=== PATIENT | male | born 1955 | race Caucasian/White ===

== ENCOUNTER → 2017-08-07 13:16 | Outpatient (CLI) | payer SELFPAY ==
--- NOTE | 2017-08-07 13:19 | CT_ITS ---
STUDY: CT LEFT ANKLE WITHOUT CONTRAST REASON FOR EXAM: Male, 62 years old. Prior surgeries of the left ankle and nonunion. RADIATION DOSAGE (If Supplied By Facility): CTDIvol = ( 15.35 ) mGy, DLP = ( 412.55 ) mGycm TECHNIQUE: Thin section transaxial imaging of the ankle was obtained, with sagittal and coronal reconstructed images. Individualized dose optimization techniques were used for this CT. COMPARISON: Comparison is made with prior examination dated March 30, 2017. FINDINGS: The external fixator device has been removed. Once again, there is evidence of prior fusion of the distal tibia with the calcaneus and the talus with multiple screws and sideplate fixation device. There is also evidence of a anterior screw fixation of the distal tibia to the talus. The joint space between the distal tibia and talus is still present. There is also presence of the joint space between the posterior talus and calcaneus. There is evidence of osteopenia of the visualized bones. Diffuse persistent soft tissue swelling. CT/Extremity Lower without Contra IMPRESSION: Prior fixation as described. The joint spaces are still visible. Diffuse osteopenia and soft tissue swelling. Electronically Signed: Markell Osman MD at 9:25 EST Tel [phone], Service support ,
== END ==
PROVIDERS: Family Provider Family Medicine; PCP Family Medicine; Visit Provider Podiatrist
DX: M96.0 Pseudarthrosis after fusion or arthrodesis (principal); Z98.1 Arthrodesis status
CPT/HCPCS: 73700

== ENCOUNTER → 2018-06-18 16:47 | Outpatient (CLI) | payer SELFPAY ==
[2017-03-31 14:56] VITALS: BMI 55.4
[2018-06-18 17:31] LABS: Absolute Lymphocyte Count 0.79 X10^3/ul (0.83-4.51); Absolute Neutrophil Count 4.7 X10^3/uL (2.0-7.7); Basophil# 0.02 X10^3/uL; Basophil% 0.3 % (0-1); Eosinophil# 0.04 X10^3/uL; Eosinophils% 0.6 % (0-5); Hematocrit 42.5 % (40-54); Hemoglobin 12.2 g/dl (13.0-16.5); Lymphocyte # 0.79 X10^3/ul (4.0); Lymphocyte % 12.4 % (19-41); Mean Corp Hgb Conc 28.7 g/gl (32-36); Mean Corpuscular Hgb 25.4 pg (27.0-32.0); Mean Corpuscular Volume 88.5 fL (80-94); Mean Platelet Vol. 10.7 fl (6.2-12.0); Monocyte# 0.77 X10^3/uL; Monocyte% 12.1 % (0-10); Neutrophil # 4.72 X10^3/uL (2.7-7.7); Neutrophil % 74.4 % (47-70); POSITIVE COUNT NO; POSITIVE DIFFERENTIAL NO; POSITIVE MORPHOLOGY NO; Platelet Count 235 K/mm3 (150-450); RBC Distribution Width CV 17.6 % (11.6-14.6); White Blood Count 6.4 K/mm3 (4.4-11.0)
[2018-06-18 17:42] LABS: Erythrocyte Sedimentation Rate 30 mm/hr (0-20)
[2018-06-18 17:53] LABS: ALB/GLOB Ratio 0.6 RATIO (0.9-2.4); AST(SGOT) 18 U/L (15-37); Alanine Aminotransfer ALT/SGPT 19 U/L (16-61); Albumin, Serum 2.9 g/dL (3.2-5.0); Alkaline Phosphatase 96 U/L (45-117); Anion Gap 5 (5-15); BUN 28 mg/dL (7-18); BUN/Creat Ratio 25.2 RATIO (10-20); Calcium,Total 8.2 mg/dL (8.5-10.1); Chloride 97 mmol/L (98-107); Creatinine, Serum 1.11 mg/dL (0.70-1.30); EST Glomerular Filtration Rate 71 mL/min (>60); Est Glom Filt Rate - Afr Amer 86 mL/min (>60); Globulin 4.9 g/dL (2.2-4.2); Glucose 102 mg/dL (74-106); Potassium 4.2 mmol/L (3.5-5.1); Protein, Total 7.8 g/dL (6.4-8.2); Sodium Level 140 mmol/L (136-145)
== END ==
PROVIDERS: Family Provider Family Medicine; PCP Family Medicine; Referring Provider Podiatrist; Visit Provider Podiatrist
DX: L03.119 Cellulitis of unspecified part of limb (principal); L97.509 Non-pressure chronic ulcer of other part of unspecified foot with unspecified severity
CPT/HCPCS: 36415; 80053; 85025; 85652; 86140; 87070; 87077; 87186; 87205

== ENCOUNTER → 2018-07-09 14:31 | Outpatient (CLI) | payer SELFPAY ==
--- NOTE | 2018-07-09 14:41 | CT_ITS ---
HISTORY: TALAR FUSION. Patient has had 3 ankle surgeries and is currently in external fixation device. Scanned in lateral position. TECHNIQUE: Routine bone CT protocol was performed of the . 2-D reformats were performed by the technologist. A radiation dose optimization technique was used for this scan. IV Contrast dosage and agent: None. COMPARISON: CT left ankle 08/07/2017 FINDINGS: Unavoidable streak artifact related to external fixator hardware. 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 Previously seen tibiotalar surgical arthrodesis screws and lateral side plate have been removed and an external fixator put in place. The external fixator is anchored with tibial screws, a posterior calcaneal screw, and left midfoot screw. Surgical resection of the distal left fibula, unchanged. The talar dome shows collapse and fragmentation, new compared to previous in keeping with avascular necrosis. Bone infection is not excluded. Bony irregularity of the tibiotalar interface and subtalar joint without bony union. Fibrous union is still possible. CT/Extremity Lower without Contra IMPRESSION: 1. Interval change with external fixator now in place. 2. The left talar dome shows interval collapse and fragmentation in keeping with avascular necrosis. Underlying bone infection is not excluded. 3. The tibiotalar and subtalar joints show no solid bony union but fibrous union remains possible. Individualized dose optimization techniques were used for this CT. at 0610 Reported and signed by: Kulwant Hamm MD Electronically Signed: Kulwant Hamm, at 6:09 EST Tel , Service support ,
--- OUTSIDE RECORDS SUMMARY | 2018-09-11 02:46 | XMS RPT_ITS ---
:1955 Author Organization [facility] Care Team Providers Name Role Phone DARRIN MEJÍA CNP Attending Unavailable MEREDITH WALSH, DR. DAWSON Raman Primary Care Unavailable OWOC DO, DR. RACHEL Lau Attending Unavailable MEREDITH WALSH, DR. DAWSON Raman Primary Care Unavailable ANAIS WALSH MD. LULU Ospina Consulting Unavailable ANAIS WALSH, MD. LULU Ospina Admitting Unavailable ANAIS WALSH MD. LULU Ospina Attending Unavailable MEREDITH WALSH, DR. DAWSON Raman Primary Care Unavailable MEREDITH WALSH, DR. DAWSON Raman Consulting Unavailable MEREDITH WALSH, DR. DAWSON Raman Primary Care Unavailable ANAIS WALSH MD. LULU Ospina Consulting Unavailable NORA WALSH, DR. WRAY Attending Unavailable FRANIA, CROW J Attending Unavailable UNASSIGNED, DOCTOR Primary Care Unavailable FRANIA, CROW J Attending Unavailable UNASSIGNED, DOCTOR Primary Care Unavailable Fascione, Aubrie Attending Unavailable Fascione, Aubrie Referring Unavailable MEREDITH, DAWSON Primary Care Unavailable Fascione, Aubrie Attending Unavailable Fascione, Aubrie Referring Unavailable MEREDITH, DAWSON Primary Care Unavailable Fascione, Aubrie Attending Unavailable MEREDITH, DAWSON Primary Care Unavailable PROBLEMS PROBLEMS DATE TYPE CONDITION / CODE ATTENDING STATUS SOURCE 04/20/2018 Admitting [facility] compl of other [facility], Active [facility] Diagnosis internal joint CROW J System prosthesis, 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-10) 04/20/2018 Admitting Type 2 diabetes [facility], Active [facility] 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) 04/20/2018 Admitting Charcot's joint, [facility], Active [facility] Diagnosis left ankle and foot CROW J System / M14.672(ICD-10) Repository 08/22/2017 Unknown M96.0 - Fascione, Active [place] Pseudarthrosis after [facility] fusion or Hospital arthrodesis / Repository M96.0(ICD-10) PROCEDURES PROCEDURES No Procedure Records FoundRESULTS RESULTS EXTREMITY LOWER Observed: 07/09/2018 Status: F Source: [place] WITHOUT CONTRA 2:42 PM [facility] HOSPITAL REPOSITORY [facility] Imaging Services [address] [place] [address] Extremity Lower without Contra MR#: [id number] Acct: [id number] Name: SHEREE MUNIZ Rep #: [id number] : 1955 M 63 From: Kulwant Hamm MD PCP: Dawson Olsen DO Status: REG CLI Study: Extremity Lower without Contra Date of Exam: 07/09/18 Exam# [id number] Ordering Dr: Aubrie Valdez DPM HISTORY: TALAR FUSION. Patient has had 3 ankle surgeries and is currently in external fixation device. Scanned in lateral position. TECHNIQUE: Routine bone CT protocol was performed of the . 2-D reformats were performed by the technologist. A radiation dose optimization technique was used for this scan. IV Contrast dosage and agent: None. COMPARISON: CT left ankle 08/07/2017 FINDINGS: Unavoidable streak artifact related to external fixator hardware. 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 Previously seen tibiotalar surgical arthrodesis screws and lateral side plate have been removed and an external fixator put in place. The external fixator is anchored with tibial screws, a posterior calcaneal screw, and left midfoot screw. Surgical resection of the distal left fibula, unchanged. The talar dome shows collapse and fragmentation, new compared to previous in keeping with avascular necrosis. Bone infection is not excluded. Bony irregularity of the tibiotalar interface and subtalar joint without bony union. Fibrous union is still possible. CT/Extremity Lower without Contra IMPRESSION: 1. Interval change with external fixator now in place. 2. The left talar dome shows interval collapse and fragmentation in keeping with avascular necrosis. Underlying bone infection is not excluded. 3. The tibiotalar and subtalar joints show no solid bony union but fibrous union remains possible. Individualized dose optimization techniques were used for this CT. at 0610 Reported and signed by: Kulwant Hamm MD Electronically Signed: Kulwant Hamm, at 6:09 EST Tel , Service support , CC: Dawson Olsen DO; Aubrie Valdez DPM Dehydrating Press Operator: Signed CBC Collected: 06/21/2018 Status: F Source: [facility] 1:47 PM [facility] REPOSITORY TYPE CODE TESTS RESULT OUT OF REFERENCE UNITS RANGE LAB WBC(LOINC) 4.50-10.80 10 3/mcL WBC 5.30 LAB RBCCT(LOINC 4.50-6.00 10 6/mcL ) RBC 4.86 LAB HGB(LOINC) 13.0-17.5 G/dL Low Hgb 12.3 LAB HCT(LOINC) 40.0-52.0 % Low Hct 39.5 LAB MCV(LOINC) 81.0-100.0 fL MCV 81.4 LAB MCH(LOINC) 27.0-33.0 pg Low MCH 25.4 LAB MCHC(LOINC) 32.0-36.0 G/dL Low MCHC 31.2 LAB RDW(LOINC) 11.5-15.5 % High RDW 18.8 LAB PLT(LOINC) 150-450 10 3/mcL Platelet 253 LAB MPV(LOINC) 6.4-10.5 fL MPV 8.2 Performed By: #### CBC, ADIFF, ANEU, TROPI, BMP, PBNP, GFR #### [address] [address] .AUTO DIFF Collected: 06/21/2018 Status: F Source: [facility] 1:47 PM [facility] REPOSITORY TYPE CODE TESTS RESULT OUT OF REFERENCE UNITS RANGE LAB TARI(LOINC) 50.0-75.0 % High Neutrophil % 76.7 LAB LYM(LOINC) 20.0-40.0 % Low Lymphocyte % 13.0 LAB MON(LOINC) 2.0-13.0 % Monocyte % 8.3 LAB EO(LOINC) 0.0-6.0 % Eosinophil % 1.4 LAB BAS(LOINC) 0.0-2.5 % Basophil % 0.6 LAB ABLYM(LOIN 0.90-4.32 10 3/mcL C) Low Lymphocyte, 0.70 Absolute LAB NADIYA(LOINC 0.09-1.40 10 3/mcL ) Monocyte, 0.40 Absolute LAB AEOS(LOINC 0.00-0.65 10 3/mcL ) Eosinophil, 0.10 Absolute LAB ABAS(LOINC 0.00-0.27 10 3/mcL ) Basophil, 0.00 Absolute Performed By: #### CBC, ADIFF, ANEU, TROPI, BMP, PBNP, GFR #### [address] [address] .NEUABS Collected: 06/21/2018 Status: F Source: [facility] 1:47 PM [facility] REPOSITORY TYPE CODE TESTS RESULT OUT OF REFERENCE UNITS RANGE LAB ANEU(LOINC) 2.25-8.10 10 3/mcL Neutrophil, 4.10 Absolute Performed By: #### CBC, ADIFF, ANEU, TROPI, BMP, PBNP, GFR #### [address] [address] TROPI Collected: 06/21/2018 Status: F Source: [facility] 1:47 PM [facility] REPOSITORY TYPE CODE TESTS RESULT OUT OF REFERENCE UNITS RANGE LAB TROPI(LOINC 0.000-0.040 ng/mL ) Troponin I 0.020 Result Comment: Troponin I reference ranges (02/24/14): 0.00-0.040 ng/mL Negative and non-diagnostic. >0.040 ng/mL Consistent with cardiac damage, increased clinical risk and possibility of myocardial infarction. Serial measurements, a rise & fall in test results, clinical history, appropriate symptoms and/or ECG changes may help assess possibility of NH. *Other non-acute coronary syndrome conditions such as CHF, myocarditis, pulmonary emboli, sepsis and cardiac surgery could result in myocardial damage and increased troponin levels. Performed By: #### CBC, ADIFF, ANEU, TROPI, BMP, PBNP, GFR #### [address] [address] BMP Collected: 06/21/2018 Status: F Source: [facility] 1:47 [facility] REPOSITORY TYPE CODE TESTS RESULT OUT OF REFERENCE UNITS RANGE LAB GLU(LOINC) 82-115 mg/dL Glucose High Level 180 LAB NA(LOINC) 136-145 mEq/L Sodium Level 139 LAB K(LOINC) 3.5-5.0 mEq/L Potassium Level 4.5 LAB CL(LOINC) 98-110 mEq/L Chloride 99 LAB CO2(LOINC) 22-32 mEq/L CO2 High 35 LAB EBAL(LOINC 4.0-15.0 mEq/L ) Electrolyte Balance 5.0 LAB BUN(LOINC) 8.0-22.0 mg/dL BUN High 46.0 LAB CRE(LOINC) 0.60-1.40 mg/dL Creatinine Lvl (s) 1.00 LAB BC(LOINC) 10.0-22.0 ratio High BUN/Creatinine 46.0 Ratio LAB CA(LOINC) 8.4-10.1 mg/dL Low Calcium Lvl 7.9 Performed By: #### CBC, ADIFF, ANEU, TROPI, BMP, PBNP, GFR #### [address] [address] PBNP Collected: 06/21/2018 Status: F Source: [facility] 1:47 PM [facility] REPOSITORY TYPE CODE TESTS RESULT OUT OF REFERENCE UNITS RANGE LAB PBNP(LOINC) 0-900 pg/mL High N-Terminal 4628 proBNP Result Comment: NT-proBNP results of less than 300 pg/mL effectively rules out acute congestive heart failure with 99% negative predictive value. Performed By: #### CBC, ADIFF, ANEU, TROPI, BMP, PBNP, GFR #### [address] [address] .GFR Collected: 06/21/2018 Status: F Source: [facility] 1:47 PM [facility] REPOSITORY TYPE CODE TESTS RESULT OUT OF REFERENCE UNITS RANGE LAB GFRAA(LOINC ml/min/1.73 ) sqm GFR >60 Ghanaian Result Comment: GFR Population mean for , Non- Americans Ages 20-29 = 116 mL/min/1.73 sq.m. Ages 30-39 = 107 mL/min/1.73 sq.m. Ages 40-49 = 99 mL/min/1.73 sq.m. Ages 50-59 = 93 mL/min/1.73 sq.m. Ages 60-69 = 85 mL/min/1.73 sq.m. Ages 70+ = 75 mL/min/1.73 sq.m. Chronic Kidney Disease: Less than 60 mL/min/1.73 square meters End Stage Renal Disease: Less than 15 mL/min/1.73 square meters LAB GFRNO(LOINC) ml/min/1.73sqm GFR Non- >60 Result Comment: GFR Population mean for , Non- Americans Ages 20-29 = 116 mL/min/1.73 sq.m. Ages 30-39 = 107 mL/min/1.73 sq.m. Ages 40-49 = 99 mL/min/1.73 sq.m. Ages 50-59 = 93 mL/min/1.73 sq.m. Ages 60-69 = 85 mL/min/1.73 sq.m. Ages 70+ = 75 mL/min/1.73 sq.m. Chronic Kidney Disease: Less than 60 mL/min/1.73 square meters End Stage Renal Disease: Less than 15 mL/min/1.73 square meters Performed By: #### CBC, ADIFF, ANEU, TROPI, BMP, PBNP, GFR #### [place] [id number] [place] [address] XR CHEST 1 VIEW Observed: 06/21/2018 Status: F Source: [facility] 1:13 PM [facility] REPOSITORY ORIGINAL XR CHEST 1 VIEW PORTABLE AP TIME: 1:29 PM CLINICAL STATEMENT: chest pain. COMPARISON: 05/25/2018 FINDINGS: The cardiomediastinal silhouette is unchanged with redemonstration of cardiomegaly. Lung aeration appears similar to the previous examination with coarsening of the lung markings and LEFT lowe r lobe airspace disease. No large effusion, vascular congestion, or pneumothorax is shown. IMPRESSION: No significant change from 05/25/2018. Interpreted By: Va Baird MD Preliminary Report By: Va Baird MD Electronically Signed By: Va Baird MD Dictated Date: 06/21/2018 1:40:18 PM Prelim Date: 06/21/2018 1:40:18 PM Sign Date: 06/21/2018 1:45:12 PM CBC W/DIFF, AUTOMATED Collected: 06/18/2018 Status: F Source: [place] 4:51 PM [facility] REPOSITORY TYPE CODE TESTS RESULT OUT OF RANGE REFERENCE UNITS LAB L100.1000 4.4-11.0 K/mm3 Normal WBC 6.4 LAB L100.1200 4.6-6.2 M/mm3 Normal RBC 4.80 LAB L100.1300 13.0-16.5 g/dl Low HGB 12.2 LAB L100.1400 40-54 % Normal HCT 42.5 LAB L100.1500 80-94 fL Normal MCV 88.5 LAB L100.1600 27.0-32.0 pg Low MCH 25.4 LAB L100.1700 32-36 g/gl Low MCHC 28.7 LAB L100.1810 11.6-14.6 % High RDW CV 17.6 LAB L100.1820 35.1-43.9 fl High RDW SD 56.0 LAB L100.1900 150-450 K/mm3 Normal PLT 235 LAB L100.2000 6.2-12.0 fl Normal MPV 10.7 LAB L100.2100 47-70 % High NEUT% 74.4 LAB L100.2200 19-41 % Low LY% 12.4 LAB L100.2300 0-10 % High MONO% 12.1 LAB L100.2400 0-5 % Normal EO% 0.6 LAB L100.2500 0-1 % Normal BASO% 0.3 LAB L100.2550 0.0-0.9 % Normal IM GRAN % 0.200 Result Comment: IG% - Immature Granulocytes (promyelocytes, myelocytes and metamyelocytes) > 1% indicates that a LEFT SHIFT is Present. LAB L100.2620 2.0-7.7 X10 3/uL Normal Absolute Neut 4.7 LAB L100.2720 0.83-4.51 X10 3/ul Low Absolute Lymph 0.79 Performed By: #### L100.0100, L101.9900 #### [facility] [address] [place], [place], [id number] ERYTHROCYTE SED RATE Collected: 06/18/2018 Status: F Source: [place] 4:51 PM [facility] REPOSITORY TYPE CODE TESTS RESULT OUT OF RANGE REFERENCE UNITS LAB L102.0000 0-20 mm/hr High SED RATE 30 Performed By: #### L100.0100, L101.9900 #### [facility] [address] [place], [place], [address] COMPREHENSIVE METABOLIC Collected: 06/18/2018 Status: F Source: [facility] 4:51 PM [facility] REPOSITORY TYPE CODE TESTS RESULT OUT OF RANGE REFERENCE UNITS LAB L501.0100 74-106 mg/dL Normal GLU 102 Result Comment: Fasting Glucose result from 100 to 125 mg/dL suggests IMPAIRED HOMEOSTASIS per A.D.A. criteria. Please note revised GLUCOSE reference range effective 2017. LAB L501.1000 7-18 mg/dL High BUN 28 LAB L501.1100 0.70-1.30 mg/dL Normal CREAT,SERUM 1.11 Result Comment: The validity of the calculated GFR AND GFRAA in patients over 70 years has not been determined. Clinical correlation is essential. LAB L501.1110 >60 mL/min Normal EST GFR 71 Result Comment: Non- GFR Calc LAB L501.1115 >60 mL/min Normal EST GFR - AA 86 Result Comment: GFR Calc LAB L501.1300 10-20 RATIO High BUN/CRE 25.2 LAB L501.1500 6.4-8.2 g/dL T Normal PROT 7.8 LAB L501.1800 3.2-5.0 g/dL Low ALB 2.9 LAB L501.1950 2.2-4.2 g/dL High GLOB 4.9 LAB L501.2000 0.9-2.4 RATIO Low A/G 0.6 LAB L501.2200 8.5-10.1 mg/dL Low CA 8.2 LAB L501.4100 15-37 U/L Normal AST 18 LAB L501.4305 45-117 U/L Normal ALK P 96 LAB L501.4405 16-61 U/L Normal ALT 19 LAB L501.4600 0.20-1.00 mg/dL T Normal BILI 0.70 LAB L501.5300 136-145 mmol/L NA Normal 140 LAB L501.5600 3.5-5.1 mmol/L K Normal 4.2 LAB L501.5900 98-107 mmol/L Low CL 97 LAB L501.6100 21.0-32.0 mmol/L High CO2 38.0 LAB L501.6200 5-15 Normal GAP 5 Performed By: #### L500.4050, L501.6710 #### [facility] [address] [place], [place], [address] CRP Collected: 06/18/2018 Status: F Source: [place] 4:51 PM [facility] REPOSITORY TYPE CODE TESTS RESULT OUT OF RANGE REFERENCE UNITS LAB L501.6710 0.0-3.0 mg/L High 144.00 C-REACTIVE PROT Result Comment: C-Reactive Protein (CRP) provides useful information for the diagnosis, therapy and monitoring of inflammatory processes and associated diseases. For the evaluation of Relative Risk for Cardiovascular Disease, a High Sensitivity CRP (HSCRP) should be ordered. Performed By: #### L500.4050, L501.6710 #### [facility] [address] [place], [place], [address] Observed: 06/18/2018 Status: F Source: [place] CULTURE, WOUND 12:00 AM [facility] REPOSITORY Comments: LEFT FOOT ULCER Gram Stain Gram Stain 2+ Epithelial cells 3+ Gram positive cocci in chains 1+ Gram negative rods Wound Culture ORGANISM 1: Streptococcus agalactiae (B) Amount Growth 3+ ORGANISM 2: Staphylococcus aureus Amount Growth 2+ ORGANISM 3: Stenotrophomonas maltophilia Amount Growth 3+ Streptococcus agalactiae (B): REACTION Ampicillin $ <=0.25 S Clindamycin $$ <=0.25 S Inducable Clindamycin Resistan - Linezolid $$$$ <=2 S Vancomycin $ 0.5 S (NF) indicates non-formulary drug at [facility]. Approval by Infectious Disease Specialist required before non-formulary drugs may be ordered and/or dispensed. * CLSI guidelines does not recommend testing of cephalosporins. This interpretation is deduced from Beta-lactam/penicillin results. Stenotrophomonas maltophilia: REACTION Levofloxacin $ 0.5 S Trimethoprim/Sulfametho $ <=20 S (NF) indicates non-formulary drug at [facility]. Approval by Infectious Disease Specialist required before non-formulary drugs may be ordered and/or dispensed. Performed By: #### M100.1400 #### [facility] [address] [facility] [place], [address] Collected: 05/30/2018 Status: F Source: [facility] 8:48 AM [facility] REPOSITORY TYPE CODE TESTS RESULT OUT OF RANGE REFERENCE UNITS LAB HGB(LOINC) 13.0-17.5 G/dL Low Hgb 12.9 LAB HCT(LOINC) 40.0-52.0 % Hct 41.8 Performed By: #### HH #### [facility] [address] [place] [address] APTT Collected: 05/29/2018 Status: F Source: [facility] 8:05 AM [facility] REPOSITORY TYPE CODE TESTS RESULT OUT OF REFERENCE UNITS RANGE LAB PDOSE(LOIN C) Heparin dose Heparin IV (APTT) LAB APTT0(LOIN 25.0-35.0 seconds C) High APTT 63.3 Result Comment: For Heparin anticoagulation therapy, the recommended therapeutic range is: 54-77 seconds (APTT Correlation with Anti-Xa therapeutic range of 0.3-0.7 units/ml). PLEASE REFERENCE THE PHARMACY PROTOCOL FOR DOSING. Performed By: #### APTT #### [address] [address] CBC Collected: 05/29/2018 Status: F Source: [facility] 3:48 AM [facility] REPOSITORY TYPE CODE TESTS RESULT OUT OF REFERENCE UNITS RANGE LAB WBC(LOINC) 4.50-10.80 10 3/mcL Low WBC 3.30 LAB RBCCT(LOINC 4.50-6.00 10 6/mcL ) RBC 4.71 LAB HGB(LOINC) 13.0-17.5 G/dL Low Hgb 12.2 LAB HCT(LOINC) 40.0-52.0 % Low Hct 39.3 LAB MCV(LOINC) 81.0-100.0 fL MCV 83.3 LAB MCH(LOINC) 27.0-33.0 pg Low MCH 25.8 LAB MCHC(LOINC) 32.0-36.0 G/dL Low MCHC 31.0 LAB RDW(LOINC) 11.5-15.5 % High RDW 17.6 LAB PLT(LOINC) 150-450 10 3/mcL Platelet 203 LAB MPV(LOINC) 6.4-10.5 fL MPV 8.2 Performed By: #### CBC, ADIFF, ANEU #### [address] [address] .AUTO DIFF Collected: 05/29/2018 Status: F Source: [facility] 3:48 AM [facility] REPOSITORY TYPE CODE TESTS RESULT OUT OF REFERENCE UNITS RANGE LAB TARI(LOINC) 50.0-75.0 % Neutrophil % 64.2 LAB LYM(LOINC) 20.0-40.0 % Low Lymphocyte % 18.9 LAB MON(LOINC) 2.0-13.0 % Monocyte % 11.0 LAB EO(LOINC) 0.0-6.0 % Eosinophil % 5.2 LAB BAS(LOINC) 0.0-2.5 % Basophil % 0.7 LAB ABLYM(LOIN 0.90-4.32 10 3/mcL C) Low Lymphocyte, 0.60 Absolute LAB NADIYA(LOINC 0.09-1.40 10 3/mcL ) Monocyte, 0.40 Absolute LAB AEOS(LOINC 0.00-0.65 10 3/mcL ) Eosinophil, 0.20 Absolute LAB ABAS(LOINC 0.00-0.27 10 3/mcL ) Basophil, 0.00 Absolute Performed By: #### CBCMEGAN, ANEU #### [place] [address] .NEUABS Collected: 05/29/2018 Status: F Source: [facility] 3:48 AM [facility] REPOSITORY TYPE CODE TESTS RESULT OUT OF REFERENCE UNITS RANGE LAB ANEU(LOINC) 2.25-8.10 10 3/mcL Low Neutrophil, 2.10 Absolute Performed By: #### CBC, MEGAN, ANEU #### [place] [address] BMP Collected: 05/29/2018 Status: F Source: [facility] 3:48 AM [facility] REPOSITORY TYPE CODE TESTS RESULT OUT OF REFERENCE UNITS RANGE LAB GLU(LOINC) 82-115 mg/dL Glucose High Level 134 LAB NA(LOINC) 136-145 mEq/L Sodium Level 142 LAB K(LOINC) 3.5-5.0 mEq/L Potassium Level 4.3 LAB CL(LOINC) 98-110 mEq/L Chloride 100 LAB CO2(LOINC) 22-32 mEq/L CO2 High 36 LAB EBAL(LOINC 4.0-15.0 mEq/L ) Electrolyte Balance 6.0 LAB BUN(LOINC) 8.0-22.0 mg/dL BUN High 38.0 LAB CRE(LOINC) 0.60-1.40 mg/dL Creatinine Lvl (s) 1.18 LAB BC(LOINC) 10.0-22.0 ratio High BUN/Creatinine 32.2 Ratio LAB CA(LOINC) 8.4-10.1 mg/dL Low Calcium Lvl 7.8 Performed By: #### BMP, GFR #### [place] [address] .GFR Collected: 05/29/2018 Status: F Source: [facility] 3:48 AM [facility] REPOSITORY TYPE CODE TESTS RESULT OUT OF REFERENCE UNITS RANGE LAB GFRAA(LOINC ml/min/1.73 ) sqm GFR >60 Ghanaian Result Comment: GFR Population mean for , Non- Americans Ages 20-29 = 116 mL/min/1.73 sq.m. Ages 30-39 = 107 mL/min/1.73 sq.m. Ages 40-49 = 99 mL/min/1.73 sq.m. Ages 50-59 = 93 mL/min/1.73 sq.m. Ages 60-69 = 85 mL/min/1.73 sq.m. Ages 70+ = 75 mL/min/1.73 sq.m. Chronic Kidney Disease: Less than 60 mL/min/1.73 square meters End Stage Renal Disease: Less than 15 mL/min/1.73 square meters LAB GFRNO(LOINC) ml/min/1.73sqm GFR Non- >60 Result Comment: GFR Population mean for , Non- Americans Ages 20-29 = 116 mL/min/1.73 sq.m. Ages 30-39 = 107 mL/min/1.73 sq.m. Ages 40-49 = 99 mL/min/1.73 sq.m. Ages 50-59 = 93 mL/min/1.73 sq.m. Ages 60-69 = 85 mL/min/1.73 sq.m. Ages 70+ = 75 mL/min/1.73 sq.m. Chronic Kidney Disease: Less than 60 mL/min/1.73 square meters End Stage Renal Disease: Less than 15 mL/min/1.73 square meters Performed By: #### BMP, GFR #### [place] [address] APTT Collected: 05/29/2018 Status: F Source: [facility] 1:40 AM [facility] REPOSITORY TYPE CODE TESTS RESULT OUT OF RANGE REFERENCE UNITS LAB PDOSE(LOIN C) Heparin dose Heparin IV (APTT) LAB APTT0(LOIN 25.0-35.0 seconds C) Abnormal APTT 123.2 Alert Result Comment: For Heparin anticoagulation therapy, the recommended therapeutic range is: 54-77 seconds (APTT Correlation with Anti-Xa therapeutic range of 0.3-0.7 units/ml). PLEASE REFERENCE THE PHARMACY PROTOCOL FOR DOSING. Performed By: #### APTT #### [address] [address] APTT Collected: 05/28/2018 Status: F Source: [facility] 6:01 PM [facility] REPOSITORY TYPE CODE TESTS RESULT OUT OF REFERENCE UNITS RANGE LAB PDOSE(LOIN C) Heparin dose Heparin IV (APTT) LAB APTT0(LOIN 25.0-35.0 seconds C) High APTT 40.4 Result Comment: For Heparin anticoagulation therapy, the recommended therapeutic range is: 54-77 seconds (APTT Correlation with Anti-Xa therapeutic range of 0.3-0.7 units/ml). PLEASE REFERENCE THE PHARMACY PROTOCOL FOR DOSING. Performed By: #### APTT #### [address] [address] APTT Collected: 05/28/2018 Status: F Source: [facility] 12:46 PM [facility] REPOSITORY TYPE CODE TESTS RESULT OUT OF REFERENCE UNITS RANGE LAB PDOSE(LOIN C) Heparin dose Heparin IV (APTT) LAB APTT0(LOIN 25.0-35.0 seconds C) High APTT 57.1 Result Comment: For Heparin anticoagulation therapy, the recommended therapeutic range is: 54-77 seconds (APTT Correlation with Anti-Xa therapeutic range of 0.3-0.7 units/ml). PLEASE REFERENCE THE PHARMACY PROTOCOL FOR DOSING. Performed By: #### APTT #### [address] [address] CBC Collected: 05/28/2018 Status: F Source: [facility] 5:57 AM [facility] REPOSITORY TYPE CODE TESTS RESULT OUT OF REFERENCE UNITS RANGE LAB WBC(LOINC) 4.50-10.80 10 3/mcL Low WBC 3.30 LAB RBCCT(LOINC 4.50-6.00 10 6/mcL ) RBC 4.58 LAB HGB(LOINC) 13.0-17.5 G/dL Low Hgb 11.9 LAB HCT(LOINC) 40.0-52.0 % Low Hct 38.4 LAB MCV(LOINC) 81.0-100.0 fL MCV 83.7 LAB MCH(LOINC) 27.0-33.0 pg Low MCH 25.9 LAB MCHC(LOINC) 32.0-36.0 G/dL Low MCHC 30.9 LAB RDW(LOINC) 11.5-15.5 % High RDW 17.3 LAB PLT(LOINC) 150-450 10 3/mcL Platelet 212 LAB MPV(LOINC) 6.4-10.5 fL MPV 7.9 Performed By: #### CBC, ADIFF, ANEU, BMP, GFR #### [place] [address] .AUTO DIFF Collected: 05/28/2018 Status: F Source: [facility] 5:57 AM [facility] REPOSITORY TYPE CODE TESTS RESULT OUT OF REFERENCE UNITS RANGE LAB TARI(LOINC) 50.0-75.0 % Neutrophil % 64.9 LAB LYM(LOINC) 20.0-40.0 % Low Lymphocyte % 16.8 LAB MON(LOINC) 2.0-13.0 % Monocyte % 12.4 LAB EO(LOINC) 0.0-6.0 % Eosinophil % 5.3 LAB BAS(LOINC) 0.0-2.5 % Basophil % 0.6 LAB ABLYM(LOIN 0.90-4.32 10 3/mcL C) Low Lymphocyte, 0.60 Absolute LAB NADIYA(LOINC 0.09-1.40 10 3/mcL ) Monocyte, 0.40 Absolute LAB AEOS(LOINC 0.00-0.65 10 3/mcL ) Eosinophil, 0.20 Absolute LAB ABAS(LOINC 0.00-0.27 10 3/mcL ) Basophil, 0.00 Absolute Performed By: #### CBC, ADIFF, ANEU, BMP, GFR #### [place] [address] .NEUABS Collected: 05/28/2018 Status: F Source: [facility] 5:57 AM [facility] REPOSITORY TYPE CODE TESTS RESULT OUT OF REFERENCE UNITS RANGE LAB ANEU(LOINC) 2.25-8.10 10 3/mcL Low Neutrophil, 2.20 Absolute Performed By: #### CBC, ADIFF, ANEU, BMP, GFR #### [place] [address] BMP Collected: 05/28/2018 Status: F Source: [facility] 5:57 AM [facility] REPOSITORY TYPE CODE TESTS RESULT OUT OF REFERENCE UNITS RANGE LAB GLU(LOINC) 82-115 mg/dL Glucose High Level 144 LAB NA(LOINC) 136-145 mEq/L Sodium Level 142 LAB K(LOINC) 3.5-5.0 mEq/L Potassium Level 4.3 LAB CL(LOINC) 98-110 mEq/L Low Chloride 97 LAB CO2(LOINC) 22-32 mEq/L CO2 High 38 LAB EBAL(LOINC 4.0-15.0 mEq/L ) Electrolyte Balance 7.0 LAB BUN(LOINC) 8.0-22.0 mg/dL BUN High 38.0 LAB CRE(LOINC) 0.60-1.40 mg/dL Creatinine Lvl (s) 1.29 LAB BC(LOINC) 10.0-22.0 ratio High BUN/Creatinine 29.5 Ratio LAB CA(LOINC) 8.4-10.1 mg/dL Low Calcium Lvl 7.7 Performed By: #### CBC, ADIFF, ANEU, BMP, GFR #### [place] [address] .GFR Collected: 05/28/2018 Status: F Source: [facility] 5:57 AM [facility] REPOSITORY TYPE CODE TESTS RESULT OUT OF REFERENCE UNITS RANGE LAB GFRAA(LOINC ml/min/1.73 ) sqm GFR >60 [place] Result Comment: GFR Population mean for , Non- Americans Ages 20-29 = 116 mL/min/1.73 sq.m. Ages 30-39 = 107 mL/min/1.73 sq.m. Ages 40-49 = 99 mL/min/1.73 sq.m. Ages 50-59 = 93 mL/min/1.73 sq.m. Ages 60-69 = 85 mL/min/1.73 sq.m. Ages 70+ = 75 mL/min/1.73 sq.m. Chronic Kidney Disease: Less than 60 mL/min/1.73 square meters End Stage Renal Disease: Less than 15 mL/min/1.73 square meters LAB GFRNO(LOINC) ml/min/1.73sqm GFR Non- 56 Result Comment: GFR Population mean for , Non- Americans Ages 20-29 = 116 mL/min/1.73 sq.m. Ages 30-39 = 107 mL/min/1.73 sq.m. Ages 40-49 = 99 mL/min/1.73 sq.m. Ages 50-59 = 93 mL/min/1.73 sq.m. Ages 60-69 = 85 mL/min/1.73 sq.m. Ages 70+ = 75 mL/min/1.73 sq.m. Chronic Kidney Disease: Less than 60 mL/min/1.73 square meters End Stage Renal Disease: Less than 15 mL/min/1.73 square meters Performed By: #### CBC, ADIFF, ANEU, BMP, GFR #### [address] [address] APTT Collected: 05/28/2018 Status: F Source: [facility] 5:57 AM [facility] REPOSITORY TYPE CODE TESTS RESULT OUT OF REFERENCE UNITS RANGE LAB PDOSE(LOIN C) Heparin dose Heparin IV (APTT) LAB APTT0(LOIN 25.0-35.0 seconds C) High APTT 84.6 Result Comment: For Heparin anticoagulation therapy, the recommended therapeutic range is: 54-77 seconds (APTT Correlation with Anti-Xa therapeutic range of 0.3-0.7 units/ml). PLEASE REFERENCE THE PHARMACY PROTOCOL FOR DOSING. Performed By: #### APTT #### [address] [address] APTT Collected: 05/27/2018 Status: F Source: [facility] 8:58 AM [facility] REPOSITORY TYPE CODE TESTS RESULT OUT OF REFERENCE UNITS RANGE LAB PDOSE(LOIN C) Heparin dose Heparin IV (APTT) LAB APTT0(LOIN 25.0-35.0 seconds C) High APTT 75.0 Result Comment: For Heparin anticoagulation therapy, the recommended therapeutic range is: 54-77 seconds (APTT Correlation with Anti-Xa therapeutic range of 0.3-0.7 units/ml). PLEASE REFERENCE THE PHARMACY PROTOCOL FOR DOSING. Performed By: #### APTT #### [address] [address] CBC Collected: 05/27/2018 Status: F Source: [facility] 3:28 AM [facility] REPOSITORY TYPE CODE TESTS RESULT OUT OF REFERENCE UNITS RANGE LAB WBC(LOINC) 4.50-10.80 10 3/mcL Low WBC 4.20 LAB RBCCT(LOINC 4.50-6.00 10 6/mcL ) Low RBC 4.39 LAB HGB(LOINC) 13.0-17.5 G/dL Low Hgb 11.4 LAB HCT(LOINC) 40.0-52.0 % Low Hct 37.0 LAB MCV(LOINC) 81.0-100.0 fL MCV 84.4 LAB MCH(LOINC) 27.0-33.0 pg Low MCH 26.0 LAB MCHC(LOINC) 32.0-36.0 G/dL Low MCHC 30.8 LAB RDW(LOINC) 11.5-15.5 % High RDW 17.7 LAB PLT(LOINC) 150-450 10 3/mcL Platelet 226 LAB MPV(LOINC) 6.4-10.5 fL MPV 8.4 Performed By: #### CBC, ADIFF, ANEU, APTT #### [address] [address] .AUTO DIFF Collected: 05/27/2018 Status: F Source: [facility] 3:28 AM [facility] REPOSITORY TYPE CODE TESTS RESULT OUT OF REFERENCE UNITS RANGE LAB TARI(LOINC) 50.0-75.0 % Neutrophil % 64.9 LAB LYM(LOINC) 20.0-40.0 % Low Lymphocyte % 19.7 LAB MON(LOINC) 2.0-13.0 % Monocyte % 10.4 LAB EO(LOINC) 0.0-6.0 % Eosinophil % 4.4 LAB BAS(LOINC) 0.0-2.5 % Basophil % 0.6 LAB ABLYM(LOIN 0.90-4.32 10 3/mcL C) Low Lymphocyte, 0.80 Absolute LAB NADIYA(LOINC 0.09-1.40 10 3/mcL ) Monocyte, 0.40 Absolute LAB AEOS(LOINC 0.00-0.65 10 3/mcL ) Eosinophil, 0.20 Absolute LAB ABAS(LOINC 0.00-0.27 10 3/mcL ) Basophil, 0.00 Absolute Performed By: #### CBC, ADIFF, ANEU, APTT #### [address] [address] .NEUABS Collected: 05/27/2018 Status: F Source: [facility] 3:28 AM [facility] REPOSITORY TYPE CODE TESTS RESULT OUT OF REFERENCE UNITS RANGE LAB ANEU(LOINC) 2.25-8.10 10 3/mcL Neutrophil, 2.70 Absolute Performed By: #### CBC, ADIFF, ANEU, APTT #### [address] [address] APTT Collected: 05/27/2018 Status: F Source: [facility] 3:28 AM [facility] REPOSITORY TYPE CODE TESTS RESULT OUT OF REFERENCE UNITS RANGE LAB PDOSE(LOIN C) Heparin dose Heparin IV (APTT) LAB APTT0(LOIN 25.0-35.0 seconds C) High APTT 68.2 Result Comment: For Heparin anticoagulation therapy, the recommended therapeutic range is: 54-77 seconds (APTT Correlation with Anti-Xa therapeutic range of 0.3-0.7 units/ml). PLEASE REFERENCE THE PHARMACY PROTOCOL FOR DOSING. Performed By: #### CBC, ADIFF, ANEU, APTT #### [address] [address] APTT Collected: 05/26/2018 Status: F Source: [facility] 9:42 PM [facility] REPOSITORY TYPE CODE TESTS RESULT OUT OF REFERENCE UNITS RANGE LAB PDOSE(LOIN C) Heparin dose Heparin IV (APTT) LAB APTT0(LOIN 25.0-35.0 seconds C) High APTT 64.4 Result Comment: For Heparin anticoagulation therapy, the recommended therapeutic range is: 54-77 seconds (APTT Correlation with Anti-Xa therapeutic range of 0.3-0.7 units/ml). PLEASE REFERENCE THE PHARMACY PROTOCOL FOR DOSING. Performed By: #### APTT #### [address] [address] APTT Collected: 05/26/2018 Status: F Source: [facility] 2:50 PM [facility] REPOSITORY TYPE CODE TESTS RESULT OUT OF REFERENCE UNITS RANGE LAB PDOSE(LOIN C) Heparin dose Heparin IV (APTT) LAB APTT0(LOIN 25.0-35.0 seconds C) High APTT 59.6 Result Comment: For Heparin anticoagulation therapy, the recommended therapeutic range is: 54-77 seconds (APTT Correlation with Anti-Xa therapeutic range of 0.3-0.7 units/ml). PLEASE REFERENCE THE PHARMACY PROTOCOL FOR DOSING. Performed By: #### APTT #### [address] [address] APTT Collected: 05/26/2018 Status: F Source: [facility] 8:40 AM [facility] REPOSITORY TYPE CODE TESTS RESULT OUT OF REFERENCE UNITS RANGE LAB PDOSE(LOIN C) Heparin dose Heparin IV (APTT) LAB APTT0(LOIN 25.0-35.0 seconds C) High APTT 71.8 Result Comment: For Heparin anticoagulation therapy, the recommended therapeutic range is: 54-77 seconds (APTT Correlation with Anti-Xa therapeutic range of 0.3-0.7 units/ml). PLEASE REFERENCE THE PHARMACY PROTOCOL FOR DOSING. Performed By: #### APTT #### [address] [address] BMP Collected: 05/26/2018 Status: F Source: [facility] 3:48 AM [facility] REPOSITORY TYPE CODE TESTS RESULT OUT OF REFERENCE UNITS RANGE LAB GLU(LOINC) 82-115 mg/dL Glucose High Level 133 LAB NA(LOINC) 136-145 mEq/L Sodium Level 141 LAB K(LOINC) 3.5-5.0 mEq/L Potassium Level 4.0 LAB CL(LOINC) 98-110 mEq/L Chloride 98 LAB CO2(LOINC) 22-32 mEq/L CO2 High 37 LAB EBAL(LOINC 4.0-15.0 mEq/L ) Electrolyte Balance 6.0 LAB BUN(LOINC) 8.0-22.0 mg/dL BUN High 33.0 LAB CRE(LOINC) 0.60-1.40 mg/dL Creatinine Lvl (s) 1.04 LAB BC(LOINC) 10.0-22.0 ratio High BUN/Creatinine 31.7 Ratio LAB CA(LOINC) 8.4-10.1 mg/dL Low Calcium Lvl 7.9 Performed By: #### BMP, MG, GFR #### [address] [address] MG Collected: 05/26/2018 Status: F Source: [facility] 3:48 AM [facility] REPOSITORY TYPE CODE TESTS RESULT OUT OF REFERENCE UNITS RANGE LAB MG(LOINC) 1.6-2.4 mg/dL Magnesium Lvl 2.1 Performed By: #### BMP, MG, GFR #### [address] [address] .GFR Collected: 05/26/2018 Status: F Source: [facility] 3:48 AM [facility] REPOSITORY TYPE CODE TESTS RESULT OUT OF REFERENCE UNITS RANGE LAB GFRAA(LOINC ml/min/1.73 ) sqm GFR >60 Ghanaian Result Comment: GFR Population mean for , Non- Americans Ages 20-29 = 116 mL/min/1.73 sq.m. Ages 30-39 = 107 mL/min/1.73 sq.m. Ages 40-49 = 99 mL/min/1.73 sq.m. Ages 50-59 = 93 mL/min/1.73 sq.m. Ages 60-69 = 85 mL/min/1.73 sq.m. Ages 70+ = 75 mL/min/1.73 sq.m. Chronic Kidney Disease: Less than 60 mL/min/1.73 square meters End Stage Renal Disease: Less than 15 mL/min/1.73 square meters LAB GFRNO(LOINC) ml/min/1.73sqm GFR Non- >60 Result Comment: GFR Population mean for , Non- Americans Ages 20-29 = 116 mL/min/1.73 sq.m. Ages 30-39 = 107 mL/min/1.73 sq.m. Ages 40-49 = 99 mL/min/1.73 sq.m. Ages 50-59 = 93 mL/min/1.73 sq.m. Ages 60-69 = 85 mL/min/1.73 sq.m. Ages 70+ = 75 mL/min/1.73 sq.m. Chronic Kidney Disease: Less than 60 mL/min/1.73 square meters End Stage Renal Disease: Less than 15 mL/min/1.73 square meters Performed By: #### BMP, MG, GFR #### [place] [address] CBC Collected: 05/26/2018 Status: F Source: [facility] 1:52 AM [facility] REPOSITORY TYPE CODE TESTS RESULT OUT OF REFERENCE UNITS RANGE LAB WBC(LOINC) 4.50-10.80 10 3/mcL WBC 4.80 LAB RBCCT(LOINC 4.50-6.00 10 6/mcL ) RBC 4.87 LAB HGB(LOINC) 13.0-17.5 G/dL Low Hgb 12.7 LAB HCT(LOINC) 40.0-52.0 % Hct 41.0 LAB MCV(LOINC) 81.0-100.0 fL MCV 84.2 LAB MCH(LOINC) 27.0-33.0 pg Low MCH 26.0 LAB MCHC(LOINC) 32.0-36.0 G/dL Low MCHC 30.9 LAB RDW(LOINC) 11.5-15.5 % High RDW 17.6 LAB PLT(LOINC) 150-450 10 3/mcL Platelet 227 LAB MPV(LOINC) 6.4-10.5 fL MPV 8.0 Performed By: #### CBC, ADIFF, ANEU, APTT #### [address] [address] .AUTO DIFF Collected: 05/26/2018 Status: F Source: [facility] 1:52 AM [facility] REPOSITORY TYPE CODE TESTS RESULT OUT OF REFERENCE UNITS RANGE LAB TARI(LOINC) 50.0-75.0 % Neutrophil % 63.9 LAB LYM(LOINC) 20.0-40.0 % Lymphocyte % 22.5 LAB MON(LOINC) 2.0-13.0 % Monocyte % 9.5 LAB EO(LOINC) 0.0-6.0 % Eosinophil % 3.6 LAB BAS(LOINC) 0.0-2.5 % Basophil % 0.5 LAB ABLYM(LOIN 0.90-4.32 10 3/mcL C) Lymphocyte, 1.10 Absolute LAB NADIYA(LOINC 0.09-1.40 10 3/mcL ) Monocyte, 0.50 Absolute LAB AEOS(LOINC 0.00-0.65 10 3/mcL ) Eosinophil, 0.20 Absolute LAB ABAS(LOINC 0.00-0.27 10 3/mcL ) Basophil, 0.00 Absolute Performed By: #### CBC, ADIFF, ANEU, APTT #### [address] [address] .NEUABS Collected: 05/26/2018 Status: F Source: [facility] 1:52 AM [facility] REPOSITORY TYPE CODE TESTS RESULT OUT OF REFERENCE UNITS RANGE LAB ANEU(LOINC) 2.25-8.10 10 3/mcL Neutrophil, 3.10 Absolute Performed By: #### CBC, ADIFF, ANEU, APTT #### [facility] [address] [place] [id number] APTT Collected: 05/26/2018 Status: F Source: [facility] 1:52 AM [facility] REPOSITORY TYPE CODE TESTS RESULT OUT OF REFERENCE UNITS RANGE LAB PDOSE(LOIN C) Heparin dose Unknown (APTT) LAB APTT0(LOIN 25.0-35.0 seconds C) APTT 30.4 Result Comment: For Heparin anticoagulation therapy, the recommended therapeutic range is: 54-77 seconds (APTT Correlation with Anti-Xa therapeutic range of 0.3-0.7 units/ml). PLEASE REFERENCE THE PHARMACY PROTOCOL FOR DOSING. Performed By: #### CBC, ADIFF, ANEU, APTT #### [address] [address] [address] ANGIOGRAPHY CHEST Observed: 05/26/2018 Status: F Source: [place] W/CONTRAST 12:22 AM [facility] REPOSITORY ORIGINAL CTA chest with IV contrast, PE Protocol with 3-D rendering and Postprocessing Clinical statement: Acute hypoxia, recent surgery Comparison: Chest x-ray 05/25/2018 3-D rendering and postprocessing were performed on an independent workstation. Axial, reconstructed coronal/sagittal, and 3-D rendered images were reviewed. This exam was performed according to our depa rtmental dose-optimization program which includes automated exposure control, adjustment of the mA and/or kVp according to patient size and/or use of iterative reconstruction technique where applicable. FINDINGS: Significant pulmonary emboli noted beginning in the mid to distal portion of the RIGHT main pulmonary artery, extending to the lobar and segmental branches of the RIGHT upper, middle, and lowe r lobes. No pulmonary arterial filling defects is seen on the LEFT side. No pericardial pleural effusion. No pneumothorax. The LEFT ventricle is somewhat enlarged. No CT evidence of apparent RIGHT heart strain noted. The aorta shows no dilatation or dissection. No adenopathy is noted. No pneumothorax. There scattered areas of probable subsegmental atelectasis, most prominently in the LEFT lung base, but no definite consolidation noted. IMPRESSION: Significant PE in the RIGHT main pulmonary artery extending to lobar and segmental branches. 4 S. Charge nurse was immediately informed at the time of dictation and she will be notifying the patient's physician. DOCTOR, PLEASE ATTEND TO THIS REPORT IMMEDIATELY! Interpreted By: Lazaro Berger DO Preliminary Report By: Lazaro Berger DO Electronically Signed By: Lazaro Berger DO Dictated Date: 05/26/2018 1:12:27 AM Prelim Date: 05/26/2018 1:12:27 AM Sign Date: 05/26/2018 1:21:12 AM TROPI Collected: 05/25/2018 Status: F Source: [facility] 11:52 PM [facility] REPOSITORY TYPE CODE TESTS RESULT OUT OF REFERENCE UNITS RANGE LAB TROPI(LOINC 0.000-0.040 ng/mL ) Troponin I 0.028 Result Comment: Troponin I reference ranges (02/24/14): 0.00-0.040 ng/mL Negative and non-diagnostic. >0.040 ng/mL Consistent with cardiac damage, increased clinical risk and possibility of myocardial infarction. Serial measurements, a rise & fall in test results, clinical history, appropriate symptoms and/or ECG changes may help assess possibility of NH. *Other non-acute coronary syndrome conditions such as CHF, myocarditis, pulmonary emboli, sepsis and cardiac surgery could result in myocardial damage and increased troponin levels. Performed By: #### TROPI #### [place] [address] BG Collected: 05/25/2018 Status: F Source: [facility] 11:34 PM [facility] REPOSITORY TYPE CODE TESTS RESULT OUT OF REFERENCE UNITS RANGE LAB PH(LOINC) 7.380-7.460 pH 7.414 LAB PCO2(LOINC 32.0-46.0 mmHg ) pCO2 High 55.3 LAB PO2(LOINC) 74.0-108.0 mmHg Low pO2 68.3 LAB HCO3(LOINC 21.0-29.0 mmol/L ) HCO3 High 34.6 LAB TCO2(LOINC 22.0-30.0 mmol/L ) CO2 Totl High 36.3 LAB BE(LOINC) mmol/L Base Excess 8.3 LAB O2SAT(LOIN 92.0-96.0 % C) O2 Sat 94.3 LAB BPRES(LOIN mmHg C) Barometric 742 Pressure Performed By: #### BG #### [place] [address] XR CHEST 1 VIEW Observed: 05/25/2018 Status: F Source: [facility] 4:24 PM [facility] REPOSITORY ORIGINAL XR CHEST 1 VIEW CLINICAL STATEMENT: chest pain COMPARISON: 11/04/2016 FINDINGS:The heart is enlarged. The central structures are accentuated by technical factors and body habitus. There is limited evaluation of the lung parenchyma due to body habitus and portable techniqu e with mild coarsening of the lung markings stable when compared to prior films. No pneumothorax or pneumomediastinum is noted IMPRESSION:Stable cardiomegaly and coarsened lung markings Interpreted By: Vanita Quick MD Preliminary Report By: Vanita Quick MD Electronically Signed By: Vanita Quick MD Dictated Date: 05/25/2018 4:26:55 PM Prelim Date: 05/25/2018 4:26:55 PM Sign Date: 05/25/2018 4:27:30 PM CBC Collected: 05/25/2018 Status: F Source: [facility] 4:21 PM [facility] REPOSITORY TYPE CODE TESTS RESULT OUT OF REFERENCE UNITS RANGE LAB WBC(LOINC) 4.60-10.80 10 3/mcL WBC 5.00 LAB RBCCT(LOINC 4.04-6.13 10 6/mcL ) RBC 4.99 LAB HGB(LOINC) 14.0-18.0 G/dL Low Hgb 12.9 LAB HCT(LOINC) 42.0-52.0 % Low Hct 41.5 LAB MCV(LOINC) 80.0-94.0 fL MCV 83.2 LAB MCH(LOINC) 27.0-31.2 pg Low MCH 25.8 LAB MCHC(LOINC) 31.8-35.4 G/dL Low MCHC 31.0 LAB RDW(LOINC) 11.5-14.5 % High RDW 17.4 LAB PLT(LOINC) 130-400 10 3/mcL Platelet 258 LAB MPV(LOINC) 7.4-10.4 fL MPV 8.0 Performed By: #### CBC, ADIFF, ANEU #### [address] [address] #### BMP, TROP, PBNP, GFR #### [address] [address] .AUTO DIFF Collected: 05/25/2018 Status: F Source: [facility] 4:21 PM [facility] REPOSITORY TYPE CODE TESTS RESULT OUT OF REFERENCE UNITS RANGE LAB TARI(LOINC) 37.0-80.0 % Neutrophil % 73.6 LAB LYM(LOINC) 10.0-50.0 % Lymphocyte % 16.6 LAB MON(LOINC) 1.7-13.0 % Monocyte % 7.4 LAB EO(LOINC) 0.0-7.0 % Eosinophil % 1.7 LAB BAS(LOINC) 0.0-2.5 % Basophil % 0.7 LAB ABLYM(LOIN 0.77-3.85 10 3/mcL C) Lymphocyte, 0.80 Absolute LAB NADIYA(LOINC 0.15-1.00 10 3/mcL ) Monocyte, 0.40 Absolute LAB AEOS(LOINC 0.00-0.40 10 3/mcL ) Eosinophil, 0.10 Absolute LAB ABAS(LOINC 0.00-0.19 10 3/mcL ) Basophil, 0.00 Absolute Performed By: #### CBC, ADIFF, ANEU #### [address] [address] #### BMP, TROP, PBNP, GFR #### [place] [address] .NEUABS Collected: 05/25/2018 Status: F Source: [facility] 4:21 [facility] REPOSITORY TYPE CODE TESTS RESULT OUT OF REFERENCE UNITS RANGE LAB ANEU(LOINC) 2.85-6.16 10 3/mcL Neutrophil, 3.70 Absolute Performed By: #### CBC, ADIFF, ANEU #### [address] [address] #### BMP, TROP, PBNP, GFR #### [place] [address] BMP Collected: 05/25/2018 Status: F Source: [facility] 4:21 [facility] REPOSITORY TYPE CODE TESTS RESULT OUT OF REFERENCE UNITS RANGE LAB GLU(LOINC) 80-115 mg/dL Glucose High Level 153 LAB NA(LOINC) 136-145 mmol/L Sodium Level 137 LAB K(LOINC) 3.5-5.1 mmol/L Potassium Level 4.6 LAB CL(LOINC) 98-107 mmol/L Chloride 99 LAB CO2(LOINC) 23-31 mmol/L CO2 High 35 LAB EBAL(LOINC mEq/L ) Electrolyte Balance 3.0 LAB BUN(LOINC) 7-18 mg/dL BUN High 35 LAB CRE(LOINC) 0.70-1.30 mg/dL Creatinine Lvl (s) 1.20 LAB BC(LOINC) 7-27 ratio High BUN/Creatinine 29 Ratio LAB CA(LOINC) 8.4-10.2 mg/dL Low Calcium Lvl 8.2 Performed By: #### CBC, ADIFF, ANEU #### [place] [id number] #### BMP, TROP, PBNP, GFR #### [place] [address] TROP Collected: 05/25/2018 Status: F Source: [facility] 4:21 [facility] REPOSITORY TYPE CODE TESTS RESULT OUT OF REFERENCE UNITS RANGE LAB TROP(LOINC) 0.000-0.040 ng/mL High Troponin 0.062 Result Comment: Troponin I reference range: 0.00-0.040 ng/mL Negative and non-diagnostic. >0.040 ng/mL Consistent with cardiac damage, increased clinical risk and possibility of myocardial infarction. Serial measurements, a rise & fall in test results, clinical history, appropriate symptoms and/or ECG changes may help assess possibility of NH. *Other non-acute coronary syndrome conditions such as CHF, myocarditis, pulmonary emboli, sepsis and cardiac surgery could result in myocardial damage and increased troponin levels. Performed By: #### CBC, ADIFF, ANEU #### [place] [id number] #### BMP, TROP, PBNP, GFR #### [place] [address] PBNP Collected: 05/25/2018 Status: F Source: [facility] 4:21 [facility] REPOSITORY TYPE CODE TESTS RESULT OUT OF REFERENCE UNITS RANGE LAB PBNP(LOINC) 0-125 pg/mL High N-Terminal 4518 proBNP Result Comment: NT-proBNP results of less than 300 pg/mL effectively rules out acute congestive heart failure with 99% negative predictive value. Performed By: #### CBC, ADIFF, ANEU #### [place] [id number] #### BMP, TROP, PBNP, GFR #### [address] [address] .GFR Collected: 05/25/2018 Status: F Source: [facility] 4:21 [facility] REPOS[facility] TYPE CODE TESTS RESULT OUT OF REFERENCE UNITS RANGE LAB GFRAA(LOINC ml/min/1.73 ) sqm GFR 74 Ghanaian Result Comment: GFR Population mean for , Non- Americans Ages 20-29 = 116 mL/min/1.73 sq.m. Ages 30-39 = 107 mL/min/1.73 sq.m. Ages 40-49 = 99 mL/min/1.73 sq.m. Ages 50-59 = 93 mL/min/1.73 sq.m. Ages 60-69 = 85 mL/min/1.73 sq.m. Ages 70+ = 75 mL/min/1.73 sq.m. Chronic Kidney Disease: Less than 60 mL/min/1.73 square meters End Stage Renal Disease: Less than 15 mL/min/1.73 square meters LAB GFRNO(LOINC) ml/min/1.73sqm GFR Non- 61 Result Comment: GFR Population mean for , Non- Americans Ages 20-29 = 116 mL/min/1.73 sq.m. Ages 30-39 = 107 mL/min/1.73 sq.m. Ages 40-49 = 99 mL/min/1.73 sq.m. Ages 50-59 = 93 mL/min/1.73 sq.m. Ages 60-69 = 85 mL/min/1.73 sq.m. Ages 70+ = 75 mL/min/1.73 sq.m. Chronic Kidney Disease: Less than 60 mL/min/1.73 square meters End Stage Renal Disease: Less than 15 mL/min/1.73 square meters Performed By: #### CBC, ADIFF, ANEU #### [facility] [address] [address] #### BMP, TROP, PBNP, GFR #### [address] [address] CBC WITH DIFF Collected: 04/21/2018 Status: F Source: [facility] 5:07 AM SYSTEM REPOSITORY TYPE CODE TESTS RESULT OUT OF REFERENCE UNITS RANGE LAB DTYP DIFF TYPE AUTO DIFF LAB IMGP 0.0-1.0 % IMMATURE NEUT % 0.30 LAB NEUT 50-70 % NEUTROPHIL High 77.00 LAB LYPH 20-40 % Low LYMPHOCYTE 12.00 LAB MONO 0-8 % MONOCYTE High 8.60 LAB EOS 0-3 % EOSINOPHIL 1.90 LAB BASO 0-1 % BASOPHIL 0.20 LAB AIMG 0.0-0.1 K/UL AB IMMATURE NEUT 0.02 LAB AGRA 1.8-7.7 K/UL ABS NEUTROPHILS 4.47 LAB ALYM 1.2-3.2 K/UL Low ABS LYMPH 0.70 LAB NADIYA 0-0.8 K/UL ABS MONOCYTE 0.50 LAB AEOS 0-0.45 K/UL ABS EOS 0.11 LAB ABAS 0.00-0.22 K/UL ABS BASO 0.01 LAB WBC 4.5-11.0 K/UL WBC COUNT 5.8 LAB RBC 4.5-5.5 M/UL Low RBC COUNT 4.40 LAB HGB 13.5-16.5 GM/DL Low HEMOGLOBIN 12.4 LAB HCT 41-50 % Low HEMATOCRIT 40.2 LAB MCV 80-100 FL MCV 91.4 LAB MCH 26-34 PG MCH 28.2 LAB MCHC 31-37 % Low MCHC 30.8 LAB RDWS 37.0-54.0 FL RDW-SD 52.9 LAB RDWC 11.7-15.0 % RDW-CV High 15.8 LAB PLT 150-450 K/UL PLATELET 177 LAB MPV 7.0-12.6 CU MEAN PLT VOL 10.8 LAB NRBC 0 /100 WBC NRBC'S 0 LAB ANC ABS.NEUT.CALCULAT ED Result Comment: 4.47 Performed at [place] [id number] Performed By: #### CBCD #### Main Laboratory [address] [address] COMPREHENSIVE METABOLIC Collected: 04/21/2018 Status: F Source: [facility] PANEL 5:07 AM SYSTEM REPOSITORY TYPE CODE TESTS RESULT OUT OF REFERENCE UNITS RANGE LAB CA 8.5-10.4 MG/DL TOTAL CALCIUM 8.7 LAB AST 5-40 U/L AST 11 LAB ALKP 35-125 U/L ALK PHOSPHATASE 75 LAB TBIL 0.1-1.2 MG/DL BILIRUBIN,TOTAL 0.4 LAB TP 5.9-7.9 G/DL PROTEIN, TOTAL 6.8 LAB ALB 3.5-5.0 GM/DL Low ALBUMIN 3.2 LAB GLOB 1.9-3.7 G/DL GLOBULIN 3.6 LAB AGR 1.5-3.0 RATIO Low A/G RATIO 0.9 LAB NA 133-145 MMOL/L SODIUM 140 LAB K 3.4-5.1 MMOL/L POTASSIUM 4.5 LAB CL 97-107 MMOL/L CHLORIDE 99 LAB CO2 24-31 MMOL/L CARBON DIOXIDE 30 LAB ANGP 0-19 MMOL/L ANION GAP 11 LAB BUN 8-25 MG/DL UREA NITROGEN 24 LAB CRET 0.4-1.6 MG/DL CREATININE 1.0 LAB BUCR 8-21 RATIO BUN/CREAT. High RATIO 24.0 LAB GLU 65-99 MG/DL GLUCOSE High 175 LAB ALT 5-40 ALT Result Comment: 6 Performed at [address] [address] Performed By: #### CPMP #### [facility] [address] [address] ANKLE LT WO CONTRAST Observed: 04/20/2018 Status: F Source: [facility] 10:30 PM SYSTEM REPOSITORY *FINAL Date of Service: 04/20/2018 22:30 Adm #: [id number] Reading Dr:RICCI CLANCY Signoff Dr: RICCI CLANCY PROCEDURE: ANKLE LT WO CONTRAST - ICT [id number] REASON FOR EXAM: Charcot left ankle s/p fusion with external fixator RESULT: ANKLE LT WO CONTRAST: 04/20/2018 10:30 PM CLINICAL INDICATION: Status post subtalar joint fusion TECHNIQUE: Serial axial CT images obtained the left ankle with external fixator in place with streak artifact limiting characterization about the ankle PATIENT RADIATION EXPOSURE DATA: CTDI: 6.50 mGy DLP: 139 mGycm FINDINGS: Retrograde IM nail transfixing the subtalar and tibiotalar articulations with eburnation across the articulations and suggestion of bone graft placement across the subtalar joint. External fixator screw in the calcaneus as well as fixator screws in the visualized portions the distal tibial diaphysis. Screw tracks are also demonstrated. Tibiotalar articulation demonstrates eburnation and suggestion of bone graft placement. There is a lucency within the lateral talar dome extending centrally. Correlate with prior hardware in this location. Midfoot osseous structures demonstrate mild osteoarthritic degenerative change. 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 Forefoot is not included on this examination. IMPRESSION: 1. Limited examination given streak artifact throughout with tibiotalar and subtalar arthrodesis with retrograde IM nail placement. There is eburnation across the tibiotalar and subtalar joints with bone graft placement. 2. No evidence for acute osseous abnormality with lytic appearing lucency in the talus likely relation to remote hardware fixation and removal. This report has been produced using speech recognition. This exam is available in DICOM format to non-affiliated healthcare facilities on a secure media free searchable basis with prior patient authorization. The patient exposure is reported to a radiation dose index registry. All CT examinations are performed with one or more of the following dose reduction techniques: Automated Exposure Control, Adjustment of mA and/or KV according to patient size, or use of iterative reconstruction techniques. Original Interpreting Physician: RICCI CLANCY MD Original Transcribed by/Date: PSCB Apr 21 2018 11:59A Original Electronically Signed by/Date: RICCI CLANCY MD Apr 21 2018 11:59A Addendum Interpreting Physician: Addendum Transcribed by/Date: NO ADDENDUM Addendum Electronically Signed by/Date: POCT GLUCOSE Collected: 04/20/2018 Status: F Source: [facility] 10:09 PM SYSTEM REPOSITORY TYPE CODE TESTS RESULT OUT OF REFERENCE UNITS RANGE LAB PCGL 65-99 MG/DL High POCT GLUCOSE 169 Performed By: #### PCGL #### [facility] [id number] [place] [address] HEMOGLOBIN,HCT Collected: 04/20/2018 Status: F Source: [facility] 4:26 PM SYSTEM REPOSITORY TYPE CODE TESTS RESULT OUT OF REFERENCE UNITS RANGE LAB HGB 13.5-16.5 GM/DL Low HEMOGLOBIN 12.9 LAB HCT 41-50 HEMATOCRIT Result Comment: 42.3 Performed at [facility] [address] [place] [id number] Performed By: #### HH #### [address] , [place] [address] ANKLE LT 2 VIEW Observed: 04/20/2018 Status: F Source: [facility] 3:19 PM SYSTEM REPOSITORY *FINAL Date of Service: 04/20/2018 15:19 Adm #: [id number] Reading Dr:WANDER GLORIA Signoff Dr: WANDER GLORIA PROCEDURE: ANKLE LT 2 VIEW - IXR [id number] REASON FOR EXAM: REMOVAL OF HARDWARE LEFT ANKLE RESULT: Clinical Information: Hardware removal. Comparison: None. Fluoroscopy was provided four hardware removal. Total fluoroscopy time: 2 MIN 10 SECS, images: 6 SPOT, DAP: 12.51 MGY. There is external fixation hardware in the left ankle. The alignment is anatomic. Impression: Fluoroscopy for hardware removal. This report has been produced using speech recognition. Original Interpreting Physician: WANDER GLORIA M.D. Original Transcribed by/Date: PSCB Apr 20 2018 3:27P Original Electronically Signed by/Date: WANDER GLORIA M.D. Apr 20 2018 3:27P Addendum Interpreting Physician: Addendum Transcribed by/Date: NO ADDENDUM Addendum Electronically Signed by/Date: POCT GLUCOSE Collected: 04/20/2018 Status: F Source: [facility] 2:01 PM SYSTEM REPOSITORY TYPE CODE TESTS RESULT OUT OF REFERENCE UNITS RANGE LAB PCGL 65-99 MG/DL High POCT GLUCOSE 191 Performed By: #### PCGL #### [facility] [address] [place] [address] Observed: 04/20/2018 Status: F Source: [facility] TRIPOINT SURGICAL 1:28 PM SYSTEM REPOSITORY Patient Name: SHEREE MUNIZ MR#: [id number] Specimen #[id number] Source: 1: Left ankle joint 2: Left subtalar joint Gross Description 1. Received fresh are two flat to irregular shaped pieces of soft tissue and focal firm tissue measuring in aggregate 1.7 x 1.4 x 0.3 cm. The tissue is decalcified and submitted entirely in one cassette. 2. Received fresh are two flat to irregular shaped pieces of singleton-sanchez focally firm tissue measuring in aggregate 2.1 x 1.5 x 0.3 cm. The tissue is decalcified and submitted entirely in one cassette. Microscopic Description Slides examined; description omitted. Procedures/Addenda Final Diagnosis 1. LEFT ANKLE JOINT, BIOPSY: BONE AND CARTILAGE WITH INTERTRABECULAR FIBROSIS, DEGENERATIVE CHANGES AND GRANULATION TISSUE. 2. LEFT SUBTALAR JOINT, BIOPSY: BONE AND CARTILAGE WITH INTERTRABECULAR FIBROSIS, CHRONIC INFLAMMATION AND DEGENERATIVE CHANGES. Electronically Signed Out By Denise Goddard M.D. Performed By: #### [id number] #### [place] [id number] WOUND Observed: 04/20/2018 Status: F Source: [facility] CULTURE-TISSUE 10:41 AM SYSTEM REPOSITORY Specimen source XXX: TISSUE LEFT ANKLE JOINT Performed at [place] [address] Service nt XXX-Imp: NONE Performed at [address] [address] Microscopic observation: 1+ GRAM POSITIVE COCCI NO WBC SEEN Bacteria identified: 1+ COAGULASE NEGATIVE STAPHYLOCOCCI (MRSE) Performed at [address] [address] : FINAL 04/25/2018 ANTIBIOTIC ALEX[place]RI[place]/INTERP ORGANISM: 1 1+ COAGULASE NEGATIVE STAPHYLOCOCCI (MRSE) [place] TETRACYCLINE <=2 SUSCEPTIBLE TRIMETHOPRIM SULFAMETHOXAZOLE >2/38 RESISTANT VANCOMYCIN 1 SUSCEPTIBLE DAPTOMYCIN <=0.25 SUSCEPTIBLE Performed By: #### WNDT #### [address] [address] WOUND Observed: 04/20/2018 Status: F [facility]POSIT[facility] Specimen source XXX: TISSUE LEFT SUBTAYLER JOINT Performed at [address] [address] Service nt XXX-Imp: NONE Performed at [address] [address] Microscopic observation: 1+ GRAM POSITIVE COCCI 1+ WBC Bacteria identified: 2+ COAGULASE NEGATIVE STAPHYLOCOCCI (MRSE) Performed at [address] [address] : FINAL 04/25/2018 ANTIBIOTIC [place]/INTERP ORGANISM: 1 2+ COAGULASE NEGATIVE STAPHYLOCOCCI (MRSE) [place] TETRACYCLINE <=2 SUSCEPTIBLE TRIMETHOPRIM SULFAMETHOXAZOLE >2/38 RESISTANT VANCOMYCIN 1 SUSCEPTIBLE DAPTOMYCIN <=0.25 SUSCEPTIBLE Performed By: #### WNDT #### [address] [place] [address] POCT GLUCOSE Collected: 04/20/2018 Status: F Source: [facility] 7:39 AM SYSTEM REPOSITORY TYPE CODE TESTS RESULT OUT OF REFERENCE UNITS RANGE LAB PCGL 65-99 MG/DL High POCT GLUCOSE 154 Performed By: #### PCGL #### [place] [id number] CBC WITHOUT DIFF Collected: 04/17/2018 Status: F Source: [facility] 11:00 AM SYSTEM REPOSITORY TYPE CODE TESTS RESULT OUT OF REFERENCE UNITS RANGE LAB WBC 4.5-11.0 K/UL WBC COUNT 4.8 LAB RBC 4.5-5.5 M/UL RBC COUNT 4.92 LAB HGB 13.5-16.5 GM/DL HEMOGLOBIN 14.2 LAB HCT 41-50 % HEMATOCRIT 45.1 LAB MCV 80-100 FL MCV 91.7 LAB MCH 26-34 PG MCH 28.9 LAB MCHC 31-37 % MCHC 31.5 LAB RDWS 37.0-54.0 FL RDW-SD 52.3 LAB RDWC 11.7-15.0 % RDW-CV High 15.5 LAB PLT 150-450 K/UL PLATELET 192 LAB MPV 7.0-12.6 CU MEAN PLT VOL 10.7 LAB NRBC 0 NRBC'S Result Comment: 0 Performed at [place] [address] Performed By: #### CBCN #### Main Laboratory [place] [id number] COMPREHENSIVE METABOLIC Collected: 04/17/2018 Status: F Source: [facility] PANEL 11:00 AM SYSTEM REPOSITORY TYPE CODE TESTS RESULT OUT OF REFERENCE UNITS RANGE LAB CA 8.5-10.4 MG/DL TOTAL CALCIUM 9.1 LAB AST 5-40 U/L AST 13 LAB ALKP 35-125 U/L ALK PHOSPHATASE 83 LAB TBIL 0.1-1.2 MG/DL BILIRUBIN,TOTAL 0.5 LAB TP 5.9-7.9 G/DL PROTEIN, TOTAL 7.6 LAB ALB 3.5-5.0 GM/DL ALBUMIN 3.6 LAB GLOB 1.9-3.7 G/DL GLOBULIN High 4.0 LAB AGR 1.5-3.0 RATIO Low A/G RATIO 0.9 LAB NA 133-145 MMOL/L SODIUM 141 LAB K 3.4-5.1 MMOL/L POTASSIUM 5.0 LAB CL 97-107 MMOL/L CHLORIDE 101 LAB CO2 24-31 MMOL/L CARBON High DIOXIDE 32 LAB ANGP 0-19 MMOL/L ANION GAP 8 LAB BUN 8-25 MG/DL UREA High NITROGEN 26 LAB CRET 0.4-1.6 MG/DL CREATININE 0.9 LAB BUCR 8-21 RATIO BUN/CREAT. High RATIO 28.9 LAB GLU 65-99 MG/DL GLUCOSE High 143 LAB ALT 5-40 U/L ALT 8 LAB EGFR ESTIMATED GFR Result Comment: 90 GFR ml/min/1.73m2 Stage ----- 90 1 60-89 2 30-59 3 15-29 4 <15 5 For -Americans, multiply EGFR result by 1.210 Calculation not validated for patients under 18 years of age. Performed at [address] [address] Performed By: #### CPMP #### Main Laboratory [address] [address] EXTREMITY LOWER Observed: 08/07/2017 Status: F Source: [place] WITHOUT CONTRA 1:19 PM [facility] REPOSITORY [facility] Imaging Services [address] [place] [address] Extremity Lower without Contra MR#: [id number] Acct: [id number] Name: SHEREE MUNIZ Rep #: [id number] : 1955 M 62 From: Markell Osman MD PCP: DAWSON OLSEN Status: REG CLI Study: Extremity Lower without Contra Date of Exam: 08/07/17 Exam# [id number] Ordering Dr: Aubrie Valdez DPJacquelin STUDY: CT LEFT ANKLE WITHOUT CONTRAST REASON FOR EXAM: Male, 62 years old. Prior surgeries of the left ankle and nonunion. RADIATION DOSAGE (If Supplied By Facility): CTDIvol = ( 15.35 ) mGy, DLP = ( 412.55 ) mGycm TECHNIQUE: Thin section transaxial imaging of the ankle was obtained, with sagittal and coronal reconstructed images. Individualized dose optimization techniques were used for this CT. COMPARISON: Comparison is made with prior examination dated March 30, 2017. FINDINGS: The external fixator device has been removed. Once again, there is evidence of prior fusion of the distal tibia with the calcaneus and the talus with multiple screws and sideplate fixation device. There is also evidence of a anterior screw fixation of the distal tibia to the talus. The joint space between the distal tibia and talus is still present. There is also presence of the joint space between the posterior talus and calcaneus. There is evidence of osteopenia of the visualized bones. Diffuse persistent soft tissue swelling. CT/Extremity Lower without Contra IMPRESSION: Prior fixation as described. The joint spaces are still visible. Diffuse osteopenia and soft tissue swelling. Electronically Signed: Markell Osman MD at 9:25 EST Tel [phone], Service support , CC: DAWSON Valdez DPM Dehydrating Press Operator: Signed ALLERGIES ALLERGIES DATE TYPE / CODE NAME / CODE REACTION SEVERITY SOURCE 01/18/2017 Drug No Known Unknown [facility] Allergy/4160 Allergies/F00 Hospital 37190(SNOMED [id number](RXNOR Repository CT) M) ENCOUNTERS ENCOUNTERS ADMIT/DISCHARGE ACCOUNT NUMBER ADMITTING ENCOUNTER LOCATION SOURCE CLASS 07/09/2018 [id number] Ambulatory [facility] ding:CT Repository 06/21/2018/06/21/19 [id number] Emergency ABuilding:LUIS Maradiaga [facility] Repository 06/18/2018 [id number] Ambulatory [facility] ding:MTLAB Repository 05/25/2018/05/30/20 [id number] ANAIS CHILEL., Inpatient ABuilding:ME Ashwini Gillespie MD. LULU W Encounter 4SRoom: [place] [address]Bed: [facility] Repository 05/25/2018/05/25/20 [id number] Emergency BBuilding:ER Ashw[address] Repository 04/20/2018/04/20/20 [id number] Ambulatory [place] [address] ing:IST TP System SURG TELE Repository ERoom: [id number] 04/17/2018 [id number] Ambulatory [facility] Repository 03/23/2018/03/23/20 [id number] Ambulatory [address] ding:RAD [facility] Repository 08/07/2017 [id number] [facility] PAYERS PAYERS ENCOUNTER GUARANTOR PAYER SUBSCRIBER SOURCE 07/09/2018 SHEREE E Primary Insurance:[facility] SHEREE E [place] [id number] [facility] Number: [id number] [place] [id number] Repository [address]Umy: 330) Date:2018-07-05 [phone] () 07/09/2018 Secondary NOT GIVENUNK [place] Insurance:SELF PAY [facility] Number: Effective Repository Date:2018-07-05 06/21/2018 [facility]EREE E [facility] [id number] N INSCOPolicy Number: [id number] [facility] Effective [address] [place], [place] Date:2018-06-21 [place], [place] [address]Kro: [phone] Name:[phone]: () [phone] () () 06/18/2018 SHEREE E Primary NOT GIVENUNK [place] [id number] [address] Insurance:SELF PAY [place], [place] Number: Effective Repository [address]Rnb: 330) Date:2018-06-18 [phone] () 05/25/2018 SHEREE E [facility] Insurance:SELF PAY [facility] [id number] N INSCOPolicy Number: [id number] Repository [facility] Effective N [facility] [address], [place] Date:2018-05-25 [place], [place] [address]Ixm: [phone] Name:[id number]: (HP) [phone] (HP) (WP) 05/25/2018 [facility]:SELF PAY STEINERDOB: Foundation N INSCOPolicy Number: [id number] Repository [facility] Effective N [facility] [place], [place] Date:2018-05-[address], [place] [address]Omq: [phone] Name:Adilson [phone]: (HP) [phone] (HP) (WP) 04/20/2018 [facility] Insurance:SELF STEINERDOB: System PAYPolicy Number: [id number] Repository [facility] Effective Date:[facility] Name[facility] [id number]: [address] [place], [place] [address]Bot: [phone]: (HP) [phone] (HP) 04/17/2018 [facility] Insurance:SELF STEINERDOB: System PAYPolicy Number: [id number] Repository [facility] Effective Date:[facility] Name:[facility] [id number]: [address] [place], [place] [address]Mqv: [id number]: (HP) [phone] (HP) 03/23/2018 [facility] STEINERDOB: Insurance:SELF STEINDOB: [facility] [id number] N PAYPolic Number: [id number] Repository [facility] Effective [address] [place], [place] Date:2018-03-20 [place], [place] [address]Bru: [phone] Name:[id number]: (HP) [phone] (HP) () 08/07/2017 Sheree Primary Insurance:[facility] Sheree [place] [id number] N[address] PACKAGE PLANFranklin [facility] Memorial HospitalB[facility] Number: Effective [id number] Date:2017-07-27 Repository [id number]: () 08/07/2017 [facility] [place] Insurance:SELF PAY [facility] Number: Effective Repository Date:2017-07-27
== END ==
PROVIDERS: Family Provider Family Medicine; PCP Family Medicine; Referring Provider Podiatrist; Visit Provider Podiatrist
DX: M96.0 Pseudarthrosis after fusion or arthrodesis (principal)
CPT/HCPCS: 73700

== ENCOUNTER → 2018-07-16 14:02 | Outpatient (CLI) | payer SELFPAY ==
[2017-03-31 14:56] VITALS: BMI 55.4
[2018-07-16 15:53] LABS: ALB/GLOB Ratio 0.5 RATIO (0.9-2.4); AST(SGOT) 12 U/L (15-37); Alanine Aminotransfer ALT/SGPT 12 U/L (16-61); Albumin, Serum 2.7 g/dL (3.2-5.0); Alkaline Phosphatase 94 U/L (45-117); Anion Gap 4 (5-15); BUN 30 mg/dL (7-18); Calcium,Total 8.7 mg/dL (8.5-10.1); Chloride 100 mmol/L (98-107); Creatinine, Serum 1.07 mg/dL (0.70-1.30); EST Glomerular Filtration Rate 74 mL/min (>60); Est Glom Filt Rate - Afr Amer 89 mL/min (>60); Globulin 5.2 g/dL (2.2-4.2); Glucose 89 mg/dL (74-106); Potassium 4.7 mmol/L (3.5-5.1); Protein, Total 7.9 g/dL (6.4-8.2); Sodium Level 143 mmol/L (136-145)
[2018-07-16 15:56] LABS: Absolute Lymphocyte Count 0.85 X10^3/ul (0.83-4.51); Absolute Neutrophil Count 2.9 X10^3/uL (2.0-7.7); Basophil# 0.01 X10^3/uL; Basophil% 0.2 % (0-1); Eosinophil# 0.09 X10^3/uL; Eosinophils% 2.1 % (0-5); Hematocrit 43.1 % (40-54); Hemoglobin 11.4 g/dl (13.0-16.5); Lymphocyte # 0.85 X10^3/ul (4.0); Lymphocyte % 20.3 % (19-41); Mean Corp Hgb Conc 26.5 g/gl (32-36); Mean Corpuscular Hgb 23.4 pg (27.0-32.0); Mean Corpuscular Volume 88.5 fL (80-94); Mean Platelet Vol. 9.9 fl (6.2-12.0); Monocyte# 0.32 X10^3/uL; Monocyte% 7.6 % (0-10); Neutrophil # 2.91 X10^3/uL (2.7-7.7); Neutrophil % 69.6 % (47-70); Platelet Count 312 K/mm3 (150-450); RBC Distribution Width CV 18.1 % (11.6-14.6); RBC Distribution Width SD 58.2 fl (35.1-43.9); Red Blood Count 4.87 M/mm3 (4.6-6.2); White Blood Count 4.2 K/mm3 (4.4-11.0)
[2018-07-16 16:13] LABS: POSITIVE COUNT NO; POSITIVE DIFFERENTIAL NO; POSITIVE MORPHOLOGY NO
== END ==
PROVIDERS: Family Provider Family Medicine; PCP Family Medicine; Referring Provider Family Medicine; Visit Provider Family Medicine
DX: Z01.818 Encounter for other preprocedural examination (principal)
CPT/HCPCS: 36415; 80053; 85025

== ENCOUNTER 2018-07-24 21:52 | Observation (INO) | payer SELFPAY ==
[2017-03-31 14:56] VITALS: BMI 55.4
[2018-07-24] VITALS (19 sets, daily range): BP systolic 91–188; BP diastolic 45–76; PULSE 49–88; RESP 12–26; TEMP 35.8–36.8; O2SAT 40–96; BMI 55.4
[2018-07-24 12:41] LABS: Bedside Glucose 124 mg/dL (70-110)
[2018-07-24 12:50] LABS: International Normalized Ratio 1.1; Prothrombin Time (Protime)PT. 14.4 SECONDS (11.7-14.9)
[2018-07-24 12:56] LABS: AST(SGOT) 10 U/L (15-37); Alanine Aminotransfer ALT/SGPT 9 U/L (16-61); Albumin, Serum 2.7 g/dL (3.2-5.0); Alkaline Phosphatase 85 U/L (45-117); Bilirubin, Direct 0.23 mg/dL (0.00-0.30); Globulin 5.3 g/dL (2.2-4.2)
[2018-07-24 12:57] LABS: Hemoglobin A1c 8.5 % (4.2-6.3)
[2018-07-24 13:02] LABS: Vitamin D,25 Hydroxy 32.2 ng/mL (29.95-100.01)
--- NOTE | 2018-07-24 14:00 | BON_PTH ---
PATIENT: SHEREE MUNIZ LOC: [facility] U#:[id number] AGE/SX: 63/M ROOM: [facility] RE07/24/[address]: Dr. Aime aNth DO : 1955 BED: 1 DIS: 07/25/2018 SPEC #: [id number] RECD: 07/25/18 09:14 STATUS: LOGAN REQ #: [id number] PETER: 07/24/18 14:[address]: Aubrie Valdez DEPT: SURGICAL PATHOLOGY RECD BY: Javier Cheung ENTERED: 07/25/18 11:14 SP TYPE: Bone OTHR DR: DO Dr. Aime Mclaughlin DO Dr. Joseph Agyepong, MD Dr. Jeanna Fascione, DPM Tissues: A - Bone of ankle, NOS B - Bone of ankle, NOS Procedures: Decalcification bone/plaque Surgery Specimen Level IV Comments: @ Ordering doctor for DEC edited from to DR.JFASCI Polina RUSSELL at 07/26/18814 @ Ordering doctor for SUIII edited from to @ min RUSSELL at 07/26/18 0815 @ Submitting doctor edited from to DR.JFASCI Polina RUSSELL at 07/26/18 0815 HEADER OPERATION: Lower extremity debridement nonunion arthrodesis PRE-OP DIAGNOSIS: Nonunion ankle arthrodesis, ankle instability TISSUE SUBMITTED: A - Left ankle bone, B - Subtalar joint left MICROSCOPIC DIAGNOSIS A. Bone of left ankle, biopsy: Focal osteonecrosis. Reactive and reparative change. No evidence of acute osteomyelitis. See comment. B. Left subtalar joint, bone biopsy: Fragments of bone with reactive and reparative change. No evidence of acute osteomyelitis. AM:keely 07/30/18 COMMENT A. 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 Clinical correlation is suggested. MICROSCOPIC DESCRIPTION Slides are reviewed. GROSS DESCRIPTION A - Received in fixative is one container labeled with the patient's name and designated ankle bone left. The specimen consists of multiple pieces of bone that in aggregate measure 2 x 2 x 0.3 cm. The entire specimen is submitted in one cassette after decalcification. B - Received in fixative is one container labeled with the patient's name and designated subtalar joint left. The specimen consists of a piece of bone measuring 1 x 0.5 x 0.3 cm. The entire specimen is submitted in one cassette after decalcification. / [place]:keely 07/25/18 TC:5 CPT: 66720 x2, 65037 x2
--- NOTE | 2018-07-24 14:55 | RAD_ITS ---
HISTORY: ADJUSTMENT EXTERNAL FIXATION, AUGMENT GRAFT, DEBRIEDMENT EXAM/TECHNIQUE: XR Ankle Min 3 Views: Fluoroscopic intraoperative images of the right ankle and tib-fib. COMPARISON: None. FINDINGS: # of images incl. paperwork: 22 Fluoroscopic intraoperative images of the right ankle and tib-fib. External fixation hardware is noted. Marked arthritis of the ankle mortise, not well evaluated. Status post resection of the distal tibia. RAD/Ankle min 3 Views IMPRESSION: Fluoroscopic intraoperative images of the right ankle and tib-fib. at 0054 Reported and signed by: Ethan Sam MD Electronically Signed: Ethan Sam, at 0:53 EST Tel , Service support ,
[2018-07-24] MEDS: Lubricating Jelly 60 GM Tube 30 GM TOPICAL (16:00)
[2018-07-24] MEDS: Calcium Chloride 1 GM/10 ML Syringe (16:25)
[2018-07-24] MEDS: Heparin 10,000 UNITS/10 ML Vial 10000 UNITS (16:25)
[2018-07-24 19:21] LABS: Bedside Glucose 178 mg/dL (70-110)
--- NOTE | 2018-07-24 19:22 | EKG12_ITS ---
Test Reason : EKG CHANGES Blood Pressure : / mmHG Vent. Rate : 067 BPM Atrial Rate : 067 BPM P-R Int : 218 ms QRS Dur : 126 ms QT Int : 436 ms P-R-T Axes : 011 -40 008 degrees QTc Int : 460 ms Sinus rhythm with 1st degree A-V block Left axis deviation Left ventricular hypertrophy with QRS widening Abnormal ECG When compared with ECG of 24-JUL-2018 12:30, MANUAL COMPARISON REQUIRED, DATA IS UNCONFIRMED Confirmed by RINA CHILEL, NERI ([id number]), proposal editor CHRISTIN WATSON ([id number]) on 07/30/2018 11:30:14 AM Referred By: Aubrie Valdez Confirmed By:NERI FLYNN MD
--- NOTE | 2018-07-24 19:32 | OP.PN_ITS ---
Problem List (1) Pseudarthrosis after fusion or arthrodesis Status: Chronic (2) Arthrodesis status Status: Chronic (3) Instability of left ankle joint Status: Chronic Immediate Post-Op Note Date of Procedure: 07/24/18 - Surgeon: Aubrie Valdez DPM. Backhoe Operator: Lisandro Kaplan PGY2 Primary Surgeon/Physician: Aubrie Valdez DPM technician test systems: none Pre-Operative Diagnosis: non union left ankle arthrodesis site. non union left subtalar joint arthrodesis site. chronic ankle instability. rule out osteomyelitis Post-Operative Diagnosis: non union left ankle arthrodesis site. non union left subtalar joint arthrodesis site. chronic ankle instability. rule out osteomyelitis Surgery/Procedure Performed:: 1. right tibia bone marrow aspirate harvest. 2. percutaneous debridement and bone biopsy of left ankle; application of augment regenerative solution and bone marrow aspirate. 3. percutaneous debridement and bone biopsy of left subtalar joint: application of augment regenerative solution and bone marrow aspirate. 4. adjustment of external fixation device, left lower extremity. 5. debridement of left lateral ankle wound with primary closure. Description of Surgical Findings:: Hemostasis controlled; no tourniquet utilized Estimated blood loss <100 mL Materials: 2-0 Vicryl and 2-0 nylon, augment regenerative solution 3.5 cc, bone marrow aspirate harvested from the right lower extremity Complications: None The patient tolerated the procedure and anesthesia well. He was transported to the PACU with vital signs stable and vascular status intact to left lower extremity. He will be admitted for observation overnight and this case was discussed with the hospitalist. His orders were entered electronically. I will continue to follow him closely while in house. Estimated Blood Loss: <200 mL Specimen's removed: Left ankle joint non union arthrodesis site bone biopsy sent to pathology and microbiology (aerobic, anaerobic, acid-fast, fungal). Left subtalar joint non union arthrodesis site bone biopsy sent to pathology and microbiology (aerobic, anaerobic, acid-fast, fungal) Drains: none Type of Anesthesia:: Local MAC - Intraoperative: Right leg 3 cc of lidocaine with epinephrine, left leg 3 cc of lidocaine with epinephrine administered infiltrative to incision sites -A left lower extremity regional block will be offered to him if his pain is not controlled in the postoperative setting - Admit VTE Documentation VTE Present on Admission: Yes - h/o recent pulmonary embolism treated with xarelto VTE Mechan Device Prophylaxis: SCD's - Will resume SCD to the right lower extremity in 1-2 days if his right leg bone marrow aspirate site is nontender VTE Pharm Prophylaxis ordered?: Yes
--- NOTE | 2018-07-24 19:56 | HP.PCM_ITS ---
Problem List (1) Pseudarthrosis after fusion or arthrodesis Status: Chronic (2) Arthrodesis status Status: Chronic (3) Instability of left ankle joint Status: Chronic History of Present Illness Date of Admission: 07/24/18 Chief Complaint: Postoperative bilateral lower extremities The patient is a 63 year old M with multiple comorbidities underwent debridement and bone biopsy of nonunion left ankle and subtalar joints. These were further augmented with augmented regenerative injection as well as bone marrow aspirate (harvested from contralateral right leg). The external fixation device was additionally adjusted to allow for further compression and his ulcer was debrided and primarily repaired. He has a long-standing history of left ankle instability with reconstructive surgeries. Most recently he had this external fixation device placed on 04/20/2018. Recent CT scan demonstrated maintained good alignment however there was no osseous bridging noted. Therefore the surgery was planned to rule out infection and also to use Biologics to promote healing at the sites. He does have neuropathy and his pain is controlled. He does struggle with keeping weight and pressure off of this site. He has assistive devices at home. He denies other recent injuries. He is recovering at this time in the PACU and is still sedated. Past Medical History Past Medical History (Chronic Problems): Chronic Problems (Last Reviewed 07/24/18 @ 22:47 by Rachid Santana MD) Venous insufficiency of both lower extremities (Chronic) Other specified peripheral vascular diseases (Chronic) Ankle ligament laxity (Chronic) Dislocation of ankle, left, closed (Chronic) Hardware failure (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) Hardware failure (Chronic) Diabetes mellitus, type II (Chronic) HTN (hypertension) (Chronic) HLD (hyperlipidemia) (Chronic) Dilated cardiomyopathy (Chronic) Aortic valve disease (Chronic) ANDRADE (obstructive sleep apnea) (Chronic) Chronic respiratory failure with hypoxia and hypercapnia (Chronic) Super obesity (Chronic) Diastolic dysfunction (Chronic) Obesity hypoventilation syndrome (Chronic) Vitamin D deficiency (Chronic) Thrombocytopenia (Chronic) Anemia (Chronic) Sleep walking (Chronic) Ulcer of left lower extremity with fat layer exposed (Chronic) Lymphedema (Chronic) Pseudarthrosis after fusion or arthrodesis (Chronic) Arthrodesis status (Chronic) Instability of left ankle joint (Chronic) Medical History: Medical History (Last Updated 07/24/18 @ 19:56 by Aubrie Valdez DPM) Aortic valve disease I35.9 Congestive heart failure I50.9 Hyperlipidemia E78.5 Lymphedema I89.0 Pulmonary embolism I26.99 Sleep apnea G47.30 Super obesity E66.9 Venous insufficiency of both lower extremities I87.2 Vitamin D deficiency E55.9 Walking difficulty due to ankle and foot R26.2 Wound healing, delayed T14.8XXD Allergies No Known Allergies Allergy (Verified 07/18/18 08:19) Home Medications: Ambulatory Orders Medication Instructions Recorded Aspirin 325 mg PO DAILY@0800 01/18/17 Carvedilol [Coreg (Beta Ez)] 25 mg PO BID 01/18/17 Furosemide 40 - 60 mg PO DAILY 01/18/17 Insulin NPH Hum/Reg Insulin Hm 10 unit SQ BREAKFAST 01/18/17 [Humulin 70-30 Vial] hydrALAZINE [Apresoline] 25 mg PO BID 01/18/17 Rivaroxaban [Xarelto] 15 mg PO QHS 07/18/18 glipiZIDE [Glucotrol] 5 mg PO BID 07/18/18 Surgical History: - - His recent surgeries on the left ankle in both December, May and today as noted. Additional surgeries include tonsillectomy, appendectomy, left inguinal surgery repair. Psychiatric History: No pertinent psych hx Lives: Spouse/ Significant Other, With Family Smoking Status: Never smoker Tobacco Use: Non-smoker Alcohol: None Drugs: None - *Family History Maternal History Items: Cancer, Heart Disease - Mother w/ CHF Hx. Paternal History Items: Heart Disease - CAD, s/p CABG in his 60s. Review of Systems Constitutional: Denies: Chills, Fever, Weakness Cardiovascular: Reports: Orthopnea. Denies: Chest Pain, Claudication Respiratory: Denies: Shortness of Breath Gastrointestinal: Denies: Constipation, Diarrhea, Nausea, Vomiting Musculoskeletal: Denies: Joint Tenderness, Leg Pain Skin: Reports: Skin Changes, Wounds Neurological: Reports: Balance problems, Incoordination, Numbness, Tingling Psychiatric: Denies: Anxiety Hematologic/ Lymphatic: Reports: Hx of blood clot - pulmonary embolism Comment: ROS performed preop VTE Information - Inpt Only VTE Present on Admission: Yes - on current xarelto 20 mg QD treatment VTE Pharm Prophylaxis ordered?: Yes Patient Problems: Active and Suspected Problems (Last Reviewed 07/24/18 @ 22:47 by Rachid Santana MD) Acute encephalopathy (Acute) Acute respiratory failure with hypoxemia (Acute) Acute hypercapnic respiratory failure (Acute) - Physical Exam General: Alert, Oriented x3 - preoperative assessment, Cooperative HEENT: Atraumatic, EOMI Oral: Moist Mucosa Neck: Supple Abdomen: Soft, Non Tender, Obese Extremities: No clubbing, Capillary Refill Less than 3 Seconds, No Calf Tenderness, Diminished Peripheral Pulses, Edema, - - Rectus left ankle with external fixation device in place Skin: Ulcer/ Wound, Incision, - - Postoperative dressings to bilateral lower extremities are clean and intact without strikethrough Musculoskeletal: No Tenderness to Palpation of Joints or Extremities Neurological: - - Lack of normal epicritic sensation light touch consistent with neuropathy Psych/Mental Status: Normal Affect, Appropriate Vital Signs Temp Pulse Resp BP Pulse Ox 96.8 F L 70 16 158/73 H 91 07/24/18 19:13 07/24/18 19:15 07/24/18 19:15 07/24/18 19:15 07/24/18 19:15 Oxygen Flow Rate (L/min) 10 Oxygen Delivery Method Simple Mask Weight: 175.2 kg Body Mass Index (BMI) 55.4 Finger Stick Blood Glucose 111 Laboratory Tests Past 24 Hrs 07/24/18 07/24/18 07/24/18 12:20 12:20 12:20 PT 14.4 INR 1.1 APTT 33.0 Hemoglobin A1c 8.5 H Total Bilirubin 0.80 Direct Bilirubin 0.23 AST 10 L ALT 9 L Alkaline Phosphatase 85 Total Protein 8.0 Albumin 2.7 L Globulin 5.3 H Vitamin D 25-Hydroxy 07/24/18 12:20 PT INR APTT Hemoglobin A1c Total Bilirubin Direct Bilirubin AST ALT Alkaline Phosphatase Total Protein Albumin Globulin Vitamin D 25-Hydroxy 32.2 POC Glucose 07/24/18 07/24/18 19:15 12:26 POC Glucose 178 H 124 H Assessment/Plan All Active Problems (Last Reviewed 07/24/18 @ 22:47 by Rachid Santana MD) Cellulitis of left leg (Acute) Acute encephalopathy (Acute) Acute respiratory failure with hypoxemia (Acute) Acute hypercapnic respiratory failure (Acute) Cellulitis of left ankle (Resolved) Chronic ulcer of left foot with fat layer exposed (Resolved) Ulcer of left lower extremity with fat layer exposed (Resolved) s/p debridement and bone biopsy of nonunion left ankle and subtalar joint arthrodesis site with Augment regenerative injection and bone marrow aspirate (harvested from contralateral right leg) s/p external fixation device adjustment s/p ulcer was debridement and primary repair Uncontrolled diabetes with neuropathy, last hemoglobin A1c 8.5% Walking difficulty Recent history of pulmonary embolism Other comorbidities as noted He was admitted postoperatively for observation status for pain control as well as medical management in the postoperative setting. I recommend ice and elevation for pain and inflammation management. Postoperative medications for pain were also ordered electronically. Strict nonweightbearing is recommended to left lower extremity. It is also noted that he did have bone marrow aspirate harvested from the right lower extremity and I recommend holding off on the SCDs for the first day or so. I recommend physical therapy work with him to ensure strict nonweightbearing. He will likely be able to resume his anticoagulation medication tomorrow. I recommend continue vitamin D supplementation and proper nutrition to optimize healing. Once he is medically stable and considered stable tomorrow it is okay to discharge from a surgical standpoint. Additional gradual deformity correction with compression to the hexapod external fixation device will be pursued in the outpatient setting. This case was discussed with the hospitalist and medical management is greatly appreciated. He is still being monitored in the PACU at this time prior to transfer to the medical surgical floor. Consideration for transfer to a different unit will be considered pending his post anesthesia / surgical recovery. Please do not hesitate to call if you have any additional questions. Aubrie Valdez DPM, [facility] [phone]
--- NOTE | 2018-07-24 20:05 | OP.PCM_ITS ---
Problem List (1) Pseudarthrosis after fusion or arthrodesis Status: Chronic (2) Arthrodesis status Status: Chronic (3) Instability of left ankle joint Status: Chronic Report of Operation Date of Procedure: 07/24/18 - Surgeon: Aubrie Valdez DPM. [employer] Supervisor: Lisandro Kaplan PGY2 Pre-Operative Diagnosis: non union left ankle arthrodesis site. non union left subtalar joint arthrodesis site. chronic ankle instability. rule out osteomyelitis Post-Operative Diagnosis: non union left ankle arthrodesis site. non union left subtalar joint arthrodesis site. chronic ankle instability. rule out osteomyelitis Surgery/Procedure Performed:: 1. right tibia bone marrow aspirate harvest. 2. percutaneous debridement and bone biopsy of left ankle; application of augment regenerative solution and bone marrow aspirate. 3. percutaneous debridement and bone biopsy of left subtalar joint: application of augment regenerative solution and bone marrow aspirate. 4. adjustment of external fixation device, left lower extremity. 5. debridement of left lateral ankle wound with primary closure. Description of Surgical Findings:: Hemostasis controlled; no tourniquet utilized and anatomic dissection was performed Materials: 2-0 Vicryl and 2-0 nylon, augment regenerative solution 3.5 cc, bone marrow aspirate harvested from the right lower extremity Complications: None leather leveler: none Type of Anesthesia:: Local MAC - Intraoperative: Right leg 3 cc of lidocaine with epinephrine, left leg 3 cc of lidocaine with epinephrine administered infiltrative to incision sites -A left lower extremity regional block will be offered to him if his pain is not controlled in the postoperative setting Specimen's removed: Left ankle joint non union arthrodesis site bone biopsy sent to pathology and microbiology (aerobic, anaerobic, acid-fast, fungal). Left subtalar joint non union arthrodesis site bone biopsy sent to pathology and microbiology (aerobic, anaerobic, acid-fast, fungal) Drains: none Estimated Blood Loss (mL): <200 mL Description of Procedure: Indications: This 63 year old M with multiple comorbidities including hyperlipidemia, super o besity, diabetes with neuropathy (hemoglobin A1c of 8.5%), sleep apnea on CPAP, history of pulmonary edema, venous insufficiency, lymphedema, cardiomyopathy, vitamin D deficiency, and history of wound healing problems presented for revision surgery this afternoon. He has a long-standing history of left ankle instability with reconstructive surgeries. Most recently he had this external fixation device placed on 04/20/2018. Recent CT scan demonstrated maintained good alignment however there was no osseous bridging noted. Therefore the surgery was planned to rule out infection and also to use Biologics to promote healing at the sites. The preoperative indications, planned procedure, possible benefits, risks, complications, and anticipated healing time management were discussed in detail with the patient. He understands and elects to proceed with surgery at this time. No guarantees were made. He understands complications and risks and include but are not limited to the following: Infection, swelling, scarring, pain, hardware failure, over under correction, continued delayed healing, allergic reaction, continued blood clot formation, loss of limb, function, life, chronic pain syndrome, and need for further surgery. Answered all his questions. His preoperative history and physical and clearance were reviewed. It is noted he was not cleared for general anesthesia and has had prior complications with anesthesia. His preoperative diagnostic data including EKG and labs were also reviewed. Procedure in detail: The patient was transferred to the operating room via cart and placed on the operating table in supine position. Final verification of the patient, surgery, and limb designation was performed via the timeout procedure. MAC anesthesia was initiated by the anesthesia team. Bilateral lower extremities were prepped and draped in the usual aseptic manner. Local anesthetic was administered to the right tibia bone marrow aspirate site and also to the incision / surgical entry sites to the left lower extremity. The sites were tested with a pickup to ensure adequate anesthesia was achieved. Attention was first directed to the right proximal leg as a following: A 1 cm linear incision was made just medial to the tibial tuberosity through the skin. Blunt dissection was performed down to the tibia in which a bone marrow aspirate trocar was entered. Care was taken at this point and throughout the remainder of the surgery to identify, protect, and retract all neurovascular structures. Approximately 45 cc of bone marrow aspirate was extracted and further processed according to standard arteriocyte protocol. This was set aside later for application to the revisional arthrodesis sites as concentrated BMAC and further PPP for wound application. This small wound was copiously irrigated with normal saline and the skin was reapproximated with 3-0 nylon. An overlying compressive dressing was applied. Attention was next directed to the left lower extremity in which a Doppler was used to check the planned incision sites were free of the dorsalis pedis or perforating peroneal artery branches. A 2 cm linear incision was made to the anterior medial aspect of the ankle, anterior lateral aspect of the ankle, and lateral posterior subtalar joint arthrodesis sites through the skin respectively. Blunt dissection was performed down to the capsular layer and the capsule was entered. The Orestes needle biopsy trocar was entered to the arthrodesis site and samples were obtained under fluoroscopy guidance from all the aforementioned sites. This was sent as a bone biopsy to both pathology and microbiology separately for the ankle and subtalar joints. It is noted all incision sites for each bone biopsy was not through a previous wound site. Utilizing the same incisional entry, a Steinmann pin and this trocar was utilized to debride the nonunion site of the ankle and the subtalar joint arthrodesis sites to healthy bleeding bone under radiographic guidance. After the bone biopsies were collected, 3 g of Ancef was administered. Augment reparative injection was next prepared according to standard protocol and 4.5 cc was administered to the 3 sites in a rationed manner. Next the BMAC was administered to these 3 sites as well in a rational manner. Proper application and trajectory was confirmed with live intraoperative fluoroscopy. Care was taken not to irrigate the biologic agents from the wound bed and to also allow gravity to infiltrate this into the prepared nonunion arthrodesis sites. Deep closure was achieved with Vicryl and the skin was next reapproximated utilizing a vertical and simple retention suture technique. Next, attention was focused to struts 2 and 3. The acute and gradual settings were changed and the struts were reapplied to the external fixation device. A measurements were predetermined with the use of [employer] calculation program. All nuts and bolts were further tightened and note to be stable. The temporary support foot plate to distal tibia ring rods were removed. Intraoperative fluoroscopy was used to confirm unchanged ankle rectus arthrodesis and subtalar joint positions. Further compression will be performed over the next week in outpatient setting. Next, the ulcer site to the lateral incision was debrided in a subcutaneous manner utilizing a curette and a 15 blade. The pre- debridement measurements were distal aspect 2.8 x 0.3 x 2.0 cm and more proximal aspect 2.2 x 0.3 x 2.2 cm. The respective post debridement measurements were distal 3.1 x 0.5 x 2.4 cm in the more proximal aspect wound was 2.4 x 0.5 x 2.5 cm. Copious irrigation was performed with normal saline, and primary repair was performed with the 2-0 nylon. The skin and all pin sites were cleaned and scrubbed with peroxide and saline. Aquacel Ag soaked with the remaining biologic agent was applied to all the incision sites. Xeroform was applied to the pin sites and additional gauze abdominal pad and Kerlix were applied. A compressive Alfonso wrap dressing was applied to the leg and also to cover the external fixation device. Brisk capillary refill time to all digits of the bilateral feet are noted and no pulsatile bleeding was appreciated. The left ankle remains in a clinical and radiographic rectus position. After procedure: The patient tolerated the procedure well and was transported to the PACU with vital signs stable (pulse 70, BP 109/71, O2 93 on mask) and vascular status intact to left and right lower extremities. He was advised to keep his dressings clean dry and intact. To maintain a strict nonweightbearing status. Physical therapy was recommended for tomorrow to confirm he is able to do so. He will perform further gradual deformity correction with additional external fixation compression in the outpatient setting. I reviewed the case with the admitting hospitalist in which medical management is greatly appreciated. He was advised to resume his Xarelto tomorrow. All of his postoperative orders were entered electronically. Formal postoperative x-rays will further be obtained. While in PACU it is noted he did desaturate and he will be transferred to the progressive care unit instead of the medical surgical floor for further management. Aubrie Valdez DPM, [facility]
--- NOTE | 2018-07-24 22:03 | HP.PCM_ITS ---
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 His blood pressure was noted to drop to the 90s after surgery although before surgery his blood pressure was 188/75. Dr. Vivian Ni DPM did his surgery. At the time of examination patient could open his eye spontaneously. He thought he was getting ready for surgery. Past Medical History Past Medical History (Chronic Problems): Chronic Problems (Last Reviewed 07/24/18 @ 22:47 by Rachid Santana MD) Venous insufficiency of both lower extremities (Chronic) Other specified peripheral vascular diseases (Chronic) Ankle ligament laxity (Chronic) Dislocation of ankle, left, closed (Chronic) Hardware failure (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) Hardware failure (Chronic) Diabetes mellitus, type II (Chronic) HTN (hypertension) (Chronic) HLD (hyperlipidemia) (Chronic) Dilated cardiomyopathy (Chronic) Aortic valve disease (Chronic) ANDRADE (obstructive sleep apnea) (Chronic) Chronic respiratory failure with hypoxia and hypercapnia (Chronic) Super obesity (Chronic) Diastolic dysfunction (Chronic) Obesity hypoventilation syndrome (Chronic) Vitamin D deficiency (Chronic) Thrombocytopenia (Chronic) Anemia (Chronic) Sleep walking (Chronic) Ulcer of left lower extremity with fat layer exposed (Chronic) Lymphedema (Chronic) Pseudarthrosis after fusion or arthrodesis (Chronic) Arthrodesis status (Chronic) Instability of left ankle joint (Chronic) Medical History: Medical History (Last Reviewed 07/24/18 @ 22:47 by Rachid Santana MD) Aortic valve disease I35.9 Congestive heart failure I50.9 Hyperlipidemia E78.5 Lymphedema I89.0 Pulmonary embolism I26.99 Sleep apnea G47.30 Super obesity E66.9 Venous insufficiency of both lower extremities I87.2 Vitamin D deficiency E55.9 Walking difficulty due to ankle and foot R26.2 Wound healing, delayed T14.8XXD Allergies No Known Allergies Allergy (Verified 07/18/18 08:19) Home Medications: Ambulatory Orders Medication Instructions Recorded Aspirin 325 mg PO DAILY@0800 01/18/17 Carvedilol [Coreg (Beta Ez)] 25 mg PO BID 01/18/17 Furosemide 40 - 60 mg PO DAILY 01/18/17 Insulin NPH Hum/Reg Insulin Hm 10 unit SQ BREAKFAST 01/18/17 [Humulin 70-30 Vial] hydrALAZINE [Apresoline] 25 mg PO BID 01/18/17 Rivaroxaban [Xarelto] 15 mg PO QHS 07/18/18 glipiZIDE [Glucotrol] 5 mg PO BID 07/18/18 Surgical History: - - His recent surgeries on the left ankle in both December (2017), May (2017) and today (07/24/2018) as noted. Additional surgeries include tonsillectomy, appendectomy, left inguinal surgery repair. Psychiatric History: No pertinent psych hx Lives: Spouse/ Significant Other, With Family Smoking Status: Never smoker Tobacco Use: Non-smoker Alcohol: None Drugs: None - *Family History Maternal History Items: Cancer, Heart Disease - Mother w/ CHF Hx. Paternal History Items: Heart Disease - CAD, s/p CABG in his 60s. Review of Systems Unable to obtain accurate/complete ROS d/t: Lethargy VTE Information - Inpt Only VTE Present on Admission: No VTE Mechan Device Prophylaxis: None VTE Pharm Prophylaxis ordered?: No Reason prophylaxis not ordered:: Treatment Not Indicated - Resume Xarelto next day after surgery if there are no contraindications. Patient Problems: Active and Suspected Problems (Last Reviewed 07/24/18 @ 22:47 by Rachid Santana MD) Acute encephalopathy (Acute) Acute respiratory failure with hypoxemia (Acute) Acute hypercapnic respiratory failure (Acute) - Physical Exam General: Lethargic HEENT: Atraumatic, Normocephalic Neck: Trachea Midline Lungs: Diminished Cardiovascular: Regular rate, - - Diminished heart sounds. Abdomen: Hypoactive Bowel Sounds Extremities: - - Right leg with allen wrap; left leg with external device and allen wrap Skin: No rashes - on exposed areas Musculoskeletal: No Muscle Wasting Lymphatic: No Cervical, Supraclavicular, or Inguinal Adenopathy Neurological: - - Lethargic Psych/Mental Status: - - lethargic Vital Signs Temp Pulse Resp BP Pulse Ox 96.8 F L 59 L 14 138/67 H 91 07/24/18 19:13 07/24/18 21:45 07/24/18 21:45 07/24/18 21:45 07/24/18 21:45 Oxygen Flow Rate (L/min) 10 Oxygen Delivery Method Bi-pap Weight: 175.2 kg Body Mass Index (BMI) 55.4 Finger Stick Blood Glucose 111 Laboratory Tests Past 24 Hrs 07/24/18 07/24/18 07/24/18 12:20 12:20 12:20 PT 14.4 INR 1.1 APTT 33.0 Hemoglobin A1c 8.5 H Total Bilirubin 0.80 Direct Bilirubin 0.23 AST 10 L ALT 9 L Alkaline Phosphatase 85 Total Protein 8.0 Albumin 2.7 L Globulin 5.3 H Vitamin D 25-Hydroxy 07/24/18 12:20 PT INR APTT Hemoglobin A1c Total Bilirubin Direct Bilirubin AST ALT Alkaline Phosphatase Total Protein Albumin Globulin Vitamin D 25-Hydroxy 32.2 POC Glucose 07/24/18 07/24/18 19:15 12:26 POC Glucose 178 H 124 H Assessment/Plan All Active Problems (Last Reviewed 07/24/18 @ 22:47 by Rachid Santana MD) Cellulitis of left leg (Acute) Acute encephalopathy (Acute) Acute respiratory failure with hypoxemia (Acute) Acute hypercapnic respiratory failure (Acute) Cellulitis of left ankle (Resolved) Chronic ulcer of left foot with fat layer exposed (Resolved) Ulcer of left lower extremity with fat layer exposed (Resolved) The patient is a 63 year old M with a significant medical history of super morbid obesity; obstructive sleep apnea on CPAP; diabetes mellitus; congestive heart failure and 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 Acute encephalopathy Likely due to CO2 narcosis and hypoxia Other etiologies include ENVIRONMENTAL DEPARTMENT MANAGER depression from narcotics and other ENVIRONMENTAL DEPARTMENT MANAGER depressants from surgery. Continue BiPAP. Consider repeating ABG in a.m. CBC already ordered. Stat BMP ordered. Acute respiratory failure secondary to hypoxia and hypercapnia. BiPAP as above. s/p debridement and bone biopsy of nonunion left ankle and subtalar joint arthrodesis site with Augment regenerative injection and bone marrow aspirate (harvested from contralateral right leg) s/p external fixation device adjustment s/p ulcer was debridement and primary repair Podiatry to Manage Pain control by podiatry. Discussed with nursing team to be careful on pain medication administration in the setting of lethargy and prior episode of unresponsiveness Diabetes mellitus His blood glucose is fairly stable. History is unable to be obtained from patient since patient is lethargic. On his home list is NPH/regular insulin 70-30; and glipizide. Because of his acute encephalopathy we will keep n.p.o. for now Check every 6 hours with medium correction scale. Hold glipizide and 70-30 Resume diet if patient is off BiPAP and his mentation improves. Congestive heart failure Coreg and Lasix held due to hypotension. Trend blood pressures. Consider resuming Coreg and Lasix if blood pressure remains stable. Hypertension His blood pressure is labile at this point. Blood pressure medication held. Gentle fluid hydration at this time. Trend blood pressures and resume blood pressure medications as necessary. ANDRADE Bipap as above DVT prophylaxis Patient has a history of a PE. Xarelto was held prior to surgery. Cooking Chef reports that patient can resume Xarelto on 07/25/2018 if there are no further contraindications. Patient has external device to left ankle and SCD will be contraindicated at this time. Also patient had bone marrow aspiration to right lower extremity and per podiatry SCD should be held for at least the first day of surgery. Code Visit OBSV E&M: 40225 Initial observation care L3
--- NOTE | 2018-07-24 22:05 | NURSING ---
received report via telephone from Tg in PACU. irene to send patient to floor.
--- NOTE | 2018-07-24 22:37 | CPS ---
reduced pressures for pt comfort
[2018-07-24 22:57] LABS: Hematocrit 42.6 % (40-54); Hemoglobin 11.3 g/dl (13.0-16.5); Mean Corp Hgb Conc 26.5 g/gl (32-36); Mean Corpuscular Hgb 23.8 pg (27.0-32.0); Mean Corpuscular Volume 89.9 fL (80-94); Mean Platelet Vol. 10.5 fl (6.2-12.0); Platelet Count 233 K/mm3 (150-450); RBC Distribution Width CV 18.6 % (11.6-14.6); RBC Distribution Width SD 59.3 fl (35.1-43.9); Red Blood Count 4.74 M/mm3 (4.6-6.2); Scan Indicated on CBC? Y/N NO; White Blood Count 5.5 K/mm3 (4.4-11.0)
[2018-07-24 23:06] LABS: Anion Gap 3 (5-15); BUN 35 mg/dL (7-18); BUN/Creat Ratio 29.2 RATIO (10-20); Calcium,Total 8.4 mg/dL (8.5-10.1); Chloride 100 mmol/L (98-107); EST Glomerular Filtration Rate 65 mL/min (>60); Est Glom Filt Rate - Afr Amer 78 mL/min (>60); Estimated Creatinine Clearance 63.37 ml/min; Glucose 178 mg/dL (74-106); Potassium 5.3 mmol/L (3.5-5.1); Sodium Level 139 mmol/L (136-145)
[2018-07-24] MEDS: 0.9% Normal Saline 1,000 ML 100 ML IV (23:18)
[2018-07-24] MEDS: Insulin Lispro 100 UNIT/ML INSULN.PEN SQ (23:24)
[2018-07-24 23:26] LABS: Bedside Glucose 177 mg/dL (70-110)
--- NOTE | 2018-07-24 23:40 | CPS ---
Addendum entered by Bear Carmen 07/24/18 23:40: IPAP increased to 18 cm Original Note: increased IPAP to increase tidal volumes
[2018-07-25] VITALS (18 sets, daily range): BP systolic 134–175; BP diastolic 63–81; PULSE 49–82; RESP 12–24; TEMP 36.1–36.9; O2SAT 40–99
[2018-07-25 05:20] LABS: Absolute Lymphocyte Count 0.59 X10^3/ul (0.83-4.51); Absolute Neutrophil Count 3.5 X10^3/uL (2.0-7.7); Differential Indicated SCAN CRITERIA MET; Hematocrit 42.8 % (40-54); Lymphocyte # 0.59 X10^3/ul (4.0); Lymphocyte % 13.1 % (19-41); Mean Corp Hgb Conc 25.7 g/gl (32-36); Mean Corpuscular Volume 89.5 fL (80-94); Mean Platelet Vol. 9.1 fl (6.2-12.0); Monocyte# 0.36 X10^3/uL; Neutrophil # 3.53 X10^3/uL (2.7-7.7); Neutrophil % 78.7 % (47-70); POSITIVE COUNT NO; POSITIVE DIFFERENTIAL YES; POSITIVE MORPHOLOGY NO; Platelet Count 212 K/mm3 (150-450); RBC Distribution Width CV 18.4 % (11.6-14.6); RBC Distribution Width SD 58.8 fl (35.1-43.9); Red Blood Count 4.78 M/mm3 (4.6-6.2); White Blood Count 4.5 K/mm3 (4.4-11.0)
[2018-07-25 05:37] LABS: Anion Gap 4 (5-15); BUN 38 mg/dL (7-18); BUN/Creat Ratio 31.1 RATIO (10-20); Calcium,Total 8.3 mg/dL (8.5-10.1); Chloride 101 mmol/L (98-107); Creatinine, Serum 1.22 mg/dL (0.70-1.30); EST Glomerular Filtration Rate 63 mL/min (>60); Est Glom Filt Rate - Afr Amer 77 mL/min (>60); Estimated Creatinine Clearance 62.33 ml/min; Glucose 141 mg/dL (74-106); Sodium Level 143 mmol/L (136-145)
[2018-07-25 06:52] LABS: Bedside Glucose 113 mg/dL (70-110)
--- NOTE | 2018-07-25 08:00 | RAD_ITS ---
STUDY: X-RAY - LEFT ANKLE REASON FOR EXAM: Male, 63 years old. Status post ankle and subtalar joint arthrodesis. TECHNIQUE: 3 view(s) of the ankle. COMPARISON: Comparison is made with prior examination dated July 24, 2018. FINDINGS: Once again, external fixation hardware is seen. There is evidence of a marked degree of a degenerative changes of the ankle joint with evidence of a resection of the distal fibula. RAD/Ankle min 3 Views IMPRESSION: External fixation device. This is unchanged. Electronically Signed: Markell Osman MD at 13:30 EST , Service support ,
--- NOTE | 2018-07-25 08:13 | PN_ITS ---
Patient Problems: Active and Suspected Problems (Last Reviewed 07/24/18 @ 22:47 by Rachid Santana MD) Acute encephalopathy (Acute) Acute respiratory failure with hypoxemia (Acute) Acute hypercapnic respiratory failure (Acute) Subjective: This 63-year-old male was seen today postoperative day #1 for a bone biopsy and nonunion ankle and subtalar joint arthrodesis site debridement and augmentation of the left lower extremity. He also had bone marrow aspirate harvested from the right tibia. He denies fever, chill, nausea, vomiting. He is responsive and able to answer questions this morning. He denies lower extremity pain. He denies chest pain at this time. He is currently on BiPAP. - Physical Exam General: Alert, Oriented x3, Cooperative HEENT: Atraumatic Extremities: No cyanosis, Capillary Refill Less than 3 Seconds - all toes bilateral lower extremities, No Calf Tenderness - Negative Montano sign right lower extremity, Edema - Lymphedema bilateral lower extremities, - - Left lower extremity remains in a rectus position with the external fixation device intact Skin: - - Bilateral lower extremity dressings are clean, dry, intact without any strikethrough appreciated Musculoskeletal: No Tenderness to Palpation of Joints or Extremities, - - Active range of motion of digits bilateral lower extremities Neurological: - - Lack of epicritic sensation to light touch to bilateral digits consistent with neuropathy Psych/Mental Status: Normal Affect, Appropriate Vital Signs Temp Pulse Resp BP Pulse Ox 98.4 F 59 L 14 164/72 H 93 07/25/18 04:00 07/25/18 07:05 07/25/18 07:00 07/25/18 07:00 07/25/18 07:00 Oxygen Flow Rate (L/min) 98 Oxygen Delivery Method Bi-pap Weight: 174 kg Body Mass Index (BMI) 55.4 Finger Stick Blood Glucose 178 Intake and Output for Last 24 Hours 07/23/18 07/24/18 07/25/18 23:59 23:59 23:59 Intake Total 1400 / 1400 689 / 689 Output Total 0 / 0 300 / 300 Balance 1400 / 1400 389 / 389 Laboratory Tests Past 24 Hrs 07/24/18 07/24/18 07/24/18 12:20 12:20 12:20 WBC RBC Hgb Hct MCV MCH MCHC RDW RDW Differential Plt Count MPV Immature Gran % (Auto) Neut % (Auto) Lymph % (Auto) Dolores % (Auto) Eos % (Auto) Baso % (Auto) Absolute Neuts (auto) Absolute Lymphs (auto) Total Counted Differential Comment PT 14.4 INR 1.1 APTT 33.0 Sodium Potassium Chloride Carbon Dioxide Anion Gap BUN Creatinine Estim Creat Clear Calc Est GFR (MDRD) Af Amer Est GFR (MDRD) Non-Af BUN/Creatinine Ratio Glucose Hemoglobin A1c 8.5 H Calcium Total Bilirubin 0.80 Direct Bilirubin 0.23 AST 10 L ALT 9 L Alkaline Phosphatase 85 Total Protein 8.0 Albumin 2.7 L Globulin 5.3 H Vitamin D 25-Hydroxy 07/24/18 07/24/18 07/24/18 12:20 22:36 22:36 WBC 5.5 RBC 4.74 Hgb 11.3 L Hct 42.6 MCV 89.9 MCH 23.8 L MCHC 26.5 L RDW 18.6 H RDW Differential 59.3 H Plt Count 233 MPV 10.5 Immature Gran % (Auto) Neut % (Auto) Lymph % (Auto) Dolores % (Auto) Eos % (Auto) Baso % (Auto) Absolute Neuts (auto) Absolute Lymphs (auto) Total Counted Differential Comment PT INR APTT Sodium 139 Potassium 5.3 H Chloride 100 Carbon Dioxide 36.0 H Anion Gap 3 L BUN 35 H Creatinine 1.20 Estim Creat Clear Calc 63.37 Est GFR (MDRD) Af Amer 78 Est GFR (MDRD) Non-Af 65 BUN/Creatinine Ratio 29.2 H Glucose 178 H Hemoglobin A1c Calcium 8.4 L Total Bilirubin Direct Bilirubin AST ALT Alkaline Phosphatase Total Protein Albumin Globulin Vitamin D 25-Hydroxy 32.2 07/25/18 07/25/18 05:08 05:08 WBC 4.5 RBC 4.78 Hgb 11.0 L Hct 42.8 MCV 89.5 MCH 23.0 L MCHC 25.7 L RDW 18.4 H RDW Differential 58.8 H Plt Count 212 MPV 9.1 Immature Gran % (Auto) 0.200 Neut % (Auto) 78.7 H Lymph % (Auto) 13.1 L Dolores % (Auto) 8.0 Eos % (Auto) 0.0 Baso % (Auto) 0.0 Absolute Neuts (auto) 3.5 Absolute Lymphs (auto) 0.59 L Total Counted Not Reportable Differential Comment PT INR APTT Sodium 143 Potassium 5.0 Chloride 101 Carbon Dioxide 38.0 H Anion Gap 4 L BUN 38 H Creatinine 1.22 Estim Creat Clear Calc 62.33 Est GFR (MDRD) Af Amer 77 Est GFR (MDRD) Non-Af 63 BUN/Creatinine Ratio 31.1 H Glucose 141 H Hemoglobin A1c Calcium 8.3 L Total Bilirubin Direct Bilirubin AST ALT Alkaline Phosphatase Total Protein Albumin Globulin Vitamin D 25-Hydroxy POC Glucose 07/25/18 07/24/18 07/24/18 06:44 23:18 19:15 POC Glucose 113 H 177 H 178 H 07/24/18 12:26 POC Glucose 124 H Medical Necessity - Tobacco Use Smoking Status: Never smoker Tobacco Use: Non-smoker Assessment/Plan All Active Problems (Last Reviewed 07/24/18 @ 22:47 by Rachid Santana MD) Cellulitis of left leg (Acute) Acute encephalopathy (Acute) Acute respiratory failure with hypoxemia (Acute) Acute hypercapnic respiratory failure (Acute) Cellulitis of left ankle (Resolved) Chronic ulcer of left foot with fat layer exposed (Resolved) Ulcer of left lower extremity with fat layer exposed (Resolved) POD #1 debridement and bone biopsy of nonunion left ankle and subtalar joint arthrodesis sites with Augment regenerative injection and bone marrow aspirate (harvested from contralateral right leg) s/p external fixation device adjustment left s/p ulcer was debridement and primary repair left ankle Uncontrolled diabetes with neuropathy, last hemoglobin A1c 8.5% Postoperative unresponsiveness with suspected acute respiratory failure secondary to hypoxia and hypercapnia, now improved Walking difficulty Recent history of pulmonary embolism Other comorbidities as noted: obstructive sleep apnea, congestive heart failure, hypertension, hyperlipidemia History of vitamin D deficiency, improving (32.2) The patient was evaluated this morning. His vital signs remained stable and he is afebrile. He is on BiPAP. FiO2 is 35. His labs were reviewed and he does not demonstrate leukocytosis. His hemoglobin level is 11. He denies pain at this time. To continue with elevation of the left lower extremity; he is successfully performing for this time. Strict nonweightbearing is recommended to left lower extremity. I recommend physical therapy work with him to ensure strict nonweightbearing. I recommend continue vitamin D supplementation, glycemic control, and proper nutrition to optimize healing. His dressing was kept intact. Additional gradual deformity correction with compression to the hexapod external fixation device will be pursued in the outpatient setting. Ok to resume anticoagulation medication from a surgical standpoint. Medical management per primary team is appreciated. His responsiveness has improved overnight and he is now alert and oriented. It is noted he is still NPO at this time and on BiPAP. Please do not hesitate to call if you have any additional questions. Aubrie Valdez DPM, MERGED WITH [facility] [phone]
[2018-07-25] MEDS: Aspirin 325 MG Tablet PO (10:37)
[2018-07-25] MEDS: glipiZIDE 5 MG Tablet PO (10:37)
[2018-07-25] MEDS: Insulin Human 75/25 Kwickpen 10 UNIT SC (10:37)
[2018-07-25 12:11] LABS: Bedside Glucose 237 mg/dL (70-110)
--- NOTE | 2018-07-25 12:47 | PCM.PROGNOTE ---
Patient Problems: Active and Suspected Problems (Last Reviewed 07/24/18 @ 22:47 by Rachid Santana MD) Acute encephalopathy (Acute) Acute respiratory failure with hypoxemia (Acute) Acute hypercapnic respiratory failure (Acute) Subjective: Patient seen and examined. Alert and oriented, denies current complaints. Nursing reports brief episode of unresponsiveness early this morning, patient returned to normal after that time. Patient denies history of issues with anesthesia during prior procedures. - Physical Exam General: Alert, Oriented x3, Cooperative, No apparent distress HEENT: Atraumatic, PERRLA, EOMI, Normocephalic Neck: Supple, No JVD, Negative Carotid Bruits Lungs: Clear to auscultation, Diminished Cardiovascular: Regular rate, Regular Rhythm, Normal S1, Normal S2, No murmurs Abdomen: Bowel Sounds Present, Soft, Non Tender, Non-Distended, Obese Extremities: No clubbing, No cyanosis, No edema, Capillary Refill Less than 3 Seconds Skin: No rashes, No breakdown, - - Left lower extremity with external device and Alfonso wrap intact. Musculoskeletal: No Tenderness to Palpation of Joints or Extremities Neurological: Cranial nerves II-XII grossly intact, Neuro grossly intact Psych/Mental Status: Normal Affect, Appropriate Vital Signs Temp Pulse Resp BP Pulse Ox 98 F 82 18 147/68 H 93 07/25/18 10:00 07/25/18 11:07 07/25/18 11:00 07/25/18 11:00 07/25/18 11:00 Oxygen Flow Rate (L/min) 3 Oxygen Delivery Method Room Air Weight: 383 lb 9.669 oz Body Mass Index (BMI) 55.4 Finger Stick Blood Glucose 178 Intake and Output for Last 24 Hours 07/23/18 07/24/18 07/25/18 23:59 23:59 23:59 Intake Total 1400 / 1400 689 / 689 Output Total 0 / 0 300 / 300 Balance 1400 / 1400 389 / 389 Microbiology Past 72 Hours 07/24/18 15:50 Gram Stain - Final Bone - Ankle Wound Culture - Preliminary No growth-Final to follow 07/24/18 15:50 Gram Stain - Final Bone - Ankle Wound Culture - Preliminary No growth-Final to follow Laboratory Tests Past 24 Hrs 07/24/18 07/24/18 07/24/18 12:20 12:20 12:20 WBC RBC Hgb Hct MCV MCH MCHC RDW RDW Differential Plt Count MPV Immature Gran % (Auto) Neut % (Auto) Lymph % (Auto) Boundary % (Auto) Eos % (Auto) Baso % (Auto) Absolute Neuts (auto) Absolute Lymphs (auto) Total Counted Differential Comment PT 14.4 INR 1.1 APTT 33.0 Sodium Potassium Chloride Carbon Dioxide Anion Gap BUN Creatinine Estim Creat Clear Calc Est GFR (MDRD) Af Amer Est GFR (MDRD) Non-Af BUN/Creatinine Ratio Glucose Hemoglobin A1c 8.5 H Calcium Total Bilirubin 0.80 Direct Bilirubin 0.23 AST 10 L ALT 9 L Alkaline Phosphatase 85 Total Protein 8.0 Albumin 2.7 L Globulin 5.3 H Vitamin D 25-Hydroxy 07/24/18 07/24/18 07/24/18 12:20 22:36 22:36 WBC 5.5 RBC 4.74 Hgb 11.3 L Hct 42.6 MCV 89.9 MCH 23.8 L MCHC 26.5 L RDW 18.6 H RDW Differential 59.3 H Plt Count 233 MPV 10.5 Immature Gran % (Auto) Neut % (Auto) Lymph % (Auto) Boundary % (Auto) Eos % (Auto) Baso % (Auto) Absolute Neuts (auto) Absolute Lymphs (auto) Total Counted Differential Comment PT INR APTT Sodium 139 Potassium 5.3 H Chloride 100 Carbon Dioxide 36.0 H Anion Gap 3 L BUN 35 H Creatinine 1.20 Estim Creat Clear Calc 63.37 Est GFR (MDRD) Af Amer 78 Est GFR (MDRD) Non-Af 65 BUN/Creatinine Ratio 29.2 H Glucose 178 H Hemoglobin A1c Calcium 8.4 L Total Bilirubin Direct Bilirubin AST ALT Alkaline Phosphatase Total Protein Albumin Globulin Vitamin D 25-Hydroxy 32.2 07/25/18 07/25/18 05:08 05:08 WBC 4.5 RBC 4.78 Hgb 11.0 L Hct 42.8 MCV 89.5 MCH 23.0 L MCHC 25.7 L RDW 18.4 H RDW Differential 58.8 H Plt Count 212 MPV 9.1 Immature Gran % (Auto) 0.200 Neut % (Auto) 78.7 H Lymph % (Auto) 13.1 L Boundary % (Auto) 8.0 Eos % (Auto) 0.0 Baso % (Auto) 0.0 Absolute Neuts (auto) 3.5 Absolute Lymphs (auto) 0.59 L Total Counted Not Reportable Differential Comment PT INR APTT Sodium 143 Potassium 5.0 Chloride 101 Carbon Dioxide 38.0 H Anion Gap 4 L BUN 38 H Creatinine 1.22 Estim Creat Clear Calc 62.33 Est GFR (MDRD) Af Amer 77 Est GFR (MDRD) Non-Af 63 BUN/Creatinine Ratio 31.1 H Glucose 141 H Hemoglobin A1c Calcium 8.3 L Total Bilirubin Direct Bilirubin AST ALT Alkaline Phosphatase Total Protein Albumin Globulin Vitamin D 25-Hydroxy POC Glucose 07/25/18 07/25/18 07/24/18 12:06 06:44 23:18 POC Glucose 237 H 113 H 177 H 07/24/18 19:15 POC Glucose 178 H Medical Necessity - Tobacco Use Smoking Status: Never smoker Tobacco Use: Non-smoker Assessment/Plan All Active Problems (Last Reviewed 07/24/18 @ 22:47 by Rachid Santana MD) Cellulitis of left leg (Acute) Acute encephalopathy (Acute) Acute respiratory failure with hypoxemia (Acute) Acute hypercapnic respiratory failure (Acute) Cellulitis of left ankle (Resolved) Chronic ulcer of left foot with fat layer exposed (Resolved) Ulcer of left lower extremity with fat layer exposed (Resolved) 1. Acute hypoxic and hypercapnic respiratory failure-following anesthesia/recovery from surgery. Requiring BiPAP and high flow oxygen following surgery. Improving. Wean supplemental oxygen as tolerated to maintain O2 at or above 90%. BIPAP QHS and with naps. Patient has a history of requiring home supplemental oxygen. Will need walking pulse ox prior to discharge. 2. Acute metabolic encephalopathy-suspect secondary to #1/anesthesia. Improved. Patient was reported to have a brief unresponsive episode early this morning per nursing. Monitor overnight. Monitor telemetry. 3. Status post right tibia bone marrow aspirate, debridement and bone biopsy of left ankle, adjustment of external fixation device and debridement of left lateral ankle wound 07/24/[address] Valdez secondary to left ankle arthrodesis, chronic ankle instability with suspicion for osteomyelitis. Management per podiatry. 4. History of PE-on anticoagulation with Xarelto which was held prior to surgery. Patient can resume Xarelto 07/25/18. 5. Type 2 diabetes [id number] ACHS with SSI. Continue home insulin regimen and glipizide. 6. Hypertension-stable, continue home Coreg and Lasix regimen. 7. ANDRADE-continue BIPAP nightly. 8. Morbid obesity-encouraged diet and lifestyle modifications. 9. Chronic diastolic CHF-resume home Lasix regimen. DVT prophylaxis-SCDs, resume Xarelto when okay per podiatry. This patient was seen by LIZ Hernandez under the supervision of Dr. Nath.
--- NOTE | 2018-07-25 14:06 | PCM.DC.SUM ---
<Joan Lincoln - Last Filed: 07/25/18 14:14> Discharge Date and Diagnosis Date of Admission: 07/24/18 Date of Discharge: 07/25/18 - Primary Discharge Diagnosis Active and Suspected Problems (Last Reviewed 07/24/18 @ 22:47 by Rachid Santana MD) 1. Acute hypoxic and hypercapnic respiratory failure-following anesthesia/recovery from surgery. 2. Acute metabolic encephalopathy-suspect secondary to #1/anesthesia. 3. Brief episode of unresponsiveness-unclear etiology 4. Status post right tibia bone marrow aspirate, debridement and bone biopsy of left ankle, adjustment of external fixation device and debridement of left lateral ankle wound 07/24/[address] Valdez secondary to left ankle arthrodesis, chronic ankle instability with suspicion for osteomyelitis. Management per podiatry. 5. History of PE 6. Type 2 diabetes mellitus 7. Hypertension 8. ANDRADE 9. Morbid obesity 10. 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 failure (Chronic) Diabetes mellitus, type II (Chronic) HTN (hypertension) (Chronic) HLD (hyperlipidemia) (Chronic) Dilated cardiomyopathy (Chronic) Aortic valve disease (Chronic) ANDRADE (obstructive sleep apnea) (Chronic) Chronic respiratory failure with hypoxia and hypercapnia (Chronic) Super obesity (Chronic) Diastolic dysfunction (Chronic) Obesity hypoventilation syndrome (Chronic) Vitamin D deficiency (Chronic) Thrombocytopenia (Chronic) Anemia (Chronic) Sleep walking (Chronic) Ulcer of left lower extremity with fat layer exposed (Chronic) Lymphedema (Chronic) Pseudarthrosis after fusion or arthrodesis (Chronic) Arthrodesis status (Chronic) Instability of left ankle joint (Chronic) Hospital Course and Treatment Imaging Results: Diagnostic Data Ankle X-Ray 07/25/18 08:00 IMPRESSION: External fixation device. This is unchanged. Electronically Signed: Markell Osman MD at 13:30 EST , Service support , Dr. Valdez- Podiatry Operations: - - Removal of hardware left ankle with arthrodesis, internal fixation with bone graft and application of an external fixator Procedures: None Summary of Care Provided: The patient is a 63 year old M admitted 07/24/18 due to unresponsiveness following surgery. 1. Acute hypoxic and hypercapnic respiratory failure-following anesthesia/recovery from surgery. Requiring BiPAP and high flow oxygen following surgery. Improving. Patient required home supplement oxygen in the past. Recommended home oxygen testing prior to discharge. However patient elected to sign out AMA. 2. Acute metabolic encephalopathy-suspect secondary to #1/anesthesia. Improved. Patient was reported to have a brief unresponsive episode early this morning per nursing. [place] patient should be monitored overnight due to episode of unresponsiveness this morning. Patient and refused, elected to sign out AGAINST MEDICAL ADVICE. 3. Status post right tibia bone marrow aspirate, debridement and bone biopsy of left ankle, adjustment of external fixation device and debridement of left lateral ankle wound 07/24/[address] Valdez secondary to left ankle arthrodesis, chronic ankle instability with suspicion for osteomyelitis. Management per podiatry. 4. History of PE-on anticoagulation with Xarelto which was held prior to surgery. Patient can resume Xarelto 07/25/18. 5. Type 2 diabetes mellitus-Continue home insulin regimen and glipizide. 6. Hypertension-stable, continue home Coreg and Lasix regimen. 7. ANDRADE-continue BIPAP nightly. 8. Morbid obesity-encouraged diet and lifestyle modifications. 9. Chronic diastolic CHF-resume home Lasix regimen. General: Alert, Oriented x3, Cooperative, No apparent distress HEENT: Atraumatic, PERRLA, EOMI, Normocephalic Neck: Supple, No JVD, Negative Carotid Bruits Lungs: Clear to auscultation, Diminished Cardiovascular: Regular rate, Regular Rhythm, Normal S1, Normal S2, No murmurs Abdomen: Bowel Sounds Present, Soft, Non Tender, Non-Distended, Obese Extremities: No clubbing, No cyanosis, No edema, Capillary Refill Less than 3 Seconds Skin: No rashes, No breakdown, - - Left lower extremity with external device and Alfonso wrap intact. Musculoskeletal: No Tenderness to Palpation of Joints or Extremities Neurological: Cranial nerves II-XII grossly intact, Neuro grossly intact Psych/Mental Status: Normal Affect, Appropriate Patient seen and examined prior to discharge. Patient elected to sign out AGAINST MEDICAL ADVICE. This patient was seen by LIZ Hernandez under the supervision of Dr. Nath. - Physical Exam Vital Signs Temp Pulse Resp BP Pulse Ox 98 F 82 18 147/68 H 96 07/25/18 10:00 07/25/18 11:07 07/25/18 11:00 07/25/18 11:00 07/25/18 13:00 Oxygen Flow Rate (L/min) 2 Oxygen Delivery Method Room Air Weight: 383 lb 9.669 oz Body Mass Index (BMI) 55.4 Finger Stick Blood Glucose 178 Intake and Output for Last 24 Hours 07/23/18 07/24/18 07/25/18 23:59 23:59 23:59 Intake Total 1400 / 1400 1169 / 1169 Output Total 0 / 0 300 / 300 Balance 1400 / 1400 869 / 869 Microbiology Past 72 Hours 07/24/18 15:50 Gram Stain - Final Bone - Ankle Wound Culture - Preliminary No growth-Final to follow 07/24/18 15:50 Gram Stain - Final Bone - Ankle Wound Culture - Preliminary No growth-Final to follow Laboratory Tests Past 24 Hrs 07/24/18 07/24/18 07/25/18 22:36 22:36 05:08 WBC 5.5 4.5 RBC 4.74 4.78 Hgb 11.3 L 11.0 L Hct 42.6 42.8 MCV 89.9 89.5 MCH 23.8 L 23.0 L MCHC 26.5 L 25.7 L RDW 18.6 H 18.4 H RDW Differential 59.3 H 58.8 H Plt Count 233 212 MPV 10.5 9.1 Immature Gran % (Auto) 0.200 Neut % (Auto) 78.7 H Lymph % (Auto) 13.1 L [place] % (Auto) 8.0 Eos % (Auto) 0.0 Baso % (Auto) 0.0 Absolute Neuts (auto) 3.5 Absolute Lymphs (auto) 0.59 L Total Counted Not Reportable Differential Comment Sodium 139 Potassium 5.3 H Chloride 100 Carbon Dioxide 36.0 H Anion Gap 3 L BUN 35 H Creatinine 1.20 Estim Creat Clear Calc 63.37 Est GFR (MDRD) Af Amer 78 Est GFR (MDRD) Non-Af 65 BUN/Creatinine Ratio 29.2 H Glucose 178 H Calcium 8.4 L 07/25/18 05:08 WBC RBC Hgb Hct MCV MCH MCHC RDW RDW Differential Plt Count MPV Immature Gran % (Auto) Neut % (Auto) Lymph % (Auto) [place] % (Auto) Eos % (Auto) Baso % (Auto) Absolute Neuts (auto) Absolute Lymphs (auto) Total Counted Differential Comment Sodium 143 Potassium 5.0 Chloride 101 Carbon Dioxide 38.0 H Anion Gap 4 L BUN 38 H Creatinine 1.22 Estim Creat Clear Calc 62.33 Est GFR (MDRD) Af Amer 77 Est GFR (MDRD) Non-Af 63 BUN/Creatinine Ratio 31.1 H Glucose 141 H Calcium 8.3 L POC Glucose 07/25/18 07/25/18 07/24/18 12:06 06:44 23:18 POC Glucose 237 H 113 H 177 H 07/24/18 19:15 POC Glucose 178 H Home Medications: Medications to take at Discharge Aspirin 325 mg PO DAILY@0800 01/18/17 Carvedilol [Coreg (Beta Ez)] 25 mg PO BID 01/18/17 Furosemide 40 - 60 mg PO DAILY 01/18/17 Insulin NPH Hum/Reg Insulin Hm [Humulin 70-30 Vial] 10 unit SQ BREAKFAST 01/18/17 hydrALAZINE [Apresoline] 25 mg PO BID 01/18/17 Rivaroxaban [Xarelto] 15 mg PO QHS 07/18/18 glipiZIDE [Glucotrol] 5 mg PO BID 07/18/18 Other Amb Orders: 12 Lead EKG [CVS] Time Frame: 07/20/18, Facility: [facility], Location: [employer] Primary Care Physician: Dawson Olsen DO [Primary Care Provider] - Disposition: Against Medical Advice Minutes spent on discharge:: 35 Patient Condition:: Stable Medical Necessity - Tobacco Use Smoking Status: Never smoker Tobacco Use: Non-smoker Meaningful Use Info Meaningful Use Diagnoses (Choose all that apply): None applicable <Aime Nath - Last Filed: 07/25/18 14:45> Discharge Date and Diagnosis - Secondary Discharge Diagnosis Chronic Problems (Last Reviewed 07/24/18 @ 22:47 by Rachid Santana MD) Venous insufficiency of both lower extremities (Chronic) Other specified peripheral vascular diseases (Chronic) Ankle ligament laxity (Chronic) Dislocation of ankle, left, closed (Chronic) Hardware failure (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) Hardware failure (Chronic) Diabetes mellitus, type II (Chronic) HTN (hypertension) (Chronic) HLD (hyperlipidemia) (Chronic) Dilated cardiomyopathy (Chronic) Aortic valve disease (Chronic) ANDRADE (obstructive sleep apnea) (Chronic) Chronic respiratory failure with hypoxia and hypercapnia (Chronic) Super obesity (Chronic) Diastolic dysfunction (Chronic) Obesity hypoventilation syndrome (Chronic) Vitamin D deficiency (Chronic) Thrombocytopenia (Chronic) Anemia (Chronic) Sleep walking (Chronic) Ulcer of left lower extremity with fat layer exposed (Chronic) Lymphedema (Chronic) 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 Data reviewed. I agree with the above note by the nurse practitioner. The patient is a 63 year old M had a debridement and bone biopsy slowly healing left ankle fracture on the fifth. Postoperatively, patient had respiratory distress. Sats dropped down into the 50% range. Patient was put on BiPAP overnight and did well. Patient was changed over to the nasal cannula patient was breathing well. However sometime this morning, patient had a unresponsive spell where he was unresponsive for roughly 10 seconds and came to. Unclear as to the circumstances of that. Went and saw the patient and evaluated him and he was otherwise stable. I did recommend the patient be monitored overnight to ensure he did not have any further episodes of this unresponsiveness and issues with respiratory distress. He reluctantly agreed at that time, however, patient eventually decided to leave AGAINST MEDICAL ADVICE. [] - Physical Exam General: Alert, No apparent distress HEENT: Atraumatic, Normocephalic Oral: Moist Mucosa, No Gingival or Mucosal Lesions/ Ulcerations Lungs: Clear to auscultation, Diminished Cardiovascular: Regular rate, Regular Rhythm, Normal S1, Normal S2 Abdomen: Bowel Sounds Present, Soft, Non Tender, Non-Distended, Obese Vital Signs Temp Pulse Resp BP Pulse Ox 36.6 C 82 18 147/68 H 96 07/25/18 10:00 07/25/18 11:07 07/25/18 11:00 07/25/18 11:00 07/25/18 13:00 Oxygen Flow Rate (L/min) 2 Oxygen Delivery Method Room Air Weight: 174 kg Body Mass Index (BMI) 55.4 Finger Stick Blood Glucose 178 Intake and Output for Last 24 Hours 07/23/18 07/24/18 07/25/18 23:59 23:59 23:59 Intake Total 1400 / 1400 1169 / 1169 Output Total 0 / 0 300 / 300 Balance 1400 / 1400 869 / 869 Microbiology Past 72 Hours 07/24/18 15:50 Gram Stain - Final Bone - Ankle Wound Culture - Preliminary No growth-Final to follow 07/24/18 15:50 Gram Stain - Final Bone - Ankle Wound Culture - Preliminary No growth-Final to follow Laboratory Tests Past 24 Hrs 07/24/18 07/24/18 07/25/18 22:36 22:36 05:08 WBC 5.5 4.5 RBC 4.74 4.78 Hgb 11.3 L 11.0 L Hct 42.6 42.8 MCV 89.9 89.5 MCH 23.8 L 23.0 L MCHC 26.5 L 25.7 L RDW 18.6 H 18.4 H RDW Differential 59.3 H 58.8 H Plt Count 233 212 MPV 10.5 9.1 Immature Gran % (Auto) 0.200 Neut % (Auto) 78.7 H Lymph % (Auto) 13.1 L [place] % (Auto) 8.0 Eos % (Auto) 0.0 Baso % (Auto) 0.0 Absolute Neuts (auto) 3.5 Absolute Lymphs (auto) 0.59 L Total Counted Not Reportable Differential Comment Sodium 139 Potassium 5.3 H Chloride 100 Carbon Dioxide 36.0 H Anion Gap 3 L BUN 35 H Creatinine 1.20 Estim Creat Clear Calc 63.37 Est GFR (MDRD) Af Amer 78 Est GFR (MDRD) Non-Af 65 BUN/Creatinine Ratio 29.2 H Glucose 178 H Calcium 8.4 L 07/25/18 05:08 WBC RBC Hgb Hct MCV MCH MCHC RDW RDW Differential Plt Count MPV Immature Gran % (Auto) Neut % (Auto) Lymph % (Auto) [place] % (Auto) Eos % (Auto) Baso % (Auto) Absolute Neuts (auto) Absolute Lymphs (auto) Total Counted Differential Comment Sodium 143 Potassium 5.0 Chloride 101 Carbon Dioxide 38.0 H Anion Gap 4 L BUN 38 H Creatinine 1.22 Estim Creat Clear Calc 62.33 Est GFR (MDRD) Af Amer 77 Est GFR (MDRD) Non-Af 63 BUN/Creatinine Ratio 31.1 H Glucose 141 H Calcium 8.3 L POC Glucose 07/25/18 07/25/18 07/24/18 12:06 06:44 23:18 POC Glucose 237 H 113 H 177 H 07/24/18 19:15 POC Glucose 178 H Discharge Diet: Low fat/ Low Cholesterol Discharge Activity: Return to Normal Activity Disposition: Against Medical Advice Patient Condition:: Stable Medical Necessity - Tobacco Use Smoking Status: Never smoker Tobacco Use: Non-smoker Meaningful Use Info Meaningful Use Diagnoses (Choose all that apply): None applicable Code Visit Inpatient E&M: 06016 Disch Hosp
--- NOTE | 2018-07-25 14:15 | NURSING ---
PATIENT AND REQUESTING TO LEAVE AMA. AMA PAPER SIGNED AT THIS TIME.
== END 2018-07-25 14:48 | disposition left against medical advice (07) ==
LOC: PCU 22:01 → SDC 22:08
PROVIDERS: Anesthesiology; Admitting Provider Hospitalist; Family Provider Family Medicine; PCP Family Medicine; Referring Provider Podiatrist
PROC: (CPT 20693; principal; 2018-07-24 13:45)
DX: M96.0 Pseudarthrosis after fusion or arthrodesis (principal); Y83.8 Other surgical procedures as the cause of abnormal reaction of the patient, or of later complication, without mention of misadventure at the time of the procedure; M25.372 Other instability, left ankle; E11.42 Type 2 diabetes mellitus with diabetic polyneuropathy; E66.2 Morbid (severe) obesity with alveolar hypoventilation; J96.22 Acute and chronic respiratory failure with hypercapnia; G93.41 Metabolic encephalopathy; J96.21 Acute and chronic respiratory failure with hypoxia; E78.5 Hyperlipidemia, unspecified; I11.0 Hypertensive heart disease with heart failure; I50.32 Chronic diastolic (congestive) heart failure; E55.9 Vitamin D deficiency, unspecified; E11.65 Type 2 diabetes mellitus with hyperglycemia; I87.2 Venous insufficiency (chronic) (peripheral); Z79.899 Other long term (current) drug therapy; Z79.01 Long term (current) use of anticoagulants; Z79.4 Long term (current) use of insulin; Z79.82 Long term (current) use of aspirin; Z68.43 Body mass index [BMI] 50.0-59.9, adult; Z71.3 Dietary counseling and surveillance; Z86.711 Personal history of pulmonary embolism
CPT/HCPCS: 01480; 20693; 27620; 36415; 73610; 76000; 80048; 80076; 82306; 82962; 83036; 85025; 85027; 85610; 85730; 87015; 87070; 87075; 87102; 87116; 87205; 87206; 88304; 88305; 88311; 93005; 94002; 94003; 96360; 96361; 97162; 99218; J7030; J7120; G0378; G0379; J2405

== ENCOUNTER → 2018-10-01 08:11 | Outpatient (CLI) | payer SELFPAY ==
[2018-07-24 12:32] VITALS: BMI 55.4
--- NOTE | 2018-10-01 08:18 | CT_ITS ---
HISTORY: Left ankle arthrodesis EXAMINATION: CT left ankle without contrast TECHNIQUE: Routine bone CT protocol was performed of the left ankle. 2-D reformats were performed by the technologist. A radiation dose optimization technique was used for this scan. IV Contrast dosage and agent: None. COMPARISON: Left ankle plain film 07/25/[address] exam 07/09/2018 FINDINGS: Similar findings compared to previous. Unavoidable reconstruction artifact related to the external fixator device. The external fixator is anchored with tibial screws, a posterior calcaneal screw, and left midfoot screw. The screws remain intact. Stable bony alignment. Previous surgical resection of the distal left fibula. The distal tibia shows long segment periosteal bone thickening together with multiple radiolucent screw tracks from prior screws. Triple arthrodesis performed with bone grafting. Chronic collapse and fragmentation of the talar dome. No visible solid union of the graft or arthrodesis sites. Fibrous union is possible. 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 CT/Extremity Lower without Contra IMPRESSION: 1. Left ankle triple arthrodesis with external fixator in place. Stable bony alignment. 2. The arthrodesis sites show no solid bony union. Fibrous union is possible. 3. 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 Chronic talar collapse. Individualized dose optimization techniques were used for this CT. at 0438 Reported and signed by: Kulwant Hamm MD Electronically Signed: Kulwant Hamm, at 4:37 EDT Tel , Service support ,
== END ==
PROVIDERS: Family Provider Family Medicine; PCP Family Medicine; Referring Provider Podiatrist; Visit Provider Podiatrist
DX: M96.0 Pseudarthrosis after fusion or arthrodesis (principal); Z98.1 Arthrodesis status
CPT/HCPCS: 73700

== ENCOUNTER → 2018-10-12 | Outpatient (CLI) | payer SELFPAY ==
[2018-07-24 12:32] VITALS: BMI 55.4
[2018-10-12 12:20] LABS: Absolute Lymphocyte Count 0.72 X10^3/ul (0.83-4.51); Absolute Neutrophil Count 4.1 X10^3/uL (2.0-7.7); Basophil# 0.01 X10^3/uL; Basophil% 0.2 % (0-1); Eosinophil# 0.08 X10^3/uL; Eosinophils% 1.5 % (0-5); Hemoglobin 10.7 g/dl (13.0-16.5); Lymphocyte # 0.72 X10^3/ul (4.0); Lymphocyte % 13.8 % (19-41); Mean Corp Hgb Conc 29.7 g/gl (32-36); Mean Corpuscular Volume 84.1 fL (80-94); Mean Platelet Vol. 10.1 fl (6.2-12.0); Monocyte# 0.31 X10^3/uL; Neutrophil # 4.08 X10^3/uL (2.7-7.7); Neutrophil % 78.5 % (47-70); Platelet Count 261 K/mm3 (150-450); RBC Distribution Width SD 52.6 fl (35.1-43.9); Red Blood Count 4.28 M/mm3 (4.6-6.2); White Blood Count 5.2 K/mm3 (4.4-11.0)
[2018-10-12 12:26] LABS: POSITIVE COUNT NO; POSITIVE DIFFERENTIAL NO; POSITIVE MORPHOLOGY NO
[2018-10-12 12:30] LABS: ALB/GLOB Ratio 0.5 RATIO (0.9-2.4); AST(SGOT) 12 U/L (15-37); Alanine Aminotransfer ALT/SGPT 10 U/L (16-61); Albumin, Serum 2.6 g/dL (3.2-5.0); Alkaline Phosphatase 77 U/L (45-117); Anion Gap 5 (5-15); BUN 29 mg/dL (7-18); BUN/Creat Ratio 21.8 RATIO (10-20); Chloride 99 mmol/L (98-107); Creatinine, Serum 1.33 mg/dL (0.70-1.30); EST Glomerular Filtration Rate 57 mL/min (>60); Est Glom Filt Rate - Afr Amer 69 mL/min (>60); Globulin 5.1 g/dL (2.2-4.2); Glucose 109 mg/dL (74-106); Potassium 4.3 mmol/L (3.5-5.1); Protein, Total 7.7 g/dL (6.4-8.2); Sodium Level 139 mmol/L (136-145)
== END | disposition home or self-care (01) ==
LOC: MTLAB 10:38
PROVIDERS: Family Provider Family Medicine; PCP Family Medicine; Referring Provider Family Medicine; Visit Provider Family Medicine
DX: Z01.818 Encounter for other preprocedural examination (principal)
CPT/HCPCS: 36415; 80053; 85025

== ENCOUNTER 2018-10-19 12:54 | Day surgery (SDC) | payer SELFPAY ==
[2018-07-24 12:32] VITALS: BMI 55.4
[2018-10-19] VITALS (8 sets, daily range): BP systolic 143–179; BP diastolic 79–88; PULSE 65–72; RESP 16–18; TEMP 36.3–36.8; O2SAT 92–100; BMI 50.7
[2018-10-19 13:41] LABS: Bedside Glucose 115 mg/dL (70-110)
[2018-10-19 14:06] LABS: Vitamin D,25 Hydroxy 36.4 ng/mL (29.95-100.01)
--- NOTE | 2018-10-19 14:30 | RAD_ITS ---
STUDY: X-RAY - LEFT ANKLE REASON FOR EXAM: Male, 63 years old. Hardware fixation TECHNIQUE: 16 intraoperative fluoroscopic images of the ankle. COMPARISON: 07/25/2018 FINDINGS: Fluoroscopic guidance was provided during fixation of the left ankle. Correlation with the operative report is recommended. RAD/Ankle min 3 Views IMPRESSION: As above. Electronically Signed: Ubaldo Chauhan, at 21:23 EDT Tel , Service support ,
[2018-10-19] MEDS: Bupivacaine Mpf 0.5% 30 ML VIAL (17:00)
[2018-10-19] MEDS: Calcium Chloride 1 GM/10 ML Syringe (17:00)
[2018-10-19] MEDS: Heparin 10,000 UNITS/10 ML Vial 10000 UNITS (17:00)
--- NOTE | 2018-10-19 18:01 | RAD_ITS ---
STUDY: X-RAY - LEFT FOOT REASON FOR EXAM: Male, 63 years old. External fixation adjustment with left ankle arthrodesis. TECHNIQUE: 4 view(s) of the ankle. COMPARISON: 07/25/2018 FINDINGS: Again noted is extensive external fixation hardware. Evaluation is limited by the overlying hardware. There are postsurgical changes from resection of the distal fibula and left ankle arthrodesis. There is no acute fracture identified. Alignment is grossly normal. RAD/Foot min 3 Views IMPRESSION: Extensive external fixation hardware which limits evaluation. Grossly normal alignment. Electronically Signed: Ubaldo Chauhan, at 22:03 EDT Tel , Service support ,
--- NOTE | 2018-10-19 18:05 | DCINST_ITS ---
Discharge Activity: May Not Drive Ice area for (Minutes): 15 - place behind knee only Weight Bearing Status: No weight bearing Keep extremity elevated above heart level: Left Leg Call your doctor if your incision/area has: Continuous Slow Oozing, Sudden Increased Bleeding, Increased Pain/ Swelling, Increased Redness, Foul Smelling Discharge, Swelling at the incision site Call your doctor if you observe: Fever of 101 or Higher, Calf discomfort, Uncontrolled pain Cleanse incision/area with: Keep Dressing Clean & Dry Allergies/Adverse Reactions: Allergies No Known Allergies Allergy (Verified 10/15/18 12:13) Medications to take at Discharge Aspirin 325 mg PO DAILY@0800 01/18/17 Carvedilol [Coreg (Beta Ez)] 25 mg PO BID 01/18/17 Furosemide 40 mg PO DAILY 01/18/17 Insulin NPH Hum/Reg Insulin Hm [Humulin 70-30 Vial] 10 unit SQ BREAKFAST 01/18/17 hydrALAZINE [Apresoline] 25 mg PO BID 01/18/17 glipiZIDE [Glucotrol] 5 mg PO BID 07/18/18 Bone And Tissue 1 cap PO DAILY 10/15/18 Calcium (Elemental) [Os-Reginaldo 500] 500 mg PO DAILY@0800 10/15/18 Cholecalciferol (Vitamin D3) [Vitamin D3] 2,000 unit PO DAILY 10/15/18 Primary Care Physician: Dawson Olsen DO [Primary Care Provider] - Test Results: Test results from this visit will be discussed in further detail at your follow- up appointment, if applicable. Please Follow Up With: Aubrie Valdez DPM When: next week at [facility]; call [phone] sooner if concerns Proposed Discharge Date: 10/19/18
--- NOTE | 2018-10-19 18:07 | RAD_ITS ---
STUDY: X-RAY - LEFT ANKLE REASON FOR EXAM: Male, 63 years old. External fixation adjustment with left ankle arthrodesis. TECHNIQUE: 4 view(s) of the ankle. COMPARISON: 07/25/2018 FINDINGS: Again noted is extensive external fixation hardware. Evaluation is limited by the overlying hardware. There are postsurgical changes from resection of the distal fibula and left ankle arthrodesis. There is no acute fracture identified. Alignment is grossly normal. RAD/Ankle min 3 Views IMPRESSION: Extensive external fixation hardware which limits evaluation. Grossly normal alignment. Electronically Signed: Ubaldo Chauhan, at 22:02 EDT Tel , Service support ,
--- NOTE | 2018-10-19 18:09 | PCM.OPRPT ---
Problem List (1) Pseudarthrosis after fusion or arthrodesis Status: Chronic (2) Type 2 diabetes mellitus with diabetic polyneuropathy Status: Chronic (3) Left ankle instability Status: Chronic (4) Vitamin D deficiency Status: Chronic (5) Lymphedema Status: Chronic Report of Operation Date of Procedure: 10/19/18 Pre-Operative Diagnosis: non union left tibiotalar arthrodesis. ankle instability left ankle. ulcer lateral left ankle with fat layer exposed Post-Operative Diagnosis: non union left tibiotalar arthrodesis. ankle instability left ankle. ulcer lateral left ankle with fat layer exposed Surgery/Procedure Performed:: percutaneous debridement of left tibiotalar joint arthrodesis site. Application of advanced bone graft and bone marrow aspirate (harvest from ipsilateral leg). External fixation adjustment including foot half pins and additional arthrodesis site compression Description of Surgical Findings:: hemostasis controlled; no tourniquet material: 3 cc augment bone graft, arteriocyte bone marrow aspirate kit (BMAC and PPP), 3-0 nylon, two 4.0 half pins, three orthofix rods complications: none The patient tolerated the procedure and anesthesia well. He was transported to the PACU with vital signs stable and vascular status intact to the left lower extremity. To ice and elevate for pain and inflammation control. To maintain a strict non weightbearing status. No deep necrosis or infection was noted. The ankle is in a maintained rectus position with additional compression. Orthofix struts and additional reinforcement rods are in desired position. Post operative orders entered electronically.He will be discharged home this evening. Radiographs were reviewed prior to leaving the operating room with ankle rectus position with additional compression noted. No acute injuries were noted proper new pin placement was confirmed in the foot. electric solderer: none - surgeon: Aubrie Valdez DPM. Cardiopulmonary Technologist Chief: Rachid Guzman PGY2 Type of Anesthesia:: Local - intra operative: ~ 20 cc of 1:1 mixture of 1% lidocaine plain and 0.5% marcain plain administered in local inflitrative manner to bone marrow aspirate harvest site, anterior tibiotalar entry sites, and lateral halp pin entry site, Other - left lower extremity regional block (posterior sciatica) Estimated Blood Loss (mL): < 200 mL Description of Procedure: Indications: This 63 year old M with multiple comorbidities including hyperlipidemia, super obesity, diabetes with neuropathy (hemoglobin A1c of 8.5%), sleep apnea on CPAP, history of pulmonary edema, venous insufficiency, lymphedema, cardiomyopathy, vitamin D deficiency, and history of wound healing problems presented for revision surgery today. He has a long-standing history of left ankle instability with reconstructive surgeries; his initial injury onset was around 2007. Most recently he had this external fixation device placed on 04/20/2018 and revisional surgery with bone biopsies (negative for osteomyelitis), debridement of non union of tibiotalar joint with application of bone marrow aspirate and bone graft augmented with growth factors in 07/2018. An updated recent CT scan demonstrated maintained good alignment however there was no osseous bridging noted at the tibiotalar space. There appears to be partial bridging at the subtalar joint arthrodesis site. The preoperative indications, planned procedure, possible benefits, risks, complications, and anticipated healing time management were discussed in detail with the patient. He understands and elects to proceed with surgery at this time. No guarantees were made. He understands complications and risks and include but are not limited to the following: Infection, swelling, scarring, pain, hardware failure, over under correction, continued delayed healing, allergic reaction, continued blood clot formation, loss of limb, function, life, chronic pain syndrome, and need for further surgery. I answered all his questions. His preoperative history and physical and clearance were reviewed. It is noted he was not cleared for general anesthesia and has had prior complications with anesthesia. His preoperative diagnostic data including EKG and labs were also reviewed. It is noted his vitamin D level is also now within the normal range. Procedure in detail: The patient was transferred to the operating room via cart and placed on the operating table in supine position. Final verification of the patient, surgery, and limb designation was performed via the timeout procedure. Regional posterior sciatica block was performed by the anesthesia team and additional light IV sedation was performed. Preoperative IV antibiotics were administered. The left lower extremity was prepped and draped in the usual aseptic manner. Local anesthetic was administered to the right tibia bone marrow aspirate site and also to the incision / surgical entry sites to the left lower extremity. The sites were tested with an instrument to ensure adequate anesthesia was achieved throughout the entire procedure. Attention was first directed to the left proximal leg as a following: A 1 cm linear incision was made just medial to the tibial tuberosity through the skin; confirmed with intraoperative flouroscopy. Blunt dissection was performed down to the tibia in which a bone marrow aspirate trocar was entered. Care was taken at this point and throughout the remainder of the surgery to identify, protect, and retract all neurovascular structures. Approximately 60 cc of bone marrow aspirate was extracted and further processed according to standard arteriocyte protocol. This was set aside later for application to the revisional arthrodesis sites as concentrated BMAC and further PPP for wound application. This small wound was copiously irrigated with normal saline and the skin was reapproximated with 3-0 nylon. An overlying compressive dressing was applied. Attention was next directed to the left lower extremity in which a 2 cm linear incision was made to the anterior medial aspect of the ankle and anterior lateral aspect of the ankle through the skin to gain access to the tibiotalar joint. Blunt dissection was performed down to the capsular layer and the capsule was entered. A small drill bit was used to percutaneous debride the tibiotalar joint space under flouroscopic guidance. Next, Augment reparative injection was next prepared according to standard protocol and 4.5 cc mixed with concentrated BMAC (3cc) was mixed and administered to the two sites in a rationed manner. Proper application and trajectory was confirmed with live intraoperative fluoroscopy. The skin was next reapproximated utilizing a vertical and horizontal retention suture technique. PPP was applied to the incision sites during the closure process. Next, attention was directed to compressing the tibiotalar joint space an additional 2 mm. The temporary rods were removed and gradual adjustment was performed according to Orthofix software calculation. All nuts and bolts were further tightened and noted to be stable. Additional rods (3) were applied for additional stability between the foot plate and distal tibia ring, and were also tightened. Intraoperative fluoroscopy was used to confirm unchanged ankle rectus arthrodesis and subtalar joint positions. Next, an additional first and fifth metatarsal half pin was applied for additional foot stability. It has been noted that inflammation and skin irritation is present due to micro motion from loose foot pin previously. This was also performed with intra operative guidance. Next, the ulcer site to the lateral incision was debrided in a subcutaneous manner utilizing a curette and a 15 blade. The pre-debridement measurements was 7.0 x 1.2 x 0.4 cm and post-debridement was 7.4 x 1.5 x 0.4 cm. The base is granular with a lot of hypertrophic granular tissue. No purulence, deep probing, or necrosis was noted. No infection was noted. Skin peeling sites were cleansed with normal saline and hydrogen peroxide. Remaining PPP and adaptic was applied to the ulcer site and was further covered with gauze. Betadine soaked gauze was applied to the pin sites and Kerlix were applied. A compressive Alfonso wrap dressing was applied to the leg and also to cover the external fixation device. Brisk capillary refill time to all digits of the left foot was noted and no pulsatile bleeding was appreciated. The left ankle remains in a clinical and radiographic rectus position. Final xrays were reviewed prior to leaving the OR which confirmed rectus ankle position and desired hardware adjustments were maintained. No acute injuries were noted.. After procedure: The patient tolerated the procedure well and was transported to the PACU with vital signs stable. He was advised to keep his dressings clean dry and intact. To maintain a strict nonweightbearing status. To ice and elevate for pain and inflammation management. He was advised to resume his Xarelto tomorrow. All of his postoperative orders were entered electronically. Formal postoperative x-rays will further be obtained. Post operative orders were entered electronically and he will be discharged home this evening. [facility]. Aubrie Valdez DPM, [facility] - Complications none - Admit VTE Documentation VTE Present on Admission: No VTE Mechan Device Prophylaxis: SCD's VTE Pharm Prophylaxis ordered?: Yes
== END 2018-10-19 18:47 | disposition home or self-care (01) ==
LOC: SDC 12:56 → AC 12:57
PROVIDERS: Family Provider Family Medicine; PCP Family Medicine; Referring Provider Podiatrist; Visit Provider Podiatrist
PROC: (CPT 27814; principal; 2018-10-19 14:15)
DX: M96.0 Pseudarthrosis after fusion or arthrodesis (principal); Y83.8 Other surgical procedures as the cause of abnormal reaction of the patient, or of later complication, without mention of misadventure at the time of the procedure; E11.42 Type 2 diabetes mellitus with diabetic polyneuropathy; E55.9 Vitamin D deficiency, unspecified; I89.0 Lymphedema, not elsewhere classified; M25.372 Other instability, left ankle; E11.622 Type 2 diabetes mellitus with other skin ulcer; L97.322 Non-pressure chronic ulcer of left ankle with fat layer exposed; E78.5 Hyperlipidemia, unspecified; E66.01 Morbid (severe) obesity due to excess calories; Z68.43 Body mass index [BMI] 50.0-59.9, adult
CPT/HCPCS: 20693; 27724; 38206; 64445; 36415; 73610; 73630; 76000; 82306; 82962; C1713; J7120; J2405

== ENCOUNTER → 2018-12-24 | Outpatient (CLI) | payer SELFPAY ==
[2018-10-19 13:21] VITALS: BMI 50.7
[2018-12-24 15:41] LABS: Absolute Lymphocyte Count 0.78 X10^3/ul (0.83-4.51); Absolute Neutrophil Count 3.3 X10^3/uL (2.0-7.7); Basophil# 0.01 X10^3/uL; Basophil% 0.2 % (0-1); Eosinophil# 0.15 X10^3/uL; Eosinophils% 3.2 % (0-5); Hemoglobin 10.3 g/dl (13.0-16.5); Lymphocyte # 0.78 X10^3/ul (4.0); Lymphocyte % 16.4 % (19-41); Mean Corp Hgb Conc 30.3 g/gl (32-36); Mean Corpuscular Hgb 25.5 pg (27.0-32.0); Mean Corpuscular Volume 84.2 fL (80-94); Mean Platelet Vol. 10.2 fl (6.2-12.0); Monocyte% 10.5 % (0-10); Neutrophil % 69.5 % (47-70); Platelet Count 244 K/mm3 (150-450); RBC Distribution Width CV 15.5 % (11.6-14.6); RBC Distribution Width SD 46.7 fl (35.1-43.9); Red Blood Count 4.04 M/mm3 (4.6-6.2); White Blood Count 4.8 K/mm3 (4.4-11.0)
[2018-12-24 15:42] LABS: ALB/GLOB Ratio 0.5 RATIO (0.9-2.4); AST(SGOT) 11 U/L (15-37); Alanine Aminotransfer ALT/SGPT 11 U/L (16-61); Albumin, Serum 2.7 g/dL (3.2-5.0); Alkaline Phosphatase 83 U/L (45-117); Anion Gap 6 (5-15); BUN 25 mg/dL (7-18); BUN/Creat Ratio 22.9 RATIO (10-20); Calcium,Total 8.6 mg/dL (8.5-10.1); Chloride 102 mmol/L (98-107); Creatinine, Serum 1.09 mg/dL (0.70-1.30); EST Glomerular Filtration Rate 72 mL/min (>60); Est Glom Filt Rate - Afr Amer 87 mL/min (>60); Globulin 5.1 g/dL (2.2-4.2); Glucose 100 mg/dL (74-106); Protein, Total 7.8 g/dL (6.4-8.2); Sodium Level 140 mmol/L (136-145)
[2018-12-24 15:44] LABS: POSITIVE COUNT NO; POSITIVE DIFFERENTIAL NO; POSITIVE MORPHOLOGY NO
== END | disposition home or self-care (01) ==
LOC: MTLAB 13:53
PROVIDERS: Family Provider Family Medicine; PCP Family Medicine; Referring Provider Family Medicine; Visit Provider Family Medicine
DX: Z01.818 Encounter for other preprocedural examination (principal)
CPT/HCPCS: 36415; 80053; 85025

== ENCOUNTER 2019-01-04 11:15 | Day surgery (SDC) | payer SELFPAY ==
[2018-10-19 13:21] VITALS: BMI 50.7
[2019-01-04] VITALS (8 sets, daily range): BP systolic 117–126; BP diastolic 60–75; PULSE 67–74; RESP 16–17; TEMP 36.1–36.5; O2SAT 92–99; BMI 48.1
--- NOTE | 2019-01-04 07:00 | RAD_ITS ---
STUDY: X-RAY - LEFT FOOT CLINICAL: Male, 63 years old. Hardware removal TECHNIQUE: 4 intraoperative fluoroscopic view(s) of the foot. COMPARISON: 10/19/2018 FINDINGS: Fluoroscopic guidance was provided during hardware removal procedure. Correlation with the operative report is recommended. RAD/Foot 2 Views IMPRESSION: As above. Electronically Signed: Ubaldo Chauhan, at 15:10 EDT Tel , Service support ,
--- NOTE | 2019-01-04 07:44 | RAD_ITS ---
STUDY: X-RAY - LEFT ANKLE REASON FOR EXAM: Male, 63 years old. Hardware removal TECHNIQUE: 13 intraoperative fluoroscopic view(s) of the ankle. COMPARISON: 10/19/2018. FINDINGS: Fluoroscopic guidance was provided during removal of external fixation hardware. Correlation with the operative report is recommended. RAD/Ankle min 3 Views IMPRESSION: As above. Electronically Signed: Ubaldo Chauhan, at 15:06 EDT Tel , Service support ,
[2019-01-04 12:16] LABS: Bedside Glucose 117 mg/dL (70-110)
[2019-01-04] MEDS: Bupivacaine Mpf 0.5% 30 ML VIAL (14:20)
--- NOTE | 2019-01-04 14:38 | DCINST_ITS ---
Discharge Diet: Carb Control Diet Discharge Activity: May Not Drive, May Not Shower, - - use wheelchair Weight Bearing Status: No weight bearing Keep extremity elevated above heart level: Left Leg Call your doctor if your incision/area has: Continuous Slow Oozing, Sudden Increased Bleeding, Increased Pain/ Swelling, Increased Redness, Foul Smelling Discharge, Swelling at the incision site Call your doctor if you observe: Fever of 101 or Higher, Shortness of breath, Chest pain, Calf discomfort, Uncontrolled pain Cleanse incision/area with: Keep Dressing Clean & Dry Allergies/Adverse Reactions: Allergies No Known Allergies Allergy (Verified 01/04/19 11:35) Medications to take at Discharge Aspirin 325 mg PO DAILY@0800 01/18/17 Carvedilol [Coreg (Beta Ez)] 25 mg PO BID 01/18/17 Furosemide 40 mg PO DAILY 01/18/17 Insulin NPH Hum/Reg Insulin Hm [Humulin 70-30 Vial] 10 unit SQ BREAKFAST 01/18/17 hydrALAZINE [Apresoline] 25 mg PO BID 01/18/17 glipiZIDE [Glucotrol] 5 mg PO BID 07/18/18 Bone And Tissue 3 cap PO BID 10/15/18 Calcium (Elemental) [Os-Reginaldo 500] 500 mg PO DAILY@0800 10/15/18 Cholecalciferol (Vitamin D3) [Vitamin D3] 2,000 unit PO DAILY 10/15/18 Rivaroxaban [Xarelto] 15 mg PO DAILY 12/27/18 Primary Care Physician: Dawson Olsen DO [Primary Care Provider] - Test Results: Test results from this visit will be discussed in further detail at your follow- up appointment, if applicable. Please Follow Up With: Aubrie Valdez DPM When: on Monday at [facility]. Call [phone] sooner if concerns. Proposed Discharge Date: 01/04/19
--- NOTE | 2019-01-04 14:40 | PCM.OPRPT ---
Problem List (1) Pseudarthrosis after fusion or arthrodesis Status: Chronic (2) Type 2 diabetes mellitus with diabetic polyneuropathy Status: Chronic (3) Left ankle instability Status: Chronic (4) Ulcer of left lower extremity with fat layer exposed Status: Chronic (5) Arthrodesis status Status: Chronic Report of Operation Date of Procedure: 01/04/19 Pre-Operative Diagnosis: non union left ankle arthrodesis. left ankle ulcer with fat layer exposed. s/p external fixation device placement Post-Operative Diagnosis: non union left ankle arthrodesis. left ankle ulcer with fat layer exposed. s/p external fixation device placement Surgery/Procedure Performed:: removal of external fixation device, left lower extremity. debridement of left lower extremity ulcer (subcutaneous excisional). casting procedure for future [id number] Description of Surgical Findings:: Hemostasis: Controlled throughout the entire procedure, no tourniquet utilized Estimated blood loss: Less than 100 mL Materials: None Applications: None Specimens: None The patient tolerated the procedure anesthesia well. He was transported to the PACU with vital signs stable vascular status intact to left lower extremity. X-rays were obtained prior to leaving the operating room demonstrating removal of all external fixation wires, half pins, and orthofix hexapod external fixation device. The ankles was in a rectus position with radiographic consolidation at the arthrodesis site. No acute injuries are noted. He will be discharged home later today. His postoperative orders were entered electronically. international marketing intern: none - Cell Efficiency Supervisor: Jb Blandon, PGY 2. Surgeon: Aubrie Valdez DPM Type of Anesthesia:: Local MAC - Intraoperative: 8 cc of one-to-one mixture of 0.5% Marcaine plain and 1% lidocaine plain Specimen's removed: None Estimated Blood Loss (mL): < 100 mL Description of Procedure: Indication: This 63-year-old male with significant past medical history of uncontrolled diabetes, hypertension, hyperlipidemia, congestive heart failure, sleep apnea, super obesity, history of anesthesia complications, lymphedema, venous insufficiency, chronic nonhealing ulcers, history of vitamin D deficiency and nonhealing of previous arthrodesis has been treated. He had a complicated conservatively and surgically managed treatment course for ankle instability with an onset of over 8 years ago. He has been treated at various facilities by numerous providers. His most current treatment course has included the application of an external fixation device placed on his left lower extremity with subsequent multiplanar gradual deformity correction. The most recent deformity correction focused on compression of the arthrodesis site after percutaneous debridement and application of growth factor bone graft and bone marrow aspirate was applied. There is radiographic consolidation that has been progressive at the ankle and subtalar joints. He has had serial CT scans performed with lack of osseous union. He has had the external fixation device in place for an extended period of time and the external fixation device will be removed regardless of the amount of consolidation today per patient tolerance. His case is complicated with his diabetes, and ability to remain nonweightbearing, lymphedema, venous insufficiency, and wound complications. His vascular status appears to be grossly intact. He does have ongoing venous insufficiency and lymphedema. He also has congestive heart failure which contributes to his lower extremity edema flareups. He does not have local signs of infection at this time. The ankle remains in a rectus position. The preoperative indication, planned procedure, possible benefits, risks, complications, and anticipated healing time is were discussed in detail the patient. He understands and elects to proceed with surgery at this time. The informed surgical consent was signed. No guarantees were made. He understands risks and complications may include but are not limited to the following: swelling, pain, chronic instability, delayed or nonhealing of the arthrodesis site or wounds, need for revisional surgery, loss of limb, function, life, infection, blood clots, allergic reaction. His medical clearance for the procedure under very light sedation and local anesthetic was provided by Dr. Richards. His preoperative diagnostic data was also reviewed. I answered all his questions. Procedure in detail: The patient was transported to the operating room via cart and placed on the operating table in supine position. Final verification of the patient, surgery, limb designation was performed via the timeout procedure. A well-padded pneumatic left thigh tourniquet was placed although this was not utilized. The left lower extremity is prepped and draped in the usual aseptic manner. Preoperative IV antibiotics were administered. The procedure began with the following: Attention was first directed to the left lower extremity in which all nuts and bolts were loosened with wrenches. All K wires and half pins were subsequently removed. The tibial rings with connected struts and the rods were also removed with out complication. Next, the leg was thoroughly scrubbed with surgical scrub Betadine brushes to remove lichenification, skin peeling, any fibrous tissue. Curettes were used to debride the wire and half pain sites. It is noted there was no purulence, erythema, streaking, odor, infection, or deep necrosis noted. The versa jet was also set on setting 8 was used to perform excisional subcutaneous debridement of the lateral ankle ulcer site. The pre-debridement measurement was 9.2 x 8.0 x 0.3 cm. The post debridement measurement was 10 x 8.5 x 0.4 cm. Excisional subcutaneous debridement was performed to remove devitalized subcutaneous tissue, biofilm, slough, and fibrous tissue. Pressure was applied to maintain hemostasis. Copious saline irrigation was performed. Brisk capillary refill time was noted to all digits of the left lower extremity throughout the entire procedure and after the procedure. No pulsatile bleeding was noted either. Adaptic was next applied to the laterally debrided ulcer site and this was further secured with gauze and Kerlix. Postoperative x-rays were obtained with the ankle and subtalar joint in a rectus position. Progressive osseous consolidation is noted compared to prior x-rays. No passive motion was available at the ankle or subtalar joint clinically. No acute injuries were radiographically noted. All wire and pin removal sites were without acute injuries as well radiographically. No soft tissue emphysema or foreign bodies were identified. Next, a specialist from [employer] [facility] presented to cast his left lower extremity for his future [place] walker. The patient has a previous understanding that adjustments will be needed as his edema fluctuates and as becomes more weightbearing. This is a critical timeframe for him because the external fixation device was recently removed and he is unable to wear other protective devices. The [place] walker will be made as soon as possible to reduce this risk. This was performed according to standard protocol. After this was completed, additional postoperative dressing of abdominal pads, Kerlix, and Alfonso wrap were applied in a multilayer compression manner. Next, two posterior mold splints were applied with the ankle in this stable and rectus maintained position. This was further secured with Alfonso wraps again. After procedure: The patient tolerated the procedure and anesthesia well. He was transported to the PACU with vital signs stable and vascular status intact to the left lower extremity. He was advised to maintain a strict nonweightbearing status. To elevate for edema and pain management. He was provided with a very small amount of postoperative pain medication (norco), and was advised on safe and proper use. To keep the dressing and splint clean, dry, and intact until follow-up next week. He was reassured no local signs of infection noted. Postoperative x-rays were reviewed as noted. He will be discharged home later today upon continued stability. Postoperative orders were entered electronically. He will be called when his [place] walker device is completed. Aubrie Valdez DPM, [facility] - Complications none - Admit VTE Documentation VTE Present on Admission: No VTE Mechan Device Prophylaxis: SCD's VTE Pharm Prophylaxis ordered?: Yes
[2019-01-04] MEDS: HYDROcodone Bitartrate/Apap 5/325 Tablet PO (16:07)
== END 2019-01-04 17:00 | disposition home or self-care (01) ==
LOC: SDC 11:17 → AC 11:18
PROVIDERS: Family Provider Family Medicine; PCP Family Medicine; Referring Provider Podiatrist; Visit Provider Podiatrist
PROC: (CPT 20694; principal; 2019-01-04 12:45)
DX: M96.0 Pseudarthrosis after fusion or arthrodesis (principal); Y83.8 Other surgical procedures as the cause of abnormal reaction of the patient, or of later complication, without mention of misadventure at the time of the procedure; L97.322 Non-pressure chronic ulcer of left ankle with fat layer exposed; E11.622 Type 2 diabetes mellitus with other skin ulcer; E11.42 Type 2 diabetes mellitus with diabetic polyneuropathy; M25.372 Other instability, left ankle; Z79.899 Other long term (current) drug therapy; Z79.4 Long term (current) use of insulin; I10 Essential (primary) hypertension; Z79.82 Long term (current) use of aspirin
CPT/HCPCS: 01462; 20694; 73610; 73620; 76000; 82962; J7120

== ENCOUNTER 2024-03-06 08:28 | Inpatient (IN) | payer SELFPAY ==
[2024-03-06] VITALS (12 sets, daily range): BP systolic 116–137; BP diastolic 55–79; PULSE 56–86; RESP 12–35; TEMP 35.7–36.6; O2SAT 81–100; BMI 48.9; BMI 50.8
--- NOTE | 2024-03-06 08:43 | RAD_ITS ---
STUDY: X-RAY CHEST REASON FOR EXAM: Male, 68 years old. Respiratory failure, bilateral rales TECHNIQUE: Single AP portable view of the chest. COMPARISON: Comparison is made with prior study April 01, 2017. FINDINGS: EKG electrodes are seen. Gastric congestion and CHF more prominent in the right hemithorax. There is no demonstrated pleural abnormality. There is mild cardiac enlargement. Normal mediastinum and pilar. Normal visualized pulmonary arteries. Normal visualized aortic arch and descending thoracic aorta. There are diffuse degenerative changes of the visualized thoracic spine. Normal visualized ribs, clavicles, and shoulders. There is no demonstrated abnormality of the visualized soft tissue structures of the upper abdomen. RAD/Chest 1 View (Portable) IMPRESSION: Vascular congestion and CHF. Worsened the right hemithorax. Electronically Signed: Markell Osman MD at 9:10 EDT ,
--- NOTE | 2024-03-06 08:43 | EKG12_ITS ---
Test Reason : SOB Blood Pressure : / mmHG Vent. Rate : 087 BPM Atrial Rate : 087 BPM P-R Int : 194 ms QRS Dur : 162 ms QT Int : 410 ms P-R-T Axes : 029 -50 106 degrees QTc Int : 493 ms Sinus rhythm with frequent Premature ventricular complexes Left axis deviation Left bundle branch block Abnormal ECG Confirmed by Govind Hagan ([id number]), content editor ISSA RECINOS ([id number]) on 03/11/2024 10:19:34 AM Referred By: TB/UG Confirmed By:Govind Hagan
--- NOTE | 2024-03-06 08:46 | EX.ED.CRITCA ---
HPI History of Present Illness Chief Complaint: Shortness of Breath Detail of Chief Complaint: Shortness of breath Informant: patient Onset/Context/Timing Onset: Days (Became worse Monday, March 04) Context: Gradual Onset Timing: Continuous Quality: Shortness of breath, orthopnea, slight chest discomfort Location: Anterior chest pressure Current Severity: Severe Maximum Severity: Severe Worsened by: Activity and lying flat Relieved by: Nothing Associated Symptoms Associated Symptoms: abdominal pain, chest pain (Anterior chest discomfort/tightness), chills, cough (Cough with thick white sputum), fever, vomiting, diarrhea, palpitations and suicidal thoughts Narrative Narrative: Patient is a 68-year-old male who presents with increasing shortness of breath that started Monday. He is normally on 5 L by nasal cannula. He does have history of obstructive sleep apnea, chronic respiratory failure with hypercapnia and hypoxia, dilated cardiomyopathy, type 2 diabetes, hypertension and hyperlipidemia. He also has history of thrombocytopenia anemia. He denies fever or chills. He states he has been sleeping with 2 pillows on his left side. He has a BiPAP machine that he uses at night. He is on continuous oxygen at 5 L. He denies headache, visual, ocular auditory symptoms. He states it is not normal for him to cough up colored sputum. He denies abdominal pain, nausea, vomit or diarrhea. He has chronic swelling of his lower extremities. He denies urologic symptoms. Prior similar symptoms: Yes Recent Illness/Hospitalization: No [facility] Medical History Walking difficulty due to ankle and foot Wound healing, delayed Vitamin D deficiency Pulmonary embolism Congestive heart failure Aortic valve disease Lymphedema Venous insufficiency of both lower extremities Sleep apnea Super obesity Hyperlipidemia Home Medications ?Medication ?Instructions ?Recorded ?Last Taken ?Type carvedilol 25 mg tablet 25 mg PO BID 01/18/17 10/19/18 History glipizide 5 mg tablet 5 mg PO DAILY 07/18/18 Unknown History Bone And Tissue 3 cap PO BID 10/15/18 Unknown History calcium carbonate (Oyster Shell 500 mg PO DAILY@0800 10/15/18 Unknown History Calcium 500) cholecalciferol (vitamin D3) 50 2,000 unit PO DAILY 10/15/18 Unknown History mcg (2,000 unit) capsule (Vitamin D3) aspirin 81 mg capsule 81 mg PO DAILY 03/06/24 Unknown History bumetanide 2 mg tablet 2 mg PO BID 03/06/24 Unknown History hydralazine 50 mg tablet 50 mg PO TID 03/06/24 Unknown History insulin aspart U-100 .ROUTE QHS 03/06/24 Unknown History insulin aspart U-100 5 unit subcut DAILY 03/06/24 Unknown History Allergy/AdvReac Type Severity Reaction Status Date / Time No Known Allergies Allergy Verified 01/04/19 11:35 Social History (Updated 03/06/24 @ 08:[address] Tone Olivier MD) household members: none Smoking Status: Never smoker ROS ROS ED Constitutional Constitutional ED: Reports sweats; Denies chills, fever(s), subjective or weight loss Eyes Eyes: Denies blurry vision or change in vision ENT ENT ED: Denies ear pain, rhinorrhea or sore throat Cardiovascular Cardiovascular: Reports chest pain and orthopnea; Denies palpitations, paroxysmal nocturnal dyspnea or racing heartbeat Respiratory/Chest Respiratory/Chest: Reports cough, dyspnea, dyspnea on exertion, orthopnea and sputum; Denies paroxysmal nocturnal dyspnea Gastrointestinal Gastrointestinal: Denies abdominal pain, nausea or vomiting Genitourinary Genitourinary ED: Denies dysuria, hematuria or urinary frequency Musculoskeletal Musculoskeletal: Denies arthralgias, back pain, myalgias or neck pain Integumentary Denies rash Neurologic Neurologic: Reports weakness; Denies headache(s) or paresthesias Psychiatric Psychiatric: Denies anxiety Endocrine Endocrinology: Denies polydipsia, polyphagia or polyuria Hematologic/Lymphatic Hematologic/Lymphatic: Denies easy bleeding or easy bruising Allergic/Immunologic Allergic/Immunologic ED: Denies mouth swelling or tongue swelling EXAM Physical Exam Const Vital Signs: 03/06/24 08:29 03/06/24 08:36 03/06/24 08:36 Temperature 96.3 F L Temperature Source Temporal Pulse Rate 86 86 Respiratory Rate 27 H 35 H Respiratory Effort Short of Breath Respiratory Depth Shallow Respiratory Pattern Tachypnea Blood Pressure 131/79 H Blood Pressure Mean 96 Pulse Ox 81 87 Oxygen Delivery Method Nasal Cannula High Flow Non-Rebreather @ 15L/min Oxygen Flow Rate (L/min) 5 10 10 Fraction of Inspired Oxygen (FIO2) 03/06/24 08:48 03/06/24 08:48 03/06/24 09:31 Temperature Temperature Source Pulse Rate 75 63 Respiratory Rate 30 H 14 Respiratory Effort Respiratory Depth Respiratory Pattern Normal Blood Pressure 116/55 L Blood Pressure Mean 75 Pulse Ox 99 99 95 Oxygen Delivery Method Bi-pap Bi-pap Oxygen Flow Rate (L/min) Fraction of Inspired Oxygen (FIO2) 50 Positive well nourished and well developed Constitutional Narrative: Patient is in respiratory distress with use of accessory muscles. He is diaphoretic. He appears cyanotic with central cyanosis as well as acrocyanosis. General Appearance ED: well developed; Negative for pallor HEENT HEENT Narrative: Posterior pharynx is normal. normocephalic, atraumatic and cyanosis of lips/distal nose; Negative for tenderness Eyes PERRL and EOMs intact bilaterally General Eye ED: Negative for pale conjunctiva or scleral icterus Neck full ROM, no lymphadenopathy and supple Neck Narrative: Unable to determine if patient has JVD based on body habitus. Chest Wall Chest Narrative: Unremarkable Resp Resp Narrative: Respiratory distress with use of accessory muscles. Patient has conversational dyspnea. Patient is cyanotic on 5 L. Patient has rales bilaterally. There is no expiratory wheezing. Cardio regular rate, regular rhythm, S1 normal heart sound, S2 normal heart sound and no murmurs Cardio Narrative: Heart tones are distant. This may be due to body habitus. GI non-tender, non-distended and no masses Back/Spine no CVA tenderness Extremity Extremity Narrative: Venous stasis dermatitis bilaterally no evidence of cellulitis. Neuro oriented x3 and CN's II-XII intact bilaterally Neuro Narrative: Patient is awake but not alert. Concern for hypercapnia. Sensorium / Orientation: Negative for alert Psych mental status grossly normal Skin General Skin Exam: Negative for jaundice or pallor Lesions: no lesions Rashes: no rashes MDM MDM MDM Narrative Medical decision making narrative: Differential diagnosis would include pneumonia, congestive heart failure, cardiac ischemia,. Because of his depressed level of consciousness will obtain ABG to evaluate for hypercapnia and acid-base status. Chest x-ray was obtained to determine if patient is in heart failure versus pneumonia. Patient had a CBC to assess white count and H&H. Comprehensive metabolic panel and lactate to assess for endorgan dysfunction. Patient's lactate may be elevated due to hypoxia, type A. EKG was obtained. EKG reveals a sinus rhythm with frequent premature beats. He does have evidence of a left bundle branch block and left axis. There is no acute ischemic changes noted. Respiratory place patient on 10 L of oxygen. Since patient is somnolent diaphoretic with labored breathing BiPAP was ordered. Lab Data Attestation: I reviewed the patient's lab results. Lab results narrative: CBC is remarkable for mild shift otherwise unremarkable. Comprehensive metabolic panel is marked for BUN of 76 and a creatinine of 1.74. BUN to creatinine ratio is 44:1. Estimated GFR is 41. Total bili slightly elevated. BNP is 1795. Troponin is elevated 75. Labs: Laboratory Results - last 24 hr 03/06/24 08:40 WBC 6.2 RBC 5.07 Hgb 14.5 Hct 49.1 MCV 96.8 H MCH 28.6 MCHC 29.5 L RDW Std Deviation 54.7 H RDW Coeff of Paddy 15.4 H Plt Count 148 L MPV 11.3 Immature Gran % (Auto) 0.300 Neut % (Auto) 80.8 H Lymph % (Auto) 9.5 L [place] % (Auto) 8.7 Eos % (Auto) 0.2 Baso % (Auto) 0.5 Absolute Neuts (auto) 5.0 Absolute Lymphs (auto) 0.59 L Nucleated RBC % 0 Sodium 138 Potassium 4.4 Chloride 97 L Carbon Dioxide 33.0 H Anion Gap 8 BUN 76 H Creatinine 1.74 H Estim Creat Clear Calc 59.07 Est GFR (MDRD) Af Amer 50 L Est GFR (MDRD) Non-Af 41 L BUN/Creatinine Ratio 43.7 H Glucose 197 H Lactic Acid 0.7 Calcium 8.6 Total Bilirubin 1.20 H AST 16 ALT 12 L Alkaline Phosphatase 80 Troponin I High Sens 75 B-Natriuretic Peptide 1794.5 H Total Protein 8.1 Albumin 3.0 L Globulin 5.1 H Albumin/Globulin Ratio 0.6 L ABG Data Attestation: I personally reviewed and interpreted this ABG as follows: Interpretation: ABG reveals acute on chronic CO2 retention and acute on chronic hypoxemia. Respiratory therapy was asked to repeat ABG 45 minutes after patient was on BiPAP. ABG results: ABG 03/06/24 03/06/24 08:57 09:04 Specimen Type ART ART Sample Site R Radial Not entered pH 7.30 L 7.31 L Bicarbonate Actual 34.9 H 32.8 H Total CO2 37 35 Base Excess 9 H 7 H O2 Saturation 98 99 O2 % 10.0 ABG pCO2 70.7 H* 65.2 H ABG pO2 121 H 132 H Tristen Test Positive O2 Delivery Device HFNC Not entered Vent Mode Not entered Not entered Crit Call To/Read Back Yes Blood Gas Notified Whom olivier Blood Gas Notified Time 08:59:31 Radiography Chest X-Ray - ED: 1 View and Read by ED Physician (Patient is borderline cardiomegaly. He has evidence of significant CHF. Findings are worse on the right. Film is slightly rotated.) Diagnostic Testing: Clinical Impression(s) from Imaging Studies Chest X-Ray 03/06/24 08:43 IMPRESSION: Vascular congestion and CHF. Worsened the right hemithorax. Electronically Signed: Markell Osman MD at 9:10 EDT , Rhythm Strip Rhythm Strip: Sinus Rhythm Rate: 85 Ectopy: PVC(s) EKG Initial EKG: Attestation: I personally reviewed and interpreted this EKG as follows: Interpretation: Sinus Rhythm (There are frequent unifocal premature beats noted. [place] to the left. There is evidence of a left bundle branch block. GA interval is under 94 ms. Cures duration under 62 ms. QT duration 410 ms.) Management Discussion w/another healthcare provider: Hospitalist (Spoke with Dr. Bradley. Patient will be a full admission to PCU.) Treatment and Re-Evaluation Narrative: Clinically patient is fluid overloaded. Review of his medications reveals that he is on a diuretic. Patient was reassessed at 09. Patient's breathing has improved markedly. He is no longer cyanotic or diaphoretic. He is now able to talk in full sentences. He states he feels significantly better. Critical Care Time Critical Care Time: Yes Critical care time (excluding procedures): 30-74 minutes (31), Including time spent: (History, physical, documentation, treatment of heart failure/respiratory failure with hypercapnia, review of prior records, independent interpretation of laboratory results, chest x-ray), Discussing w/Patient &/or Family/Research Management Associate (Patient was informed of concerns, laboratory tests and need for admission), Discussing w/Consultants and Arranging Admission or Transfer Discharge Plan Dx/Rx/DC Orders Clinical Impression: Acute on chronic respiratory failure with hypoxia and hypercapnia, CHF exacerbation, HTN (hypertension), HLD (hyperlipidemia), Dilated cardiomyopathy, Acute kidney injury superimposed on chronic kidney disease, Controlled type 2 diabetes mellitus with hyperglycemia, BMI 45.0-49.9, adult Disposition Disposition: Acute Care [facility]
[2024-03-06 08:56] LABS: Absolute Lymphocyte Count 0.59 X10^3/uL (0.83-4.51); Basophil# 0.03 X10^3/uL; Basophil% 0.5 % (0-1); Eosinophil# 0.01 X10^3/uL; Eosinophils% 0.2 % (0-5); Hematocrit 49.1 % (40-54); Hemoglobin 14.5 g/dL (13.0-16.5); Lymphocyte # 0.59 X10^3/ul (0.83-4.51); Lymphocyte % 9.5 % (19-41); Mean Corp Hgb Conc 29.5 g/dL (32-36); Mean Corpuscular Hgb 28.6 pg (27.0-32.0); Mean Corpuscular Volume 96.8 fL (80-94); Mean Platelet Vol. 11.3 fl (6.2-12.0); Monocyte# 0.54 X10^3/uL; Monocyte% 8.7 % (0-10); NRBC Flagged by Analyzer 0 % (0-5); Neutrophil # 5.04 X10^3/uL (2.7-7.7); Neutrophil % 80.8 % (47-70); POSITIVE DIFFERENTIAL YES; Platelet Count 148 K/mm3 (150-450); RBC Distribution Width CV 15.4 % (11.6-14.6); RBC Distribution Width SD 54.7 fl (35.1-43.9); Red Blood Count 5.07 M/mm3 (4.6-6.2); White Blood Count 6.2 K/mm3 (4.4-11.0)
[2024-03-06 09:01] LABS: Allen Test Positive; Base Excess 9 mmol/L (-2 to +2); Bicarbonate 34.9 mmol/L (22-26); Blood Gas Specimen Type ART; Mode Not entered; O2 Delivery Device HFNC; PO2 121 mmHG (75-100); SITE R Radial; SO2 98 % (95-99); Total Carbon Dioxide 37 mmol/L; pCO2 70.7 mmHg (35-45)
[2024-03-06 09:14] LABS: ALB/GLOB Ratio 0.6 RATIO (0.9-2.4); AST(SGOT) 16 U/L (15-37); Alanine Aminotransfer ALT/SGPT 12 U/L (16-61); Alkaline Phosphatase 80 U/L (45-117); Anion Gap 8 (5-15); BUN 76 mg/dL (7-18); BUN/Creat Ratio 43.7 RATIO (10-20); Calcium,Total 8.6 mg/dL (8.5-10.1); Chloride 97 mmol/L (98-107); Creatinine, Serum 1.74 mg/dL (0.70-1.30); EST Glomerular Filtration Rate 41 mL/min (>60); Est Glom Filt Rate - Afr Amer 50 mL/min (>60); Estimated Creatinine Clearance 59.07 ml/min; Globulin 5.1 g/dL (2.2-4.2); Glucose 197 mg/dL (74-106); Potassium 4.4 mmol/L (3.5-5.1); Protein, Total 8.1 g/dL (6.4-8.2); Sodium Level 138 mmol/L (136-145); Troponin-I HS (w/2H Reflex) 75 pg/mL (3.0-78.0)
[2024-03-06 09:22] LABS: BNP,B-Type NATRIURETIC PEPTIDE 1794.5 pg/mL (0-100)
[2024-03-06 09:33] LABS: Lactic Acid 0.7 mmol/L (0.4-1.9)
--- NOTE | 2024-03-06 09:44 | HP.PCM.HOS_ITS ---
HPI - General General Date of Admission: 03/06/24 Date of Service: 03/06/24 Chief Complaint: Worsening shortness of breath HPI Narrative SHEREE MUNIZ, is a 68 M who presented to [facility] ED on 03/06/2024 with worsening shortness of breath. Saw patient at bedside in the ED. Patient was on BiPAP when I saw him and was breathing fairly comfortably. Stated he was breathing more comfortably now compared to when he came into the ED. Patient has history significant for morbid obesity, ANDRADE and hypertension. Notably has reported history of dilated cardiomyopathy; however last echo from 2017 in our system shows an EF of 50 to 55% with moderate concentric LV hypertrophy and only mild hypokinesis of the left ventricle. Patient states he did not wear home oxygen until a few months ago. States that he [place] and had significant difficulty with breathing then, and when he returned home his oxygen levels were tested and he was started on home oxygen. He has been wearing 5 L nasal cannula at baseline. States that he has had worsening shortness of breath over the past several days. Has needed to sleep propped up with more pillows at night. Chest x-ray in ED showed vascular congestion with CHF. BNP 1794. Was initially requiring 10 L high flow nasal cannula to maintain adequate oxygen saturations and to continue to have some increased work of breathing. Was then placed on BiPAP with improvement in oxygenation and and work of breathing. Patient has chronic lower extremity swelling and states he does not feel like it is much worse than his normal. Reports taking his home medications as prescribed. Does report having decreased urine output recently. Lives at home with his and typically is able to do most things for himself around the house. No other acute concerns at this time. Will be admitted for further management. FORMERLY [facility], [facility]–1983 Medical History Walking difficulty due to ankle and foot Wound healing, delayed Vitamin D deficiency Pulmonary embolism Congestive heart failure Aortic valve disease Lymphedema Venous insufficiency of both lower extremities Sleep apnea Super obesity Hyperlipidemia Home Medications ?Medication ?Instructions ?Recorded ?Last Taken ?Type carvedilol 25 mg tablet 25 mg PO BID blood pressure 01/18/17 10/19/18 History glipizide 5 mg tablet 5 mg PO DAILY diabetes 07/18/18 Unknown History aspirin 81 mg capsule 81 mg PO DAILY preventative 03/06/24 Unknown History bumetanide 2 mg tablet 2 mg PO BID water pill 03/06/24 Unknown History hydralazine 50 mg tablet 50 mg PO TID blood pressure 03/06/24 Unknown History insulin aspart U-100 5 unit subcut DAILY 03/06/24 Unknown History insulin human U-100 NPH-regulr 5 unit subcut BID diabetes 03/06/24 Unknown History 70-30 mix 100 unit/mL subcutaneous susp (Humulin 70/30 U-100 Insulin) Allergy/AdvReac Type Severity Reaction Status Date / Time No Known Allergies Allergy Verified 01/04/19 11:35 Social History (Updated 03/06/24 @ 10:48 by Arlene Holguin) household members: none Smoking Status: Never smoker ROS Constitutional Constitutional: Reports fatigue; Denies chills, fever(s) or weakness Eyes Eyes: Denies change in vision Cardiovascular Cardiovascular: Reports dyspnea on exertion, edema and orthopnea; Denies chest pain Respiratory/Chest Respiratory/Chest: Reports shortness of breath with exertion; Denies cough, shortness of breath at rest or wheezing Gastrointestinal Gastrointestinal: Denies abdominal pain, constipation, diarrhea, nausea or vomiting Genitourinary Genitourinary: Denies dysuria Musculoskeletal Musculoskeletal: Denies arthralgias or myalgias Neurologic Neurologic: Denies dizziness, focal weakness or headache(s) Vital Signs Vital Signs Vital Signs: 03/06/24 08:29 03/06/24 08:36 03/06/24 08:36 Temperature 96.3 F L Temperature Source Temporal Pulse Rate 86 86 Respiratory Rate 27 H 35 H Respiratory Effort Short of Breath Respiratory Depth Shallow Respiratory Pattern Tachypnea Blood Pressure 131/79 H Blood Pressure Mean 96 Pulse Ox 81 87 Oxygen Delivery Method Nasal Cannula High Flow Non-Rebreather @ 15L/min Oxygen Flow Rate (L/min) 5 10 10 Fraction of Inspired Oxygen (FIO2) 03/06/24 08:48 03/06/24 08:48 03/06/24 09:31 Temperature Temperature Source Pulse Rate 75 63 Respiratory Rate 30 H 14 Respiratory Effort Respiratory Depth Respiratory Pattern Normal Blood Pressure 116/55 L Blood Pressure Mean 75 Pulse Ox 99 99 95 Oxygen Delivery Method Bi-pap Bi-pap Oxygen Flow Rate (L/min) Fraction of Inspired Oxygen (FIO2) 50 Weight Weight: 154.811 kg Body Mass Index (BMI) 48.9 Physical Exam Const alert, oriented x3 and no apparent distress Constitutional Narrative: Pleasant elderly male, morbidly obese, mildly fatigued appearing, breathing comfortably on BiPAP, otherwise mentating appropriately and answering questions appropriately, in no acute distress. General Appearance: cooperative and comfortable HEENT normocephalic, head/scalp atraumatic, hearing grossly normal bilaterally and nasal mucous membranes and turbinates normal Eyes PERRL, EOMs intact bilaterally and conjunctivae normal Neck full ROM Chest inspection of chest normal Resp normal respiratory effort and no use of accessory muscles Resp Narrative: Breathing comfortably on BiPAP with good oxygen saturations. Moderately decreased breath sounds bilaterally with crackles noted throughout. No wheezing noted. Cardio regular rate, regular rhythm, no murmurs and peripheral pulses 2+ throughout GI normal to inspection, nondistended, normoactive bowel sounds, soft to palpation, non-tender and non-distended Back/Spine normal ROM Extremity Extremity Narrative: Walking boot noted on left leg that patient has used for years after prior ankle injury. +1-2 lower extremity nonpitting edema noted. Skin no rashes or lesions noted Neuro moves all extremities and no focal motor deficits Speech: speech normal Psych mental status grossly normal Results Lab / Micro Data 03/06/24 08:40 03/06/24 08:40 Labs: Laboratory Results - last 24 hr 03/06/24 08:40: WBC 6.2, RBC 5.07, Hgb 14.5, Hct 49.1, MCV 96.8 H, MCH 28.6, M CHC 29.5 L, RDW Std Deviation 54.7 H, RDW Coeff of Paddy 15.4 H, Plt Count 148 L, MPV 11.3, Immature Gran % (Auto) 0.300, Neut % (Auto) 80.8 H, Lymph % (Auto) 9.5 L, [place] % (Auto) 8.7, Eos % (Auto) 0.2, Baso % (Auto) 0.5, Absolute Neuts (auto) 5.0, Absolute Lymphs (auto) 0.59 L, Nucleated RBC % 0, Sodium 138, Potassium 4.4, Chloride 97 L, Carbon Dioxide 33.0 H, Anion Gap 8, BUN 76 H, Creatinine 1.74 H, Estim Creat Clear Calc 59.07, Est GFR (MDRD) Af Amer 50 L, Est GFR (MDRD) Non-Af 41 L, BUN/Creatinine Ratio 43.7 H, Glucose 197 H, Lactic Acid 0.7, Calcium 8.6, Total Bilirubin 1.20 H, AST 16, ALT 12 L, Alkaline Phosphatase 80, Troponin I High Sens 75, B-Natriuretic Peptide 1794.5 H, Total Protein 8.1, A lbumin 3.0 L, Globulin 5.1 H, Albumin/Globulin Ratio 0.6 L ABG Data ABG results: ABG 03/06/24 03/06/24 08:57 09:04 Specimen Type ART ART Sample Site R Radial Not entered pH 7.30 L 7.31 L Bicarbonate Actual 34.9 H 32.8 H Total CO2 37 35 Base Excess 9 H 7 H O2 Saturation 98 99 O2 % 10.0 ABG pCO2 70.7 H* 65.2 H ABG pO2 121 H 132 H Tristen Test Positive O2 Delivery Device HFNC Not entered Vent Mode Not entered Not entered Crit Call To/Read Back Yes Blood Gas Notified Whom olivier Blood Gas Notified Time 08:59:31 Rhythm Strip Rhythm Strip: Sinus Rhythm Rate: 85 Ectopy: PVC(s) Imaging Radiology Impression Chest X-Ray 03/06/24 08:43 IMPRESSION: Vascular congestion and CHF. Worsened the right hemithorax. Electronically Signed: Markell Osman MD at 9:10 EDT , Assessment & Plan Assessment/Plan (1) CHF exacerbation: (2) Acute on chronic respiratory failure with hypoxia and hypercapnia: (3) Acute kidney injury superimposed on chronic kidney disease: PLAN: Plan Patient is a 68-year-old male who presented to [facility] ED on 03/06/2024 with worsening shortness of breath. 1. CHF exacerbation with acute on chronic hypoxic and hypercapnic respiratory failure ? Admit under inpatient status to PCU. Suspect CHF is primarily due to underlying pulmonary disease. Wears 5 L nasal cannula at baseline. Chest x-ray showed vascular congestion consistent with heart failure. BNP 1794. ABG in ED showed pH 7.32, pCO2 68, pO2 117 on BiPAP. Last echo in 2017 showed EF 50 to 55%, moderate concentric LV hypertrophy, mild hypokinesis of the left ventricle. Repeat echo ordered. Given dose of IV Bumex in the ED, will start IV Bumex twice daily for now. Monitor daily BMP and urine output. Wean supplemental oxygen as able. 2. Elevated serum creatinine ? Creatinine 1.74 on admit. Last creatinine in our system was from 2019, baseline creatinine 1.1-1.3 at that time. Suspect mild increase from baseline secondary to cardiorenal syndrome in setting of CHF exacerbation. Patient reported slightly decreased urine output for a few days prior to admission. Treating CHF exacerbation as noted above. Monitor daily BMP and urine output. 3. Mild acute debility ? PT/OT/case management consulted. Lives at home with and reports decent functional status at baseline. However, he does use motorized wheelchair to get around most of the time. Chronic medical conditions: ? Morbid obesity: BMI 50 on admit. Complicates hospital course, care and prognosis. ? ANDRADE: Continue home BiPAP at night. ? Hypertension: Normotensive on admit. Continue home hydralazine for afterload reduction in setting of CHF exacerbation. Will hold home carvedilol for now. ? Type 2 diabetes mellitus: Will treat with sliding scale insulin with meals for now, adjust as needed. DVT prophylaxis: Heparin subcu CODE STATUS: DNR CCA, DNI. Discussed with patient on admission and he confirmed that he would not want any heroic measures in the setting of a cardiac arrest. Expected disposition: TBD Total clinical time spent by myself addressing the patient's medical issues, reviewing all the data, and collaborating with patient's care team: 75 minutes. Charges/Coding Visit Charges Inpatient E&M: 44373 Init Hosp L3
--- NOTE | 2024-03-06 09:49 | ECHOCS_ITS ---
Reason For Study: CHF Procedure This was a 2D Doppler, Color Flow transthoracic echocardiogram. The study was technically difficult. Contrast injection was performed. Exam performed portable in patient room. Left Ventricle Moderate to severe left ventricular concentric hypertrophy. Severely dilated left ventricular cavity. Severe generalized hypokinesis of the left ventricle. Estimated LVEF 35%. Right Ventricle Normal right ventricle. Atria The left atrium is mildly enlarged. Normal right atrium. Mitral Valve Mild (1+) mitral valve insufficiency. Tricuspid Valve Trivial tricuspid valve insufficiency. Right ventricular systolic pressure estimated to be 38 mmHg. Aortic Valve The aortic valve is not well visualized. Moderate to severe aortic valve calcification. Moderate aortic valve stenosis with mild aortic valve regurgitation. Pulmonic Valve The pulmonic valve is not well visualized. Great Vessels Moderately dilated aortic root. Pericardium/Pleural No pericardial effusion. Medication Diluted definity 3ml given slow IV push to enhance endocardial definition. MMode/2D Measurements & Calculations LVIDd: 7.6 cm IVSd: 1.7 cm LVOT diam: 2.7 cm LVIDs: 6.2 cm LVPWd: 1.4 cm RVDd: 3.4 cm FS: 17.8 % LVOT area: 5.8 cm2 Ao root diam: 4.8 cm LAV(MOD-bp): 74.7 ml LVAd ap4: 62.1 cm2 LAV(MOD-bp) Indexed: 28.6 ml/m2 LVLd ap4: 11.8 cm LAV(MOD-sp2): 73.8 ml EDV(MOD-sp4): 265.1 ml LAV(MOD-sp4): 65.3 ml EDV(sp4-el): 277.9 ml LVAs ap4: 52.7 cm2 LVLs ap4: 11.3 cm ESV(MOD-sp4): 202.4 ml ESV(sp4-el): 208.9 ml EF(MOD-sp4): 23.7 % EF(sp4-el): 24.8 % SV(MOD-sp4): 62.7 ml SV(sp4-el): 69.0 ml LA A4 area: 20.5 cm2 RA A4 area: 19.3 cm2 TAPSE: 2.0 cm Time Measurements MV dec time: 0.18 sec Doppler Measurements & Calculations MV E max mino: 90.0 cm/sec Lat Peak E' Mino: 9.6 cm/sec Med Peak E' Mino: 4.1 cm/sec MV A max mino: 58.0 cm/sec E/E' lat: 9.4 E/E' med: 21.8 MV E/A: 1.6 MV V2 max: 130.8 cm/sec MV P1/2t max mino: 131.6 cm/sec Ao V2 max: 327.2 cm/sec MV max P.8 mmHg MV P1/2t: 79.5 msec Ao max P.9 mmHg MV V2 mean: 63.9 cm/sec MV dec slope: 484.9 cm/sec2 Ao V2 mean: 230.8 cm/sec MV mean P.0 mmHg MVA(P1/2t): 2.8 cm2 Ao mean P.8 mmHg MV V2 VTI: 43.5 cm Ao V2 VTI: 86.6 cm MVA(VTI): 2.6 cm2 AV (velocity ratio): 0.23 BEE(I,D): 1.3 cm2 BEE(V,D): 1.4 cm2 LV V1 max: 76.4 cm/sec MR max mino: 447.6 cm/sec SV(LVOT): 114.7 ml LV V1 max P.3 mmHg MR max P.1 mmHg LV V1 mean P.4 mmHg LV V1 mean: 55.5 cm/sec LV V1 VTI: 19.6 cm TR max mino: 240.4 cm/sec TR max P.1 mmHg ECHO/Echo Complete W/ Contrast Interpretation Summary Technically difficult study. Moderate to severe left ventricular concentric hypertrophy. Severely dilated left ventricular cavity. Severe generalized hypokinesis of the left ventricle. Estimated LVEF 35%. Mild (1+) mitral valve insufficiency. Right ventricular systolic pressure estimated to be 38 mmHg. Moderate to severe aortic valve calcification. Moderate aortic valve stenosis w ith mild aortic valve regurgitation. Moderately dilated aortic root. The study was technically difficult. Ordering Physician: Elver Bradley Performed By: Tani Orta and Student
--- NOTE | 2024-03-06 09:52 | NURSING ---
PCU [facility] ON CHRONIC RESP FAILURE W HYPOXIA AND HYPERCAPNIA, CHF
[2024-03-06] MEDS: Bumetanide 1 MG/4 ML Vial 2 MG IV ×2 (09:58→17:07)
[2024-03-06 10:06] LABS: Allen Test Positive; Base Excess 9 mmol/L (-2 to +2); Bicarbonate 34.9 mmol/L (22-26); Blood Gas Specimen Type ART; Mode BiLevel; O2 Delivery Device BiPAP; PEEP 5; PO2 117 mmHG (75-100); RR 12; SITE L Radial; SO2 98 % (95-99); Total Carbon Dioxide 37 mmol/L; pCO2 68.4 mmHg (35-45); pH 7.32 (7.35-7.45)
[2024-03-06 10:54] LABS: Reflex Troponin-HS? (from REC) Y
[2024-03-06 12:13] LABS: Troponin-I HS 73 pg/mL (3.0-78.0)
[2024-03-06] MEDS: Aspirin 81 MG TAB.CHEW PO (13:00)
[2024-03-06 13:01] LABS: Bedside Glucose 124 mg/dL (74-106)
[2024-03-06] MEDS: Senna Tablet 2 TABLET PO (17:07)
[2024-03-06] MEDS: 0.9% Saline Lock 10 ML Syringe IV (17:10)
[2024-03-06 18:20] LABS: Bedside Glucose 133 mg/dL (74-106)
[2024-03-06] MEDS: Enoxaparin 40 MG/0.4 ML Syringe SC (21:45)
[2024-03-07] VITALS (10 sets, daily range): BP systolic 106–150; BP diastolic 51–77; PULSE 64–86; RESP 12–20; TEMP 35.5–36.9; O2SAT 92–96; BMI 50.6
[2024-03-07 00:39] LABS: Bedside Glucose 120 mg/dL (74-106)
[2024-03-07 07:01] LABS: Bedside Glucose 107 mg/dL (74-106)
[2024-03-07 07:36] LABS: Hematocrit 46.4 % (40-54); Hemoglobin 13.7 g/dL (13.0-16.5); Mean Corp Hgb Conc 29.5 g/dL (32-36); Mean Corpuscular Volume 98.1 fL (80-94); Mean Platelet Vol. 12.2 fl (6.2-12.0); Platelet Count 144 K/mm3 (150-450); RBC Distribution Width CV 15.3 % (11.6-14.6); RBC Distribution Width SD 54.7 fl (35.1-43.9); Red Blood Count 4.73 M/mm3 (4.6-6.2); White Blood Count 4.3 K/mm3 (4.4-11.0)
[2024-03-07 08:28] LABS: Anion Gap 2 (5-15); BUN 81 mg/dL (7-18); Chloride 99 mmol/L (98-107); Creatinine, Serum 1.62 mg/dL (0.70-1.30); EST Glomerular Filtration Rate 45 mL/min (>60); Est Glom Filt Rate - Afr Amer 54 mL/min (>60); Estimated Creatinine Clearance 65.25 ml/min; Glucose 118 mg/dL (74-106); Potassium 4.5 mmol/L (3.5-5.1); Sodium Level 139 mmol/L (136-145)
[2024-03-07 09:31] LABS: Hemoglobin A1c 6.7 % (3.8-5.6)
--- NOTE | 2024-03-07 10:47 | PCM.CONS.C ---
Assessment & Plan Assessment/Plan (1) Acute on chronic systolic congestive heart failure, NYHA class 3: PLAN: Continue diuresis. Switch to furosemide 80 mg IV twice daily. Already started on spironolactone and empagliflozin. It is noted that the patient was on carvedilol 25 mg twice daily at home. Switch back to carvedilol. Add ACEI. (2) Dilated cardiomyopathy: PLAN: See #1 above. Will need records from [facility]. (3) Moderate aortic valve stenosis: PLAN: Monitor. Periodic echo and clinical surveillance. (4) Morbid obesity with BMI of 50.0-59.9, adult: PLAN: Lose weight. Patient is diabetic. I believe he will benefit from GLP-1 agonists. Follow as per internal medicine. (5) ANDRADE (obstructive sleep apnea): PLAN: As per sleep medicine. Lose weight. HPI Consult Data Date of Consult: 03/07/24 HPI Narrative Reason for Consultation: Congestive heart failure HPI Narrative: 68-year-old gentleman who describes a previous history of congestive heart failure. Per him, he was diagnosed at [facility] with congestive heart failure. According to him, heart catheterization was done for him there as well. He is not sure about the time.. Presented to the hospital with progressive shortness of breath. Positive orthopnea. Positive ankle edema. Admitted with a diagnosis of congestive heart failure. Echocardiogram showed ejection fraction of 35% with severely dilated left ventricular cavity. Moderate aortic valve stenosis was also noted. [facility] Medical History Walking difficulty due to ankle and foot Wound healing, delayed Vitamin D deficiency Pulmonary embolism Congestive heart failure Aortic valve disease Lymphedema Venous insufficiency of both lower extremities Sleep apnea Super obesity Hyperlipidemia Home Medications ?Medication ?Instructions ?Recorded ?Last Taken ?Type carvedilol 25 mg tablet 25 mg PO BID blood pressure 01/18/17 10/19/18 History glipizide 5 mg tablet 5 mg PO DAILY diabetes 07/18/18 Unknown History aspirin 81 mg capsule 81 mg PO DAILY preventative 03/06/24 Unknown History bumetanide 2 mg tablet 2 mg PO BID water pill 03/06/24 Unknown History hydralazine 50 mg tablet 50 mg PO TID blood pressure 03/06/24 Unknown History insulin aspart U-100 5 unit subcut DAILY 03/06/24 Unknown History insulin human U-100 NPH-regulr 5 unit subcut BID diabetes 03/06/24 Unknown History 70-30 mix 100 unit/mL subcutaneous susp (Humulin 70/30 U-100 Insulin) Allergy/AdvReac Type Severity Reaction Status Date / Time No Known Allergies Allergy Verified 01/04/19 11:35 Social History (Updated 03/06/24 @ 10:48 by Arlene Holguin) household members: none Smoking Status: Never smoker Physical Exam Narrative Morbidly obese. Neck pain examination is difficult because of body habitus. Heart sounds 1 and 2 are noted. Chest examination reveals decreased air entry at bases. 2+ ankle edema noted. Risk Stratification Risk Stratification Applicable: No Objective Data Vital Signs: Vital Signs Temp Pulse Resp BP Pulse Ox O2 Del Method O2 Flow Rate 95.9 F L 70 20 H 141/76 H 96 Nasal Cannula 9 03/07/24 08:12 03/07/24 08:12 03/07/24 08:12 03/07/24 08:12 03/07/24 08:12 03/07/24 08:12 03/07/24 08:12 FiO2 30 03/07/24 07:54 Oxygen Flow Rate (L/min) 9 Oxygen Delivery Method Nasal Cannula Weight: 357 lb 12.8 oz Body Mass Index (BMI) 50.6 Intake & Output: Intake and Output for Last 24 Hours 03/05/24 03/06/24 03/07/24 23:59 23:59 23:59 Intake Total 860 / 860 0 / 0 Output Total 350 / 350 300 / 300 Balance 510 / 510 -300 / -300 Lab / Micro Data 03/07/24 06:41 03/07/24 06:41 Labs: Laboratory Results - last 24 hr 03/06/24 11:24: Troponin I High Sens 73 03/06/24 12:38: POC Glucose 124 H 03/06/24 17:14: POC Glucose 133 H 03/06/24 21:43: POC Glucose 120 H 03/07/24 05:57: POC Glucose 107 H 03/07/24 06:41: WBC 4.3 L, RBC 4.73, Hgb 13.7, Hct 46.4, MCV 98.1 H, MCH 29.0, MCHC 29.5 L, RDW Std Deviation 54.7 H, RDW Coeff of Paddy 15.3 H, Plt Count 144 L, MPV 12.2 H, Sodium 139, Potassium 4.5, Chloride 99, Carbon Dioxide 38.0 H, Anion Gap 2 L, BUN 81 H, Creatinine 1.62 H, Estim Creat Clear Calc 65.25, Est GFR (MDRD) Af Amer 54 L, Est GFR (MDRD) Non-Af 45 L, BUN/Creatinine Ratio 50.0 H, Glucose 118 H, Hemoglobin A1c 6.7 H, Calcium 9.0 ABG Data ABG results: ABG 03/06/24 09:04 Specimen Type Cancelled Sample Site Cancelled pH Cancelled Bicarbonate Actual Cancelled Total CO2 Cancelled Base Excess Cancelled O2 Saturation Cancelled O2 % Cancelled ABG pCO2 Cancelled ABG pO2 Cancelled Tristen Test Cancelled Respiration Rate Cancelled O2 Delivery Device Cancelled Liter Flow Cancelled Minute Volume Cancelled Vent Mode Cancelled Inspiratory Time Cancelled Expiratory Time Cancelled Tidal Volume Cancelled Mean Airway Pressure Cancelled POC PEEP Cancelled Peak Inspir Pressure Cancelled POC Pressure Suppt Cancelled Pressure Control Cancelled Pressure High Cancelled Pressure Low Cancelled Time High Cancelled Time Low Cancelled EPAP Cancelled IPAP Cancelled Blood Gas Comments Cancelled Crit Call To/Read Back Cancelled Blood Gas Notified Whom Cancelled Blood Gas Notified Time Cancelled Clinical Comments Cancelled Rhythm Strip Rhythm Strip: Sinus Rhythm Rate: 85 Ectopy: PVC(s) Cardiology Labs/Tests 03/06/24 09:04: pH Cancelled, Bicarbonate Actual Cancelled, Base Excess Cancelled, O2 Saturation Cancelled, ABG pCO2 Cancelled, ABG pO2 Cancelled, Tristen Test Cancelled 03/07/24 06:41: WBC 4.3 L, RBC 4.73, Hgb 13.7, Hct 46.4, MCV 98.1 H, MCH 29.0, MCHC 29.5 L, Plt Count 144 L, MPV 12.2 H, Sodium 139, Potassium 4.5, Chloride 99, Carbon Dioxide 38.0 H, Anion Gap 2 L, BUN 81 H, Creatinine 1.62 H, Est GFR (MDRD) Af Amer 54 L, Est GFR (MDRD) Non-Af 45 L, BUN/Creatinine Ratio 50.0 H, Glucose 118 H, Hemoglobin A1c 6.7 H, Calcium 9.0 Rhythm: EKG: ECHO: Stress Test: Cardiac Cath: PCI: CT Surgery: Holter monitor: EPS: PPM: CXR: Chest CT Scan: Radiography Diagnostic Testing: Radiology Impression Echocardiogram 03/06/24 09:49 Interpretation Summary Technically difficult study. Moderate to severe left ventricular concentric hypertrophy. Severely dilated left ventricular cavity. Severe generalized hypokinesis of the left ventricle. Estimated LVEF 35%. Mild (1+) mitral valve insufficiency. Right ventricular systolic pressure estimated to be 38 mmHg. Moderate to severe aortic valve calcification. Moderate aortic valve stenosis with mild aortic valve regurgitation. Moderately dilated aortic root. The study was technically difficult. Ordering Physician: Elver Bradley Performed By: Tani Orta and Student
[2024-03-07] MEDS: 0.9% Saline Lock 10 ML Syringe IV ×2 (10:50→17:00)
[2024-03-07] MEDS: Aspirin 81 MG TAB.CHEW PO (10:50)
[2024-03-07] MEDS: Senna Tablet 2 TABLET PO ×2 (10:50→23:19)
[2024-03-07] MEDS: Bumetanide 1 MG/4 ML Vial 2 MG IV (10:50)
[2024-03-07] MEDS: Enoxaparin 40 MG/0.4 ML Syringe SC ×2 (10:51→23:19)
[2024-03-07] MEDS: Metoprolol(XL)Succ 25 MG Tablet PO (10:54)
[2024-03-07] MEDS: Empagliflozin 10 MG Tablet PO (10:54)
[2024-03-07] MEDS: Spironolactone 25 MG Tablet PO (10:55)
[2024-03-07] MEDS: Insulin Lispro 100 UNIT/ML INSULN.PEN SC ×3 (12:06→23:19)
[2024-03-07] MEDS: FLU VACCINE **HIGH DOSE** TV 24-25 180 MCG/0.5 ML SYRINGE IM (12:07)
[2024-03-07 12:18] LABS: Bedside Glucose 187 mg/dL (74-106)
--- NOTE | 2024-03-07 12:48 | PN.HOSP_ITS ---
Reason for Visit Reason for Visit: Diagnoses Morbid (severe) obesity due to excess calories (03/06/24) Obstructive sleep apnea (adult) (pediatric) (03/06/24) Nonrheumatic aortic (valve) stenosis (03/06/24) Dilated cardiomyopathy (03/06/24) Acute on chronic systolic (congestive) heart failure (03/06/24) Heart failure, unspecified (03/06/24) Acute and chronic respiratory failure with hypoxia (03/06/24) Acute and chronic respiratory failure with hypercapnia (03/06/24) Acute kidney failure, unspecified (03/06/24) Chronic kidney disease, unspecified (03/06/24) Body mass index [BMI] 50.0-59.9, adult (03/06/24) Subjective Subjective Saw patient at bedside this morning. Patient was sitting up fairly comfortably in bedside chair, in no acute distress. He was mildly fatigued appearing but otherwise breathing comfortably on 8 L nasal cannula. He does appear mild to moderately improved from admission. States that he has had good urine output since yesterday and feels like his shortness of breath has improved since yesterday. Denies any other new concerns this morning. Objective Data Objective Data Vital Signs: Vital Signs Temp Pulse Resp BP Pulse Ox O2 Del Method O2 Flow Rate 95.9 F L 70 20 H 141/76 H 96 Nasal Cannula 9 03/07/24 08:12 03/07/24 10:54 03/07/24 08:12 03/07/24 08:12 03/07/24 08:12 03/07/24 08:12 03/07/24 08:12 FiO2 30 03/07/24 07:54 Oxygen Flow Rate (L/min) 9 Oxygen Delivery Method Nasal Cannula Weight: 162.295 kg Body Mass Index (BMI) 50.6 Intake & Output: Intake and Output for Last 24 Hours 03/05/24 03/06/24 03/07/24 23:59 23:59 23:59 Intake Total 860 / 860 625 / 625 Output Total 350 / 350 800 / 800 Balance 510 / 510 -175 / -175 Lab / Micro Data 03/07/24 06:41 03/07/24 06:41 Labs: Laboratory Results - last 24 hr 03/06/24 12:38: POC Glucose 124 H 03/06/24 17:14: POC Glucose 133 H 03/06/24 21:43: POC Glucose 120 H 03/07/24 05:57: POC Glucose 107 H 03/07/24 06:41: WBC 4.3 L, RBC 4.73, Hgb 13.7, Hct 46.4, MCV 98.1 H, MCH 29.0, M CHC 29.5 L, RDW Std Deviation 54.7 H, RDW Coeff of Paddy 15.3 H, Plt Count 144 L, MPV 12.2 H, Sodium 139, Potassium 4.5, Chloride 99, Carbon Dioxide 38.0 H, Anion Gap 2 L, BUN 81 H, Creatinine 1.62 H, Estim Creat Clear Calc 65.25, Est GFR (MDRD) Af Amer 54 L, Est GFR (MDRD) Non-Af 45 L, BUN/Creatinine Ratio 50.0 H, G lucose 118 H, Hemoglobin A1c 6.7 H, Calcium 9.0 03/07/24 12:00: POC Glucose 187 H ABG Data ABG results: ABG 03/06/24 09:04 Specimen Type Cancelled Sample Site Cancelled pH Cancelled Bicarbonate Actual Cancelled Total CO2 Cancelled Base Excess Cancelled O2 Saturation Cancelled O2 % Cancelled ABG pCO2 Cancelled ABG pO2 Cancelled Tristen Test Cancelled Respiration Rate Cancelled O2 Delivery Device Cancelled Liter Flow Cancelled Minute Volume Cancelled Vent Mode Cancelled Inspiratory Time Cancelled Expiratory Time Cancelled Tidal Volume Cancelled Mean Airway Pressure Cancelled POC PEEP Cancelled Peak Inspir Pressure Cancelled POC Pressure Suppt Cancelled Pressure Control Cancelled Pressure High Cancelled Pressure Low Cancelled Time High Cancelled Time Low Cancelled EPAP Cancelled IPAP Cancelled Blood Gas Comments Cancelled Crit Call To/Read Back Cancelled Blood Gas Notified Whom Cancelled Blood Gas Notified Time Cancelled Clinical Comments Cancelled Radiography Diagnostic Testing: Radiology Impression Echocardiogram 03/06/24 09:49 Interpretation Summary Technically difficult study. Moderate to severe left ventricular concentric hypertrophy. Severely dilated left ventricular cavity. Severe generalized hypokinesis of the left ventricle. Estimated LVEF 35%. Mild (1+) mitral valve insufficiency. Right ventricular systolic pressure estimated to be 38 mmHg. Moderate to severe aortic valve calcification. Moderate aortic valve stenosis with mild aortic valve regurgitation. Moderately dilated aortic root. The study was technically difficult. Ordering Physician: Elver Bradley Performed By: Tani Orta and Student Rhythm Strip Rhythm Strip: Sinus Rhythm Rate: 85 Ectopy: PVC(s) Physical Exam Const alert, oriented x3 and no apparent distress Constitutional Narrative: Pleasant elderly male, morbidly obese, mildly fatigued appearing, breathing comfortably on 8L NC, conversing normally, in no acute distress. Improving. General Appearance: cooperative and comfortable HEENT normocephalic, head/scalp atraumatic, hearing grossly normal bilaterally and nasal mucous membranes and turbinates normal Eyes PERRL, EOMs intact bilaterally and conjunctivae normal Neck full ROM Chest inspection of chest normal Resp normal respiratory effort and no use of accessory muscles Resp Narrative: Breathing comfortably on 8 L nasal cannula with good oxygen saturations. Moderately decreased breath sounds bilaterally with mild crackles noted, improving. No wheezing noted. Cardio regular rate, regular rhythm, no murmurs and peripheral pulses 2+ throughout GI normal to inspection, nondistended, normoactive bowel sounds, soft to palpation, non-tender and non-distended Back/Spine normal ROM Extremity Extremity Narrative: Walking boot noted on left leg that patient has used for years after prior ankle injury. +1-2 lower extremity nonpitting edema noted. Stable. Skin no rashes or lesions noted Neuro moves all extremities and no focal motor deficits Speech: speech normal Psych mental status grossly normal Assessment & Plan Assessment/Plan (1) CHF exacerbation: (2) Acute on chronic respiratory failure with hypoxia and hypercapnia: (3) Acute kidney injury superimposed on chronic kidney disease: PLAN: Plan Patient is a 68-year-old male who presented to [facility] ED on 03/06/2024 with worsening shortness of breath. 1. CHF exacerbation with acute on chronic hypoxic and hypercapnic respiratory failure ? Cardiology following. Presentation consistent with CHF exacerbation. Chest x-ray showed vascular congestion consistent with heart failure. BNP 1794. ABG in ED showed pH 7.32, pCO2 68, pO2 117 on BiPAP. Was initially thought that last cardiac workup was in 2017. However, was able to obtain records from [facility] on 03/07. Patient was hospitalized there in August 2022 with a heart failure exacerbation. Echo then showed EF 25 to 30%, severe diffuse hypokinesis, and grade 2 diastolic dysfunction. He was discharged on IV Bumex 2 mg 3 times daily at that time and was following with a electronic equipment maint tech there until about a year ago. He would like to establish with cardiology here going forward. Repeat echo on 03/06 showed EF 35%, severe generalized hypokinesis of LV and moderate to severe LV concentric hypertrophy. Started on IV Bumex on admission with improvement. Per cardiology, transitioned to IV Lasix 80 mg twice daily on 03/07 and started on Coreg, empagliflozin, lisinopril and spironolactone. Monitor daily BMP and urine output. Further medication changes per cardiology. Wean supplemental oxygen as able. Patient notably had leftover oxygen at home after a hospitalization 4 to 5 years ago and restarted supplemental oxygen at 5 L about 1 month prior to this admission. Will likely need oxygen on discharge, case management to assist with this. 2. Suspected mild elevated serum creatinine on CKD stage III; history of severe BRYANNA requiring hemodialysis ? Creatinine 1.74 on admit. Reviewed [facility] hospitalization from August 2022 and patient had acute on chronic kidney failure secondary to CHF exacerbation. He required hemodialysis during that hospitalization and for a period of time after hospitalization. Unclear when he was able to be transitioned off of hemodialysis. Baseline creatinine unclear. Improved to creatinine 1.62 on hospital day 2 with IV diuresis and reports good urine output. Suspect patient is close to his baseline at this time. Continue treatment of CHF exacerbation as noted above. Monitor daily BMP and urine output. Can consider nephrology consult as needed. 3. Mild acute debility ? PT/OT/case management following. Lives at home with and reports decent functional status at baseline. Does use motorized wheelchair to get around most of the time. Likely planning for home with outpatient physical therapy on discharge. Chronic medical conditions: ? Morbid obesity: BMI 50 on admit. Complicates hospital course, care and prognosis. ? ANDRADE: Continue home BiPAP at night. ? Hypertension: Normotensive on admit. Treating with new medication regimen as noted above. ? Type 2 diabetes mellitus: Treating with sliding scale insulin with meals for now, adjust as needed. DVT prophylaxis: Heparin subcu CODE STATUS: DNR CCA, DNI. Confirmed with patient on admission. Expected disposition: Home, 2 to 3 days Total clinical time spent by myself addressing the patient's medical issues, reviewing all the data, and collaborating with patient's care team: 35 minutes. Charges/Coding Visit Charges Inpatient E&M: 88913 Subs Hosp L2
--- NOTE | 2024-03-07 14:30 | CASEMGMT ---
RN CM FARM EQUIPMENT OPERATOR CM?to room to meet with patient for initial transition planning/care coordination assessment. RN CM?introduced self and role at [facility]. Pt voices understanding and consents to assessment?at this time. Pt sitting up in chair in room in no distress at this time. Pt is A/O at this time and answers all questions appropriately. Care providers, pharmacy, and demographics verified/updated at this time. Strata:?2 PCP: Dr Olsen Specialists: Was seeing Dr Betancourt, tape maker in [place] and Dr Guardado, accounts administrator in [place], but states does not wish to go back. States it has been about a year or more since he has seen them. He is interested in seeing specialists in [facility]. Provided w/local physician directory. He voices appreciation. Preferred Pharmacy: [facility] in [place]. [facility] @ [place]. Insurance: No insurance/self-pay Prescription Benefit: none Living Will/HPOA: Does not think he has LW, but is pretty sure he has done HCPOA and states his would be primary agent. He also thinks his son, Jose, is 1st alternative but he is not sure. LNOK: , Ethel. 12 adult children. Living Arrangements: Lives w/his in 2-story home w/2 steps to enter or a ramp entrance. FFSU. States is able to get up the 2 steps by holding onto the wall by the steps (no railing). Indep w/ADL's and manages his own medications. Pt and share home mgnt tasks. Transportation:?Pt states drives self and states no transportation concerns at this time. also drives. DME: has the following DME: shower chair, rollator, power W/C, pulse ox, functioning glucometer w/supplies as far as a I know I have enough. has sufficient supply of insulin and syringes @ home. O2: Pt states he was on O2 about 5 years ago that was prescribed by a physician. He had O2 at that time through [employer] and states he ended up purchasing the concentrator. Once he no longer needed the home O2, [facility] removed all of the portable O2 tanks from his home except one (possibly 2) tanks. He is not sure how full the one portable tank is. He states around November/December he started wearing the O2 @ 5 L/M @ HS on his own (without physician instruction) through his CPAP. He also [place], he started needing it during the day and started wearing it during the day @ 5 L/M also. They were in an RV, so he just stayed indoors so he could keep the O2 on, as he did not have portability. He states if he needs O2 @ discharge, he would be able to afford purchasing portable tanks and states [employer] is his 1st preference. Pt states no need for further DME at this time. HHC/SNF: Was @ [facility] in [place] around 2017. No hx of HHC. Discussed discharge planning. Pt wishes to return home. Discussed HHC, OP therapy, CCN, and Pt Link. He states he is not sure about any of this, as he wishes to talk w/his first. Therapy evals pending. Pt wishes to return home and states has no concerns with going home at time of discharge. CM?to follow for home oxygen needs and any further discharge planning/needs. PLAN: Home. Follow for O2 needs @ discharge. If pt needs Home O2, will need portability set up. Therapy evals pending. Follow for possible HHC or OP therapy. Also follow for possible CCN or Pt Link Bronson DIAZ RN CM
[2024-03-07] MEDS: Furosemide 100 MG/10 ML Vial 80 MG IV (17:01)
[2024-03-07 17:23] LABS: Bedside Glucose 168 mg/dL (74-106)
[2024-03-07] MEDS: Lisinopril 5 MG Tablet PO (23:18)
[2024-03-07] MEDS: Carvedilol 6.25 MG Tablet PO (23:19)
--- NOTE | 2024-03-07 23:21 | CPS ---
pt on own machine with 8l/m via o2 bleed in
[2024-03-08] VITALS (7 sets, daily range): BP systolic 101–138; BP diastolic 58–67; PULSE 62–75; RESP 12–21; TEMP 36.4–36.9; O2SAT 92–99; BMI 50.8
[2024-03-08 00:09] LABS: Bedside Glucose 163 mg/dL (74-106)
--- NOTE | 2024-03-08 04:08 | NURSING ---
emergency documentation starting @ 03/07 1900
[2024-03-08] MEDS: Insulin Lispro 100 UNIT/ML INSULN.PEN SC ×3 (06:09→21:11)
[2024-03-08 06:36] LABS: Bedside Glucose 166 mg/dL (74-106)
[2024-03-08 06:57] LABS: Anion Gap 4 (5-15); BUN 79 mg/dL (7-18); BUN/Creat Ratio 46.7 RATIO (10-20); Calcium,Total 8.8 mg/dL (8.5-10.1); Chloride 100 mmol/L (98-107); Creatinine, Serum 1.69 mg/dL (0.70-1.30); EST Glomerular Filtration Rate 43 mL/min (>60); Est Glom Filt Rate - Afr Amer 52 mL/min (>60); Estimated Creatinine Clearance 62.71 ml/min; Glucose 157 mg/dL (74-106); Potassium 4.9 mmol/L (3.5-5.1); Sodium Level 137 mmol/L (136-145)
[2024-03-08 07:07] LABS: Magnesium 2.9 mg/dL (1.6-2.6)
[2024-03-08] MEDS: 0.9% Saline Lock 10 ML Syringe IV (10:28)
[2024-03-08] MEDS: Carvedilol 6.25 MG Tablet PO ×2 (10:29→21:10)
[2024-03-08] MEDS: Furosemide 100 MG/10 ML Vial 80 MG IV ×2 (10:29→18:09)
[2024-03-08] MEDS: Aspirin 81 MG TAB.CHEW PO (10:29)
[2024-03-08] MEDS: Spironolactone 25 MG Tablet PO (10:29)
[2024-03-08] MEDS: Lisinopril 5 MG Tablet PO ×2 (10:30→21:09)
[2024-03-08] MEDS: Senna Tablet 2 TABLET PO ×2 (10:30→21:09)
[2024-03-08] MEDS: Empagliflozin 10 MG Tablet PO (10:30)
[2024-03-08] MEDS: Enoxaparin 40 MG/0.4 ML Syringe SC ×2 (10:30→21:09)
[2024-03-08 11:39] LABS: Bedside Glucose 183 mg/dL (74-106)
--- NOTE | 2024-03-08 12:03 | PCM.PN.HOSP ---
Reason for Visit Reason for Visit: Diagnoses Morbid (severe) obesity due to excess calories (03/06/24) Obstructive sleep apnea (adult) (pediatric) (03/06/24) Nonrheumatic aortic (valve) stenosis (03/06/24) Dilated cardiomyopathy (03/06/24) Acute on chronic systolic (congestive) heart failure (03/06/24) Heart failure, unspecified (03/06/24) Acute and chronic respiratory failure with hypoxia (03/06/24) Acute and chronic respiratory failure with hypercapnia (03/06/24) Acute kidney failure, unspecified (03/06/24) Chronic kidney disease, unspecified (03/06/24) Body mass index [BMI] 50.0-59.9, adult (03/06/24) Subjective Subjective Saw patient at bedside this morning. Patient appeared slightly improved this morning from yesterday. Has slightly more energy and is breathing comfortably on the 5 L nasal cannula he was on prior to admission. He has not had any bowel movements yet but has been passing gas and his abdominal fullness is slightly improved today. No other new concerns today. Objective Data Objective Data Vital Signs: Vital Signs Temp Pulse Resp BP Pulse Ox O2 Del Method O2 Flow Rate 98.5 F 62 18 124/60 H 94 Nasal Cannula 5 03/08/24 10:26 03/08/24 10:26 03/08/24 10:26 03/08/24 10:26 03/08/24 10:26 03/08/24 10:26 03/08/24 10:26 FiO2 30 03/07/24 07:54 Oxygen Flow Rate (L/min) 5 Oxygen Delivery Method Nasal Cannula Weight: 163 kg Body Mass Index (BMI) 50.8 Intake & Output: Intake and Output for Last 24 Hours 03/06/24 03/07/24 03/08/24 23:59 23:59 23:59 Intake Total 860 / 860 1105 / 1105 Output Total 350 / 350 1650 / 1650 Balance 510 / 510 -545 / -545 Lab / Micro Data 03/07/24 06:41 03/08/24 05:55 Labs: Laboratory Results - last 24 hr 03/07/24 12:00: POC Glucose 187 H 03/07/24 16:55: POC Glucose 168 H 03/07/24 23:17: POC Glucose 163 H 03/08/24 05:55: Sodium 137, Potassium 4.9, Chloride 100, Carbon Dioxide 33.0 H, Anion Gap 4 L, BUN 79 H, Creatinine 1.69 H, Estim Creat Clear Calc 62.71, Est GFR (MDRD) Af Amer 52 L, Est GFR (MDRD) Non-Af 43 L, BUN/Creatinine Ratio 46.7 H, Glucose 157 H, Calcium 8.8, Magnesium 2.9 H 03/08/24 06:06: POC Glucose 166 H 03/08/24 11:16: POC Glucose 183 H Rhythm Strip Rhythm Strip: Sinus Rhythm Rate: 85 Ectopy: PVC(s) Physical Exam Const alert, oriented x3 and no apparent distress Constitutional Narrative: Pleasant elderly male, morbidly obese, mildly fatigued appearing, breathing comfortably on 5L NC, conversing normally, in no acute distress. Improving. General Appearance: cooperative and comfortable HEENT normocephalic, head/scalp atraumatic, hearing grossly normal bilaterally and nasal mucous membranes and turbinates normal Eyes PERRL, EOMs intact bilaterally and conjunctivae normal Neck full ROM Chest inspection of chest normal Resp normal respiratory effort and no use of accessory muscles Resp Narrative: Breathing comfortably on 5 L nasal cannula with good oxygen saturations. Mildly decreased breath sounds bilaterally with mild crackles noted, improving. No wheezing noted. Cardio regular rate, regular rhythm, no murmurs and peripheral pulses 2+ throughout GI normal to inspection, nondistended, normoactive bowel sounds, soft to palpation, non-tender and non-distended Back/Spine normal ROM Extremity Extremity Narrative: Walking boot noted on left leg that patient has used for years after prior ankle injury. +1-2 lower extremity nonpitting edema noted. Stable. Skin no rashes or lesions noted Neuro moves all extremities and no focal motor deficits Speech: speech normal Psych mental status grossly normal Assessment & Plan Assessment/Plan (1) CHF exacerbation: (2) Acute on chronic respiratory failure with hypoxia and hypercapnia: (3) Acute kidney injury superimposed on chronic kidney disease: PLAN: Plan Patient is a 68-year-old male who presented to [facility] ED on 03/06/2024 with worsening shortness of breath. 1. CHF exacerbation with acute on chronic hypoxic and hypercapnic respiratory failure ? Cardiology following. Presentation consistent with CHF exacerbation. Chest x-ray showed vascular congestion consistent with heart failure. BNP 1794. ABG in ED showed pH 7.32, pCO2 68, pO2 117 on BiPAP. Was initially thought that last cardiac workup was in 2017. However, was able to obtain records from [facility] on 03/07. Patient was hospitalized there in August 2022 with a heart failure exacerbation. Echo then showed EF 25 to 30%, severe diffuse hypokinesis, and grade 2 diastolic dysfunction. He was discharged on IV Bumex 2 mg 3 times daily at that time and was following with a police crime scene technician there until about a year ago. He would like to establish with cardiology here going forward. Repeat echo on 03/06 showed EF 35%, severe generalized hypokinesis of LV and moderate to severe LV concentric hypertrophy. Started on IV Bumex on admission with improvement. Per cardiology, transitioned to IV Lasix 80 mg twice daily on 03/07 and started on Coreg, empagliflozin, lisinopril and spironolactone. Monitor daily BMP and urine output. Hopeful to de-escalate to p.o. diuretics tomorrow. Continue to wean supplemental oxygen as able. Patient notably had leftover oxygen at home after a hospitalization 4 to 5 years ago and restarted supplemental oxygen at 5 L about 1 month prior to this admission. Will likely need oxygen on discharge, case management to assist with this. 2. Suspected mild elevated serum creatinine on CKD stage III; history of severe BRYANNA requiring hemodialysis ? Creatinine 1.74 on admit. Reviewed [place] hospitalization from August 2022 and patient had acute on chronic kidney failure secondary to CHF exacerbation. He required hemodialysis during that hospitalization and for a period of time after hospitalization. Unclear when he was able to be transitioned off of hemodialysis. Baseline creatinine unclear. Improved to creatinine 1.62 on hospital day 2 with IV diuresis and reports good urine output. Suspect patient is close to his baseline at this time. Continue treatment of CHF exacerbation as noted above. Monitor daily BMP and urine output. Can consider nephrology consult as needed. 3. Mild acute debility ? PT/OT/case management following. Lives at home with and reports decent functional status at baseline. Does use motorized wheelchair to get around most of the time. Planning for home with home health care on discharge. Chronic medical conditions: ? Morbid obesity: BMI 50 on admit. Complicates hospital course, care and prognosis. ? ANDRDAE: Continue home BiPAP at night. ? Hypertension: Normotensive on admit. Treating with new medication regimen as noted above. ? Type 2 diabetes mellitus: Treating with sliding scale insulin with meals for now, adjust as needed. DVT prophylaxis: Heparin subcu CODE STATUS: DNR CCA, DNI. Confirmed with patient on admission. Expected disposition: Home, 1 to 2 days Total clinical time spent by myself addressing the patient's medical issues, reviewing all the data, and collaborating with patient's care team: 35 minutes. Charges/Coding Visit Charges Inpatient E&M: 54625 Subs Hosp L2
--- NOTE | 2024-03-08 15:48 | CASEMGMT ---
Dr. Bradley states that the tentative plan is to DC the pt tomorrow. This RN CM to pt room at this time to discuss DC planning. Pt states that he lives with his and that he is independent. 6-Click score is 21. At this time the pt is denying the need for HHC, OP Tx, CCN, or pt link. Pt states that he feels safe with this plan for now. Pt is aware that we will follow for oxygen demands and will get the pt set up through [facility] if needed (See RN CM assessment).
[2024-03-08 18:55] LABS: Bedside Glucose 114 mg/dL (74-106)
[2024-03-08 21:25] LABS: Bedside Glucose 182 mg/dL (74-106)
[2024-03-09] VITALS (7 sets, daily range): BP systolic 118–135; BP diastolic 57–67; PULSE 68–73; RESP 18–20; TEMP 36.3–36.9; O2SAT 83–96; BMI 50.3
[2024-03-09 06:39] LABS: Bedside Glucose 135 mg/dL (74-106)
[2024-03-09 07:30] LABS: Anion Gap 2 (5-15); BUN 82 mg/dL (7-18); BUN/Creat Ratio 54.7 RATIO (10-20); Calcium,Total 9.2 mg/dL (8.5-10.1); Chloride 100 mmol/L (98-107); EST Glomerular Filtration Rate 49 mL/min (>60); Est Glom Filt Rate - Afr Amer 59 mL/min (>60); Estimated Creatinine Clearance 70.21 ml/min; Glucose 144 mg/dL (74-106); Potassium 4.5 mmol/L (3.5-5.1); Sodium Level 140 mmol/L (136-145)
[2024-03-09] MEDS: Lisinopril 5 MG Tablet PO (10:26)
[2024-03-09] MEDS: Senna Tablet 2 TABLET PO (10:26)
[2024-03-09] MEDS: Enoxaparin 40 MG/0.4 ML Syringe SC (10:27)
[2024-03-09] MEDS: Carvedilol 6.25 MG Tablet PO (10:27)
[2024-03-09] MEDS: Empagliflozin 10 MG Tablet PO (10:27)
[2024-03-09] MEDS: Spironolactone 25 MG Tablet PO (10:27)
[2024-03-09] MEDS: Aspirin 81 MG TAB.CHEW PO (10:27)
[2024-03-09] MEDS: Bumetanide 2 MG Tablet PO (10:27)
[2024-03-09] MEDS: Insulin Lispro 100 UNIT/ML INSULN.PEN SC (11:18)
--- NOTE | 2024-03-09 12:28 | DCINST_ITS ---
Discharge Instructions Diet Discharge Diet: 6 Cup Fluid Restriction, 2000 mg Sodium Diet and Carb Control Diet Activity Discharge Activity: No Restrictions Follow Up Care Test Results: Test results from this visit will be discussed in further detail at your follow- up appointment, if applicable. Discharge Plan Admission Admit Date/Time: 03/06/24 09:44 Primary Reason for Your Visit: Worsening shortness of breath Attending Provider: Elver Bradley Primary Care Provider: Dawson Olsen Consulting Providers: Sofia Garg Instructions Additional Instructions / Restrictions: Please take the carvedilol, Jardiance, lisinopril and spironolactone for your heart failure as noted below. Continue taking the Bumex twice daily for your water pill. Stop taking the hydralazine that was for your blood pressure. The cardiology office will call to schedule you a follow-up appointment soon. Discharge Orders/Prescriptions Prescriptions: New carvedilol 6.25 mg Tablet 6.25 mg PO BID 30 Days Qty: 60 2RF spironolactone 25 mg Tablet 25 mg PO DAILY 30 Days Qty: 30 2RF lisinopril 5 mg Tablet 5 mg PO BID 30 Days Qty: 60 2RF Jardiance 10 mg Tablet 10 mg PO DAILY 30 Days Qty: 30 2RF Continued glipizide 5 MG tablet 5 mg PO DAILY aspirin 81 mg capsule 81 mg PO DAILY insulin aspart U-100 [Novolog U-100 Insulin aspart] 5 unit subcut DAILY Patient Comments: with breakfast Humulin 70/30 U-100 Insulin 100 unit/mL (70-30) suspension 5 unit subcut BID Rx Instructions: 90-150 =5 units, 150-200=10 units...increased 5 units each level to max of 20 units bumetanide 2 mg tablet 2 mg PO BID 30 Days Qty: 60 2RF Discontinued carvedilol 25 MG tablet 25 mg PO BID Patient Comments: blood pressure hydralazine 50 mg tablet 50 mg PO TID Referrals / Follow Up: Sofia Garg MD [Med Staff - Active Staff] - Dawson Olsen DO [Primary Care Provider] - Disposition Disposition (needs filled in before D/C Order can be placed): Home Health Service
--- NOTE | 2024-03-09 12:32 | DS.PCM_ITS ---
Providers Date of Admission: 03/06/24 Date of Discharge: 03/09/24 Primary Care Physician: Dr. Dawson Olsen, Consultations 03/07/24 07:58 Consult: Cardiology Routine Consulting Provider: Sofia Garg Reason for Consult: new HFrEF EMERGENT Consult: No MD Notified: Yes Date Notified: 03/07/24 Time Notified: 08:33 Method of Notification: Text Reason For Visit: CHF EXACERBATION W/ACUTE ON CHRONIC HYPOXIA Diagnosis Discharge Diagnosis (1) CHF exacerbation: Status: Chronic Code(s): I50.9 - Heart failure, unspecified (2) Acute on chronic respiratory failure with hypoxia and hypercapnia: Status: Chronic Code(s): J96.21 - Acute and chronic respiratory failure with hypoxia; J96.22 - Acute and chronic respiratory failure with hypercapnia (3) Acute kidney injury superimposed on chronic kidney disease: Status: Chronic Code(s): N17.9 - Acute kidney failure, unspecified; N18.9 - Chronic kidney disease, unspecified Medications at Discharge Home Medications glipizide 5 mg tablet 5 mg PO DAILY diabetes 07/18/18 aspirin 81 mg capsule 81 mg PO DAILY preventative 03/06/24 insulin aspart U-100 5 unit subcut DAILY 03/06/24 insulin human U-100 NPH-regulr 70-30 mix 100 unit/mL subcutaneous susp (Humulin 70/30 U-100 Insulin) 5 unit subcut BID diabetes 03/06/24 bumetanide 2 mg tablet 2 mg PO BID water pill 30 days #60 tabs 03/09/24 carvedilol 6.25 mg tablet 6.25 mg PO BID 30 days #60 tabs 03/09/24 empagliflozin 10 mg tablet (Jardiance) 10 mg PO DAILY 30 days #30 tabs 03/09/24 lisinopril 5 mg tablet 5 mg PO BID 30 days #60 tabs 03/09/24 spironolactone 25 mg tablet 25 mg PO DAILY 30 days #30 tabs 03/09/24 Hospital Course Operations None Procedures EKG, Transthoracic echo and - (Chest x-ray) Summary of Care Provided Minutes Spent on Discharge: 35 Hospital Course: Patient is a 68-year-old male who presented to [facility] ED on 03/06/2024 with worsening shortness of breath. Hospital course as noted below. Patient discharged home with home health care in stable condition on 03/09. 1. CHF exacerbation with acute on chronic hypoxic and hypercapnic respiratory failure ? Cardiology followed. Presentation consistent with CHF exacerbation. Chest x- ray showed vascular congestion consistent with heart failure. BNP 1794. ABG in ED showed pH 7.32, pCO2 68, pO2 117 on BiPAP. Was initially thought that last cardiac workup was in 2016. However, was able to obtain records from [facility] on 03/07. Patient was hospitalized there in August 2022 with a heart failure exacerbation. Echo then showed EF 25 to 30%, severe diffuse hypokinesis, and grade 2 diastolic dysfunction. He was discharged on IV Bumex 2 mg 3 times daily at that time and was following with a diversified crops farmer there until about a year ago. Notably was on oxygen 4 to 5 years ago and self restarted on 5 L supplemental oxygen about 1 month prior to this admission. Repeat echo on 03/06 showed EF 35%, severe generalized hypokinesis of LV and moderate to severe LV concentric hypertrophy. Started on IV Bumex on admission with improvement. Per cardiology, transitioned to IV Lasix 80 mg twice daily on 03/07 and started on Coreg, empagliflozin, lisinopril and spironolactone. Good volume removal on IV Lasix, de-escalated to p.o. Bumex 2 mg twice daily on day of discharge. Required 5 L nasal cannula of supplemental oxygen on discharge, prescription sent. Wanted to establish with our cardiology group and will see them in the office in the next 1 to 2 weeks. 2. Suspected mild elevated serum creatinine on CKD stage III; history of severe BRYANNA requiring hemodialysis ? Creatinine 1.74 on admit. Reviewed [place] hospitalization from August 2022 and patient had acute on chronic kidney failure secondary to CHF exacerbation. He required hemodialysis during that hospitalization and for a week after hospitalization but was then transitioned off. Baseline creatinine unclear. Improved to creatinine 1.62 on hospital day 2 with IV diuresis and reports good urine output. Suspect patient is close to his baseline at this time. Creatinine stable during treatment of CHF as noted above. 3. Mild acute debility ? PT/OT/case management followed. Lives at home with and reports decent functional status at baseline. Does use motorized wheelchair to get around most of the time. Stable for discharge home with home health care on 03/09. Chronic medical conditions: ? Morbid obesity: BMI 50 on admit. Complicated hospital course, care and prognosis. ? ANDRADE: Continue home BiPAP at night. ? Hypertension: Normotensive on admit. Treated with new medication regimen as noted above. ? Type 2 diabetes mellitus: Treated with sliding scale insulin with meals while inpatient. Resume home insulin and glipizide on discharge. Total clinical time spent by myself addressing the patient's medical issues, reviewing all the data, and collaborating with patient's care team: 35 minutes. Physical Exam Const alert, oriented x3 and no apparent distress Constitutional Narrative: Pleasant elderly male, morbidly obese, mildly fatigued appearing, breathing comfortably on 5L NC, conversing normally, in no acute distress. Improved. General Appearance: cooperative and comfortable HEENT normocephalic, head/scalp atraumatic, hearing grossly normal bilaterally and nasal mucous membranes and turbinates normal Eyes PERRL, EOMs intact bilaterally and conjunctivae normal Neck full ROM Chest inspection of chest normal Resp normal respiratory effort and no use of accessory muscles Resp Narrative: Breathing comfortably on 5 L nasal cannula with good oxygen saturations. Mildly decreased breath sounds bilaterally with mild crackles noted, improved. No wheezing noted. Cardio regular rate, regular rhythm, no murmurs and peripheral pulses 2+ throughout GI normal to inspection, nondistended, normoactive bowel sounds, soft to palpation, non-tender and non-distended Back/Spine normal ROM Extremity Extremity Narrative: Trace lower extremity nonpitting edema noted, improved from admission. Skin no rashes or lesions noted Neuro moves all extremities and no focal motor deficits Speech: speech normal Psych mental status grossly normal Weight / BMI Weight Weight: 161.3 kg Body Mass Index (BMI) 50.3 ABG / Lab / Microbiology Data 03/07/24 06:41 03/09/24 05:40 Laboratory: Laboratory Results - last 24 hr 03/08/24 18:06: POC Glucose 114 H 03/08/24 21:08: POC Glucose 182 H 03/09/24 05:40: Sodium 140, Potassium 4.5, Chloride 100, Carbon Dioxide 38.0 H, Anion Gap 2 L, BUN 82 H, Creatinine 1.50 H, Estim Creat Clear Calc 70.21, Est GFR (MDRD) Af Amer 59 L, Est GFR (MDRD) Non-Af 49 L, BUN/Creatinine Ratio 54.7 H , Glucose 144 H, Calcium 9.2 03/09/24 06:18: POC Glucose 135 H D/C Instructions Discharge Diet: 6 Cup Fluid Restriction, 2000 mg Sodium Diet and Carb Control Diet Meaningful Use Info Meaningful Use Meaningful Use Diagnoses (Choose all that apply): CHF CHF ANA/ARB ordered at discharge?: Yes Documented LVEF (%): 35 Ischemic Stroke Statin Dosing Therapy Reference: STATIN DOSE THERAPY REFERENCE: * Patients > 75 years receive moderate or high dose statin therapy. * Patients 75 years or YOUNGER should receive HIGH intensity statin dose unless contraindicated. You will be required to document reason for non-treatment if statin daily dose does not meet guidelines. HIGH DOSE STATIN THERAPY DAILY Atorvastatin > than or = to 40 mg Rosuvastatin > than or = to 20 mg Amlodipine + Atorvastatin > than or = to 2.5/40 mg Ezetimibe + Simvastatin 10/80 mg Simvastatin 80mg Discharge Plan Admission Admit Date/Time: 03/06/24 09:44 Primary Reason for Your Visit: Worsening shortness of breath Attending Provider: Elver Bradley Primary Care Provider: Dawson Olsen Consulting Providers: Sofia Garg Instructions Additional Instructions / Restrictions: Please take the carvedilol, Jardiance, lisinopril and spironolactone for your heart failure as noted below. Continue taking the Bumex twice daily for your water pill. Stop taking the hydralazine that was for your blood pressure. The cardiology office will call to schedule you a follow-up appointment soon. Discharge Orders/Prescriptions Prescriptions: New carvedilol 6.25 mg Tablet 6.25 mg PO BID 30 Days Qty: 60 2RF spironolactone 25 mg Tablet 25 mg PO DAILY 30 Days Qty: 30 2RF lisinopril 5 mg Tablet 5 mg PO BID 30 Days Qty: 60 2RF Jardiance 10 mg Tablet 10 mg PO DAILY 30 Days Qty: 30 2RF Continued glipizide 5 MG tablet 5 mg PO DAILY aspirin 81 mg capsule 81 mg PO DAILY insulin aspart U-100 [Novolog U-100 Insulin aspart] 5 unit subcut DAILY Patient Comments: with breakfast Humulin 70/30 U-100 Insulin 100 unit/mL (70-30) suspension 5 unit subcut BID Rx Instructions: 90-150 =5 units, 150-200=10 units...increased 5 units each level to max of 20 units bumetanide 2 mg tablet 2 mg PO BID 30 Days Qty: 60 2RF Discontinued carvedilol 25 MG tablet 25 mg PO BID Patient Comments: blood pressure hydralazine 50 mg tablet 50 mg PO TID Referrals / Follow Up: Sofia Garg MD [Med Staff - Active Staff] - Dawson Olsen DO [Primary Care Provider] - Disposition Disposition (needs filled in before D/C Order can be placed): Home Health Service Charges/Coding Visit Charges Inpatient E&M: 42313 Disch Hosp >30min
--- NOTE | 2024-03-09 12:32 | PCM.HOSP.N ---
Hospitalist Note I have reviewed the oxygen testing, and this patient qualifies for the home equipment and portability. The patient is mobile in the home and the community.
[2024-03-09 12:53] LABS: Bedside Glucose 196 mg/dL (74-106)
--- NOTE | 2024-03-09 13:00 | CASEMGMT ---
Pt has an order for DC placed. TC to [facility]. Lester states that he applied the [employer] discount for the pt medications but he is unable to apply any further discounts at this time. The total cost for the pt medications is 779$. The Jardiance is 700$. Per the mixer and scaler, the pt did qualify for home oxygen. There is a green sheet on the chart for staff to follow. This RN CM to pt room at this time. Pt states that the medications are affordable and that he would like to have the medications delivered to bedside. Pt states that he has a debit card to pay with. Lester from [facility] notified. [facility] to bring meds to bed prior to DC. Pt states that he has a working CPAP at home. Pt re-educated to [place] [facility] [place] so they can deliver the remaining equipment to the pt home. Pt states understanding. Pt denies further questions or concerns at this time. CM DC plan updated.
== END 2024-03-09 15:39 | disposition home health service (06) | DRG 291 ==
LOC: ED 09:35 → PCU 09:54
PROVIDERS: Family Medicine; Admitting Provider Hospitalist; Emergency Provider Emergency Medicine; PCP Family Medicine; Visit Provider Hospitalist
DX: I13.0 Hypertensive heart and chronic kidney disease with heart failure and stage 1 through stage 4 chronic kidney disease, or unspecified chronic kidney disease (principal); J96.22 Acute and chronic respiratory failure with hypercapnia; J96.21 Acute and chronic respiratory failure with hypoxia; I50.23 Acute on chronic systolic (congestive) heart failure; Z68.43 Body mass index [BMI] 50.0-59.9, adult; I42.0 Dilated cardiomyopathy; E11.22 Type 2 diabetes mellitus with diabetic chronic kidney disease; N18.30 Chronic kidney disease, stage 3 unspecified; I35.0 Nonrheumatic aortic (valve) stenosis; E66.01 Morbid (severe) obesity due to excess calories; E78.5 Hyperlipidemia, unspecified; E11.65 Type 2 diabetes mellitus with hyperglycemia; G47.33 Obstructive sleep apnea (adult) (pediatric); Z79.4 Long term (current) use of insulin; R79.89 Other specified abnormal findings of blood chemistry; R53.81 Other malaise; Z66 Do not resuscitate; Z23 Encounter for immunization; Z99.81 Dependence on supplemental oxygen; Z79.84 Long term (current) use of oral hypoglycemic drugs; Z79.82 Long term (current) use of aspirin; Z79.899 Other long term (current) drug therapy
CPT/HCPCS: 36415; 36600; 71045; 80048; 80053; 82803; 82962; 83036; 83605; 83735; 83880; 84484; 85025; 85027; 90662; 93005; 93306; 94002; 94003; 94668; 94762; 97162; 97530; 97802; 99285; Q9957; A4216; C8929; J1940

== ENCOUNTER → 2024-05-20 | Outpatient (CLI) | payer SELFPAY ==
--- NOTE | 2024-05-20 12:56 | ECHOLC_ITS ---
Reason For Study: Dilated Cardiomyopathy Procedure This was a limited 2D transthoracic echocardiogram. The study was technically difficult. Contrast injection was performed. Exam performed in department. Left Ventricle Severely dilated left ventricular cavity. Severe left ventricular concentric hypertrophy. Severe generalized hypokinesis of the left ventricle. Estimated LVEF 35%. Right Ventricle Normal RV size. Moderate global right ventricular systolic dysfunction. Atria Severely dilated left atrium. The right atrium is mildly enlarged. Mitral Valve Trivial mitral valve insufficiency. Tricuspid Valve The tricuspid valve is not well visualized. Aortic Valve Moderate to severe aortic valve calcification. Aortic valve peak gradient 42.9 mmHg, which is essentially unchanged from previous study in January 2024. Pulmonic Valve The pulmonic valve is not well visualized. Great Vessels Mildly dilated aortic root. Pericardium/Pleural No pericardial effusion. Medication 22 gauge I.V. with prn adaptor inserted into right arm. Diluted definity 4ml given slow IV push to enhance endocardial definition. MMode/2D Measurements & Calculations LVIDd: 6.7 cm IVSd: 1.8 cm LVIDs: 5.5 cm LVPWd: 1.8 cm LVAd ap4: 58.8 cm2 FS: 17.4 % LVLd ap4: 10.9 cm EDV(MOD-sp4): 272.0 ml EDV(sp4-el): 269.6 ml LVAs ap4: 46.3 cm2 LVLs ap4: 11.1 cm ESV(MOD-sp4): 166.0 ml ESV(sp4-el): 164.6 ml EF(MOD-sp4): 39.0 % EF(sp4-el): 38.9 % SV(MOD-sp4): 106.0 ml SV(sp4-el): 105.0 ml SI(MOD-sp4): 40.3 ml/m2 Doppler Measurements & Calculations Ao V2 max: 327.5 cm/sec Ao max P.9 mmHg ECHO/Echo Limited w/Contrast Interpretation Summary Severely dilated left ventricular cavity. Severe left ventricular concentric hy pertrophy. Severe generalized hypokinesis of the left ventricle. Estimated LVEF 35%. Moderate global right ventricular systolic dysfunction. Severely dilated left atrium. The right atrium is mildly enlarged. Moderate to severe aortic valve calcification. Aortic valve peak gradient 42.9 mmHg, which is essentially unchanged from previous study in January 2024. Mildly dilated aortic root. The study was technically difficult. Ordering Physician: Chidi Goins Referring Physician: Chidi Goins Performed By: Tani Kimbrough RCS
== END | disposition home or self-care (01) ==
PROVIDERS: PCP Family Medicine; Referring Provider Nurse Practitioner Family; Visit Provider Nurse Practitioner Family
DX: I42.0 Dilated cardiomyopathy (principal)
CPT/HCPCS: 93308; Q9957; A4216; C8924

== ENCOUNTER 2025-03-21 16:11 | Inpatient (IN) | payer OTHER, SELFPAY ==
[2025-03-21] VITALS (11 sets, daily range): BP systolic 90–147; BP diastolic 53–133; PULSE 76–85; RESP 18–28; TEMP 36.4–36.6; O2SAT 92–100; BMI 49.6; BMI 50.1
--- NOTE | 2025-03-21 16:20 | EKG12_ITS ---
Test Reason : SOB Blood Pressure : */* mmHG Vent. Rate : 82 BPM Atrial Rate : 82 BPM P-R Int : 202 ms QRS Dur : 168 ms QT Int : 422 ms P-R-T Axes : 46 -56 103 degrees QTcB Int : 493 ms Sinus rhythm with Fusion complexes Left axis deviation Left bundle branch block Abnormal ECG Confirmed by JARAD CHILEL, MARS ([id number]), editor managing director ISSA RECINOS ([id number]) on 03/24/2025 6:26:04 AM Referred By: Confirmed By: MARS ABRAHAM MD
[2025-03-21 16:39] LABS: Hematocrit 38.0 % (40-54); Hemoglobin 12.2 g/dL (13.0-16.5); Immature Granulocytes Count 0.030 X10^3/uL (0.0-0.0); Mean Corp Hgb Conc 32.1 g/dL (32-36); Mean Corpuscular Volume 92.0 fL (80-94); Mean Platelet Vol. 11.1 fl (6.2-12.0); NRBC Flagged by Analyzer 0 % (0-5); POSITIVE DIFFERENTIAL YES; Platelet Count 165 K/mm3 (150-450); RBC Distribution Width CV 14.8 % (11.6-14.6); RBC Distribution Width SD 50.3 fl (35.1-43.9); Red Blood Count 4.13 M/mm3 (4.6-6.2); White Blood Count 6.1 K/mm3 (4.4-11.0)
--- NOTE | 2025-03-21 16:56 | EDS_ITS ---
HPI History of Present Illness Chief Complaint: Shortness of Breath Informant: patient Onset/Context/Timing Onset: Days Context: gradual Timing: Continuous Quality: Positive for Orthopnea Current Severity: Moderate Maximum Severity: Moderate Worsened by: Exertion and Lying flat Relieved by: Oxygen Associated Symptoms Negative for cough Chest Pain: Positive for None Narrative Narrative: 69-year-old male extensive past medical history including cardiomyopathy, pulmonary emboli, aortic stenosis, CHF, insulin-dependent diabetes. Complaining of increasing shortness of breath the last 4 days. No chest pain. No fever nor cough. No nausea, vomiting or diarrhea. Chronic lower extremity swelling unchanged. PE Risk Factors: Positive for Prior DVT or PE; Negative for Cancer, OCP + Smoking + > 35, Recent immobilization, Recent surgery or Recent travel Prior similar symptoms: Yes Recent Illness/Hospitalization: Yes [facility] Medical History (Updated 03/21/25 @ 20:[address] Berto Lopez MD) ANDRADE (obstructive sleep apnea) HLD (hyperlipidemia) HTN (hypertension) Non-ischemic cardiomyopathy Morbid obesity with BMI of 50.0-59.9, adult Moderate aortic valve stenosis Controlled type 2 diabetes mellitus with hyperglycemia Dilated cardiomyopathy Walking difficulty due to ankle and foot Wound healing, delayed Vitamin D deficiency Pulmonary embolism Congestive heart failure Aortic valve disease Lymphedema Venous insufficiency of both lower extremities Sleep apnea Super obesity Hyperlipidemia Home Medications ?Medication ?Instructions ?Recorded ?Last Taken ?Type glipizide 5 mg tablet 5 mg PO DAILY diabetes 07/18 Unknown History aspirin 81 mg capsule 81 mg PO DAILY preventative 03/06/24 Unknown History insulin human U-100 NPH-regulr 5 unit subcut BID diabe cecil 03/06/24 Unknown History 70-30 mix 100 unit/mL subcutaneous susp (Humulin 70/30 U-100 Insulin) empagliflozin 10 mg tablet 10 mg PO DAILY 30 days #30 tabs 03/09/24 Unknown Rx (Jardiance) bumetanide 2 mg tablet 2 mg PO BID water pill 90 da ys 03/20/24 Unknown Rx #180 tabs carvedilol 6.25 mg tablet 6.25 mg PO BID 90 days #180 tabs 03/20/24 Unknown Rx lisinopril 5 mg tablet 5 mg PO BID 90 days #180 tab s 03/20/24 Unknown Rx spironolactone 25 mg tablet 25 mg PO DAILY 90 days #90 tabs 03/20/24 Unknown Rx Allergy/AdvReac Type Severity Reaction Status Date / Time No Known Allergies Allergy Verified 03/21/25 16:12 Family History Mother Cancer Glaucoma Brother Aortic aneurysm Father Myocardial infarction Sister Cancer Sister Cardiomyopathy Brother Pulmonary fibrosis Surgical History History of ankle surgery History of foot surgery History of tonsillectomy Social History household members: none Smoking Status: Never smoker alcohol intake: never substance use type: does not use caffeine: Yes Type: carbonated beverages Number of servings: 1 ROS ROS ED ROS Narrative dyspnea Constitutional Constitutional ED: Denies chills or fever(s) Eyes Eyes: Denies blurry vision ENT ENT ED: Denies ear pain Cardiovascular Cardiovascular: Reports orthopnea; Denies chest pain Respiratory/Chest Respiratory/Chest: Reports dyspnea, dyspnea on exertion and orthopnea; Denies cough Gastrointestinal Gastrointestinal: Denies abdominal pain Genitourinary Genitourinary ED: Denies dysuria or hematuria Musculoskeletal Musculoskeletal: Denies arthralgias Integumentary Denies abscess Neurologic Neurologic: Denies headache(s) Psychiatric Psychiatric: Denies anxiety Endocrine Endocrinology: Denies cold intolerance Hematologic/Lymphatic Hematologic/Lymphatic: Denies easy bleeding, easy bruising or lymphadenopathy Allergic/Immunologic Allergic/Immunologic ED: Denies mouth swelling, tongue swelling or urticaria EXAM Physical Exam Narrative Exam Narrative: 69-year-old male sitting upright in bed. Vital signs are stable he is afebrile he is not septic or toxic. His pulse ox on 5 L is 95%. H EENT exam pupils are react light. Moist use membranes. Neck nontender no JVD. Lungs clear to auscultation bilaterally. Heart regular rhythm rate about 85 no murmur. Chest wall ribs nontender. Abdomen soft nontender. No peritoneal signs. Obese. Moving all 4 extremities 1+ pitting edema bilaterally. He states this is his baseline. Dorsi plantarflexion intact normal academic administrator strength. Neurologically he is awake and alert. Answering questions following commands. Back nontender. Const Vital Signs: 03/21/25 16:12 03/21/25 16:49 03/21/25 16:49 Temperature 97.6 F L Temperature Source Temporal Pulse Rate 85 Respiratory Rate 24 H 20 H Respiratory Effort Respiratory Depth Respiratory Pattern Blood Pressure 112/78 Blood Pressure Mean 89 Pulse Ox 95 96 Oxygen Delivery Method Nasal Cannula Room Air Room Air Oxygen Flow Rate (L/min) 5 03/21/25 16:49 03/21/25 17:30 03/21/25 18:00 Temperature Temperature Source Pulse Rate 79 76 Respiratory Rate 24 H 28 H Respiratory Effort Short of Breath Respiratory Depth Normal Respiratory Pattern Normal Blood Pressure 147/125 H 146/133 H Blood Pressure Mean 132 139 Pulse Ox 99 99 Oxygen Delivery Method Room Air Nasal Cannula Oxygen Flow Rate (L/min) 6 03/21/25 19:00 03/21/25 20:00 03/21/25 20:20 Temperature 97.9 F Temperature Source Pulse Rate 78 80 79 Respiratory Rate 23 H 23 H 24 H Respiratory Effort Respiratory Depth Respiratory Pattern Blood Pressure 90/55 L 93/53 L 93/53 L Blood Pressure Mean 66 66 66 Pulse Ox 100 96 96 Oxygen Delivery Method Nasal Cannula Nasal Cannula Oxygen Flow Rate (L/min) 4 4 Positive well nourished, well developed and obese; Negative for cachectic, contractures or unkempt General Appearance ED: well developed; Negative for unkempt, cachectic, contractures or pallor Nutritional Appearance: obese; Negative for cachectic HEENT Reports moist mucous membranes atraumatic Eyes PERRL and EOMs intact bilaterally Neck no lymphadenopathy, supple, no meningeal signs and no JVD Resp normal respiratory effort and clear to auscultation bilaterally Cardio regular rate, regular rhythm, S1 normal heart sound, S2 normal heart sound and no murmurs GI non-tender, non-distended and no masses Auscultation: normoactive bowel sounds Palpation: soft; Negative for tender, guarding or rebound tenderness present Back/Spine no CVA tenderness and normal to inspection Extremity General Extremety ED: Yes edema; Negative for tenderness General Extremity: edema Neuro oriented x3 and CN's II-XII intact bilaterally Sensorium / Orientation: alert, oriented to person, oriented to place and oriented to time Motor Exam: strength 5/5 throughout Psych mental status grossly normal Appearance: Negative for unkempt Skin no wounds and skin turgor normal General Skin Exam: Negative for jaundice or pallor Lesions: no lesions Rashes: no rashes MDM MDM MDM Narrative Medical decision making narrative: 69-year-old male hypoxic shortness of breath. Patient has extensive past medical cardiac history. This could be secondary to CHF, effusions he had a prior PE currently is on blood thinners as a possibility versus others. Cardiac workup we obtained initially with a chest x-ray of renal specific because he may need a CTA. Repeat exam patient is resting comfortably sitting upright in a chair. Currently he is on 4 to 5 L of oxygen is in the mid 90s. He is normally not on oxygen at home during the day chest at night has had increasing oxygen requirement recently. I think this is secondary to CHF. They have him dehydrated currently his BUN and creatinine are much higher than his baseline. The patient will need to be admitted for further evaluation diuresis which is to be difficult given his current BUN and creatinine and blood pressure. History & Record Review Discussion w/independent historian: Patient Additional record(s) reviewed:: Prior inpatient record, Prior outpatient record, Prior ED visit and Prior labs Lab Data Attestation: I reviewed the patient's lab results. Lab results narrative: CBC shows white count 6.1. H&H 12.2 and 38. Platelets 165. Chemistries show potassium of 5.4. BUN and creatinine are 113 and 2.21 significantly higher than his baseline. Glucose 137. Troponin of 548 and 559. BNP of 31,000 537. Chest x-ray mild CHF. Labs: Laboratory Results - last 24 hr 03/21/25 03/21/25 03/21/25 16:24 16:39 18:30 WBC 6.1 RBC 4.13 L Hgb 12.2 L Hct 38.0 L MCV 92.0 MCH 29.5 MCHC 32.1 RDW Std Deviation 50.3 H RDW Coeff of Paddy 14.8 H Plt Count 165 MPV 11.1 Immature Gran % (Auto) 0.500 Neut % (Auto) 83.3 H Lymph % (Auto) 7.5 L Hendricks % (Auto) 7.5 Eos % (Auto) 1.0 Baso % (Auto) 0.2 Absolute Neuts (auto) 5.1 Absolute Lymphs (auto) 0.46 L Nucleated RBC % 0 Sodium 134 Potassium 5.4 H Chloride 97 L Carbon Dioxide 24.9 Anion Gap 12 BUN 113 H* Creatinine 2.21 H Est GFR (MDRD) Non-Af 31 L BUN/Creatinine Ratio 51.1 H Glucose 137 H Calcium 8.4 Troponin T High Sens 548 H* Troponin T Hi Sens 2 Hr 559 H* [place] [address] H Radiography Chest X-Ray - ED: 2 View, Read by ED Physician, Mediastinum, Bony Structures, Chronic Changes, Cardiomegaly and CHF Diagnostic Testing: Clinical Impression(s) from Imaging Studies Chest X-Ray 03/21/25 17:00 IMPRESSION: Patchy opacity within right lower lung with bilateral basilar atelectasis concerning for underlying infectious/inflammatory process. Attention on follow-up imaging is recommended. Reading Location: [facility] Chest x-ray, portable, shows cardiomegaly. Mild CHF. No effusions. No pneumonias. Interpreted by myself. Rhythm Strip Rhythm Strip: Sinus Rhythm Rate: 82 Ectopy: None EKG Initial EKG: Attestation: I personally reviewed and interpreted this EKG as follows: Interpretation: Sinus Rhythm, No Acute Injury Pattern and LBBB Comments: Normal sinus rhythm. Rate 82. Left bundle branch block. No acute signs of NM or ischemia. Discharge Plan Dx/Rx/DC Orders Clinical Impression: Breath shortness, Hypoxia, CHF (congestive heart failure), Hx of cardiomyopathy, Acute kidney injury Disposition Disposition: Acute Care [facility]
--- NOTE | 2025-03-21 17:00 | RAD_ITS ---
PROCEDURE: CHEST 1 VIEW (PORTABLE) 03/21/2025 REASON FOR EXAM: SOB TECHNIQUE: Frontal view of the chest. COMPARISON: Chest x-ray 03/06/2024 FINDINGS: Hardware: Monitoring electrodes overlying chest wall. Heart: Heart size is moderately enlarged. Lungs: Patchy airspace opacities within right lower lung. Probable trace right pleural effusion. Bones: Degenerative changes of bilateral shoulder joints and spine. RAD/Chest 1 View (Portable) IMPRESSION: Patchy opacity within right lower lung with bilateral basilar atelectasis davi rning for underlying infectious/inflammatory process. Attention on follow-up imaging is recommended. Reading Location: [id number]
[2025-03-21 17:41] LABS: Anion Gap 12 (5-15); BUN 113 mg/dL (4-19); BUN/Creat Ratio 51.1 RATIO (10-20); Calcium,Total 8.4 mg/dL (7.6-11.0); Carbon Dioxide 24.9 mmol/L (21.0-32.0); Chloride 97 mmol/L (98-108); Glucose 137 mg/dL (70-99); Potassium 5.4 mmol/L (3.3-5.1); Troponin T High Sensitivity 548 ng/L (<=22)
[2025-03-21 17:43] LABS: Pro- Brain NATRIURETIC PEPTIDE 31537 pg/mL (<=900)
[2025-03-21 19:08] LABS: Troponin T High Sens 2 HR 559 ng/L (<=22)
--- NOTE | 2025-03-21 20:26 | HP.PCM.HOS_ITS ---
HPI - General General Date of Admission: 03/21/25 Date of Service: 03/21/25 Chief Complaint: Dyspnea, worse with exertion. HPI Narrative The patient is a 69 y/o M w/ PMHx: HTN, HLD, Chronic BL LE PVD/Lymphedema, Valvular Heart Disease, Hx VTE ( DVT, PE), Diabetes melltitus type II, CKD stage III unclear subtype per GFR trending, Chronic normocytic anemia, HFrEF/Nonischemic cardiomyopathy, Obesity hypoventilation syndrome/ANDRADE w/ Chronic Hypoxic and Hypercarbic Respiratory Failure (5-6L NC) qHS with CPAP (supposed to be changing to BIPAP but has been having issues obtaining the machine set-up) who presents to the [facility] ED on 03/21/2025 with significant dyspnea, worse with exertion, also worse when he attempts to lay flat with no recent associated cough with increased fatigue and malaise prompting eventual ED evaluation to be cautious. He does not endorse increased weight gain of note. He reports chronic BL LE, L>R (because of prior ankle fx) that is stable. Workup in the ED included T97.6, heart rate 85, BP 112/78, respiratory rate 24, 95% on 5 L nasal cannula with previous records reported usage of 5 to 6 L but reportedly this is only at night, transiently in the ED increasing to 6 L at 99% oxygenation with most recent repeat vitals heart rate 80, BP 93/53, respiratory rate 23, 96% on 4 L nasal cannula, CBC with WC 6.1, hemoglobin 12.2, MCV 92, platelet 165 with lymphopenia, BMP with potassium 5.4, chloride 97, BUN/creatinine 113/2.21, GFR 31, glucose 137, troponin initial 548 with repeat 2-hour delta 559, NT proBNPII 31,537, chest x-ray with patchy opacity within the right lower lung with bilateral bibasilar atelectasis concerning for underlying infectious/inflammatory process, EKG with SR with LBBB with no acute evidence of ischemia. [facility] Medical History ANDRADE (obstructive sleep apnea) HLD (hyperlipidemia) HTN (hypertension) Non-ischemic cardiomyopathy Morbid obesity with BMI of 50.0-59.9, adult Moderate aortic valve stenosis Controlled type 2 diabetes mellitus with hyperglycemia Dilated cardiomyopathy Walking difficulty due to ankle and foot Wound healing, delayed Vitamin D deficiency Pulmonary embolism Congestive heart failure Aortic valve disease Lymphedema Venous insufficiency of both lower extremities Sleep apnea Super obesity Hyperlipidemia Home Medications ?Medication ?Instructions ?Recorded ?Last Taken ?Type glipizide 5 mg tablet 5 mg PO DAILY diabetes 07/18 Unknown History aspirin 81 mg capsule 81 mg PO DAILY preventative 03/06/24 Unknown History insulin human U-100 NPH-regulr 5 unit subcut BID diabe cceil 03/06/24 Unknown History 70-30 mix 100 unit/mL subcutaneous susp (Humulin 70/30 U-100 Insulin) empagliflozin 10 mg tablet 10 mg PO DAILY 30 days #30 tabs 03/09/24 Unknown Rx (Jardiance) bumetanide 2 mg tablet 2 mg PO BID water pill 90 da ys 03/20/24 Unknown Rx #180 tabs carvedilol 6.25 mg tablet 6.25 mg PO BID 90 days #180 tabs 03/20/24 Unknown Rx lisinopril 5 mg tablet 5 mg PO BID 90 days #180 tab s 03/20/24 Unknown Rx spironolactone 25 mg tablet 25 mg PO DAILY 90 days #90 tabs 03/20/24 Unknown Rx Allergy/AdvReac Type Severity Reaction Status Date / Time No Known Allergies Allergy Verified 03/21/25 16:12 Family History Mother Cancer Glaucoma Brother Aortic aneurysm Father Myocardial infarction Sister Cancer Sister Cardiomyopathy Brother Pulmonary fibrosis Surgical History History of ankle surgery History of foot surgery History of tonsillectomy Social History household members: none Smoking Status: Never smoker alcohol intake: never substance use type: does not use caffeine: Yes Type: carbonated beverages Number of servings: 1 ROS ROS Narrative Admission Review of Systems: CONSTITUTIONAL: No weight loss, fever, chills, + weakness or fatigue. HEENT: Eyes: No visual loss, blurred vision, double vision or yellow sclerae. Ears, Nose, Throat: No hearing loss, sneezing, congestion, runny nose or sore throat. SKIN: No rash or itching, lesions, wounds. CARDIOVASCULAR: + Orthopnea, bilateral lower extremity lymphedema, pitting edema chronically left greater than right which is baseline. No chest pain, chest pressure or chest discomfort, palpitations, syncopal events. RESPIRATORY: + Dyspnea, worse with exertion. No marked cough or sputum, wheezing, hemoptysis. GASTROINTESTINAL: No anorexia, nausea, vomiting or diarrhea, abdominal pain, melena, BRBPR. GENITOURINARY: No dysuria, frequency, urgency or retention. NEUROLOGICAL: No headache, dizziness, syncope, paralysis, ataxia, numbness or tingling in the extremities, focal weakness, change in bowel or bladder control, seizure. MUSCULOSKELETAL: + muscle, back pain, joint pain or stiffness. HEMATOLOGIC: + Chronic anemia, easy bleeding/bruising. LYMPHATICS: No enlarged nodes. No history of splenectomy. PSYCHIATRIC: No history of depression or anxiety. ENDOCRINOLOGIC: No reports of sweating, cold or heat intolerance. No polyuria or polydipsia. ALLERGIES: No history of asthma, hives, eczema or rhinitis. Vital Signs Vital Signs Vital Signs: 03/21/25 16:12 03/21/25 16:49 03/21/25 16:49 Temperature 97.6 F L Temperature Source Temporal Pulse Rate 85 Respiratory Rate 24 H 20 H Respiratory Effort Respiratory Depth Respiratory Pattern Blood Pressure 112/78 Blood Pressure Mean 89 Pulse Ox 95 96 Oxygen Delivery Method Nasal Cannula Room Air Room Air Oxygen Flow Rate (L/min) 5 03/21/25 16:49 03/21/25 17:30 03/21/25 18:00 Temperature Temperature Source Pulse Rate 79 76 Respiratory Rate 24 H 28 H Respiratory Effort Short of Breath Respiratory Depth Normal Respiratory Pattern Normal Blood Pressure 147/125 H 146/133 H Blood Pressure Mean 132 139 Pulse Ox 99 99 Oxygen Delivery Method Room Air Nasal Cannula Oxygen Flow Rate (L/min) 6 03/21/25 19:00 03/21/25 20:00 03/21/25 20:20 Temperature 97.9 F Temperature Source Pulse Rate 78 80 79 Respiratory Rate 23 H 23 H 24 H Respiratory Effort Respiratory Depth Respiratory Pattern Blood Pressure 90/55 L 93/53 L 93/53 L Blood Pressure Mean 66 66 66 Pulse Ox 100 96 96 Oxygen Delivery Method Nasal Cannula Nasal Cannula Oxygen Flow Rate (L/min) 4 4 Physical Exam Narrative Physical Examination: General: Awake, alert, oriented x 3 and cooperative, seated upright in the ED bedside chair, does report that he sleeps normally in a bed but has to lay on his left side and this is chronic. Skin: Normal color, normal turgor, no icterus, no cyanosis except occasional stage ecchymoses, abrasions, notable bilateral lower extremity venous stasis skin changes. HEENT: AT/NC, EOMI, PERRLA, MMM, no appreciated carotid bruits, difficult to discern JVD given thickened neck Lungs: Notably diminished, distant, likely secondary to habitus, mildly increased respiratory rate but no distress, no r markedly appreciated ales, ronchi or wheezing. Heart: Regular rate and rhythm; no gallop, rub audible. Abdomen: Soft, morbidly obese, NTTP, distant BS, difficult to discern distention and HSM given habitus. Extremities: No cyanosis, no clubbing, see skin, notable bilateral extremity pedal to mid murry 1-2+ pitting edema, chronic, left greater than right which is also stable chronic secondary to previous fracture Neurological: Patient awake, alert, oriented as no, cognitive function intact; pupils equally reactive to light and accommodation, cranial nerves grossly normal, moving all 4 extremities, no focal deficits, strength moderately to severely globally decreased Psychiatric: Affect appears fatigued otherwise normal, no acute evidence of depressive or anxiety feelings. Results Lab / Micro Data 03/21/25 16:24 03/21/25 16:24 Labs: Laboratory Results - last 24 hr 03/21/25 16:24: WBC 6.1, RBC 4.13 L, Hgb 12.2 L, Hct 38.0 L, MCV 92.0, MCH 29.5, MCHC 32.1, RDW Std Deviation 50.3 H, RDW Coeff of Paddy 14.8 H, Plt Count 165, MPV 11.1, Immature Gran % (Auto) 0.500, Neut % (Auto) 83.3 H, Lymph % (Auto) 7.5 L, Gordon % (Auto) 7.5, Eos % (Auto) 1.0, Baso % (Auto) 0.2, Absolute Neuts (auto) 5.1, Absolute Lymphs (auto) 0.46 L, Nucleated RBC % 0, Sodium 134, Potassium 5.4 H, Chloride 97 L, Carbon Dioxide 24.9, Anion Gap 12, BUN 113 H*, Creatinine 2.21 H, Est GFR (MDRD) Non-Af 31 L, BUN/Creatinine Ratio 51.1 H, Glucose 137 H, Calcium 8.4, Troponin T High Sens 548 H* 03/21/25 16:39: [place] [address] H 03/21/25 18:30: Troponin T Hi Sens 2 Hr 559 H* Rhythm Strip Rhythm Strip: Sinus Rhythm Rate: 82 Ectopy: None Imaging Radiology Impression Chest X-Ray 03/21/25 17:00 IMPRESSION: Patchy opacity within right lower lung with bilateral basilar atelectasis concerning for underlying infectious/inflammatory process. Attention on follow-up imaging is recommended. Reading Location: [id number] Assessment & Plan Assessment/Plan (1) NSTEMI, initial episode of care: PLAN: Plan The patient is a 69 y/o M w/ PMHx: HTN, HLD, Chronic BL LE PVD/Lymphedema, Valvular Heart Disease, Hx VTE ( DVT, PE), Diabetes melltitus type II, CKD stage III unclear subtype per GFR trending, Chronic normocytic anemia, HFrEF/Nonischemic cardiomyopathy, Obesity hypoventilation syndrome/ANDRADE w/ Chronic Hypoxic and Hypercarbic Respiratory Failure (5-6L NC) qHS with CPAP (supposed to be changing to BIPAP but has been having issues obtaining the machine set-up) who presents to the [facility] ED on 03/21/2025 with significant dyspnea, worse with exertion, also worse when he attempts to lay flat with no recent associated cough with increased fatigue and malaise prompting eventual ED evaluation to be cautious. #1. Dyspnea, worse with exertion w/ Acute NSTEMI with questionable #2, #3, #4, #5,: EKG with SR with LBBB with no acute evidence of ischemia., chest x-ray with patchy opacity within the right lower lung with bilateral bibasilar atelectasis concerning for underlying infectious/inflammatory process, trop elevated, initial 548 with repeat delta 559. Will admit to PCU, maintain on a monitored bed, continue serial cardiac enzymes and EKGs. Obtain magnesium level upon admission. Initiate and continue on heparin drip. ECHO requested. Certainly could be demand given #2 however unable to safely consider diuresing at this point given low blood pressure and with loath to make renal function worsen. Will await cardiology input. Duplex US BL LE requested. #2. Questionable HFrEF/Nonischemic cardiomyopathy exacerbation: Most recent echocardiogram noted 05/20/2024 with severely dilated LV cavity, severe LV concentric hypertrophy, severe generalized hypokinesis LV, LVEF 35%, moderate global RV systolic dysfunction, severely dilated LA, RA mildly enlarged, moderate to severe aortic valve calcification, aortic valve peak gradient 42.9 mmHg unchanged from previous 01/2024 echo, mildly dilated aortic root. Upon ED evaluation weights not obtained thus unclear if there is been significant weight gain, patient does report dyspnea and the BNP is elevated however this is in the setting of NSTEMI although could be demand if he has been hypoxic but uncertain, unfortunately blood pressure is on the lower end and his kidney function is mildly increased from baseline thus loath to administer any diuretic therapy at this time, holding all hypertensive regimen given lower blood pressure, will continue aspirin, heparin drip as noted, magnesium level requested, TSH requested, echocardiogram requested, FLP in AM. Will initiate on BiPAP although again unclear if this is truly an exacerbation. Cardiology consulted. #3. Atypical chest x-ray patchy opacity right lower lobe, bilateral basilar atelectasis: Unclear exact etiology, possibly infectious versus inflammatory, no overt significant overload fluid palm, BNP however is elevated with some concern as noted, will obtain full respiratory viral panel be cautious, will have as needed albuterol, encourage head of bed, I-S, procalcitonin requested although may be altered given renal function, if onset of fever low threshold to initiate antibiotic therapy and obtain induced sputum culture/urine antigens. #4. Acute renal insufficiency/elevated creatinine on CKD stage III unclear subtype per GFR trending: Admission BUN/creatinine 113/2.21, GFR 31, baseline creatinine previously most recently noted to be 1.5-1.7, even with increase of 1.5 above the level of 1.5 patient does not reach up to 2.25 which be consistent with acute kidney injury, given presentation some concern for overload given orthopnea as noted will very judiciously hydrate if necessary, hold nephrotoxic medication in case worsens and repeat CMP in AM. #5. Hyperkalemia, mild: Admission potassium 5.4, not noted to be hemolyzed, will initiate judicious hyperkalemic protocol with albuterol, insulin/dextrose, calcium gluconate and repeat level in 4 hours. #6. Chronic normocytic anemia: Admission hemoglobin 12.2, MCV 92, baseline hemoglobin previously had been primarily 9-12, most recently however 03/07/2024 hemoglobin 13.7 however this is remote, will continue to trend CBC to further elucidate current chronic baseline level. #7. Valvular heart disease: Most recent echocardiogram noted 05/20/2024 with severely dilated LV cavity, severe LV concentric hypertrophy, severe generalized hypokinesis LV, LVEF 35%, moderate global RV systolic dysfunction, severely dilated LA, RA mildly enlarged, moderate to severe aortic valve calcification, aortic valve peak gradient 42.9 mmHg unchanged from previous 01/2024 echo, mildly dilated aortic root. Repeat echocardiogram requested as noted above. #8. History VTE: Patient with history of previous DVT, PE, per current list does not appear to be chronically anticoagulated, as noted maintain on a heparin drip. Duplex US BL LE requested as noted. #9. Chronic BL LE PVD/lymphedema: Will place snug allen wraps with lower extremity elevation. #10. Diabetes mellitus type II: Hold oral home regimen, continue home insulin regimen, ADA diet, accu checks w/ ISS. #11. Hypertension: BP in the ED significantly decreased, systolic in the 90s, will temporally hold all hypertensive regimen, add back once clinically appropriate. #12. Hyperlipidemia: Per current list does not appear to be on statin therapy, no noted allergy, clarified to be certain. #13. Morbid Obesity: Weight loss and lifestyle changes encouraged. #14. ANDRADE: Uses chronic supplemental oxygen in the evening with CPAP however has been attempting to get his BiPAP set up but been having several month difficulties of getting machine obtained. Given presentation will initiate on BiPAP. #15. DVT prophylaxis: Heparin drip as noted. #16. CODE status: Patient does not have a healthcare part returning but notes his would be his medical decision-maker if necessary, he does report having a living will however in place. Discussed CODE status at length including difference between FULL code, DNR-CCA and DNR-CC status. Following discussions about the differences in these status, requested DNR-CCA and following further discussions opted for short-term intubation and reversible settings only. Advanced Care Planning Face to Face Time: 16 minutes. Charges/Coding Visit Charges Inpatient E&M: 61294 Init Hosp L3 Procedures Hospitalists Procedures: 53726 Advncd Care Plan 30 Min
--- OUTSIDE RECORDS SUMMARY | 2025-03-21 20:36 | XMS RPT_ITS | CCD ---
Author Organization [facility] Care Team Providers Care Patient Safety Manager Name Role Phone DAWSON OLSEN Unavailable Unavailable SEESEMARK Unavailable Unavailable SEESE MARK Q Unavailable Unavailable KAILYN ENRIQUEZ Unavailable Unavailable KAILYN ENRIQUEZ Unavailable Unavailable DAWSON OLSEN Unavailable Unavailable CROW DIOR Unavailable Unavailable UNASSIGNED, DOCTOR Unavailable Unavailable CROW DIOR Unavailable Unavailable UNASSIGNED, DOCTOR Unavailable Unavailable GLENNA, DR BOZENA French Attending Unavaila umer MANZANARES, DR BOZENA French Primary Care Unavaila umer MANZANARES, DR BOZENA French Admitting Unavaila umer OLSEN, DR DAWSON CHILEL Consulting Unavailable PROVIDER, UNKNOWN Consulting Unavailable PRETTY CHILEL, DR DAWSON Raman Primary Care Physician Rekha juan alberto GRIMM MD, JEREMIE Larsen Attending Unavailnancie OLSEN MD, DR DAWSON Raman Primary Care Unavailyoel OLSEN MD, DR DAWSON Raman Primary Care Unavailyoel BENITEZ MD, DR JULIEN Admitting Navin BENITEZ MD, DR JULIEN Attending Navin GIL PA-C, REBEKAH Consulting Unavaila HILTON De La Cruz MD Consulting Unavailable ALFA CHILEL, JEREMIE Larsen Consulting Unavailnancie DODD MD, MARY Consulting Unavailable KRISTIN CHILEL, ADARSH Consulting Unavailable TAYLOR CHILEL, IRENE Consulting Unavailable HILTON OLVERA MD Attending Unavailable PRETTY CHILEL, DR DAWSON Raman Primary Care UnavailDawson Villalobos Referring Unavailable Roof BIODIESEL OPERATIONS MANAGER, Chidi Lopez Attending Unavailable Dawson Olsen Primary Care Unavailable Dawson Olsen Primary Care Unavailable Dawson Olsen Referring Unavailable Sofia Garg Attending Unavailable Sofia Garg Attending Unavailable Dawson Olsen Primary Care Unavailable Pretty, Dawson Primary Care Unavailable ForestSofia lópez Attending Unavailable ForestSofia lópez Consulting Unavailable Elver Bradley Admitting Unavailable Elver Bradley Attending Unavailable Pretty, Dawson Primary Care Unavailable Elver Bradley Consulting Unavailable Roof BIODIESEL OPERATIONS MANAGER, Chidi Lopez Referring Unavailable Roof BIODIESEL OPERATIONS MANAGER, Chidi Lopez Attending Unavailable Pretty, Dawson Primary Care Unavailable Pretty, Dawson Primary Care Unavailable Forest, Sofia Consulting Unavailable Elver Bradley Attending Unavailable Elver Bradley Admitting Unavailable ForestSofia lópez Attending Unavailable Medications Current Medications Medication Drug Class(es) Dates Sig (Normalized) Sig (Original) aspirin 81 mg chewable tablet (2 sources) Platelet Aggregation Inhibitor, Nonsteroidal Anti-inflammatory Drug Start: 08-19-2022 aspirin 81 mg oral tablet, chewable Dose : 81 mg = 1 tab(s), Oral, qDayM, # 30 tab(s), 11 Refill(s), Pharmacy: [facility], 177.8, cm, 08/06/22 17:47:00 EST, Height Start Date: 08/19/22 Status: Ordered carvedilol 25 mg oral tablet (2 sources) alpha-Adrenergic Ez, beta-Adrenergic Ez Start: 08-06-2022 carvedilol 25 mg oral tablet Dose : 25 mg = 1 tab(s), Oral, BID Start Date: 08/06/22 Status: Ordered glipiZIDE 5 mg oral tablet (2 sources) Sulfonylurea Start: 08-06-2022 glipiZIDE 5 mg oral tablet Dose : 5 mg = 1 tab(s), Oral, qAM Start Date: 08/06/22 Status: Ordered hydrALAZINE hydrochloride 50 mg oral tablet (2 sources) Arteriolar Vasodilator Start: 08-06-2022 hydrALAZINE 50 mg oral tablet Dose : 50 mg = 1 tab(s), Oral, TID Start Date: 08/06/22 Status: Ordered insulin isophane / insulin, regular, human (2 sources) Insulin Start: 08-16-2022 NovoLIN 70/30 See Instructions, Sliding Scale subQ Once Daily BG 250, 20 units BG >300, 25units, 0 Refill(s) Start Date: 08/16/22 Status: Ordered Problems Active Problems Problem Classification Problem Date Documented Da te Episodic/Chronic Aortic; peripheral; and visceral artery aneurysms (3 sources) Aneurysm of ascending aorta; Translations: [Aneurysm of the ascending aorta, without rupture] Chronic Chronic kidney disease (2 sources) Chronic kidney disease stage 3; Translations: [Chronic kidney disease, stage 3 unspecified] Onset: 03-11-2024 Chronic Congestive heart failure; nonhypertensive (3 sources) Acute on chronic combined systolic and diastolic heart failure; Translations: [Acute on chronic combined systolic (congestive) and diastolic (congestive) heart failure] Onset: 03-11-2024 Chronic Crushing injury or internal injury (2 sources) Injury of kidney 02-01-2021 Episodic Diabetes mellitus with complications (1 source) Chronic kidney disease due to type 2 diabetes mellitus; Translations: [Type 2 diabetes mellitus with diabetic chronic kidney disease] Chronic Diabetes mellitus with complications (2 sources) Diabetes mellitus with complications; Translations: [Type 2 diabetes mellitus with diabetic polyneuropathy] Onset: 04-20-2018 Diabetes mellitus without complication (2 sources) Type 2 diabetes mellitus 06-03-2016 Chronic E Codes: Adverse effects of medical drugs (2 sources) Diagnostic agent adverse reaction; Translations: [Adverse effect of diagnostic agents, initial encounter] Episodic Essential hypertension (2 sources) Hypertensive disorder 05-24-2016 Chronic Fluid and electrolyte disorders (2 sources) Alkalosis; Translations: [Alkalosis] Episodic Heart valve disorders (4 sources) Aortic valve disorder; Translations: [Nonrheumatic aortic valve disorder, unspecified] Onset: 03-11-2024 05-24-2016 Chronic Hypertension with complications and secondary hypertension (1 source) 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; Translations: [Hypertensive heart and chronic kidney disease with heart failure and stage 1 through stage 4 chronic kidney disease, or unspecified chronic kidney disease] Chronic Osteoarthritis (2 sources) Osteoarthritis 12-26-2016 Chronic Other lower respiratory disease (2 sources) Pulmonary edema 12-26-2016 Chronic Other lower respiratory disease (1 source) Solitary nodule of lung; Translations: [Solitary pulmonary nodule] Episodic Other nervous system disorders (2 sources) Paresthesia of hand 05-24-2016 Episodic Other non-traumatic joint disorders (2 sources) Ankle instability 05-24-2016 Episodic Comment on above: Left Other nutritional; endocrine; and metabolic disorders (1 source) Extreme obesity with alveolar hypoventilation; Translations: [Morbid (severe) obesity with alveolar hypoventilation] Chronic Other nutritional; endocrine; and metabolic disorders (1 source) Body mass index 40+ - severely obese; Translations: [Body mass index (BMI) 50.0-59.9, adult] Chronic Other nutritional; endocrine; and metabolic disorders (3 sources) Morbid obesity; Translations: [Morbid (severe) obesity due to excess calories] Chronic Other nutritional; endocrine; and metabolic disorders (1 source) Morbid (severe) obesity due to excess calories; Translations: [Morbid (severe) obesity due to excess calories] Onset: 03-11-2024 Chronic Other nutritional; endocrine; and metabolic disorders (1 source) Body mass index (BMI) 50.0-59.9, adult; Translations: [Body mass index [BMI] 50.0-59.9, adult] Onset: 03-11-2024 Chronic [place]-; endo-; and myocarditis; cardiomyopathy (except that caused by tuberculosis or sexually transmitted disease) (7 sources) Cardiomyopathy; Translations: [Cardiomyopathy, unspecified] Onset: 03-11-2024 Chronic Pulmonary heart disease (1 source) Pulmonary hypertension; Translations: [Pulmonary hypertension, unspecified] Chronic Pulmonary heart disease (1 source) H/O: pulmonary embolus; Translations: [Personal history of pulmonary embolism] Episodic Residual codes; unclassified (2 sources) Obstructive sleep apnea syndrome 06-03-2016 Chronic Residual codes; unclassified (2 sources) Obstructive sleep apnea (adult) (pediatric); Translations: [Obstructive sleep apnea (adult) (pediatric)] Onset: 03-11-2024 Chronic Residual codes; unclassified (1 source) Not for resuscitation; Translations: [Do not resuscitate] Episodic Residual codes; unclassified (2 sources) Edema of lower extremity 05-24-2016 Episodic Residual codes; unclassified (2 sources) Family history of dissection of aorta 02-01-2021 Episodic Respiratory failure; insufficiency; arrest (adult) (5 sources) [id number] respiratory failure; Translations: [Acute and chronic respiratory failure with hypercapnia] Onset: 03-11-2024 Chronic Skin and subcutaneous tissue infections (2 sources) Cellulitis 06-03-2016 Episodic Comment on above: left leg occured in Feb 2016 Unclassified (1 source) Unknown / UNK(Unknown) Onset: 12-21-2016 Unclassified (1 source) Charcot's joint, left ankle and foot / M14.672(ICD-10) Onset: 04-20-2018 Unclassified (1 source) [facility] compl of other internal joint prosthesis, init encntr / T84.098A(ICD-10) Onset: 04-20-2018 Past or Other Problems Problem Classification Problem Date Documented Da te Episodic/Chronic Acute and unspecified renal failure (2 sources) Acute renal failure syndrome; Translations: [Acute kidney failure, unspecified] Onset: 03-11-2024 Episodic Unclassified (1 source) I35.9 Onset: 12-21-2016 Unclassified (1 source) Charcot's joint, left ankle and foot; Translations: [Charcot's joint, left ankle and foot] Onset: 04-20-2018 Unclassified (1 source) [facility] compl of other internal joint prosthesis, init encntr; Translations: [[facility] compl of other internal joint prosthesis, init encntr] Onset: 04-20-2018 Results Test Name Value Interpretation Reference Range Facility Cardiology Visit Reporton Cardiology Visit Report [facility] [address] [place] [address] OFFICE VISIT Date of Service: 07/11/24 MR#: [id number] Acct: [id number] Name: SHEREE MUNIZ Rep #: [id number] : 1955 Provider: Dr. Sofia Garg MD Age/Sex: 69/M Location: [facility] Status: Signed HPI HPI History of Present Illness Details: This gentleman with history of hypertension, morbid obesity, nonischemic cardiomyopathy with congestive heart failure, diabetes mellitus and obstructive sleep apnea is here for follow-up visit. Denies any chest pains. Denies shortness of breath. Denies orthopnea or PND. He continues to have left lower extremity edema. Echocardiogram done last month showed ejection fraction of 35%. Moderate aortic valve stenosis. Intake Vital Signs 03/20/24 13:30 07/11/24 08:40 Height 5 ft 10.5 in 5 ft 10.5 in Weight: 345 lb BMI 48.8 BP 114/64 107/67 Blood Pressure Location Lt brachial Lt brachial Position Sitting Sitting Respiration 16 18 Pulse 68 74 Pulse Source NIBP NIBP Intake Visit Reasons: 3 M FU Manual Equipment Mechanic Required: No Accompanied by: Is patient in pain?: No Allergies No Known Allergies Allergy (Verified 07/11/24 11:06) Medications ???Medication ???Instructions ???Recorded ???Confirmed ???Type glipizide 5 mg tablet 5 mg PO DAILY diabetes 07/18/18 07/11/24 History aspirin 81 mg capsule 81 mg PO DAILY preventative 03/06/24 07/11/24 History insulin human U-100 NPH-regulr 5 unit subcut BID diabetes 03/06/24 07/11/24 History 70-30 mix 100 unit/mL subcutaneous susp (Humulin 70/30 U-100 Insulin) empagliflozin 10 mg tablet 10 mg PO DAILY 30 days #30 tabs 03/09/24 07/11/24 Rx (Jardiance) bumetanide 2 mg tablet 2 mg PO BID water pill 90 days 03/20/24 07/11/24 Rx #180 tabs carvedilol 6.25 mg tablet 6.25 mg PO BID 90 days #180 tabs 03/20/24 07/11/24 Rx lisinopril 5 mg tablet 5 mg PO BID 90 days #180 tabs 03/20/24 07/11/24 Rx spironolactone 25 mg tablet 25 mg PO DAILY 90 days #90 tabs 03/20/24 07/11/24 Rx Ejection fraction %: 35 Have you fallen in the past year?: Yes (no major injury) [facility] Medical History (Updated 07/11/24 @ 11:[address] Sofia Garg MD) ANDRADE (obstructive sleep apnea) HLD (hyperlipidemia) HTN (hypertension) Non-ischemic cardiomyopathy Morbid obesity with BMI of 50.0-59.9, adult Moderate aortic valve stenosis Controlled type 2 diabetes mellitus with hyperglycemia Dilated cardiomyopathy Walking difficulty due to ankle and foot Wound healing, delayed Vitamin D deficiency Pulmonary embolism Congestive heart failure Aortic valve disease Lymphedema Venous insufficiency of both lower extremities Sleep apnea Super obesity Hyperlipidemia Surgical History History of ankle surgery History of foot surgery History of tonsillectomy Family History Mother Cancer Glaucoma Brother Aortic aneurysm Father Myocardial infarction Sister Cancer Sister Cardiomyopathy Brother Pulmonary fibrosis Social History household members: none Smoking Status: Never smoker alcohol intake: never substance use type: does not use caffeine: Yes Type: carbonated beverages Number of servings: 1 ROS Const Const: Negative for fatigue, weakness, headache(s) or weight gain ENT ENT: Negative for headache(s), dizziness, Nosebleed/epistaxis or balance problems Cardio Chest Pain: No Palpitations: No Edema: Bilateral Muscle aches with walking: None Resp Respiratory: Negative for SOB with activity, SOB at rest or SOB orthopnea SOB lying down GI GI: Negative nausea, vomiting or heartburn Musc Musc: Negative for muscle aches/ myalgia, muscle weakness, joint pain or balance problems Neuro Neuro: Negative for dizziness, lightheadedness, near syncope, syncope, headache(s) or weakness Endo Endo: Negative for fatigue Cardiology Exam Const Appearance: comfortable and no acute distress Nutritional Appearance: obese Neck Neck: no JVD Carotids: Negative bruit Chest Auscultation: Bilateral: Clear to Auscultation Cardio Rate: regular rate Rhythm: regular rhythm Heart sounds: S1 normal and S2 normal GI GI: obese Neuro General: patient alert, patient awake and patient oriented x3 Extremities No ankle edema right lower extremity. Left lower extremity in a orthotic boot Supplemental Info Supplemental Information Echocardiogram 05/20/2024: Interpretation Summary Severely dilated left ventricular cavity. Severe left ventricular concentric hypertrophy. Severe generalized hypokinesis of the left ventricle. Estimated LVEF 35%. Moderate (more content not included)... Normal [facility] Echo Limited w/Contraston Echo Limited w/Contrast [facility] [address] [place] [address] Echo Limited w/Contrast 05/20/24 1303 MR#: [id number] Acct: [id number] Name: SHEREE MUNIZ Rep #: [id number] : 1955 68 From: Sofia Garg MD Attending Dr: Chidi Goins BIODIESEL OPERATIONS MANAGER-C Status: REG CLI Ordering Dr: Chidi Goins BIODIESEL OPERATIONS MANAGER BIODIESEL OPERATIONS MANAGER-C Date: 05/20/24 Location: [facility] Sex: M C Admitted: Reason For Study: Dilated Cardiomyopathy Procedure This was a limited 2D transthoracic echocardiogram. The study was technically difficult. Contrast injection was performed. Exam performed in department. Left Ventricle Severely dilated left ventricular cavity. Severe left ventricular concentric hypertrophy. Severe generalized hypokinesis of the left ventricle. Estimated LVEF 35%. Right Ventricle Normal RV size. Moderate global right ventricular systolic dysfunction. Atria Severely dilated left atrium. The right atrium is mildly enlarged. Mitral Valve Trivial mitral valve insufficiency. Tricuspid Valve The tricuspid valve is not well visualized. Aortic Valve Moderate to severe aortic valve calcification. Aortic valve peak gradient 42.9 mmHg, which is essentially unchanged from previous study in January 2024. Pulmonic Valve The pulmonic valve is not well visualized. Great Vessels Mildly dilated aortic root. Pericardium/Pleural No pericardial effusion. Medication 22 gauge I.V. with prn adaptor inserted into right arm. Diluted definity 4ml given slow IV push to enhance endocardial definition. MMode/2D Measurements Calculations LVIDd: 6.7 cm IVSd: 1.8 cm LVIDs: 5.5 cm LVPWd: 1.8 cm LVAd ap4: 58.8 cm2 FS: 17.4 % LVLd ap4: 10.9 cm EDV(MOD-sp4): 272.0 ml EDV(sp4-el): 269.6 ml LVAs ap4: 46.3 cm2 LVLs ap4: 11.1 cm ESV(MOD-sp4): 166.0 ml ESV(sp4-el): 164.6 ml EF(MOD-sp4): 39.0 % EF(sp4-el): 38.9 % SV(MOD-sp4): 106.0 ml SV(sp4-el): 105.0 ml SI(MOD-sp4): 40.3 ml/m2 Doppler Measurements Calculations Ao V2 max: 327.5 cm/sec Ao max P.9 mmHg ECHO/Echo Limited w/Contrast Interpretation Summary Severely dilated left ventricular cavity. Severe left ventricular concentric hypertrophy. Severe generalized hypokinesis of the left ventricle. Estimated LVEF 35%. Moderate global right ventricular systolic dysfunction. Severely dilated left atrium. The right atrium is mildly enlarged. Moderate to severe aortic valve calcification. Aortic valve peak gradient 42.9 mmHg, which is essentially unchanged from previous study in January 2024. Mildly dilated aortic root. The study was technically difficult. ___ Ordering Physician: Chidi Goins Referring Physician: Chidi Goins Performed By: Tani Kimbrough RCS 05/22/24 1206 Date Sofia Garg MD CC: LIZ Goins; Dr. Dawson Olsen MD Date Dictated: 05/20/24 1303 Date Transcribed: 05/22/24 1206 Guide: Signed Normal [facility] Cardiology Visit Reporton Cardiology Visit Report [facility] [address] [place] [address] OFFICE VISIT Date of Service: 03/20/24 MR#: [id number] Acct: [id number] Name: SHEREE MUNIZ Rep #: [id number] : 1955 Provider: LIZ garcia Age/Sex: 68/M [place] [facility] Status: Signed [facility] History of Present Illness Details: This is a 68-year-old male who presents to the office today for a posthospital follow-up. He was first seen in consultation in February 2024. He presented [facility] on 03/06/2024 for shortness of breath. BNP was elevated at 1794. He was admitted for further evaluation. He underwent an echocardiogram on 03/06/2024 that showed moderate to severe LVH, severely dilated LV, LVEF of 35%, mildly enlarged left atrium, mild mitral insufficiency, RVSP of 30 mmHg, moderate aortic root dilation measuring 4.8 cm. His medications were adjusted and discharged for outpatient follow-up. He has a past medical history of diabetes mellitus type 2, anemia, hyperlipidemia, lymphedema, hypertension, ANDRADE, and obesity. He has had previous cardiac workup at [facility]. He denies chest, arm, jaw, or neck discomfort. He denies palpitations. He denies bilateral lower extremity edema. He denies claudication. He denies shortness of breath with activity, shortness of breath at rest, orthopnea, or PND. He denies chronic cough. He denies significant, sudden weight gain. He denies lightheadedness, dizziness, near-syncope, or syncope. He denies blood in urine, blood in stool, or epistaxis. He denies fever with chills. He denies myalgia. He denies fatigue. His exercise level has remained stable. Intake Vital Signs 03/07/24 14:13 03/20/24 13:30 Height 5 ft 10.5 in 5 ft 10.5 in Weight: 345 lb BMI 48.8 BP 114/64 Blood Pressure Location Lt brachial Position Sitting Respiration 16 Pulse 68 Pulse Source NIBP Intake Visit Reasons: S/P [facility] 03/07 Manual Equipment Mechanic Required: No Accompanied by: Is patient in pain?: No Allergies No Known Allergies Allergy (Verified 03/20/24 13:44) Medications ???Medication ???Instructions ???Recorded ???Confirmed ???Type glipizide 5 mg tablet 5 mg PO DAILY diabetes 07/18/18 03/20/24 History aspirin 81 mg capsule 81 mg PO DAILY preventative 03/06/24 03/20/24 History insulin human U-100 NPH-regulr 5 unit subcut BID diabetes 03/06/24 03/20/24 History 70-30 mix 100 unit/mL subcutaneous susp (Humulin 70/30 U-100 Insulin) empagliflozin 10 mg tablet 10 mg PO DAILY 30 days #30 tabs 03/09/24 03/20/24 Rx (Jardiance) bumetanide 2 mg tablet 2 mg PO BID water pill 90 days 03/20/24 03/20/24 Rx #180 tabs carvedilol 6.25 mg tablet 6.25 mg PO BID 90 days #180 tabs 03/20/24 03/20/24 Rx lisinopril 5 mg tablet 5 mg PO BID 90 days #180 tabs 03/20/24 03/20/24 Rx spironolactone 25 mg tablet 25 mg PO DAILY 90 days #90 tabs 03/20/24 03/20/24 Rx Ejection fraction %: 35 Have you fallen in the past year?: No PFSH Medical History (Reviewed 03/20/24 @ 14:14 by Chidi Goins BIODIESEL OPERATIONS MANAGER, BIODIESEL OPERATIONS MANAGER-C) HLD (hyperlipidemia) HTN (hypertension) Non-ischemic cardiomyopathy Morbid obesity with BMI of 50.0-59.9, adult Moderate aortic valve stenosis Controlled type 2 diabetes mellitus with hyperglycemia ANDRADE (obstructive sleep apnea) Dilated cardiomyopathy Walking difficulty due to ankle and foot Wound healing, delayed Vitamin D deficiency Pulmonary embolism Congestive heart failure Aortic valve disease Lymphedema Venous insufficiency of both lower extremities Sleep apnea Super obesity Hyperlipidemia Surgical History (Reviewed 03/20/24 @ 14:14 by Chidi Goins BIODIESEL OPERATIONS MANAGER, BIODIESEL OPERATIONS MANAGER-C) History of ankle surgery History of foot surgery History of tonsillectomy Family History Mother Cancer Glaucoma Brother Aortic aneurysm Father Myocardial infarction Sister Cancer Sister Cardiomyopathy Brother Pulmonary fibrosis Social History (Reviewed 03/20/24 @ 14:14 by Chidi Goins BIODIESEL OPERATIONS MANAGER, BIODIESEL OPERATIONS MANAGER-C) household members: none Smoking Status: Never smoker alcohol intake: never substance use type: does not use caffeine: Yes Type: carbonated beverages Number of servings: 1 ROS Const Const: Negative for fatigue or weakness Eyes Eyes: Negative for change in vision ENT ENT: Negative for dizziness, Nosebleed/epistaxis or balance problems Cardio Chest Pain: No Palpitations: No Edema: Bilateral (Unchanged) Muscle aches with walking: None Resp Respiratory: Negative for SOB with activity, SOB at rest, SOB orthopnea SOB lying down, Cough or paroxysmal nocturnal dyspnea GI GI: Negative nausea, heartburn or black,tarry stools : Negative for hematuria Musc Musc: Negative for muscle aches/ myalgia, muscle weakne (more content not included)... Normal [facility] Basic Metabolic Profile (BMP )on 03-11-2024 BUN Normal 7-18 [facility] Comment on above: Result Comment: Canc elled via OM: Order cancelled - Patient discharged Performed By: #### L 500.2500 #### [facility] [address] [place], [address] BUN/CRE Normal 10-20 [facility] Comment on above: Result Comment: Canc elled via OM: Order cancelled - Patient discharged Performed By: #### L 500.2500 #### [facility] [address] [place], [address] CA,Total Normal 8.5-10.1 [facility] Comment on above: Result Comment: Canc elled via OM: Order cancelled - Patient discharged Performed By: #### L 500.2500 #### [facility] [address] [place], [address] CL Normal 98-107 [facility] Comment on above: Result Comment: Canc elled via OM: Order cancelled - Patient discharged Performed By: #### L 500.2500 #### [facility] [address] [place], [address] CO2 Normal 21.0-32.0 [facility] Comment on above: Result Comment: Canc elled via OM: Order cancelled - Patient discharged Performed By: #### L 500.2500 #### [facility] [address] [place] [place], [address] CREAT,SERUM Normal 0.70-1.30 [facility] Comment on above: Result Comment: Canc elled via OM: Order cancelled - Patient discharged Performed By: #### L 500.2500 #### [facility] [address] [place], [address] EST GFR Normal >60 [facility] Comment on above: Result Comment: Canc elled via OM: Order cancelled - Patient discharged Performed By: #### L 500.2500 #### [facility] [address] [place], [address] EST GFR - AA Normal >60 [facility] [facility] Comment on above: Result Comment: Canc elled via OM: Order cancelled - Patient discharged Performed By: #### L 500.2500 #### [facility] [address] [place], [address] GAP Normal 5-15 [facility] Comment on above: Result Comment: Canc elled via OM: Order cancelled - Patient discharged Performed By: #### L 500.2500 #### [facility] [address] [place], [address] GLU Normal 74-106 [facility] Comment on above: Result Comment: Canc elled via OM: Order cancelled - Patient discharged Performed By: #### L 500.2500 #### [facility] [address] [place], [address] Potassium Normal 3.5-5.1 [facility] Comment on above: Result Comment: Canc elled via OM: Order cancelled - Patient discharged Performed By: #### L 500.2500 #### [facility] [address] [place], [address] Basic Metabolic Profile (BMP) Normal 136-145 [facility] Comment on above: Result Comment: Canc elled via OM: Order cancelled - Patient discharged Performed By: #### L 500.2500 #### [facility] [address] [place], [address] Basic Metabolic Profile (BMP )on 03-10-2024 BUN Normal 7-18 [facility] Comment on above: Result Comment: Canc elled via OM: Order cancelled - Patient discharged Performed By: #### L 500.2500 #### [facility] [address] [place], [address] BUN/CRE Normal 10-20 [facility] Comment on above: Result Comment: Canc elled via OM: Order cancelled - Patient discharged Performed By: #### L 500.2500 #### [facility] [address] [place], [address] CA,Total Normal 8.5-10.1 [facility] Comment on above: Result Comment: Canc elled via OM: Order cancelled - Patient discharged Performed By: #### L 500.2500 #### [facility] [address] [place], [address] CL Normal 98-107 [facility] Comment on above: Result Comment: Canc elled via OM: Order cancelled - Patient discharged Performed By: #### L 500.2500 #### [facility] [address] [place], [address] CO2 Normal 21.0-32.0 [facility] Comment on above: Result Comment: Canc elled via OM: Order cancelled - Patient discharged Performed By: #### L 500.2500 #### [facility] [address] [place], [address] CREAT,SERUM Normal 0.70-1.30 [facility] Comment on above: Result Comment: Canc elled via OM: Order cancelled - Patient discharged Performed By: #### L 500.2500 #### [facility] [address] [place], [address] EST GFR Normal >60 [facility] Comment on above: Result Comment: Canc elled via OM: Order cancelled - Patient discharged Performed By: #### L 500.2500 #### [facility] [address] [place], [address] EST GFR - AA Normal >60 [facility] Comment on above: Result Comment: Canc elled via OM: Order cancelled - Patient discharged Performed By: #### L 500.2500 #### [facility] [address] [place], [address] GAP Normal 5-15 [facility] Comment on above: Result Comment: Canc elled via OM: Order cancelled - Patient discharged Performed By: #### L 500.2500 #### [facility] [address] [place], [address] GLU Normal 74-106 [facility] Comment on above: Result Comment: Canc elled via OM: Order cancelled - Patient discharged Performed By: #### L 500.2500 #### [facility] [address] [place], [address] Potassium Normal 3.5-5.1 [facility] Comment on above: Result Comment: Canc elled via OM: Order cancelled - Patient discharged Performed By: #### L 500.2500 #### [facility] [address] [place], [address] Basic Metabolic Profile (BMP) Normal 136-145 [facility] Comment on above: Result Comment: Canc elled via OM: Order cancelled - Patient discharged Performed By: #### L 500.2500 #### [facility] [address] [place], [address] Basic Metabolic Profile (BMP )on 03-09-2024 BUN/CRE 54.7 RATIO High 10-20 [facility] Comment on above: Performed By: #### L 500.2500 #### [facility] [address] [place], [address] CA,Total 9.2 mg/dL Normal 8.5-10.1 [facility] Comment on above: Performed By: #### L 500.2500 #### [facility] [address] [place], [address] Chloride [Moles/Vol] 100 mmol/L Normal 98-107 [facility] Comment on above: Performed By: #### L 500.2500 #### [facility] [address] [place], [address] CO2 [Moles/Vol] 38.0 mmol/L High 21.0-32.0 [facility] Comment on above: Performed By: #### L 500.2500 #### [facility] [address] [place], [address] Creatinine [Mass/Vol] 1.50 mg/dL High 0.70-1.30 [facility] Comment on above: Result Comment: The validity of the calculated GFR GFRAA in patients over 70 years has not been determined. Clinical correlation is essential. Performed By: #### L 500.2500 #### [facility] [address] [place], [address] ECRCL 70.21 ml/min Normal [facility] Comment on above: Performed By: #### L 500.2500 #### [facility] [address] [place], [address] EST GFR - AA 59 mL/min Low >60 [facility] Comment on above: Result Comment: Afri can Marshallese GFR Calc Performed By: #### L 500.2500 #### [facility] [address] [place], [address] GAP 2 Low 5-15 [facility] Comment on above: Performed By: #### L 500.2500 #### [facility] [address] [place], [address] GFR/1.73 sq M.predicted among non-blacks MDRD (S/P/Bld) [Vol rate/Area] 49 mL/min/{1.73_m2} Low >60 [facility] Comment on above: Result Comment: Non- GFR Calc Performed By: #### L 500.2500 #### [facility] [address] [place], [address] Glucose [Mass/Vol] 144 mg/dL High 74-106 [facility] Comment on above: Result Comment: Fast ing Glucose result greater than or equal to 126 mg/dL suggests DIABETES MELLITUS per A.D.A. criteria. Performed By: #### L 500.2500 #### [facility] [address] [place], [address] Potassium [Moles/Vol] 4.5 mmol/L Normal 3.5-5.1 [facility] Comment on above: Performed By: #### L 500.2500 #### [facility] [address] [place], [address] Sodium [Moles/Vol] 140 mmol/L Normal 136-145 [facility] Comment on above: Performed By: #### L 500.2500 #### [facility] [address] [place], [address] Urea nitrogen [Mass/Vol] 82 mg/dL High 7-18 [facility] Comment on above: Performed By: #### L 500.2500 #### [facility] [address] [place], [address] Bedside Glucoseon 03-09-2024 FINGERSTICK GLU 196 mg/dL High 74-106 [facility] Comment on above: Result Comment: URI GEMENT OF PATIENT CARE PER NURSING PROTOCOL Performed By: #### L 9000.0800 #### [facility] [address] [place], [address] FINGERSTICK GLU 135 mg/dL High 74-106 [facility] Comment on above: Result Comment: URI GEMENT OF PATIENT CARE PER NURSING PROTOCOL Performed By: #### L 500.2500 #### [facility] [address] [place], [address] Discharge Instructionon 02-18 Discharge Instruction [facility] Medical Records Department [address] [place] [address] Instructions for Home/Discharge Instructions 03/09/24 1228 MR#: [id number] Acct: [id number] Name: SHEREE MUNIZ Rep #: [id number] : 1955 68 From: Elver Bradley DO PCP: Dr. Dawson Olsen MD Status:ADM IN Discharge Instructions Diet Discharge Diet: 6 Cup Fluid Restriction, 2000 mg Sodium Diet and Carb Control Diet Activity Discharge Activity: No Restrictions Follow Up Care Test Results: Test results from this visit will be discussed in further detail at your follow-up appointment, if applicable. Discharge Plan Admission Admit Date/Time: 03/06/24 09:44 Primary Reason for Your Visit: Worsening shortness of breath Attending Provider: Elver Bradley Primary Care Provider: Dawson Olsen Consulting Providers: Sofia Garg Instructions Additional Instructions / Restrictions: Please take the carvedilol, Jardiance, lisinopril and spironolactone for your heart failure as noted below. Continue taking the Bumex twice daily for your water pill. Stop taking the hydralazine that was for your blood pressure. The cardiology office will call to schedule you a follow-up appointment soon. Discharge Orders/Prescriptions Prescriptions: New carvedilol 6.25 mg Tablet 6.25 mg PO BID 30 Days Qty: 60 2RF spironolactone 25 mg Tablet 25 mg PO DAILY 30 Days Qty: 30 2RF lisinopril 5 mg Tablet 5 mg PO BID 30 Days Qty: 60 2RF Jardiance 10 mg Tablet 10 mg PO DAILY 30 Days Qty: 30 2RF Continued glipizide 5 MG tablet 5 mg PO DAILY aspirin 81 mg capsule 81 mg PO DAILY insulin aspart U-100 [Novolog U-100 Insulin aspart] 5 unit subcut DAILY Patient Comments: with breakfast Humulin 70/30 U-100 Insulin 100 unit/mL (70-30) suspension 5 unit subcut BID Rx Instructions: 90-150 =5 units, 150-200=10 units...increased 5 units each level to max of 20 units bumetanide 2 mg tablet 2 mg PO BID 30 Days Qty: 60 2RF Discontinued carvedilol 25 MG tablet 25 mg PO BID Patient Comments: blood pressure hydralazine 50 mg tablet 50 mg PO TID Referrals / Follow Up: Sofia Garg MD [Med Staff - Active Staff] - Dawson Olsen DO [Primary Care Provider] - Disposition Disposition (needs filled in before D/C Order can be placed): Home Health Service 03/09/24 1232 Elver Bradley DO CC: Dr. Sofia Garg MD; Dr. Dawson Olsen MD Signed Normal [facility] Basic Metabolic Profile (BMP )on 03-08-2024 BUN/CRE 46.7 RATIO High - [facility] Comment on above: Performed By: #### L 9000.0800 #### [facility] [address] [place], [address] CA,Total 8.8 mg/dL Normal 8.5-10.1 [facility] Comment on above: Performed By: #### L 9000.0800 #### [facility] [address] [place], [address] Chloride [Moles/Vol] 100 mmol/L Normal 98-107 [facility] Comment on above: Performed By: #### L 9000.0800 #### [facility] [address] [place], [address] CO2 [Moles/Vol] 33.0 mmol/L High 21.0-32.0 [facility] Comment on above: Performed By: #### L 9000.0800 #### [facility] [address] [place], [address] Creatinine [Mass/Vol] 1.69 mg/dL High 0.70-1.30 [facility] Comment on above: Result Comment: The validity of the calculated GFR GFRAA in patients over 70 years has not been determined. Clinical correlation is essential. Performed By: #### L 9000.0800 #### [facility] [address] [place], [address] ECRCL 62.71 ml/min Normal [facility] Comment on above: Performed By: #### L 9000.0800 #### [facility] [address] [place], [address] EST GFR - AA 52 mL/min Low >60 [facility] Comment on above: Result Comment: Afri can Marshallese GFR Calc Performed By: #### L 9000.0800 #### [facility] [address] [place], [address] GAP 4 Low 5-15 [facility] Comment on above: Performed By: #### L 9000.0800 #### [facility] [address] [place], [address] GFR/1.73 sq M.predicted among non-blacks MDRD (S/P/Bld) [Vol rate/Area] 43 mL/min/{1.73_m2} Low >60 [facility] Comment on above: Result Comment: Non- GFR Calc Performed By: #### L 0.0800 #### [facility] [address] [place], [address] Glucose [Mass/Vol] 157 mg/dL High 74-106 [facility] Comment on above: Result Comment: Fast ing Glucose result greater than or equal to 126 mg/dL suggests DIABETES MELLITUS per A.D.A. criteria. Performed By: #### L 9000.0800 #### [facility] [address] [place], [address] Potassium [Moles/Vol] 4.9 mmol/L Normal 3.5-5.1 [facility] Comment on above: Result Comment: Mode rate Hemolysis, Result may be falsely increased. Performed By: #### L 9000.0800 #### [facility] [address] [place], [address] Sodium [Moles/Vol] 137 mmol/L Normal 136-145 [facility] Comment on above: Performed By: #### L 9000.0800 #### [facility] [address] [place], [address] Urea nitrogen [Mass/Vol] 79 mg/dL High 7-18 [facility] Comment on above: Performed By: #### L 9000.0800 #### [facility] [address] [place], [address] Bedside Glucoseon 03-08-2024 FINGERSTICK GLU 182 mg/dL High -106 [facility] Comment on above: Result Comment: URI GEMENT OF PATIENT CARE PER NURSING PROTOCOL Performed By: #### L 9000.0800 #### [facility] [address] [place], [address] FINGERSTICK GLU 114 mg/dL High [facility]106 [facility] Comment on above: Result Comment: URI GEMENT OF PATIENT CARE PER NURSING PROTOCOL Performed By: #### L 9000.0800 #### [facility] [address] [place], [address] FINGERSTICK GLU 183 mg/dL High [address] [place] [address] Comment on above: Result Comment: URI GEMENT OF PATIENT CARE PER NURSING PROTOCOL Performed By: #### L 9000.0800 #### [facility] [address] [place] [place], [address] FINGERSTICK GLU 166 mg/dL High [facility]106 [facility] Comment on above: Result Comment: URI GEMENT OF PATIENT CARE PER NURSING PROTOCOL Performed By: #### L 9000.0800 #### [facility] [address] [place], [address] FINGERSTICK GLU 163 mg/dL High [address] [place] [address] Comment on above: Result Comment: URI GEMENT OF PATIENT CARE PER NURSING PROTOCOL Performed By: #### L 9000.0800 #### [facility] [address] [place], [address] Magnesiumon 03-08-2024 Magnesium [Mass/Vol] 2.9 mg/dL High 1.6-2.6 [facility] Comment on above: Result Comment: Mode rate Hemolysis, Result may be falsely increased. Performed By: #### L 9000.0800 #### [facility] [address] [place], [address] Basic Metabolic Profile (BMP )on 03-07-2024 BUN/CRE 50.0 RATIO High 10-20 [facility] Comment on above: Performed By: #### L 503.6620, L500.4050, L503.6005, L501.5425, L100.0100 #### [facility] [address] [place], [address] CA,Total 9.0 mg/dL Normal 8.5-10.1 [facility] Comment on above: Performed By: #### L 503.6620, L500.4050, L503.6005, L501.5425, L100.0100 #### [facility] [address] [place], [address] Chloride [Moles/Vol] 99 mmol/L Normal 98-107 [facility] Comment on above: Performed By: #### L 503.6620, L500.4050, L503.6005, L501.5425, L100.0100 #### [facility] [address] [place], [address] CO2 [Moles/Vol] 38.0 mmol/L High 21.0-32.0 [facility] Comment on above: Performed By: #### L 503.6620, L500.4050, L503.6005, L501.5425, L100.0100 #### [facility] [address] [place], [address] Creatinine [Mass/Vol] 1.62 mg/dL High 0.70-1.30 [facility] Comment on above: Result Comment: The validity of the calculated GFR GFRAA in patients over 70 years has not been determined. Clinical correlation is essential. Performed By: #### L 503.6620, L500.4050, L503.6005, L501.5425, L100.0100 #### [facility] [address] [place], [address] ECRCL 65.25 ml/min Normal [facility] Comment on above: Performed By: #### L 503.6620, L500.4050, L503.6005, L501.5425, L100.0100 #### [facility] [address] [place], [address] EST GFR - AA 54 mL/min Low >60 [facility] Comment on above: Result Comment: Afri can Marshallese GFR Calc Performed By: #### L 503.6620, L500.4050, L503.6005, L501.5425, L100.0100 #### [facility] [address] [place], [address] GAP 2 Low 5-15 [facility] Comment on above: Performed By: #### L 503.6620, L500.4050, L503.6005, L501.5425, L100.0100 #### [facility] [address] [place], [address] GFR/1.73 sq M.predicted among non-blacks MDRD (S/P/Bld) [Vol rate/Area] 45 mL/min/{1.73_m2} Low >60 [facility] Comment on above: Result Comment: Non- GFR Calc Performed By: #### L 503.6620, L500.4050, L503.6005, L501.5425, L100.0100 #### [facility] [address] [place], [address] Glucose [Mass/Vol] 118 mg/dL High 74-106 [facility] Comment on above: Result Comment: Fast ing Glucose result from 100 to 125 mg/dL suggests IMPAIRED HOMEOSTASIS per A.D.A. criteria. Performed By: #### L 503.6620, L500.4050, L503.6005, L501.5425, L100.0100 #### [facility] [address] [place], [address] Potassium [Moles/Vol] 4.5 mmol/L Normal 3.5-5.1 [facility] Comment on above: Performed By: #### L 503.6620, L500.4050, L503.6005, L501.5425, L100.0100 #### [facility] [address] [place], [address] Sodium [Moles/Vol] 139 mmol/L Normal 136-145 [facility] Comment on above: Performed By: #### L 503.6620, L500.4050, L503.6005, L501.5425, L100.0100 #### [facility] [address] [place], [address] Urea nitrogen [Mass/Vol] 81 mg/dL High 7-18 [facility] Comment on above: Performed By: #### L 503.6620, L500.4050, L503.6005, L501.5425, L100.0100 #### [facility] [address] [place], [address] Bedside Glucoseon 03-07-2024 FINGERSTICK GLU 168 mg/dL High 74-106 [facility] Comment on above: Result Comment: URI GEMENT OF PATIENT CARE PER NURSING PROTOCOL Performed By: #### L 9000.0800 #### [facility] [address] [place], [address] FINGERSTICK GLU 187 mg/dL High 74-106 [facility] Comment on above: Result Comment: UIR GEMENT OF PATIENT CARE PER NURSING PROTOCOL Performed By: #### L 9000.0800 #### [facility] [address] [place], [address] FINGERSTICK GLU 107 mg/dL High 74-106 [facility] Comment on above: Result Comment: URI GEMENT OF PATIENT CARE PER NURSING PROTOCOL Performed By: #### L 9000.0800 #### [facility] [address] [place], [address] FINGERSTICK GLU 120 mg/dL High 74-106 [facility] Comment on above: Result Comment: URI PIRES OF PATIENT CARE PER NURSING PROTOCOL Performed By: #### L 9000.0800 #### [facility] [address] [place], [address] CBC-Complete Blood Cnt No Di ffon 03-07-2024 Erythrocyte distribution width (RBC) [Ratio] 15.3 % High 11.6-14.6 [facility] Comment on above: Performed By: #### L 9000.0800 #### [facility] [address] [place], [address] Hematocrit (Bld) [Volume fraction] 46.4 % Normal 40-54 [facility] Comment on above: Performed By: #### L 9000.0800 #### [facility] [address] [place], [address] Hemoglobin (Bld) [Mass/Vol] 13.7 g/dL Normal 13.0-16.5 [facility] Comment on above: Performed By: #### L 9000.0800 #### [facility] [address] [place], [address] MCH (RBC) [Entitic mass] 29.0 pg Normal 27.0-32.0 [facility] Comment on above: Performed By: #### L 9000.0800 #### [facility] [address] [place], [address] MCHC (RBC) [Mass/Vol] 29.5 g/dL Low 32-36 [facility] Comment on above: Performed By: #### L 9000.0800 #### [facility] [address] [place], [address] MCV (RBC) [Entitic vol] 98.1 fL High 80-94 [facility] Comment on above: Performed By: #### L 9000.0800 #### [facility] [address] [place], [address] Platelet mean volume (Bld) [Entitic vol] 12.2 fL High 6.2-12.0 [facility] Comment on above: Performed By: #### L 9000.0800 #### [facility] [address] [place], [address] Platelets (Bld) [#/Vol] 144 10*3/uL Low 150-450 [facility] Comment on above: Performed By: #### L 9000.0800 #### [facility] [address] [place], [address] RBC (Bld) [#/Vol] 4.73 10*6/uL Normal 4.6-6.2 [facility] Comment on above: Performed By: #### L 9000.0800 #### [facility] [address] [place], [address] RDW SD 54.7 fl High 35.1-43.9 [facility] Comment on above: Performed By: #### L 9000.0800 #### [facility] [address] [place], [address] WBC (Bld) [#/Vol] 4.3 10*3/uL Low 4.4-11.0 [facility] Comment on above: Performed By: #### L 9000.0800 #### [facility] [address] [place], [address] Consultation - Cardiologyon 03-07-2024 Consultation - Cardiology [facility] Medical Records Department [address] [place] [address] Consultation - Cardiology 03/07/24 1047 MR#: [id number] Acct: [id number] Name: SHEREE MUNIZ Rep #: [id number] : 1955 68 From: Sofia Garg MD PCP: Dr. Dawson Olsen MD Status:ADM IN Location: [place] [address] Assessment Plan Assessment/Plan (1) Acute on chronic systolic congestive heart failure, NYHA class 3: PLAN: Continue diuresis. Switch to furosemide 80 mg IV twice daily. Already started on spironolactone and empagliflozin. It is noted that the patient was on carvedilol 25 mg twice daily at home. Switch back to carvedilol. Add ACEI. (2) Dilated cardiomyopathy: PLAN: See #1 above. Will need records from [facility]. (3) Moderate aortic valve stenosis: PLAN: Monitor. Periodic echo and clinical surveillance. (4) Morbid obesity with BMI of 50.0-59.9, adult: PLAN: Lose weight. Patient is diabetic. I believe he will benefit from GLP-1 agonists. Follow as per internal medicine. (5) ANDRADE (obstructive sleep apnea): PLAN: As per sleep medicine. Lose weight. HPI Consult Data Date of Consult: 03/07/24 HPI Narrative Reason for Consultation: Congestive heart failure HPI Narrative: 68-year-old gentleman who describes a previous history of congestive heart failure. Per him, he was diagnosed at [facility] with congestive heart failure. According to him, heart catheterization was done for him there as well. He is not sure about the time.. Presented to the hospital with progressive shortness of breath. Positive orthopnea. Positive ankle edema. Admitted with a diagnosis of congestive heart failure. Echocardiogram showed ejection fraction of 35% with severely dilated left ventricular cavity. Moderate aortic valve stenosis was also noted. [facility] Medical History Walking difficulty due to ankle and foot Wound healing, delayed Vitamin D deficiency Pulmonary embolism Congestive heart failure Aortic valve disease Lymphedema Venous insufficiency of both lower extremities Sleep apnea Super obesity Hyperlipidemia Home Medications ???Medication ???Instructions ???Recorded ???Last Taken ???Type carvedilol 25 mg tablet 25 mg PO BID blood pressure 01/18/17 10/19/18 History glipizide 5 mg tablet 5 mg PO DAILY diabetes 07/18/18 Unknown History aspirin 81 mg capsule 81 mg PO DAILY preventative 03/06/24 Unknown History bumetanide 2 mg tablet 2 mg PO BID water pill 03/06/24 Unknown History hydralazine 50 mg tablet 50 mg PO TID blood pressure 03/06/24 Unknown History insulin aspart U-100 5 unit subcut DAILY 03/06/24 Unknown History insulin human U-100 NPH-regulr 5 unit subcut BID diabetes 03/06/24 Unknown History 70-30 mix 100 unit/mL subcutaneous susp (Humulin 70/30 U-100 Insulin) Allergy/AdvReac Type Severity Reaction Status Date / Time No Known Allergies Allergy Verified 01/04/19 11:35 Social History (Updated 03/06/24 @ 10:48 by Arlene Holguin) household members: none Smoking Status: Never smoker Physical Exam Narrative Morbidly obese. Neck pain examination is difficult because of body habitus. Heart sounds 1 and 2 are noted. Chest examination reveals decreased air entry at bases. 2+ ankle edema noted. Risk Stratification Risk Stratification Applicable: No Objective Data Vital Signs: Vital Signs Temp Pulse Resp BP Pulse Ox O2 Del Method O2 Flow Rate 95.9 F L 70 20 H 141/76 H 96 Nasal Cannula 9 03/07/24 08:12 03/07/24 08:12 03/07/24 08:12 03/07/24 08:12 03/07/24 08:12 03/07/24 08:12 03/07/24 08:12 FiO2 30 03/07/24 07:54 Oxygen Flow Rate (L/min) 9 Oxygen Delivery Method Nasal Cannula Weight: 357 lb 12.8 oz Body Mass Index (BMI) 50.6 Intake Output: Intake and Output for Last 24 Hours 03/05/24 03/06/24 03/07/24 23:59 23:59 23:59 Intake Total 860 / 860 0 / 0 Output Total 350 / 350 300 / 300 Balance 510 / 510 -300 / -300 Lab / Micro Data 03/07/24 06:41 03/07/24 06:41 Labs: Laboratory Results - last 24 hr 03/06/24 11:24: Troponin I High Sens 73 03/06/24 12:38: POC Glucose 124 H 03/06/24 17:14: POC Glucose 133 H 03/06/24 21:43: POC Glucose 120 H 03/07/24 05:57: POC Glucose 107 H 03/07/24 06:41: WBC 4.3 L, RBC 4.73, Hgb 13.7, Hct 46.4, MCV 98.1 H, MCH 29.0, MCHC 29.5 L, RDW Std Deviation 54.7 H, RDW Coeff of Paddy 15.3 H, Plt Count 144 L, MPV 12.2 H, Sodium 139, Potassium 4.5, Chloride 99, Carbon Dioxide 38.0 H, Anion Gap 2 L, BUN 81 H, Creatinine 1.62 H, Estim Creat Clear Calc 65.25, Est GFR (MDRD) Af Amer 54 L, Est GFR (MDRD) Non-Af 45 L, BUN/Creatinine Ratio 50.0 H, G lucose 118 H, Hemoglobin A1c 6.7 H, Calcium 9.0 ABG Data ABG results: ABG 03/06/24 09:04 Specimen Type Cancelled Sample Site Cancelled (more content not included)... Normal [facility] Hemoglobin A1con 03-07-2024 HbA1c (Bld) [Mass fraction] 6.7 % High 3.8-5.6 [facility] Comment on above: Result Comment: Norm al < 5.7 % Prediabetic 5.7 - 6.4 % Diabetic >or= 6.5 % Please note range changes. Performed By: #### L 501.9948 #### [facility] [address] [place], [address] 12 Lead EKGon 03-06-2024 12 Lead EKG [facility] Cardiovascular Services [address] [place] [address] 12 Lead EKG 03/06/24 0836 MR#: [id number] Acct: [id number] Name: SHEREE MUNIZ Rep #: [id number] : 1955 68 From: Govind Hagan MD Attending Dr: Dr. Elver Bradley, Status : DIS IN Ordering Dr: Tone Olivier MD Date: 03/06/24 Location: [facility] Sex: M C Admitted: 03/06/24 Test Reason : SOB Blood Pressure : / mmHG Vent. Rate : 087 BPM Atrial Rate : 087 BPM P-R Int : 194 ms QRS Dur : 162 ms QT Int : 410 ms P-R-T Axes : 029 -50 106 degrees QTc Int : 493 ms Sinus rhythm with frequent Premature ventricular complexes Left axis deviation Left bundle branch block Abnormal ECG Confirmed by Govind Hagan ([id number]), telegraph editor ISSA RECINOS ([id number]) on 03/11/2024 10:19:34 AM Referred By: GISELLE/SHAILA Confirmed By:Govind Hagan 03/11/24 1019 Date Govind Hagan MD CC: Dr. Elver Bradley DO; Dr. Dawson Olsen MD; Dr. Tone Olivier MD Signed Normal [facility] BNP,B-Type NATRIURETIC PEPTI Tye 03-06-2024 Natriuretic peptide B (Bld) [Mass/Vol] 1794.5 pg/mL High 0-100 [facility] Comment on above: Performed By: #### L 503.6620, L500.4050, L503.6005, L501.5425, L100.0100 #### [facility] [address] [place], [address] Bedside Glucoseon 03-06-2024 FINGERSTICK GLU 133 mg/dL High 74-106 [facility] Comment on above: Result Comment: URI GEMENT OF PATIENT CARE PER NURSING PROTOCOL Performed By: #### L 501.080 #### [facility] [address] [place], [address] FINGERSTICK GLU 124 mg/dL High 74-106 [facility] Comment on above: Result Comment: URI GEMENT OF PATIENT CARE PER NURSING PROTOCOL Performed By: #### L 9000.0800 #### [facility] [address] [place], [address] Blood Gases by CPSon 024 KENDALL TEST Positive Normal [facility] Comment on above: Performed By: #### L 9000.0800 #### [facility] [address] [place], [address] Base excess Calc (Bld) [Moles/Vol] 9 mmol/L High -2 to +2 [facility] Comment on above: Performed By: #### L 9000.0800 #### [facility] [address] [place], [address] Blood Gas Type ART Normal [facility] Comment on above: Performed By: #### L 0.0800 #### [facility] [address] [place], [address] CO2 [Moles/Vol] 37 mmol/L Normal [facility] Comment on above: Performed By: #### L 9000.0800 #### [facility] [address] [place], [address] FI02 50.0 Normal [facility] Comment on above: Performed By: #### L 0.0800 #### [facility] [address] [place], [address] HCO3 (Bld) [Moles/Vol] 34.9 mmol/L High 22-26 [facility] Comment on above: Performed By: #### L 9000.0800 #### [facility] [address] [place], [address] Mode BiLevel Normal [facility] Comment on above: Performed By: #### L 0.0800 #### [facility] [address] [place], [address] O2 Delivery Dev BiPAP Normal [facility] Comment on above: Performed By: #### L 0.0800 #### [facility] [address] [place], [address] pCO2 68.4 mmHg Invalid Interpretation Code 35-45 [facility] Comment on above: Performed By: #### L 0.0800 #### [facility] [address] [place], [address] PEEP 5 Normal [facility] Comment on above: Performed By: #### L 9000.0800 #### [facility] [address] [place], [address] pH (Bld) 7.32 [pH] Low 7.35-7.45 [facility] Comment on above: Performed By: #### L 9000.0800 #### [facility] [address] [place], [address] PO2 117 mmHG High 75-100 [facility] Comment on above: Performed By: #### L 9000.0800 #### [facility] [address] [place], [address] Read Back By Yes Normal [facility] Comment on above: Performed By: #### L 9000.0800 #### [facility] [address] [place], [address] Results To olivier Normal [facility] Comment on above: Performed By: #### L 9000.0800 #### [facility] [address] [place], [address] RR 12 Normal [facility] Comment on above: Performed By: #### L 9000.0800 #### [facility] [address] [place], [address] SITE L Radial Normal [facility] Comment on above: Performed By: #### L 9000.0800 #### [facility] [address] [place], [address] SO2 98 Normal 95-99 [facility] Comment on above: Performed By: #### L 9000.0800 #### [facility] [address] [place], [address] Time Given 10:03:22 Normal [facility] Comment on above: Performed By: #### L 9000.0800 #### [facility] [address] [place], [address] Base excess Calc (Bld) [Moles/Vol] 7 mmol/L High -2 to +2 [facility] Comment on above: Result Comment: crit ical value rerun only Performed By: #### L 9000.0800 #### [facility] [address] [place], [address] Blood Gas Type ART Normal [facility] Comment on above: Result Comment: crit ical value rerun only Performed By: #### L 9000.0800 #### [facility] [address] [place], [address] CO2 [Moles/Vol] 35 mmol/L Normal [facility] Comment on above: Result Comment: crit ical value rerun only Performed By: #### L 9000.0800 #### [facility] [address] [place], [address] HCO3 (Bld) [Moles/Vol] 32.8 mmol/L High 22-26 [facility] Comment on above: Result Comment: crit ical value rerun only Performed By: #### L 9000.0800 #### [facility] [address] [place], [address] Mode Not entered Normal [facility] Comment on above: Result Comment: crit ical value rerun only Performed By: #### L 9000.0800 #### [facility] [address] [place], [address] O2 Delivery Dev Not entered Normal [facility] Comment on above: Result Comment: crit ical value rerun only Performed By: #### L 9000.0800 #### [facility] [address] [place], [address] pCO2 65.2 mmHg High 35-45 [facility] Comment on above: Result Comment: crit ical value rerun only Performed By: #### L 9000.0800 #### [facility] [address] [place], [address] pH (Bld) 7.31 [pH] Low 7.35-7.45 [facility] Comment on above: Result Comment: crit ical value rerun only Performed By: #### L 9000.0800 #### [facility] [address] [place], [address] PO2 132 mmHG High 75-100 [facility] Comment on above: Result Comment: crit ical value rerun only Performed By: #### L 9000.0800 #### [facility] [address] [place], [address] SITE Not entered Normal [facility] Comment on above: Result Comment: crit ical value rerun only Performed By: #### L 9000.0800 #### [facility] [address] [place], [address] SO2 99 Normal 95-99 [facility] Comment on above: Result Comment: crit ical value rerun only Performed By: #### L 9000.0800 #### [facility] [address] [place], [address] KENDALL TEST Positive Normal [facility] Comment on above: Performed By: #### L 9000.0800 #### [facility] [address] [place], [address] Base excess Calc (Bld) [Moles/Vol] 9 mmol/L High -2 to +2 [facility] Comment on above: Performed By: #### L 9000.0800 #### [facility] [address] [place], [address] Blood Gas Type ART Normal [facility] Comment on above: Performed By: #### L 9000.0800 #### [facility] [address] [place], [address] CO2 [Moles/Vol] 37 mmol/L Normal [facility] Comment on above: Performed By: #### L 0.0800 #### [facility] [address] [place], [address] FI02 10.0 Normal [facility] Comment on above: Performed By: #### L 0.0800 #### [facility] [address] [place], [address] HCO3 (Bld) [Moles/Vol] 34.9 mmol/L High 22-26 [facility] Comment on above: Performed By: #### L 0.0800 #### [facility] [address] [place], [address] Mode Not entered Normal [facility] Comment on above: Performed By: #### L 0.0800 #### [facility] [address] [place], [address] O2 Delivery Dev HFNC Normal [facility] Comment on above: Performed By: #### L 0.0800 #### [facility] [address] [place], [address] pCO2 70.7 mmHg Invalid Interpretation Code 35-45 [facility] Comment on above: Performed By: #### L 0.0800 #### [facility] [address] [place], [address] pH (Bld) 7.30 [pH] Low 7.35-7.45 [facility] Comment on above: Performed By: #### L 9000.0800 #### [facility] [address] [place], [address] PO2 121 mmHG High 75-100 [facility] Comment on above: Performed By: #### L 0.0800 #### [facility] [address] [place], [address] Read Back By Yes Normal [facility] Comment on above: Performed By: #### L 0.0800 #### [facility] [address] [place], [address] Results To olivier Normal [facility] Comment on above: Performed By: #### L 0.0800 #### [facility] [address] [place], [address] SITE R Radial Normal [facility] Comment on above: Performed By: #### L 0.0800 #### [facility] [address] [place], [address] SO2 98 Normal 95-99 [facility] Comment on above: Performed By: #### L 8999.0800 #### [facility] [address] [place], [address] Time Given 08:59:31 Normal [facility] Comment on above: Performed By: #### L 0.0800 #### [facility] [address] [place], [address] CBC W/Diff, Automatedon 09- Absolute Lymph 0.59 X10 3/uL Low 0.83-4.51 [facility] Comment on above: Performed By: #### L 503.6620, L500.4050, L503.6005, L501.5425, L100.0100 #### [facility] [address] [place], [address] Absolute Neut 5.0 X10 3/uL Normal 2.0-7.7 [facility] Comment on above: Performed By: #### L 503.6620, L500.4050, L503.6005, L501.5425, L100.0100 #### [facility] [address] [place], [address] Basophils/100 WBC (Bld) 0.5 % Normal 0-1 [facility] Comment on above: Performed By: #### L 503.6620, L500.4050, L503.6005, L501.5425, L100.0100 #### [facility] [address] [place], [address] Eosinophils/100 WBC (Bld) 0.2 % Normal 0-5 [facility] Comment on above: Performed By: #### L 503.6620, L500.4050, L503.6005, L501.5425, L100.0100 #### [facility] [address] [place], [address] Erythrocyte distribution width (RBC) [Ratio] 15.4 % High 11.6-14.6 [facility] Comment on above: Performed By: #### L 503.6620, L500.4050, L503.6005, L501.5425, L100.0100 #### [facility] [address] [place], [address] Hematocrit (Bld) [Volume fraction] 49.1 % Normal 40-54 [facility] Comment on above: Performed By: #### L 503.6620, L500.4050, L503.6005, L501.5425, L100.0100 #### [facility] [address] [place], [address] Hemoglobin (Bld) [Mass/Vol] 14.5 g/dL Normal 13.0-16.5 [facility] Comment on above: Performed By: #### L 503.6620, L500.4050, L503.6005, L501.5425, L100.0100 #### [facility] [address] [place], [address] IG% 0.300 Normal 0.0-0.9 [facility] Comment on above: Result Comment: IG% - Immature Granulocytes (promyelocytes, myelocytes and metamyelocytes) > 1% indicates that a LEFT SHIFT is Present. Performed By: #### L 503.6620, L500.4050, L503.6005, L501.5425, L100.0100 #### [facility] [address] [place], [address] Lymphocytes/100 WBC (Bld) 9.5 % Low 19-41 [facility] Comment on above: Performed By: #### L 503.6620, L500.4050, L503.6005, L501.5425, L100.0100 #### [facility] [address] [place], [address] MCH (RBC) [Entitic mass] 28.6 pg Normal 27.0-32.0 [facility] Comment on above: Performed By: #### L 503.6620, L500.4050, L503.6005, L501.5425, L100.0100 #### [facility] [address] [place], [address] MCHC (RBC) [Mass/Vol] 29.5 g/dL Low 32-36 [facility] Comment on above: Performed By: #### L 503.6620, L500.4050, L503.6005, L501.5425, L100.0100 #### [facility] [address] [place], [address] MCV (RBC) [Entitic vol] 96.8 fL High 80-94 [facility] Comment on above: Performed By: #### L 503.6620, L500.4050, L503.6005, L501.5425, L100.0100 #### [facility] [address] [place], [address] Monocytes/100 WBC (Bld) 8.7 % Normal 0-10 [facility] Comment on above: Performed By: #### L 503.6620, L500.4050, L503.6005, L501.5425, L100.0100 #### [facility] [address] [place], [address] Neutrophils/100 WBC (Bld) 80.8 % High 47-70 [facility] Comment on above: Performed By: #### L 503.6620, L500.4050, L503.6005, L501.5425, L100.0100 #### [facility] [address] [place], [address] Nucleated RBC (Bld) [#/Vol] 0 10*3/uL Normal 0-5 [facility] Comment on above: Performed By: #### L 503.6620, L500.4050, L503.6005, L501.5425, L100.0100 #### [facility] [address] [place], [address] Platelet mean volume (Bld) [Entitic vol] 11.3 fL Normal 6.2-12.0 [facility] Comment on above: Performed By: #### L 503.6620, L500.4050, L503.6005, L501.5425, L100.0100 #### [facility] [address] [place], [address] Platelets (Bld) [#/Vol] 148 10*3/uL Low 150-450 [facility] Comment on above: Performed By: #### L 503.6620, L500.4050, L503.6005, L501.5425, L100.0100 #### [facility] [address] [place], [address] RBC (Bld) [#/Vol] 5.07 10*6/uL Normal 4.6-6.2 [facility] Comment on above: Performed By: #### L 503.6620, L500.4050, L503.6005, L501.5425, L100.0100 #### [facility] [address] [place], [address] RDW SD 54.7 fl High 35.1-43.9 [facility] Comment on above: Performed By: #### L 503.6620, L500.4050, L503.6005, L501.5425, L100.0100 #### [facility] [address] [place], [address] WBC (Bld) [#/Vol] 6.2 10*3/uL Normal 4.4-11.0 [facility] Comment on above: Performed By: #### L 503.6620, L500.4050, L503.6005, L501.5425, L100.0100 #### [facility] [address] [place], [address] Chest 1 View (Portable)on Chest 1 View (Portable) [facility] Imaging Services [address] [place] [address] Chest 1 View (Portable) MR#: [id number] Acct: [id number] Name: SHEREE MUNIZ Rep #: [id number] : 1955 M 68 From: Markell hightower MD PCP: Dr. Dawson Olsen MD Status: REG ER Study: Chest 1 View (Portable) Date of Exam: 03/06/24 Exam# [id number] Ordering Dr: Tone Olivier MD [id number] STUDY: X-RAY CHEST REASON FOR EXAM: Male, 68 years old. Respiratory failure, bilateral rales TECHNIQUE: Single AP portable view of the chest. COMPARISON: Comparison is made with prior study April 01, 2017. FINDINGS: EKG electrodes are seen. Gastric congestion and CHF more prominent in the right hemithorax. There is no demonstrated pleural abnormality. There is mild cardiac enlargement. Normal mediastinum and pilar. Normal visualized pulmonary arteries. Normal visualized aortic arch and descending thoracic aorta. There are diffuse degenerative changes of the visualized thoracic spine. Normal visualized ribs, clavicles, and shoulders. There is no demonstrated abnormality of the visualized soft tissue structures of the upper abdomen. RAD/Chest 1 View (Portable) IMPRESSION: Vascular congestion and CHF. Worsened the right hemithorax. Electronically Signed: Markell Osman MD at 9:10 EDT Reading Location ID and State: [facility] / MD , Service support , CC: Dr. Dawson Olsen MD; Dr. Tone Olivier MD Guide: Signed Normal [facility] Comprehensive Metabolic Prof ilon 03-06-2024 Albumin [Mass/Vol] 3.0 g/dL Low 3.2-5.0 [facility] Comment on above: Order Comment: 1 Y Performed By: #### L 503.6620, L500.4050, L503.6005, L501.5425, L100.0100 #### [facility] [address] [place], [address] Albumin/Globulin [Mass ratio] 0.6 {ratio} Low 0.9-2.4 [facility] Comment on above: Order Comment: 1 Y Performed By: #### L 503.6620, L500.4050, L503.6005, L501.5425, L100.0100 #### [facility] [address] [place], [address] ALK P 80 U/L Normal 45-117 [facility] Comment on above: Order Comment: 1 Y Performed By: #### L 503.6620, L500.4050, L503.6005, L501.5425, L100.0100 #### [facility] [address] [place], [address] ALT [Catalytic activity/Vol] 12 U/L Low 16-61 [facility] Comment on above: Order Comment: 1 Y Performed By: #### L 503.6620, L500.4050, L503.6005, L501.5425, L100.0100 #### [facility] [address] [place], [address] AST [Catalytic activity/Vol] 16 U/L Normal 15-37 [facility] Comment on above: Order Comment: 1 Y Performed By: #### L 503.6620, L500.4050, L503.6005, L501.5425, L100.0100 #### [facility] [address] [place], [address] Bilirubin [Mass/Vol] 1.20 mg/dL High 0.20-1.00 [facility] Comment on above: Order Comment: 1 Y Result Comment: For patients on eltrombopag therapy, use of Dimension [place] TBIL is not recommended. Performed By: #### L 503.6620, L500.4050, L503.6005, L501.5425, L100.0100 #### [facility] [address] [place], [address] BUN/CRE 43.7 RATIO High 10-20 [facility] Comment on above: Order Comment: 1 Y Performed By: #### L 503.6620, L500.4050, L503.6005, L501.5425, L100.0100 #### [facility] [address] [place], [address] CA,Total 8.6 mg/dL Normal 8.5-10.1 [facility] Comment on above: Order Comment: 1 Y Performed By: #### L 503.6620, L500.4050, L503.6005, L501.5425, L100.0100 #### [facility] [address] [place], [address] Chloride [Moles/Vol] 97 mmol/L Low 98-107 [facility] Comment on above: Order Comment: 1 Y Performed By: #### L 503.6620, L500.4050, L503.6005, L501.5425, L100.0100 #### [facility] [address] [place], [address] CO2 [Moles/Vol] 33.0 mmol/L High 21.0-32.0 [facility] Comment on above: Order Comment: 1 Y Performed By: #### L 503.6620, L500.4050, L503.6005, L501.5425, L100.0100 #### [facility] [address] [place], [address] Creatinine [Mass/Vol] 1.74 mg/dL High 0.70-1.30 [facility] Comment on above: Order Comment: 1 Y Result Comment: The validity of the calculated GFR GFRAA in patients over 70 years has not been determined. Clinical correlation is essential. Performed By: #### L 503.6620, L500.4050, L503.6005, L501.5425, L100.0100 #### [facility] [address] [place], [address] ECRCL 59.07 ml/min Normal [facility] Comment on above: Order Comment: 1 Y Performed By: #### L 503.6620, L500.4050, L503.6005, L501.5425, L100.0100 #### [facility] [address] [place], [address] EST GFR - AA 50 mL/min Low >60 [facility] Comment on above: Order Comment: 1 Y Result Comment: Afri can [place] GFR Calc Performed By: #### L 503.6620, L500.4050, L503.6005, L501.5425, L100.0100 #### [facility] [address] [place], [address] GAP 8 Normal 5-15 [facility] Comment on above: Order Comment: 1 Y Performed By: #### L 503.6620, L500.4050, L503.6005, L501.5425, L100.0100 #### [facility] [address] [place], [address] GFR/1.73 sq M.predicted among non-blacks MDRD (S/P/Bld) [Vol rate/Area] 41 mL/min/{1.73_m2} Low >60 [facility] Comment on above: Order Comment: 1 Y Result Comment: Non- GFR Calc Performed By: #### L 503.6620, L500.4050, L503.6005, L501.5425, L100.0100 #### [facility] [address] [place], [address] Globulin (S) [Mass/Vol] 5.1 g/dL High 2.2-4.2 [facility] Comment on above: Order Comment: 1 Y Performed By: #### L 503.6620, L500.4050, L503.6005, L501.5425, L100.0100 #### [facility] [address] [place], [address] Glucose [Mass/Vol] 197 mg/dL High 74-106 [facility] Comment on above: Order Comment: 1 Y Result Comment: Fast ing Glucose result greater than or equal to 126 mg/dL suggests DIABETES MELLITUS per A.D.A. criteria. Performed By: #### L 503.6620, L500.4050, L503.6005, L501.5425, L100.0100 #### [facility] [address] [place], [address] Potassium [Moles/Vol] 4.4 mmol/L Normal 3.5-5.1 [facility] Comment on above: Order Comment: 1 Y Performed By: #### L 503.6620, L500.4050, L503.6005, L501.5425, L100.0100 #### [facility] [address] [place], [address] Sodium [Moles/Vol] 138 mmol/L Normal 136-145 [facility] Comment on above: Order Comment: 1 Y Performed By: #### L 503.6620, L500.4050, L503.6005, L501.5425, L100.0100 #### [facility] [address] [place], [address] T PROT 8.1 g/dL Normal 6.4-8.2 [facility] Comment on above: Order Comment: 1 Y Performed By: #### L 503.6620, L500.4050, L503.6005, L501.5425, L100.0100 #### [facility] [address] [place], [address] Urea nitrogen [Mass/Vol] 76 mg/dL High 7-18 [facility] Comment on above: Order Comment: 1 Y Performed By: #### L 503.6620, L500.4050, L503.6005, L501.5425, L100.0100 #### [facility] [address] [place], [address] Echo Complete W/ Contraston 03-06-2024 Echo Complete W/ Contrast [facility] [address] [place] [address] Echo Complete W/ Contrast 03/06/24 1109 MR#: [id number] Acct: [id number] Name: SHEREE MUNIZ Rep #: [id number] : 1955 68 From: Sofia Garg MD Attending Dr: Dr. Elver Bradley, DO Status : ADM IN Ordering Dr: Elver Bradley DO Date: 03/06/24 Location: [facility] Sex: M C Admitted: 03/06/24 Reason For Study: CHF Procedure This was a 2D Doppler, Color Flow transthoracic echocardiogram. The study was technically difficult. Contrast injection was performed. Exam performed portable in patient room. Left Ventricle Moderate to severe left ventricular concentric hypertrophy. Severely dilated left ventricular cavity. Severe generalized hypokinesis of the left ventricle. Estimated LVEF 35%. Right Ventricle Normal right ventricle. Atria The left atrium is mildly enlarged. Normal right atrium. Mitral Valve Mild (1+) mitral valve insufficiency. Tricuspid Valve Trivial tricuspid valve insufficiency. Right ventricular systolic pressure estimated to be 38 mmHg. Aortic Valve The aortic valve is not well visualized. Moderate to severe aortic valve calcification. Moderate aortic valve stenosis with mild aortic valve regurgitation. Pulmonic Valve The pulmonic valve is not well visualized. Great Vessels Moderately dilated aortic root. Pericardium/Pleural No pericardial effusion. Medication Diluted definity 3ml given slow IV push to enhance endocardial definition. MMode/2D Measurements Calculations LVIDd: 7.6 cm IVSd: 1.7 cm LVOT diam: 2.7 cm LVIDs: 6.2 cm LVPWd: 1.4 cm RVDd: 3.4 cm FS: 17.8 % LVOT area: 5.8 cm2 Ao root diam: 4.8 cm LAV(MOD-bp): 74.7 ml LVAd ap4: 62.1 cm2 LAV(MOD-bp) Indexed: 28.6 ml/m2 LVLd ap4: 11.8 cm LAV(MOD-sp2): 73.8 ml EDV(MOD-sp4): 265.1 ml LAV(MOD-sp4): 65.3 ml EDV(sp4-el): 277.9 ml LVAs ap4: 52.7 cm2 LVLs ap4: 11.3 cm ESV(MOD-sp4): 202.4 ml ESV(sp4-el): 208.9 ml EF(MOD-sp4): 23.7 % EF(sp4-el): 24.8 % SV(MOD-sp4): 62.7 ml SV(sp4-el): 69.0 ml LA A4 area: 20.5 cm2 RA A4 area: 19.3 cm2 TAPSE: 2.0 cm Time Measurements MV dec time: 0.18 sec Doppler Measurements Calculations MV E max cheri: 90.0 cm/sec Lat Peak E' Cheri: 9.6 cm/sec Med Peak E' Cheri: 4.1 cm/sec MV A max cheri: 58.0 cm/sec E/E' lat: 9.4 E/E' med: 21.8 MV E/A: 1.6 MV V2 max: 130.8 cm/sec MV P1/2t max cheri: 131.6 cm/sec Ao V2 max: 327.2 cm/sec MV max P.8 mmHg MV P1/2t: 79.5 msec Ao max P.9 mmHg MV V2 mean: 63.9 cm/sec MV dec slope: 484.9 cm/sec2 Ao V2 mean: 230.8 cm/sec MV mean P.0 mmHg MVA(P1/2t): 2.8 cm2 Ao mean P.8 mmHg MV V2 VTI: 43.5 cm Ao V2 VTI: 86.6 cm MVA(VTI): 2.6 cm2 AV (velocity ratio): 0.23 BEE(I,D): 1.3 cm2 BEE(V,D): 1.4 cm2 LV V1 max: 76.4 cm/sec MR max cheri: 447.6 cm/sec SV(LVOT): 114.7 ml LV V1 max P.3 mmHg MR max P.1 mmHg LV V1 mean P.4 mmHg LV V1 mean: 55.5 cm/sec LV V1 VTI: 19.6 cm TR max cheri: 240.4 cm/sec TR max P.1 mmHg ECHO/Echo Complete W/ Contrast Interpretation Summary Technically difficult study. Moderate to severe left ventricular concentric hypertrophy. Severely dilated left ventricular cavity. Severe generalized hypokinesis of the left ventricle. Estimated LVEF 35%. Mild (1+) mitral valve insufficiency. Right ventricular systolic pressure estimated to be 38 mmHg. Moderate to severe aortic valve calcification. Moderate aortic valve stenosis with mild aortic valve regurgitation. Moderately dilated aortic root. The study was technically difficult. ___ Ordering Physician: Elver Bradley Performed By: Tani Orta and Student 03/06/24 1622 Date Sofia Garg MD CC: Dr. Elver Bradley DO; Dr. Dawson Olsen MD Date Dictated: 03/06/24 1109 Date Transcribed: 03/06/241621 Guide: Signed Normal [facility] Emergency Department Summary on 03-06-2024 Emergency Department Summary [facility] Medical Records Department [address] [place] [address] Emergency Department Summary 03/06/24 MR#: [id number] Acct: [id number] Name: SHEREE MUNIZ Rep #: [id number] : 1955 68 From: Tone Olivier MD PCP: Dr. Dawson Olsen MD Status:REG ER Location: ED HPI History of Present Illness Chief Complaint: Shortness of Breath Detail of Chief Complaint: Shortness of breath Informant: patient Onset/Context/Timing Onset: Days (Became worse Monday, March 04) Context: Gradual Onset Timing: Continuous Quality: Shortness of breath, orthopnea, slight chest discomfort Location: Anterior chest pressure Current Severity: Severe Maximum Severity: Severe Worsened by: Activity and lying flat Relieved by: Nothing Associated Symptoms Associated Symptoms: abdominal pain, chest pain (Anterior chest discomfort/tightness), chills, cough (Cough with thick white sputum), fever, vomiting, diarrhea, palpitations and suicidal thoughts Narrative Narrative: Patient is a 68-year-old male who presents with increasing shortness of breath that started Monday. He is normally on 5 L by nasal cannula. He does have history of obstructive sleep apnea, chronic respiratory failure with hypercapnia and hypoxia, dilated cardiomyopathy, type 2 diabetes, hypertension and hyperlipidemia. He also has history of thrombocytopenia anemia. He denies fever or chills. He states he has been sleeping with 2 pillows on his left side. He has a BiPAP machine that he uses at night. He is on continuous oxygen at 5 L. He denies headache, visual, ocular auditory symptoms. He states it is not normal for him to cough up colored sputum. He denies abdominal pain, nausea, vomit or diarrhea. He has chronic swelling of his lower extremities. He denies urologic symptoms. Prior similar symptoms: Yes Recent Illness[facility] Medical History Walking difficulty due to ankle and foot Wound healing, delayed Vitamin D deficiency Pulmonary embolism Congestive heart failure Aortic valve disease Lymphedema Venous insufficiency of both lower extremities Sleep apnea Super obesity Hyperlipidemia Home Medications ???Medication ???Instructions ???Recorded ???Last Taken ???Type carvedilol 25 mg tablet 25 mg PO BID 01/18/17 10/19/18 History glipizide 5 mg tablet 5 mg PO DAILY 07/18/18 Unknown History Bone And Tissue 3 cap PO BID 10/15/18 Unknown History calcium carbonate (Oyster Shell 500 mg PO DAILY@0800 10/15/18 Unknown History Calcium 500) cholecalciferol (vitamin D3) 50 2,000 unit PO DAILY 10/15/18 Unknown History mcg (2,000 unit) capsule (Vitamin D3) aspirin 81 mg capsule 81 mg PO DAILY 03/06/24 Unknown History bumetanide 2 mg tablet 2 mg PO BID 03/06/24 Unknown History hydralazine 50 mg tablet 50 mg PO TID 03/06/24 Unknown History insulin aspart U-100 .ROUTE QHS 03/06/24 Unknown History insulin aspart U-100 5 unit subcut DAILY 03/06/24 Unknown History Allergy/AdvReac Type Severity Reaction Status Date / Time No Known Allergies Allergy Verified 01/04/19 11:35 Social History (Updated 03/06/24 @ 08:[address] Tone Olivier MD) household members: none Smoking Status: Never smoker ROS ROS ED Constitutional Constitutional ED: Reports sweats; Denies chills, fever(s), subjective or weight loss Eyes Eyes: Denies blurry vision or change in vision ENT ENT ED: Denies ear pain, rhinorrhea or sore throat Cardiovascular Cardiovascular: Reports chest pain and orthopnea; Denies palpitations, paroxysmal nocturnal dyspnea or racing heartbeat Respiratory/Chest Respiratory/Chest: Reports cough, dyspnea, dyspnea on exertion, orthopnea and sputum; Denies paroxysmal nocturnal dyspnea Gastrointestinal Gastrointestinal: Denies abdominal pain, nausea or vomiting Genitourinary Genitourinary ED: Denies dysuria, hematuria or urinary frequency Musculoskeletal Musculoskeletal: Denies arthralgias, back pain, myalgias or neck pain Integumentary Denies rash Neurologic Neurologic: Reports weakness; Denies headache(s) or paresthesias Psychiatric Psychiatric: Denies anxiety Endocrine Endocrinology: Denies polydipsia, polyphagia or polyuria Hematologic/Lymphatic Hematologic/Lymphatic: Denies easy bleeding or easy bruising Allergic/Immunologic Allergic/Immunologic ED: Denies mouth swelling or tongue swelling EXAM Physical Exam Const Vital Signs: 03/06/24 08:29 03/06/24 08:36 03/06/24 08:36 Temperature 96.3 F L Temperature Source Temporal Pulse Rate 86 86 Respiratory Rate 27 H 35 H Respiratory Effort Short of Breath Respiratory Depth Shallow Respiratory Pattern Tachypnea Blood Pressure 131/79 H Blood Pressure Mean 96 Pulse Ox 81 87 Oxygen Delivery Meth (more content not included)... Normal [facility] H AND P Exam - Hospitaliston 03-06-2024 H&P Exam - Hospitalist [facility] Medical Records Department [address] [place] [address] H P Exam - Hospitalist 03/06/24 0944 MR#: [id number] Acct: [id number] Name: SHEREE MUNIZ Rep #: [id number] : 1955 68 From: Elver Bradley DO PCP: Dr. Dawson Olsen MD Status:ADM IN Location: [facility] [id number] HPI - General General Date of Admission: 03/06/24 Date of Service: 03/06/24 Chief Complaint: Worsening shortness of breath HPI Narrative SHEREE MNUIZ, is a 68 M who presented to [facility] ED on 03/06/2024 with worsening shortness of breath. Saw patient at bedside in the ED. Patient was on BiPAP when I saw him and was breathing fairly comfortably. Stated he was breathing more comfortably now compared to when he came into the ED. Patient has history significant for morbid obesity, ANDRADE and hypertension. Notably has reported history of dilated cardiomyopathy; however last echo from 2017 in our system shows an EF of 50 to 55% with moderate concentric LV hypertrophy and only mild hypokinesis of the left ventricle. Patient states he did not wear home oxygen until a few months ago. States that he went [place] a [place] with [place] and had significant difficulty with breathing then, and when he returned home his oxygen levels were tested and he was started on home oxygen. He has been wearing 5 L nasal cannula at baseline. States that he has had worsening shortness of breath over the past several days. Has needed to sleep propped up with more pillows at night. Chest x-ray in ED showed vascular congestion with CHF. BNP 1794. Was initially requiring 10 L high flow nasal cannula to maintain adequate oxygen saturations and to continue to have some increased work of breathing. Was then placed on BiPAP with improvement in oxygenation and and work of breathing. Patient has chronic lower extremity swelling and states he does not feel like it is much worse than his normal. Reports taking his home medications as prescribed. Does report having decreased urine output recently. Lives at home with his and typically is able to do most things for himself around the house. No other acute concerns at this time. Will be admitted for further management. [facility] Medical History Walking difficulty due to ankle and foot Wound healing, delayed Vitamin D deficiency Pulmonary embolism Congestive heart failure Aortic valve disease Lymphedema Venous insufficiency of both lower extremities Sleep apnea Super obesity Hyperlipidemia Home Medications ???Medication ???Instructions ???Recorded ???Last Taken ???Type carvedilol 25 mg tablet 25 mg PO BID blood pressure 01/18/17 10/19/18 History glipizide 5 mg tablet 5 mg PO DAILY diabetes 07/18/18 Unknown History aspirin 81 mg capsule 81 mg PO DAILY preventative 03/06/24 Unknown History bumetanide 2 mg tablet 2 mg PO BID water pill 03/06/24 Unknown History hydralazine 50 mg tablet 50 mg PO TID blood pressure 03/06/24 Unknown History insulin aspart U-100 5 unit subcut DAILY 03/06/24 Unknown History insulin human U-100 NPH-regulr 5 unit subcut BID diabetes 03/06/24 Unknown History 70-30 mix 100 unit/mL subcutaneous susp (Humulin 70/30 U-100 Insulin) Allergy/AdvReac Type Severity Reaction Status Date / Time No Known Allergies Allergy Verified 01/04/19 11:35 Social History (Updated 03/06/24 @ 10:48 by Arlene Holguin) household members: none Smoking Status: Never smoker ROS Constitutional Constitutional: Reports fatigue; Denies chills, fever(s) or weakness Eyes Eyes: Denies change in vision Cardiovascular Cardiovascular: Reports dyspnea on exertion, edema and orthopnea; Denies chest pain Respiratory/Chest Respiratory/Chest: Reports shortness of breath with exertion; Denies cough, shortness of breath at rest or wheezing Gastrointestinal Gastrointestinal: Denies abdominal pain, constipation, diarrhea, nausea or vomiting Genitourinary Genitourinary: Denies dysuria Musculoskeletal Musculoskeletal: Denies arthralgias or myalgias Neurologic Neurologic: Denies dizziness, focal weakness or headache(s) Vital Signs Vital Signs Vital Signs: 03/06/24 08:29 03/06/24 08:36 03/06/24 08:36 Temperature 96.3 F L Temperature Source Temporal Pulse Rate 86 86 Respiratory Rate 27 H 35 H Respiratory Effort Short of Breath Respiratory Depth Shallow Respiratory Pattern Tachypnea Blood Pressure 131/79 H Blood Pressure Mean 96 Pulse Ox 81 87 Oxygen Delivery Method Nasal Cannula High Flow Non-Rebreather @ 15L/min Oxygen Flow Rate (L/min) 5 10 10 Fraction of Inspired Oxygen (FIO2) 03/06/24 08:48 03/06/24 08:48 03/06/24 09:31 Temperature Temperature Source Pulse Rate 75 63 Respiratory Rate 30 H 14 Respiratory Effo (more content not included)... Normal [facility] L501.4020on 03-06-2024 TROPONIN-I HS 73 pg/mL Normal 3.0-78.0 [facility] Comment on above: Result Comment: Mark og Note: New Test Units and Gender Specific Reference Ranges. For more information see Policy Stat Procedure [place] High Sensitivity Troponin (TNIH) and attachments. Performed By: #### L 9000.0800 #### [facility] [address] [place], [address] L501.5425on 03-06-2024 TROPONIN-I HS 75 pg/mL Normal 3.0-78.0 [facility] Comment on above: Order Comment: 1 Y Result Comment: Mark og Note: New Test Units and Gender Specific Reference Ranges. For more information see Policy Stat Procedure [place] High Sensitivity Troponin (TNIH) and attachments. Performed By: #### L 503.6620, L500.4050, L503.6005, L501.5425, L100.0100 #### [facility] [address] [place], [place], [address] Lactic Acidon 03-06-2024 Lactate [Moles/Vol] 0.7 mmol/L Normal 0.4-1.9 [facility] Comment on above: Order Comment: Y Performed By: #### L 503.6620, L500.4050, L503.6005, L501.5425, L100.0100 #### [facility] [address] [place], [place], [address] .Auto Diffon 08-19-2022 Basophil, Absolute 0.0 10 3/mcL Normal 0.0-0.3 [facility] (MD) Comment on above: Performed By: #### G FR, CBC, ADIFF, BMP, ANEU ####[place] [address] [place] [address] Basophils/100 WBC (Bld) 1.0 % Normal 0.0-2.5 [facility] (MD) Comment on above: Performed By: #### G FR, CBC, ADIFF, BMP, ANEU ####[facility] [place] [address] Eosinophil, Absolute 0.1 10 3/mcL Normal 0.0-0.7 [facility] ([place] Comment on above: Performed By: #### G FR, CBC, ADIFF, BMP, ANEU ####[place] [address] [place] [address] Eosinophils/100 WBC (Bld) 2.9 % Normal 0.0-6.0 [facility] ([place]) Comment on above: Performed By: #### G FR, CBC, ADIFF, BMP, ANEU ####[address] [address] Lymphocyte, Absolute 0.6 10 3/mcL Low 0.9-4.3 [facility] ([place]) Comment on above: Performed By: #### G FR, CBC, ADIFF, BMP, ANEU ####[address] [address] Lymphocytes/100 WBC (Bld) 16.1 % Low 20.0-40.0 [facility] ([place]) Comment on above: Performed By: #### G FR, CBC, ADIFF, BMP, ANEU ####[address] [address] Monocyte, Absolute 0.4 10 3/mcL Normal 0.1-1.4 [facility] ([place]) Comment on above: Performed By: #### G FR, CBC, ADIFF, BMP, ANEU ####[address] [address] Monocytes/100 WBC (Bld) 10.7 % Normal 2.0-13.0 [facility] ([place]) Comment on above: Performed By: #### G FR, CBC, ADIFF, BMP, ANEU ####[address] [address] Neutrophils/100 WBC (Bld) 69.3 % Normal 50.0-75.0 [facility] ([place]) Comment on above: Performed By: #### G FR, CBC, ADIFF, BMP, ANEU ####[address] [address] .GFRon 08-19-2022 GFR 35 ml/min/1.73sqm Normal [facility] ([place]) Comment on above: Result Comment: GFR Population mean for , [...] 15 mL/min/1.73 square meters Performed By: #### G FR, CBC, ADIFF, BMP, ANEU ####[address] [address] GFR Non- 29 ml/min/1.73sqm Normal [facility] ([place]) Comment on above: Result Comment: GFR Population mean for , [...] 15 mL/min/1.73 square meters Performed By: #### G FR, CBC, ADIFF, BMP, ANEU ####[place] [address] .NEUABSon 08-19-2022 Neutrophil, Absolute 2.6 10 3/mcL Normal 2.3-8.1 [facility] ([place] Comment on above: Performed By: #### G FR, CBC, ADIFF, BMP, ANEU ####[place] [address] BMPon 08-19-2022 BUN/Creatinine Ratio 39.8 ratio High 10.0-22.0 [facility] ([place]) Comment on above: Performed By: #### G FR, CBC, ADIFF, BMP, ANEU ####[place] [address] Calcium [Mass/Vol] 8.8 mg/dL Normal 8.7-10.4 [facility] ([place]) Comment on above: Performed By: #### G FR, CBC, ADIFF, BMP, ANEU ####[address] [address] Chloride [Moles/Vol] 102 mmol/L Normal 98-110 [facility] ([place]) Comment on above: Performed By: #### G FR, CBC, ADIFF, BMP, ANEU ####[address] [address] CO2 [Moles/Vol] 28 mmol/L Normal 22-32 [facility] ([place]) Comment on above: Performed By: #### G FR, CBC, ADIFF, BMP, ANEU ####[address] [address] Creatinine [Mass/Vol] 2.26 mg/dL High 0.60-1.40 [facility] ([place]) Comment on above: Performed By: #### G FR, CBC, ADIFF, BMP, ANEU ####[address] [address] Electrolyte Balance 7.0 mEq/L Normal 4.0-15.0 [facility] ([place]) Comment on above: Performed By: #### G FR, CBC, ADIFF, BMP, ANEU ####[address] [address] Glucose [Mass/Vol] 160 mg/dL High 82-115 [facility] ([place]) Comment on above: Performed By: #### G FR, CBC, ADIFF, BMP, ANEU ####[address] [address] Potassium [Moles/Vol] 4.1 mmol/L Normal 3.5-5.0 [facility] ([place]) Comment on above: Performed By: #### G FR, CBC, ADIFF, BMP, ANEU ####[address] [address] Sodium [Moles/Vol] 137 mmol/L Normal 136-145 [facility] ([place]) Comment on above: Performed By: #### G FR, CBC, ADIFF, BMP, ANEU ####[address] [address] Urea nitrogen [Mass/Vol] 90.0 mg/dL High 8.0-22.0 [facility] ([place]) Comment on above: Performed By: #### G FR, CBC, ADIFF, BMP, ANEU ####[place] [address] CBCon 08-19-2022 Erythrocyte distribution width (RBC) [Ratio] 17.5 % High 11.5-15.5 [facility] ([place]) Comment on above: Performed By: #### G FR, CBC, ADIFF, BMP, ANEU ####[place] [address] Hematocrit (Bld) [Volume fraction] 43.8 % Normal 40.0-52.0 [facility] ([place]) Comment on above: Performed By: #### G FR, CBC, ADIFF, BMP, ANEU ####[place] [address] Hgb 13.9 G/dL Normal 13.0-17.5 [facility] ([place]) Comment on above: Performed By: #### G FR, CBC, ADIFF, BMP, ANEU ####[place] [address] MCH (RBC) [Entitic mass] 28.2 pg Normal 27.0-33.0 [facility] ([place]) Comment on above: Performed By: #### G FR, CBC, ADIFF, BMP, ANEU ####[place] [address] MCHC 31.7 G/dL Low 32.0-36.0 [facility] ([place]) Comment on above: Performed By: #### G FR, CBC, ADIFF, BMP, ANEU ####[place] [address] MCV (RBC) [Entitic vol] 88.9 fL Normal 81.0-100.0 [facility] ([place]) Comment on above: Performed By: #### G FR, CBC, ADIFF, BMP, ANEU ####[place] [address] Platelet 111 10 3/mcL Low 150-450 [facility] ([place]) Comment on above: Performed By: #### G FR, CBC, ADIFF, BMP, ANEU ####[place] [id number] [place] [address] Platelet mean volume (Bld) [Entitic vol] 9.5 fL Normal 6.4-10.5 [facility] ([place]) Comment on above: Performed By: #### G FR, CBC, ADIFF, BMP, ANEU ####[place] [address] [place] [address] RBC 4.92 10 6/mcL Normal 4.50-6.00 [facility] ([place]) Comment on above: Performed By: #### G FR, CBC, ADIFF, BMP, ANEU ####[place] [id number] [place], [place] [id number] WBC 3.7 10 3/mcL Low 4.5-10.8 [facility] ([place]) Comment on above: Performed By: #### G FR, CBC, ADIFF, BMP, ANEU ####[place] [address] HBCABon 08-19-2022 Hep B Core Ab Negative Normal Negative [facility] ([place]) Comment on above: Result Comment: No e vidence of current or past infection with Hepatitis B virus. Should recent infection be suspected, repeat testing may be considered 3-4 weeks after this draw. Performed By: [facility] [address] [place] [address] Bit Bender: Lillian Jones III#: [id number] Performed By: #### H BSAG #### [place] [address] LABORATORYOrdered By: Skylar Becerra on 08-19-2022 Glucose [Mass/Vol] 159 mg/dL Invalid Interpretation Code 82 - 115 mg/dL [facility] Work Phone: LABORATORYOrdered By: Aspen Tay on 08-19-2022 Blood Glucose Testing Reason Routine (08/19/22 11:21 AM) [facility] Work Phone: Glucose [Mass/Vol] 208 mg/dL Invalid Interpretation Code 82 - 115 mg/dL [facility] Work Phone: LABORATORYOrdered By: Maria Ross on 08-19-2022 Blood Glucose Testing Reason Routine (08/19/22 8:12 AM) [facility] Work Phone: Glucose [Mass/Vol] 216 mg/dL Invalid Interpretation Code 82 - 115 mg/dL [facility] Work Phone: LABORATORYOrdered By: SYSTEM SYSTEM on 08-19-2022 Basophils (Bld) [#/Vol] 0.0 103/mcL Invalid Interpretation Code 0.0 - 0.3 10^3/mcL Workflow SS Basophils/100 WBC (Bld) 1.0 % Invalid Interpretation Code 0.0 - 2.5 % Workflow SS Calcium [Mass/Vol] 8.8 mg/dL Invalid Interpretation Code 8.7 - 10.4 mg/dL ADM SS Chloride [Moles/Vol] 102 mmol/L Invalid Interpretation Code 98 - 110 mEq/L ADM SS CO2 [Moles/Vol] 28 mmol/L Invalid Interpretation Code 22 - 32 mEq/L ADM SS Creatinine [Mass/Vol] 2.26 mg/dL Invalid Interpretation Code 0.60 - 1.40 mg/dL ADM SS Electrolyte Balance 7.0 mEq/L Invalid Interpretation Code 4.0 - 15.0 mEq/L ADM SS Eosinophils (Bld) [#/Vol] 0.1 103/mcL Invalid Interpretation Code 0.0 - 0.7 10^3/mcL Workflow SS Eosinophils/100 WBC (Bld) 2.9 % Invalid Interpretation Code 0.0 - 6.0 % Workflow SS Erythrocyte distribution width (RBC) [Ratio] 17.5 % Invalid Interpretation Code 11.5 - 15.5 % Workflow SS GFR/1.73 sq M.predicted among blacks MDRD (S/P/Bld) [Vol rate/Area] 35 ml/min/1.73sqm Invalid Interpretation Code ADM SS GFR/1.73 sq M.predicted among non-blacks MDRD (S/P/Bld) [Vol rate/Area] 29 ml/min/1.73sqm Invalid Interpretation Code ADM SS Glucose [Mass/Vol] 160 mg/dL Invalid Interpretation Code 82 - 115 mg/dL ADM SS Hematocrit (Bld) [Volume fraction] 43.8 % Invalid Interpretation Code 40.0 - 52.0 % AH Workflow SS Hemoglobin (Bld) [Mass/Vol] 13.9 G/dL Invalid Interpretation Code 13.0 - 17.5 G/dL AH Workflow SS Lymphocytes (Bld) [#/Vol] 0.6 103/mcL Invalid Interpretation Code 0.9 - 4.3 10^3/mcL AH Workflow SS Lymphocytes/100 WBC (Bld) 16.1 % Invalid Interpretation Code 20.0 - 40.0 % AH Workflow SS Magnesium [Mass/Vol] 2.4 mg/dL Invalid Interpretation Code 1.6 - 2.4 mg/dL ADM SS MCH (RBC) [Entitic mass] 28.2 pg Invalid Interpretation Code 27.0 - 33.0 pg AH Workflow SS MCHC 31.7 G/dL Invalid Interpretation Code 32.0 - 36.0 G/dL AH Workflow SS MCV (RBC) [Entitic vol] 88.9 fL Invalid Interpretation Code 81.0 - 100.0 fL AH Workflow SS Monocytes (Bld) [#/Vol] 0.4 103/mcL Invalid Interpretation Code 0.1 - 1.4 10^3/mcL AH Workflow SS Monocytes/100 WBC (Bld) 10.7 % Invalid Interpretation Code 2.0 - 13.0 % AH Workflow SS Neutrophils (Bld) [#/Vol] 2.6 103/mcL Invalid Interpretation Code 2.3 - 8.1 10^3/mcL AH Workflow SS Neutrophils/100 WBC (Bld) 69.3 % Invalid Interpretation Code 50.0 - 75.0 % AH Workflow SS Platelet mean volume (Bld) [Entitic vol] 9.5 fL Invalid Interpretation Code 6.4 - 10.5 fL AH Workflow SS Platelets (Bld) [#/Vol] 111 103/mcL Invalid Interpretation Code 150 - 450 10^3/mcL AH Workflow SS Potassium [Moles/Vol] 4.1 mmol/L Invalid Interpretation Code 3.5 - 5.0 mEq/L ADM SS RBC (Bld) [#/Vol] 4.92 106/mcL Invalid Interpretation Code 4.50 - 6.00 10^6/mcL AH Workflow SS Sodium [Moles/Vol] 137 mmol/L Invalid Interpretation Code 136 - 145 mEq/L ADM SS Urea nitrogen [Mass/Vol] 90.0 mg/dL Invalid Interpretation Code 8.0 - 22.0 mg/dL AH ADM SS Urea nitrogen/Creatinine [Mass ratio] 39.8 ratio Invalid Interpretation Code 10.0 - 22.0 ratio AH ADM SS WBC (Bld) [#/Vol] 3.7 103/mcL Invalid Interpretation Code 4.5 - 10.8 10^3/mcL AH Workflow SS MGon 08-19-2022 Magnesium [Mass/Vol] 2.4 mg/dL Normal 1.6-2.4 [facility] ([place]) Comment on above: Performed By: #### M G ####[address] [address] .Auto Diffon 08-18-2022 Basophil, Absolute 0.0 10 3/mcL Normal 0.0-0.3 [facility] ([place]) Comment on above: Performed By: #### A DIFF, CBC, ANEU ####[address] [address] Basophils/100 WBC (Bld) 0.4 % Normal 0.0-2.5 [facility] ([place]) Comment on above: Performed By: #### A DIFF, CBC, ANEU ####[address] [address] Eosinophil, Absolute 0.1 10 3/mcL Normal 0.0-0.7 [facility] ([place]) Comment on above: Performed By: #### A DIFF, CBC, ANEU ####[address] [address] Eosinophils/100 WBC (Bld) 3.0 % Normal 0.0-6.0 [facility] ([place]) Comment on above: Performed By: #### A DIFF, CBC, ANEU ####[address] [address] Lymphocyte, Absolute 0.7 10 3/mcL Low 0.9-4.3 [facility] ([place]) Comment on above: Performed By: #### A DIFF, CBC, ANEU ####[address] [address] Lymphocytes/100 WBC (Bld) 19.0 % Low 20.0-40.0 [facility] ([place]) Comment on above: Performed By: #### A DIFF, CBC, ANEU ####[address] [address] Monocyte, Absolute 0.4 10 3/mcL Normal 0.1-1.4 [facility] ([place]) Comment on above: Performed By: #### A DIFF, CBC, ANEU ####[address] [address] Monocytes/100 WBC (Bld) 11.6 % Normal 2.0-13.0 [facility] ([place]) Comment on above: Performed By: #### A DIFF, CBC, ANEU ####[address] [address] Neutrophils/100 WBC (Bld) 66.0 % Normal 50.0-75.0 [facility] ([place]) Comment on above: Performed By: #### A DIFF, CBC, ANEU ####[address] [address] .GFRon 08-18-2022 GFR 33 ml/min/1.73sqm Normal [facility] ([place]) Comment on above: Result Comment: GFR Population mean for , [...] 15 mL/min/1.73 square meters Performed By: #### B MP, GFR ####[address] [address] GFR Non- 27 ml/min/1.73sqm Normal [facility] ([place]) Comment on above: Result Comment: GFR Population mean for , [...] 15 mL/min/1.73 square meters Performed By: #### B MP, GFR ####[address] [address] .NEUABSon 08-18-2022 Neutrophil, Absolute 2.5 10 3/mcL Normal 2.3-8.1 [facility] ([place]) Comment on above: Performed By: #### A DIFF, CBC, ANEU ####[place] [address] BMPon 08-18-2022 BUN/Creatinine Ratio 49.4 ratio High 10.0-22.0 [facility] ([place]) Comment on above: Performed By: #### B MP, GFR ####[address] [address] Calcium [Mass/Vol] 9.2 mg/dL Normal 8.7-10.4 [facility] ([place]) Comment on above: Performed By: #### B MP, GFR ####[address] [address] Chloride [Moles/Vol] 96 mmol/L Low 98-110 [facility] ([place]) Comment on above: Performed By: #### B MP, GFR ####[address] [address] CO2 [Moles/Vol] 32 mmol/L Normal 22-32 [facility] ([place]) Comment on above: Performed By: #### B MP, GFR ####[address] [address] Creatinine [Mass/Vol] 2.41 mg/dL High 0.60-1.40 [facility] ([place]) Comment on above: Performed By: #### B MP, GFR ####[address] [address] Electrolyte Balance 8.0 mEq/L Normal 4.0-15.0 [facility] ([place]) Comment on above: Performed By: #### B MP, GFR ####[address] [address] Glucose [Mass/Vol] 227 mg/dL High 82-115 [facility] ([place]) Comment on above: Performed By: #### B MP, GFR ####[address] [address] Potassium [Moles/Vol] 4.2 mmol/L Normal 3.5-5.0 [facility] ([place]) Comment on above: Performed By: #### B MP, GFR ####[address] [address] Sodium [Moles/Vol] 136 mmol/L Normal 136-145 [facility] ([place]) Comment on above: Performed By: #### B MP, GFR ####[place] [address] Urea nitrogen [Mass/Vol] 119.0 mg/dL Critically abnormal 8.0-22.0 [facility] ([place]) Comment on above: Performed By: #### B MP, GFR ####[address] [address] CBCon 08-18-2022 Erythrocyte distribution width (RBC) [Ratio] 17.7 % High 11.5-15.5 [facility] ([place]) Comment on above: Performed By: #### A DIFF, CBC, ANEU ####[address] [address] Hematocrit (Bld) [Volume fraction] 44.2 % Normal 40.0-52.0 [facility] ([place]) Comment on above: Performed By: #### A DIFF, CBC, ANEU ####[address] [address] Hgb 13.9 G/dL Normal 13.0-17.5 [facility] ([place]) Comment on above: Performed By: #### A DIFF, CBC, ANEU ####[address] [address] MCH (RBC) [Entitic mass] 27.9 pg Normal 27.0-33.0 [facility] ([place]) Comment on above: Performed By: #### A DIFF, CBC, ANEU ####[address] [address] MCHC 31.4 G/dL Low 32.0-36.0 [facility] ([place]) Comment on above: Performed By: #### A DIFF, CBC, ANEU ####[place] [address] MCV (RBC) [Entitic vol] 88.8 fL Normal 81.0-100.0 [facility] ([place]) Comment on above: Performed By: #### A DIFF, CBC, ANEU ####[place] [address] Platelet 120 10 3/mcL Low 150-450 [facility] ([place]) Comment on above: Performed By: #### A DIFF, CBC, ANEU ####[place] [address] Platelet mean volume (Bld) [Entitic vol] 9.2 fL Normal 6.4-10.5 [facility] ([place]) Comment on above: Performed By: #### A DIFF, CBC, ANEU ####[place] [address] RBC 4.98 10 6/mcL Normal 4.50-6.00 [facility] ([place]) Comment on above: Performed By: #### A DIFF, CBC, ANEU ####[place] [address] WBC 3.8 10 3/mcL Low 4.5-10.8 [facility] ([place]) Comment on above: Performed By: #### A DIFF, CBC, ANEU ####[place] [address] LABORATORYOrdered By: Lexie Guzman on 08-18-2022 Blood Glucose Testing Reason Routine (08/18/22 4:57 PM) [facility] Work Phone: LABORATORYOrdered By: SYSTEM SYSTEM on 08-18-2022 Calcium [Mass/Vol] 9.2 mg/dL Invalid Interpretation Code 8.7 - 10.4 mg/dL ADM SS Chloride [Moles/Vol] 96 mmol/L Invalid Interpretation Code 98 - 110 mEq/L ADM SS CO2 [Moles/Vol] 32 mmol/L Invalid Interpretation Code 22 - 32 mEq/L ADM SS Creatinine [Mass/Vol] 2.41 mg/dL Invalid Interpretation Code 0.60 - 1.40 mg/dL ADM SS Electrolyte Balance 8.0 mEq/L Invalid Interpretation Code 4.0 - 15.0 mEq/L ADM SS GFR/1.73 sq M.predicted among blacks MDRD (S/P/Bld) [Vol rate/Area] 33 ml/min/1.73sqm Invalid Interpretation Code ADM SS GFR/1.73 sq M.predicted among non-blacks MDRD (S/P/Bld) [Vol rate/Area] 27 ml/min/1.73sqm Invalid Interpretation Code ADM SS Glucose [Mass/Vol] 227 mg/dL Invalid Interpretation Code 82 - 115 mg/dL ADM SS Potassium [Moles/Vol] 4.2 mmol/L Invalid Interpretation Code 3.5 - 5.0 mEq/L ADM SS Sodium [Moles/Vol] 136 mmol/L Invalid Interpretation Code 136 - 145 mEq/L ADM SS Urea nitrogen [Mass/Vol] 119.0 mg/dL Invalid Interpretation Code 8.0 - 22.0 mg/dL ADM SS Urea nitrogen/Creatinine [Mass ratio] 49.4 ratio Invalid Interpretation Code 10.0 - 22.0 ratio ADM SS Basophils (Bld) [#/Vol] 0.0 103/mcL Invalid Interpretation Code 0.0 - 0.3 10^3/mcL AH Workflow SS Basophils/100 WBC (Bld) 0.4 % Invalid Interpretation Code 0.0 - 2.5 % Workflow SS Eosinophils (Bld) [#/Vol] 0.1 103/mcL Invalid Interpretation Code 0.0 - 0.7 10^3/mcL AH Workflow SS Eosinophils/100 WBC (Bld) 3.0 % Invalid Interpretation Code 0.0 - 6.0 % AH Workflow SS Erythrocyte distribution width (RBC) [Ratio] 17.7 % Invalid Interpretation Code 11.5 - 15.5 % AH Workflow SS Hematocrit (Bld) [Volume fraction] 44.2 % Invalid Interpretation Code 40.0 - 52.0 % AH Workflow SS Hemoglobin (Bld) [Mass/Vol] 13.9 G/dL Invalid Interpretation Code 13.0 - 17.5 G/dL AH Workflow SS Lymphocytes (Bld) [#/Vol] 0.7 103/mcL Invalid Interpretation Code 0.9 - 4.3 10^3/mcL AH Workflow SS Lymphocytes/100 WBC (Bld) 19.0 % Invalid Interpretation Code 20.0 - 40.0 % AH Workflow SS MCH (RBC) [Entitic mass] 27.9 pg Invalid Interpretation Code 27.0 - 33.0 pg AH Workflow SS MCHC 31.4 G/dL Invalid Interpretation Code 32.0 - 36.0 G/dL AH Workflow SS MCV (RBC) [Entitic vol] 88.8 fL Invalid Interpretation Code 81.0 - 100.0 fL AH Workflow SS Monocytes (Bld) [#/Vol] 0.4 103/mcL Invalid Interpretation Code 0.1 - 1.4 10^3/mcL AH Workflow SS Monocytes/100 WBC (Bld) 11.6 % Invalid Interpretation Code 2.0 - 13.0 % AH Workflow SS Neutrophils (Bld) [#/Vol] 2.5 103/mcL Invalid Interpretation Code 2.3 - 8.1 10^3/mcL AH Workflow SS Neutrophils/100 WBC (Bld) 66.0 % Invalid Interpretation Code 50.0 - 75.0 % AH Workflow SS Platelet mean volume (Bld) [Entitic vol] 9.2 fL Invalid Interpretation Code 6.4 - 10.5 fL AH Workflow SS Platelets (Bld) [#/Vol] 120 103/mcL Invalid Interpretation Code 150 - 450 10^3/mcL AH Workflow SS RBC (Bld) [#/Vol] 4.98 106/mcL Invalid Interpretation Code 4.50 - 6.00 10^6/mcL AH Workflow SS WBC (Bld) [#/Vol] 3.8 103/mcL Invalid Interpretation Code 4.5 - 10.8 10^3/mcL AH Workflow SS .Auto Diffon 08-17-2022 Basophil, Absolute 0.0 10 3/mcL Normal 0.0-0.3 [facility] ([place]) Comment on above: Performed By: #### B MP, CBC, GFR, ADIFF, ANEU ####[address] [address] Basophils/100 WBC (Bld) 0.7 % Normal 0.0-2.5 [facility] ([place]) Comment on above: Performed By: #### B MP, CBC, GFR, ADIFF, ANEU ####[address] [address] Eosinophil, Absolute 0.1 10 3/mcL Normal 0.0-0.7 [facility] Comment on above: Performed By: #### B MP, CBC, GFR, ADIFF, ANEU ####[address] [address] Eosinophils/100 WBC (Bld) 2.0 % Normal 0.0-6.0 [facility] ([place]) Comment on above: Performed By: #### B MP, CBC, GFR, ADIFF, ANEU ####[address] [address] Lymphocyte, Absolute 0.7 10 3/mcL Low 0.9-4.3 [facility] ([place] Comment on above: Performed By: #### B MP, CBC, GFR, ADIFF, ANEU ####[address] [address] Lymphocytes/100 WBC (Bld) 16.1 % Low 20.0-40.0 [facility] ([place]) Comment on above: Performed By: #### B MP, CBC, GFR, ADIFF, ANEU ####[address] [address] Monocyte, Absolute 0.5 10 3/mcL Normal 0.1-1.4 [facility] ([place]) Comment on above: Performed By: #### B MP, CBC, GFR, ADIFF, ANEU ####[address] [address] Monocytes/100 WBC (Bld) 10.9 % Normal 2.0-13.0 [facility] ([place]) Comment on above: Performed By: #### B MP, CBC, GFR, ADIFF, ANEU ####[address] [address] Neutrophils/100 WBC (Bld) 70.3 % Normal 50.0-75.0 [facility] ([place]) Comment on above: Performed By: #### B MP, CBC, GFR, ADIFF, ANEU ####[address] [address] .GFRon 08-17-2022 GFR 28 ml/min/1.73sqm Normal [facility] ([place]) Comment on above: Result Comment: GFR Population mean for , [...] 15 mL/min/1.73 square meters Performed By: #### B MP, CBC, GFR, ADIFF, ANEU ####[address] [address] GFR Non- 23 ml/min/1.73sqm Normal [facility] ([place]) Comment on above: Result Comment: GFR Population mean for , [...] 15 mL/min/1.73 square meters Performed By: #### B MP, CBC, GFR, ADIFF, ANEU ####[address] [address] .NEUABSon 08-17-2022 Neutrophil, Absolute 3.2 10 3/mcL Normal 2.3-8.1 [facility] Comment on above: Performed By: #### B MP, CBC, GFR, ADIFF, ANEU ####[place] [address] BGon 08-17-2022 Barometric Pressure 705 mmHg Normal [facility] ([place]) Comment on above: Performed By: #### B G #### [place] [id number] Base excess Calc (Bld) [Moles/Vol] 4.4 mmol/L Normal [facility] ([place]) Comment on above: Performed By: #### Ernesto G #### [place] [address] CO2 [Moles/Vol] 32.5 mmol/L High 22.0-30.0 [facility] ([place]) Comment on above: Performed By: #### Ernesto G #### [place] [address] HCO3 (Bld) [Moles/Vol] 30.9 mmol/L High 21.0-29.0 [facility] ([place]) Comment on above: Performed By: #### Ernesto G #### [place] [id number] Oxygen (Bld) [Partial pressure] 72.3 mm[Hg] Low 74.0-108.0 [facility] ([place]) Comment on above: Performed By: #### Ernesto G #### [place] [address] Oxygen saturation in Blood 94.1 % Normal 92.0-96.0 [facility] ([place]) Comment on above: Performed By: #### Ernesto G #### [place] [id number] pCO2 53.3 mmHg High 32.0-46.0 [facility] ([place]) Comment on above: Performed By: #### Ernesto G #### [place] [id number] pH (Bld) 7.381 [pH] Normal 7.380-7.460 [facility] ([place]) Comment on above: Performed By: #### B G #### [address] [address] BMPon 08-17-2022 BUN/Creatinine Ratio 29.8 ratio High 10.0-22.0 [facility] ([place]) Comment on above: Performed By: #### B MP, CBC, GFR, ADIFF, ANEU ####[address] [address] Calcium [Mass/Vol] 9.5 mg/dL Normal 8.7-10.4 [facility] ([place]) Comment on above: Performed By: #### B MP, CBC, GFR, ADIFF, ANEU ####[address] [address] Chloride [Moles/Vol] 97 mmol/L Low 98-110 [facility] ([place]) Comment on above: Performed By: #### B MP, CBC, GFR, ADIFF, ANEU ####[address] [address] CO2 [Moles/Vol] 32 mmol/L Normal 22-32 [facility] ([place]) Comment on above: Performed By: #### B MP, CBC, GFR, ADIFF, ANEU ####[address] [address] Creatinine [Mass/Vol] 2.72 mg/dL High 0.60-1.40 [facility] ([place]) Comment on above: Performed By: #### B MP, CBC, GFR, ADIFF, ANEU ####[address] [address] Electrolyte Balance 7.0 mEq/L Normal 4.0-15.0 [facility] ([place]) Comment on above: Performed By: #### B MP, CBC, GFR, ADIFF, ANEU ####[address] [address] Glucose [Mass/Vol] 141 mg/dL High 82-115 [facility] ([place]) Comment on above: Performed By: #### B MP, CBC, GFR, ADIFF, ANEU ####[place] [address] Potassium [Moles/Vol] 4.1 mmol/L Normal 3.5-5.0 [facility] ([place]) Comment on above: Performed By: #### B MP, CBC, GFR, ADIFF, ANEU ####[place] [address] Sodium [Moles/Vol] 136 mmol/L Normal 136-145 [facility] ([place]) Comment on above: Performed By: #### B MP, CBC, GFR, ADIFF, ANEU ####[place] [address] Urea nitrogen [Mass/Vol] 81.0 mg/dL High 8.0-22.0 [facility] ([place]) Comment on above: Performed By: #### B MP, CBC, GFR, ADIFF, ANEU ####[place] [address] CBCon 08-17-2022 Erythrocyte distribution width (RBC) [Ratio] 17.7 % High 11.5-15.5 [facility] ([place]) Comment on above: Performed By: #### B MP, CBC, GFR, ADIFF, ANEU ####[place] [address] Hematocrit (Bld) [Volume fraction] 45.1 % Normal 40.0-52.0 [facility] ([place]) Comment on above: Performed By: #### B MP, CBC, GFR, ADIFF, ANEU ####[place] [address] Hgb 14.1 G/dL Normal 13.0-17.5 [facility] ([place]) Comment on above: Performed By: #### B MP, CBC, GFR, ADIFF, ANEU ####[place] [address] MCH (RBC) [Entitic mass] 28.0 pg Normal 27.0-33.0 [facility] ([place]) Comment on above: Performed By: #### B MP, CBC, GFR, ADIFF, ANEU ####[place] [address] MCHC 31.3 G/dL Low 32.0-36.0 [facility] ([place]) Comment on above: Performed By: #### B MP, CBC, GFR, ADIFF, ANEU ####[place] [address] MCV (RBC) [Entitic vol] 89.6 fL Normal 81.0-100.0 [facility] ([place]) Comment on above: Performed By: #### B MP, CBC, GFR, ADIFF, ANEU ####[place] [address] Platelet 128 10 3/mcL Low 150-450 [facility] ([place]) Comment on above: Performed By: #### B MP, CBC, GFR, ADIFF, ANEU ####[place] [address] Platelet mean volume (Bld) [Entitic vol] 8.7 fL Normal 6.4-10.5 [facility] ([place]) Comment on above: Performed By: #### B MP, CBC, GFR, ADIFF, ANEU ####[place] [address] RBC 5.03 10 6/mcL Normal 4.50-6.00 [facility] ([place]) Comment on above: Performed By: #### B MP, CBC, GFR, ADIFF, ANEU ####[place] [address] WBC 4.6 10 3/mcL Normal 4.5-10.8 [facility] ([place]) Comment on above: Performed By: #### B MP, CBC, GFR, ADIFF, ANEU ####[place] [address] HBSABon 08-17-2022 Hep B Surf Ab 4.6 mIU/mL Low >=10.0 [facility] ([place]) Comment on above: Result Comment: 0 to < 10.0 mIU/mL Nonreactive Patient is considered not to have protective immunity to HBV infection >/= 10.0 mIU/mL Reactive Patient is considered to have protective immunity to HBV infection. This assay is traceable to the World Health Organization (WHO) Hepatitis B Immunoglobulin 1st International Reference Preparation (1976). The accepted criteria for immunity to HBV is anti-HBs activity >/= 10.0 mIU/mL, as defined by the WHO International Reference Preparation. Performed By: #### A HBCOT, HBSAB ####[place] [id number] [place] [address] LABORATORYOrdered By: SYSTEM SYSTEM on 08-17-2022 HBV surface Ab Qn (S) 4.6 mIU/mL Invalid Interpretation Code >=10.0mIU/m L AH ADM SS Basophils (Bld) [#/Vol] 0.0 103/mcL Invalid Interpretation Code 0.0 - 0.3 10^3/mcL AH Workflow SS Basophils/100 WBC (Bld) 0.7 % Invalid Interpretation Code 0.0 - 2.5 % AH Workflow SS Calcium [Mass/Vol] 9.5 mg/dL Invalid Interpretation Code 8.7 - 10.4 mg/dL AH ADM SS Chloride [Moles/Vol] 97 mmol/L Invalid Interpretation Code 98 - 110 mEq/L AH ADM SS CO2 [Moles/Vol] 32 mmol/L Invalid Interpretation Code 22 - 32 mEq/L AH ADM SS Creatinine [Mass/Vol] 2.72 mg/dL Invalid Interpretation Code 0.60 - 1.40 mg/dL AH ADM SS Electrolyte Balance 7.0 mEq/L Invalid Interpretation Code 4.0 - 15.0 mEq/L AH ADM SS Eosinophils (Bld) [#/Vol] 0.1 103/mcL Invalid Interpretation Code 0.0 - 0.7 10^3/mcL AH Workflow SS Eosinophils/100 WBC (Bld) 2.0 % Invalid Interpretation Code 0.0 - 6.0 % AH Workflow SS Erythrocyte distribution width (RBC) [Ratio] 17.7 % Invalid Interpretation Code 11.5 - 15.5 % AH Workflow SS GFR/1.73 sq M.predicted among blacks MDRD (S/P/Bld) [Vol rate/Area] 28 ml/min/1.73sqm Invalid Interpretation Code AH ADM SS GFR/1.73 sq M.predicted among non-blacks MDRD (S/P/Bld) [Vol rate/Area] 23 ml/min/1.73sqm Invalid Interpretation Code AH ADM SS Glucose [Mass/Vol] 141 mg/dL Invalid Interpretation Code 82 - 115 mg/dL ADM SS Hematocrit (Bld) [Volume fraction] 45.1 % Invalid Interpretation Code 40.0 - 52.0 % AH Workflow SS Hemoglobin (Bld) [Mass/Vol] 14.1 G/dL Invalid Interpretation Code 13.0 - 17.5 G/dL AH Workflow SS Lymphocytes (Bld) [#/Vol] 0.7 103/mcL Invalid Interpretation Code 0.9 - 4.3 10^3/mcL AH Workflow SS Lymphocytes/100 WBC (Bld) 16.1 % Invalid Interpretation Code 20.0 - 40.0 % AH Workflow SS MCH (RBC) [Entitic mass] 28.0 pg Invalid Interpretation Code 27.0 - 33.0 pg AH Workflow SS MCHC 31.3 G/dL Invalid Interpretation Code 32.0 - 36.0 G/dL Workflow SS MCV (RBC) [Entitic vol] 89.6 fL Invalid Interpretation Code 81.0 - 100.0 fL AH Workflow SS Monocytes (Bld) [#/Vol] 0.5 103/mcL Invalid Interpretation Code 0.1 - 1.4 10^3/mcL AH Workflow SS Monocytes/100 WBC (Bld) 10.9 % Invalid Interpretation Code 2.0 - 13.0 % AH Workflow SS Neutrophils (Bld) [#/Vol] 3.2 103/mcL Invalid Interpretation Code 2.3 - 8.1 10^3/mcL AH Workflow SS Neutrophils/100 WBC (Bld) 70.3 % Invalid Interpretation Code 50.0 - 75.0 % AH Workflow SS Platelet mean volume (Bld) [Entitic vol] 8.7 fL Invalid Interpretation Code 6.4 - 10.5 fL AH Workflow SS Platelets (Bld) [#/Vol] 128 103/mcL Invalid Interpretation Code 150 - 450 10^3/mcL AH Workflow SS Potassium [Moles/Vol] 4.1 mmol/L Invalid Interpretation Code 3.5 - 5.0 mEq/L ADM SS RBC (Bld) [#/Vol] 5.03 106/mcL Invalid Interpretation Code 4.50 - 6.00 10^6/mcL AH Workflow SS Sodium [Moles/Vol] 136 mmol/L Invalid Interpretation Code 136 - 145 mEq/L ADM SS Urea nitrogen [Mass/Vol] 81.0 mg/dL Invalid Interpretation Code 8.0 - 22.0 mg/dL ADM SS Urea nitrogen/Creatinine [Mass ratio] 29.8 ratio Invalid Interpretation Code 10.0 - 22.0 ratio AH ADM SS WBC (Bld) [#/Vol] 4.6 103/mcL Invalid Interpretation Code 4.5 - 10.8 10^3/mcL AH Workflow SS LABORATORYOrdered By: KANWAL MARY CONTRIBUTOR_SYSTEM on 08-17-2022 Hep B Core Ab Negative Invalid Interpretation Code Negative AH Sendouts SS Comment on above: Result Comment: No e vidence of current or past infection with Hepatitis B virus. Should recent infection be suspected, repeat testing may be considered 3-4 weeks after this draw. Performed By: [facility] [employer] [address] [place] [address] Bit Bender: Lillian Jones III#: [id number] LABORATORYOrdered By: Sangeeta mukherjee on 08-17-2022 Barometric Pressure 705 mm[Hg] Invalid Interpretation Code Auto Chem SS Base excess Calc (Bld) [Moles/Vol] 4.4 mmol/L Invalid Interpretation Code Auto Chem SS CO2 (Bld) [Partial pressure] 53.3 mm[Hg] Invalid Interpretation Code 32.0 - 46.0 mm Hg Auto Chem SS CO2 [Moles/Vol] 32.5 mmol/L Invalid Interpretation Code 22.0 - 30.0 mmol/L AH Auto Chem SS HCO3 (Bld) [Moles/Vol] 30.9 mmol/L Invalid Interpretation Code 21.0 - 29.0 mmol/L AH Auto Chem SS Oxygen (Bld) [Partial pressure] 72.3 mm[Hg] Invalid Interpretation Code 74.0 - 108.0 mm Hg AH Auto Chem SS pH (Bld) 7.381 [pH] Invalid Interpretation Code 7.380 - 7.460 Auto Chem SS .Auto Diffon 08-16-2022 Basophil, Absolute 0.0 10 3/mcL Normal 0.0-0.3 [facility] ([place]) Comment on above: Performed By: #### A DIFF, CBC, MG, BMP, ANEU, GFR ####[address] [address] Basophils/100 WBC (Bld) 0.6 % Normal 0.0-2.5 [facility] ([place]) Comment on above: Performed By: #### A DIFF, CBC, MG, BMP, ANEU, GFR ####[address] [address] Eosinophil, Absolute 0.1 10 3/mcL Normal 0.0-0.7 [facility] ([place] Comment on above: Performed By: #### A DIFF, CBC, MG, BMP, ANEU, GFR ####[address] [address] Eosinophils/100 WBC (Bld) 2.7 % Normal 0.0-6.0 [facility] ([place]) Comment on above: Performed By: #### A DIFF, CBC, MG, BMP, ANEU, GFR ####[address] [address] Lymphocyte, Absolute 0.8 10 3/mcL Low 0.9-4.3 [facility] ([place]) Comment on above: Performed By: #### A DIFF, CBC, MG, BMP, ANEU, GFR ####[address] [address] Lymphocytes/100 WBC (Bld) 19.5 % Low 20.0-40.0 [facility] ([place]) Comment on above: Performed By: #### A DIFF, CBC, MG, BMP, ANEU, GFR ####[address] [address] Monocyte, Absolute 0.5 10 3/mcL Normal 0.1-1.4 [facility] ([place]) Comment on above: Performed By: #### A DIFF, CBC, MG, BMP, ANEU, GFR ####[address] [address] Monocytes/100 WBC (Bld) 11.8 % Normal 2.0-13.0 [facility] ([place]) Comment on above: Performed By: #### A DIFF, CBC, MG, BMP, ANEU, GFR ####[address] [address] Neutrophils/100 WBC (Bld) 65.4 % Normal 50.0-75.0 [facility] ([place]) Comment on above: Performed By: #### A DIFF, CBC, MG, BMP, ANEU, GFR ####[address] [address] .GFRon 08-16-2022 GFR Non- 30 ml/min/1.73sqm Normal [facility] ([place]) Comment on above: Result Comment: GFR Population mean for , [...] 15 mL/min/1.73 square meters Performed By: #### A DIFF, CBC, MG, BMP, ANEU, GFR ####[place] [address] GFR 37 ml/min/1.73sqm Normal [facility] ([place]) Comment on above: Result Comment: GFR Population mean for , [...] 15 mL/min/1.73 square meters Performed By: #### A DIFF, CBC, MG, BMP, ANEU, GFR ####[address] [address] .NEUABSon 08-16-2022 Neutrophil, Absolute 2.5 10 3/mcL Normal 2.3-8.1 [facility] ([place] Comment on above: Performed By: #### A DIFF, CBC, MG, BMP, ANEU, GFR ####[address] [address] BMPon 08-16-2022 BUN/Creatinine Ratio 46.8 ratio High 10.0-22.0 [facility] ([place]) Comment on above: Performed By: #### A DIFF, CBC, MG, BMP, ANEU, GFR ####[place] [address] Calcium [Mass/Vol] 9.2 mg/dL Normal 8.7-10.4 [facility] ([place]) Comment on above: Performed By: #### A DIFF, CBC, MG, BMP, ANEU, GFR ####[place] [address] Chloride [Moles/Vol] 95 mmol/L Low 98-110 [facility] ([place]) Comment on above: Performed By: #### A DIFF, CBC, MG, BMP, ANEU, GFR ####[place] [address] CO2 [Moles/Vol] 36 mmol/L High 22-32 [facility] ([place]) Comment on above: Performed By: #### A DIFF, CBC, MG, BMP, ANEU, GFR ####[place] [address] Creatinine [Mass/Vol] 2.18 mg/dL High 0.60-1.40 [facility] ([place]) Comment on above: Performed By: #### A DIFF, CBC, MG, BMP, ANEU, GFR ####[place] [address] Electrolyte Balance 9.0 mEq/L Normal 4.0-15.0 [facility] ([place]) Comment on above: Performed By: #### A DIFF, CBC, MG, BMP, ANEU, GFR ####[place] [address] Glucose [Mass/Vol] 124 mg/dL High 82-115 [facility] ([place]) Comment on above: Performed By: #### A DIFF, CBC, MG, BMP, ANEU, GFR ####[place] [address] Potassium [Moles/Vol] 3.9 mmol/L Normal 3.5-5.0 [facility] ([place]) Comment on above: Performed By: #### A DIFF, CBC, MG, BMP, ANEU, GFR ####[place] [address] Sodium [Moles/Vol] 140 mmol/L Normal 136-145 [facility] ([place]) Comment on above: Performed By: #### A DIFF, CBC, MG, BMP, ANEU, GFR ####[place] [address] Urea nitrogen [Mass/Vol] 102.0 mg/dL Critically abnormal 8.0-22.0 [facility] ([place]) Comment on above: Performed By: #### A DIFF, CBC, MG, BMP, ANEU, GFR ####[place] [address] CBCon 08-16-2022 Erythrocyte distribution width (RBC) [Ratio] 17.5 % High 11.5-15.5 [facility] ([place]) Comment on above: Performed By: #### A DIFF, CBC, MG, BMP, ANEU, GFR ####[place] [address] Hematocrit (Bld) [Volume fraction] 45.2 % Normal 40.0-52.0 [facility] ([place]) Comment on above: Performed By: #### A DIFF, CBC, MG, BMP, ANEU, GFR ####[place] [address] Hgb 14.2 G/dL Normal 13.0-17.5 [facility] ([place]) Comment on above: Performed By: #### A DIFF, CBC, MG, BMP, ANEU, GFR ####[place] [address] MCH (RBC) [Entitic mass] 28.1 pg Normal 27.0-33.0 [facility] ([place]) Comment on above: Performed By: #### A DIFF, CBC, MG, BMP, ANEU, GFR ####[place] [address] MCHC 31.3 G/dL Low 32.0-36.0 [facility] ([place]) Comment on above: Performed By: #### A DIFF, CBC, MG, BMP, ANEU, GFR ####[place] [address] MCV (RBC) [Entitic vol] 89.8 fL Normal 81.0-100.0 [facility] ([place]) Comment on above: Performed By: #### A DIFF, CBC, MG, BMP, ANEU, GFR ####[place] [address] Platelet 141 10 3/mcL Low 150-450 [facility] ([place]) Comment on above: Performed By: #### A DIFF, CBC, MG, BMP, ANEU, GFR ####[place] [address] Platelet mean volume (Bld) [Entitic vol] 8.7 fL Normal 6.4-10.5 [facility] ([place]) Comment on above: Performed By: #### A DIFF, CBC, MG, BMP, ANEU, GFR ####[place] [address] RBC 5.03 10 6/mcL Normal 4.50-6.00 [facility] ([place]) Comment on above: Performed By: #### A DIFF, CBC, MG, BMP, ANEU, GFR ####[place] [address] WBC 3.8 10 3/mcL Low 4.5-10.8 [facility] ([place]) Comment on above: Performed By: #### A DIFF, CBC, MG, BMP, ANEU, GFR ####[place] [address] LABORATORYOrdered By: SYSTEM SYSTEM on 08-16-2022 Magnesium [Mass/Vol] 2.3 mg/dL Invalid Interpretation Code 1.6 - 2.4 mg/dL ADM SS MGon 08-16-2022 Magnesium [Mass/Vol] 2.3 mg/dL Normal 1.6-2.4 [facility] ([place]) Comment on above: Performed By: #### A DIFF, CBC, MG, BMP, ANEU, GFR ####[address] [address] .Auto Diffon 08-15-2022 Basophil, Absolute 0.0 10 3/mcL Normal 0.0-0.3 [facility] ([place]) Comment on above: Performed By: #### M G, BMP, GFR #### [address] [address] Basophils/100 WBC (Bld) 0.5 % Normal 0.0-2.5 [facility] ([place]) Comment on above: Performed By: #### M G, BMP, GFR #### [address] [address] Eosinophil, Absolute 0.1 10 3/mcL Normal 0.0-0.7 [facility] ([place] Comment on above: Performed By: #### M G, BMP, GFR #### [address] [address] Eosinophils/100 WBC (Bld) 2.4 % Normal 0.0-6.0 [facility] ([place]) Comment on above: Performed By: #### M G, BMP, GFR #### [address] [address] Lymphocyte, Absolute 0.7 10 3/mcL Low 0.9-4.3 [facility] ([place]) Comment on above: Performed By: #### M G, BMP, GFR #### [address] [address] Lymphocytes/100 WBC (Bld) 17.1 % Low 20.0-40.0 [facility] ([place]) Comment on above: Performed By: #### M G, BMP, GFR #### [address] [address] Monocyte, Absolute 0.4 10 3/mcL Normal 0.1-1.4 [facility] ([place]) Comment on above: Performed By: #### M G, BMP, GFR #### [address] [address] Monocytes/100 WBC (Bld) 10.2 % Normal 2.0-13.0 [facility] ([place]) Comment on above: Performed By: #### Jacquelin G, BMP, GFR #### [address] [address] Neutrophils/100 WBC (Bld) 69.8 % Normal 50.0-75.0 [facility] ([place]) Comment on above: Performed By: #### Jacquelin G, BMP, GFR #### [address] [address] .GFRon 08-15-2022 GFR Non- 36 ml/min/1.73sqm Normal [facility] ([place]) Comment on above: Result Comment: GFR Population mean for , [...] 15 mL/min/1.73 square meters Performed By: #### Jacquelin G, BMP, GFR #### [address] [address] GFR 44 ml/min/1.73sqm Normal [facility] ([place]) Comment on above: Result Comment: GFR Population mean for , [...] 15 mL/min/1.73 square meters Performed By: #### Jacquelin Pena BMP, GFR #### [address] [address] .NEUABSon 08-15-2022 Neutrophil, Absolute 2.8 10 3/mcL Normal 2.3-8.1 [facility] ([place]) Comment on above: Performed By: #### Jacquelin Pena, BMP, GFR #### [address] [address] BMPon 08-15-2022 BUN/Creatinine Ratio 36.6 ratio High 10.0-22.0 [facility] ([place]) Comment on above: Performed By: #### Jacquelin Pena BMP, GFR #### [place] [id number] Calcium [Mass/Vol] 9.3 mg/dL Normal 8.7-10.4 [facility] ([place]) Comment on above: Performed By: #### Jacquelin Pena BMP, GFR #### [place] [id number] Chloride [Moles/Vol] 95 mmol/L Low 98-110 [facility] ([place]) Comment on above: Performed By: #### Jacquelin Pena BMP, GFR #### [place] [address] CO2 [Moles/Vol] 36 mmol/L High 22-32 [facility] ([place]) Comment on above: Performed By: #### Jacquelin Pena, BMP, GFR #### [place] [address] Creatinine [Mass/Vol] 1.86 mg/dL High 0.60-1.40 [facility] ([place]) Comment on above: Performed By: #### Jacquelin Pnea, BMP, GFR #### [place] [id number] Electrolyte Balance 7.0 mEq/L Normal 4.0-15.0 [facility] ([place]) Comment on above: Performed By: #### Jacquelin Pena, BMP, GFR #### [place] [id number] Glucose [Mass/Vol] 140 mg/dL High 82-115 [facility] ([place]) Comment on above: Performed By: #### Jacquelin Pena BMP, GFR #### [place] [id number] Potassium [Moles/Vol] 3.8 mmol/L Normal 3.5-5.0 [facility] ([place]) Comment on above: Performed By: #### Jacquelin Pena, BMP, GFR #### [place] [id number] Sodium [Moles/Vol] 138 mmol/L Normal 136-145 [facility] ([place]) Comment on above: Performed By: #### Jacquelin Pena, BMP, GFR #### [place] [address] Urea nitrogen [Mass/Vol] 68.0 mg/dL High 8.0-22.0 [facility] ([place]) Comment on above: Performed By: #### Jacquelin Pena BMP, GFR #### [place] [address] CBCon 08-15-2022 Erythrocyte distribution width (RBC) [Ratio] 17.4 % High 11.5-15.5 [facility] ([place]) Comment on above: Performed By: #### Jacquelin Pena BMP, GFR #### [place] [address] Hematocrit (Bld) [Volume fraction] 44.3 % Normal 40.0-52.0 [facility] ([place]) Comment on above: Performed By: #### Jacquelin Pena BMP, GFR #### [place] [address] Hgb 14.1 G/dL Normal 13.0-17.5 [facility] ([place]) Comment on above: Performed By: #### Jacquelin Pena BMP, GFR #### [place] [id number] MCH (RBC) [Entitic mass] 28.6 pg Normal 27.0-33.0 [facility] ([place]) Comment on above: Performed By: #### Jacquelin Pena, BMP, GFR #### [place] [address] MCHC 31.9 G/dL Low 32.0-36.0 [facility] ([place]) Comment on above: Performed By: #### ROSALIA Andrews, GFR #### [place] [id number] MCV (RBC) [Entitic vol] 89.7 fL Normal 81.0-100.0 [facility] ([place]) Comment on above: Performed By: #### Jacquelin Pena, BMP, GFR #### [place] [address] Platelet 149 10 3/mcL Low 150-450 [facility] ([place]) Comment on above: Performed By: #### Jacquelin Pena, BMP, GFR #### [place] [address] Platelet mean volume (Bld) [Entitic vol] 8.3 fL Normal 6.4-10.5 [facility] ([place]) Comment on above: Performed By: #### Jacquelin Pena BMP, GFR #### [place] [address] RBC 4.94 10 6/mcL Normal 4.50-6.00 [facility] ([place]) Comment on above: Performed By: #### ROSALIA Andrews, GFR #### [place] [address] WBC 4.1 10 3/mcL Low 4.5-10.8 [facility] ([place]) Comment on above: Performed By: #### Jacquelin Pena BMP, GFR #### [place] [address] LABORATORYOrdered By: SYSTEM SYSTEM on 08-15-2022 Magnesium [Mass/Vol] 2.4 mg/dL Invalid Interpretation Code 1.6 - 2.4 mg/dL ADM SS MGon 08-15-2022 Magnesium [Mass/Vol] 2.4 mg/dL Normal 1.6-2.4 [facility] ([place]) Comment on above: Performed By: #### Jacquelin Pena BMP, GFR #### [place] [address] .Auto Diffon 08-14-2022 Basophil, Absolute 0.0 10 3/mcL Normal 0.0-0.3 [facility] ([place]) Comment on above: Performed By: #### G FR, CBC, MG, BMP, ANEU, ADIFF ####[address] [address] Basophils/100 WBC (Bld) 0.8 % Normal 0.0-2.5 [facility] ([place]) Comment on above: Performed By: #### G FR, CBC, MG, BMP, ANEU, ADIFF ####[address] [address] Eosinophil, Absolute 0.1 10 3/mcL Normal 0.0-0.7 [facility] ([place]) Comment on above: Performed By: #### G FR, CBC, MG, BMP, ANEU, ADIFF ####[address] [address] Eosinophils/100 WBC (Bld) 2.4 % Normal 0.0-6.0 [facility] ([place]) Comment on above: Performed By: #### G FR, CBC, MG, BMP, ANEU, ADIFF ####[address] [address] Lymphocyte, Absolute 0.6 10 3/mcL Low 0.9-4.3 [facility] ([place]) Comment on above: Performed By: #### G FR, CBC, MG, BMP, ANEU, ADIFF ####[address] [address] Lymphocytes/100 WBC (Bld) 16.5 % Low 20.0-40.0 [facility] ([place]) Comment on above: Performed By: #### G FR, CBC, MG, BMP, ANEU, ADIFF ####[address] [address] Monocyte, Absolute 0.3 10 3/mcL Normal 0.1-1.4 [facility] ([place]) Comment on above: Performed By: #### G FR, CBC, MG, BMP, ANEU, ADIFF ####[address] [address] Monocytes/100 WBC (Bld) 9.3 % Normal 2.0-13.0 [facility] ([place]) Comment on above: Performed By: #### G FR, CBC, MG, BMP, ANEU, ADIFF ####[address] [address] Neutrophils/100 WBC (Bld) 71.0 % Normal 50.0-75.0 [facility] ([place]) Comment on above: Performed By: #### G FR, CBC, MG, BMP, ANEU, ADIFF ####[address] [address] .GFRon 08-14-2022 GFR Non- 39 ml/min/1.73sqm Normal [facility] ([place]) Comment on above: Result Comment: GFR Population mean for , [...] 15 mL/min/1.73 square meters Performed By: #### G FR, CBC, MG, BMP, ANEU, ADIFF ####[address] [address] GFR 47 ml/min/1.73sqm Normal [facility] ([place]) Comment on above: Result Comment: GFR Population mean for , [...] 15 mL/min/1.73 square meters Performed By: #### G FR, CBC, MG, BMP, ANEU, ADIFF ####[place] [address] .NEUABSon 08-14-2022 Neutrophil, Absolute 2.7 10 3/mcL Normal 2.3-8.1 [facility] ([place] Comment on above: Performed By: #### G FR, CBC, MG, BMP, ANEU, ADIFF ####[place] [address] BMPon 08-14-2022 BUN/Creatinine Ratio 34.3 ratio High 10.0-22.0 [facility] ([place]) Comment on above: Performed By: #### G FR, CBC, MG, BMP, ANEU, ADIFF ####[place] [address] Calcium [Mass/Vol] 9.3 mg/dL Normal 8.7-10.4 [facility] ([place]) Comment on above: Performed By: #### G FR, CBC, MG, BMP, ANEU, ADIFF ####[place] [address] Chloride [Moles/Vol] 98 mmol/L Normal 98-110 [facility] ([place]) Comment on above: Performed By: #### G FR, CBC, MG, BMP, ANEU, ADIFF ####[place] [address] CO2 [Moles/Vol] 36 mmol/L High 22-32 [facility] ([place]) Comment on above: Performed By: #### G FR, CBC, MG, BMP, ANEU, ADIFF ####[place] [address] Creatinine [Mass/Vol] 1.75 mg/dL High 0.60-1.40 [facility] ([place]) Comment on above: Performed By: #### G FR, CBC, MG, BMP, ANEU, ADIFF ####[place] [address] Electrolyte Balance 5.0 mEq/L Normal 4.0-15.0 [facility] ([place]) Comment on above: Performed By: #### G FR, CBC, MG, BMP, ANEU, ADIFF ####[place] [address] Glucose [Mass/Vol] 108 mg/dL Normal 82-115 [facility] ([place]) Comment on above: Performed By: #### G FR, CBC, MG, BMP, ANEU, ADIFF ####[place] [address] Potassium [Moles/Vol] 3.9 mmol/L Normal 3.5-5.0 [facility] ([place]) Comment on above: Performed By: #### G FR, CBC, MG, BMP, ANEU, ADIFF ####[place] [address] Sodium [Moles/Vol] 139 mmol/L Normal 136-145 [facility] ([place]) Comment on above: Performed By: #### G FR, CBC, MG, BMP, ANEU, ADIFF ####[place] [address] Urea nitrogen [Mass/Vol] 60.0 mg/dL High 8.0-22.0 [facility] ([place]) Comment on above: Performed By: #### G FR, CBC, MG, BMP, ANEU, ADIFF ####[place] [address] CBCon 08-14-2022 Erythrocyte distribution width (RBC) [Ratio] 17.6 % High 11.5-15.5 [facility] ([place]) Comment on above: Performed By: #### G FR, CBC, MG, BMP, ANEU, ADIFF ####[place] [address] Hematocrit (Bld) [Volume fraction] 44.7 % Normal 40.0-52.0 [facility] ([place]) Comment on above: Performed By: #### G FR, CBC, MG, BMP, ANEU, ADIFF ####[place] [address] Hgb 14.1 G/dL Normal 13.0-17.5 [facility] ([place]) Comment on above: Performed By: #### G FR, CBC, MG, BMP, ANEU, ADIFF ####[place] [address] MCH (RBC) [Entitic mass] 28.4 pg Normal 27.0-33.0 [facility] ([place]) Comment on above: Performed By: #### G FR, CBC, MG, BMP, ANEU, ADIFF ####[place] [address] MCHC 31.4 G/dL Low 32.0-36.0 [facility] ([place]) Comment on above: Performed By: #### G FR, CBC, MG, BMP, ANEU, ADIFF ####[place] [address] MCV (RBC) [Entitic vol] 90.3 fL Normal 81.0-100.0 [facility] ([place]) Comment on above: Performed By: #### G FR, CBC, MG, BMP, ANEU, ADIFF ####[place] [address] Platelet 149 10 3/mcL Low 150-450 [facility] ([place]) Comment on above: Performed By: #### G FR, CBC, MG, BMP, ANEU, ADIFF ####[place] [address] Platelet mean volume (Bld) [Entitic vol] 8.0 fL Normal 6.4-10.5 [facility] ([place]) Comment on above: Performed By: #### G FR, CBC, MG, BMP, ANEU, ADIFF ####[place] [address] RBC 4.95 10 6/mcL Normal 4.50-6.00 [facility] ([place]) Comment on above: Performed By: #### G FR, CBC, MG, BMP, ANEU, ADIFF ####[place] [address] WBC 3.7 10 3/mcL Low 4.5-10.8 [facility] ([place]) Comment on above: Performed By: #### G FR, CBC, MG, BMP, ANEU, ADIFF ####[address] [address] MGon 08-14-2022 Magnesium [Mass/Vol] 2.4 mg/dL Normal 1.6-2.4 [facility] ([place]) Comment on above: Performed By: #### G FR, CBC, MG, BMP, ANEU, ADIFF ####[place] [address] .Auto Diffon 08-13-2022 Basophil, Absolute 0.0 10 3/mcL Normal 0.0-0.3 [facility] ([place]) Comment on above: Performed By: #### A DIFF, ANEU, CBC ####[place] [address] Basophils/100 WBC (Bld) 0.7 % Normal 0.0-2.5 [facility] ([place]) Comment on above: Performed By: #### A DIFF, ANEU, CBC ####[place] [address] Eosinophil, Absolute 0.1 10 3/mcL Normal 0.0-0.7 [facility] ([place] Comment on above: Performed By: #### A DIFF, ANEU, CBC ####[place] [address] Eosinophils/100 WBC (Bld) 2.1 % Normal 0.0-6.0 [facility] ([place]) Comment on above: Performed By: #### A DIFF, ANEU, CBC ####[place] [address] Lymphocyte, Absolute 0.4 10 3/mcL Low 0.9-4.3 [facility] ([place] Comment on above: Performed By: #### A DIFF, ANEU, CBC ####[place] [address] Lymphocytes/100 WBC (Bld) 7.9 % Low 20.0-40.0 [facility] ([place]) Comment on above: Performed By: #### A DIFF, ANEU, CBC ####[address] [place], [place] [address] Monocyte, Absolute 0.3 10 3/mcL Normal 0.1-1.4 [facility] ([place]) Comment on above: Performed By: #### A DIFF, ANEU, CBC ####[address] [address] Monocytes/100 WBC (Bld) 6.4 % Normal 2.0-13.0 [facility] ([place]) Comment on above: Performed By: #### A DIFF, ANEU, CBC ####[address] [address] Neutrophils/100 WBC (Bld) 82.9 % High 50.0-75.0 [facility] ([place]) Comment on above: Performed By: #### A DIFF, ANEU, CBC ####[address] [address] .GFRon 08-13-2022 GFR 46 ml/min/1.73sqm Normal [facility] ([place]) Comment on above: Result Comment: GFR Population mean for , [...] 15 mL/min/1.73 square meters Performed By: #### M G, BMP, GFR #### [address] [address] GFR Non- 38 ml/min/1.73sqm Normal [facility] ([place]) Comment on above: Result Comment: GFR Population mean for , [...] 15 mL/min/1.73 square meters Performed By: #### M G, BMP, GFR #### [place] [address] .NEUABSon 08-13-2022 Neutrophil, Absolute 3.7 10 3/mcL Normal 2.3-8.1 [facility] ([place] Comment on above: Performed By: #### A DIFF, ANEU, CBC ####[place] [address] BMPon 08-13-2022 BUN/Creatinine Ratio 40.4 ratio High 10.0-22.0 [facility] ([place]) Comment on above: Performed By: #### Jacquelin G, BMP, GFR #### [place] [address] Calcium [Mass/Vol] 9.4 mg/dL Normal 8.7-10.4 [facility] ([place]) Comment on above: Performed By: #### Jacquelin G, BMP, GFR #### [place] [address] Chloride [Moles/Vol] 97 mmol/L Low 98-110 [facility] ([place]) Comment on above: Performed By: #### M G, BMP, GFR #### [place] [address] CO2 [Moles/Vol] 38 mmol/L High 22-32 [facility] ([place]) Comment on above: Performed By: #### M G, BMP, GFR #### [place] [address] Creatinine [Mass/Vol] 1.78 mg/dL High 0.60-1.40 [facility] ([place]) Comment on above: Performed By: #### M G, BMP, GFR #### [place] [address] Electrolyte Balance 4.0 mEq/L Normal 4.0-15.0 [facility] ([place]) Comment on above: Performed By: #### Jacquelin Pena BMP, GFR #### [address] [address] Glucose [Mass/Vol] 123 mg/dL High 82-115 [facility] ([place]) Comment on above: Performed By: #### Jacquelin Pena, BMP, GFR #### [address] [address] Potassium [Moles/Vol] 4.1 mmol/L Normal 3.5-5.0 [facility] ([place]) Comment on above: Performed By: #### Jacquelin Pena BMP, GFR #### [address] [address] Sodium [Moles/Vol] 139 mmol/L Normal 136-145 [facility] ([place]) Comment on above: Performed By: #### Jacquelin Pena BMP, GFR #### [address] [address] Urea nitrogen [Mass/Vol] 72.0 mg/dL High 8.0-22.0 [facility] ([place]) Comment on above: Performed By: #### Jacquelin Pena BMP, GFR #### [address] [address] CBCon 08-13-2022 Erythrocyte distribution width (RBC) [Ratio] 17.2 % High 11.5-15.5 [facility] ([place]) Comment on above: Performed By: #### A DIFF, ANEU, CBC ####[address] [address] Hematocrit (Bld) [Volume fraction] 46.0 % Normal 40.0-52.0 [facility] ([place]) Comment on above: Performed By: #### A DIFF, ANEU, CBC ####[address] [address] Hgb 14.4 G/dL Normal 13.0-17.5 [facility] ([place]) Comment on above: Performed By: #### A DIFF, ANEU, CBC ####[place] [address] MCH (RBC) [Entitic mass] 28.3 pg Normal 27.0-33.0 [facility] ([place]) Comment on above: Performed By: #### A TEQUILA HOLMAN, CBC ####[place] [address] MCHC 31.3 G/dL Low 32.0-36.0 [facility] ([place]) Comment on above: Performed By: #### A TEQUILA HOLMAN, CBC ####[place] [address] MCV (RBC) [Entitic vol] 90.5 fL Normal 81.0-100.0 [facility] ([place]) Comment on above: Performed By: #### A TEQUILA HOLMAN, CBC ####[place] [address] Platelet 174 10 3/mcL Normal 150-450 [facility] ([place]) Comment on above: Performed By: #### A TEQUILA HOLMAN, CBC ####[place] [address] Platelet mean volume (Bld) [Entitic vol] 8.2 fL Normal 6.4-10.5 [facility] ([place]) Comment on above: Performed By: #### A TEQUILA HOLMAN, CBC ####[place] [address] RBC 5.08 10 6/mcL Normal 4.50-6.00 [facility] ([place]) Comment on above: Performed By: #### A TEQUILA HOLMAN, CBC ####[place] [address] WBC 4.5 10 3/mcL Normal 4.5-10.8 [facility] ([place]) Comment on above: Performed By: #### A DIFF ANEU, CBC ####[place] [address] HEPACon 08-13-2022 Hep A IgM Ab Non-Reactive Normal Non-Reactiv e [facility] ([place]) Comment on above: Performed By: #### M G, BMP, GFR #### [place] [address] Hep A IgM Ab Int [facility] ([place]) Comment on above: Result Comment: No s erological evidence of a current Hepatitis A infection. See Interp Performed By: #### ROSALIA Andrews, GFR #### [place] [address] Hep B Core IgM Ab Non-Reactive Normal Non-Reacti v e [facility] ([place]) Comment on above: Performed By: #### ROSALIA Andrews, GFR #### [place] [address] Hep B Core IgM Ab Int [facility] ([place]) Comment on above: Result Comment: Samp les with a value < 0.80 Index are considered nonreactive (negative) for IgM antibodies to hepatitis B core antigen. See Interp Performed By: #### ROSALIA Andrews, GFR #### [place] [address] Hep B Surf Ag Non-Reactive Normal Non-Reactiv [facility] ([place]) Comment on above: Performed By: #### ROSALIA Andrews, GFR #### [place] [address] Hep C Ab Non-Reactive Normal Non-Reactiv [facility] ([place]) Comment on above: Performed By: #### ROSALIA Andrews, GFR #### [place] [address] Hep C Ab Int [facility] ([place]) Comment on above: Result Comment: Nonr eactive: Samples with a value < 0.80 are considered nonreactive (negative) for antibodies to HCV. A negative test result does not exclude the possibility of exposure to or infection with HCV. HCV antibodies may be undetectable in some stages of the infection and in some clinical conditions. See Interp Performed By: #### ROSALIA Andrews, GFR #### [place] [address] LABORATORYOrdered By: Jeanette Easton on 08-13-2022 HAV IgM IA Ql Non-Reactive (08/13/22 4:07 AM) Invalid Interpretation Code Non-Reactiv e AH ADM SS HAV IgM IA Ql No serological evide nce of a current Hepatitis A infection. Invalid Interpretation Code Chemistry S HBV core IgM IA Ql Non-Reactive (08/13/22 4:07 AM) Invalid Interpretation Code Non-Reactiv e AH ADM SS HBV core IgM IA Ql Samples with a value < 0.80 Index are considered nonreactive (negative) for IgM antibodies to hepatitis B core antigen. Invalid Interpretation Code AH Chemistry S HBV surface Ag IA Ql Non-Reactive (08/13/22 4:07 AM) Invalid Interpretation Code Non-Reactiv e AH ADM SS HCV Ab IA Ql Non-Reactive (08/13/22 4:07 AM) Invalid Interpretation Code Non-Reactiv e AH ADM SS HCV Ab IA Ql Nonreactive: Samples with a value < 0.80 are considered nonreactive (negative) for antibodies to HCV.A negative test result does not exclude the possibility of exposure to or infection with HCV. HCV antibodies may be undetectable in some stages of the infection and in some clinical conditions. Invalid Interpretation Code Chemistry S MGon 08-13-2022 Magnesium [Mass/Vol] 2.7 mg/dL High 1.6-2.4 [facility] ([place]) Comment on above: Performed By: #### M Jean, BMP, GFR #### [address] [address] .GFRon 08-12-2022 GFR 34 ml/min/1.73sqm Normal [facility] ([place]) Comment on above: Result Comment: GFR Population mean for , [...] 15 mL/min/1.73 square meters Performed By: #### M G, BMP, GFR #### [address] [address] GFR Non- 28 ml/min/1.73sqm Normal [facility] ([place]) Comment on above: Result Comment: GFR Population mean for , [...] 15 mL/min/1.73 square meters Performed By: #### ROSALIA Andrews, GFR #### [address] [address] BGon 08-12-2022 Barometric Pressure 722 mmHg Normal [facility] ([place]) Comment on above: Performed By: #### ROSALIA Andrews, GFR #### [address] [address] Base excess Calc (Bld) [Moles/Vol] 7.5 mmol/L Normal [facility] ([place]) Comment on above: Performed By: #### ROSALIA Andrews, GFR #### [address] [address] CO2 [Moles/Vol] 38.3 mmol/L High 22.0-30.0 [facility] ([place]) Comment on above: Performed By: #### ROSALIA Andrews, GFR #### [address] [address] HCO3 (Bld) [Moles/Vol] 36.1 mmol/L High 21.0-29.0 [facility] ([place]) Comment on above: Performed By: #### ROSALIA Andrews, GFR #### [address] [address] Oxygen (Bld) [Partial pressure] 73.6 mm[Hg] Low 74.0-108.0 [facility] ([place]) Comment on above: Performed By: #### M G, BMP, GFR #### [address] [address] Oxygen saturation in Blood 93.6 % Normal 92.0-96.0 [facility] ([place]) Comment on above: Performed By: #### Jacquelin Pena BMP, GFR #### [address] [address] pCO2 69.0 mmHg Critically abnormal 32.0-46.0 [facility] ([place]) Comment on above: Performed By: #### Jacquelin Pena BMP, GFR #### [address] [address] pH (Bld) 7.337 [pH] Low 7.380-7.460 [facility] ([place]) Comment on above: Performed By: #### Jacquelin Pena BMP, GFR #### [address] [address] BMPon 08-12-2022 BUN/Creatinine Ratio 38.7 ratio High 10.0-22.0 [facility] ([place]) Comment on above: Performed By: #### Jacquelin Pena BMP, GFR #### [address] [address] Calcium [Mass/Vol] 8.8 mg/dL Normal 8.7-10.4 [facility] ([place]) Comment on above: Performed By: #### Jacquelin Pena BMP, GFR #### [address] [address] Chloride [Moles/Vol] 99 mmol/L Normal 98-110 [facility] ([place]) Comment on above: Performed By: #### Jacquelin Pena BMP, GFR #### [address] [address] CO2 [Moles/Vol] 36 mmol/L High 22-32 [facility] ([place]) Comment on above: Performed By: #### Jacquelin Pena BMP, GFR #### [address] [address] Creatinine [Mass/Vol] 2.35 mg/dL High 0.60-1.40 [facility] ([place]) Comment on above: Performed By: #### Jacquelin Pena, BMP, GFR #### [address] [address] Electrolyte Balance 5.0 mEq/L Normal 4.0-15.0 [facility] ([place]) Comment on above: Performed By: #### Jacquelin Pena, BMP, GFR #### [address] [address] Glucose [Mass/Vol] 100 mg/dL Normal 82-115 [facility] ([place]) Comment on above: Performed By: #### Jacquelin ePna, BMP, GFR #### [address] [address] Potassium [Moles/Vol] 4.7 mmol/L Normal 3.5-5.0 [facility] ([place]) Comment on above: Performed By: #### Jacquelin Pena, BMP, GFR #### [address] [address] Sodium [Moles/Vol] 140 mmol/L Normal 136-145 [facility] ([place]) Comment on above: Performed By: #### Jacquelin Pean, BMP, GFR #### [address] [address] Urea nitrogen [Mass/Vol] 91.0 mg/dL High 8.0-22.0 [facility] ([place]) Comment on above: Performed By: #### Jacquelin Pena, BMP, GFR #### [address] [address] LABORATORYOrdered By: Sangeeta mukherjee on 08-12-2022 Barometric Pressure 722 mm[Hg] Invalid Interpretation Code AH Auto Chem SS Base excess Calc (Bld) [Moles/Vol] 7.5 mmol/L Invalid Interpretation Code Auto Chem SS CO2 (Bld) [Partial pressure] 69.0 mm[Hg] Invalid Interpretation Code 32.0 - 46.0 mm Hg AH Auto Chem SS Comment on above: Result Comment: read back by Chico Murdock RN CO2 [Moles/Vol] 38.3 mmol/L Invalid Interpretation Code 22.0 - 30.0 mmol/L Auto Chem SS HCO3 (Bld) [Moles/Vol] 36.1 mmol/L Invalid Interpretation Code 21.0 - 29.0 mmol/L AH Auto Chem SS Oxygen (Bld) [Partial pressure] 73.6 mm[Hg] Invalid Interpretation Code 74.0 - 108.0 mm Hg AH Auto Chem SS pH (Bld) 7.337 [pH] Invalid Interpretation Code 7.380 - 7.460 AH Auto Chem SS MGon 08-12-2022 Magnesium [Mass/Vol] 2.9 mg/dL High 1.6-2.4 [facility] ([place]) Comment on above: Performed By: #### ROSALIA Andrews, GFR #### [address] [address] US ABDOMEN FOR ASCITESon US ABDOMEN FOR ASCITES ORIGINAL HISTORY: Ascites COMPARISON: No FINDINGS: No ascites is seen. IMPRESSION: Negative. Interpreted by: Shamika Gonsales MD Preliminary Report By: Shamika Gonsales MD Electronically signed By Shamika Gonsales MD Dictated Date: 08/12/2022 1:59:23 PM Prelim Date: 08/12/2022 1:59:48 PM Sign Date: 08/12/2022 1:59:48 PM Ordering Provider: ROLAND Moreno [facility] ([place]) .Auto Diffon 08-11-2022 Basophil, Absolute 0.0 10 3/mcL Normal 0.0-0.3 [facility] ([place]) Comment on above: Performed By: #### ROSALIA Andrews, GFR #### [address] [address] Basophils/100 WBC (Bld) 0.3 % Normal 0.0-2.5 [facility] ([place]) Comment on above: Performed By: #### ROSALIA Andrews, GFR #### [address] [address] Eosinophil, Absolute 0.0 10 3/mcL Normal 0.0-0.7 [facility] ([place]) Comment on above: Performed By: #### ROSALIA Andrews, GFR #### [address] [address] Eosinophils/100 WBC (Bld) 0.9 % Normal 0.0-6.0 [facility] ([place]) Comment on above: Performed By: #### ROSALIA Andrews, GFR #### [address] [address] Lymphocyte, Absolute 0.3 10 3/mcL Low 0.9-4.3 [facility] ([place] Comment on above: Performed By: #### Jacquelin Pena BMP, GFR #### [address] [address] Lymphocytes/100 WBC (Bld) 5.9 % Low 20.0-40.0 [facility] ([place]) Comment on above: Performed By: #### Jacquelin Pena BMP, GFR #### [address] [address] Monocyte, Absolute 0.3 10 3/mcL Normal 0.1-1.4 [facility] ([place]) Comment on above: Performed By: #### ROSALIA Andrews, GFR #### [address] [address] Monocytes/100 WBC (Bld) 6.7 % Normal 2.0-13.0 [facility] ([place]) Comment on above: Performed By: #### Jacquelin Pena BMP, GFR #### [address] [address] Neutrophils/100 WBC (Bld) 86.2 % High 50.0-75.0 [facility] ([place]) Comment on above: Performed By: #### ROSALIA Andrews, GFR #### [address] [address] .GFRon 08-11-2022 GFR Non- 23 ml/min/1.73sqm Normal [facility] ([place]) Comment on above: Result Comment: GFR Population mean for , [...] 15 mL/min/1.73 square meters Performed By: #### Jacquelin Pena BMP, GFR #### [address] [address] GFR 27 ml/min/1.73sqm Normal [facility] ([place]) Comment on above: Result Comment: GFR Population mean for , [...] 15 mL/min/1.73 square meters Performed By: #### Jacquelin Pena BMP, GFR #### [address] [address] .NEUABSon 08-11-2022 Neutrophil, Absolute 4.4 10 3/mcL Normal 2.3-8.1 [facility] ([place]) Comment on above: Performed By: #### Jacquelin Pena BMP, GFR #### [address] [address] BMPon 08-11-2022 BUN/Creatinine Ratio 31.8 ratio High 10.0-22.0 [facility] ([place]) Comment on above: Performed By: #### Jacquelin Pena BMP, GFR #### [address] [address] Calcium [Mass/Vol] 8.8 mg/dL Normal 8.7-10.4 [facility] ([place]) Comment on above: Performed By: #### Jacquelin Pena BMP, GFR #### [address] [address] Chloride [Moles/Vol] 98 mmol/L Normal 98-110 [facility] ([place]) Comment on above: Performed By: #### Jacquelin Pena BMP, GFR #### [address] [address] CO2 [Moles/Vol] 35 mmol/L High 22-32 [facility] ([place]) Comment on above: Performed By: #### ROSALIA Andrews, GFR #### [address] [address] Creatinine [Mass/Vol] 2.80 mg/dL High 0.60-1.40 [facility] ([place]) Comment on above: Performed By: #### ROSALIA Andrews, GFR #### [address] [address] Electrolyte Balance 5.0 mEq/L Normal 4.0-15.0 [facility] ([place]) Comment on above: Performed By: #### ROSALIA Andrews, GFR #### [address] [address] Glucose [Mass/Vol] 111 mg/dL Normal 82-115 [facility] ([place]) Comment on above: Performed By: #### ROSALIA Andrews, GFR #### [address] [address] Potassium [Moles/Vol] 5.1 mmol/L High 3.5-5.0 [facility] ([place]) Comment on above: Performed By: #### ROSALIA Andrews, GFR #### [address] [address] Sodium [Moles/Vol] 138 mmol/L Normal 136-145 [facility] ([place]) Comment on above: Performed By: #### ROSALIA Andrews, GFR #### [address] [address] Urea nitrogen [Mass/Vol] 89.0 mg/dL High 8.0-22.0 [facility] ([place]) Comment on above: Performed By: #### ROSALIA Andrews, GFR #### [address] [address] CBCon 08-11-2022 Erythrocyte distribution width (RBC) [Ratio] 17.2 % High 11.5-15.5 [facility] ([place]) Comment on above: Performed By: #### ROSALIA Andrews, GFR #### [address] [address] Hematocrit (Bld) [Volume fraction] 45.5 % Normal 40.0-52.0 [facility] ([place]) Comment on above: Performed By: #### Jacquelin Pena BMP, GFR #### [address] [address] Hgb 14.3 G/dL Normal 13.0-17.5 [facility] ([place]) Comment on above: Performed By: #### Jacquelin Pena BMP, GFR #### [place] [id number] MCH (RBC) [Entitic mass] 28.2 pg Normal 27.0-33.0 [facility] ([place]) Comment on above: Performed By: #### Jacquelin Pena BMP, GFR #### [place] [address] MCHC 31.4 G/dL Low 32.0-36.0 [facility] ([place]) Comment on above: Performed By: #### Jacquelin Pena BMP, GFR #### [place] [id number] MCV (RBC) [Entitic vol] 89.8 fL Normal 81.0-100.0 [facility] ([place]) Comment on above: Performed By: #### Jacquelin Pena BMP, GFR #### [place] [id number] Platelet 202 10 3/mcL Normal 150-450 [facility] ([place]) Comment on above: Performed By: #### Jacquelin Pena BMP, GFR #### [place] [address] Platelet mean volume (Bld) [Entitic vol] 8.7 fL Normal 6.4-10.5 [facility] ([place]) Comment on above: Performed By: #### Jacquelin Pena, BMP, GFR #### [place] [id number] RBC 5.06 10 6/mcL Normal 4.50-6.00 [facility] ([place]) Comment on above: Performed By: #### Jacquelin Pena, BMP, GFR #### [address] [place], [place] [address] WBC 5.1 10 3/mcL Normal 4.5-10.8 [facility] ([place]) Comment on above: Performed By: #### ROSALIA Andrews, GFR #### [place] [id number] [address] [place] [address] MGon 08-11-2022 Magnesium [Mass/Vol] 2.8 mg/dL High 1.6-2.4 [facility] ([place]) Comment on above: Performed By: #### M Jean, BMP, GFR #### [place] [id number] [address] [place] [address] XR CHEST 1 VIEWon 08-11-2022 XR CHEST 1 VIEW ORIGINAL HISTORY: CHF COMPARISON: 06 August 2022 FINDINGS: The study is limited by habitus. The film is mildly rotated. There is a right-sided port with tip in the right atrium. There are mild streaky and patchy airspace opacities in the lung bases. The pulmonary vasculature is unremarkable in appearance. IMPRESSION: Mild basilar atelectasis and or consolidation. Interpreted by: Shamika Gonsales MD Preliminary Report By: Shamika Gonsales MD Electronically signed By Shamika Gonsales MD Dictated Date: 08/11/2022 12:43:26 PM Prelim Date: 08/11/2022 12:44:18 PM Sign Date: 08/11/2022 12:44:18 PM Ordering Provider: ROLAND Moreno [facility] ([place]) .GFRon 08-10-2022 GFR Non- 18 ml/min/1.73sqm Normal [facility] ([place]) Comment on above: Result Comment: GFR Population mean for , [...] 15 mL/min/1.73 square meters Performed By: #### Jacquelin Pena BMP, GFR ####[address] [address] GFR 22 ml/min/1.73sqm Normal [facility] ([place]) Comment on above: Result Comment: GFR Population mean for , [...] 15 mL/min/1.73 square meters Performed By: #### Jacquelin Pena BMP, GFR ####[address] [address] BMPon 08-10-2022 BUN/Creatinine Ratio 25.1 ratio High 10.0-22.0 [facility] ([place]) Comment on above: Performed By: #### Jacquelin Pena BMP, GFR ####[address] [address] Calcium [Mass/Vol] 8.6 mg/dL Low 8.7-10.4 [facility] ([place]) Comment on above: Performed By: #### Jacquelin Pena BMP, GFR ####[address] [address] Chloride [Moles/Vol] 97 mmol/L Low 98-110 [facility] ([place]) Comment on above: Performed By: #### Jacquelin Pena BMP, GFR ####[address] [address] CO2 [Moles/Vol] 39 mmol/L High 22-32 [facility] ([place]) Comment on above: Performed By: #### Jacquelin Pena BMP, GFR ####[address] [address] Creatinine [Mass/Vol] 3.43 mg/dL High 0.60-1.40 [facility] ([place]) Comment on above: Performed By: #### ROSALIA Andrews, GFR ####[place] [address] Electrolyte Balance 2.0 mEq/L Low 4.0-15.0 [facility] ([place]) Comment on above: Performed By: #### ROSALIA Andrews, GFR ####[place] [address] Glucose [Mass/Vol] 104 mg/dL Normal 82-115 [facility] ([place]) Comment on above: Performed By: #### ROSALIA Andrews, GFR ####[place] [address] Potassium [Moles/Vol] 5.0 mmol/L Normal 3.5-5.0 [facility] ([place]) Comment on above: Performed By: #### ROSALIA Andrews, GFR ####[place] [address] Sodium [Moles/Vol] 138 mmol/L Normal 136-145 [facility] ([place]) Comment on above: Performed By: #### ROSALIA Andrews, GFR ####[place] [address] Urea nitrogen [Mass/Vol] 86.0 mg/dL High 8.0-22.0 [facility] ([place]) Comment on above: Performed By: #### ROSALIA Andrews, GFR ####[place] [address] HBSAGon 08-10-2022 Hep B Surf Ag Non-Reactive Normal Non-Reactiv [facility] ([place]) Comment on above: Performed By: #### H BSAG #### [place] [address] Hep B Surf Ag Non-Reactive Normal Non-Reactiv e [facility] ([place]) Comment on above: Performed By: #### H BSAG #### [place] [address] LABORATORYOrdered By: SYSTEM SYSTEM on 08-10-2022 HBV surface Ag IA Ql Non-Reactive (08/10/22 4:08 PM) Invalid Interpretation Code Non-Reactiv e AH ADM SS HBV surface Ag IA Ql Non-Reactive (08/10/22 10:48 AM) Invalid Interpretation Code Non-Reactiv e AH ADM SS MGon 08-10-2022 Magnesium [Mass/Vol] 2.9 mg/dL High 1.6-2.4 [facility] ([place]) Comment on above: Performed By: #### Jacquelin Pena, BMP, GFR ####[address] [address] .GFRon 08-09-2022 GFR 25 ml/min/1.73sqm Normal [facility] ([place]) Comment on above: Result Comment: GFR Population mean for , [...] 15 mL/min/1.73 square meters Performed By: #### Jacquelin Pena PHOS, BMP, GFR ####[place] [address] GFR Non- 21 ml/min/1.73sqm Normal [facility] ([place]) Comment on above: Result Comment: GFR Population mean for , [...] 15 mL/min/1.73 square meters Performed By: #### Jacquelin Pena PHOS BMP, GFR ####[address] [address] BMPon 08-09-2022 BUN/Creatinine Ratio 25.4 ratio High 10.0-22.0 [facility] ([place]) Comment on above: Performed By: #### Jacquelin Pena PHOFabián BMP, GFR ####[address] [address] Calcium [Mass/Vol] 8.9 mg/dL Normal 8.7-10.4 [facility] ([place]) Comment on above: Performed By: #### Jacquelin Pena PHOFabián BMP, GFR ####[address] [address] Chloride [Moles/Vol] 92 mmol/L Low 98-110 [facility] ([place]) Comment on above: Performed By: #### Jacquelin Pena PHOS BMP, GFR ####[address] [address] CO2 [Moles/Vol] 39 mmol/L High 22-32 [facility] ([place]) Comment on above: Performed By: #### Jacquelin Pena PHOFabián BMP, GFR ####[address] [address] Creatinine [Mass/Vol] 3.03 mg/dL High 0.60-1.40 [facility] ([place]) Comment on above: Performed By: #### Jacquelin Pena PHOS, BMP, GFR ####[address] [address] Electrolyte Balance 4.0 mEq/L Normal 4.0-15.0 [facility] ([place]) Comment on above: Performed By: #### Jacquelin Pena PHOS, BMP, GFR ####[address] [address] Glucose [Mass/Vol] 158 mg/dL High 82-115 [facility] ([place]) Comment on above: Performed By: #### Jacquelin Pena PHOS, BMP, GFR ####[address] [address] Potassium [Moles/Vol] 5.1 mmol/L High 3.5-5.0 [facility] ([place]) Comment on above: Performed By: #### M G, PHOS, BMP, GFR ####[address] [address] Sodium [Moles/Vol] 135 mmol/L Low 136-145 [facility] ([place]) Comment on above: Performed By: #### M G, PHOS, BMP, GFR ####[address] [address] Urea nitrogen [Mass/Vol] 77.0 mg/dL High 8.0-22.0 [facility] ([place]) Comment on above: Performed By: #### M G, PHOS, BMP, GFR ####[address] [address] HFPon 08-09-2022 Bili Indirect 0.4 mg/dL Normal 0.1-10.0 [facility] ([place]) Comment on above: Performed By: #### H BSAG #### [place] [id number] Albumin Level 2.8 G/dL Low 3.2-4.8 [facility] ([place]) Comment on above: Performed By: #### H BSAG #### [place] [id number] Albumin/Globulin [Mass ratio] 0.7 {ratio} Low 0.9-1.6 [facility] ([place]) Comment on above: Performed By: #### H BSAG #### [address] [address] ALP [Catalytic activity/Vol] 82 U/L Normal 38-126 [facility] ([place]) Comment on above: Performed By: #### H BSAG #### [place] [id number] ALT/SGPT <8 Low 12-55 [facility] ([place]) Comment on above: Performed By: #### H BSAG #### [place] [address] AST [Catalytic activity/Vol] 14 U/L Normal 8-34 [facility] ([place]) Comment on above: Performed By: #### H BSAG #### [place] [address] Bili Direct 0.3 mg/dL Normal 0.0-0.4 [facility] ([place]) Comment on above: Result Comment: Use of this assay is not recommended for patients undergoing treatment with eltrombopag due to the potential for falsely elevated results. Performed By: #### H BSAG #### [place] [address] Bili Total 0.70 mg/dL Normal 0.20-1.20 [facility] ([place]) Comment on above: Result Comment: Use of this assay is not recommended for patients undergoing treatment with eltrombopag due to the potential for falsely elevated results. Performed By: #### H BSAG #### [place] [address] Globulin 4.3 G/dL High 1.5-3.8 [facility] ([place]) Comment on above: Performed By: #### H BSAG #### [place] [address] Total Protein 7.1 G/dL Normal 5.7-8.2 [facility] ([place]) Comment on above: Result Comment: No te - New Reference Range in effect 20 Performed By: #### H BSAG #### [place] [address] LABORATORYOrdered By: SYSTEM SYSTEM on 08-09-2022 Albumin BCP dye [Mass/Vol] 2.8 G/dL Invalid Interpretation Code 3.2 - 4.8 G/dL ADM SS Albumin/Globulin [Mass ratio] 0.7 {ratio} Invalid Interpretation Code 0.9 - 1.6 ratio ADM SS ALP [Catalytic activity/Vol] 82 U/L Invalid Interpretation Code 38 - 126 U/L ADM SS ALT No additional P-5'-P [Catalytic activity/Vol] U/L 1 Invalid Interpretation Code 12 - 55 U/L AH ADM SS AST [Catalytic activity/Vol] 14 U/L Invalid Interpretation Code 8 - 34 U/L AH ADM SS Bili Indirect 0.4 mg/dL Invalid Interpretation Code 0.1 - 10.0 mg/dL Chemistry S Bilirubin [Mass/Vol] 0.70 mg/dL Invalid Interpretation Code 0.20 - 1.20 mg/dL AH ADM SS Bilirubin.conjugated [Mass/Vol] 0.3 mg/dL Invalid Interpretation Code 0.0 - 0.4 mg/dL AH ADM SS Globulin 4.3 G/dL Invalid Interpretation Code 1.5 - 3.8 G/dL AH ADM SS Protein [Mass/Vol] 7.1 G/dL Invalid Interpretation Code 5.7 - 8.2 G/dL AH ADM SS Phosphate [Mass/Vol] 5.4 mg/dL Invalid Interpretation Code 2.4 - 5.1 mg/dL AH ADM SS LABORATORYOrdered By: Caitlin Arceo on 08-09-2022 Lactate [Moles/Vol] 0.8 mmol/L Invalid Interpretation Code 0.2 - 2.0 mmol/L AH Auto Chem SS LABORATORYOrdered By: Jeanette Easton on 08-09-2022 Appearance (U) Clear (08/09/22 1:18 AM) Invalid Interpretation Code Clear AH Auto Urine SS Bacteria LM.HPF (Urine sed) [#/Area] Trace /HPF Invalid Interpretation Code Negative/HP F AH Auto Urine SS Bilirubin Ql (U) Negative (08/09/22 1:18 AM) Invalid Interpretation Code Neg-Trace AH Auto Urine SS Color (U) Yellow (08/09/22 1:18 AM) Invalid Interpretation Code AH Auto Urine SS Crystals.amorphous LM.HPF (Urine sed) [#/Area] 1 /[HPF] Invalid Interpretation Code AH Auto Urine SS Glucose Test strip (U) [Mass/Vol] Negative Invalid Interpretation Code Negativemg/ dL AH Auto Urine SS Hemoglobin Auto test strip (U) [Mass/Vol] Negative (08/09/22 1:18 AM) Invalid Interpretation Code Neg-Trace AH Auto Urine SS Ketones Ql (U) Negative Invalid Interpretation Code Neg-Tracemg /dL AH Auto Urine SS UA Leuk Est Small *ABN* (08/09/22 1:18 AM) Invalid Interpretation Code Negative AH Auto Urine SS UA Mucous Trace /HPF Invalid Interpretation Code AH Auto Urine SS UA Nitrite Negative (08/09/22 1:18 AM) Invalid Interpretation Code Negative AH Auto Urine SS UA pH 5.0 (08/09/22 1:18 AM) Invalid Interpretation Code 5.0 - 8.0 AH Auto Urine SS UA Protein 100 mg/dL Invalid Interpretation Code Negativemg/ dL Auto Urine SS UA RBC Negative Invalid Interpretation Code 0-2/HPF Auto Urine SS UA Spec Grav 1.015 (08/09/22 1:18 AM) Invalid Interpretation Code 1.006-1.029 Auto Urine SS UA Specimen Type Void (08/09/22 1:18 AM) Invalid Interpretation Code AH Auto Urine SS UA Squam Epithelial 3-5 /HPF Invalid Interpretation Code 0-20/HPF Auto Urine SS UA Urobilinogen 1.0 E.U./dL Invalid Interpretation Code 0.2-1.0E.U. /dL Auto Urine SS WBC LM.HPF (Urine sed) [#/Area] 0-2 /HPF Invalid Interpretation Code 0-5/HPF Auto Urine SS LACon 08-09-2022 Lactic Acid Lvl 0.8 mmol/L Normal 0.2-2.0 [facility] ([place]) Comment on above: Performed By: #### H BSAG #### [address] [address] MGon 08-09-2022 Magnesium [Mass/Vol] 2.7 mg/dL High 1.6-2.4 [facility] ([place]) Comment on above: Performed By: #### M G, PHOS, BMP, GFR ####[address] [address] PHOSon 08-09-2022 Phosphate [Mass/Vol] 5.4 mg/dL High 2.4-5.1 [facility] ([place]) Comment on above: Result Comment: No te - New Reference Range in effect 20 Performed By: #### M G, PHOS, BMP, GFR ####[address] [address] UAon 08-09-2022 Color (U) Yellow Normal [facility] ([place]) Comment on above: Performed By: #### U A, UAMIC ####[address] [address] Glucose (U) [Mass/Vol] Negative Normal Negative [facility] ([place]) Comment on above: Performed By: #### U A, UAMIC ####[place] [address] Ketones Ql (U) Negative Normal Neg-Trace [facility] ([place]) Comment on above: Performed By: #### U A, UAMIC ####[place] [address] UA Appear Clear Normal Clear [facility] ([place]) Comment on above: Performed By: #### U A, UAMIC ####[place] [address] UA Blood Negative Normal Neg-Trace [facility] ([place]) Comment on above: Performed By: #### U A, UAMIC ####[place] [address] UA Leuk Est Small Abnormal Negative [facility] ([place]) Comment on above: Performed By: #### U A, UAMIC ####[place] [address] UA Nitrite Negative Normal Negative [facility] ([place]) Comment on above: Performed By: #### U A, UAMIC ####[place] [address] UA pH 5.0 Normal 5.0 - 8.0 [facility] ([place]) Comment on above: Performed By: #### U A, UAMIC ####[place] [address] UA Protein 100 mg/dL Abnormal Negative [facility] ([place]) Comment on above: Performed By: #### U A, UAMIC ####[place] [address] UA Spec Grav 1.015 Normal 1.006-1.029 [facility] ([place]) Comment on above: Performed By: #### U A, UAMIC ####[place] [address] UA Specimen Type Void Normal [facility] ([place]) Comment on above: Performed By: #### U A, UAMIC ####[place] [address] UA Urobilinogen 1.0 E.U./dL Normal 0.2-1.0 [facility] ([place]) Comment on above: Performed By: #### U A, UAMIC ####[place] [address] Urobilinogen (U) [Mass/Vol] Negative Normal Neg-Trace [facility] ([place]) Comment on above: Performed By: #### U A, UAMIC ####[place] [address] UAMICon 08-09-2022 UA Amorphus 1+ /hpf Normal [facility] ([place]) Comment on above: Performed By: #### U A, UAMIC ####[place] [address] UA Bacteria Trace Abnormal Negative [facility] ([place]) Comment on above: Performed By: #### U A, UAMIC ####[place] [address] UA Mucous Trace Normal [facility] ([place]) Comment on above: Performed By: #### U A, UAMIC ####[place] [address] UA RBC Negative Normal 0-2 [facility] ([place]) Comment on above: Performed By: #### U A, UAMIC ####[place] [address] UA Squam Epithelial 3-5 Normal 0-20 [facility] ([place]) Comment on above: Performed By: #### U A, UAMIC ####[place] [address] UA WBC 0-2 Normal 0-5 [facility] ([place]) Comment on above: Performed By: #### U A, UAMIC ####[place] [address] .GFRon 08-08-2022 GFR 33 ml/min/1.73sqm Normal [facility] ([place]) Comment on above: Result Comment: GFR Population mean for , [...] 15 mL/min/1.73 square meters Performed By: #### Jacquelin Pena, BMP, GFR #### [address] [address] GFR Non- 27 ml/min/1.73sqm Normal [facility] ([place]) Comment on above: Result Comment: GFR Population mean for , [...] 15 mL/min/1.73 square meters Performed By: #### Jacquelin Pena, BMP, GFR #### [address] [address] BMPon 08-08-2022 BUN/Creatinine Ratio 38.4 ratio High 10.0-22.0 [facility] ([place]) Comment on above: Performed By: #### Jacquelin Pena BMP, GFR #### [address] [address] Calcium [Mass/Vol] 8.6 mg/dL Low 8.7-10.4 [facility] ([place]) Comment on above: Performed By: #### Jacquelin Pena, BMP, GFR #### [address] [address] Chloride [Moles/Vol] 96 mmol/L Low 98-110 [facility] ([place]) Comment on above: Performed By: #### ROSALIA Andrews, GFR #### [address] [address] CO2 [Moles/Vol] 38 mmol/L High 22-32 [facility] ([place]) Comment on above: Performed By: #### Jacquelin Pean BMP, GFR #### [address] [address] Creatinine [Mass/Vol] 2.37 mg/dL High 0.60-1.40 [facility] ([place]) Comment on above: Performed By: #### ROSALIA Andrews, GFR #### [address] [address] Electrolyte Balance 5.0 mEq/L Normal 4.0-15.0 [facility] ([place]) Comment on above: Performed By: #### ROSALIA Andrews, GFR #### [address] [address] Glucose [Mass/Vol] 106 mg/dL Normal 82-115 [facility] ([place]) Comment on above: Performed By: #### ROSALIA Andrews, GFR #### [address] [address] Potassium [Moles/Vol] 5.6 mmol/L High 3.5-5.0 [facility] ([place]) Comment on above: Performed By: #### ROSALIA Andrews, GFR #### [address] [address] Sodium [Moles/Vol] 139 mmol/L Normal 136-145 [facility] ([place]) Comment on above: Performed By: #### ROSALIA Andrews, GFR #### [address] [address] Urea nitrogen [Mass/Vol] 91.0 mg/dL High 8.0-22.0 [facility] ([place]) Comment on above: Performed By: #### ROSALIA Andrews, GFR #### [address] [address] MGon 08-08-2022 Magnesium [Mass/Vol] 2.6 mg/dL High 1.6-2.4 [facility] ([place]) Comment on above: Performed By: #### M G, BMP, GFR #### [facility] [address] [place] [address] .GFRon 08-07-2022 GFR Non- 38 ml/min/1.73sqm Normal [facility] ([place]) Comment on above: Result Comment: GFR Population mean for , [...] 15 mL/min/1.73 square meters Performed By: #### V BG, GFR, BMP ####[place] [address] [address] [place] [address] GFR 46 ml/min/1.73sqm Normal [facility] ([place]) Comment on above: Result Comment: GFR Population mean for , [...] 15 mL/min/1.73 square meters Performed By: #### V BG, GFR, BMP ####[place] [address] [address] [place] [address] GFR 51 ml/min/1.73sqm Normal [facility] ([place]) Comment on above: Result Comment: GFR Population mean for , [...] 15 mL/min/1.73 square meters Performed By: #### G FR, MG, BMP, VBG ####[address] [address] GFR Non- 42 ml/min/1.73sqm Normal [facility] ([place]) Comment on above: Result Comment: GFR Population mean for , [...] 15 mL/min/1.73 square meters Performed By: #### G FR, MG, BMP, VBG ####[place] [address] BMPon 08-07-2022 BUN/Creatinine Ratio 26.7 ratio High 10.0-22.0 [facility] ([place]) Comment on above: Performed By: #### V BG, GFR, BMP ####[address] [address] Calcium [Mass/Vol] 8.9 mg/dL Normal 8.7-10.4 [facility] ([place]) Comment on above: Performed By: #### V BG, GFR, BMP ####[address] [address] Chloride [Moles/Vol] 98 mmol/L Normal 98-110 [facility] ([place]) Comment on above: Performed By: #### V BG, GFR, BMP ####[address] [address] CO2 [Moles/Vol] 31 mmol/L Normal 22-32 [facility] ([place]) Comment on above: Performed By: #### V BG, GFR, BMP ####[address] [address] Creatinine [Mass/Vol] 1.80 mg/dL High 0.60-1.40 [facility] ([place]) Comment on above: Performed By: #### V BG, GFR, BMP ####[address] [address] Electrolyte Balance 4.0 mEq/L Normal 4.0-15.0 [facility] ([place]) Comment on above: Performed By: #### V BG, GFR, BMP ####[address] [address] Glucose [Mass/Vol] 242 mg/dL High 82-115 [facility] ([place]) Comment on above: Performed By: #### V BG, GFR, BMP ####[address] [address] Potassium [Moles/Vol] 5.5 mmol/L High 3.5-5.0 [facility] ([place]) Comment on above: Result Comment: Spec imen slightly hemolyzed. Performed By: #### V BG, GFR, BMP ####[address] [address] Sodium [Moles/Vol] 133 mmol/L Low 136-145 [facility] ([place]) Comment on above: Performed By: #### V BG, GFR, BMP ####[address] [address] Urea nitrogen [Mass/Vol] 48.0 mg/dL High 8.0-22.0 [facility] ([place]) Comment on above: Performed By: #### V BG, GFR, BMP ####[place] [address] BUN/Creatinine Ratio 47.6 ratio High 10.0-22.0 [facility] ([place]) Comment on above: Performed By: #### G FR, MG, BMP, VBG ####[address] [address] Calcium [Mass/Vol] 8.6 mg/dL Low 8.7-10.4 [facility] ([place]) Comment on above: Performed By: #### G FR, MG, BMP, VBG ####[place] [address] Chloride [Moles/Vol] 96 mmol/L Low 98-110 [facility] ([place]) Comment on above: Performed By: #### G FR, MG, BMP, VBG ####[place] [address] CO2 [Moles/Vol] 35 mmol/L High 22-32 [facility] ([place]) Comment on above: Performed By: #### G FR, MG, BMP, VBG ####[place] [address] Creatinine [Mass/Vol] 1.64 mg/dL High 0.60-1.40 [facility] ([place]) Comment on above: Performed By: #### G FR, MG, BMP, VBG ####[place] [address] Electrolyte Balance 7.0 mEq/L Normal 4.0-15.0 [facility] ([place]) Comment on above: Performed By: #### G FR, MG, BMP, VBG ####[place] [address] Glucose [Mass/Vol] 110 mg/dL Normal 82-115 [facility] ([place]) Comment on above: Performed By: #### G FR, MG, BMP, VBG ####[address] [place] [address] Potassium [Moles/Vol] 5.2 mmol/L High 3.5-5.0 [facility] ([place]) Comment on above: Result Comment: Spec imen slightly hemolyzed. Performed By: #### G FR, MG, BMP, VBG ####[address] [address] Sodium [Moles/Vol] 138 mmol/L Normal 136-145 [facility] ([place]) Comment on above: Performed By: #### G FR, MG, BMP, VBG ####[address] [address] Urea nitrogen [Mass/Vol] 78.0 mg/dL High 8.0-22.0 [facility] ([place]) Comment on above: Performed By: #### G FR, MG, BMP, VBG ####[address] [address] LABORATORYOrdered By: Vimal Hays on 08-07-2022 Base excess Calc (BldV) [Moles/Vol] 6.8 mmol/L Invalid Interpretation Code -3.0 - 3.0 mmol/L AH Auto Chem SS CO2 (BldV) [Partial pressure] 95.0 mm[Hg] Invalid Interpretation Code 41.0 - 51.0 mm Hg AH Auto Chem SS CO2 Calc (BldV) [Moles/Vol] 41.7 mmol/L Invalid Interpretation Code 22.0 - 32.0 mmol/L AH Auto Chem SS Comment on above: Result Comment: Call ed to Marlen WALKER HCO3 (Bld) [Moles/Vol] 38.8 mmol/L Invalid Interpretation Code 21.0 - 30.0 mmol/L AH Auto Chem SS Oxygen (BldV) [Partial pressure] 102.2 mm[Hg] Invalid Interpretation Code 35.0 - 40.0 mm Hg AH Auto Chem SS pH (BldV) 7.229 [pH] Invalid Interpretation Code 7.380 - 7.460 AH Auto Chem SS LABORATORYOrdered By: Maurisio Nguyen on 08-07-2022 Base excess Calc (BldV) [Moles/Vol] 6.2 mmol/L Invalid Interpretation Code -3.0 - 3.0 mmol/L AH Auto Chem SS CO2 (BldV) [Partial pressure] 59.4 mm[Hg] Invalid Interpretation Code 41.0 - 51.0 mm Hg Auto Chem SS CO2 Calc (BldV) [Moles/Vol] 35.3 mmol/L Invalid Interpretation Code 22.0 - 32.0 mmol/L Auto Chem SS HCO3 (Bld) [Moles/Vol] 33.5 mmol/L Invalid Interpretation Code 21.0 - 30.0 mmol/L Auto Chem SS Oxygen (BldV) [Partial pressure] 276.4 mm[Hg] Invalid Interpretation Code 35.0 - 40.0 mm Hg Auto Chem SS pH (BldV) 7.369 [pH] Invalid Interpretation Code 7.380 - 7.460 Auto Chem SS MGon 08-07-2022 Magnesium [Mass/Vol] 2.4 mg/dL Normal 1.6-2.4 [facility] ([place]) Comment on above: Performed By: #### G FR, MG, BMP, VBG ####[place] [address] VBGon 08-07-2022 BE Venous 6.8 mmol/L High -3.0-3.0 [facility] ([place]) Comment on above: Performed By: #### V BG, GFR, BMP ####[place] [address] HCO3 (Bld) [Moles/Vol] 38.8 mmol/L High 21.0-30.0 [facility] ([place]) Comment on above: Performed By: #### V BG, GFR, BMP ####[place] [address] pCO2 Ciaran 95.0 mmHg High 41.0-51.0 [facility] ([place]) Comment on above: Performed By: #### V BG, GFR, BMP ####[place] [address] pH Venous 7.229 Low 7.380-7.460 [facility] ([place]) Comment on above: Performed By: #### V BG, GFR, BMP ####[place] [address] pO2 Ciaran 102.2 mmHg High 35.0-40.0 [facility] ([place]) Comment on above: Performed By: #### V BG, GFR, BMP ####[place] [address] TCO2 Venous 96.9 % High 70.0-75.0 [facility] ([place]) Comment on above: Performed By: #### V BG, GFR, BMP ####[place] [address] BE Venous 6.2 mmol/L High -3.0-3.0 [facility] ([place]) Comment on above: Performed By: #### G FR, MG, BMP, VBG ####[place] [address] HCO3 (Bld) [Moles/Vol] 33.5 mmol/L High 21.0-30.0 [facility] ([place]) Comment on above: Performed By: #### G FR, MG, BMP, VBG ####[place] [address] pCO2 Ciaran 59.4 mmHg High 41.0-51.0 [facility] ([place]) Comment on above: Performed By: #### G FR, MG, BMP, VBG ####[place] [address] pH Venous 7.369 Low 7.380-7.460 [facility] ([place]) Comment on above: Performed By: #### G FR, MG, BMP, VBG ####[place] [address] pO2 Ciaran 276.4 mmHg High 35.0-40.0 [facility] ([place]) Comment on above: Performed By: #### G FR, MG, BMP, VBG ####[place] [address] TCO2 Venous 99.9 % High 70.0-75.0 [facility] ([place]) Comment on above: Performed By: #### G FR, MG, BMP, VBG ####[place] [address] .Auto Diffon 08-06-2022 Basophil, Absolute 0.0 10 3/mcL Normal 0.0-0.3 [facility] ([place]) Comment on above: Performed By: #### Jacquelin Pena BMP, GFR #### [address] [address] Basophils/100 WBC (Bld) 0.4 % Normal 0.0-2.5 [facility] ([place]) Comment on above: Performed By: #### Jacquelin Pena, BMP, GFR #### [address] [address] Eosinophil, Absolute 0.0 10 3/mcL Normal 0.0-0.7 [facility] ([place] Comment on above: Performed By: #### Jacquelin Pena BMP, GFR #### [address] [address] Eosinophils/100 WBC (Bld) 0.4 % Normal 0.0-6.0 [facility] ([place]) Comment on above: Performed By: #### Jacquelin Pena BMP, GFR #### [address] [address] Lymphocyte, Absolute 0.3 10 3/mcL Low 0.9-4.3 [facility] ([place]) Comment on above: Performed By: #### Jacquelin Pena BMP, GFR #### [address] [address] Lymphocytes/100 WBC (Bld) 6.0 % Low 20.0-40.0 [facility] ([place]) Comment on above: Performed By: #### Jacquelin Pena BMP, GFR #### [address] [address] Monocyte, Absolute 0.4 10 3/mcL Normal 0.1-1.4 [facility] ([place]) Comment on above: Performed By: #### Jacquelin Pena BMP, GFR #### [address] [address] Monocytes/100 WBC (Bld) 6.7 % Normal 2.0-13.0 [facility] ([place]) Comment on above: Performed By: #### Jacquelin Pena, BMP, GFR #### [address] [address] Neutrophils/100 WBC (Bld) 86.5 % High 50.0-75.0 [facility] ([place]) Comment on above: Performed By: #### Jacquelin Pena, BMP, GFR #### [address] [address] .GFRon 08-06-2022 GFR Non- 46 ml/min/1.73sqm Normal [facility] ([place]) Comment on above: Result Comment: GFR Population mean for , [...] 15 mL/min/1.73 square meters Performed By: #### Jacquelin Pena, BMP, GFR #### [address] [address] GFR 55 ml/min/1.73sqm Normal [facility] ([place]) Comment on above: Result Comment: GFR Population mean for , [...] 15 mL/min/1.73 square meters Performed By: #### Jacquelin G, BMP, GFR #### [address] [address] .MDWon 08-06-2022 Monocyte Distribution Width 18.58 Normal 0.00-20.00 [facility] ([place]) Comment on above: Result Comment: For ED adult patients suspected of sepsis, MDW<=20.0 does not rule out sepsis or risk of sepsis Performed By: #### Jacquelin Pena BMP, GFR #### [address] [address] .NEUABSon 08-06-2022 Neutrophil, Absolute 5.0 10 3/mcL Normal 2.3-8.1 [facility] ([place] Comment on above: Performed By: #### Jacquelin Pena, BMP, GFR #### [address] [address] BGon 08-06-2022 Barometric Pressure 718 mmHg Normal [facility] ([place]) Comment on above: Performed By: #### Jacquelin Pena, BMP, GFR #### [place] [address] Base excess Calc (Bld) [Moles/Vol] 8.2 mmol/L Normal [facility] ([place]) Comment on above: Performed By: #### Jacquelin Pena, BMP, GFR #### [place] [address] CO2 [Moles/Vol] 41.8 mmol/L Critically abnormal 22.0-30.0 [facility] ([place]) Comment on above: Performed By: #### Jacquelin Pena, BMP, GFR #### [place] [address] HCO3 (Bld) [Moles/Vol] 39.1 mmol/L High 21.0-29.0 [facility] ([place]) Comment on above: Performed By: #### Jacquelin Pena, BMP, GFR #### [place] [id number] Oxygen (Bld) [Partial pressure] 96.5 mm[Hg] Normal 74.0-108.0 [facility] ([place]) Comment on above: Performed By: #### Jacquelin Pena, BMP, GFR #### [place] [id number] Oxygen saturation in Blood 97.1 % High 92.0-96.0 [facility] ([place]) Comment on above: Performed By: #### M G, BMP, GFR #### [facility] [address] [place] [address] pCO2 87.5 mmHg Critically abnormal 32.0-46.0 [facility] ([place]) Comment on above: Performed By: #### M G, BMP, GFR #### [facility] [address] [place] [address] pH (Bld) 7.268 [pH] Low 7.380-7.460 [facility] ([place]) Comment on above: Performed By: #### M G, BMP, GFR #### [facility] [address] [place] [address] Barometric Pressure 745 mmHg Normal [facility] ([place]) Comment on above: Performed By: #### B G ####[address] [address] Base excess Calc (Bld) [Moles/Vol] 14.9 mmol/L Normal [facility] ([place]) Comment on above: Performed By: #### B G ####[address] [address] CO2 [Moles/Vol] 52.7 mmol/L Critically abnormal 22.0-30.0 [facility] ([place]) Comment on above: Performed By: #### B G ####[address] [address] HCO3 (Bld) [Moles/Vol] 48.9 mmol/L High 21.0-29.0 [facility] ([place]) Comment on above: Performed By: #### B G ####[address] [address] Oxygen (Bld) [Partial pressure] 32.8 mm[Hg] Critically abnormal 74.0-108.0 [facility] ([place]) Comment on above: Performed By: #### B G ####[facility] [place] [address] Oxygen saturation in Blood 46.9 % Low 92.0-96.0 [facility] ([place]) Comment on above: Performed By: #### B G ####[place] [address] pCO2 122.9 mmHg Critically abnormal 32.0-46.0 [facility] ([place]) Comment on above: Performed By: #### B G ####[place] [address] pH (Bld) 7.218 [pH] Low 7.380-7.460 [facility] ([place]) Comment on above: Performed By: #### B G ####[place] [address] CBCon 08-06-2022 Erythrocyte distribution width (RBC) [Ratio] 17.8 % High 11.5-15.5 [facility] ([place]) Comment on above: Performed By: #### M Jean BMP, GFR #### [place] [address] Hematocrit (Bld) [Volume fraction] 48.9 % Normal 40.0-52.0 [facility] ([place]) Comment on above: Performed By: #### Jacquelin Pena BMP, GFR #### [place] [address] Hgb 15.3 G/dL Normal 13.0-17.5 [facility] ([place]) Comment on above: Performed By: #### Jacquelin Pena BMP, GFR #### [place] [address] MCH (RBC) [Entitic mass] 29.0 pg Normal 27.0-33.0 [facility] ([place]) Comment on above: Performed By: #### M Jean, BMP, GFR #### [place] [address] MCHC 31.3 G/dL Low 32.0-36.0 [facility] ([place]) Comment on above: Performed By: #### M Jean, BMP, GFR #### [place] [address] MCV (RBC) [Entitic vol] 92.7 fL Normal 81.0-100.0 [facility] ([place]) Comment on above: Performed By: #### Jacquelin Pena, BMP, GFR #### [address] [address] Platelet 229 10 3/mcL Normal 150-450 [facility] ([place]) Comment on above: Performed By: #### ROSALIA Andrews, GFR #### [address] [address] Platelet mean volume (Bld) [Entitic vol] 8.5 fL Normal 6.4-10.5 [facility] ([place]) Comment on above: Performed By: #### ROSALIA Andrews, GFR #### [address] [address] RBC 5.28 10 6/mcL Normal 4.50-6.00 [facility] ([place]) Comment on above: Performed By: #### ROSALIA Andrews, GFR #### [address] [address] WBC 5.8 10 3/mcL Normal 4.5-10.8 [facility] ([place]) Comment on above: Performed By: #### ROSALIA Andrews, GFR #### [address] [address] CMPon 08-06-2022 Electrolyte Balance see comment Normal 4.0-15.0 [facility] ([place]) Comment on above: Result Comment: unab le to calculate Performed By: #### ROSALIA Andrews, GFR #### [address] [address] Albumin Level 3.5 G/dL Normal 3.2-4.8 [facility] ([place]) Comment on above: Performed By: #### ROSALIA Andrews, GFR #### [address] [address] Albumin/Globulin [Mass ratio] 0.7 {ratio} Low 0.9-1.6 [facility] ([place]) Comment on above: Performed By: #### ROSALIA Andrews, GFR #### [address] [address] ALP [Catalytic activity/Vol] 96 U/L Normal 38-126 [facility] ([place]) Comment on above: Performed By: #### ROSALIA Andrews, GFR #### [address] [address] ALT/SGPT <8 Low 12-55 [facility] ([place]) Comment on above: Performed By: #### Jacquelin Pena BMP, GFR #### [address] [address] AST [Catalytic activity/Vol] 18 U/L Normal 8-34 [facility] ([place]) Comment on above: Performed By: #### Jacquelin Pena BMP, GFR #### [address] [address] Bili Total 0.90 mg/dL Normal 0.20-1.20 [facility] ([place]) Comment on above: Result Comment: Use of this assay is not recommended for patients undergoing treatment with eltrombopag due to the potential for falsely elevated results. Performed By: #### Jacquelin Pena BMP, GFR #### [place] [id number] BUN/Creatinine Ratio 40.1 ratio High 10.0-22.0 [facility] ([place]) Comment on above: Performed By: #### Jacquelin Pena BMP, GFR #### [address] [address] Calcium [Mass/Vol] 9.1 mg/dL Normal 8.7-10.4 [facility] ([place]) Comment on above: Performed By: #### Jacquelin Pena BMP, GFR #### [address] [address] Chloride [Moles/Vol] 94 mmol/L Low 98-110 [facility] ([place]) Comment on above: Performed By: #### Jacquelin Pena BMP, GFR #### [address] [address] CO2 [Moles/Vol] mmol/L Critically abnormal 22-32 [facility] ([place]) Comment on above: Performed By: #### Jacquelin Pena BMP, GFR #### [address] [address] Creatinine [Mass/Vol] 1.52 mg/dL High 0.60-1.40 [facility] ([place]) Comment on above: Performed By: #### Jacquelin Pena, BMP, GFR #### [address] [address] Globulin 4.7 G/dL High 1.5-3.8 [facility] ([place]) Comment on above: Performed By: #### M Jean, BMP, GFR #### [address] [address] Glucose [Mass/Vol] 315 mg/dL High 82-115 [facility] ([place]) Comment on above: Performed By: #### Jacquelin Pena, BMP, GFR #### [address] [address] Potassium [Moles/Vol] 5.0 mmol/L Normal 3.5-5.0 [facility] ([place]) Comment on above: Result Comment: Spec imen slightly hemolyzed. Performed By: #### Jacquelin Pena, BMP, GFR #### [address] [address] Sodium [Moles/Vol] 134 mmol/L Low 136-145 [facility] ([place]) Comment on above: Performed By: #### Jacquelin Pena, BMP, GFR #### [address] [address] Total Protein 8.2 G/dL Normal 5.7-8.2 [facility] ([place]) Comment on above: Result Comment: No te - New Reference Range in effect 20 Performed By: #### Jacquelin Pena, BMP, GFR #### [address] [address] Urea nitrogen [Mass/Vol] 61.0 mg/dL High 8.0-22.0 [facility] ([place]) Comment on above: Performed By: #### Jacquelin Pena, BMP, GFR #### [address] [address] [address] ANGIOGRAPHY CHEST W/CONTR Mily 08-06-2022 CT ANGIOGRAPHY CHEST W/CONTRAST ORIGINAL EXAMINATION: CTA OF THE CHEST 08/06/2022 11:30 am TECHNIQUE: CTA of the chest was performed after the administration of intravenous contrast. Multiplanar reformatted images are provided for review. MIP images are provided for review. Automated exposure control, iterative reconstruction, and/or weight based adjustment of the mA/kV was utilized to reduce the radiation dose to as low as reasonably achievable. COMPARISON: 01/26/2021. HISTORY: ORDERING SYSTEM PROVIDED HISTORY: Reason for Exam: sob / pt on bipap chest pain; suspect PE FINDINGS: Pulmonary Arteries: Pulmonary arteries are adequately opacified for evaluation. No central, lobar, segmental, or subsegmental embolism given respiratory motion and bibasilar atelectasis/consolidation . Main pulmonary artery is normal in caliber. Mediastinum: No evidence of mediastinal lymphadenopathy. Cardiomegaly. Suspect left ventricle dilatation. There is pericardial thickening versus a small amount of pericardial fluid. Normal rightward IV septal bowing. Aortic and, to a lesser extent, mitral annulus calcifications. Coronary artery calcifications. Dilated main pulmonary artery at 3.8 cm. The ascending aorta measures 5.1 cm, stable. Lungs/pleura: Small right and trace left pleural effusions with associated compressive atelectasis/consolidation . No pneumothorax. Scattered calcified granulomas. There is irregular nodular consolidation in the right upper lobe measuring 1.2 cm on series 2, image 143. There is a 4 mm nodule in the right middle lobe on series 2, image 117. Upper Abdomen: Contrast reflux into the IVC. Otherwise limited images of the upper abdomen are unremarkable. Soft Tissues/Bones: Left gynecomastia. No acute bone or soft tissue abnormality. IMPRESSION: No evidence of pulmonary embolism. Nodular consolidation in the right upper lobe. A CT thorax in 6-8 weeks is recommended to ensure resolution. Small right and trace left pleural effusions with associated compressive atelectasis/consolidation . Superimposed infection is additional consideration. Attention on follow-up. Stable ascending aortic aneurysm. Dilated main pulmonary artery can be seen with pulmonary hypertension. I have personally reviewed the images of this examination and edited the resident's findings and interpretation. RECOMMENDATIONS: Unavailable Interpreted by: Ángel Heard Preliminary Report By: Geoffrey Easton Electronically signed By Ángel Heard Dictated Date: 08/06/2022 11:43:59 AM Prelim Date: 08/06/2022 11:59:04 AM Sign Date: 08/06/2022 12:29:16 PM Ordering Provider: MIKAELA FELDER Normal [facility] ([place]) CVFLURVon 08-06-2022 FLU A PCR Negative Normal Negative [facility] ([place]) Comment on above: Result Comment: [place] [id number] Performed By: #### M G, BMP, GFR #### [facility] [address] [place] [address] FLU B PCR Negative Normal Negative [facility] ([place]) Comment on above: Result Comment: Note s [id number] Performed By: #### M G, BMP, GFR #### [facility] [address] [place], [place] [id number] RSV PCR Negative Normal Negative [facility] ([place]) Comment on above: Result Comment: [place] [id number] Performed By: #### M G, BMP, GFR #### [place] [id number] [place] [address] SARS-CoV-2 (COVID-19) RNA FLAVIO+probe Ql (Unsp spec) Negative Normal Negative [facility] ([place]) Comment on above: Result Comment: Note s [id number] This test has been authorized by FDA under an EUA for use by authorized laboratories and has not been FDA cleared or approved. Results from the Xpert Xpress SARS-CoV-2/Flu/RSV or Xpert Xpress SARS-CoV-2 only test should be correlated with the clinical history, epidemiological data, and other data available to the clinician evaluating the patient. Performance of the Xpert Xpress SARS-CoV-2/Flu/RSV or Xpert Xpress SARS-CoV-2 only test has only been established in nasopharyngeal swab specimens. Erroneous test results might occur from improper specimen collection; failure to follow the recommended sample collection, handling, and storage procedures; technical error; or sample mix-up.False negative results may occur if virus is present at levels below the analytical limit of detection. Viral nucleic acid may persist in vivo, independent of virus viability. Detection of analyte target(s) does not imply that the corresponding virus(es) are infectious or are the causative agents for clinical symptoms.Recent patient exposure to FluMist or other live attenuated influenza vaccines may cause inaccurate positive results. Performed By: #### M Jean, ROSALIA, GFR #### [place] [address] LABORATORYOrdered By: Maurisio Nguyen on 08-06-2022 Barometric Pressure 718 mm[Hg] Invalid Interpretation Code AH Auto Chem SS Base excess Calc (Bld) [Moles/Vol] 8.2 mmol/L Invalid Interpretation Code AH Auto Chem SS CO2 (Bld) [Partial pressure] 87.5 mm[Hg] Invalid Interpretation Code 32.0 - 46.0 mm Hg AH Auto Chem SS Comment on above: Result Comment: call ed to juan diego garcia rn rb CO2 [Moles/Vol] 41.8 mmol/L Invalid Interpretation Code 22.0 - 30.0 mmol/L AH Auto Chem SS Comment on above: Result Comment: call ed to juan diego garcia rn rb HCO3 (Bld) [Moles/Vol] 39.1 mmol/L Invalid Interpretation Code 21.0 - 29.0 mmol/L Auto Chem SS Oxygen (Bld) [Partial pressure] 96.5 mm[Hg] Invalid Interpretation Code 74.0 - 108.0 mm Hg AH Auto Chem SS pH (Bld) 7.268 [pH] Invalid Interpretation Code 7.380 - 7.460 AH Auto Chem SS Lactate [Moles/Vol] 1.2 mmol/L Invalid Interpretation Code 0.2 - 2.0 mmol/L Auto Chem SS LABORATORYOrdered By: SYSTEM SYSTEM on 08-06-2022 Albumin BCP dye [Mass/Vol] 3.5 G/dL Invalid Interpretation Code 3.2 - 4.8 G/dL ADM SS Albumin/Globulin [Mass ratio] 0.7 {ratio} Invalid Interpretation Code 0.9 - 1.6 ratio ADM SS ALP [Catalytic activity/Vol] 96 U/L Invalid Interpretation Code 38 - 126 U/L ADM SS ALT No additional P-5'-P [Catalytic activity/Vol] U/L 1 Invalid Interpretation Code 12 - 55 U/L ADM SS AST [Catalytic activity/Vol] 18 U/L Invalid Interpretation Code 8 - 34 U/L ADM SS Bilirubin [Mass/Vol] 0.90 mg/dL Invalid Interpretation Code 0.20 - 1.20 mg/dL ADM SS Globulin 4.7 G/dL Invalid Interpretation Code 1.5 - 3.8 G/dL ADM SS Monocyte distribution width Auto (Bld) [Entitic vol] 18.58 Invalid Interpretation Code 0.00 - 20.00 Workflow SS Comment on above: Result Comment: For ED adult patients suspected of sepsis, MDW<=20.0 does not rule out sepsis or risk of sepsis Protein [Mass/Vol] 8.2 G/dL Invalid Interpretation Code 5.7 - 8.2 G/dL AH ADM SS Troponin I.cardiac DL <= 0.01 ng/mL [Mass/Vol] 35.54 ng/L Invalid Interpretation Code 0.00 - 54.00 ng/L AH ADM SS LABORATORYOrdered By: Skylar Briones on 08-06-2022 FLUAV RNA FLAVIO+probe Ql (Resp) Negative 7 (08/06/22 9:46 AM) Invalid Interpretation Code Negative AH Auto Viro/Sero SS Comment on above: [place] Comment: [place] [id number] FLUBV RNA FLAVIO+probe Ql (Resp) Negative 8 (08/06/22 9:46 AM) Invalid Interpretation Code Negative AH Auto Viro/Sero SS Comment on above: Result Comment: [place] [id number] RSV PCR Negative 9 (08/06/22 9:46 AM) Invalid Interpretation Code Negative AH Auto Viro/Sero SS Comment on above: Result Comment: [place] [id number] SARS-CoV-2 (COVID-19) RNA FLAVIO+probe Ql (Resp) Negative 6 (08/06/22 9:46 AM) Invalid Interpretation Code Negative AH Auto Viro/Sero SS Comment on above: Result Comment: Note s [id number] LABORATORYOrdered By: Char John on 08-06-2022 Natriuretic peptide.B prohormone N-Terminal [Mass/Vol] 3861 pg/mL Invalid Interpretation Code 0 - 900 pg/mL AH Auto Chem SS LACon 08-06-2022 Lactic Acid Lvl 1.2 mmol/L Normal 0.2-2.0 [facility] ([place]) Comment on above: Performed By: #### M G, BMP, GFR #### [place] [address] No Panel Informationon 08-06 Microscopic examination of blood, culture Blood Culture: No Growth at 5 days. [facility] Work Phone: PBNPon 08-06-2022 Natriuretic peptide B (Bld) [Mass/Vol] 3861 pg/mL High 0-900 [facility] ([place]) Comment on above: Result Comment: NT-p roBNP results of less than 300 pg/mL effectively rules out acute congestive heart failure with 99% negative predictive value. Performed By: #### C MP, ANEU, LAC, ADIFF, PBNP, TROPHS, MDW, CBC, GFR ####[facility] [place] [address] TROPHSon 08-06-2022 Troponin I High Sensitivity 35.54 ng/L Normal 0.00-54.00 [facility] ([place]) Comment on above: Result Comment: If t he High Sensitive Troponin result is below the 99th percentile value (<45 ng/L) at the first blood draw, at least two additional blood samples should be drawn before results are interpreted as negative for AMI. Performed By: #### M G, BMP, GFR #### [facility] [address] [place] [address] XR CHEST 1 VIEWon 08-06-2022 XR CHEST 1 VIEW ORIGINAL EXAMINATION: ONE XRAY VIEW OF THE CHEST 08/06/2022 9:46 am COMPARISON: Chest radiograph 01/25/2021, 01/21/2021, 12/04/2020 HISTORY: ORDERING SYSTEM PROVIDED HISTORY: Reason for Exam: Shortness of breath, cough, fever FINDINGS: Exam is degraded by patient body habitus and portable technique. Mild cardiomegaly.. Hypoventilatory changes. Increased interstitial markings are present. No focal consolidation. No visible pneumothorax or pleural effusion. IMPRESSION: Cardiomegaly and mild vascular congestion. Interpreted by: Nola Heard Preliminary Report By: Nola Heard Electronically signed By Nola Heard Dictated Date: 08/06/2022 9:52:42 AM Prelim Date: 08/06/2022 9:54:36 AM Sign Date: 08/06/2022 9:54:36 AM Ordering Provider: DAWSON Moreno [facility] ([place]) CORONAVIRUS PCR - [facility] 06-08-2021 SARS-CoV-2 (COVID-19) RNA FLAVIO+probe Ql (Unsp spec) Negative Normal NORMAL: NEGATIVE [facility] Comment on above: Performed By: #### 2 [id number] #### [facility],[address] [place] [address] SEND TO IC? YES Normal [facility] Comment on above: Result Comment: RESU LTS FAXED TO INFECTION CONTROL. SARS-CoV-2 THIS TEST IS BEING USED UNDER THE FDA EUA PROCEDURE. THIS ASSAY HAS BEEN VALIDATED IN THE [facility] FOR USE WITH NASOPHARYNGEAL SPECIMENS IN [facility]. INTERPRETIVE DATA LABORATORY TEST RESULTS SHOULD ALWAYS BE CONSIDERED IN THE CONTEXT OF CLINICAL OBSERVATIONS AND EPIDEMIOLOGICAL DATA IN MAKING FINAL DIAGNOSIS AND PATIENT MANAGEMENT DECISIONS. PATIENT MANAGEMENT SHOULD FOLLOW CURRENT CDC GUIDELINES. A POSITIVE TEST RESULT FOR COVID-19 INDICATES THAT RNA FROM SARS-CoV-2 WAS DETECTED, AND THE PATIENT IS INFECTED WITH THE VIRUS AND PRESUMED TO BE CONTAGIOUS. A NEGATIVE TEST RESULT FOR THIS TEST MEANS THAT SARS-CoV-2 RNA WAS NOT PRESENT IN THE SPECIMEN ABOVE THE LIMIT OF DETECTION. HOWEVER, A NEGATVIE RESULT DOES NOT RULE OUT COVID-19 AND SHOULD NOT BE USED THE SOLE BASIS FOR TREATMENT OR PATIENT MANAGEMENT DECISIONS. A NEGATIVE RESULT DOES NOT EXCLUDE THE POSSIBILITY OF COVID-19. WHEN DIAGNOSTIC TESTING IS NEGATIVE, THE POSSIBLILTY OF A FALSE NEGATIVE RESULT SHOULD BE CONSIDERED IN THE CONTEXT OF A PATIENT'S RECENT EXPOSURES AND THE PRESENCE OF CLINICAL SIGNS AND SYMPTOMS CONSISTENT WITH COVID-19. THE POSSIBILITY OF A FALSE NEGATIVE RESULT SHOULD ESPECIALLY BE CONSIDERED IF THE PATIENT'S RECENT EXPOSURES OR CLINICAL PRESENTATION INDICATE THAT COVID-19 IS LIKELY, AND DIAGNOSTIC TESTS FOR OTHER CAUSES OF ILLNESS (e.g., OTHER RESPIRATORY ILLNESS) ARE NEGATIVE. IF COVID-19 IS STILL SUSPECTED BASED ON EXPOSURE HISTORY TOGETHER WITH OTHER CLINICAL FINDINGS, RE-TESTED SHOULD BE CONSIDERED BY HEALTHCARE PROVIDERS IN CONSULTATION WITH PUBLIC HEALTH AUTHORITIES. Performed By: #### 2 [id number] #### [facility],[address] [place] [address] POCT GLUCOSEon 04-23-2018 Glucose mass conc 169 mg/dL High 65-99 [facility] Comment on above: Performed By: #### C SUPERVISOR FURNACE PROCESS ####[facility] [address] [place] [address] WOUND CULTURE-TISSUEon 04-23 WOUND CULTURE-TISSUE Specimen source XXX : TISSUE LEFT SUBTAYLER JOINT Performed at [address] [address]Bbcfqcv Cmnt XXX-Imp: NONE Performed at [address] [address]Fhwsgqazjkg observation: 1+ GRAM POSITIVE COCCI 1+ WBCBacteria identified: 2+ COAGULASE NEGATIVE STAPHYLOCOCCI (MRSE) Performed at [address] [address]: FINAL 04/25/2018 ANTIBIOTIC ALEX[place]RI[place]/INTERPORGANISM: 1 2+ COAGULASE NEGATIVE STAPHYLOCOCCI (MRSE) [place] TETRACYCLINE <=2 SUSCEPTIBLE TRIMETHOPRIM SULFAMETHOXAZOLE >2/38 RESISTANT VANCOMYCIN 1 SUSCEPTIBLE DAPTOMYCIN <=0.25 SUSCEPTIBLE Normal [facility] Comment on above: Performed By: #### W NDT ####[place] [address] WOUND CULTURE-TISSUE Specimen source XXX : TISSUE LEFT ANKLE JOINT Performed at [address] [address]Qziirat Cmnt XXX-Imp: NONE Performed at [address] [address]Qsybkoaycjm observation: 1+ GRAM POSITIVE COCCI NO WBC SEENBacteria identified: 1+ COAGULASE NEGATIVE STAPHYLOCOCCI (MRSE) Performed at [address] [address]: FINAL 04/25/2018 ANTIBIOTIC [place]/INTERPORGANISM: 1 1+ COAGULASE NEGATIVE STAPHYLOCOCCI (MRSE) [place] TETRACYCLINE <=2 SUSCEPTIBLE TRIMETHOPRIM SULFAMETHOXAZOLE >2/38 RESISTANT VANCOMYCIN 1 SUSCEPTIBLE DAPTOMYCIN <=0.25 SUSCEPTIBLE [facility] Comment on above: Performed By: #### W NDT ####[id number] [address] ANKLE LT WO CONTRASTon 04-21 ANKLE LT WO CONTRAST *FINAL *Date of Service: 04/20/2018 22:30 Adm #: [id number] Dr:RICCI Garcia Dr: RICCI WOODYASPROCEDURE: ANKLE LT WO CONTRAST - [facility] 3190REASON FOR EXAM: Charcot left ankle s/p fusion [...] Forefoot is not included on this examination. IMPRESSION:1. Limited examination given streak artifact throughout with tibiotalar and subtalar arthrodesis with retrograde IM nail placement. There is eburnation across the tibiotalar and subtalar joints with bone graft placement.2. No evidence for acute osseous abnormality with [...] reconstruction techniques. Original Interpreting Physician: RICCI CLANCY MDOriginal Transcribed by/Date: PSCB Apr 21 2018 11:59AOriginal Electronically Signed by/Date: RICCI CLANCY MD Apr 21 2018 11:59A Addendum Interpreting Physician: Addendum Transcribed by/Date: NO ADDENDUMAddendum Electronically Signed by/Date: Normal [facility] CBC with Diffon 04-21-2018 AB IMMATURE NEUT 0.02 K/UL Normal 0.0-0.1 [facility] Comment on above: Performed By: #### C BCD ####Main [address] [address] ABS BASO 0.01 K/UL Normal 0.00-0.[address] [facility] Comment on above: Performed By: #### C BCD ####[place] [address] [place] [address] ABS EOS 0.11 K/UL Normal 0-0.[address] [facility] Comment on above: Performed By: #### C BCD ####[place] [address] [place] [address] ABS NEUTROPHILS 4.47 K/UL Normal 1.8-7.7 [facility] Comment on above: Performed By: #### C BCD ####[place] [address] [place] [address] ABS.NEUT.CALCULATED Normal [facility] Comment on above: Result Comment: 4.47 Performed at [facility] [address] [place] [address] Performed By: #### C BCD ####[place] [address] [place] [address] Basophils/100 WBC Auto (Bld) 0.20 % Normal 0-[address] [facility] Comment on above: Performed By: #### C BCD ####[place] [address] [place] [address] DIFF TYPE AUTO DIFF Normal [facility] Comment on above: Performed By: #### C BCD ####[place] [address] [place] [address] Eosinophils/100 WBC Auto (Bld) 1.90 % Normal 0-[address] [facility] Comment on above: Performed By: #### C BCD ####[place] [address] [place] [address] Erythrocyte distribution width Auto Ratio (RBC) 15.8 % High 11.7-15.[address] [facility] Comment on above: Performed By: #### C BCD ####[place] [address] [place] [address] Hematocrit Auto Volume Fraction (Bld) 40.2 % Low 41-[address] [facility] Comment on above: Performed By: #### C BCD ####[facility] [place] [address] [place] [address] Hemoglobin mass conc (Bld) 12.4 g/dL Low 13.5-16.[address] [facility] Comment on above: Performed By: #### C BCD ####[facility] Zczy[address] [place] [address] IMMATURE NEUT % 0.30 % Normal 0.0-1.0 [facility] Comment on above: Performed By: #### C BCD ####[facility] Svpv[address] [place] [address] Lymphocytes Auto #/vol (Bld) 0.70 10*3/uL Low 1.2-3.[address] [facility] Comment on above: Performed By: #### C BCD ####[facility] Rfvo[address] [place] [address] Lymphocytes/100 WBC Auto (Bld) 12.00 % Low 20-[address] [facility] Comment on above: Performed By: #### C BCD ####[facility] Qoqj[address] [place] [address] MCH Auto Entitic mass (RBC) 28.2 pg Normal 26-[address] [facility] Comment on above: Performed By: #### C BCD ####[facility] Mttn[address] [place] [address] MCHC Auto mass conc (RBC) 30.8 % Low 31-[address] [facility] Comment on above: Performed By: #### C BCD ####[facility] Obbq[address] [place] [address] MCV Auto Entitic volume (RBC) 91.4 fL Normal 80-[address] [facility] Comment on above: Performed By: #### C BCD ####[facility] Pxuf[address] [place] [address] MEAN PLT VOL 10.8 CU Normal 7.0-12.[address] [facility] Comment on above: Performed By: #### C BCD ####[facility] Whix[address] [place] [address] Monocytes Auto #/vol (Bld) 0.50 10*3/uL Normal 0-0.[address] [facility] Comment on above: Performed By: #### C BCD ####[facility] Epkh[address] [place] [address] Monocytes/100 WBC Auto (Bld) 8.60 % High 0-[address] [facility] Comment on above: Performed By: #### C BCD ####[facility] Dsgu[address] [place] [address] Neutrophils/100 WBC Auto (Bld) 77.00 % High 50-[address] [facility] Comment on above: Performed By: #### C BCD ####[facility] F[address] [place] [address] NRBC'S 0 /100 WBC Normal [address] [facility] Comment on above: Performed By: #### C BCD ####[facility] Nrmk[address] [place] [address] Platelets Auto #/vol (Bld) 177 10*3/uL Normal 150-[address] [facility] Comment on above: Performed By: #### C BCD ####[facility] Pmos[address] [place] [address] RBC Auto #/vol (Bld) 4.40 M/UL Low 4.5-5.[address] [facility] Comment on above: Performed By: #### C BCD ####[facility] Mrfc[address] [place] [address] RDW-SD 52.9 FL Normal 37.0-54.[address] [facility] Comment on above: Performed By: #### C BCD ####[facility] Objg[address] [place] [address] WBC Auto #/vol (Bld) 5.8 10*3/uL Normal 4.5-11.0 [facility] Comment on above: Performed By: #### C BCD ####[facility] Azvq[address] [place] [address] COMPREHENSIVE METABOLIC PANE Johnny 04-21-2018 Albumin mass conc 3.2 g/dL Low 3.5-5.0 [facility] Comment on above: Performed By: #### C SUPERVISOR FURNACE PROCESS ####[facility] Dozy[address] [place] [address] Albumin/Globulin mass ratio 0.9 {ratio} Low 1.5-3.[address] [facility] Comment on above: Performed By: #### C SUPERVISOR FURNACE PROCESS ####[facility] Yiso[address] [place] [address] ALP enzyme act/vol 75 U/L Normal 35-125 [facility] Comment on above: Performed By: #### C SUPERVISOR FURNACE PROCESS ####[facility] Dwpl[address] [place] [address] ALT enzyme act/vol Normal 5-40 [facility] Comment on above: Result Comment: 6Per formed at [facility] [address] [place] [address] Performed By: #### C SUPERVISOR FURNACE PROCESS ####[facility] [id number] [place] [address] Anion gap 3 molar conc 11 mmol/L Normal 0-[address] [facility] Comment on above: Performed By: #### C SUPERVISOR FURNACE PROCESS ####[facility] Fpyy[address]75 [place] [address] AST enzyme act/vol 11 U/L Normal 5-40 [facility] Comment on above: Performed By: #### C SUPERVISOR FURNACE PROCESS ####[facility] Gjtd52462 [place] [address] Bilirubin mass conc 0.4 mg/dL Normal 0.1-1.[address] [facility] Comment on above: Performed By: #### C SUPERVISOR FURNACE PROCESS ####[facility] Ccxt[address]104 [place] [address] Calcium mass conc 8.7 mg/dL Normal 8.5-10.4 [facility] Comment on above: Performed By: #### C SUPERVISOR FURNACE PROCESS ####[facility] Ihwg[address]193 [place] [address] Chloride molar conc 99 mmol/L Normal 97-[address] [facility] Comment on above: Performed By: #### C SUPERVISOR FURNACE PROCESS ####[facility] Wyaa[address] [place] [address] CO2 molar conc 30 mmol/L Normal 24-31 [facility] Comment on above: Performed By: #### C SUPERVISOR FURNACE PROCESS ####[facility] Bgoh90521 [place] [address] Creatinine mass conc 1.0 mg/dL Normal 0.4-1.[address] [facility] Comment on above: Performed By: #### C SUPERVISOR FURNACE PROCESS ####[facility] Hjuv[address]90 [place] [address] Globulin Calculated mass conc (S) 3.6 g/dL Normal 1.9-3.[address] [facility] Comment on above: Performed By: #### C SUPERVISOR FURNACE PROCESS ####[facility] Uyry[address]35 [place] [address] Glucose mass conc 175 mg/dL High 65-99 [facility] Comment on above: Performed By: #### C SUPERVISOR FURNACE PROCESS ####[facility] Nqyf[address] [place] [address] Potassium molar conc 4.5 mmol/L Normal 3.4-5.[address] [facility] Comment on above: Performed By: #### C SUPERVISOR FURNACE PROCESS ####[facility] [id number] [place] [address] Protein mass conc 6.8 g/dL Normal 5.9-7.9 [facility] Comment on above: Performed By: #### C SUPERVISOR FURNACE PROCESS ####[facility] Kihi[address] [place] [address] Sodium molar conc 140 mmol/L Normal 133-145 [facility] Comment on above: Performed By: #### C SUPERVISOR FURNACE PROCESS ####[facility] Azfr93529 [place] [address] Urea nitrogen mass conc 24 mg/dL Normal 8-[address] [facility] Comment on above: Performed By: #### C SUPERVISOR FURNACE PROCESS ####[facility] Lova[address] [place] [address] Urea nitrogen/Creatinine mass ratio 24.0 RATIO High 8-[address] [facility] Comment on above: Performed By: #### C SUPERVISOR FURNACE PROCESS ####[facility] [id number] [place] [address] ANKLE LT 2 VIEWon 04-20-2018 Protein mass conc *FINAL Date of Service: 04/20/2018 15:19 Adm #: [id number] Dr:WANDER Garcia Dr: WANDER SOLOMONUPROCEDURE: ANKLE LT 2 VIEW - IXR [id number] FOR EXAM: REMOVAL OF HARDWARE LEFT ANKLE RESULT: Clinical Information: Hardware removal. Comparison: None. Fluoroscopy was provided four hardware removal.Total fluoroscopy time: 2 MIN 10 SECS, images: 6 SPOT, DAP: 12.51 MGY. There is external fixation hardware in the left ankle.The alignment is anatomic. Impression: Fluoroscopy for hardware removal. This report has been produced using speech recognition. Original Interpreting Physician: WANDER GLORIA M.D.Original Transcribed by/Date: PSCB Apr 20 2018 3:27POriginal Electronically Signed by/Date: WANDER GLORIA M.D. Apr 20 2018 3:27P Addendum Interpreting Physician: Addendum Transcribed by/Date: NO ADDENDUMAddendum Electronically Signed by/Date: Normal [facility] HEMOGLOBIN,HCTon 04-20-2018 Hematocrit Auto Volume Fraction (Bld) Normal 41-[address] [facility] Comment on above: Result Comment: 42.3 Performed at [facility] [address] [place] [address] Performed By: #### H H ####[address]ab[address] [place] [address] Hemoglobin mass conc (Bld) 12.9 g/dL Low 13.5-16.[address] [facility] Comment on above: Performed By: #### H H ####[address] [place] [address] POCT GLUCOSEon 04-20-2018 Glucose mass conc 191 mg/dL High 65-99 [facility] Comment on above: Performed By: #### P CGL ####[facility] [place] [address] Glucose mass conc 154 mg/dL High 65-99 [facility] Comment on above: Performed By: #### P CGL ####[facility] [place] [address] [facility] 04-20-20 18 [facility] Patient Name: SHEREE CAICEDO#: [id number] #[id number]:1: Left ankle joint2: Left subtalar jointGross Description1. Received fresh are two flat to irregular shaped pieces of softtissue and focal firm tissue measuring in aggregate 1.7 x 1.4 x 0.3 cm.The tissue is decalcified and submitted entirely in one cassette.2. Received fresh are two flat to irregular shaped pieces of singleton-grayfocally firm tissue measuring in aggregate 2.1 x 1.5 x 0.3 cm. Thetissue is decalcified and submitted entirely in one cassette.Microscopic DescriptionSlides examined; description omitted.Procedures/Addend aFinal Diagnosis1. LEFT ANKLE JOINT, BIOPSY:BONE AND CARTILAGE WITH INTERTRABECULAR FIBROSIS, DEGENERATIVECHANGESAND GRANULATION TISSUE.2. LEFT SUBTALAR JOINT, BIOPSY:BONE AND CARTILAGE WITH INTERTRABECULAR FIBROSIS, CHRONICINFLAMMATIONAND DEGENERATIVE CHANGES.Electronically Signed Out By Denise Goddard M.D. Normal [facility] Comment on above: Performed By: #### C SUPERVISOR FURNACE PROCESS ####[place] [address] [place] [address] CBC WITHOUT DIFFon 10-30-201 8 Erythrocyte distribution width Auto Ratio (RBC) 15.5 % High 11.7-15.[address] [facility] Comment on above: Performed By: #### C BCN ####[place] [address] [place] [address] Hematocrit Auto Volume Fraction (Bld) 45.1 % Normal 41-[address] [facility] Comment on above: Performed By: #### C BCN ####[place] [address] [place] [address] Hemoglobin mass conc (Bld) 14.2 g/dL Normal 13.5-16.[address] [facility] Comment on above: Performed By: #### C BCN ####[place] [address] [place] [address] MCH Auto Entitic mass (RBC) 28.9 pg Normal 26-[address] [facility] Comment on above: Performed By: #### C BCN ####[facility] Ecei67241 [facility] AvOhio[facility] [place] [address] MCHC Auto mass conc (RBC) 31.5 % Normal 31-[address] [facility] Comment on above: Performed By: #### C BCN ####[facility] [place] [place] [address] MCV Auto Entitic volume (RBC) 91.7 fL Normal 80-[address] [facility] Comment on above: Performed By: #### C BCN ####[facility] Zrfv[address] [place] [address] MEAN PLT VOL 10.7 CU Normal 7.0-12.[address] [facility] Comment on above: Performed By: #### C BCN ####[facility] Kdwc[address] [place] [address] NRBC'S Normal [address] [facility] Comment on above: Result Comment: 0Per formed at [facility] [address] [place] [address] Performed By: #### C BCN ####[facility] Lill[address] [place] [address] Platelets Auto #/vol (Bld) 192 10*3/uL Normal 150-[address] [facility] Comment on above: Performed By: #### C BCN ####[facility] Mbok[address] [place] [address] RBC Auto #/vol (Bld) 4.92 M/UL Normal 4.5-5.[address] [facility] Comment on above: Performed By: #### C BCN ####[facility] Dntt[address] [place] [address] RDW-SD 52.3 FL Normal 37.0-54.[address] [facility] Comment on above: Performed By: #### C BCN ####[facility] Upjv65167 [address] [place] [address] WBC Auto #/vol (Bld) 4.8 10*3/uL Normal 4.5-11.0 [facility] Comment on above: Performed By: #### C BCN ####[facility] Xcgu[address]16 [place] [address] COMPREHENSIVE METABOLIC PANE Johnny 04-17-2018 Albumin mass conc 3.6 g/dL Normal 3.5-5.0 [facility] Comment on above: Performed By: #### C SUPERVISOR FURNACE PROCESS ####[facility] Nlol[address] [place] [address] Albumin/Globulin mass ratio 0.9 {ratio} Low 1.5-3.[address] [facility] Comment on above: Performed By: #### C SUPERVISOR FURNACE PROCESS ####[facility] Neqm[address] [place] [address] ALP enzyme act/vol 83 U/L Normal 35-125 [facility] Comment on above: Performed By: #### C SUPERVISOR FURNACE PROCESS ####[facility] Iaqe[address] [place] [address] ALT enzyme act/vol 8 U/L Normal 5-40 [facility] Comment on above: Performed By: #### C SUPERVISOR FURNACE PROCESS ####[facility] Ajya[address] [place] [address] Anion gap 3 molar conc 8 mmol/L Normal 0-[address] [facility] Comment on above: Performed By: #### C SUPERVISOR FURNACE PROCESS ####[facility] Rvgl[address] [place] [address] AST enzyme act/vol 13 U/L Normal 5-40 [facility] Comment on above: Performed By: #### C SUPERVISOR FURNACE PROCESS ####[facility] Fzgb[address]458 [place] [address] Bilirubin mass conc 0.5 mg/dL Normal 0.1-1.[address] [facility] Comment on above: Performed By: #### C SUPERVISOR FURNACE PROCESS ####[facility] Nszq[address] [place] [address] Calcium mass conc 9.1 mg/dL Normal 8.5-10.4 [facility] Comment on above: Performed By: #### C SUPERVISOR FURNACE PROCESS ####[facility] Wbfm[address]4441 [place] [address] Chloride molar conc 101 mmol/L Normal 97-[address] [facility] Comment on above: Performed By: #### C SUPERVISOR FURNACE PROCESS ####[facility] Eouo[address] [place] [address] CO2 molar conc 32 mmol/L High 24-31 [facility] Comment on above: Performed By: #### C SUPERVISOR FURNACE PROCESS ####[facility] Nmcd[address]175 [place] [address] Creatinine mass conc 0.9 mg/dL Normal 0.4-1.[address] [facility] Comment on above: Performed By: #### C SUPERVISOR FURNACE PROCESS ####[facility] Yyba35918 [facility] AvOhio[facility] [place] [place] [address] GFR/1.73 sq M.predicted MDRD vol rate/area Normal [facility] Comment on above: Result Comment: 90GF R ml/min/1.73m2 Stage -----90 160-89 230-59 315-29 4<15 5For -Americans, multiply EGFR result by 1.210Calculation not validated for patients under 18 years of age.Performed at [facility] [address] [address] Performed By: #### C SUPERVISOR FURNACE PROCESS ####[place] [id number] [facility] AvOhio[facility] [place] [address] Globulin Calculated mass conc (S) 4.0 g/dL High 1.9-3.[address] [facility] Comment on above: Performed By: #### C SUPERVISOR FURNACE PROCESS ####[facility] Pvkh[address]78 [place] [address] Glucose mass conc 143 mg/dL High 65-99 [facility] Comment on above: Performed By: #### C SUPERVISOR FURNACE PROCESS ####[facility] Cjmw[address]76 [place] [address] Potassium molar conc 5.0 mmol/L Normal 3.4-5.[address] [facility] Comment on above: Performed By: #### C SUPERVISOR FURNACE PROCESS ####[facility] Npzr[address]673 [place] [address] Protein mass conc 7.6 g/dL Normal 5.9-7.9 [facility] Comment on above: Performed By: #### C SUPERVISOR FURNACE PROCESS ####[facility] Uyky[address] [place] [address] Sodium molar conc 141 mmol/L Normal 133-145 [facility] Comment on above: Performed By: #### C SUPERVISOR FURNACE PROCESS ####[facility] Ycwo[address]220 [place] [address] Urea nitrogen mass conc 26 mg/dL High 8-[address] [facility] Comment on above: Performed By: #### C SUPERVISOR FURNACE PROCESS ####[facility] Drce[address]262 [place] [address] Urea nitrogen/Creatinine mass ratio 28.9 RATIO High 8-[address] [facility] Comment on above: Performed By: #### C SUPERVISOR FURNACE PROCESS ####Main [place] [id number] [place] [address] Vital Signs Date Time Vital Sign Value Performing Clinician Eliot blake 09-08-2022 07:23-0400 Blood Pressure Cuff Size JEREMIE GRIMM MD [address] [place] [address] 09-08-2022 07:23-0400 Blood Pressure Location JEREMIE GRIMM MD [address] [place] [address] 09-08-2022 07:23-0400 Blood Pressure Method JEREMIE GRIMM MD [address] [place] [address] 09-08-2022 07:23-0400 Body height 177.8 cm JEREMIE GRIMM MD [address] [place] [address] 09-08-2022 07:23-0400 Body temperature 98.6 [degF] JEREMIE GRIMM MD [address] [place] [address] 09-08-2022 07:23-0400 Body weight 155 kg JEREMIE GRIMM MD [address] [place] [address] 09-08-2022 07:23-0400 Body weight 49.03 kg/m2 JEREMIE GRIMM MD [address] [place] [address] 09-08-2022 07:23-0400 Diastolic Blood Pressure Non-Invasive 67 1 JEREMIE GRIMM MD [address] [place] [address] 09-08-2022 07:23-0400 Heart rate 73 /min JEREMIE GRIMM MD [address] [place] [address] 09-08-2022 07:23-0400 Respiratory rate 20 /min JEREMIE GRIMM MD [address] [place] [address] 09-08-2022 07:23-0400 Systolic Blood Pressure Non-Invasive 145 1 JEREMIE GRIMM MD [facility] 08-19-2022 18:31-0500 Body temperature 97.88 [degF] DR WILY BENITEZ MD [facility] 08-19-2022 18:31-0500 Diastolic Blood Pressure Non-Invasive [address] WILY BENITEZ MD [facility] 08-19-2022 18:31-0500 Heart rate 59 /min DR WILY BENITEZ MD [facility] 08-19-2022 18:31-0500 Reason For Taking VItal Signs DR WILY BENITEZ MD [facility] 08-19-2022 18:31-0500 Respiratory rate 18 /min DR WILY BENITEZ MD [facility] 08-19-2022 18:31-0500 Systolic Blood Pressure Non-Invasive [address] WILY BENITEZ MD [facility] 08-19-2022 18:20-0500 Heart rate 60 /min DR WILY BENITEZ MD [facility] 08-19-2022 17:05-0500 Diastolic Blood Pressure Non-Invasive [address] WILY BENITEZ MD [facility] 08-19-2022 17:05-0500 Heart rate 58 /min DR WILY BENITEZ MD [facility] 08-19-2022 17:05-0500 Systolic Blood Pressure Non-Invasive [address] WILY BENITEZ MD [facility] 08-19-2022 16:32-0500 Diastolic Blood Pressure Non-Invasive [address] WILY BENITEZ MD [facility] 08-19-2022 16:32-0500 Systolic Blood Pressure Non-Invasive [address] WILY BENITEZ MD [address] 08-19-2022 15:19-0500 Body temperature 96.8 [degF] DR WILY BENITEZ MD [address] [place] [address] 08-19-2022 15:19-0500 Reason For Taking VItal Signs DR WILY BENITEZ MD [address] [place] [address] 08-19-2022 15:19-0500 Respiratory rate 20 /min DR WILY BENITEZ MD [address] [place] [address] 08-19-2022 14:42-0500 Respiratory rate 20 /min DR WILY BENITEZ MD [address] [place] [address] 08-19-2022 11:21-[address] Cuff Size DR WILY BENITEZ MD [address] [place] [address] 08-19-2022 11:21-[address] WILY BENITEZ MD [address] [place] [address] 08-19-2022 11:21-[address] WILY BENITEZ MD [address] 08-19-2022 11:21-0500 Body temperature 97.34 [degF] DR WILY BENITEZ MD [address] [place] [address] 08-19-2022 11:21-0500 Reason For Taking VItal Signs DR WILY BENITEZ MD [address] 08-19-2022 08:17-0500 Body temperature 97.34 [degF] DR WILY BENITEZ MD [address] [place] [address] 08-19-2022 04:19-0500 Body temperature 98.06 [degF] DR WILY BENITEZ MD [address] 08-18-2022 23:53-0500 Mean blood pressure 85 mm[Hg] DR WILY BENITEZ MD [address] [place] [address] 08-18-2022 18:11-0500 Body temperature 98.06 [degF] DR WILY BENITEZ MD [address] 08-18-2022 18:11-0500 Body weight 165.[address] WILY BENITEZ MD [address] [place] [address] 08-18-2022 14:41-0500 Body weight 167.[address] WILY BENITEZ MD [address] [place] [address] 08-18-2022 11:22-0500 Mean blood pressure 86 mm[Hg] DR WILY BENITEZ MD [address] [place] [address] 08-18-2022 11:16-0500 Blood Pressure Cuff Size DR WILY BENITEZ MD [address] [place] [address] 08-18-2022 11:16-[address] WILY BENITEZ MD [address] [place] [address] 08-18-2022 11:16-0500 Body temperature 97.52 [degF] DR WILY BENITEZ MD [address] 08-18-2022 11:16-0500 Mean blood pressure 86 mm[Hg] DR WILY BENITEZ MD [address] [place] [address] 08-18-2022 08:36-0500 Body temperature 97.52 [degF] DR WILY BENITEZ MD [address] [place] [address] 08-18-2022 06:19-0500 Body temperature 97.34 [degF] DR WILY BENITEZ MD [address] [place] [address] 08-17-2022 07:40-[address] WILY BENITEZ MD [address] 08-17-2022 07:40-[address] WILY BENITEZ MD [address] [place] [address] 08-17-2022 05:32-0500 SaO2% (BldA) [Mass fraction] 94.1 % DR WILY BENITEZ MD [facility] 08-17-2022 04:23-[address] WILY BENITEZ MD [address] [place] [address] 08-16-2022 12:38-0500 Body weight [address] WILY BENITEZ MD [address] [place] [address] 08-15-2022 07:07-[address] Cuff Size DR WILY BENITEZ MD [address] [place] [address] 08-12-2022 13:01-0500 SaO2% (BldA) [Mass fraction] 93.6 % DR WILY BENITEZ MD [facility] 08-11-2022 08:12-0500 Heart rate 71 /min DR WILY BENITEZ MD [address] [place] [address] 08-10-2022 11:08-0500 Heart rate 71 /min DR WILY BENITEZ MD [address] [place] [address] 08-08-2022 08:44-0500 Heart rate 69 /min DR WILY BENITEZ MD [address] [place] [address] 08-07-2022 13:30-0500 SaO2% (BldA) [Mass fraction] 96.9 % DR WILY BENITEZ MD [facility] 08-07-2022 05:44-0500 SaO2% (BldA) [Mass fraction] 99.9 % DR WILY BENITEZ MD [facility] 08-06-2022 17:47-0500 Body height 177.[address] WILY BENITEZ MD [address] [place] [address] 08-06-2022 17:47-0500 Body weight 54.03 kg/m2 DR WILY BENITEZ MD [facility] 08-06-2022 11:04-0500 SaO2% (BldA) [Mass fraction] 97.1 % DR WILY BENITEZ MD [facility] Chem SS Encounters Encounter Date Encounter Type Care Provider Facility Start: 07-11-2024 End: 07-11-2024 ambulatory Dawson Pretty Facility:[facility] Start: 05-20-2024 ambulatory Sofia Forest [facility] Start: 05-20-2024 End: 05-20-2024 ambulatory Chidi H [facility] [employer] 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 Facility:[facility] Start: 03-20-2024 End: 03-20-2024 ambulatory Dawson Pretty Facility:[facility] Start: 03-06-2024 ambulatory Dawson Pretty Facility:[facility] Start: 03-06-2024 ambulatory Sofia Forest Facility:[facility] Start: 03-06-2024 End: 03-09-2024 Evaluation and management of inpatient Dawson Pretty Facility:[facility] Start: 09-08-2022 End: 09-09-2022 ambulatory JEREMIE GRIMM MD Facility:[facility] Start: 09-08-2022 End: 09-08-2022 Patient encounter procedure JEREMIE GRIMM MD [facility] Start: 09-05-2022 ambulatory HILTON OLVERA MD Faci lity:B Start: 08-06-2022 End: 08-19-2022 Evaluation and management of inpatient DR DAWSON OLSEN MD Facility:[facility] Start: 08-06-2022 End: 08-19-2022 Evaluation and management of inpatient DR WILY BENITEZ MD [facility] Start: 06-08-[address] BOZENA MANZANARES [facility] Start: 04-20-2018 End: 04-20-2018 Patient encounter procedure CROW DIOR Facility:UNKNOWN Start: 04-17-2018 Patient encounter procedure CROW DIOR Facility:[facility] Start: 12-26-2016 End: 12-27-2016 Ambulatory KAILYN ENRIQUEZ Facility:[facility] Start: 12-21-2016 End: 12-22-2016 Ambulatory DAWSON OLSEN Facility:[facility] Procedures Date Procedure Procedure Detail Performing Clinician Start: 01-27-[address] WILY BENITEZ MD Start: 01-22-[address] LIBBY BENITEZ MD Comment on above: Extremely technicall y difficult study. EF cannot be accurately estimated even on definity images Start: 12-01-[address] LIBYB BENITEZ MD Comment on above: EF of 35 to 40%, aor tic valve possible bicuspid, 1+ regurgitation, ascending aorta moderate dilated up to 5.5 cm Start: 06-03-[address] WILY BENITEZ MD Comment on above: LEFT ANKLE LATERAL R ECONSTRUCTION/FUSION Appendectomy DR WILY MONTANA MD Entire nail of toe ( body structure) DR WILY BENITEZ MD Comment on above: Right foot Entire nail of toe ( body structure) DR WILY BENITEZ MD Comment on above: Left foot Left inguinal hernia (disorder) DR WILY BENITEZ MD Structure of wisdom tooth (body structure) DR WILY BENITEZ MD Tonsillectomy DR WILY KONG MD Immunizations Immunization Date Immunization Notes Care Provider Fa [facility] 08-08-2022 influenza, high-dose , quadrivalent DR WILY BENITEZ MD [facility] 05-26-2018 influenza, injectabl e, quadrivalent, preservative free; Translations: [Fluarix Quadrivalent ] DR WILY BENITEZ MD [facility] Payers Date Payer Category Payer Unknown 0 2022 Self-pay 1955 Unknown [id number] 2.16.8 [id number] 1955 Unknown [id number] 2.16.8 [id number] 1955 Unknown [id number] 2.16.8 [id number] 1955 Unknown [id number] 2.16.8 [id number] 1955 Unknown [id number] 2.16.8 [id number] Unknown [id number] 2.16.8 [id number] Unknown [id number] 2.16.8 [id number] Unknown [id number] 2.16.8 [id number] Unknown [id number] 2.16.8 [id number] Unknown [id number] 2.16.8 [id number] Unknown [id number] 2.16.8 [id number] Unknown [id number] 2.16.8 [id number] Unknown [id number] 2.16.8 [id number] Unknown [id number] 2.16.8 [id number] Unknown [id number] 2.16.8 [id number] Unknown [id number] 2.16.8 [id number] Social History Date Type Detail Facility Start: 01-06-2021 Tobacco smoking status Never s moked tobacco (finding) [facility] Sex Assigned At Male [facility] Functional Status Date Assessment Result Facility 09-08-2022 [facility] Functional Status Room located near [facility] 08-19-2022 Functional Status [facility] 08-19-2022 Functional Status Supervision [facility] 08-19-2022 Functional Status [facility] 08-18-2022 Functional Status [facility] 08-18-2022 Functional Status [facility] 08-18[facility] Status Hospital bed [facility] 08-17-2022 Functional Status [facility] 08-17-2022 Functional Status [facility] 08-17-2022 Functional Status Bed Bath One assist, Morales pervision [facility] 08-15-2022 Functional Status Lunch Percent 100 [facility] 08-15-2022 Functional Status Skin moisturiz er, CHG bath [facility] 08-14-2022 Functional Status [facility] [facility]22 Functional Status Roller walker [facility] 08-14-2022 Functional Status Done [facility] 08-13-2022 Functional Status [facility] 08-13-2022 Functional Status [facility] 08-12-2022 Functional Status Mod I [facility] 08-12-2022 Functional Status Ambulation Patient Effo rt Good [facility] 08-11-2022 Functional Status elevated on pillows [facility] 08-10-2022 Functional Status [facility] 08-08-2022 Functional Status Multilevel home [facility] 08-07-2022 Functional Status [facility] 08-06-2022 Functional Status N/A [facility] Mental Status Date Assessment Result Facility 09-08-2022 Mental Status Orientation Oriented x 4 [facility] 08-19-2022 Mental Status Orientation Oriented x 4 [facility] 08-19-2022 Mental Status [facility] 08-19-[facility]22 [facility] 08-18-[facility]22 Mental Status Orientation Assessment Мария nted x 4 [facility] 08-18-2022 Mental Status [facility] 08-16-2022 Mental Status [facility] Clinical Notes 08-06-2022 to 03-09-2024 Note Date & Type Note Facility 03-09-2024 Note [facility] Medical Records Department [address] [place] [address] Discharge Summary 03/09/24 1232 MR#: [id number] Acct: [id number] Name: SHEREE MUNIZ Rep #: [id number] : 1955 68 From: Elver Bradley DO PCP: Dr. Dawson Olsen MD Status:ADM IN Location: [place] [address] Providers Date of Admission: 03/06/24 Date of Discharge: 03/09/24 Primary Care Physician: Dr. Dawson Olsen DO Consultations 03/07/24 07:58 Consult: Cardiology Routine Consulting Provider: Sofia Garg Reason for Consult: new HFrEF EMERGENT Consult: No MD Notified: Yes Date Notified: 03/07/24 Time Notified: 08:33 Method of Notification: Text Reason For Visit: CHF EXACERBATION W/ACUTE ON CHRONIC HYPOXIA Diagnosis Discharge Diagnosis (1) CHF exacerbation: Status: Chronic Code(s): I50.9 - Heart failure, unspecified (2) Acute on chronic respiratory failure with hypoxia and hypercapnia: Status: Chronic Code(s): J96.21 - Acute and chronic respiratory failure with hypoxia; J96.22 - Acute and chronic respiratory failure with hypercapnia (3) Acute kidney injury superimposed on chronic kidney disease: Status: Chronic Code(s): N17.9 - Acute kidney failure, unspecified; N18.9 - Chronic kidney disease, unspecified Medications at Discharge Home Medications glipizide 5 mg tablet 5 mg PO DAILY diabetes 07/18/18 aspirin 81 mg capsule 81 mg PO DAILY preventative 03/06/24 insulin aspart U-100 5 unit subcut DAILY 03/06/24 insulin human U-100 NPH-regulr 70-30 mix 100 unit/mL subcutaneous susp (Humulin 70/30 U-100 Insulin) 5 unit subcut BID diabetes 03/06/24 bumetanide 2 mg tablet 2 mg PO BID water pill 30 days #60 tabs 03/09/24 carvedilol 6.25 mg tablet 6.25 mg PO BID 30 days #60 tabs 03/09/24 empagliflozin 10 mg tablet (Jardiance) 10 mg PO DAILY 30 days #30 tabs 03/09/24 lisinopril 5 mg tablet 5 mg PO BID 30 days #60 tabs 03/09/24 spironolactone 25 mg tablet 25 mg PO DAILY 30 days #30 tabs 03/09/24 Hospital Course Operations None Procedures EKG, Transthoracic echo and - (Chest x-ray) Summary of Care Provided Minutes Spent on Discharge: 35 Hospital Course: Patient is a 68-year-old male who presented to [facility] ED on 03/06/2024 with worsening shortness of breath. Hospital course as noted below. Patient discharged home with home health care in stable condition on 03/09. 1. CHF exacerbation with acute on chronic hypoxic and hypercapnic respiratory failure ??? Cardiology followed. Presentation consistent with CHF exacerbation. Chest x-ray showed vascular congestion consistent with heart failure. BNP 1794. ABG in ED showed pH 7.32, pCO2 68, pO2 117 on BiPAP. Was initially thought that last cardiac workup was in 2016. However, was able to obtain records from [facility] on 03/07. Patient was hospitalized there in August 2022 with a heart failure exacerbation. Echo then showed EF 25 to 30%, severe diffuse hypokinesis, and grade 2 diastolic dysfunction. He was discharged on IV Bumex 2 mg 3 times daily at that time and was following with a cook night there until about a year ago. Notably was on oxygen 4 to 5 years ago and self restarted on 5 L supplemental oxygen about 1 month prior to this admission. Repeat echo on 03/06 showed EF 35%, severe generalized hypokinesis of LV and moderate to severe LV concentric hypertrophy. Started on IV Bumex on admission with improvement. Per cardiology, transitioned to IV Lasix 80 mg twice daily on 03/07 and started on Coreg, empagliflozin, lisinopril and spironolactone. Good volume removal on IV Lasix, de-escalated to p.o. Bumex 2 mg twice daily on day of discharge. Required 5 L nasal cannula of supplemental oxygen on discharge, prescription sent. Wanted to establish with our cardiology group and will see them in the office in the next 1 to 2 weeks. 2. Suspected mild elevated serum creatinine on CKD stage III; history of severe BRYANNA requiring hemodialysis ??? Creatinine 1.74 on admit. Reviewed [facility] from August 2022 and patient had acute on chronic kidney failure secondary to CHF exacerbation. He required hemodialysis during that hospitalization and for a week after hospitalization but was then transitioned off. Baseline creatinine unclear. Improved to creatinine 1.62 on hospital day 2 with IV diuresis and reports good urine output. Suspect patient is close to his baseline at this time. Creatinine stable during treatment of CHF as noted above. 3. Mild acute debility ??? PT/OT/case management followed. Lives at home with and reports decent functional status at baseline. Does use motorized wheelchair to get around most of the time. Stable for discharge home with home health care on 03/09. Chronic medical conditions: ??? Morbid obesity: BMI 50 on admit. Complicated hospital course, care and prognosis. ??? ANDRADE: Continue home B (more content not included)... [facility] 09-12-2022 Note ORIGINAL PROCEDURE: Removal of cuffed tunneled catheter CLINICAL STATEMENT: BRYANNA resolved, no longer requires hemodialysis CAMPUS MONITOR: Suzette Flores PA-C CATHETER LOCATION: Right chest CATHETER TYPE: Hemodialysis catheter The procedure, risks, and alternatives, were discussed and all questions were answered. Written informed consent obtained. Accompanying paperwork was verified for accuracy. Directed history and physical exam performed prior to the procedure. Medication reconciliation performed by nursing personnel. Procedure was performed using a cap, sterile gown, sterile gloves, sterile towels, hand hygiene and hospital approved cutaneous antisepsis. The patient was positioned supine in bed and prepped and draped in usual sterile fashion. A critical pause was performed with assisting personnel just prior to the procedure with the patient's identity confirmed using 2 identifiers, confirming site and side. 2% lidocaine was used for local anesthesia. The cuff was freed from the surrounding tissue utilizing blunt dissection. The catheter was removed in its entirety without difficulty. Pressure was held at the venotomy for approximately five minutes. Bacitracin ointment on a sterile dressing was applied at the skin entry site. COMPLICATIONS: None EBL: Minimal PATIENT CONDITION: Stable, unchanged. IMPRESSION: Successful removal of cuffed tunneled hemodialysis catheter. This procedure was performed by Suzette Flores PA-C Interpreted by: Shamika Dykes MD Preliminary Report By: Suzette Flores PA-C Electronically signed By Shamika Dykes MD Dictated Date: 09/09/2022 12:14:18 PM Prelim Date: 09/09/2022 12:15:44 PM Sign Date: 09/12/2022 7:11:38 PM Ordering Provider: JEREMIE GRIMM [facility] (MD) 09-08-2022 Evaluation + Plan note Extrac jeff from: Title:IR pre procedure H&P Author:NELY GIL PA-C Date:09/08/22 IR PREPROCEDURE H&P UPDATE IF A HISTORY AND PHYSICAL EXAMINATION HAS BEEN COMPLETED PRIOR TO ADMISSION TO THE HOSPITAL, AN UPDATED EXAMINATION MUST BE COMPLETED AND DOCUMENTED WITHIN 24 HOURS AFTER ADMISSION OR REGISTRATION BUT BEFORE A SURGICAL PROCEDURE. I have examined the patient, reviewed the H&P, and there are no changes unless noted below: _ The most recent H&P/Office Note has been performed on 08/19/2022 and can be found on paper, which has been scanned into the [facility] PACS/RIS system. _ Future Appointments Appointment Date:09/20/2022 09:00:00 AM Scheduled Provider: Location:[facility] Appointment Type:CV OV CHF Appointment Date:10/14/2022 11:15:00 AM Scheduled Provider: Location:[facility] Appointment Type:CT Chest w/o Contrast Future Scheduled Tests Laboratory* Basic Metabolic Panel 12/27/21 * Complete Blood Count 12/27/21 Radiology* CT Angiography Chest w/ Contrast 12/07/21 * CT Thorax w/o Contrast 10/14/22 [facility] 03-23-2023 Note* Herminia Ott Broth Mixer: SIGN, AUTHOR, PERFORM Event Display: IR Procedure Record Authored Date: [id number] IR Procedure Record Summary Primary Physician: SUZETTE FLORES PA-C Finalized Date/Time: 09/08/22 09:34:24 Pt. Name: SHEREE MUNIZ Gillian Kim/Sex: 1955 Male Med Rec #: [id number] Physician: Financial #: [id number] Pt. Type: O Room/Bed: / Admit/Disch: 09/08/22 07:08:00 - Institution: Allergies identified in patient's electronic medical record at time of printing on 09/08/22 Entry 1 Substance NKA Reaction Type Allergy Last Modified By: Kathryn Schaefer RN 05/24/16 14:12:02 Case Attendance- IR Entry 1 Entry 2 Case Attendee SUZETTE FLORES Terra L PA-C Broth Mixer Role Performed Primary Surgeon Circulating Technologist Details Time In 09/08/22 08:05:00 09/08/22 08:05:00 Time Out 09/08/22 08:15:00 09/08/22 08:15:00 Procedure/Preference IR Tunneled Catheter IR Tunneled Catheter Card Removal W/O Pump SN Removal W/O Pump SN Last Modified By: Herminia Ott Terra L Broth Mixer 09/08/22 Broth Mixer 09/08/22 09:06:11 09:06:11 Radiology Procedures- IR Entry 1 Procedure/Preference IR Tunneled Catheter Actual Procedure IR TUNNELED CATHETER Card Removal W/O Pump SN REMOVAL W/O PUMP SN Primary Procedure Yes Primary Surgeon SUZETTE FLORES PA-C Anesthesia/Sedation None Type Additional Procedure Times Start 09/08/22 08:09:00 Stop 09/08/22 08:15:00 Specialty Service SN Radiology Procedure EBL 1 mL Last Modified By: Herminia Ott Broth Mixer 09/08/22 09:06:58 Radiology Procedure Details - IR Entry 1 Radiology Sedation Case Times Sedation Total Time 0 Radiology - Fluid/Drainage Radiology Contrast Contrast Used? No Radiology Flouroscopy Fluoroscopy Used? No Fluoro Time 0 Radiology Local Local Used? No Radiology Procedure Site Site/Location right chest Site Condition No complications Dressing Type Bioclusive 4 X 5, Gauze Technologist Notes perm cath removal sponge 4 X 4 Last Modified By: Herminia Ott Broth Mixer 09/08/22 09:13:56 General Case Data - IR Entry 1 Case Information Room IR 16 Case Level IR Level 2 Wound Class None Specialty SN Radiology Procedure ASA Class None Diagnosis Preop Diagnosis acute renal failure Postop Same As Preop Yes Postop Diagnosis acute renal failure Last Modified By: Herminia Ott [facility] 09/08/22 09:06:45 Procedure Case Times- IR Entry 1 Patient In Procedure Patient In OR 09/08/22 08:05:00 Patient Out of OR 09/08/22 08:15:00 Procedure Start/Stop Procedure Start Time 09/08/22 08:09:00 Procedure Stop Time 09/08/22 08:15:00 Last Modified By: Herminia Ott [facility] 09/08/22 09:04:10 Immediate Post Procedure Note - IR Entry 1 Immediate Post Yes Findings Right chest tunneled HD Procedure Note cath removal, no lido displayed for Physician to review Closure Technique Closure Technique Other than Primary Last Modified By: Herminia Ott [facility] 09/08/22 09:34:22 Immediate Post Procedure Note - IR Signed By: SUZETTE FLORES-C 09/08/22 09:33 Allergy Information- IR Entry 1 Allergies Reviewed? Yes Allergies Reviewed Medical Record With Last Modified By: Herminia Ott [facility] 09/08/22 09:02:51 Radiology Protocols/Time Out- IR Entry 1 Preprocedure Clinician Verifies Correct patient ID When Clinically Confirmation of correct using name & date Indicated side(s) and site(s), or MRN, Accurate Correct diagnostic and procedure, complete radiology tests Informed Consent, H & P available, Required update immediately blood products, prior to procedure, if implants, devices applicable and/or special equipment available OR/Procedure Room/Bedside Time 09/08/22 08:05:00 Clinician Verifies Correct patient identity including EMR & records using name and date or medical record number, Accurate procedure consent form, Correct patient position, Necessary equipment is available, Anticipated non-routine events with surgical team (case duration, estimated blood loss, patient specific concerns)., Brito patient factors for recovery and management identified with surgical team. When Applicable Confirmation correct Team Members SUZETTE FLORES side and site marked, Present for Time Out PA-C Relevant images and results are properly labeled and appropriately displayed, Alcohol based prep dry Instrument Sterility Team Members SUZETTE FLORES Verifying Sterility PA-C Procedure IR Tunneled Catheter Removal W/O Pump SN Last Modified By: Herminia Ott Tech 09/08/22 09:04:51 Skin Prep- IR Entry 1 Procedure IR Tunneled Catheter Removal W/O Pump SN Skin Prep Prep Area Chest Side Right By SUZETTE FLORES Prep Agents Chloraprep PA-C Hair Removal Method N/A Last Modified By: Herminia Ott Tech 09/08/22 09:05:14 Patient Positioning- IR Entry 1 Procedure IR Tunneled Catheter Body Position OP Supine Removal W/O Pump SN Feet Uncrossed? Yes Pressure Points Yes Checked Last Modified By: Herminia Ott Tech 09/08/22 09:05:33 Radiology Procedure Plan - IR Entry 1 Radiology - Nursing Care Plan Radiology - Action Plan Action Plan - Patient demonstrates Outcome Statement knowledge of the expected reseponses to the invasive procedure, Patient's value system, lifestyle, ethnicity, and culture are considered, respected, and incorporated in the perioperative plan of care., Patient is free from signs and symptoms of infection., Patient is free from signs and symptoms of injury related to positioning., Patient is free from signs and symptoms of chemical injury., Patient receives appropriate medication(s), safely administered during the perioperative period., Patient is free from signs and symptoms of injury caused by extraneous objects (equipment, instrumentation, sponges, or sharps)., Patient is free from signs and symptoms of electrical injury. Outcomes Met? Yes Patient Safety Manager Herminia Ott Broth Mixer Procedure Plan Last Modified By: Herminia Ott 09/08/22 09:06:29 Case Comments <None> Finalized By: Herminia Ott Document Signatures Signed By: Herminia Ott 09/08/22 09:34 [facility] 03-23-2023 Hospital Discharge instructions Patient Education 09/08/2022 08:19:43 Radiology- Tunnel Catheter Removal 10/02/2019 (CUSTOM) [place] Tunnel Catheter Removal Discharge Instructions Interventional Radiology [facility] [address] [place] [address] DIET: ?Resume your regular diet as tolerated. ACTIVITY: ?Rest for the remainder of the day. You may resume your normal activity tomorrow. ?You may bathe, but wait 3 days until the dressing is removed to shower. ?Do not soak or submerge site until a scab forms. ?No swimming or hot tubs. ?No heavy lifting, pushing, or straining. DRESSING: ?Check the site for bleeding. Apply pressure to the site if bleeding excessively and call your physician. ?The dressing can be removed after 3 days. PAIN CONTROL: ?The removal site may be sore for 1 to 2 days following the procedure. ?Dolv-shc-qnercuh pain medication should be used for pain or discomfort. Please check with the physician who ordered this procedure for you for their specific recommendations. ?If your pain is not relieved or becomes more severe, notify the physician who sent you for this procedure. MEDICATION: ?Please resume home medications today as scheduled. WHEN TO SEEK MEDICAL CARE: You should contact your physician or visit your local emergency room promptly if any of the following occur: Lightheadedness, dizziness, or fainting Infection Rarely, infection at the site where the catheter was removed may occur. Signs and symptoms include a fever greater than 101 degrees, chills, redness, warmth, swelling, increased pain, bleeding or pusfrom the puncture site. Follow Up Care 09/02/2022 13:12:09 With:JEREMIE GRIMM MD, [facility] Address: [facility] [address] [place] [address]- When: Unknown Comments:Follow-up as scheduled [facility] 03-23-2023 Note IR Procedure Record Summary Primary Physician: SUZETTE FLORES PA-C Finalized Date/Time: 09/08/22 09:34:24 Pt. Name: SHEREE MUNIZ/Sex: 1955 Male Med Rec #: [id number] Physician: Financial #: [id number] Pt. Type: O Room/Bed: / Admit/Disch: 09/08/22 07:08:00 - Institution: Allergies identified in patient's electronic medical record at time of printing on 09/08/22 Entry 1 Substance NKA Reaction Type Allergy Last Modified By: Kathryn Schaefer RN 05/24/16 14:12:02 Case Attendance- IR Entry 1 Entry 2 Case Attendee SUZETTE FLORES Terra L PA-C Broth Mixer Role Performed Primary Surgeon Circulating Technologist Details Time In 09/08/22 08:05:00 09/08/22 08:05:00 Time Out 09/08/22 08:15:00 09/08/22 08:15:00 Procedure/Preference IR Tunneled Catheter IR Tunneled Catheter Card Removal W/O Pump SN Removal W/O Pump SN Last Modified By: Herminia Ott Terra L Broth Mixer 09/08/22 Broth Mixer 09/08/22 09:06:11 09:06:11 Radiology Procedures- IR Entry 1 Procedure/Preference IR Tunneled Catheter Actual Procedure IR TUNNELED CATHETER Card Removal W/O Pump SN REMOVAL W/O PUMP SN Primary Procedure Yes Primary Surgeon SUZETTE FLORES PA-C Anesthesia/Sedation None Type Additional Procedure Times Start 09/08/22 08:09:00 Stop 09/08/22 08:15:00 Specialty Service SN Radiology Procedure EBL 1 mL Last Modified By: Herminia Ott Broth Mixer 09/08/22 09:06:58 Radiology Procedure Details - IR Entry 1 Radiology Sedation Case Times Sedation Total Time 0 Radiology - Fluid/Drainage Radiology Contrast Contrast Used? No Radiology Flouroscopy Fluoroscopy Used? No Fluoro Time 0 Radiology Local Local Used? No Radiology Procedure Site Site/Location right chest Site Condition No complications Dressing Type Bioclusive 4 X 5, Gauze Technologist Notes perm cath removal sponge 4 X 4 Last Modified By: Herminia Ott Broth Mixer 09/08/22 09:13:56 General Case Data - IR Entry 1 Case Information Room IR 16 Case Level IR Level 2 Wound Class None Specialty SN Radiology Procedure ASA Class None Diagnosis Preop Diagnosis acute renal failure Postop Same As Preop Yes Postop Diagnosis acute renal failure Last Modified By: Herminia Ott Broth Mixer 09/08/22 09:06:45 Procedure Case Times- IR Entry 1 Patient In Procedure Patient In OR 09/08/22 08:05:00 Patient Out of OR 09/08/22 08:15:00 Procedure Start/Stop Procedure Start Time 09/08/22 08:09:00 Procedure Stop Time 09/08/22 08:15:00 Last Modified By: Herminia Ott [facility] 09/08/22 09:04:10 Immediate Post Procedure Note - IR Entry 1 Immediate Post Yes Findings Right chest tunneled HD Procedure Note cath removal, no lido displayed for Physician to review Closure Technique Closure Technique Other than Primary Last Modified By: Herminia Ott [facility] 09/08/22 09:34:22 Immediate Post Procedure Note - IR Signed By: SUZETTE FLORES PA-C 09/08/22 09:33 Allergy Information- IR Entry 1 Allergies Reviewed? Yes Allergies Reviewed Medical Record With Last Modified By: Herminia Ott [facility] 09/08/22 09:02:51 Radiology Protocols/Time Out- IR Entry 1 Preprocedure Clinician Verifies Correct patient ID When Clinically Confirmation of correct using name & date Indicated side(s) and site(s), or MRN, Accurate Correct diagnostic and procedure, complete radiology tests Informed Consent, H & P available, Required update immediately blood products, prior to procedure, if implants, devices applicable and/or special equipment available OR/Procedure Room/Bedside Time 09/08/22 08:05:00 Clinician Verifies Correct patient identity including EMR & records using name and date or medical record number, Accurate procedure consent form, Correct patient position, Necessary equipment is available, Anticipated non-routine events with surgical team (case duration, estimated blood loss, patient specific concerns)., Brito patient factors for recovery and management identified with surgical team. When Applicable Confirmation correct Team Members SUZETTE FLORES side and site marked, Present for Time Out PA-C Relevant images and results are properly labeled and appropriately displayed, Alcohol based prep dry Instrument Sterility Team Members SUZETTE FLORES Verifying Sterility PA-C Procedure IR Tunneled Catheter Removal W/O Pump SN Last Modified By: Herminia Ott [facility] 09/08/22 09:04:51 Skin Prep- IR Entry 1 Procedure IR Tunneled Catheter Removal W/O Pump SN Skin Prep Prep Area Chest Side Right By SUZETTE FLORES Prep Agents Chloraprep PA-C Hair Removal Method N/A Last Modified By: Herminia Ott [facility] 09/08/22 09:05:14 Patient Positioning- IR Entry 1 Procedure IR Tunneled Catheter Body Position OP Supine Removal W/O Pump SN Feet Uncrossed? Yes Pressure Points Yes Checked Last Modified By: Herminia Ott Broth Mixer 09/08/22 09:05:33 Radiology Procedure Plan - IR Entry 1 Radiology - Nursing Care Plan Radiology - Action Plan Action Plan - Patient demonstrates Outcome Statement knowledge of the expected reseponses to the invasive procedure, Patient's value system, lifestyle, ethnicity, and culture are considered, respected, and incorporated in the perioperative plan of care., Patient is free from signs and symptoms of infection., Patient is free from signs and symptoms of injury related to positioning., Patient is free from signs and symptoms of chemical injury., Patient receives appropriate medication(s), safely administered during the perioperative period., Patient is free from signs and symptoms of injury caused by extraneous objects (equipment, instrumentation, sponges, or sharps)., Patient is free from signs and symptoms of electrical injury. Outcomes Met? Yes Patient Safety Manager Herminia Ott [facility] Procedure Plan Last Modified By: Herminia Ott 09/08/22 09:06:29 Case Comments Finalized By: Herminia Ott Document Signatures Signed By: Herminia Ott 09/08/22 09:34 [id number] Summary of episode note Discharge Instructions Thank you for allowing [facility] to assist you with your healthcare needs. The following is importantdischarge information regarding your hospital visit. Your Care Team PRETTY CHILEL, DAWSON Raman What to do next Scheduled Follow-Up Appointments Appointment Type When Where Contact InformationCV OV CHF 09/20/2022 09:00 AM EDT [facility] [place] [facility] CT Chest w/o Contrast 10/14/2022 11:15 AM EDT [place] [facility] [phone] Follow Up Appointments Follow Up with JEREMIE GRIMM MD, [facility] When Why: Follow-up as scheduled Where: [facility] [address] [place] [address]- Allergies NKA Medications Please ask your primary doctor or pharmacist before taking any other medication not listed, including over the counter drugs, herbal medications, vitamins and or supplements as they may interact withyour home medications. What How Much When Instructions Last Dose Unchanged aspirin (aspirin 81 mg oral tablet, chewable) 1 tab(s) by mouth Once a day with a meal Unchanged carvedilol (carvedilol 25 mg oral tablet) 1 tab(s) by mouth Two (2) times a day Unchanged glipiZIDE (glipiZIDE 5 mg oral tablet) 1 tab(s) by mouth Once a day (in the morning) Unchanged hydrALAZINE (hydrALAZINE 50 mg oral tablet) 1 tab(s) by mouth Three (3) times a day Unchanged insulin isophane (NPH) - insulin regular (NovoLIN 70/ 30) See instructions Sliding Scale subQ Once Daily BG <200, 15units BG >250, 20 units BG >300, 25units Please take this list to your next doctor s visit. Bring all medications you take, including over the counter medications, herbals and other supplements with you to your doctor s visit. Patients and families are reminded to discard old lists and to update any records with all medication providers or retail pharmacies. Education Materials [place] Tunnel Catheter Removal Discharge Instructions Interventional Radiology [facility] [address] [place] [address] DIET: ? Resume your regular diet as tolerated. ACTIVITY: ? Rest for the remainder of the day. You may resume your normal activity tomorrow. ? You may bathe, but wait 3 days until the dressing is removed to shower. ? Do not soak or submerge site until a scab forms. ? No swimming or hot tubs. ? No heavy lifting, pushing, or straining. DRESSING: ? Check the site for bleeding. Apply pressure to the site if bleeding excessively and call your physician. ? The dressing can be removed after 3 days. PAIN CONTROL: ? The removal site may be sore for 1 to 2 days following the procedure. ? Lnzl-iqq-drjulhc pain medication should be used for pain or discomfort. Please check with the physician who ordered this procedure for you for their specific recommendations. ? If your pain is not relieved or becomes more severe, notify the physician who sent you for this procedure. MEDICATION: ? Please resume home medications today as scheduled. WHEN TO SEEK MEDICAL CARE: You should contact your physician or visit your local emergency room promptly if any of the following occur: Lightheadedness, dizziness, or fainting Infection Rarely, infection at the site where the catheter was removed may occur. Signs and symptoms include a fever greater than 101 degrees, chills, redness, warmth, swelling, increased pain, bleeding or pusfrom the puncture site. Additional Information VACCINATE! IT SAVES LIVES! Members of the community who have not yet received the COVID-19 vaccine and would like to receive it can visit one of [facility] vaccine clinics. There are many vaccine clinic locations within the [facility]. For locations and available times, please visit [email or web address].[place].gov/. It is important to note that some COVID mobile vaccine clinics are held outdoors and may be canceled in rainy or stormy conditions. To learn more about pediatric vaccinations (ages 5-11), we invite you to visit the [employer] webpage. [email or web address]/[email or web address] [email or web address] learn more about the COVID-19 vaccine, we invite you to visit the CDC website for a list of frequently asked questions. https://www.cdc.gov/coronavirus/2019-ncov/vaccines/faq.html [facility] Patient Portal Access Instructions: Stay connected with your healthcare team and access your personal medical information anytime with the [facility] Patient Portal.If you would like a full copy of your medical records, please contact the [facility] Medical Records Department, Monday through Monday between 8a.m. and 4:30p.m. Please follow the directions below to access the portal: 1.Access the email account you provided upon registration to the hospital.2.Look for an invitation email from [facility].3.Open the email and access the invitation link: Accept Invitation to [facility].Fill in the required dickinson to create your account. Sign into www.[employer] with your username and password that you created in the above steps to stay up to date. You can then view a summary of results, a summary of your visits, and the ability to download your summaries to your computer or send the information securely to a physician. Remember that your healthcare information is confidential, so carefully consider who you will allow to register on the [facility] Patient Portal for access to your information. You can also access the [facility] Patient Portal on the [employer] sveta. Simply click on Health Records under [employer] and then click on the [employer] logo. HOW TO SAFELY DISPOSE OF PRESCRIPTION MEDICATIONS Please use one of the following methods to safely dispose of your unused medications. 1.Use a drug disposal kit: the drug disposal pouch allows you to safely discard your old and unuseddrugs. Ask your nurse to give you one when you are discharged.2.Visit a local take-back location: Many local pharmacies and police departments have programs that collect old and unwanted prescriptiondrugs. Call your local pharmacy or go to http://Artillery.[employer]/1Z5Xu9z to find one close to you.3.Make use of household items: Use cat litter or old coffee grounds to dispose medications if other options arenot available. Mix your drugs with these household products, seal them in an airtight container andthrow it into the garbage. Call [facility]: [phone] to be sure your drugs can be disposed of in this way. Some medicines may require a different approach.4.Never flush your medications down the toilet. IF YOU HAVE BEEN PRESCRIBED AN OPIOID FOR PAIN If you have been prescribed an opioid (such as hydrocodone, oxycodone or morphine), it is critical to understand the possible side effects and risks of opioid pain medications. Even when taken as directed, opioids can have several side effects including: Tolerance, meaning you might need to take more of a medication for the same pain relief. Nausea, vomiting and/or constipation. Sleepiness, dizziness, dry mouth, confusion, depression or itching. Physical dependence, meaning you have withdrawal symptoms when a medication is stopped, can develop within a few days. KNOW YOUR RESPONSIBILITIES It is important to know exactly how much and how often to take the opioid pain medications you are prescribed. Never take opioids in higher amounts or more often than prescribed. Do not combine opioids with alcohol or other drugs that cause drowsiness, such as benzodiazepines, also known as benzos, including diazepam and alprazolam, muscle relaxants or sleep aids. Never sell or share prescription opioids. This is illegal. Store opioids in a secure place and out of reach of others (including children, family, friends and visitors). The last page of this document has been signed and retained as a CHART COPY. Signatures Patient Education Materials Radiology- Tunnel Catheter Removal 10/02/2019 (CUSTOM) Medication Leaflets My discharge plan and instructions have been reviewed and explained to me and I,JEANNE MUNIZEST Gillian understand my current condition and have read and understand these discharge instructions. I have received a written copy of the plan/instructions. If I have questions, I am aware that I should contactmy doctor. 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 I have examined the patient, reviewed the H&P, and there are no changes unless noted below: _ The most recent H&P/Office Note has been performed on 08/19/2022 and can be found on paper, which has been scanned into the [facility] PACS/RIS system. _ Digitally Signed by REBEKAH GIL PA-C on 09/08/2022 07:40 AM Digitally Signed by SHAMIKA DYKES MD on 09/08/2022 10:04 AM [facility] [id number] NoteORIGINAL PROCEDURE: Conversion of temporary to tunneled hemodialysis catheter with fluoroscopy CAMPUS MONITOR: Suzette Flores PA-C CLINICAL STATEMENT: Non-oliguric BRYANNA on stage III CKD, requires outpatient hemodialysis access MATERIALS: MedComp 14.5 Fr Hemo-Flow, 27 cm cuff to tip Dermabond 2-0 Ethilon suture EXISTING ACCESS SITE: Right internal jugular vein ANESTHESIA: Local FLUOROSCOPY: 0.6 minutes AIR KERMA DOSE: 35.65 mGy The procedure, risks, limitations, and alternatives were discussed. All questions were answered. Consent was obtained. Accompanying paperwork was verified for accuracy. Directed history and physical exam performed prior to the procedure. Medication reconciliation was performed by nursing personnel. Procedure was performed using a cap, sterile gown, sterile gloves, a large sterile sheet, hand hygiene and chlorhexidine for cutaneous antisepsis. The patient was positioned supine on the angiographic table and prepped and draped in usual sterile fashion. A critical pause was performed with assisting personnel just prior to the procedure with the patient's identity confirmed using 2 identifiers, confirming site and side. A wire was placed through the existing catheter into the IVC. The old catheter was exchanged for a peel away sheath after dilatation of the tract over the wire. The catheter length was estimated with the wire including the tunnel length. The planned tunnel in the upper chest was anesthestized with 2% lidocaine with epinephrine. A dermatotomy was made. The catheter was tunneled from the dermatotomy to the neck access site. The catheter was advanced through the peel away sheath, which was subsequently removed. The cuff is located adjacent to the catheter site in the upper chest to facilitate easier removal in the future. Both lumens aspirate and flush very quickly. Both lumens were flushed with saline. Sterile caps attached. Fluoroscopy demonstrates the catheter tip near the cavoatrial junction. A documentation fluoroscopic image obtained. The catheter was fixed to the skin with suture. A sterile dressing was applied. COMPLICATIONS: None EBL: Minimal PATIENT CONDITION: Stable, unchanged IMPRESSION: Successful conversion of a temporary to tunneled hemodialysis catheter. Procedure was performed by Suzette Flores PA-C Interpreted by: Shamika Dykes MD Preliminary Report By: Suzette Flores PA-C Electronically signed By Shamika Dykes MD Dictated Date: 08/19/2022 2:46:44 PM Prelim Date: 08/19/2022 2:51:35 PM Sign Date: 08/21/2022 9:15:05 PM Ordering Provider: [facility] (MD)08-19-2022 Hospital Discharge instructions Patient Education 08/19/2022 17:59:25 Heart Failure Action Plan Heart Failure Action Plan A heart failure action plan helps you understand what to do when you have symptoms of heart failure. Follow the plan that was created by you and your health care provider. Review your plan each time you visit your health care provider. Red zone These signs and symptoms mean you should get medical help right away: You have trouble breathing when resting. You have a dry cough that is getting worse. You have swelling or pain in your legs or abdomen that is getting worse. You suddenly gain more than 2 3 lb (0.9 1.4 kg) in a day, or more than 5 lb (2.3 kg) in one week. This amount may be more or less depending on your condition. You have trouble staying awake or you feel confused. You have chest pain. You do not have an appetite. You pass out. If you experience any of these symptoms: Call your local emergency services (911 in the [place] right away or seek help at the emergency department of the nearest hospital. Yellow zone These signs and symptoms mean your condition may be getting worse and you should make some changes: You have trouble breathing when you are active or you need to sleep with extra pillows. You have swelling in your legs or abdomen. You gain 2 3 lb (0.9 1.4 kg) in one day, or 5 lb (2.3 kg) in one week. This amount may be more or less depending on your condition. You get tired easily. You have trouble sleeping. You have a dry cough. If you experience any of these symptoms: Contact your health care provider within the next day. Your health care provider may adjust your medicines. Green zone These signs mean you are doing well and can continue what you are doing: You do not have shortness of breath. You have very little swelling or no new swelling. Your weight is stable (no gain or loss). You have a normal activity level. You do not have chest pain or any other new symptoms. Follow these instructions at home: Take ouzr-vqb-mqgcmff and prescription medicines only as told by your health care provider. Weigh yourself daily. Your target weight is lb ( kg). ?Call your health care provider if you gain more than lb ( kg) in a day, or more than lb ( kg) in one week. Eat a heart-healthy diet. Work with a diet and clinical informatics specialist (dietitian) to create an eatingplan that is best for you. Keep all follow-up visits as told by your health care provider. This is important. Where to find more information [place] [employer]: www.heart.org Summary Follow the action plan that was created by you and your health care provider. Get help right away if you have any symptoms in the Red zone. This information is not intended to replace advice given to you by your health care provider. Make sure you discuss any questions you have with your health care provider. Document Released: 07/15/2017 Document Revised: 05/18/2018 Document Reviewed: 07/15/2017 [employer] Patient Education 2020 [employer]. 08/19/2022 17:59:02 Dialysis Dialysis Dialysis is a procedure that is done when the kidneys have stopped working properly (kidney failure). It may also be done earlier if it may help improve symptoms. During dialysis, wastes, salt, and extra water are removed from the blood, and the levels of certain minerals in the blood are maintained. Dialysis is done in sessions which are continued until the kidneys get better. If the kidneys cannot get better, such as in end-stage kidney disease, dialysis is continued for life or until you receive a new kidney from a donor (kidney transplant). There are two types of dialysis: hemodialysis and peritoneal dialysis. What is hemodialysis? Hemodialysis is when a machine called a dialyzer is used to filter the blood. Before starting hemodialysis, you will have surgery to create a site where blood can be removed from the body and returned to the body (vascular access). There are three types of vascular accesses: Arteriovenous fistula. This type of access is created when an artery and a vein (usually in the arm) are connected during surgery. The arteriovenous fistula usually takes 1 6 months to develop after surgery. It may last longer than the other types of vascular accesses and is less likely to become infected or cause blood clots. Arteriovenous graft. This type of access is created when an artery and a vein in the arm are connected during surgery with a tube. An arteriovenous graft can usually be used within 2 3 weeks of surgery. A venous catheter. To create this type of access, a thin tube (catheter) is placed in a large vein in your neck, chest, or groin. A venous catheter can be used right away. It is usually used as a temporary access when dialysis needs to begin immediately. During hemodialysis, blood leaves your body through your access site. It travels through a tube to the dialyzer, where it is filtered. The blood then returns to your body through another tube. Hemodialysis is usually done at a hospital or dialysis center three times a week. Visits last about3 5 hours. With special training, it may also be done at home with the help of another person. What is peritoneal dialysis? Peritoneal dialysis is when the thin lining of the abdomen (peritoneum) and a fluid called dialysate are used to filter the blood. Before starting peritoneal dialysis, you will have surgery to place a catheter in your abdomen. The catheter will be used to transfer dialysate to and from your abdomen. At the start of a session, your abdomen is filled with dialysate. During the session, wastes, salt,and extra water in the blood pass through the peritoneum and into the dialysate. The dialysate is drained from the body at the end of the session. The process of filling and draining the dialysate iscalled an exchange. Exchanges are repeated until you have used up all the dialysate for the day. You may do peritoneal dialysis at home or at almost any other location. It is done every day. You may need up to five exchanges a day. Each exchange takes about 30 40 minutes. The amount of time the dialysate is in your body between exchanges is called a dwell. The dwell usually lasts 1.5 3 hours and can vary with each person. You may choose to do exchanges at night while you sleep, using a machine called a cycler. Which type of dialysis should I choose? Both types of dialysis have advantages and disadvantages. Talk with your health care provider aboutwhich type of dialysis is best for you. Your lifestyle, preferences, and medical condition should be considered. In some cases, only one type of dialysis can be chosen. Advantages of hemodialysis It is done less often than peritoneal dialysis. Someone else can do the dialysis for you. If you go to a dialysis center: ?Your health care provider can recognize any problems you may be having. ?You can interact with others who are having dialysis. This can provide you with emotional support. Disadvantages of hemodialysis Hemodialysis may cause cramps and low blood pressure. It may leave you feeling tired on the days you have the treatment. If you go to a dialysis center, you will need to make weekly appointments and work around the center s schedule. You will need to take extra care when traveling. If you usually get treatment in a dialysis center,you will need to arrange to visit a dialysis center near your destination. If you are having treatments at home, you will need to take the dialyzer with you when traveling. There are more eating restrictions than with peritoneal dialysis. Advantages of peritoneal dialysis It is less likely than hemodialysis to cause cramps and low blood pressure. There are fewer eating restrictions than with hemodialysis. You may do exchanges on your own wherever you are, including when you travel. Disadvantages of peritoneal dialysis It is done more often than hemodialysis. Doing peritoneal dialysis requires you to have a good use (dexterity) of your hands. You must also be able to lift bags. You must learn how to make your equipment free of germs (sterilization techniques). You will need to use these techniques every day to prevent infection. What changes will I need to make to my diet during dialysis? Both types of dialysis require you to make some changes to your diet. For example, you will need tolimit your intake of foods that contain a lot of phosphorus and potassium. You will also need to limit your fluid intake. A diet and clinical informatics specialist (dietitian) can help you make a meal plan that can help improve your dialysis and your health. What should I expect when starting dialysis? Adjusting to the dialysis treatment, schedule, and diet can take some time. You may need to stop working and may not be able to do some of your normal activities. You may feel anxious or depressed when starting dialysis. Over time, many people feel better overall because of dialysis. You may be able to return to work after making some changes, such as reducing work intensity. Where to find more information National Kidney Foundation: www.kidney.org [place] [employer]: www.aakp.org [place] [employer]: www.kidneyfund.org Summary During dialysis, wastes, salt, and extra water are removed from the blood, and the levels of certain minerals in the blood are maintained. There are two types of dialysis: hemodialysis and peritonealdialysis. Hemodialysis is when a machine called a dialyzer is used to filter the blood. Hemodialysis is usually done by a health care provider at a hospital or dialysis center three timesa week. Peritoneal dialysis is when the peritoneum is used as a filter. You may do peritoneal dialysis at home or at almost any other location. Both types of dialysis have advantages and disadvantages. Talk with your health care provider aboutwhich type of dialysis is best for you. This information is not intended to replace advice given to you by your health care provider. Make sure you discuss any questions you have with your health care provider. Document Released: 08/26/2003 Document Revised: 10/22/2019 Document Reviewed: 08/01/2017 [employer] Patient Education 2020 [employer]. 08/19/2022 17:58:59 Central Line Dialysis Access Placement, Care After Central Line Dialysis Access Placement, Care After This sheet gives you information about how to care for yourself after your procedure. Your health care provider may also give you more specific instructions. If you have problems or questions, contact your health care provider. What can I expect after the procedure? After the procedure, it is common to have: Mild pain or discomfort. Mild redness, swelling, or bruising around your incision. A small amount of blood or clear fluid coming from your incision. Follow these instructions at home: Incision care Follow instructions from your health care provider about how to take care of your incision. Make sure you: ?Wash your hands with soap and water before you change your bandage (dressing). If soap and water are not available, use hand supply chain generalist. ?Change your dressing as told by your health care provider. ?Leave stitches (sutures) in place. Check your incision area every day for signs of infection. Check for: ?More redness, swelling, or pain. ?More fluid or blood. ?Warmth. ?Pus or a bad smell. If directed, put heat on the catheter site as often as told by your health care provider. Use the heat source that your health care provider recommends, such as a moist heat pack or a heating pad. ?Place a towel between your skin and the heat source. ?Leave the heat on for 20 30 minutes. ?Remove the heat if your skin turns bright red. This is especially important if you are unable to feel pain, heat, or cold. You may have a greater risk of getting burned. If directed, put ice on the catheter site: ?Put ice in a plastic bag. ?Place a towel between your skin and the bag. ?Leave the ice on for 20 minutes, 2 3 times a day. Medicines Take qtmm-qpd-honibov and prescription medicines only as told by your health care provider. If you were prescribed an antibiotic medicine, use it as told by your health care provider. Do not stop using the antibiotic even if you start to feel better. Activity Return to your normal activities as told by your health care provider. Ask your health care provider what activities are safe for you. Do not lift anything that is heavier than 10 lb (4.5 kg) until your health care provider says that this is safe. Driving Do not drive for 24 hours if you were given a medicine to help you relax (sedative) during your procedure. Do not drive or use heavy machinery while taking prescription pain medicine. Lifestyle Limit alcohol intake to no more than 1 drink a day for non women and 2 drinks a day for men. One drink equals 12 oz of beer, 5 oz of wine, or 1 oz of hard liquor. Do not use any products that contain nicotine or tobacco, such as cigarettes and e-cigarettes. If you need help quitting, ask your health care provider. General instructions Do not take baths or showers, swim, or use a hot tub until your health care provider approves. You may only be allowed to take sponge baths for bathing. Wear compression stockings as told by your health care provider. These stockings help to prevent blood clots and reduce swelling in your legs. Follow instructions from your health care provider about eating or drinking restrictions. Keep all follow-up visits as told by your health care provider. This is important. Contact a health care provider if: Your catheter gets pulled out of place. Your catheter site becomes itchy. You develop a rash around your catheter site. You have more redness, swelling, or pain around your incision. You have more fluid or blood coming from your incision. Your incision area feels warm to the touch. You have pus or a bad smell coming from your incision. You have a fever. Get help right away if: You become light-headed or dizzy. You faint. You have difficulty breathing. Your catheter gets pulled out completely. This information is not intended to replace advice given to you by your health care provider. Make sure you discuss any questions you have with your health care provider. Document Released: 01/17/2005 Document Revised: 05/18/2018 Document Reviewed: 02/27/2017 [employer] Patient Education 2020 [employer]. Follow Up Care 08/06/2022 09:21:49 With:MATT JIN Address: [address] [facility] [address] [place] [phone] Business (1) When:Within 2 Week(s) With:Outpatient Dialysis at [facility]: [address] [place] [address]. . Monday, Monday, Monday @ 1pm. Address:Unknown When:1-2 days With:DAWSON OLSEN Address: [address] [id number], [place] [address]- When:1-2 days [facility] 03-03-2023 Note Discharge Instructions Thank you for allowing [facility] to assist you with your healthcare needs. The following is importantdischarge information regarding your hospital visit. Your Care Team DAWSON OLSEN MD Your Diagnosis SOB - Shortness of breath What to do next Follow Up Appointments Follow Up with MATT JIN When In 2 weeks Where: [address] [facility] [address] [address] [phone] Business (1) Follow Up with Outpatient Dialysis at [facility]: [address] [place] [address]. . Monday, Monday, Monday @ 1pm. When Within 1-2 days Follow Up with DAWSON OLSEN When Within 1-2 days Where: [id number] [place] [address]- The Following Activity and Diet Have Been Ordered for You No qualifying data available. Discharge Diet - Ordered -- Type of Diet: Cardiac, Sodium limit: 2 gm, 08/19/22 17:29:00 EST The Following Equipment Has Been Ordered for You Discharge Home Equipment Discharge Communication Order - Ordered -- Please call [facility] office if you experience any chest pain/discomfort, increased shortness of breath or weight gain/leg swelling for further instructions., 08/19/22 17:29:13 EST The Following Treatments Have Been Ordered for You Discharge Labs No qualifying data available. Discharge Radiology No qualifying data available. Other Therapies No qualifying data available. Post Acute Orders No qualifying data available. Someone Will Contact You Regarding These Home Health Referrals No home referrals have been ordered for you. No one will call you. Allergies NKA Immunizations This Visit Given Vaccine Dateinfluenza virus vaccine, inactivated 08/08/2022 Medications Please ask your primary doctor or pharmacist before taking any other medication not listed, including over the counter drugs, herbal medications, vitamins and or supplements as they may interact withyour home medications. What How Much When Instructions Last Dose Changed aspirin (aspirin 81 mg oral tablet, chewable) 1 tab(s) by mouth Once a day with a meal Pickup at [facility] Unchanged carvedilol (carvedilol 25 mg oral tablet) 1 tab(s) by mouth Two (2) times a day Unchanged glipiZIDE (glipiZIDE 5 mg oral tablet) 1 tab(s) by mouth Once a day (in the morning) Unchanged hydrALAZINE (hydrALAZINE 50 mg oral tablet) 1 tab(s) by mouth Three (3) times a day Unchanged insulin isophane (NPH) - insulin regular (NovoLIN 70/ 30) See instructions Sliding Scale subQ Once Daily BG <200, 15units BG >250, 20 units BG >300, 25units Pharmacy Information [facility]: [address] [place] [address] [phone] What How Much When Comments Stop Taking amLODIPine (amLODIPine 5 mg oral tablet) 1 tab(s) by mouth Once a day Stop Taking bumetanide (bumetanide 1 mg oral tablet) 2 tab(s) by mouth Three (3) times a day Please take this list to your next doctor s visit. Bring all medications you take, including over the counter medications, herbals and other supplements with you to your doctor s visit. Patients and families are reminded to discard old lists and to update any records with all medication providers or retail pharmacies. Medication Leaflets aspirin (oral) ( pir in) Arthritis Pain, Aspi-Cor, Aspir-Low, Anibal Plus, Durlaza, Ecotrin, Miniprin, V[place]alore What is the most important information I should know about aspirin? Aspirin can cause Hai's syndrome, a serious and sometimes fatal condition in children. What is aspirin? Aspirin is a salicylate (nz-ALL-fs-ate) that is used to treat pain, and reduce fever or inflammation. Aspirin is sometimes used to treat or prevent heart attacks, strokes, and chest pain (angina). Aspirin should be used for these conditions only under the supervision of a doctor. Aspirin may also be used for purposes not listed in this medication guide. What should I discuss with my healthcare provider before taking aspirin? Using aspirin in a child or teenager with flu symptoms or chickenpox can cause a serious or fatal condition called Hai's syndrome. You should not use aspirin if you are allergic to it, or if you have: a recent history of stomach or intestinal bleeding; a bleeding disorder such as hemophilia; or if you have ever had an asthma attack or severe allergic reaction after taking aspirin or an NSAID (non-steroidal anti-inflammatory drug). Tell your doctor if you have ever had: asthma or seasonal allergies; stomach ulcers; liver disease; kidney disease; a bleeding or blood clotting disorder; gout; or heart disease, high blood pressure, or congestive heart failure. Taking aspirin during late may cause bleeding in the mother or the baby during delivery. Tell your doctor if you are or plan to become . You should not breastfeed while using this medicine. How should I take aspirin? Use exactly as directed on the label, or as prescribed by your doctor. Always follow directions on the medicine label about giving aspirin to a child. Take with food if aspirin upsets your stomach. You must chew the chewable tablet before you swallow it. Do not crush, chew, break, or open an enteric-coated or delayed/extended-release pill. Swallow it whole. Tell your doctor if you have a planned surgery. Store at room temperature away from moisture and heat. Do not use aspirin if you smell a strong vinegar odor in the aspirin bottle. The medicine may no longer be effective. What happens if I miss a dose? Aspirin is used when needed. If you are on a dosing schedule, skip any missed dose. Do not use two doses at one time. What happens if I overdose? Seek emergency medical attention or call the Poison Help line at . Overdose may cause stomach pain, vomiting, diarrhea, vision or hearing problems, fast or slow breathing, or confusion. What should I avoid while taking aspirin? Avoid alcohol. Heavy drinking can increase your risk of stomach bleeding. Avoid taking ibuprofen if you take aspirin to prevent stroke or heart attack. Ibuprofen can make aspirin less effective in protecting your heart and blood vessels. Ask your doctor how far apart your doses should be. Ask a doctor or pharmacist before using other medicines for pain, fever, swelling, or cold/flu symptoms. They may contain ingredients similar to aspirin (such as magnesium salicylate, ibuprofen, ketoprofen, or naproxen). What are the possible side effects of aspirin? Get emergency medical help if you have signs of an allergic reaction: hives; difficult breathing; swelling of your face, lips, tongue, or throat. Stop using aspirin and call your doctor at once if you have: ringing in your ears, confusion, hallucinations, rapid breathing, seizure (convulsions); severe nausea, vomiting, or stomach pain; bloody or tarry stools, coughing up blood or vomit that looks like coffee grounds; fever lasting longer than 3 days; or swelling, or pain lasting longer than 10 days. Common side effects may include: upset stomach, heartburn; drowsiness; or mild headache. This is not a complete list of side effects and others may occur. Call your doctor for medical advice about side effects. You may report side effects to FDA at 7-471-SBE-7065. What other drugs will affect aspirin? Ask your doctor before using aspirin if you take an antidepressant. Taking certain antidepressants with aspirin may cause you to bruise or bleed easily. Ask a doctor or pharmacist before using aspirin with any other medications, especially: a blood thinner (warfarin, Coumadin, Jantoven), or other medication used to prevent blood clots; or other salicylates such as Nuprin Backache Caplet, Kaopectate, KneeRelief, Pamprin Cramp Formula, Pepto-Bismol, Tricosal, Trilisate, and others. This list is not complete. Other drugs may affect aspirin, including prescription and peam-uzb-zzlorne medicines, vitamins, and herbal products. Not all possible drug interactions are listed here. Where can I get more information? Your pharmacist can provide more information about aspirin. Remember, keep this and all other medicines out of the reach of children, never share your medicines with others, and use this medication only for the indication prescribed. Every effort has been made to ensure that the information provided by [employer]. ('[employer]') is accurate, up-to-date, and complete, but no guarantee is made to that effect. Drug information contained herein may be time sensitive. [employer] information has been compiled for use by healthcare practitioners and consumers in the [place] and therefore [employer] does not warrant that uses outside of the [place] are appropriate, unless specifically indicated otherwise. [employer] drug information does not endorse drugs, diagnose patients or recommend therapy. [facility] drug information isan informational resource designed to assist licensed healthcare practitioners in caring for their p atients and/or to serve consumers viewing this service as a supplement to, and not a substitute for, the expertise, skill, knowledge and judgment of healthcare practitioners. The absence of a warningfor a given drug or drug combination in no way should be construed to indicate that the drug or drug combination is safe, effective or appropriate for any given patient. [employer] does not assume any responsibility for any aspect of healthcare administered with the aid of information [employer] provides. The information contained herein is not intended to cover all possible uses, directions, precautions, warnings, drug interactions, allergic reactions, or adverse effects. If you have questions about the drugs you are taking, check with your doctor, nurse or pharmacist. Copyright 8953-3362 [employer]. Version: 16.03. Revision Date: 12/14/2020. Education Materials Heart Failure Action Plan A heart failure action plan helps you understand what to do when you have symptoms of heart failure. Follow the plan that was created by you and your health care provider. Review your plan each time you visit your health care provider. Red zone These signs and symptoms mean you should get medical help right away: You have trouble breathing when resting. You have a dry cough that is getting worse. You have swelling or pain in your legs or abdomen that is getting worse. You suddenly gain more than 2 3 lb (0.9 1.4 kg) in a day, or more than 5 lb (2.3 kg) in one week. This amount may be more or less depending on your condition. You have trouble staying awake or you feel confused. You have chest pain. You do not have an appetite. You pass out. If you experience any of these symptoms: Call your local emergency services (911 in the [place] right away or seek help at the emergency department of the nearest hospital. Yellow zone These signs and symptoms mean your condition may be getting worse and you should make some changes: You have trouble breathing when you are active or you need to sleep with extra pillows. You have swelling in your legs or abdomen. You gain 2 3 lb (0.9 1.4 kg) in one day, or 5 lb (2.3 kg) in one week. This amount may be more or less depending on your condition. You get tired easily. You have trouble sleeping. You have a dry cough. If you experience any of these symptoms: Contact your health care provider within the next day. Your health care provider may adjust your medicines. Green zone These signs mean you are doing well and can continue what you are doing: You do not have shortness of breath. You have very little swelling or no new swelling. Your weight is stable (no gain or loss). You have a normal activity level. You do not have chest pain or any other new symptoms. Follow these instructions at home: Take okpi-lys-wwthyhp and prescription medicines only as told by your health care provider. Weigh yourself daily. Your target weight is lb ( kg). ? Call your health care provider if you gain more than lb ( kg) in a day, or more than lb ( kg) in one week. Eat a heart-healthy diet. Work with a diet and clinical informatics specialist (dietitian) to create an eatingplan that is best for you. Keep all follow-up visits as told by your health care provider. This is important. Where to find more information [place] [employer]: www.heart.org Summary Follow the action plan that was created by you and your health care provider. Get help right away if you have any symptoms in the Red zone. This information is not intended to replace advice given to you by your health care provider. Make sure you discuss any questions you have with your health care provider. Document Released: 07/15/2017 Document Revised: 05/18/2018 Document Reviewed: 07/15/2017 [employer] Patient Education 2020 [employer] Dialysis Dialysis is a procedure that is done when the kidneys have stopped working properly (kidney failure). It may also be done earlier if it may help improve symptoms. During dialysis, wastes, salt, and extra water are removed from the blood, and the levels of certain minerals in the blood are maintained. Dialysis is done in sessions which are continued until the kidneys get better. If the kidneys cannot get better, such as in end-stage kidney disease, dialysis is continued for life or until you receive a new kidney from a donor (kidney transplant). There are two types of dialysis: hemodialysis and peritoneal dialysis. What is hemodialysis? Hemodialysis is when a machine called a dialyzer is used to filter the blood. Before starting hemodialysis, you will have surgery to create a site where blood can be removed from the body and returned to the body (vascular access). There are three types of vascular accesses: Arteriovenous fistula. This type of access is created when an artery and a vein (usually in the arm) are connected during surgery. The arteriovenous fistula usually takes 1 6 months to develop after surgery. It may last longer than the other types of vascular accesses and is less likely to become infected or cause blood clots. Arteriovenous graft. This type of access is created when an artery and a vein in the arm are connected during surgery with a tube. An arteriovenous graft can usually be used within 2 3 weeks of surgery. A venous catheter. To create this type of access, a thin tube (catheter) is placed in a large vein in your neck, chest, or groin. A venous catheter can be used right away. It is usually used as a temporary access when dialysis needs to begin immediately. During hemodialysis, blood leaves your body through your access site. It travels through a tube to the dialyzer, where it is filtered. The blood then returns to your body through another tube. Hemodialysis is usually done at a hospital or dialysis center three times a week. Visits last about3 5 hours. With special training, it may also be done at home with the help of another person. What is peritoneal dialysis? Peritoneal dialysis is when the thin lining of the abdomen (peritoneum) and a fluid called dialysate are used to filter the blood. Before starting peritoneal dialysis, you will have surgery to place a catheter in your abdomen. The catheter will be used to transfer dialysate to and from your abdomen. At the start of a session, your abdomen is filled with dialysate. During the session, wastes, salt,and extra water in the blood pass through the peritoneum and into the dialysate. The dialysate is drained from the body at the end of the session. The process of filling and draining the dialysate iscalled an exchange. Exchanges are repeated until you have used up all the dialysate for the day. You may do peritoneal dialysis at home or at almost any other location. It is done every day. You may need up to five exchanges a day. Each exchange takes about 30 40 minutes. The amount of time the dialysate is in your body between exchanges is called a dwell. The dwell usually lasts 1.5 3 hours and can vary with each person. You may choose to do exchanges at night while you sleep, using a machine called a cycler. Which type of dialysis should I choose? Both types of dialysis have advantages and disadvantages. Talk with your health care provider aboutwhich type of dialysis is best for you. Your lifestyle, preferences, and medical condition should be considered. In some cases, only one type of dialysis can be chosen. Advantages of hemodialysis It is done less often than peritoneal dialysis. Someone else can do the dialysis for you. If you go to a dialysis center: ? Your health care provider can recognize any problems you may be having. ? You can interact with others who are having dialysis. This can provide you with emotional support. Disadvantages of hemodialysis Hemodialysis may cause cramps and low blood pressure. It may leave you feeling tired on the days you have the treatment. If you go to a dialysis center, you will need to make weekly appointments and work around the center s schedule. You will need to take extra care when traveling. If you usually get treatment in a dialysis center,you will need to arrange to visit a dialysis center near your destination. If you are having treatments at home, you will need to take the dialyzer with you when traveling. There are more eating restrictions than with peritoneal dialysis. Advantages of peritoneal dialysis It is less likely than hemodialysis to cause cramps and low blood pressure. There are fewer eating restrictions than with hemodialysis. You may do exchanges on your own wherever you are, including when you travel. Disadvantages of peritoneal dialysis It is done more often than hemodialysis. Doing peritoneal dialysis requires you to have a good use (dexterity) of your hands. You must also be able to lift bags. You must learn how to make your equipment free of germs (sterilization techniques). You will need to use these techniques every day to prevent infection. What changes will I need to make to my diet during dialysis? Both types of dialysis require you to make some changes to your diet. For example, you will need tolimit your intake of foods that contain a lot of phosphorus and potassium. You will also need to limit your fluid intake. A diet and clinical informatics specialist (dietitian) can help you make a meal plan that can help improve your dialysis and your health. What should I expect when starting dialysis? Adjusting to the dialysis treatment, schedule, and diet can take some time. You may need to stop working and may not be able to do some of your normal activities. You may feel anxious or depressed when starting dialysis. Over time, many people feel better overall because of dialysis. You may be able to return to work after making some changes, such as reducing work intensity. Where to find more information National Kidney Foundation: www.kidney.org [place] [employer] Patients: www.aakp.org [place] [employer]: www.kidneyfund.org Summary During dialysis, wastes, salt, and extra water are removed from the blood, and the levels of certain minerals in the blood are maintained. There are two types of dialysis: hemodialysis and peritonealdialysis. Hemodialysis is when a machine called a dialyzer is used to filter the blood. Hemodialysis is usually done by a health care provider at a hospital or dialysis center three timesa week. Peritoneal dialysis is when the peritoneum is used as a filter. You may do peritoneal dialysis at home or at almost any other location. Both types of dialysis have advantages and disadvantages. Talk with your health care provider aboutwhich type of dialysis is best for you. This information is not intended to replace advice given to you by your health care provider. Make sure you discuss any questions you have with your health care provider. Document Released: 08/26/2003 Document Revised: 10/22/2019 Document Reviewed: 08/01/2017 [employer] Patient Education 2020 [employer] Central Line Dialysis Access Placement, Care After This sheet gives you information about how to care for yourself after your procedure. Your health care provider may also give you more specific instructions. If you have problems or questions, contact your health care provider. What can I expect after the procedure? After the procedure, it is common to have: Mild pain or discomfort. Mild redness, swelling, or bruising around your incision. A small amount of blood or clear fluid coming from your incision. Follow these instructions at home: Incision care Follow instructions from your health care provider about how to take care of your incision. Make sure you: ? Wash your hands with soap and water before you change your bandage (dressing). If soap and water are not available, use hand supply chain generalist. ? Change your dressing as told by your health care provider. ? Leave stitches (sutures) in place. Check your incision area every day for signs of infection. Check for: ? More redness, swelling, or pain. ? More fluid or blood. ? Warmth. ? Pus or a bad smell. If directed, put heat on the catheter site as often as told by your health care provider. Use the heat source that your health care provider recommends, such as a moist heat pack or a heating pad. ? Place a towel between your skin and the heat source. ? Leave the heat on for 20 30 minutes. ? Remove the heat if your skin turns bright red. This is especially important if you are unable to feel pain, heat, or cold. You may have a greater risk of getting burned. If directed, put ice on the catheter site: ? Put ice in a plastic bag. ? Place a towel between your skin and the bag. ? Leave the ice on for 20 minutes, 2 3 times a day. Medicines Take ksuh-zpc-wwyofpp and prescription medicines only as told by your health care provider. If you were prescribed an antibiotic medicine, use it as told by your health care provider. Do not stop using the antibiotic even if you start to feel better. Activity Return to your normal activities as told by your health care provider. Ask your health care provider what activities are safe for you. Do not lift anything that is heavier than 10 lb (4.5 kg) until your health care provider says that this is safe. Driving Do not drive for 24 hours if you were given a medicine to help you relax (sedative) during your procedure. Do not drive or use heavy machinery while taking prescription pain medicine. Lifestyle Limit alcohol intake to no more than 1 drink a day for non women and 2 drinks a day for men. One drink equals 12 oz of beer, 5 oz of wine, or 1 oz of hard liquor. Do not use any products that contain nicotine or tobacco, such as cigarettes and e-cigarettes. If you need help quitting, ask your health care provider. General instructions Do not take baths or showers, swim, or use a hot tub until your health care provider approves. You may only be allowed to take sponge baths for bathing. Wear compression stockings as told by your health care provider. These stockings help to prevent blood clots and reduce swelling in your legs. Follow instructions from your health care provider about eating or drinking restrictions. Keep all follow-up visits as told by your health care provider. This is important. Contact a health care provider if: Your catheter gets pulled out of place. Your catheter site becomes itchy. You develop a rash around your catheter site. You have more redness, swelling, or pain around your incision. You have more fluid or blood coming from your incision. Your incision area feels warm to the touch. You have pus or a bad smell coming from your incision. You have a fever. Get help right away if: You become light-headed or dizzy. You faint. You have difficulty breathing. Your catheter gets pulled out completely. This information is not intended to replace advice given to you by your health care provider. Make sure you discuss any questions you have with your health care provider. Document Released: 01/17/2005 Document Revised: 05/18/2018 Document Reviewed: 02/27/2017 [employer] Patient Education 2020 [employer] Additional Information VACCINATE! IT SAVES LIVES! Members of the community who have not yet received the COVID-19 vaccine and would like to receive it can visit one of [facility] vaccine clinics. There are many vaccine clinic locations within the [facility]. For locations and available times, please visit [email or web address] It is important to note that some COVID mobile vaccine clinics are held outdoors and may be canceled in rainy or stormy conditions. To learn more about pediatric vaccinations (ages 5-11), we invite you to visit the [facility] webpage. [email or web address]/[email or web address] learn more about the COVID-19 vaccine, we invite you to visit the CDC website for a list of frequently asked questions. https://www.cdc.gov/coronavirus/2019-ncov/vaccines/faq.html [facility] Patient Portal Access Instructions: Stay connected with your healthcare team and access your personal medical information anytime with the [facility] Patient Portal.If you would like a full copy of your medical records, please contact the [facility] Medical Records Department, Monday through Monday between 8a.m. and 4:30p.m. Please follow the directions below to access the portal: 1.Access the email account you provided upon registration to the [facility].2.Look for an invitation email from [facility].3.Open the email and access the invitation link: Accept Invitation to [facility].Fill in the required dickinson to create your account. Sign into www.[employer] with your username and password that you created in the above steps to stay up to date. You can then view a summary of results, a summary of your visits, and the ability to download your summaries to your computer or send the information securely to a physician. Remember that your healthcare information is confidential, so carefully consider who you will allow to register on the [facility] Patient Portal for access to your information. You can also access the [facility] Patient Portal on the [employer] sveta. Simply click on Health Records under [employer] and then click on the [employer] logo. HOW TO SAFELY DISPOSE OF PRESCRIPTION MEDICATIONS Please use one of the following methods to safely dispose of your unused medications. 1.Use a drug disposal kit: the drug disposal pouch allows you to safely discard your old and unuseddrugs. Ask your nurse to give you one when you are discharged.2.Visit a local take-back location: Many local pharmacies and police departments have programs that collect old and unwanted prescriptiondrugs. Call your local pharmacy or go to http://bit.[employer]/7G1Wt5p to find one close to you.3.Make use of household items: Use cat litter or old coffee grounds to dispose medications if other options arenot available. Mix your drugs with these household products, seal them in an airtight container andthrow it into the garbage. Call [facility]: [phone] to be sure your drugs can be disposed of in this way. Some medicines may require a different approach.4.Never flush your medications down the toilet. IF YOU HAVE BEEN PRESCRIBED AN OPIOID FOR PAIN If you have been prescribed an opioid (such as hydrocodone, oxycodone or morphine), it is critical to understand the possible side effects and risks of opioid pain medications. Even when taken as directed, opioids can have several side effects including: Tolerance, meaning you might need to take more of a medication for the same pain relief. Nausea, vomiting and/or constipation. Sleepiness, dizziness, dry mouth, confusion, depression or itching. Physical dependence, meaning you have withdrawal symptoms when a medication is stopped, can develop within a few days. KNOW YOUR RESPONSIBILITIES It is important to know exactly how much and how often to take the opioid pain medications you are prescribed. Never take opioids in higher amounts or more often than prescribed. Do not combine opioids with alcohol or other drugs that cause drowsiness, such as benzodiazepines, also known as benzos, including diazepam and alprazolam, muscle relaxants or sleep aids. Never sell or share prescription opioids. This is illegal. Store opioids in a secure place and out of reach of others (including children, family, friends and visitors). The last page of this document has been signed and retained as a CHART COPY. Signatures Patient Education Materials Heart Failure Action Plan Dialysis Central Line Dialysis Access Placement, Care After Medication Leaflets aspirin (oral) My discharge plan and instructions have been reviewed and explained to me and ICRISTY ERNEST E understand my current condition and have read and understand these discharge instructions. I have received a written copy of the plan/instructions. If I have questions, I am aware that I should contactmy doctor. 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 Name: SHEREE MUNIZ Gillian Kim/Sex: 1955 Male Med Rec #: [id number] Physician: WILY BENITEZ MD Financial #: [id number] Pt. Type: I Room/[facility]: [facility] Admit/Disch: 08/06/22 09:19:52 - Institution: Allergies identified in patient's electronic medical record at time of printing on 08/19/22 Entry 1 Substance NKA Reaction Type Allergy Last Modified By: Kathryn Schaefer RN 05/24/16 14:12:02 Case Attendance- IR Entry 1 Entry 2 Entry 3 Case Attendee SUZETTE FLORES Megan R Rad Bollon, Rad Tech Kathy A PA-C Tech Role Performed Primary Surgeon Scrub Technologist Circulating Technologist Details Time In 08/19/22 13:45:00 08/19/22 13:45:00 08/19/22 13:45:00 Time Out 08/19/22 14:35:00 08/19/22 14:35:00 08/19/22 14:35:00 Procedure/Preference IR Tunneled Catheter IR Tunneled Catheter IR Tunneled Catheter Card Insertion SN Insertion SN Insertion SN Last Modified By: DENISE Macario RN Corey Snider, RN Corey 08/19/22 14:21:54 08/19/22 14:21:54 08/19/22 14:21:54 Entry 4 Case Attendee DENIES Macario Role Performed Procedure Nurse Details Time In 08/19/22 13:45:00 Time Out 08/19/22 14:35:00 Procedure/Preference IR Tunneled Catheter Card Insertion SN Last Modified By: DENISE Macario 08/19/22 14:21:54 Radiology Procedures- IR Entry 1 Procedure/Preference IR Tunneled Catheter Actual Procedure ir tunneled catheter Card Insertion SN insertion Primary Procedure Yes Primary Surgeon SUZETTE FLORES PA-C Anesthesia/Sedation Local Type Additional Procedure Times Start 08/19/22 14:03:00 Stop 08/19/22 14:21:00 Specialty Service SN Radiology Procedure EBL 1 mL Last Modified By: DENISE Macario 08/19/22 14:22:51 Radiology Procedure Details - IR Entry 1 Radiology Sedation Case Times Sedation Total Time 0min Radiology - Fluid/Drainage Radiology Contrast Contrast Used? No Radiology Flouroscopy Fluoroscopy Used? Yes Fluoro Dose (mGy) 35.65 Fluoro Time 0.6min Radiology Local Local Used? Yes Local Type: lidocaine/ lidocaine w epinephrine Local Dose 10ml/10ml Radiology Procedure Site Site/Location right chest Site Condition No complications Suture 2.0 Ethilon Suture Dressing Type Tagaderm Technologist Notes 27 cuff to tip Last Modified By: DENISE Macario 08/19/22 14:24:59 General Case Data - IR Entry 1 Case Information Room AH IR 17 Case Level IR Level 2 Wound Class None Specialty SN Radiology Procedure ASA Class None Diagnosis Preop Diagnosis heart failure Postop Same As Preop Yes exacerbation Postop Diagnosis heart failure exacerbation Last Modified By: DENISE Macario 08/19/22 14:10:49 Procedure Case Times- IR Entry 1 Patient In Procedure Patient In OR 08/19/22 13:45:00 Patient Out of OR 08/19/22 14:35:00 Procedure Start/Stop Procedure Start Time 08/19/22 14:03:00 Procedure Stop Time 08/19/22 14:21:00 Last Modified By: DENISE Macario 08/19/22 14:21:53 Immediate Post Procedure Note - IR Entry 1 Immediate Post Yes Findings Right IJ 27cm temp to Procedure Note tunnel displayed for Physician to review Closure Technique Closure Technique Other than Primary Last Modified By: DENISE Macario 08/19/22 14:22:42 Immediate Post Procedure Note - IR Signed By: SUZETTE FLORES PA-C 08/19/22 14:22 Allergy Information- IR Entry 1 Allergies Reviewed? Yes Allergies Reviewed Medical Record With Last Modified By: DENISE Macario 08/19/22 14:06:59 Radiology Protocols/Time Out- IR Entry 1 Preprocedure Clinician Verifies Correct patient ID When Clinically Confirmation of correct using name & date Indicated side(s) and site(s), or MRN, Accurate Correct diagnostic and procedure, complete radiology tests Informed Consent, H & P available, Required update immediately blood products, prior to procedure, if implants, devices applicable and/or special equipment available, Preop antibiotics sent with patient/available in OR OR/Procedure Room/Bedside Time 08/19/22 14:03:00 Clinician Verifies Correct patient identity including EMR & records using name and date or medical record number, Accurate procedure consent form, Correct patient position, Necessary equipment is available, Anticipated non-routine events with surgical team (case duration, estimated blood loss, patient specific concerns)., Brito patient factors for recovery and management identified with surgical team. When Applicable Confirmation correct Team Members SUZETTE FLORES side and site marked, Present for Time Out PA-C, Jessica Frazier Relevant images and Broth Mixer, Bollon, Rad results are properly Tech Amirah Gonzalez, labeled and DENISE Rubio appropriately displayed, Alcohol based prep dry, Double verification of sterility indicators complete Instrument Sterility Team Members Jessica Frazier Rad Verifying Sterility Tech, SUZETTE FLORES PA-C Procedure IR Tunneled Catheter Insertion SN Last Modified By: DENISE Macario 08/19/22 14:09:19 Skin Prep- IR Entry 1 Procedure IR Tunneled Catheter Insertion SN Skin Prep Prep Area Chest, Neck Side Right By Jessica Frazier Rad Prep Agents Chloraprep Tech Hair Removal Method Clipped in OR Last Modified By: DENISE Macario 08/19/22 14:09:49 Patient Positioning- IR Entry 1 Procedure IR Tunneled Catheter Body Position OP Supine Insertion SN Feet Uncrossed? Yes Pressure Points Yes Checked Last Modified By: DENISE Macario 08/19/22 14:10:14 Implants- IR Entry 1 Implant/Explant Implant Implant Description CATH HEMO-FLOW [id number] 5/BX [id number] Wasted? 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 appropriate of the expected medication(s), safely responses to the administered during the operative/invasive perioperative/invasive procedure., The period., The patient is patient's value system, free from signs and lifestyle, ethnicity, symptoms of injury and culture are caused by extraneous considered, respected, objects (equipment, and incorporated in the instrumentation, perioperative plan of sponges, or sharps). care., The patient is free from signs and symptoms of infection., The patient is free from signs and symptoms of injury related to positioning. Radiology - Action Plan Outcomes Met? Yes Patient Safety Manager DENISE Macario Completing Procedure Plan Last Modified By: DENISE Macario 08/19/22 14:10:36 Case Comments Finalized By: DENISE Macario Document Signatures Signed By: DENISE Macario 08/19/22 14:25 [id number] Nephrology Progress note Date of Service 08/19/2022 Chief Complaint No new complaints. Subjective Patient is sitting in chair. Currently on 3 L O2 via NC. Denies any chest pain. Shortness of breath is improving. Urine output of 1850 mL over 24 hours. Had dialysis yesterday, 1.5 L fluid removed. Scheduled for conversion of his temporary HD catheter to PermCath by IR today. Objective Vitals and Measurements T: 36.3 C (Oral) TMIN: 36.3 C (Oral) TMAX: 36.7 C (Skin) HR: 63(Monitored) RR: 18 BP: 152/58 SpO2: 97% WT: 153.2 kg Physical Exam HEENT: PERRLA Neck: Right temporary HD catheter present Respiratory: Bilateral air entry is present, decreased at bases Cardiovascular: S1-S2 present, no rub Abdomen: Morbidly obese, soft, NT, BS present Extremities: Bilateral 1+ 2+ pedal edema present, PP present Medications Medications (6) Active Scheduled: (6) aspirin 81 mg Chewable 81 mg 1 tab(s), Oral, qDayM carvedilol 25 mg tablet 25 mg 1 tab(s), Oral, BID ceFAZolin syringe 2 gram(s) 20 mL, IV Push (INT), PREOP pharm heparin 5,000 units/mL (1 mL) vial 5,000 unit(s) 1 mL, Subcutaneous, q8h insulin lispro 100 units/mL Soln (3 mL) Give 0-10 units/dose, Subcutaneous, TIDAC isosorbide mononitrate 30 mg ER tablet 30 mg 1 tab(s), Oral, qDayAC Continuous: (0) PRN: (0) Lab Results 08/19 04:57 WBC: 3.7 L Hgb: 13.9 Hct: 43.8 Platelet: 111 L Neutrophil %: 69.3 Glucose Level: 160 H Sodium Level: 137 Potassium Level: 4.1 BUN: 90.0 H Creatinine Lvl (s): 2.26 H CO2: 28 Calcium: 8.8 Magnesium: 2.4 08/18 09:51 Glucose Level: 227 H Sodium Level: 136 Potassium Level: 4.2 BUN: 119.0 C Creatinine Lvl (s): 2.41 H 08/18 03:46 WBC: 3.8 L Hgb: 13.9 Hct: 44.2 Platelet: 120 L Neutrophil %: 66.0 Assessment/Plan Non-oliguric BRYANNA on stage III CKD: Had dialysis yesterday, another dialysis today Volume overload: Ultrafiltration/fluid removal with dialysis as tolerated. Improving volume status Acute on chronic CHF with reduced EF: Fluid removal with dialysis/ultrafiltration as tolerated Metabolic alkalosis Acute on chronic respiratory failure: On 3 L O2 at present Hypertension: Expect BP to improve with dialysis Morbid obesity Pulmonary hypertension Continue with current management. Dialysis today. PermCath placement by IR today. textile conversion manager/SW working on making outpatient dialysis arrangements at [facility] dialysis unit. Okay to discharge the patient from renal standpoint once those arrangements are made and PermCath is in place. Discussed with patient, at bedside at length. Also discussed with Dr. Jin and nursing staff.Will follow. Digitally Signed by JEREMIE GRIMM MD on 08/19/2022 01:17 PM [facility] [id number] Cardiology Progress note Date of Service 08/18/2022 Chief Complaint Systolic heart failure Subjective No complaints dyspnea or chest pain. Minimal urine output overnight. Objective Vitals and Measurements T: 36.4 C (Oral) TMIN: 36.3 C (Axillary) TMAX: 36.5 C (Oral) HR: 61(Monitored) RR: 18 BP: 135/64 SpO2: 90% WT: 154.8 kg Intake and Output 7AM Yesterday to 7AM Today Intake and Output (Last 24 hours) Intake Oral Intake 270.00 Output Urine Voided 200.00 Stool Count 0.00 Total Summary Total Intake 270.00 Total Output 200.00 Fluid Balance 70.00 Physical Exam Constitutional: no distress, appears stated age ENT: No thyroid masses Respiratory: Clear to auscultation, no adventitious sounds Cardiovascular: RRR, S1 and S2, no murmurs, JVP 12-13 cm H2O, pedal edema GI: Soft, nondistended, bowel sounds present Musculoskeletal: no deformity Skin: Warm to touch, dry Neurological: Alert and oriented Weight Current Weight Dosing Weight: 166 kg (08/16/22) Current Weight: 154.8 kg (08/18/22) Dosing Weight: 169.3 kg (08/16/22) Current Weight: 154.3 kg (08/17/22) Medications Medications (5) Active Scheduled: (5) aspirin 81 mg Chewable 81 mg 1 tab(s), Oral, qDayM carvedilol 25 mg tablet 25 mg 1 tab(s), Oral, BID heparin 5,000 units/mL (1 mL) vial 5,000 unit(s) 1 mL, Subcutaneous, q8h insulin lispro 100 units/mL Soln (3 mL) Give 0-10 units/dose, Subcutaneous, TIDAC isosorbide mononitrate 30 mg ER tablet 30 mg 1 tab(s), Oral, qDayAC Continuous: (0) PRN: (0) Lab Results 08/18 09:51 Glucose Level: 227 H Sodium Level: 136 Potassium Level: 4.2 BUN: 119.0 C Creatinine Lvl (s): 2.41 H 08/18 03:46 WBC: 3.8 L Hgb: 13.9 Hct: 44.2 Platelet: 120 L Neutrophil %: 66.0 08/17 02:48 WBC: 4.6 Hgb: 14.1 Hct: 45.1 Platelet: 128 L Neutrophil %: 70.3 Glucose Level: 141 H Sodium Level: 136 Potassium Level: 4.1 BUN: 81.0 H Creatinine Lvl (s): 2.72 H EKG No qualifying data available. Assessment/Plan SOB - Shortness of breath Acute on chronic systolic and diastolic heart failure LVEF decreased to 25 to 30% Probable PHTN (dilated pulmonary trunk, contrast reflux in IVC) Nonischemic cardiomyopathy Mild angiographic CAD 01/2021 History of pulmonary embolism Diabetes, hypertension, ANDRADE, ascending aortic aneurysm 5.[address] not interested in follow-up or surgery, obesity Scattered calcified lung, 1.2 cm granulomas irregular nodule consolidation BRYANNA likely secondary to contrast exposure Hyperkalemia CVC: AQ Mr. Muniz is a 67-year-old man with NICM, follows with Dr. Jin in clinic, he presents ER withacute decompensated heart failure of few days duration of unclear trigger. He is compliant with hismedications including bumetanide 2 mg p.o. 3 times daily, minimizes salt intake, no recent chest pain, palpitation, however endorses some lightheadedness. No evidence of A-fib in our available records. Surface echo 1. Left ventricle: The cavity size is increased. Wall thickness is normal. Systolic function is severely reduced. The estimated ejection fraction is 25-30%. There is severe diffuse hypokinesis. Grade II diastolic dysfunction. 2. Aortic valve: Transvalvular velocity is increased. There is moderate stenosis. The LVOT to aortic valve VTI ratio is 0.34. 3. Mitral valve: The annulus is mildly calcified. The leaflets are moderately thickened. Thickening. 4. Right ventricle: The cavity size is increased. 5. Right atrium: The atrium is dilated. Nephrology to determine whether permanent dialysis is needed prior to discharge, awaiting labs Digitally Signed by GREG NAVARRO MD on 08/18/2022 01:44 PM [facility] [id number] Cardiology Progress note Date of Service 08/18/2022 Chief Complaint Systolic heart failure Subjective No complaints dyspnea or chest pain. Minimal urine output overnight. Objective Vitals and Measurements T: 36.4 C (Oral) TMIN: 36.3 C (Axillary) TMAX: 36.5 C (Oral) HR: 61(Monitored) RR: 18 BP: 135/64 SpO2: 90% WT: 154.8 kg Intake and Output 7AM Yesterday to 7AM Today Intake and Output (Last 24 hours) Intake Oral Intake 270.00 Output Urine Voided 200.00 Stool Count 0.00 Total Summary Total Intake 270.00 Total Output 200.00 Fluid Balance 70.00 Physical Exam Constitutional: no distress, appears stated age ENT: No thyroid masses Respiratory: Clear to auscultation, no adventitious sounds Cardiovascular: RRR, S1 and S2, no murmurs, JVP 12-13 cm H2O, pedal edema GI: Soft, nondistended, bowel sounds present Musculoskeletal: no deformity Skin: Warm to touch, dry Neurological: Alert and oriented Weight Current Weight Dosing Weight: 166 kg (08/16/22) Current Weight: 154.8 kg (08/18/22) Dosing Weight: 169.3 kg (08/16/22) Current Weight: 154.3 kg (08/17/22) Medications Medications (5) Active Scheduled: (5) aspirin 81 mg Chewable 81 mg 1 tab(s), Oral, qDayM carvedilol 25 mg tablet 25 mg 1 tab(s), Oral, BID heparin 5,000 units/mL (1 mL) vial 5,000 unit(s) 1 mL, Subcutaneous, q8h insulin lispro 100 units/mL Soln (3 mL) Give 0-10 units/dose, Subcutaneous, TIDAC isosorbide mononitrate 30 mg ER tablet 30 mg 1 tab(s), Oral, qDayAC Continuous: (0) PRN: (0) Lab Results 08/18 09:51 Glucose Level: 227 H Sodium Level: 136 Potassium Level: 4.2 BUN: 119.0 C Creatinine Lvl (s): 2.41 H 08/18 03:46 WBC: 3.8 L Hgb: 13.9 Hct: 44.2 Platelet: 120 L Neutrophil %: 66.0 08/17 02:48 WBC: 4.6 Hgb: 14.1 Hct: 45.1 Platelet: 128 L Neutrophil %: 70.3 Glucose Level: 141 H Sodium Level: 136 Potassium Level: 4.1 BUN: 81.0 H Creatinine Lvl (s): 2.72 H EKG No qualifying data available. Assessment/Plan SOB - Shortness of breath Acute on chronic systolic and diastolic heart failure LVEF decreased to 25 to 30% Probable PHTN (dilated pulmonary trunk, contrast reflux in IVC) Nonischemic cardiomyopathy Mild angiographic CAD 01/2021 History of pulmonary embolism Diabetes, hypertension, ANDRADE, ascending aortic aneurysm 5.[address] not interested in follow-up or surgery, obesity Scattered calcified lung, 1.2 cm granulomas irregular nodule consolidation BRYANNA likely secondary to contrast exposure Hyperkalemia CVC: AQ Mr. Muniz is a 67-year-old man with NICM, follows with Dr. Jin in clinic, he presents ER withacute decompensated heart failure of few days duration of unclear trigger. He is compliant with hismedications including bumetanide 2 mg p.o. 3 times daily, minimizes salt intake, no recent chest pain, palpitation, however endorses some lightheadedness. No evidence of A-fib in our available records. Surface echo 1. Left ventricle: The cavity size is increased. Wall thickness is normal. Systolic function is severely reduced. The estimated ejection fraction is 25-30%. There is severe diffuse hypokinesis. Grade II diastolic dysfunction. 2. Aortic valve: Transvalvular velocity is increased. There is moderate stenosis. The LVOT to aortic valve VTI ratio is 0.34. 3. Mitral valve: The annulus is mildly calcified. The leaflets are moderately thickened. Thickening. 4. Right ventricle: The cavity size is increased. 5. Right atrium: The atrium is dilated. Nephrology to determine whether permanent dialysis is needed prior to discharge, awaiting labs Digitally Signed by GREG NAVARRO MD on 08/18/2022 01:44 PM [facility] [id number] Nephrology Progress note Date of Service 08/18/2022 Chief Complaint Shortness of breath. Subjective Patient is sitting in chair. Currently on 3 L O2 via NC. Denies any chest pain. Complains of shortness of breath which is improving. Also leg edema is improving. Denies any dizziness or lightheadedness. Had dialysis on Monday. Awaiting lab result from this morning to decide about the need for dialysis. Patient states that he is not urinating much. Objective Vitals and Measurements T: 36.4 C (Axillary) TMIN: 36.3 C (Axillary) TMAX: 36.5 C (Oral) HR: 61(Monitored) RR: 18 BP: 132/55 SpO2: 92% WT: 154.8 kg Physical Exam HEENT: PERRLA Neck: Right temporary HD catheter present Respiratory: Bilateral air entry is present, decreased at bases Cardiovascular: S1-S2 present, no rub Abdomen: Morbidly obese, soft, NT, BS present Extremities: Bilateral 1+ 2+ pedal edema present, PP present Medications Medications (5) Active Scheduled: (5) aspirin 81 mg Chewable 81 mg 1 tab(s), Oral, qDayM carvedilol 25 mg tablet 25 mg 1 tab(s), Oral, BID heparin 5,000 units/mL (1 mL) vial 5,000 unit(s) 1 mL, Subcutaneous, q8h insulin lispro 100 units/mL Soln (3 mL) Give 0-10 units/dose, Subcutaneous, TIDAC isosorbide mononitrate 30 mg ER tablet 30 mg 1 tab(s), Oral, qDayAC Continuous: (0) PRN: (0) Lab Results 08/18 03:46 WBC: 3.8 L Hgb: 13.9 Hct: 44.2 Platelet: 120 L Neutrophil %: 66.0 Today's BMP pending. 08/17 02:48 WBC: 4.6 Hgb: 14.1 Hct: 45.1 Platelet: 128 L Neutrophil %: 70.3 Glucose Level: 141 H Sodium Level: 136 Potassium Level: 4.1 BUN: 81.0 H Creatinine Lvl (s): 2.72 H Assessment/Plan Non-oliguric BRYANNA on stage III CKD: Awaiting today's lab result to decide about the need for dialysis. If renal function continues to worsen, he will need outpatient dialysis arrangements and PermCathplacement before discharge Volume overload: Ultrafiltration/fluid removal with dialysis as tolerated. Improving volume status Acute on chronic CHF with reduced EF: Fluid removal with dialysis/ultrafiltration as tolerated Metabolic alkalosis Acute on chronic respiratory failure: Decreasing oxygen requirement Hypertension: BP acceptable Morbid obesity Pulmonary hypertension Continue with current management. Awaiting lab results from this morning to decide about the need for dialysis. If renal function worsens, he will need outpatient dialysis arrangements and PermCath placement before discharge. Discussed with patient. Labs in AM. Discussed with Dr. Jin. Will follow. Digitally Signed by JEREMIE GRIMM MD on 08/18/2022 11:21 AM [id number] Cardiology Progress note Date of Service 08/17/2022 Chief Complaint Systolic heart failure exacerbation Subjective Seen and examined. Urine output 870 overnight, creatinine stable at 2.72. Plan for further dialysis. Objective Vitals and Measurements T: 36.5 C (Oral) TMIN: 36.5 C (Oral) TMAX: 36.8 C (Oral) HR: 63(Monitored) RR: 20 BP: 113/60 SpO2: 91% WT: 154.3 kg Intake and Output 7AM Yesterday to 7AM Today Intake and Output (Last 24 hours) Intake Oral Intake 600.00 Output Urine Voided 1050.00 Stool Count 2.00 Total Summary Total Intake 600.00 Total Output 1050.00 Fluid Balance -450.00 Physical Exam Constitutional: no distress, appears stated age ENT: No thyroid masses Respiratory: Clear to auscultation, no adventitious sounds Cardiovascular: RRR, S1 and S2, no murmurs, JVP 12-13 cm H2O, pedal edema GI: Soft, nondistended, bowel sounds present Musculoskeletal: no deformity Skin: Warm to touch, dry Neurological: Alert and oriented Weight Current Weight Dosing Weight: 166 kg (08/16/22) Current Weight: 154.3 kg (08/17/22) Dosing Weight: 169.3 kg (08/16/22) Current Weight: 157.8 kg (08/16/22) Medications Medications (5) Active Scheduled: (5) aspirin 81 mg Chewable 81 mg 1 tab(s), Oral, qDayM carvedilol 25 mg tablet 25 mg 1 tab(s), Oral, BID heparin 5,000 units/mL (1 mL) vial 5,000 unit(s) 1 mL, Subcutaneous, q8h insulin lispro 100 units/mL Soln (3 mL) Give 0-10 units/dose, Subcutaneous, TIDAC isosorbide mononitrate 30 mg ER tablet 30 mg 1 tab(s), Oral, qDayAC Continuous: (0) PRN: (0) Lab Results 08/17 02:48 WBC: 4.6 Hgb: 14.1 Hct: 45.1 Platelet: 128 L Neutrophil %: 70.3 Glucose Level: 141 H Sodium Level: 136 Potassium Level: 4.1 BUN: 81.0 H Creatinine Lvl (s): 2.72 H EKG No qualifying data available. Assessment/Plan SOB - Shortness of breath Acute hypoxic hypercapnic respiratory failure Acute on chronic systolic and diastolic heart failure LVEF decreased to 25 to 30% Probable PHTN (dilated pulmonary trunk, contrast reflux in IVC) Nonischemic cardiomyopathy Mild angiographic CAD 01/2021 History of pulmonary embolism Diabetes, hypertension, ANDRADE, ascending aortic aneurysm 5.[address] not interested in follow-up or surgery, obesity Scattered calcified lung, 1.2 cm granulomas irregular nodule consolidation BRYANNA likely secondary to contrast exposure Hyperkalemia CVC: AQ Mr. Muniz is a 67-year-old man with NICM, follows with Dr. Jin in clinic, he presents ER withacute decompensated heart failure of few days duration of unclear trigger. He is compliant with hismedications including bumetanide 2 mg p.o. 3 times daily, minimizes salt intake, no recent chest pain, palpitation, however endorses some lightheadedness. No evidence of A-fib in our available records. Surface echo 1. Left ventricle: The cavity size is increased. Wall thickness is normal. Systolic function is severely reduced. The estimated ejection fraction is 25-30%. There is severe diffuse hypokinesis. Grade II diastolic dysfunction. 2. Aortic valve: Transvalvular velocity is increased. There is moderate stenosis. The LVOT to aortic valve VTI ratio is 0.34. 3. Mitral valve: The annulus is mildly calcified. The leaflets are moderately thickened. Thickening. 4. Right ventricle: The cavity size is increased. 5. Right atrium: The atrium is dilated. Continue dialysis for Monday, discussed with nephrology Digitally Signed by GREG NAVARRO MD on 08/17/2022 05:11 PM [facility] [id number] Cardiology Progress note Date of Service 08/17/2022 Chief Complaint Systolic heart failure exacerbation Subjective Seen and examined. Urine output 870 overnight, creatinine stable at 2.72. Plan for further dialysis. Objective Vitals and Measurements T: 36.5 C (Oral) TMIN: 36.5 C (Oral) TMAX: 36.8 C (Oral) HR: 63(Monitored) RR: 20 BP: 113/60 SpO2: 91% WT: 154.3 kg Intake and Output 7AM Yesterday to 7AM Today Intake and Output (Last 24 hours) Intake Oral Intake 600.00 Output Urine Voided 1050.00 Stool Count 2.00 Total Summary Total Intake 600.00 Total Output 1050.00 Fluid Balance -450.00 Physical Exam Constitutional: no distress, appears stated age ENT: No thyroid masses Respiratory: Clear to auscultation, no adventitious sounds Cardiovascular: RRR, S1 and S2, no murmurs, JVP 12-13 cm H2O, pedal edema GI: Soft, nondistended, bowel sounds present Musculoskeletal: no deformity Skin: Warm to touch, dry Neurological: Alert and oriented Weight Current Weight Dosing Weight: 166 kg (08/16/22) Current Weight: 154.3 kg (08/17/22) Dosing Weight: 169.3 kg (08/16/22) Current Weight: 157.8 kg (08/16/22) Medications Medications (5) Active Scheduled: (5) aspirin 81 mg Chewable 81 mg 1 tab(s), Oral, qDayM carvedilol 25 mg tablet 25 mg 1 tab(s), Oral, BID heparin 5,000 units/mL (1 mL) vial 5,000 unit(s) 1 mL, Subcutaneous, q8h insulin lispro 100 units/mL Soln (3 mL) Give 0-10 units/dose, Subcutaneous, TIDAC isosorbide mononitrate 30 mg ER tablet 30 mg 1 tab(s), Oral, qDayAC Continuous: (0) PRN: (0) Lab Results 08/17 02:48 WBC: 4.6 Hgb: 14.1 Hct: 45.1 Platelet: 128 L Neutrophil %: 70.3 Glucose Level: 141 H Sodium Level: 136 Potassium Level: 4.1 BUN: 81.0 H Creatinine Lvl (s): 2.72 H EKG No qualifying data available. Assessment/Plan SOB - Shortness of breath Acute hypoxic hypercapnic respiratory failure Acute on chronic systolic and diastolic heart failure LVEF decreased to 25 to 30% Probable PHTN (dilated pulmonary trunk, contrast reflux in IVC) Nonischemic cardiomyopathy Mild angiographic CAD 01/2021 History of pulmonary embolism Diabetes, hypertension, ANDRADE, ascending aortic aneurysm 5.[address] not interested in follow-up or surgery, obesity Scattered calcified lung, 1.2 cm granulomas irregular nodule consolidation BRYANNA likely secondary to contrast exposure Hyperkalemia CVC: AQ Mr. Muniz is a 67-year-old man with NICM, follows with Dr. Jin in clinic, he presents ER withacute decompensated heart failure of few days duration of unclear trigger. He is compliant with hismedications including bumetanide 2 mg p.o. 3 times daily, minimizes salt intake, no recent chest pain, palpitation, however endorses some lightheadedness. No evidence of A-fib in our available records. Surface echo 1. Left ventricle: The cavity size is increased. Wall thickness is normal. Systolic function is severely reduced. The estimated ejection fraction is 25-30%. There is severe diffuse hypokinesis. Grade II diastolic dysfunction. 2. Aortic valve: Transvalvular velocity is increased. There is moderate stenosis. The LVOT to aortic valve VTI ratio is 0.34. 3. Mitral valve: The annulus is mildly calcified. The leaflets are moderately thickened. Thickening. 4. Right ventricle: The cavity size is increased. 5. Right atrium: The atrium is dilated. Continue dialysis for Monday, discussed with nephrology Digitally Signed by GREG NAVARRO MD on 08/17/2022 05:11 PM [facility] [id number] Pulmonary Progress note Date of Service 08/17/2022 Subjective breathing easier Objective Vitals and Measurements T: 36.5 C (Oral) TMIN: 36.5 C (Oral) TMAX: 36.8 C (Oral) HR: 63(Monitored) RR: 20 BP: 113/60 SpO2: 91% WT: 154.3 kg Intake and Output 7AM Yesterday to 7AM Today Intake and Output (Last 24 hours) Intake Oral Intake 600.00 Output Urine Voided 1050.00 Stool Count 2.00 Total Summary Total Intake 600.00 Total Output 1050.00 Fluid Balance -450.00 Physical Exam General-no acute distress, alert HEENT-normocephalic, atraumatic, extraocular movements intact, dialysis line in right neck Pulmonary-relatively clear, no wheeze Cardiovascular-regular, no appreciable murmurs, gallops or rubs Abdomen-soft, morbidly obese, bowel sounds positive, nontender Extremities-bilateral lower extremity edema with chronic venous stasis changes noted, no cyanosis or clubbing Neurologic-grossly nonfocal Weight Current Weight Dosing Weight: 166 kg (08/16/22) Current Weight: 154.3 kg (08/17/22) Dosing Weight: 169.3 kg (08/16/22) Current Weight: 157.8 kg (08/16/22) Medications Medications (5) Active Scheduled: (5) aspirin 81 mg Chewable 81 mg 1 tab(s), Oral, qDayM carvedilol 25 mg tablet 25 mg 1 tab(s), Oral, BID heparin 5,000 units/mL (1 mL) vial 5,000 unit(s) 1 mL, Subcutaneous, q8h insulin lispro 100 units/mL Soln (3 mL) Give 0-10 units/dose, Subcutaneous, TIDAC isosorbide mononitrate 30 mg ER tablet 30 mg 1 tab(s), Oral, qDayAC Continuous: (0) PRN: (0) Lab Results 08/17 02:48 WBC: 4.6 Hgb: 14.1 Hct: 45.1 Platelet: 128 L Neutrophil %: 70.3 Glucose Level: 141 H Sodium Level: 136 Potassium Level: 4.1 BUN: 81.0 H Creatinine Lvl (s): 2.72 H 08/16 04:33 WBC: 3.8 L Hgb: 14.2 Hct: 45.2 Platelet: 141 L Neutrophil %: 65.4 Glucose Level: 124 H Sodium Level: 140 Potassium Level: 3.9 BUN: 102.0 C Creatinine Lvl (s): 2.18 H EKG No qualifying data available. Assessment/Plan SOB - Shortness of breath Assessment 1. Acute on chronic hypercapnic respiratory failure and acute hypoxic respiratory failure 2. Heart failure exacerbation 3. ANDRADE/OHS on AVAPS at home with 5 L bleeding at night 4. BRYANNA on CKD Plan: Acute on chronic hypercapnia likely secondary to heart failure exacerbation. AM BiPAP at . Uses AVAPS at home Wean FiO2 to maintain saturation more than 90%, have asked his bedside nurse to keep him closer to the 88 to 92% range Abnormal opacities on CT scan likely due to volume overload and atelectasis. He does not have any infectious symptoms. He will need a repeat CT scan as outpatient in 2 to 3 months to follow-up for resolution - Uses [facility]; may need different homegoing NIV, ? [facility] Mark M[facility]ugh M.D., [facility] Digitally Signed by MARK MCHUGH MD on 08/17/2022 03:48 PM [facility] [id number] Nephrology Progress note Date of Service 08/17/2022 Chief Complaint Chronic shortness of breath. Subjective Patient is sitting comfortably in chair. at bedside. Complains of chronic shortness of breath, currently on 5 L O2 via NC. Denies any chest pain, nausea, abdominal pain. States that he is urinating less. Urine output of 1100 mL over 24 hours. Objective Vitals and Measurements T: 36.7 C (Oral) TMIN: 36.5 C (Oral) TMAX: 36.8 C (Oral) HR: 65(Monitored) RR: 20 BP: 121/68 SpO2: 91% WT: 154.3 kg Physical Exam HEENT: PERRLA Neck: Right temporary HD catheter present Respiratory: Bilateral air entry is present, decreased at bases Cardiovascular: S1-S2 present, no rub Abdomen: Morbidly obese, soft, NT, BS present Extremities: Bilateral 1+ 2+ pedal edema present, PP present Lab Results 08/17 02:48 WBC: 4.6 Hgb: 14.1 Hct: 45.1 Platelet: 128 L Neutrophil %: 70.3 Glucose Level: 141 H Sodium Level: 136 Potassium Level: 4.1 BUN: 81.0 H Creatinine Lvl (s): 2.72 H CO2: 36 Calcium: 9.3 Magnesium: 2.4 08/16 04:33 WBC: 3.8 L Hgb: 14.2 Hct: 45.2 Platelet: 141 L Neutrophil %: 65.4 Glucose Level: 124 H Sodium Level: 140 Potassium Level: 3.9 BUN: 102.0 C Creatinine Lvl (s): 2.18 H Assessment/Plan Non-oliguric BRYANNA on stage III CKD: Slight worsening of renal function, monitor without dialysis today. If creatinine continues to worsen on tomorrow's labs, patient will most likely need acute outpatient dialysis Volume overload: Ultrafiltration/fluid removal with dialysis as tolerated. Significant improvement in volume status Acute on chronic CHF with reduced EF: Fluid removal with dialysis/ultrafiltration as tolerated Metabolic alkalosis Acute on chronic respiratory failure: Decreasing oxygen requirement Hypertension: BP acceptable Morbid obesity Pulmonary hypertension Continue with current management. Monitor urine output. Labs in AM. If renal function continues to worsen on tomorrow's labs, he will need PermCath placement and acute outpatient dialysis arrangements. If renal function remains stable or improves, he can be discharged without dialysis on oral diuretics/Bumex. Discussed with patient, at bedside at length. Also discussed with Dr. Jin and corrections caseworker. Will follow. Digitally Signed by JEREMIE GRIMM MD on 08/17/2022 12:44 PM [facility] [id number] Cardiology Progress note Date of Service 08/16/2022 Chief Complaint Systolic heart failure exacerbation Subjective Urine output 2 L overnight on Bumex infusion. BUN rising, creatinine 2.18. Denies chest pain or palpitations. Objective Vitals and Measurements T: 36.5 C (Oral) TMIN: 36.4 C (Oral) TMAX: 36.8 C (Oral) HR: 66(Monitored) RR: 18 BP: 119/53 SpO2: 94% WT: 166 kg Intake and Output 7AM Yesterday to 7AM Today Intake and Output (Last 24 hours) Intake Oral Intake 475.00 Output Urine Voided 570.00 Hemodialysis 2394.00 Stool Count 1.00 Total Summary Total Intake 475.00 Total Output 2964.00 Fluid Balance -2489.00 Physical Exam Constitutional: no distress, appears stated age ENT: No thyroid masses Respiratory: Basilar crackles Cardiovascular: RRR, S1 and S2, no murmurs, JVP 12-13 cm H2O, no pedal edema GI: Soft, nondistended, bowel sounds present Musculoskeletal: no deformity Skin: Warm to touch, dry Neurological: Alert and oriented Weight Current Weight Dosing Weight: 166 kg (08/16/22) Current Weight: 157.8 kg (08/16/22) Dosing Weight: 169.3 kg (08/16/22) Current Weight: 176.45 kg (08/15/22) Medications Medications (5) Active Scheduled: (5) aspirin 81 mg Chewable 81 mg 1 tab(s), Oral, qDayM carvedilol 25 mg tablet 25 mg 1 tab(s), Oral, BID heparin 5,000 units/mL (1 mL) vial 5,000 unit(s) 1 mL, Subcutaneous, q8h insulin lispro 100 units/mL Soln (3 mL) Give 0-10 units/dose, Subcutaneous, TIDAC isosorbide mononitrate 30 mg ER tablet 30 mg 1 tab(s), Oral, qDayAC Continuous: (0) PRN: (0) Lab Results 08/16 04:33 WBC: 3.8 L Hgb: 14.2 Hct: 45.2 Platelet: 141 L Neutrophil %: 65.4 Glucose Level: 124 H Sodium Level: 140 Potassium Level: 3.9 BUN: 102.0 C Creatinine Lvl (s): 2.18 H EKG No qualifying data available. Assessment/Plan SOB - Shortness of breath Acute hypoxic hypercapnic respiratory failure Acute on chronic systolic and diastolic heart failure LVEF decreased to 25 to 30% Probable PHTN (dilated pulmonary trunk, contrast reflux in IVC) Nonischemic cardiomyopathy Mild angiographic CAD 01/2021 History of pulmonary embolism Diabetes, hypertension, ANDRADE, ascending aortic aneurysm 5.[address] not interested in follow-up or surgery, obesity Scattered calcified lung, 1.2 cm granulomas irregular nodule consolidation BRYANNA likely secondary to contrast exposure Hyperkalemia CVC: AQ Mr. Muniz is a 67-year-old man with NICM, follows with Dr. Jin in clinic, he presents ER withacute decompensated heart failure of few days duration of unclear trigger. He is compliant with hismedications including bumetanide 2 mg p.o. 3 times daily, minimizes salt intake, no recent chest pain, palpitation, however endorses some lightheadedness. No evidence of A-fib in our available records. Surface echo 1. Left ventricle: The cavity size is increased. Wall thickness is normal. Systolic function is severely reduced. The estimated ejection fraction is 25-30%. There is severe diffuse hypokinesis. Grade II diastolic dysfunction. 2. Aortic valve: Transvalvular velocity is increased. There is moderate stenosis. The LVOT to aortic valve VTI ratio is 0.34. 3. Mitral valve: The annulus is mildly calcified. The leaflets are moderately thickened. Thickening. 4. Right ventricle: The cavity size is increased. 5. Right atrium: The atrium is dilated. Discontinue Bumex infusion due to rising BUN Hemodialysis today Digitally Signed by GREG NAVARRO MD on 08/16/2022 04:45 PM [facility] [id number] Pulmonary Progress note Date of Service 08/16/2022 Subjective breathing a bit easier less Cough Objective Vitals and Measurements T: 36.5 C (Oral) TMIN: 36.4 C (Oral) TMAX: 36.8 C (Oral) HR: 66(Monitored) RR: 18 BP: 119/53 SpO2: 94% WT: 166 kg Intake and Output 7AM Yesterday to 7AM Today Intake and Output (Last 24 hours) Intake Oral Intake 475.00 Output Urine Voided 570.00 Hemodialysis 2394.00 Stool Count 1.00 Total Summary Total Intake 475.00 Total Output 2964.00 Fluid Balance -2489.00 Physical Exam General-no acute distress, alert HEENT-normocephalic, atraumatic, extraocular movements intact, dialysis line in right neck Pulmonary-relatively clear, no wheeze Cardiovascular-regular, no appreciable murmurs, gallops or rubs Abdomen-soft, morbidly obese, bowel sounds positive, nontender Extremities-bilateral lower extremity edema with chronic venous stasis changes noted, no cyanosis or clubbing Neurologic-grossly nonfocal Weight Current Weight Dosing Weight: 166 kg (08/16/22) Current Weight: 157.8 kg (08/16/22) Dosing Weight: 169.3 kg (08/16/22) Current Weight: 176.45 kg (08/15/22) Medications Medications (5) Active Scheduled: (5) aspirin 81 mg Chewable 81 mg 1 tab(s), Oral, qDayM carvedilol 25 mg tablet 25 mg 1 tab(s), Oral, BID heparin 5,000 units/mL (1 mL) vial 5,000 unit(s) 1 mL, Subcutaneous, q8h insulin lispro 100 units/mL Soln (3 mL) Give 0-10 units/dose, Subcutaneous, TIDAC isosorbide mononitrate 30 mg ER tablet 30 mg 1 tab(s), Oral, qDayAC Continuous: (0) PRN: (0) Lab Results 08/16 04:33 WBC: 3.8 L Hgb: 14.2 Hct: 45.2 Platelet: 141 L Neutrophil %: 65.4 Glucose Level: 124 H Sodium Level: 140 Potassium Level: 3.9 BUN: 102.0 C Creatinine Lvl (s): 2.18 H EKG No qualifying data available. Assessment/Plan SOB - Shortness of breath Assessment 1. Acute on chronic hypercapnic respiratory failure and acute hypoxic respiratory failure 2. Heart failure exacerbation 3. ANDRADE/OHS on AVAPS at home with 5 L bleeding at night 4. BRYANNA on CKD Plan: Acute on chronic hypercapnia likely secondary to heart failure exacerbation. Patient currently not in any respiratory distress normal mentation and no asterixis on exam. Repeat ABG in AM BiPAP for now Wean FiO2 to maintain saturation more than 90%, have asked his bedside nurse to keep him closer to the 88 to 92% range Abnormal opacities on CT scan likely due to volume overload and atelectasis. He does not have any infectious symptoms. He will need a repeat CT scan as outpatient in 2 to 3 months to follow-up for resolution [facility]ugh [facility]D., [facility] Digitally Signed by MARK MCHUGH MD on 08/16/2022 04:36 PM [place] [id number] Cardiology Progress note Date of Service 08/16/2022 Chief Complaint Systolic heart failure exacerbation Subjective Urine output 2 L overnight on Bumex infusion. BUN rising, creatinine 2.18. Denies chest pain or palpitations. Objective Vitals and Measurements T: 36.5 C (Oral) TMIN: 36.4 C (Oral) TMAX: 36.8 C (Oral) HR: 66(Monitored) RR: 18 BP: 119/53 SpO2: 94% WT: 166 kg Intake and Output 7AM Yesterday to 7AM Today Intake and Output (Last 24 hours) Intake Oral Intake 475.00 Output Urine Voided 570.00 Hemodialysis 2394.00 Stool Count 1.00 Total Summary Total Intake 475.00 Total Output 2964.00 Fluid Balance -2489.00 Physical Exam Constitutional: no distress, appears stated age ENT: No thyroid masses Respiratory: Basilar crackles Cardiovascular: RRR, S1 and S2, no murmurs, JVP 12-13 cm H2O, no pedal edema GI: Soft, nondistended, bowel sounds present Musculoskeletal: no deformity Skin: Warm to touch, dry Neurological: Alert and oriented Weight Current Weight Dosing Weight: 166 kg (08/16/22) Current Weight: 157.8 kg (08/16/22) Dosing Weight: 169.3 kg (08/16/22) Current Weight: 176.45 kg (08/15/22) Medications Medications (5) Active Scheduled: (5) aspirin 81 mg Chewable 81 mg 1 tab(s), Oral, qDayM carvedilol 25 mg tablet 25 mg 1 tab(s), Oral, BID heparin 5,000 units/mL (1 mL) vial 5,000 unit(s) 1 mL, Subcutaneous, q8h insulin lispro 100 units/mL Soln (3 mL) Give 0-10 units/dose, Subcutaneous, TIDAC isosorbide mononitrate 30 mg ER tablet 30 mg 1 tab(s), Oral, qDayAC Continuous: (0) PRN: (0) Lab Results 08/16 04:33 WBC: 3.8 L Hgb: 14.2 Hct: 45.2 Platelet: 141 L Neutrophil %: 65.4 Glucose Level: 124 H Sodium Level: 140 Potassium Level: 3.9 BUN: 102.0 C Creatinine Lvl (s): 2.18 H EKG No qualifying data available. Assessment/Plan SOB - Shortness of breath Acute hypoxic hypercapnic respiratory failure Acute on chronic systolic and diastolic heart failure LVEF decreased to 25 to 30% Probable PHTN (dilated pulmonary trunk, contrast reflux in IVC) Nonischemic cardiomyopathy Mild angiographic CAD 01/2021 History of pulmonary embolism Diabetes, hypertension, ANDRADE, ascending aortic aneurysm 5.[address] not interested in follow-up or surgery, obesity Scattered calcified lung, 1.2 cm granulomas irregular nodule consolidation BRYANNA likely secondary to contrast exposure Hyperkalemia CVC: AQ Mr. Muniz is a 67-year-old man with NICM, follows with Dr. Jin in clinic, he presents ER withacute decompensated heart failure of few days duration of unclear trigger. He is compliant with hismedications including bumetanide 2 mg p.o. 3 times daily, minimizes salt intake, no recent chest pain, palpitation, however endorses some lightheadedness. No evidence of A-fib in our available records. Surface echo 1. Left ventricle: The cavity size is increased. Wall thickness is normal. Systolic function is severely reduced. The estimated ejection fraction is 25-30%. There is severe diffuse hypokinesis. Grade II diastolic dysfunction. 2. Aortic valve: Transvalvular velocity is increased. There is moderate stenosis. The LVOT to aortic valve VTI ratio is 0.34. 3. Mitral valve: The annulus is mildly calcified. The leaflets are moderately thickened. Thickening. 4. Right ventricle: The cavity size is increased. 5. Right atrium: The atrium is dilated. Discontinue Bumex infusion due to rising BUN Hemodialysis today Digitally Signed by GREG NAVARRO MD on 08/16/2022 04:45 PM [facility] [id number] Nephrology Progress note Date of Service 08/16/2022 Chief Complaint Shortness of breath. Subjective Patient was seen earlier in the morning while on dialysis. Note is being documented now. Patient is laying in bed, complains of shortness of breath. Denies any chest pain, nausea, abdominal pain. Leg edema is improving. Urine output declining, 575 mL only over last 24 hours. Bumex drip was discontinued. Objective Vitals and Measurements T: 36.5 C (Oral) TMIN: 36.4 C (Oral) TMAX: 36.8 C (Oral) HR: 66(Monitored) RR: 18 BP: 119/53 SpO2: 94% WT: 166 kg Physical Exam HEENT: PERRLA Neck: Right temporary HD catheter present Respiratory: Bilateral air entry is present, decreased at bases Cardiovascular: S1-S2 present, no rub Abdomen: Morbidly obese, soft, NT, BS present Extremities: Bilateral 1+ 2+ pedal edema present, PP present Medications Medications (5) Active Scheduled: (5) aspirin 81 mg Chewable 81 mg 1 tab(s), Oral, qDayM carvedilol 25 mg tablet 25 mg 1 tab(s), Oral, BID heparin 5,000 units/mL (1 mL) vial 5,000 unit(s) 1 mL, Subcutaneous, q8h insulin lispro 100 units/mL Soln (3 mL) Give 0-10 units/dose, Subcutaneous, TIDAC isosorbide mononitrate 30 mg ER tablet 30 mg 1 tab(s), Oral, qDayAC Continuous: (0) PRN: (0) Lab Results 08/16 04:33 WBC: 3.8 L Hgb: 14.2 Hct: 45.2 Platelet: 141 L Neutrophil %: 65.4 Glucose Level: 124 H Sodium Level: 140 Potassium Level: 3.9 BUN: 102.0 C Creatinine Lvl (s): 2.18 H CO2: 36 Calcium: 9.2 Magnesium: 2.3 Assessment/Plan Non-oliguric BRYANNA on stage III CKD: Slight worsening of creatinine but significant worsening of BUN.Had dialysis today Volume overload: Ultrafiltration/fluid removal with dialysis as tolerated Acute on chronic CHF with reduced EF: Fluid removal with dialysis/ultrafiltration Metabolic alkalosis: Due to diuretics Acute on chronic respiratory failure: Decreasing oxygen requirement Hypertension: BP acceptable Morbid obesity Pulmonary hypertension Continue with current management. Monitor urine output and renal function for renal recovery. Diuretics have been discontinued. Agree with that. Labs in AM. Discussed with patient at length. Also discussed with Dr. Jin. Will follow. Digitally Signed by JEREMIE GRIMM MD on 08/16/2022 04:01 PM [id number] Cardiology Progress note Date of Service 08/15/22 Chief Complaint Decompensated systolic heart failure Subjective Seen and examined. Urine output 4 L overnight, creatinine 1.86. Dyspnea improving. Objective Vitals and Measurements T: 36.5 C (Oral) TMIN: 36.2 C (Skin) TMAX: 37.0 C (Oral) HR: 71(Monitored) RR: 18 BP: 122/62 SpO2: 92% WT: 176.45 kg Intake and Output 7AM Yesterday to 7AM Today Intake and Output (Last 24 hours) Intake Oral Intake 300.00 Output Urine Voided 1850.00 Hemodialysis 1600.00 Total Summary Total Intake 300.00 Total Output 3450.00 Fluid Balance -3150.00 Physical Exam Constitutional: no distress, appears stated age ENT: No thyroid masses Respiratory: Basilar crackles Cardiovascular: RRR, S1 and S2, no murmurs, JVP 12-13 cm H2O, no pedal edema GI: Soft, nondistended, bowel sounds present Musculoskeletal: no deformity Skin: Warm to touch, dry Neurological: Alert and oriented Weight Current Weight Dosing Weight: 0 kg (08/11/22) Current Weight: 176.45 kg (08/15/22) Dosing Weight: 170.7 kg (08/08/22) Current Weight: 159.4 kg (08/15/22) Medications Medications (6) Active Scheduled: (5) aspirin 81 mg Chewable 81 mg 1 tab(s), Oral, qDayM carvedilol 25 mg tablet 25 mg 1 tab(s), Oral, BID heparin 5,000 units/mL (1 mL) vial 5,000 unit(s) 1 mL, Subcutaneous, q8h insulin lispro 100 units/mL Soln (3 mL) Give 0-10 units/dose, Subcutaneous, TIDAC isosorbide mononitrate 30 mg ER tablet 30 mg 1 tab(s), Oral, qDayAC Continuous: (1) bumetanide 10 mg [0.5 mg/hr] + Sodium Chloride 0.9% 60 mL 60 mL, Intravenous, 5 mL/hr PRN: (0) Lab Results 08/15 03:02 WBC: 4.1 L Hgb: 14.1 Hct: 44.3 Platelet: 149 L Neutrophil %: 69.8 Glucose Level: 140 H Sodium Level: 138 Potassium Level: 3.8 BUN: 68.0 H Creatinine Lvl (s): 1.86 H EKG No qualifying data available. Assessment/Plan SOB - Shortness of breath Acute hypoxic hypercapnic respiratory failure Acute on chronic systolic and diastolic heart failure LVEF decreased to 25 to 30% Probable PHTN (dilated pulmonary trunk, contrast reflux in IVC) Nonischemic cardiomyopathy Mild angiographic CAD 01/2021 History of pulmonary embolism Diabetes, hypertension, ANDRADE, ascending aortic aneurysm 5.[address] not interested in follow-up or surgery, obesity Scattered calcified lung, 1.2 cm granulomas irregular nodule consolidation BRYANNA likely secondary to contrast exposure Hyperkalemia CVC: AQ Mr. Muniz is a 67-year-old man with NICM, follows with Dr. Jin in clinic, he presents ER withacute decompensated heart failure of few days duration of unclear trigger. He is compliant with hismedications including bumetanide 2 mg p.o. 3 times daily, minimizes salt intake, no recent chest pain, palpitation, however endorses some lightheadedness. No evidence of A-fib in our available records. Surface echo 1. Left ventricle: The cavity size is increased. Wall thickness is normal. Systolic function is severely reduced. The estimated ejection fraction is 25-30%. There is severe diffuse hypokinesis. Grade II diastolic dysfunction. 2. Aortic valve: Transvalvular velocity is increased. There is moderate stenosis. The LVOT to aortic valve VTI ratio is 0.34. 3. Mitral valve: The annulus is mildly calcified. The leaflets are moderately thickened. Thickening. 4. Right ventricle: The cavity size is increased. 5. Right atrium: The atrium is dilated. Plan: Continue with Bumex infusion and hemodialysis to achieve euvolemia Appreciate nephrology input Digitally Signed by GREG NAVARRO MD on 08/15/2022 05:35 PM [facility] [id number] Nephrology Progress note Date of Service 08/15/2022 Chief Complaint No complaints Subjective Patient is in dialysis getting I UF treatment. No acute distress. He denies complaints of dyspnea or chest pain. Urine output was 3850 cc in the last 24 hours. Blood pressure has been within normal limits. Patient remains on a Bumex drip at 0.5 mg/h. Objective Vitals and Measurements T: 36.4 C (Skin) TMIN: 36.4 C (Skin) TMAX: 37.0 C (Oral) HR: 57(Monitored) RR: 18 BP: 112/49 SpO2: 97% WT: 176.45 kg Intake and Output 7AM Yesterday to 7AM Today Intake and Output (Last 24 hours) Intake Oral Intake 300.00 Output Urine Voided 3050.00 Total Summary Total Intake 300.00 Total Output 3050.00 Fluid Balance -2750.00 Physical Exam HEENT: Atraumatic, normocephalic, PERRLA Respiratory: Bilateral air entry present, bases diminished Cardiac: S1 and S2, RRR Abdominal: Large, soft, bowel sounds present x4 Extremities: 1+ bilateral pedal edema present Weight Current Weight Dosing Weight: 0 kg (08/11/22) Current Weight: 176.45 kg (08/15/22) Dosing Weight: 170.7 kg (08/08/22) Current Weight: 159.4 kg (08/15/22) Medications Medications (7) Active Scheduled: (6) aspirin 81 mg Chewable 81 mg 1 tab(s), Oral, qDayM carvedilol 25 mg tablet 25 mg 1 tab(s), Oral, BID heparin 5,000 units/mL (1 mL) vial 5,000 unit(s) 1 mL, Subcutaneous, q8h insulin lispro 100 units/mL Soln (3 mL) Give 0-10 units/dose, Subcutaneous, TIDAC isosorbide mononitrate 30 mg ER tablet 30 mg 1 tab(s), Oral, qDayAC potassium chloride 20 mEq ER tablet 20 mEq 1 tab(s), Oral, Once Continuous: (1) bumetanide 10 mg [0.5 mg/hr] + Sodium Chloride 0.9% 60 mL 60 mL, Intravenous, 5 mL/hr PRN: (0) Lab Results 08/15 03:02 WBC: 4.1 L Hgb: 14.1 Hct: 44.3 Platelet: 149 L Neutrophil %: 69.8 Glucose Level: 140 H Sodium Level: 138 Potassium Level: 3.8 BUN: 68.0 H Creatinine Lvl (s): 1.86 H 08/14 03:40 WBC: 3.7 L Hgb: 14.1 Hct: 44.7 Platelet: 149 L Neutrophil %: 71.0 Glucose Level: 108 Sodium Level: 139 Potassium Level: 3.9 BUN: 60.0 H Creatinine Lvl (s): 1.75 H EKG No qualifying data available. Assessment/Plan Orders: Basic Metabolic Panel Nonoliguric acute kidney injury on chronic kidney disease stage III: Creatinine remaining stable, GFR 36, urine output more than adequate Hyperkalemia: Resolved Acute on chronic CHF exacerbation with reduced EF: 2 L off with isolated ultrafiltration treatment today Metabolic alkalosis: due to diuretics, on Bumex drip Acute on chronic respiratory failure: 10 L NC humidified. Hypertension: BP acceptable Diabetes Morbid obesity Pulmonary hypertension Plan: Isolated ultrafiltration for 2 L today, Bumex drip as ordered per cardiology, monitor renal function panel and urine output for renal recovery. Continue all other current management. Labs in the a.m. Digitally Signed by SOFI LAW on 08/15/2022 11:51 AM [facility] [id number] Cardiology Progress note Date of Service 08/15/22 Chief Complaint Decompensated systolic heart failure Subjective Seen and examined. Urine output 4 L overnight, creatinine 1.86. Dyspnea improving. Objective Vitals and Measurements T: 36.5 C (Oral) TMIN: 36.2 C (Skin) TMAX: 37.0 C (Oral) HR: 71(Monitored) RR: 18 BP: 122/62 SpO2: 92% WT: 176.45 kg Intake and Output 7AM Yesterday to 7AM Today Intake and Output (Last 24 hours) Intake Oral Intake 300.00 Output Urine Voided 1850.00 Hemodialysis 1600.00 Total Summary Total Intake 300.00 Total Output 3450.00 Fluid Balance -3150.00 Physical Exam Constitutional: no distress, appears stated age ENT: No thyroid masses Respiratory: Basilar crackles Cardiovascular: RRR, S1 and S2, no murmurs, JVP 12-13 cm H2O, no pedal edema GI: Soft, nondistended, bowel sounds present Musculoskeletal: no deformity Skin: Warm to touch, dry Neurological: Alert and oriented Weight Current Weight Dosing Weight: 0 kg (08/11/22) Current Weight: 176.45 kg (08/15/22) Dosing Weight: 170.7 kg (08/08/22) Current Weight: 159.4 kg (08/15/22) Medications Medications (6) Active Scheduled: (5) aspirin 81 mg Chewable 81 mg 1 tab(s), Oral, qDayM carvedilol 25 mg tablet 25 mg 1 tab(s), Oral, BID heparin 5,000 units/mL (1 mL) vial 5,000 unit(s) 1 mL, Subcutaneous, q8h insulin lispro 100 units/mL Soln (3 mL) Give 0-10 units/dose, Subcutaneous, TIDAC isosorbide mononitrate 30 mg ER tablet 30 mg 1 tab(s), Oral, qDayAC Continuous: (1) bumetanide 10 mg [0.5 mg/hr] + Sodium Chloride 0.9% 60 mL 60 mL, Intravenous, 5 mL/hr PRN: (0) Lab Results 08/15 03:02 WBC: 4.1 L Hgb: 14.1 Hct: 44.3 Platelet: 149 L Neutrophil %: 69.8 Glucose Level: 140 H Sodium Level: 138 Potassium Level: 3.8 BUN: 68.0 H Creatinine Lvl (s): 1.86 H EKG No qualifying data available. Assessment/Plan SOB - Shortness of breath Acute hypoxic hypercapnic respiratory failure Acute on chronic systolic and diastolic heart failure LVEF decreased to 25 to 30% Probable PHTN (dilated pulmonary trunk, contrast reflux in IVC) Nonischemic cardiomyopathy Mild angiographic CAD 01/2021 History of pulmonary embolism Diabetes, hypertension, ANDRADE, ascending aortic aneurysm 5.[address] not interested in follow-up or surgery, obesity Scattered calcified lung, 1.2 cm granulomas irregular nodule consolidation BRYANNA likely secondary to contrast exposure Hyperkalemia CVC: AQ Mr. Muniz is a 67-year-old man with NICM, follows with Dr. Jin in clinic, he presents ER withacute decompensated heart failure of few days duration of unclear trigger. He is compliant with hismedications including bumetanide 2 mg p.o. 3 times daily, minimizes salt intake, no recent chest pain, palpitation, however endorses some lightheadedness. No evidence of A-fib in our available records. Surface echo 1. Left ventricle: The cavity size is increased. Wall thickness is normal. Systolic function is severely reduced. The estimated ejection fraction is 25-30%. There is severe diffuse hypokinesis. Grade II diastolic dysfunction. 2. Aortic valve: Transvalvular velocity is increased. There is moderate stenosis. The LVOT to aortic valve VTI ratio is 0.34. 3. Mitral valve: The annulus is mildly calcified. The leaflets are moderately thickened. Thickening. 4. Right ventricle: The cavity size is increased. 5. Right atrium: The atrium is dilated. Plan: Continue with Bumex infusion and hemodialysis to achieve euvolemia Appreciate nephrology input Digitally Signed by GREG NAVARRO MD on 08/15/2022 05:35 PM [facility] [id number] Nephrology Progress note Date of Service 08/15/2022 Chief Complaint No complaints Subjective Patient is in dialysis getting I UF treatment. No acute distress. He denies complaints of dyspnea or chest pain. Urine output was 3850 cc in the last 24 hours. Blood pressure has been within normal limits. Patient remains on a Bumex drip at 0.5 mg/h. Objective Vitals and Measurements T: 36.4 C (Skin) TMIN: 36.4 C (Skin) TMAX: 37.0 C (Oral) HR: 57(Monitored) RR: 18 BP: 112/49 SpO2: 97% WT: 176.45 kg Intake and Output 7AM Yesterday to 7AM Today Intake and Output (Last 24 hours) Intake Oral Intake 300.00 Output Urine Voided 3050.00 Total Summary Total Intake 300.00 Total Output 3050.00 Fluid Balance -2750.00 Physical Exam HEENT: Atraumatic, normocephalic, PERRLA Respiratory: Bilateral air entry present, bases diminished Cardiac: S1 and S2, RRR Abdominal: Large, soft, bowel sounds present x4 Extremities: 1+ bilateral pedal edema present Weight Current Weight Dosing Weight: 0 kg (08/11/22) Current Weight: 176.45 kg (08/15/22) Dosing Weight: 170.7 kg (08/08/22) Current Weight: 159.4 kg (08/15/22) Medications Medications (7) Active Scheduled: (6) aspirin 81 mg Chewable 81 mg 1 tab(s), Oral, qDayM carvedilol 25 mg tablet 25 mg 1 tab(s), Oral, BID heparin 5,000 units/mL (1 mL) vial 5,000 unit(s) 1 mL, Subcutaneous, q8h insulin lispro 100 units/mL Soln (3 mL) Give 0-10 units/dose, Subcutaneous, TIDAC isosorbide mononitrate 30 mg ER tablet 30 mg 1 tab(s), Oral, qDayAC potassium chloride 20 mEq ER tablet 20 mEq 1 tab(s), Oral, Once Continuous: (1) bumetanide 10 mg [0.5 mg/hr] + Sodium Chloride 0.9% 60 mL 60 mL, Intravenous, 5 mL/hr PRN: (0) Lab Results 08/15 03:02 WBC: 4.1 L Hgb: 14.1 Hct: 44.3 Platelet: 149 L Neutrophil %: 69.8 Glucose Level: 140 H Sodium Level: 138 Potassium Level: 3.8 BUN: 68.0 H Creatinine Lvl (s): 1.86 H 08/14 03:40 WBC: 3.7 L Hgb: 14.1 Hct: 44.7 Platelet: 149 L Neutrophil %: 71.0 Glucose Level: 108 Sodium Level: 139 Potassium Level: 3.9 BUN: 60.0 H Creatinine Lvl (s): 1.75 H EKG No qualifying data available. Assessment/Plan Orders: Basic Metabolic Panel Nonoliguric acute kidney injury on chronic kidney disease stage III: Creatinine remaining stable, GFR 36, urine output more than adequate Hyperkalemia: Resolved Acute on chronic CHF exacerbation with reduced EF: 2 L off with isolated ultrafiltration treatment today Metabolic alkalosis: due to diuretics, on Bumex drip Acute on chronic respiratory failure: 10 L NC humidified. Hypertension: BP acceptable Diabetes Morbid obesity Pulmonary hypertension Plan: Isolated ultrafiltration for 2 L today, Bumex drip as ordered per cardiology, monitor renal function panel and urine output for renal recovery. Continue all other current management. Labs in the a.m. Digitally Signed by SOFI LAW on 08/15/2022 11:51 AM [facility] [id number] Cardiology Progress note Date of Service 08/14/2022 Subjective Patient seen and examined at bedside. No acute overnight events. Urine output of 3.2 L negative balance of 2.4 L. Oxygen requirement has decreased to 8 L high flow nasal cannula. Objective Vitals and Measurements T: 36.5 C (Oral) TMIN: 36.5 C (Oral) TMAX: 36.8 C (Oral) HR: 66(Monitored) RR: 16 BP: 98/50 SpO2: 91% WT: 159.6 kg Intake and Output 7AM Yesterday to 7AM Today Intake and Output (Last 24 hours) Intake Oral Intake 600.00 Output Urine Voided 2000.00 Hemodialysis 2000.00 Total Summary Total Intake 600.00 Total Output 4000.00 Fluid Balance -3400.00 Physical Exam GENERAL: Pt is comfortable in bed. On high flow nasal cannula PSYCH: Alert and oriented HEENT: Sclera clear, trachea midline NEURO: No focal neurologic deficits ENDO: Thyroid is non-palpable NECK: JVD improved CVS: S1 & S2 audible, Regular Rate and Rhythm, No Murmurs LUNG: Adequate air entry. GI: + BS, Abdomen is Soft EXTREMITIES: Significant lower extremity pitting edema SKIN: Warm & Dry Weight Current Weight Dosing Weight: 0 kg (08/11/22) Current Weight: 159.6 kg (08/14/22) Dosing Weight: 170.7 kg (08/08/22) Current Weight: 163.5 kg (08/13/22) Medications Medications (6) Active Scheduled: (5) aspirin 81 mg Chewable 81 mg 1 tab(s), Oral, qDayM carvedilol 25 mg tablet 25 mg 1 tab(s), Oral, BID heparin 5,000 units/mL (1 mL) vial 5,000 unit(s) 1 mL, Subcutaneous, q8h insulin lispro 100 units/mL Soln (3 mL) Give 0-10 units/dose, Subcutaneous, TIDAC isosorbide mononitrate 30 mg ER tablet 30 mg 1 tab(s), Oral, qDayAC Continuous: (1) bumetanide 10 mg [0.5 mg/hr] + Sodium Chloride 0.9% 60 mL 60 mL, Intravenous, 5 mL/hr PRN: (0) Lab Results 08/14 03:40 WBC: 3.7 L Hgb: 14.1 Hct: 44.7 Platelet: 149 L Neutrophil %: 71.0 Glucose Level: 108 Sodium Level: 139 Potassium Level: 3.9 BUN: 60.0 H Creatinine Lvl (s): 1.75 H 08/13 09:15 WBC: 4.5 Hgb: 14.4 Hct: 46.0 Platelet: 174 Neutrophil %: 82.9 H 08/13 04:07 Glucose Level: 123 H Sodium Level: 139 Potassium Level: 4.1 BUN: 72.0 H Creatinine Lvl (s): 1.78 H EKG No qualifying data available. Assessment/Plan Acute hypoxic hypercapnic respiratory failure Acute on chronic systolic and diastolic heart failure LVEF decreased to 25 to 30% Probable PHTN (dilated pulmonary trunk, contrast reflux in IVC) Nonischemic cardiomyopathy Mild angiographic CAD 01/2021 History of pulmonary embolism Diabetes, hypertension, ANDRADE, ascending aortic aneurysm 5.[address] not interested in follow-up or surgery, obesity Scattered calcified lung, 1.2 cm granulomas irregular nodule consolidation BRYANNA likely secondary to contrast exposure Hyperkalemia CVC: AQ Mr. Mnuiz is a 67-year-old man with NICM, follows with Dr. Jin in clinic, he presents ER withacute decompensated heart failure of few days duration of unclear trigger. He is compliant with hismedications including bumetanide 2 mg p.o. 3 times daily, minimizes salt intake, no recent chest pain, palpitation, however endorses some lightheadedness. No evidence of A-fib in our available records. Surface echo 1. Left ventricle: The cavity size is increased. Wall thickness is normal. Systolic function is severely reduced. The estimated ejection fraction is 25-30%. There is severe diffuse hypokinesis. Grade II diastolic dysfunction. 2. Aortic valve: Transvalvular velocity is increased. There is moderate stenosis. The LVOT to aortic valve VTI ratio is 0.34. 3. Mitral valve: The annulus is mildly calcified. The leaflets are moderately thickened. Thickening. 4. Right ventricle: The cavity size is increased. 5. Right atrium: The atrium is dilated. Plan: Making great urine output and kidney function is stable. Will change patient to a Bumex drip at 0.5mg an hour. Oxygen requirement is decreasing he is currently on 8 L from 12 L high flow nasal cannula. We will monitor kidney function closely. Patient's respiratory status is secondary to ANDRADE/OHS along with CHF, will continue BiPAP. Pulmonary is on board, no new recommendations. Chest x-ray showing bibasilar atelectasis, continue incentive spirometer every hour. Continue 1500 cc fluid restriction. Nephrology is on board for BRYANNA and CKD, no further hemodialysis planned. -Will hold hydralazine to 100mg 3 times daily given soft BP and continue Imdur for afterload reduction -Hold off on RAAS inhibitor given kidney dysfunction and hyperkalemia during admission. Continue monitor BMP. Need further GDMT optimization once hemodynamics and kidney function permits. -Counseled patient extensively about genetic and radiologic testing of his ascending aortic aneurysm (he is brother of dissection age 27) he continues to adamantly decline testing and treatment for it, understanding that he has risk of sudden , his direct family members are aware of the condition and the familial component. -PT OT stated no further therapy needed, rec home independently. -Continue to monitor hemodynamics CODE STATUS: DNR/DNI, except electrical shock and inotropes/vasoactive medicine. Digitally Signed by ROLAND FOUNTAIN MD on 08/14/2022 01:00 PM [facility] [id number] Cardiology Progress note Date of Service 08/13/2022 Subjective Patient seen and examined at bedside. No acute overnight events. Patient going for hemodialysis today. Remains on 12 L high flow nasal cannula. Patient made great urine output with 5.4 L negative balance of 4.3 L in the last 24 hours. Objective Vitals and Measurements T: 36.8 C (Oral) TMIN: 36.5 C (Skin) TMAX: 37.0 C (Oral) HR: 67(Monitored) RR: 18 BP: 104/54 SpO2: 91% WT: 130.6 kg Intake and Output 7AM Yesterday to 7AM Today Intake and Output (Last 24 hours) Intake Oral Intake 1040.00 Output Urine Voided 4875.00 Hemodialysis 2000.00 Stool Count 1.00 Total Summary Total Intake 1040.00 Total Output 6875.00 Fluid Balance -5835.00 Physical Exam Physical Exam GENERAL: Pt is comfortable in bed. On high flow nasal cannula PSYCH: Drowsy and lethargic HEENT: Sclera clear, trachea midline NEURO: No focal neurologic deficits ENDO: Thyroid is non-palpable NECK: JVD improved CVS: S1 & S2 audible, Regular Rate and Rhythm, No Murmurs LUNG: Adequate air entry. GI: + BS, Abdomen is Soft EXTREMITIES: Significant lower extremity pitting edema SKIN: Warm & Dry Weight Current Weight Dosing Weight: 0 kg (08/11/22) Current Weight: 130.6 kg (08/13/22) Dosing Weight: 170.7 kg (08/08/22) Current Weight: 179 kg (08/12/22) Medications Medications (6) Active Scheduled: (6) aspirin 81 mg Chewable 81 mg 1 tab(s), Oral, qDayM bumetanide 0.25 mg/1 mL 4 mL VIAL 2 mg 8 mL, IV Push, TID carvedilol 25 mg tablet 25 mg 1 tab(s), Oral, BID heparin 5,000 units/mL (1 mL) vial 5,000 unit(s) 1 mL, Subcutaneous, q8h hydralazine 50 mg Tablet 100 mg 2 tab(s), Oral, TID isosorbide mononitrate 30 mg ER tablet 30 mg 1 tab(s), Oral, qDayAC Continuous: (0) PRN: (0) Lab Results 08/13 09:15 WBC: 4.5 Hgb: 14.4 Hct: 46.0 Platelet: 174 Neutrophil %: 82.9 H 08/13 04:07 Glucose Level: 123 H Sodium Level: 139 Potassium Level: 4.1 BUN: 72.0 H Creatinine Lvl (s): 1.78 H 08/12 05:48 Glucose Level: 100 Sodium Level: 140 Potassium Level: 4.7 BUN: 91.0 H Creatinine Lvl (s): 2.35 H EKG No qualifying data available. Assessment/Plan Acute hypoxic hypercapnic respiratory failure Acute on chronic systolic and diastolic heart failure LVEF decreased to 25 to 30% Probable PHTN (dilated pulmonary trunk, contrast reflux in IVC) Nonischemic cardiomyopathy Mild angiographic CAD 01/2021 History of pulmonary embolism Diabetes, hypertension, ANDRADE, ascending aortic aneurysm 5.[address] not interested in follow-up or surgery, obesity Scattered calcified lung, 1.2 cm granulomas irregular nodule consolidation BRYANNA likely secondary to contrast exposure Hyperkalemia CVC: AQ Mr. Muniz is a 67-year-old man with NICM, follows with Dr. Jin in clinic, he presents ER withacute decompensated heart failure of few days duration of unclear trigger. He is compliant with hismedications including bumetanide 2 mg p.o. 3 times daily, minimizes salt intake, no recent chest pain, palpitation, however endorses some lightheadedness. No evidence of A-fib in our available records. Surface echo 1. Left ventricle: The cavity size is increased. Wall thickness is normal. Systolic function is severely reduced. The estimated ejection fraction is 25-30%. There is severe diffuse hypokinesis. Grade II diastolic dysfunction. 2. Aortic valve: Transvalvular velocity is increased. There is moderate stenosis. The LVOT to aortic valve VTI ratio is 0.34. 3. Mitral valve: The annulus is mildly calcified. The leaflets are moderately thickened. Thickening. 4. Right ventricle: The cavity size is increased. 5. Right atrium: The atrium is dilated. Plan: Patient went for hemodialysis today with 2 L removed. Kidney function seems to be improving with a creatinine of 1.78 today. We will continue Bumex 2 mg 3 times daily. Remains on high flow nasal cannula at 12 L, believe his respiratory status is secondary to ANDRADE/OHS along with CHF. ABG yesterday showing acute on chronic hypercapnic hypoxic respiratory failure, will continue BiPAP. Pulmonary is onboard, no new recommendations. Chest x-ray showing bibasilar atelectasis, continue incentive spirometer every hour. Continue 1500 cc fluid restriction. -Will hold hydralazine to 100mg 3 times daily given soft BP and continue Imdur for afterload reduction -Hold off on RAAS inhibitor given kidney dysfunction and hyperkalemia during admission. Continue monitor BMP. Need further GDMT optimization once hemodynamics and kidney function permits. -Counseled patient extensively about genetic and radiologic testing of his ascending aortic aneurysm (he is brother of dissection age 25) he continues to adamantly decline testing and treatment for it, understanding that he has risk of sudden , his direct family members are aware of the condition and the familial component. -PT OT stated no further therapy needed, rec home independently. -Continue to monitor hemodynamics CODE STATUS: DNR/DNI, except electrical shock and inotropes/vasoactive medicine. Digitally Signed by ROLAND FOUNTAIN MD on 08/13/2022 04:48 PM Digitally Signed by ROLAND FOUNTAIN MD on 08/13/2022 05:01 PM [facility] [id number] Cardiology Progress note Date of Service 08/09/2022 Subjective Patient seen and examined at bedside. No acute overnight events. Oxygen requirements increased is on 7 L high flow saturating around 90 to 88%. Denies any chest pain. Objective Vitals and Measurements T: 36.6 C (Oral) HR: 66(Monitored) RR: 18 BP: 127/53 SpO2: 90% WT: 171.9 kg Intake and Output 7AM Yesterday to 7AM Today Intake and Output (Last 24 hours) Intake Oral Intake 930.00 Output Urine Voided 1050.00 Total Summary Total Intake 930.00 Total Output 1050.00 Fluid Balance -120.00 Physical Exam GENERAL: Pt is comfortable in bed. PSYCH: Alert and oriented HEENT: Sclera clear, trachea midline NEURO: No focal neurologic deficits ENDO: Thyroid is non-palpable NECK: JVD diffuse crackles CVS: S1 & S2 audible, Regular Rate and Rhythm, No Murmurs LUNG: Adequate air entry. GI: + BS, Abdomen is Soft EXTREMITIES: Significant lower extremity pitting edema SKIN: Warm & Dry Weight Current Weight Dosing Weight: 170.7 kg (08/08/22) Current Weight: 171.9 kg (08/09/22) Dosing Weight: 170.8 kg (08/06/22) Medications Medications (5) Active Scheduled: (5) aspirin 325 mg tablet 325 mg 1 tab(s), Oral, qDay carvedilol 25 mg tablet 25 mg 1 tab(s), Oral, BID heparin 5,000 units/mL (1 mL) vial 5,000 unit(s) 1 mL, Subcutaneous, q8h hydralazine 25 mg Tablet 75 mg 3 tab(s), Oral, TID isosorbide mononitrate 30 mg ER tablet 30 mg 1 tab(s), Oral, qDayAC Continuous: (0) PRN: (0) Lab Results 08/09 03:09 Glucose Level: 158 H Sodium Level: 135 L Potassium Level: 5.1 H BUN: 77.0 H Creatinine Lvl (s): 3.03 H 08/08 05:50 Glucose Level: 106 Sodium Level: 139 Potassium Level: 5.6 H BUN: 91.0 H Creatinine Lvl (s): 2.37 H EKG No qualifying data available. Assessment/Plan Acute hypoxic hypercapnic respiratory failure Acute on chronic systolic and diastolic heart failure LVEF decreased to 25 to 30% Probable PHTN (dilated pulmonary trunk, contrast reflux in IVC) Nonischemic cardiomyopathy Mild angiographic CAD 01/2021 History of pulmonary embolism Diabetes, hypertension, ANDRADE, ascending aortic aneurysm 5.[address] not interested in follow-up or surgery, obesity Scattered calcified lung, 1.2 cm granulomas irregular nodule consolidation BRYANNA likely secondary to contrast exposure Hyperkalemia CVC: AQ Mr. Muniz is a 67-year-old man with NICM, follows with Dr. Jin in clinic, he presents ER withacute decompensated heart failure of few days duration of unclear trigger. He is compliant with hismedications including bumetanide 2 mg p.o. 3 times daily, minimizes salt intake, no recent chest pain, palpitation, however endorses some lightheadedness. No evidence of A-fib in our available records. Surface echo 1. Left ventricle: The cavity size is increased. Wall thickness is normal. Systolic function is severely reduced. The estimated ejection fraction is 25-30%. There is severe diffuse hypokinesis. Grade II diastolic dysfunction. 2. Aortic valve: Transvalvular velocity is increased. There is moderate stenosis. The LVOT to aortic valve VTI ratio is 0.34. 3. Mitral valve: The annulus is mildly calcified. The leaflets are moderately thickened. Thickening. 4. Right ventricle: The cavity size is increased. 5. Right atrium: The atrium is dilated. Plan: -Kidney function continues to deteriorate today creatinine of 3.03 and potassium of 5.1. Nephrologyis on board for BRYANNA and hyperkalemia management. Will defer hyperkalemia management to nephrology. Spoke with nephrology this morning as patient is significantly volume overloaded, they agree with giving Bumex 2 mg IV once to see response. We will monitor BMP. -LFTs and lactic acid within normal limit -Increase hydralazine to 75 3 times daily for afterload reduction and better blood pressure control. -Continue Imdur -Hold off on RAAS inhibitor given BRYANNA and hyperkalemia. Continue monitor BMP. Need further GDMT optimization once hemodynamics and kidney function permits. -Increasing oxygen requirement and hypoxia, pulmonary on board and believe respiratory status is secondary to volume overload. Continue to monitor Yordy appreciated. -Counseled patient extensively about genetic and radiologic testing of his ascending aortic aneurysm (he is brother of dissection age 27) he continues to adamantly decline testing and treatment for it, understanding that he has risk of sudden , his direct family members are aware of the condition and the familial component. -Continue to monitor hemodynamics CODE STATUS: DNR/DNI, except electrical shock and inotropes/vasoactive medicine. Digitally Signed by ROLAND FOUNTAIN MD on 08/09/2022 01:00 PM Digitally Signed by ROLAND FOUNTAIN MD on 08/09/2022 01:00 PM [facility] [id number] Cardiology Progress note Date of Service 08/10/2022 Subjective Patient seen and examined at bedside. Complaining of worsening shortness of breath. Urine output [id number] mL in the last 24 hours. He is currently on BiPAP. Very drowsy and lethargic today. Plan for hemodialysis given worsening kidney function. Objective Vitals and Measurements T: 36.5 C (Axillary) TMIN: 36.5 C (Axillary) TMAX: 37.2 C (Axillary) HR: 64(Monitored) RR: 22 BP: 147/67 SpO2: 93% Intake and Output 7AM Yesterday to 7AM Today Intake and Output (Last 24 hours) Intake Oral Intake 240.00 Output Urine Voided 900.00 Total Summary Total Intake 240.00 Total Output 900.00 Fluid Balance -660.00 Physical Exam GENERAL: Pt is comfortable in bed. On BiPAP PSYCH: Drowsy and lethargic HEENT: Sclera clear, trachea midline NEURO: No focal neurologic deficits ENDO: Thyroid is non-palpable NECK: JVD diffuse crackles CVS: S1 & S2 audible, Regular Rate and Rhythm, No Murmurs LUNG: Adequate air entry. GI: + BS, Abdomen is Soft EXTREMITIES: Significant lower extremity pitting edema SKIN: Warm & Dry Weight Current Weight Dosing Weight: 170.7 kg (08/08/22) Current Weight: 171.9 kg (08/09/22) Dosing Weight: 170.8 kg (08/06/22) Medications Medications (5) Active Scheduled: (5) aspirin 325 mg tablet 325 mg 1 tab(s), Oral, qDay carvedilol 25 mg tablet 25 mg 1 tab(s), Oral, BID heparin 5,000 units/mL (1 mL) vial 5,000 unit(s) 1 mL, Subcutaneous, q8h hydralazine 50 mg Tablet 100 mg 2 tab(s), Oral, TID isosorbide mononitrate 30 mg ER tablet 30 mg 1 tab(s), Oral, qDayAC Continuous: (0) PRN: (0) Lab Results 08/10 05:26 Glucose Level: 104 Sodium Level: 138 Potassium Level: 5.0 BUN: 86.0 H Creatinine Lvl (s): 3.43 H 08/09 03:09 Glucose Level: 158 H Sodium Level: 135 L Potassium Level: 5.1 H BUN: 77.0 H Creatinine Lvl (s): 3.03 H EKG No qualifying data available. Assessment/Plan Acute hypoxic hypercapnic respiratory failure Acute on chronic systolic and diastolic heart failure LVEF decreased to 25 to 30% Probable PHTN (dilated pulmonary trunk, contrast reflux in IVC) Nonischemic cardiomyopathy Mild angiographic CAD 01/2021 History of pulmonary embolism Diabetes, hypertension, ANDRADE, ascending aortic aneurysm 5.[address] not interested in follow-up or surgery, obesity Scattered calcified lung, 1.2 cm granulomas irregular nodule consolidation BRYANNA likely secondary to contrast exposure Hyperkalemia CVC: AQ Mr. Muniz is a 67-year-old man with NICM, follows with Dr. Jin in clinic, he presents ER withacute decompensated heart failure of few days duration of unclear trigger. He is compliant with hismedications including bumetanide 2 mg p.o. 3 times daily, minimizes salt intake, no recent chest pain, palpitation, however endorses some lightheadedness. No evidence of A-fib in our available records. Surface echo 1. Left ventricle: The cavity size is increased. Wall thickness is normal. Systolic function is severely reduced. The estimated ejection fraction is 25-30%. There is severe diffuse hypokinesis. Grade II diastolic dysfunction. 2. Aortic valve: Transvalvular velocity is increased. There is moderate stenosis. The LVOT to aortic valve VTI ratio is 0.34. 3. Mitral valve: The annulus is mildly calcified. The leaflets are moderately thickened. Thickening. 4. Right ventricle: The cavity size is increased. 5. Right atrium: The atrium is dilated. Plan: -Worsening kidney function with suboptimal urine output. Spoke with nephrology who plans to put temporary dialysis catheter and plan for dialysis today. Oxygen requirement is increasing as well and patient is slightly lethargic today. Volume management with hemodialysis. -Increase hydralazine to 100mg 3 times daily for afterload reduction and better blood pressure control. -Continue Imdur -Hold off on RAAS inhibitor given BRYANNA and hyperkalemia. Continue monitor BMP. Need further GDMT optimization once hemodynamics and kidney function permits. -Pulmonary on board and believe respiratory status is secondary to volume overload. Continue to monitor Rec appreciated. -Counseled patient extensively about genetic and radiologic testing of his ascending aortic aneurysm (he is brother of dissection age 27) he continues to adamantly decline testing and treatment for it, understanding that he has risk of sudden , his direct family members are aware of the condition and the familial component. -Continue to monitor hemodynamics CODE STATUS: DNR/DNI, except electrical shock and inotropes/vasoactive medicine. Digitally Signed by ROLAND FOUNTAIN MD on 08/10/2022 03:07 PM [facility] [id number] Cardiology Progress note Date of Service 08/11/22 Subjective Patient seen and examined at bedside. No acute overnight events. Had hemodialysis yesterday with 1.5 L removed. Remains on high flow nasal cannula 12 L. Objective Vitals and Measurements T: 37.1 C (Oral) TMIN: 36.4 C (Skin) TMAX: 37.1 C (Oral) HR: 64(Monitored) RR: 20 BP: 122/70 SpO2: 93% Intake and Output 7AM Yesterday to 7AM Today Intake and Output (Last 24 hours) Intake Oral Intake 240.00 Output Urine Voided 640.00 Hemodialysis 1500.00 Total Summary Total Intake 240.00 Total Output 2140.00 Fluid Balance -1900.00 Physical Exam GENERAL: Pt is comfortable in bed. On BiPAP PSYCH: Drowsy and lethargic HEENT: Sclera clear, trachea midline NEURO: No focal neurologic deficits ENDO: Thyroid is non-palpable NECK: JVD diffuse crackles CVS: S1 & S2 audible, Regular Rate and Rhythm, No Murmurs LUNG: Adequate air entry. GI: + BS, Abdomen is Soft EXTREMITIES: Significant lower extremity pitting edema SKIN: Warm & Dry Weight Current Weight Dosing Weight: 170.7 kg (08/08/22) Current Weight: 171.9 kg (08/09/22) Dosing Weight: 170.8 kg (08/06/22) Medications Medications (5) Active Scheduled: (5) aspirin 325 mg tablet 325 mg 1 tab(s), Oral, qDay carvedilol 25 mg tablet 25 mg 1 tab(s), Oral, BID heparin 5,000 units/mL (1 mL) vial 5,000 unit(s) 1 mL, Subcutaneous, q8h hydralazine 50 mg Tablet 100 mg 2 tab(s), Oral, TID isosorbide mononitrate 30 mg ER tablet 30 mg 1 tab(s), Oral, qDayAC Continuous: (0) PRN: (0) Lab Results 08/11 05:43 WBC: 5.1 Hgb: 14.3 Hct: 45.5 Platelet: 202 Neutrophil %: 86.2 H Glucose Level: 111 Sodium Level: 138 Potassium Level: 5.1 H BUN: 89.0 H Creatinine Lvl (s): 2.80 H 08/10 05:26 Glucose Level: 104 Sodium Level: 138 Potassium Level: 5.0 BUN: 86.0 H Creatinine Lvl (s): 3.43 H EKG No qualifying data available. Assessment/Plan Acute hypoxic hypercapnic respiratory failure Acute on chronic systolic and diastolic heart failure LVEF decreased to 25 to 30% Probable PHTN (dilated pulmonary trunk, contrast reflux in IVC) Nonischemic cardiomyopathy Mild angiographic CAD 01/2021 History of pulmonary embolism Diabetes, hypertension, ANDRADE, ascending aortic aneurysm 5.[address] not interested in follow-up or surgery, obesity Scattered calcified lung, 1.2 cm granulomas irregular nodule consolidation BRYANNA likely secondary to contrast exposure Hyperkalemia CVC: AQ Mr. Muniz is a 67-year-old man with NICM, follows with Dr. Jin in clinic, he presents ER withacute decompensated heart failure of few days duration of unclear trigger. He is compliant with hismedications including bumetanide 2 mg p.o. 3 times daily, minimizes salt intake, no recent chest pain, palpitation, however endorses some lightheadedness. No evidence of A-fib in our available records. Surface echo 1. Left ventricle: The cavity size is increased. Wall thickness is normal. Systolic function is severely reduced. The estimated ejection fraction is 25-30%. There is severe diffuse hypokinesis. Grade II diastolic dysfunction. 2. Aortic valve: Transvalvular velocity is increased. There is moderate stenosis. The LVOT to aortic valve VTI ratio is 0.34. 3. Mitral valve: The annulus is mildly calcified. The leaflets are moderately thickened. Thickening. 4. Right ventricle: The cavity size is increased. 5. Right atrium: The atrium is dilated. Plan: I had hemodialysis yesterday with 1.5 L removed. Plan for repeat hemodialysis today for fluid management. Still requiring significant oxygen requirement with high flow nasal cannula. Creatinine slightly improved since yesterday. Making 500 to 600 cc of urine. Nephrology on board. Volume management with hemodialysis. -Continue hydralazine to 100mg 3 times daily and Imdur for afterload reduction -Hold off on RAAS inhibitor given BRYANNA and hyperkalemia. Continue monitor BMP. Need further GDMT optimization once hemodynamics and kidney function permits. -Pulmonary on board for respiratory failure. Continue to monitor, Rec appreciated. Chest x-ray showing mild bibasilar atelectasis present consolidation. Incentive spirometry. -Counseled patient extensively about genetic and radiologic testing of his ascending aortic aneurysm (he is brother of dissection age 27) he continues to adamantly decline testing and treatment for it, understanding that he has risk of sudden , his direct family members are aware of the condition and the familial component. -PT OT for discharge planning -Continue to monitor hemodynamics CODE STATUS: DNR/DNI, except electrical shock and inotropes/vasoactive medicine. Digitally Signed by ROLAND FOUNTAIN MD on 08/11/2022 01:43 PM Digitally Signed by ROLAND FOUNTAIN MD on 08/11/2022 01:45 PM [facility] [id number] Cardiology Progress note Date of Service 08/14/2022 Subjective Patient seen and examined at bedside. No acute overnight events. Urine output of 3.2 L negative balance of 2.4 L. Oxygen requirement has decreased to 8 L high flow nasal cannula. Objective Vitals and Measurements T: 36.5 C (Oral) TMIN: 36.5 C (Oral) TMAX: 36.8 C (Oral) HR: 66(Monitored) RR: 16 BP: 98/50 SpO2: 91% WT: 159.6 kg Intake and Output 7AM Yesterday to 7AM Today Intake and Output (Last 24 hours) Intake Oral Intake 600.00 Output Urine Voided 2000.00 Hemodialysis 2000.00 Total Summary Total Intake 600.00 Total Output 4000.00 Fluid Balance -3400.00 Physical Exam GENERAL: Pt is comfortable in bed. On high flow nasal cannula PSYCH: Alert and oriented HEENT: Sclera clear, trachea midline NEURO: No focal neurologic deficits ENDO: Thyroid is non-palpable NECK: JVD improved CVS: S1 & S2 audible, Regular Rate and Rhythm, No Murmurs LUNG: Adequate air entry. GI: + BS, Abdomen is Soft EXTREMITIES: Significant lower extremity pitting edema SKIN: Warm & Dry Weight Current Weight Dosing Weight: 0 kg (08/11/22) Current Weight: 159.6 kg (08/14/22) Dosing Weight: 170.7 kg (08/08/22) Current Weight: 163.5 kg (08/13/22) Medications Medications (6) Active Scheduled: (5) aspirin 81 mg Chewable 81 mg 1 tab(s), Oral, qDayM carvedilol 25 mg tablet 25 mg 1 tab(s), Oral, BID heparin 5,000 units/mL (1 mL) vial 5,000 unit(s) 1 mL, Subcutaneous, q8h insulin lispro 100 units/mL Soln (3 mL) Give 0-10 units/dose, Subcutaneous, TIDAC isosorbide mononitrate 30 mg ER tablet 30 mg 1 tab(s), Oral, qDayAC Continuous: (1) bumetanide 10 mg [0.5 mg/hr] + Sodium Chloride 0.9% 60 mL 60 mL, Intravenous, 5 mL/hr PRN: (0) Lab Results 08/14 03:40 WBC: 3.7 L Hgb: 14.1 Hct: 44.7 Platelet: 149 L Neutrophil %: 71.0 Glucose Level: 108 Sodium Level: 139 Potassium Level: 3.9 BUN: 60.0 H Creatinine Lvl (s): 1.75 H 08/13 09:15 WBC: 4.5 Hgb: 14.4 Hct: 46.0 Platelet: 174 Neutrophil %: 82.9 H 08/13 04:07 Glucose Level: 123 H Sodium Level: 139 Potassium Level: 4.1 BUN: 72.0 H Creatinine Lvl (s): 1.78 H EKG No qualifying data available. Assessment/Plan Acute hypoxic hypercapnic respiratory failure Acute on chronic systolic and diastolic heart failure LVEF decreased to 25 to 30% Probable PHTN (dilated pulmonary trunk, contrast reflux in IVC) Nonischemic cardiomyopathy Mild angiographic CAD 01/2021 History of pulmonary embolism Diabetes, hypertension, ANDRADE, ascending aortic aneurysm 5.[address] not interested in follow-up or surgery, obesity Scattered calcified lung, 1.2 cm granulomas irregular nodule consolidation BRYANNA likely secondary to contrast exposure Hyperkalemia CVC: AQ Mr. Muniz is a 67-year-old man with NICM, follows with Dr. Jin in clinic, he presents ER withacute decompensated heart failure of few days duration of unclear trigger. He is compliant with hismedications including bumetanide 2 mg p.o. 3 times daily, minimizes salt intake, no recent chest pain, palpitation, however endorses some lightheadedness. No evidence of A-fib in our available records. Surface echo 1. Left ventricle: The cavity size is increased. Wall thickness is normal. Systolic function is severely reduced. The estimated ejection fraction is 25-30%. There is severe diffuse hypokinesis. Grade II diastolic dysfunction. 2. Aortic valve: Transvalvular velocity is increased. There is moderate stenosis. The LVOT to aortic valve VTI ratio is 0.34. 3. Mitral valve: The annulus is mildly calcified. The leaflets are moderately thickened. Thickening. 4. Right ventricle: The cavity size is increased. 5. Right atrium: The atrium is dilated. Plan: Making great urine output and kidney function is stable. Will change patient to a Bumex drip at 0.5mg an hour. Oxygen requirement is decreasing he is currently on 8 L from 12 L high flow nasal cannula. We will monitor kidney function closely. Patient's respiratory status is secondary to ANDRADE/OHS along with CHF, will continue BiPAP. Pulmonary is on board, no new recommendations. Chest x-ray showing bibasilar atelectasis, continue incentive spirometer every hour. Continue 1500 cc fluid restriction. Nephrology is on board for BRYANNA and CKD, no further hemodialysis planned. -Will hold hydralazine to 100mg 3 times daily given soft BP and continue Imdur for afterload reduction -Hold off on RAAS inhibitor given kidney dysfunction and hyperkalemia during admission. Continue monitor BMP. Need further GDMT optimization once hemodynamics and kidney function permits. -Counseled patient extensively about genetic and radiologic testing of his ascending aortic aneurysm (he is brother of dissection age 27) he continues to adamantly decline testing and treatment for it, understanding that he has risk of sudden , his direct family members are aware of the condition and the familial component. -PT OT stated no further therapy needed, rec home independently. -Continue to monitor hemodynamics CODE STATUS: DNR/DNI, except electrical shock and inotropes/vasoactive medicine. Digitally Signed by ROLAND FOUNTAIN MD on 08/14/2022 01:00 PM [facility] [id number] Pulmonary Progress note Date of Service 08/14/22 Subjective Down to 6 L nasal cannula today, approximately 2.6 L negative over the past 24 hours, had HD yesterday, made 1.2L UOP Objective Vitals and Measurements T: 36.7 C (Oral) TMIN: 36.5 C (Skin) TMAX: 36.8 C (Oral) HR: 73(Monitored) RR: 16 BP: 106/56 SpO2: 95% WT: 159.6 kg Intake and Output 7AM Yesterday to 7AM Today Intake and Output (Last 24 hours) Intake Oral Intake 600.00 Output Urine Voided 2000.00 Hemodialysis 2000.00 Total Summary Total Intake 600.00 Total Output 4000.00 Fluid Balance -3400.00 Physical Exam General-no acute distress, alert HEENT-normocephalic, atraumatic, extraocular movements intact, dialysis line in right neck Pulmonary-relatively clear, no wheeze Cardiovascular-regular, no appreciable murmurs, gallops or rubs Abdomen-soft, morbidly obese, bowel sounds positive, nontender Extremities-bilateral lower extremity edema with chronic venous stasis changes noted, no cyanosis or clubbing Neurologic-grossly nonfocal Weight Current Weight Dosing Weight: 0 kg (08/11/22) Current Weight: 159.6 kg (08/14/22) Dosing Weight: 170.7 kg (08/08/22) Current Weight: 163.5 kg (08/13/22) Medications Medications (6) Active Scheduled: (6) aspirin 81 mg Chewable 81 mg 1 tab(s), Oral, qDayM bumetanide 0.25 mg/1 mL 4 mL VIAL 2 mg 8 mL, IV Push, TID carvedilol 25 mg tablet 25 mg 1 tab(s), Oral, BID heparin 5,000 units/mL (1 mL) vial 5,000 unit(s) 1 mL, Subcutaneous, q8h insulin lispro 100 units/mL Soln (3 mL) Give 0-10 units/dose, Subcutaneous, TIDAC isosorbide mononitrate 30 mg ER tablet 30 mg 1 tab(s), Oral, qDayAC Continuous: (0) PRN: (0) Lab Results 08/14 03:40 WBC: 3.7 L Hgb: 14.1 Hct: 44.7 Platelet: 149 L Neutrophil %: 71.0 Glucose Level: 108 Sodium Level: 139 Potassium Level: 3.9 BUN: 60.0 H Creatinine Lvl (s): 1.75 H 08/13 09:15 WBC: 4.5 Hgb: 14.4 Hct: 46.0 Platelet: 174 Neutrophil %: 82.9 H 08/13 04:07 Glucose Level: 123 H Sodium Level: 139 Potassium Level: 4.1 BUN: 72.0 H Creatinine Lvl (s): 1.78 H EKG No qualifying data available. Assessment/Plan 1. Acute on chronic hypercapnic respiratory failure and acute hypoxic respiratory failure 2. Heart failure exacerbation 3. ANDRADE/OHS on AVAPS at home with 5 L bleeding at night 4. BRYANNA on CKD Plan: Acute on chronic hypercapnia likely secondary to heart failure exacerbation. Patient currently not in any respiratory distress normal mentation and no asterixis on exam. Recommend to continue diuresis by cardiology and recheck ABG after adequate period of diuresis Continue home AVAPS unit at night with oxygen bled in Wean FiO2 to maintain saturation more than 90%, have asked his bedside nurse to keep him closer to the 88 to 92% range Abnormal opacities on CT scan likely due to volume overload and atelectasis. He does not have any infectious symptoms. He will need a repeat CT scan as outpatient in 2 to 3 months to follow-up for resolution -Fluid removal with dialysis as you are, UOP improving Time Spent 15 minutes Digitally Signed by HILTON OLVERA MD on 08/14/2022 11:53 AM [facility] [id number] Nephrology Progress note Date of Service 08-13-22 Chief Complaint no new issues Subjective seen in dialysis,breathing better,no chest pain/still has leg swelling Objective Vitals and Measurements T: 36.8 C (Oral) TMIN: 36.5 C (Skin) TMAX: 37 C (Oral) HR: 67(Monitored) RR: 18 BP: 112/54 SpO2: 91% WT: 130.6 kg Intake and Output 7AM Yesterday to 7AM Today Intake and Output (Last 24 hours) Intake Oral Intake 700.00 Output Urine Voided 3775.00 Hemodialysis 2000.00 Stool Count 1.00 Total Summary Total Intake 700.00 Total Output 5775.00 Fluid Balance -5075.00 Physical Exam obese,lungs clear,s1s2 regular,no rub or murmur noted,abdomen v obese,soft non tender,leg edema moderate to severe Weight Current Weight Dosing Weight: 0 kg (08/11/22) Current Weight: 130.6 kg (08/13/22) Dosing Weight: 170.7 kg (08/08/22) Current Weight: 179 kg (08/12/22) Medications Medications (7) Active Scheduled: (7) aspirin 81 mg Chewable 81 mg 1 tab(s), Oral, qDayM bumetanide 0.25 mg/1 mL 4 mL VIAL 2 mg 8 mL, IV Push, TID carvedilol 25 mg tablet 25 mg 1 tab(s), Oral, BID heparin 5,000 units/mL (1 mL) vial 5,000 unit(s) 1 mL, Subcutaneous, q8h hydralazine 50 mg Tablet 100 mg 2 tab(s), Oral, TID insulin lispro 100 units/mL Soln (3 mL) Give 0-10 units/dose, Subcutaneous, TIDAC isosorbide mononitrate 30 mg ER tablet 30 mg 1 tab(s), Oral, qDayAC Continuous: (0) PRN: (0) Lab Results 08/13 09:15 WBC: 4.5 Hgb: 14.4 Hct: 46.0 Platelet: 174 Neutrophil %: 82.9 H 08/13 04:07 Glucose Level: 123 H Sodium Level: 139 Potassium Level: 4.1 BUN: 72.0 H Creatinine Lvl (s): 1.78 H 08/12 05:48 Glucose Level: 100 Sodium Level: 140 Potassium Level: 4.7 BUN: 91.0 H Creatinine Lvl (s): 2.35 H EKG No qualifying data available. Assessment/Plan SOB - Shortness of breath better renal function better good urine output volume overload had isolated ultrafiltration continue with diuretics and dialysis/ultrfiltration Digitally Signed by MARY DODD MD on 08/13/2022 04:52 PM [facility] [id number] Cardiology Progress note Date of Service 08/13/2022 Subjective Patient seen and examined at bedside. No acute overnight events. Patient going for hemodialysis today. Remains on 12 L high flow nasal cannula. Patient made great urine output with 5.4 L negative balance of 4.3 L in the last 24 hours. Objective Vitals and Measurements T: 36.8 C (Oral) TMIN: 36.5 C (Skin) TMAX: 37.0 C (Oral) HR: 67(Monitored) RR: 18 BP: 104/54 SpO2: 91% WT: 130.6 kg Intake and Output 7AM Yesterday to 7AM Today Intake and Output (Last 24 hours) Intake Oral Intake 1040.00 Output Urine Voided 4875.00 Hemodialysis 2000.00 Stool Count 1.00 Total Summary Total Intake 1040.00 Total Output 6875.00 Fluid Balance -5835.00 Physical Exam Physical Exam GENERAL: Pt is comfortable in bed. On high flow nasal cannula PSYCH: Drowsy and lethargic HEENT: Sclera clear, trachea midline NEURO: No focal neurologic deficits ENDO: Thyroid is non-palpable NECK: JVD improved CVS: S1 & S2 audible, Regular Rate and Rhythm, No Murmurs LUNG: Adequate air entry. GI: + BS, Abdomen is Soft EXTREMITIES: Significant lower extremity pitting edema SKIN: Warm & Dry Weight Current Weight Dosing Weight: 0 kg (08/11/22) Current Weight: 130.6 kg (08/13/22) Dosing Weight: 170.7 kg (08/08/22) Current Weight: 179 kg (08/12/22) Medications Medications (6) Active Scheduled: (6) aspirin 81 mg Chewable 81 mg 1 tab(s), Oral, qDayM bumetanide 0.25 mg/1 mL 4 mL VIAL 2 mg 8 mL, IV Push, TID carvedilol 25 mg tablet 25 mg 1 tab(s), Oral, BID heparin 5,000 units/mL (1 mL) vial 5,000 unit(s) 1 mL, Subcutaneous, q8h hydralazine 50 mg Tablet 100 mg 2 tab(s), Oral, TID isosorbide mononitrate 30 mg ER tablet 30 mg 1 tab(s), Oral, qDayAC Continuous: (0) PRN: (0) Lab Results 08/13 09:15 WBC: 4.5 Hgb: 14.4 Hct: 46.0 Platelet: 174 Neutrophil %: 82.9 H 08/13 04:07 Glucose Level: 123 H Sodium Level: 139 Potassium Level: 4.1 BUN: 72.0 H Creatinine Lvl (s): 1.78 H 08/12 05:48 Glucose Level: 100 Sodium Level: 140 Potassium Level: 4.7 BUN: 91.0 H Creatinine Lvl (s): 2.35 H EKG No qualifying data available. Assessment/Plan Acute hypoxic hypercapnic respiratory failure Acute on chronic systolic and diastolic heart failure LVEF decreased to 25 to 30% Probable PHTN (dilated pulmonary trunk, contrast reflux in IVC) Nonischemic cardiomyopathy Mild angiographic CAD 01/2021 History of pulmonary embolism Diabetes, hypertension, ANDRADE, ascending aortic aneurysm 5.[address] not interested in follow-up or surgery, obesity Scattered calcified lung, 1.2 cm granulomas irregular nodule consolidation BRYANNA likely secondary to contrast exposure Hyperkalemia CVC: AQ Mr. Muniz is a 67-year-old man with NICM, follows with Dr. Jin in clinic, he presents ER withacute decompensated heart failure of few days duration of unclear trigger. He is compliant with hismedications including bumetanide 2 mg p.o. 3 times daily, minimizes salt intake, no recent chest pain, palpitation, however endorses some lightheadedness. No evidence of A-fib in our available records. Surface echo 1. Left ventricle: The cavity size is increased. Wall thickness is normal. Systolic function is severely reduced. The estimated ejection fraction is 25-30%. There is severe diffuse hypokinesis. Grade II diastolic dysfunction. 2. Aortic valve: Transvalvular velocity is increased. There is moderate stenosis. The LVOT to aortic valve VTI ratio is 0.34. 3. Mitral valve: The annulus is mildly calcified. The leaflets are moderately thickened. Thickening. 4. Right ventricle: The cavity size is increased. 5. Right atrium: The atrium is dilated. Plan: Patient went for hemodialysis today with 2 L removed. Kidney function seems to be improving with a creatinine of 1.78 today. We will continue Bumex 2 mg 3 times daily. Remains on high flow nasal cannula at 12 L, believe his respiratory status is secondary to ANDRADE/OHS along with CHF. ABG yesterday showing acute on chronic hypercapnic hypoxic respiratory failure, will continue BiPAP. Pulmonary is onboard, no new recommendations. Chest x-ray showing bibasilar atelectasis, continue incentive spirometer every hour. Continue 1500 cc fluid restriction. -Will hold hydralazine to 100mg 3 times daily given soft BP and continue Imdur for afterload reduction -Hold off on RAAS inhibitor given kidney dysfunction and hyperkalemia during admission. Continue monitor BMP. Need further GDMT optimization once hemodynamics and kidney function permits. -Counseled patient extensively about genetic and radiologic testing of his ascending aortic aneurysm (he is brother of dissection age 27) he continues to adamantly decline testing and treatment for it, understanding that he has risk of sudden , his direct family members are aware of the condition and the familial component. -PT OT stated no further therapy needed, rec home independently. -Continue to monitor hemodynamics CODE STATUS: DNR/DNI, except electrical shock and inotropes/vasoactive medicine. Digitally Signed by ROLAND FOUNTAIN MD on 08/13/2022 04:48 PM Digitally Signed by ROLAND FOUNTAIN MD on 08/13/2022 05:01 PM [id number] Pulmonary Progress note Date of Service 08/13/22 Subjective Approximately 4.3 L net negative over the past 24 hours, remains on 12 L nasal cannula Objective Vitals and Measurements T: 37 C (Oral) TMIN: 36.6 C (Oral) TMAX: 37.0 C (Oral) HR: 70(Monitored) RR: 18 BP: 148/51 SpO2: 93% WT: 130.6 kg Intake and Output 7AM Yesterday to 7AM Today Intake and Output (Last 24 hours) Intake Oral Intake 1040.00 Output Urine Voided 5425.00 Stool Count 1.00 Total Summary Total Intake 1040.00 Total Output 5425.00 Fluid Balance -4385.00 Physical Exam General-no acute distress, alert HEENT-normocephalic, atraumatic, extraocular movements intact, dialysis line in right neck Pulmonary-relatively clear, no wheeze Cardiovascular-regular, no appreciable murmurs, gallops or rubs Abdomen-soft, morbidly obese, bowel sounds positive, nontender Extremities-bilateral lower extremity edema with chronic venous stasis changes noted, no cyanosis or clubbing Neurologic-grossly nonfocal Weight Current Weight Dosing Weight: 0 kg (08/11/22) Current Weight: 130.6 kg (08/13/22) Dosing Weight: 170.7 kg (08/08/22) Current Weight: 179 kg (08/12/22) Medications Medications (6) Active Scheduled: (6) aspirin 81 mg Chewable 81 mg 1 tab(s), Oral, qDayM bumetanide 0.25 mg/1 mL 4 mL VIAL 2 mg 8 mL, IV Push, TID carvedilol 25 mg tablet 25 mg 1 tab(s), Oral, BID heparin 5,000 units/mL (1 mL) vial 5,000 unit(s) 1 mL, Subcutaneous, q8h hydralazine 50 mg Tablet 100 mg 2 tab(s), Oral, TID isosorbide mononitrate 30 mg ER tablet 30 mg 1 tab(s), Oral, qDayAC Continuous: (0) PRN: (0) Lab Results 08/13 04:07 Glucose Level: 123 H Sodium Level: 139 Potassium Level: 4.1 BUN: 72.0 H Creatinine Lvl (s): 1.78 H 08/12 05:48 Glucose Level: 100 Sodium Level: 140 Potassium Level: 4.7 BUN: 91.0 H Creatinine Lvl (s): 2.35 H EKG No qualifying data available. Assessment/Plan 1. Acute on chronic hypercapnic respiratory failure and acute hypoxic respiratory failure 2. Heart failure exacerbation 3. ANDRADE/OHS on AVAPS at home with 5 L bleeding at night 4. BRYANNA on CKD Plan: Acute on chronic hypercapnia likely secondary to heart failure exacerbation. Patient currently not in any respiratory distress normal mentation and no asterixis on exam. Recommend to continue diuresis by cardiology and recheck ABG after adequate period of diuresis Continue home AVAPS unit at night with oxygen bled in Wean FiO2 to maintain saturation more than 90%, have asked his bedside nurse to keep him closer to the 88 to 92% range Abnormal opacities on CT scan likely due to volume overload and atelectasis. He does not have any infectious symptoms. He will need a repeat CT scan as outpatient in 2 to 3 months to follow-up for resolution -Fluid removal with dialysis as you are Time Spent 15 minutes Digitally Signed by HILTON OLVERA MD on 08/13/2022 08:46 AM [facility] [id number] Cardiology Progress note Date of Service 08/12/22 Subjective Patient seen and examined at bedside. No acute overnight events. Remains on 12 L nasal cannula. Denies any chest pain but has ongoing shortness of breath. Urine output of 1.7 L with hemodialysis removal of 1.2 L total 2.9 L negative balance of 1.9 L. Objective Vitals and Measurements T: 36.6 C (Oral) TMIN: 36.5 C (Oral) TMAX: 36.8 C (Skin) HR: 64(Monitored) RR: 20 BP: 122/56 SpO2: 94% WT: 179 kg Intake and Output 7AM Yesterday to 7AM Today Intake and Output (Last 24 hours) Intake Oral Intake 780.00 Output Urine Voided 1620.00 Hemodialysis 1233.00 Total Summary Total Intake 780.00 Total Output 2853.00 Fluid Balance -2072.00 Physical Exam GENERAL: Pt is comfortable in bed. On high flow nasal cannula PSYCH: Drowsy and lethargic HEENT: Sclera clear, trachea midline NEURO: No focal neurologic deficits ENDO: Thyroid is non-palpable NECK: JVD diffuse crackles CVS: S1 & S2 audible, Regular Rate and Rhythm, No Murmurs LUNG: Adequate air entry. GI: + BS, Abdomen is Soft EXTREMITIES: Significant lower extremity pitting edema SKIN: Warm & Dry Weight Current Weight Dosing Weight: 0 kg (08/11/22) Current Weight: 179 kg (08/12/22) Dosing Weight: 170.7 kg (08/08/22) Current Weight: 171.9 kg (08/09/22) Medications Medications (6) Active Scheduled: (6) aspirin 81 mg Chewable 81 mg 1 tab(s), Oral, qDayM bumetanide 0.25 mg/1 mL 4 mL VIAL 2 mg 8 mL, IV Push, TID carvedilol 25 mg tablet 25 mg 1 tab(s), Oral, BID heparin 5,000 units/mL (1 mL) vial 5,000 unit(s) 1 mL, Subcutaneous, q8h hydralazine 50 mg Tablet 100 mg 2 tab(s), Oral, TID isosorbide mononitrate 30 mg ER tablet 30 mg 1 tab(s), Oral, qDayAC Continuous: (0) PRN: (0) Lab Results 08/12 05:48 Glucose Level: 100 Sodium Level: 140 Potassium Level: 4.7 BUN: 91.0 H Creatinine Lvl (s): 2.35 H 08/11 05:43 WBC: 5.1 Hgb: 14.3 Hct: 45.5 Platelet: 202 Neutrophil %: 86.2 H Glucose Level: 111 Sodium Level: 138 Potassium Level: 5.1 H BUN: 89.0 H Creatinine Lvl (s): 2.80 H EKG No qualifying data available. Assessment/Plan Acute hypoxic hypercapnic respiratory failure Acute on chronic systolic and diastolic heart failure LVEF decreased to 25 to 30% Probable PHTN (dilated pulmonary trunk, contrast reflux in IVC) Nonischemic cardiomyopathy Mild angiographic CAD 01/2021 History of pulmonary embolism Diabetes, hypertension, ANDRADE, ascending aortic aneurysm 5.[address] not interested in follow-up or surgery, obesity Scattered calcified lung, 1.2 cm granulomas irregular nodule consolidation BRYANNA likely secondary to contrast exposure Hyperkalemia CVC: AQ Mr. Muniz is a 67-year-old man with NICM, follows with Dr. Jin in clinic, he presents ER withacute decompensated heart failure of few days duration of unclear trigger. He is compliant with hismedications including bumetanide 2 mg p.o. 3 times daily, minimizes salt intake, no recent chest pain, palpitation, however endorses some lightheadedness. No evidence of A-fib in our available records. Surface echo 1. Left ventricle: The cavity size is increased. Wall thickness is normal. Systolic function is severely reduced. The estimated ejection fraction is 25-30%. There is severe diffuse hypokinesis. Grade II diastolic dysfunction. 2. Aortic valve: Transvalvular velocity is increased. There is moderate stenosis. The LVOT to aortic valve VTI ratio is 0.34. 3. Mitral valve: The annulus is mildly calcified. The leaflets are moderately thickened. Thickening. 4. Right ventricle: The cavity size is increased. 5. Right atrium: The atrium is dilated. Plan: -Believe patient respiratory failure has both pulmonary and cardiac component to it. After speakingwith nephrology we will proceed with starting diuresis with Bumex 2 3 times daily and also give 1 dose of metolazone. Ultrasound abdomen is negative for any ascites. Believe his respiratory status issecondary to ANDRADE/OHS. ABG today showing acute on chronic hypercapnic hypoxic respiratory failure, will continue BiPAP. Pulmonary is on board, no new recommendations. Chest x-ray showing bibasilar atelectasis we will start patient on incentive spirometer every hour. We will also place patient on a 1500 cc fluid restriction. No plan for hemodialysis today. -Continue hydralazine to 100mg 3 times daily and Imdur for afterload reduction -Hold off on RAAS inhibitor given kidney dysfunction and hyperkalemia during admission. Continue monitor BMP. Need further GDMT optimization once hemodynamics and kidney function permits. -Counseled patient extensively about genetic and radiologic testing of his ascending aortic aneurysm (he is brother of dissection age 27) he continues to adamantly decline testing and treatment for it, understanding that he has risk of sudden , his direct family members are aware of the condition and the familial component. -PT OT stated no further therapy needed, rec home independently. -Continue to monitor hemodynamics CODE STATUS: DNR/DNI, except electrical shock and inotropes/vasoactive medicine. Digitally Signed by ROLAND FOUNTAIN MD on 08/12/2022 02:23 PM [facility] [id number] NoteORIGINAL PROCEDURE: TEMPORARY DIALYSIS CATHETER WITH ULTRASOUND AND FLUOROSCOPIC GUIDANCE: 08/10/2022 CAMPUS MONITOR: Rebekah Gil PA-C CLINICAL STATEMENT: FAITH Gabriel COMPARISON: None MATERIALS UTILIZED: 14 Fr x 20 cm SLX Hemo-Cath double lumen catheter Probe cover Micropuncture set 2-0 Ethibond suture ANESTHESIA: Local FLUOROSCOPY: 41 seconds AIR KERMA DOSE: 68 mGy SITE OF PUNCTURE: Right internal jugular vein The procedure, risks, and alternatives, were discussed with the patient and all questions were answered. Written informed consent obtained. Accompanying paperwork was verified for accuracy. Directed history and physical exam performed prior to the procedure. Medication reconciliation performed by nursing personnel. Procedure was performed using a cap, sterile gown, sterile gloves, a large sterile sheet, hand hygiene and 2% chlorhexidine for cutaneous antisepsis. The patient was positioned supine on the table and prepped and draped in usual sterile fashion. A critical pause was performed with assisting personnel just prior to the procedure with the patient's identity confirmed using 2 identifiers, confirming site and side. Preliminary ultrasound of the target vessel demonstrated a widely patent vein and an image was obtained. 2% lidocaine was administered at the puncture site for local anesthesia. A tiny skin incision was made. The vein was cannulated under direct sonographic guidance with a micropuncture set. A wire was advanced into the IVC. After serial dilatation, the catheter was advanced over the wire under fluoroscopy. The wire was removed. Fluoroscopy demonstrated the catheter tip to be near the cavoatrial junction. A final fluoroscopic image was obtained. All lumens were aspirated and flushed with saline. Sterile caps were attached to each lumen. The catheter was fixed to the skin with 2-0 Ethibond suture. IMPRESSION: 1. Successful placement of a temporary hemodialysis catheter Procedure performed by Rebekah Gil PA-C. I concur contents of this report. Interpreted by: Joanne Castro Preliminary Report By: Rebekah Gil PA-C Electronically signed By Joanne Castro Dictated Date: 08/12/2022 11:06:46 AM Prelim Date: 08/12/2022 11:08:47 AM Sign Date: 08/12/2022 7:05:53 PM Ordering Provider: [facility])08-12-2022 Note ORIGINAL PROCEDURE: TEMPORARY DIALYSIS CATHETER WITH ULTRASOUND AND FLUOROSCOPIC GUIDANCE: 08/10/2022 CAMPUS MONITOR: Rebekah Gil PA-C CLINICAL STATEMENT: [place] Harvey COMPARISON: None MATERIALS UTILIZED: 14 Fr x 20 cm SLX Hemo-Cath double lumen catheter Probe cover Micropuncture set 2-0 Ethibond suture ANESTHESIA: Local FLUOROSCOPY: 41 seconds AIR KERMA DOSE: 68 mGy SITE OF PUNCTURE: Right internal jugular vein The procedure, risks, and alternatives, were discussed with the patient and all questions were answered. Written informed consent obtained. Accompanying paperwork was verified for accuracy. Directed history and physical exam performed prior to the procedure. Medication reconciliation performed by nursing personnel. Procedure was performed using a cap, sterile gown, sterile gloves, a large sterile sheet, hand hygiene and 2% chlorhexidine for cutaneous antisepsis. The patient was positioned supine on the table and prepped and draped in usual sterile fashion. A critical pause was performed with assisting personnel just prior to the procedure with the patient's identity confirmed using 2 identifiers, confirming site and side. Preliminary ultrasound of the target vessel demonstrated a widely patent vein and an image was obtained. 2% lidocaine was administered at the puncture site for local anesthesia. A tiny skin incision was made. The vein was cannulated under direct sonographic guidance with a micropuncture set. A wire was advanced into the IVC. After serial dilatation, the catheter was advanced over the wire under fluoroscopy. The wire was removed. Fluoroscopy demonstrated the catheter tip to be near the cavoatrial junction. A final fluoroscopic image was obtained. All lumens were aspirated and flushed with saline. Sterile caps were attached to each lumen. The catheter was fixed to the skin with 2-0 Ethibond suture. IMPRESSION: 1. Successful placement of a temporary hemodialysis catheter Procedure performed by Rebekah Gil PA-C. I concur contents of this report. Interpreted by: Joanne Castro Preliminary Report By: Rebekah Gil PA-C Electronically signed By Joanne Castro Dictated Date: 08/12/2022 11:06:46 AM Prelim Date: 08/12/2022 11:08:47 AM Sign Date: 08/12/2022 7:05:53 PM Ordering Provider: [facility]02-24-2023 Cardiology Progress note Date of Service 08/12/22 Subjective Patient seen and examined at bedside. No acute overnight events. Remains on 12 L nasal cannula. Denies any chest pain but has ongoing shortness of breath. Urine output of 1.7 L with hemodialysis removal of 1.2 L total 2.9 L negative balance of 1.9 L. Objective Vitals and Measurements T: 36.6 C (Oral) TMIN: 36.5 C (Oral) TMAX: 36.8 C (Skin) HR: 64(Monitored) RR: 20 BP: 122/56 SpO2: 94% WT: 179 kg Intake and Output 7AM Yesterday to 7AM Today Intake and Output (Last 24 hours) Intake Oral Intake 780.00 Output Urine Voided 1620.00 Hemodialysis 1233.00 Total Summary Total Intake 780.00 Total Output 2853.00 Fluid Balance -2072.00 Physical Exam GENERAL: Pt is comfortable in bed. On high flow nasal cannula PSYCH: Drowsy and lethargic HEENT: Sclera clear, trachea midline NEURO: No focal neurologic deficits ENDO: Thyroid is non-palpable NECK: JVD diffuse crackles CVS: S1 & S2 audible, Regular Rate and Rhythm, No Murmurs LUNG: Adequate air entry. GI: + BS, Abdomen is Soft EXTREMITIES: Significant lower extremity pitting edema SKIN: Warm & Dry Weight Current Weight Dosing Weight: 0 kg (08/11/22) Current Weight: 179 kg (08/12/22) Dosing Weight: 170.7 kg (08/08/22) Current Weight: 171.9 kg (08/09/22) Medications Medications (6) Active Scheduled: (6) aspirin 81 mg Chewable 81 mg 1 tab(s), Oral, qDayM bumetanide 0.25 mg/1 mL 4 mL VIAL 2 mg 8 mL, IV Push, TID carvedilol 25 mg tablet 25 mg 1 tab(s), Oral, BID heparin 5,000 units/mL (1 mL) vial 5,000 unit(s) 1 mL, Subcutaneous, q8h hydralazine 50 mg Tablet 100 mg 2 tab(s), Oral, TID isosorbide mononitrate 30 mg ER tablet 30 mg 1 tab(s), Oral, qDayAC Continuous: (0) PRN: (0) Lab Results 08/12 05:48 Glucose Level: 100 Sodium Level: 140 Potassium Level: 4.7 BUN: 91.0 H Creatinine Lvl (s): 2.35 H 08/11 05:43 WBC: 5.1 Hgb: 14.3 Hct: 45.5 Platelet: 202 Neutrophil %: 86.2 H Glucose Level: 111 Sodium Level: 138 Potassium Level: 5.1 H BUN: 89.0 H Creatinine Lvl (s): 2.80 H EKG No qualifying data available. Assessment/Plan Acute hypoxic hypercapnic respiratory failure Acute on chronic systolic and diastolic heart failure LVEF decreased to 25 to 30% Probable PHTN (dilated pulmonary trunk, contrast reflux in IVC) Nonischemic cardiomyopathy Mild angiographic CAD 01/2021 History of pulmonary embolism Diabetes, hypertension, ANDRADE, ascending aortic aneurysm 5.[address] not interested in follow-up or surgery, obesity Scattered calcified lung, 1.2 cm granulomas irregular nodule consolidation BRYANNA likely secondary to contrast exposure Hyperkalemia CVC: AQ Mr. Muniz is a 67-year-old man with NICM, follows with Dr. Jin in clinic, he presents ER withacute decompensated heart failure of few days duration of unclear trigger. He is compliant with hismedications including bumetanide 2 mg p.o. 3 times daily, minimizes salt intake, no recent chest pain, palpitation, however endorses some lightheadedness. No evidence of A-fib in our available records. Surface echo 1. Left ventricle: The cavity size is increased. Wall thickness is normal. Systolic function is severely reduced. The estimated ejection fraction is 25-30%. There is severe diffuse hypokinesis. Grade II diastolic dysfunction. 2. Aortic valve: Transvalvular velocity is increased. There is moderate stenosis. The LVOT to aortic valve VTI ratio is 0.34. 3. Mitral valve: The annulus is mildly calcified. The leaflets are moderately thickened. Thickening. 4. Right ventricle: The cavity size is increased. 5. Right atrium: The atrium is dilated. Plan: -Believe patient respiratory failure has both pulmonary and cardiac component to it. After speaking with nephrology we will proceed with starting diuresis with Bumex 2 3 times daily and also give 1 dose of metolazone. Ultrasound abdomen is negative for any ascites. Believe his respiratory status is secondary to ANDRADE/OHS. ABG today showing acute on chronic hypercapnic hypoxic respiratory failure, will continue BiPAP. Pulmonary is on board, no new recommendations. Chest x-ray showing bibasilar atelectasis we will start patient on incentive spirometer every hour. We will also place patient on a 1500 cc fluid restriction. No plan for hemodialysis today. -Continue hydralazine to 100mg 3 times daily and Imdur for afterload reduction -Hold off on RAAS inhibitor given kidney dysfunction and hyperkalemia during admission. Continue monitor BMP. Need further GDMT optimization once hemodynamics and kidney function permits. -Counseled patient extensively about genetic and radiologic testing of his ascending aortic aneurysm (he is brother of dissection age 27) he continues to adamantly decline testing and treatment for it, understanding that he has risk of sudden , his direct family members are aware of the condition and the familial component. -PT OT stated no further therapy needed, rec home independently. -Continue to monitor hemodynamics CODE STATUS: DNR/DNI, except electrical shock and inotropes/vasoactive medicine. Digitally Signed by ROLAND FOUNTAIN MD on 08/12/2022 02:23 PM [facility] [id number] Nephrology Progress note Date of Service 08/12/2022 Chief Complaint dyspnea with exertion Subjective Patient is sitting up in a chair in no acute distress. He is on 12L O2 humidified. 1.5 L off in IUF tx yesterday. Voided 1620cc in the last 24 hours. Plan for dialysis tomorrow. Discussed with patient and . Objective Vitals and Measurements T: 36.6 C (Oral) TMIN: 36.5 C (Oral) TMAX: 36.8 C (Skin) HR: 64(Monitored) RR: 20 BP: 122/56 SpO2: 94% WT: 179 kg Intake and Output 7AM Yesterday to 7AM Today Intake and Output (Last 24 hours) Intake Oral Intake 780.00 Output Urine Voided 1620.00 Hemodialysis 1233.00 Total Summary Total Intake 780.00 Total Output 2853.00 Fluid Balance -3.00 Physical Exam HEENT: PERRLA, BiPAP mask present Respiratory: Bilateral air entry is present, decreased at bases Cardiovascular: S1-S2 present, no rub Abdomen: Morbidly obese, soft, NT, BS present Extremities: Bilateral 2+-3+ pedal edema present, PP present Weight Current Weight Dosing Weight: 0 kg (08/11/22) Current Weight: 179 kg (08/12/22) Dosing Weight: 170.7 kg (08/08/22) Current Weight: 171.9 kg (08/09/22) Medications Medications (6) Active Scheduled: (6) aspirin 81 mg Chewable 81 mg 1 tab(s), Oral, qDayM bumetanide 0.25 mg/1 mL 4 mL VIAL 2 mg 8 mL, IV Push, TID carvedilol 25 mg tablet 25 mg 1 tab(s), Oral, BID heparin 5,000 units/mL (1 mL) vial 5,000 unit(s) 1 mL, Subcutaneous, q8h hydralazine 50 mg Tablet 100 mg 2 tab(s), Oral, TID isosorbide mononitrate 30 mg ER tablet 30 mg 1 tab(s), Oral, qDayAC Continuous: (0) PRN: (0) Lab Results 08/12 05:48 Glucose Level: 100 Sodium Level: 140 Potassium Level: 4.7 BUN: 91.0 H Creatinine Lvl (s): 2.35 H 08/11 05:43 WBC: 5.1 Hgb: 14.3 Hct: 45.5 Platelet: 202 Neutrophil %: 86.2 H Glucose Level: 111 Sodium Level: 138 Potassium Level: 5.1 H BUN: 89.0 H Creatinine Lvl (s): 2.80 H EKG No qualifying data available. Assessment/Plan Non-oliguric BRYANNA on stage III CKD: BRYANNA due to contrast and cardiorenal syndrome. slight improvementof kidney function GFR 28. UO excellent. On Bumex IV. Hyperkalemia: Resolved Acute on chronic CHF exacerbation with reduced EF:1.5 L off with dialysis yesterday Metabolic alkalosis: due to diuretics Acute on chronic respiratory failure: 12 L NC humidified. Hypertension: BP acceptable Diabetes Morbid obesity Pulmonary hypertension Plan: No dialysis today, discussed with patient. Labs in AM. Monitor renal function and urine output for renal recovery. Will follow. Hepatitis panel and BMP in AM. Digitally Signed by SOFI LAW on 08/12/2022 02:03 PM Digitally Signed by MARY DODD MD [facility] [id number] Note ORIGINAL HISTORY: Ascites COMPARISON: No FINDINGS: No ascites is seen. IMPRESSION: Negative. Interpreted by: Shamika Gonsales MD Preliminary Report By: Shamika Gonsales MD Electronically signed By Shamika Gonsales MD Dictated Date: 08/12/2022 1:59:23 PM Prelim Date: 08/12/2022 1:59:48 PM Sign Date: 08/12/2022 1:59:48 PM Ordering Provider: [facility]02-24-2023 Note ORIGINAL HISTORY: Ascites COMPARISON: No FINDINGS: No ascites is seen. IMPRESSION: Negative. Interpreted by: Shamika Gonsales MD Preliminary Report By: Shamika Gonsales MD Electronically signed By Shamika Gonsales MD Dictated Date: 08/12/2022 1:59:23 PM Prelim Date: 08/12/2022 1:59:48 PM Sign Date: 08/12/2022 1:59:48 PM Ordering Provider: [facility]02-24-2023 Note IR Procedure Record Summary Primary Physician: REBEKAH GIL PA-C Finalized Date/Time: 08/12/22 10:13:36 Pt. Name: SHEREE MUNIZ/Sex: 1955 Male Med Rec #: [id number] Physician: WILY BENITEZ MD Financial #: [id number] Pt. Type: I Room/Bed: [facility]A Admit/Disch: 08/06/22 09:19:52 - Institution: Allergies identified in patient's electronic medical record at time of printing on 08/12/22 Entry 1 Substance NKA Reaction Type Allergy Last Modified By: Kathryn Schaefer RN 05/24/16 14:12:02 Case Attendance- IR Entry 1 Entry 2 Entry 3 Case Attendee REBEKAH GIL PA-C, Herminia Singleton Broth Mixer Role Performed Primary Surgeon Procedure Nurse Circulating Technologist Details Time In 08/10/22 15:25:00 08/10/22 15:25:00 08/10/22 15:25:00 Time Out 08/10/22 15:43:00 08/10/22 15:43:00 08/10/22 15:43:00 Procedure/Preference IR Temporary Dialysis IR Temporary Dialysis IR Temporary Dialysis Card Catheter SN Catheter SN Catheter SN Last Modified By: DENISE Castro RN Fran M Dean, RN Fran M 08/10/22 15:43:54 08/10/22 15:43:54 08/10/22 15:43:54 Entry 4 Case Attendee Hong Lopez Role Performed Scrub Technologist Details Time In 08/10/22 15:25:00 Time Out 08/10/22 15:43:00 Procedure/Preference IR Temporary Dialysis Card Catheter SN Last Modified By: DENISE Castro 08/10/22 15:43:54 Radiology Procedures- IR Entry 1 Procedure/Preference IR Temporary Dialysis Actual Procedure Temporary Dialysis Card Catheter SN Catheter Primary Procedure Yes Primary Surgeon REBEKAH GIL PA-C Anesthesia/Sedation Local Type Additional Procedure Times Start 08/10/22 15:31:00 Stop 08/10/22 15:41:00 Specialty Service SN Radiology Procedure EBL 2 mL Last Modified By: DENISE Castro 08/10/22 15:41:11 Radiology Procedure Details - IR Entry 1 Radiology Sedation Case Times Sedation Total Time 0 Radiology - Fluid/Drainage Radiology Contrast Contrast Used? No Radiology Flouroscopy Fluoroscopy Used? Yes Fluoro Dose (mGy) 68 Fluoro Time 0.6 MIN Radiology Local Local Used? Yes Local Type: 1 % lidocaine Local Dose 10cc Radiology Procedure Site Site/Location right IJ Site Condition No complications Dressing Type Transparent, Dressing Hydrocolloid Last Modified By: Eliza Rodriguez 08/12/22 10:12:44 General Case Data - IR Entry 1 Case Information Room AH IR 16 Case Level IR Level 2 Wound Class None Specialty SN Radiology Procedure ASA Class None Diagnosis Preop Diagnosis heart failure Postop Same As Preop Yes exacerbation Postop Diagnosis heart failure exacerbation Last Modified By: DENISE Castro 08/10/22 15:05:46 Procedure Case Times- IR Entry 1 Patient In Procedure Patient In OR 08/10/22 15:25:00 Patient Out of OR 08/10/22 15:43:00 Procedure Start/Stop Procedure Start Time 08/10/22 15:31:00 Procedure Stop Time 08/10/22 15:41:00 Last Modified By: DENISE Castro 08/10/22 15:43:54 Immediate Post Procedure Note - IR Entry 1 Immediate Post Yes Procedure Note displayed for Physician to review Closure Technique Closure Technique Other than Primary Last Modified By: DENISE Castro 08/10/22 15:05:02 Immediate Post Procedure Note - IR Signed By: REBEKAH GIL PA-C 08/10/22 15:41 Allergy Information- IR Entry 1 Allergies Reviewed? Yes Allergies Reviewed Medical Record With Last Modified By: DENISE Castro 08/10/22 15:02:32 Radiology Protocols/Time Out- IR Entry 1 Preprocedure Clinician Verifies Correct patient ID When Clinically Confirmation of correct using name & date Indicated side(s) and site(s), or MRN, Accurate Correct diagnostic and procedure, complete radiology tests Informed Consent, H & P available, Required update immediately blood products, prior to procedure, if implants, devices applicable and/or special equipment available OR/Procedure Room/Bedside Time 08/10/22 15:31:00 Clinician Verifies Correct patient identity including EMR & records using name and date or medical record number, Accurate procedure consent form, Correct patient position, Necessary equipment is available, Anticipated non-routine events with surgical team (case duration, estimated blood loss, patient specific concerns). When Applicable Confirmation correct Team Members REBEKAH GIL side and site marked, Present for Time Out Matthew HAZEL RN Fran M, Relevant images and TruHerminia L results are properly Broth Mixer, Hong Lopez labeled and Tech Liz A appropriately displayed, Alcohol based prep dry Instrument Sterility Team Members Bollon, Broth Mixer Liz A Verifying Sterility Procedure IR Temporary Dialysis Catheter SN Last Modified By: DENISE Castro 08/10/22 15:31:58 Skin Prep- IR Entry 1 Procedure IR Temporary Dialysis Catheter SN Skin Prep Prep Area Chest Side Right By Hong Lopez Prep Agents Chloraprep Hair Removal Method N/A Last Modified By: DENISE Castro 08/10/22 15:04:37 Patient Positioning- IR Entry 1 Procedure IR Temporary Dialysis Body Position OP Supine Catheter SN Feet Uncrossed? Yes Pressure Points Yes Checked Last Modified By: DENISE Castro 08/10/22 15:04:50 Radiology Procedure Plan - IR Entry 1 Radiology - Nursing Care Plan Outcome Statement The patient Outcome Statement The patient receives demonstrates knowledge Cont. appropriate of the expected medication(s), safely responses to the administered during the operative/invasive perioperative/invasive procedure., The period., The patient is patient's value system, free from signs and lifestyle, ethnicity, symptoms of injury and culture are caused by extraneous considered, respected, objects (equipment, and incorporated in the instrumentation, perioperative plan of sponges, or sharps)., care., The patient is The patient is free free from signs and from signs and symptoms symptoms of infection., of electrical injury., The patient is free The patient is at or from signs and symptoms returning to of injury related to normothermia at the positioning. conclusion of the immediate postoperative/invasive period. Radiology - Action Plan Outcomes Met? Yes Patient Safety Manager DENISE Castro Completing Procedure Plan Last Modified By: DENISE Castro 08/10/22 15:05:31 Transfer Post Procedure- IR Entry 1 RAD - Transport to Recovery [facility] with Monitor Post-op Destination Dialysis Post Procedure Time Out Double Verification Yes Date/Time Verified 08/10/22 15:43:00 of ID band on patient Completed Verfied ID Band on DENISE Castro by Last Modified By: DENISE Castro 08/10/22 15:43:50 Case Comments Lidocaine amount added to Radiology Procedure Details tab-[email or web address].Michael CHAPARRO(R)-Wind Field Manager 08/12/22 Finalized By: Eliza Rodriguez Document Signatures Signed By: DENISE Castro 08/10/22 15:44 DENISE Castro 08/10/22 15:46 Eliza Rodriguez 08/12/22 10:13 [facility] [id number] Pulmonary Progress note Date of Service 08/12/22 Subjective 2 12 L salter cannula, wore BiPAP overnight, net -1.9 L Objective Vitals and Measurements T: 36.7 C (Axillary) TMIN: 36.5 C (Oral) TMAX: 36.8 C (Skin) HR: 67(Monitored) RR: 20 BP: 132/56 SpO2: 94% WT: 179 kg Intake and Output 7AM Yesterday to 7AM Today Intake and Output (Last 24 hours) Intake Oral Intake 780.00 Output Urine Voided 1070.00 Hemodialysis 1233.00 Total Summary Total Intake 780.00 Total Output 2303.00 Fluid Balance -1523.00 Physical Exam General-no acute distress, alert HEENT-normocephalic, atraumatic, extraocular movements intact, dialysis line in right neck Pulmonary-relatively clear, no wheeze Cardiovascular-regular, no appreciable murmurs, gallops or rubs Abdomen-soft, morbidly obese, bowel sounds positive, nontender Extremities-bilateral lower extremity edema with chronic venous stasis changes noted, no cyanosis or clubbing Neurologic-grossly nonfocal Weight Current Weight Dosing Weight: 0 kg (08/11/22) Current Weight: 179 kg (08/12/22) Dosing Weight: 170.7 kg (08/08/22) Current Weight: 171.9 kg (08/09/22) Medications Medications (6) Active Scheduled: (6) aspirin 81 mg Chewable 81 mg 1 tab(s), Oral, qDayM bumetanide 0.25 mg/1 mL 4 mL VIAL 2 mg 8 mL, IV Push, BID carvedilol 25 mg tablet 25 mg 1 tab(s), Oral, BID heparin 5,000 units/mL (1 mL) vial 5,000 unit(s) 1 mL, Subcutaneous, q8h hydralazine 50 mg Tablet 100 mg 2 tab(s), Oral, TID isosorbide mononitrate 30 mg ER tablet 30 mg 1 tab(s), Oral, qDayAC Continuous: (0) PRN: (0) Lab Results 08/12 05:48 Glucose Level: 100 Sodium Level: 140 Potassium Level: 4.7 BUN: 91.0 H Creatinine Lvl (s): 2.35 H 08/11 05:43 WBC: 5.1 Hgb: 14.3 Hct: 45.5 Platelet: 202 Neutrophil %: 86.2 H Glucose Level: 111 Sodium Level: 138 Potassium Level: 5.1 H BUN: 89.0 H Creatinine Lvl (s): 2.80 H EKG No qualifying data available. Assessment/Plan 1. Acute on chronic hypercapnic respiratory failure and acute hypoxic respiratory failure 2. Heart failure exacerbation 3. ANDRADE/OHS on AVAPS at home with 5 L bleeding at night 4. BRYANNA on CKD Plan: Acute on chronic hypercapnia likely secondary to heart failure exacerbation. Patient currently not in any respiratory distress normal mentation and no asterixis on exam. Recommend to continue diuresis by cardiology and recheck ABG after adequate period of diuresis Continue home AVAPS unit at night with oxygen bled in Wean FiO2 to maintain saturation more than 90%, have asked his bedside nurse to keep him closer to the 88 to 92% range Abnormal opacities on CT scan likely due to volume overload and atelectasis. He does not have any infectious symptoms. He will need a repeat CT scan as outpatient in 2 to 3 months to follow-up for resolution -Fluid removal with dialysis as you are Time Spent 15 minutes Digitally Signed by HILTON OLVERA MD on 08/12/2022 09:31 AM [facility] [id number] Nephrology Progress note Date of Service 08/11/2022 Chief Complaint no complaints Subjective patient is sitting up in a chair on 10L high flow O2 NC. Denies dyspnea or chest pain. 3+ edema in lower legs. UO was over 2L in 24 hours. IUF dialysis tx today for another 1-2Liters off. Objective Vitals and Measurements T: 37.1 C (Oral) TMIN: 36.4 C (Skin) TMAX: 37.1 C (Oral) HR: 64(Monitored) RR: 20 BP: 122/70 SpO2: 93% Intake and Output 7AM Yesterday to 7AM Today Intake and Output (Last 24 hours) Intake Oral Intake 240.00 Output Urine Voided 640.00 Hemodialysis 1500.00 Total Summary Total Intake 240.00 Total Output 2140.00 Fluid Balance -1900.00 Physical Exam HEENT: PERRLA, BiPAP mask present Respiratory: Bilateral air entry is present, decreased at bases Cardiovascular: S1-S2 present, no rub Abdomen: Morbidly obese, soft, NT, BS present Extremities: Bilateral 2+-3+ pedal edema present, PP present Weight Current Weight Dosing Weight: 170.7 kg (08/08/22) Current Weight: 171.9 kg (08/09/22) Dosing Weight: 170.8 kg (08/06/22) Medications Medications (5) Active Scheduled: (5) aspirin 325 mg tablet 325 mg 1 tab(s), Oral, qDay carvedilol 25 mg tablet 25 mg 1 tab(s), Oral, BID heparin 5,000 units/mL (1 mL) vial 5,000 unit(s) 1 mL, Subcutaneous, q8h hydralazine 50 mg Tablet 100 mg 2 tab(s), Oral, TID isosorbide mononitrate 30 mg ER tablet 30 mg 1 tab(s), Oral, qDayAC Continuous: (0) PRN: (0) Lab Results 08/11 05:43 WBC: 5.1 Hgb: 14.3 Hct: 45.5 Platelet: 202 Neutrophil %: 86.2 H Glucose Level: 111 Sodium Level: 138 Potassium Level: 5.1 H BUN: 89.0 H Creatinine Lvl (s): 2.80 H 08/10 05:26 Glucose Level: 104 Sodium Level: 138 Potassium Level: 5.0 BUN: 86.0 H Creatinine Lvl (s): 3.43 H EKG No qualifying data available. Assessment/Plan Orders: Basic Metabolic Panel Non-oliguric BRYANNA on stage III CKD: BRYANNA due to contrast and cardiorenal syndrome. Worsening renal function and respiratory status, IUF today for 2L fluid removal Hyperkalemia: Resolved Acute on chronic CHF exacerbation with reduced EF: IUF treatment today, as BP tolerates Metabolic alkalosis Acute on chronic respiratory failure: Increasing oxygen requirement, currently on BiPAP with FiO2 of 80% Hypertension: BP acceptable Diabetes Morbid obesity Pulmonary hypertension Plan: IUF today for 1-2L off, discussed with patient. Labs in AM. Monitor renal function and urine output for renal recovery. Will follow. Digitally Signed by SOFI LAW on 08/11/2022 12:40 PM [facility] [id number] Note. MICRO - Microbiology PROCEDURE: Blood Culture (bacterial) [*1] SOURCE: Blood BODY SITE: COLLECTED DATE/TIME: 08/06/2022 09:46 EST RECEIVED DATE/TIME: 08/06/2022 11:18 EST START DATE/TIME: 08/06/2022 11:18 EST FREE TEXT SOURCE: FINAL REPORTS Final Report [] Verified Date/Time/Personnel: 08/11/2022 11:59 EST Blood Culture: No Growth at 5 days. PRELIMINARY REPORTS Preliminary Report [] Verified Date/Time/Personnel: 08/06/2022 11:59 EST Culture has been received in lab and is no growth to date. Routine cultures are held for 5 days. Performing Locations *1: This test was performed at: [address], [address] [place], [place] [id number] Note. MICRO - Microbiology PROCEDURE: Blood Culture (bacterial) [*1] SOURCE: Blood BODY SITE: COLLECTED DATE/TIME: 08/06/2022 09:46 EST RECEIVED DATE/TIME: 08/06/2022 11:18 EST START DATE/TIME: 08/06/2022 11:18 EST FREE TEXT SOURCE: FINAL REPORTS Final Report [] Verified Date/Time/Personnel: 08/11/2022 11:59 EST Blood Culture: No Growth at 5 days. PRELIMINARY REPORTS Preliminary Report [] Verified Date/Time/Personnel: 08/06/2022 11:59 EST Culture has been received in lab and is no growth to date. Routine cultures are held for 5 days. Performing Locations *1: This test was performed at: [address], [address] [place], [place] [id number] Cardiology Progress note Date of Service 08/11/22 Subjective Patient seen and examined at bedside. No acute overnight events. Had hemodialysis yesterday with 1.5 L removed. Remains on high flow nasal cannula 12 L. Objective Vitals and Measurements T: 37.1 C (Oral) TMIN: 36.4 C (Skin) TMAX: 37.1 C (Oral) HR: 64(Monitored) RR: 20 BP: 122/70 SpO2: 93% Intake and Output 7AM Yesterday to 7AM Today Intake and Output (Last 24 hours) Intake Oral Intake 240.00 Output Urine Voided 640.00 Hemodialysis 1500.00 Total Summary Total Intake 240.00 Total Output 2140.00 Fluid Balance -1900.00 Physical Exam GENERAL: Pt is comfortable in bed. On BiPAP PSYCH: Drowsy and lethargic HEENT: Sclera clear, trachea midline NEURO: No focal neurologic deficits ENDO: Thyroid is non-palpable NECK: JVD diffuse crackles CVS: S1 & S2 audible, Regular Rate and Rhythm, No Murmurs LUNG: Adequate air entry. GI: + BS, Abdomen is Soft EXTREMITIES: Significant lower extremity pitting edema SKIN: Warm & Dry Weight Current Weight Dosing Weight: 170.7 kg (08/08/22) Current Weight: 171.9 kg (08/09/22) Dosing Weight: 170.8 kg (08/06/22) Medications Medications (5) Active Scheduled: (5) aspirin 325 mg tablet 325 mg 1 tab(s), Oral, qDay carvedilol 25 mg tablet 25 mg 1 tab(s), Oral, BID heparin 5,000 units/mL (1 mL) vial 5,000 unit(s) 1 mL, Subcutaneous, q8h hydralazine 50 mg Tablet 100 mg 2 tab(s), Oral, TID isosorbide mononitrate 30 mg ER tablet 30 mg 1 tab(s), Oral, qDayAC Continuous: (0) PRN: (0) Lab Results 08/11 05:43 WBC: 5.1 Hgb: 14.3 Hct: 45.5 Platelet: 202 Neutrophil %: 86.2 H Glucose Level: 111 Sodium Level: 138 Potassium Level: 5.1 H BUN: 89.0 H Creatinine Lvl (s): 2.80 H 08/10 05:26 Glucose Level: 104 Sodium Level: 138 Potassium Level: 5.0 BUN: 86.0 H Creatinine Lvl (s): 3.43 H EKG No qualifying data available. Assessment/Plan Acute hypoxic hypercapnic respiratory failure Acute on chronic systolic and diastolic heart failure LVEF decreased to 25 to 30% Probable PHTN (dilated pulmonary trunk, contrast reflux in IVC) Nonischemic cardiomyopathy Mild angiographic CAD 01/2021 History of pulmonary embolism Diabetes, hypertension, ANDRADE, ascending aortic aneurysm 5.[address] not interested in follow-up or surgery, obesity Scattered calcified lung, 1.2 cm granulomas irregular nodule consolidation BRYANNA likely secondary to contrast exposure Hyperkalemia CVC: AQ Mr. Muniz is a 67-year-old man with NICM, follows with Dr. Jin in clinic, he presents ER withacute decompensated heart failure of few days duration of unclear trigger. He is compliant with hismedications including bumetanide 2 mg p.o. 3 times daily, minimizes salt intake, no recent chest pain, palpitation, however endorses some lightheadedness. No evidence of A-fib in our available records. Surface echo 1. Left ventricle: The cavity size is increased. Wall thickness is normal. Systolic function is severely reduced. The estimated ejection fraction is 25-30%. There is severe diffuse hypokinesis. Grade II diastolic dysfunction. 2. Aortic valve: Transvalvular velocity is increased. There is moderate stenosis. The LVOT to aortic valve VTI ratio is 0.34. 3. Mitral valve: The annulus is mildly calcified. The leaflets are moderately thickened. Thickening. 4. Right ventricle: The cavity size is increased. 5. Right atrium: The atrium is dilated. Plan: I had hemodialysis yesterday with 1.5 L removed. Plan for repeat hemodialysis today for fluid management. Still requiring significant oxygen requirement with high flow nasal cannula. Creatinine slightly improved since yesterday. Making 500 to 600 cc of urine. Nephrology on board. Volume management with hemodialysis. -Continue hydralazine to 100mg 3 times daily and Imdur for afterload reduction -Hold off on RAAS inhibitor given BRYANNA and hyperkalemia. Continue monitor BMP. Need further GDMT optimization once hemodynamics and kidney function permits. -Pulmonary on board for respiratory failure. Continue to monitor, Rec appreciated. Chest x-ray showing mild bibasilar atelectasis present consolidation. Incentive spirometry. -Counseled patient extensively about genetic and radiologic testing of his ascending aortic aneurysm (he is brother of dissection age 27) he continues to adamantly decline testing and treatment for it, understanding that he has risk of sudden , his direct family members are aware of the condition and the familial component. -PT OT for discharge planning -Continue to monitor hemodynamics CODE STATUS: DNR/DNI, except electrical shock and inotropes/vasoactive medicine. Digitally Signed by ROLAND FOUNTAIN MD on 08/11/2022 01:43 PM Digitally Signed by ROLAND FOUNTAIN MD on 08/11/2022 01:45 PM [facility] [id number] Note ORIGINAL HISTORY: CHF COMPARISON: 06 August 2022 FINDINGS: The study is limited by habitus. The film is mildly rotated. There is a right-sided port with tip in the right atrium. There are mild streaky and patchy airspace opacities in the lung bases. The pulmonary vasculature is unremarkable in appearance. IMPRESSION: Mild basilar atelectasis and or consolidation. Interpreted by: Shamika Gonsales MD Preliminary Report By: Shamika Gonsales MD Electronically signed By Shamika Gonsales MD Dictated Date: 08/11/2022 12:43:26 PM Prelim Date: 08/11/2022 12:44:18 PM Sign Date: 08/11/2022 12:44:18 PM [facility] [id number] Nephrology Progress note Date of Service 08/11/2022 Chief Complaint no complaints Subjective patient is sitting up in a chair on 10L high flow O2 NC. Denies dyspnea or chest pain. 3+ edema in lower legs. UO was over 2L in 24 hours. IUF dialysis tx today for another 1-2Liters off. Objective Vitals and Measurements T: 37.1 C (Oral) TMIN: 36.4 C (Skin) TMAX: 37.1 C (Oral) HR: 64(Monitored) RR: 20 BP: 122/70 SpO2: 93% Intake and Output 7AM Yesterday to 7AM Today Intake and Output (Last 24 hours) Intake Oral Intake 240.00 Output Urine Voided 640.00 Hemodialysis 1500.00 Total Summary Total Intake 240.00 Total Output 2140.00 Fluid Balance -1900.00 Physical Exam HEENT: PERRLA, BiPAP mask present Respiratory: Bilateral air entry is present, decreased at bases Cardiovascular: S1-S2 present, no rub Abdomen: Morbidly obese, soft, NT, BS present Extremities: Bilateral 2+-3+ pedal edema present, PP present Weight Current Weight Dosing Weight: 170.7 kg (08/08/22) Current Weight: 171.9 kg (08/09/22) Dosing Weight: 170.8 kg (08/06/22) Medications Medications (5) Active Scheduled: (5) aspirin 325 mg tablet 325 mg 1 tab(s), Oral, qDay carvedilol 25 mg tablet 25 mg 1 tab(s), Oral, BID heparin 5,000 units/mL (1 mL) vial 5,000 unit(s) 1 mL, Subcutaneous, q8h hydralazine 50 mg Tablet 100 mg 2 tab(s), Oral, TID isosorbide mononitrate 30 mg ER tablet 30 mg 1 tab(s), Oral, qDayAC Continuous: (0) PRN: (0) Lab Results 08/11 05:43 WBC: 5.1 Hgb: 14.3 Hct: 45.5 Platelet: 202 Neutrophil %: 86.2 H Glucose Level: 111 Sodium Level: 138 Potassium Level: 5.1 H BUN: 89.0 H Creatinine Lvl (s): 2.80 H 08/10 05:26 Glucose Level: 104 Sodium Level: 138 Potassium Level: 5.0 BUN: 86.0 H Creatinine Lvl (s): 3.43 H EKG No qualifying data available. Assessment/Plan Orders: Basic Metabolic Panel Non-oliguric BRYANNA on stage III CKD: BRYANNA due to contrast and cardiorenal syndrome. Worsening renal function and respiratory status, IUF today for 2L fluid removal Hyperkalemia: Resolved Acute on chronic CHF exacerbation with reduced EF: IUF treatment today, as BP tolerates Metabolic alkalosis Acute on chronic respiratory failure: Increasing oxygen requirement, currently on BiPAP with FiO2 of 80% Hypertension: BP acceptable Diabetes Morbid obesity Pulmonary hypertension Plan: IUF today for 1-2L off, discussed with patient. Labs in AM. Monitor renal function and urine output for renal recovery. Will follow. Digitally Signed by SOFI LAW on 08/11/2022 12:40 PM [facility] [id number] Note ORIGINAL HISTORY: CHF COMPARISON: 06 August 2022 FINDINGS: The study is limited by habitus. The film is mildly rotated. There is a right-sided port with tip in the right atrium. There are mild streaky and patchy airspace opacities in the lung bases. The pulmonary vasculature is unremarkable in appearance. IMPRESSION: Mild basilar atelectasis and or consolidation. Interpreted by: Shamika Gonsales MD Preliminary Report By: Shamika Gonsales MD Electronically signed By Shamika Gonsales MD Dictated Date: 08/11/2022 12:43:26 PM Prelim Date: 08/11/2022 12:44:18 PM Sign Date: 08/11/2022 12:44:18 PM Ordering Provider: [facility]02-22-2023 Note ORIGINAL PROCEDURE: TEMPORARY DIALYSIS CATHETER WITH ULTRASOUND AND FLUOROSCOPIC GUIDANCE: 08/10/2022 CAMPUS MONITOR: Rebekah Gil PA-C CLINICAL STATEMENT: AK I COMPARISON: None MATERIALS UTILIZED: 14 Fr x 20 cm SLX Hemo-Cath double lumen catheter Probe cover Micropuncture set 2-0 Ethibond suture ANESTHESIA: Local FLUOROSCOPY: 41 seconds AIR KERMA DOSE: 68 mGy SITE OF PUNCTURE: Right internal jugular vein The procedure, risks, and alternatives, were discussed with the patient and all questions were answered. Written informed consent obtained. Accompanying paperwork was verified for accuracy. Directed history and physical exam performed prior to the procedure. Medication reconciliation performed by nursing personnel. Procedure was performed using a cap, sterile gown, sterile gloves, a large sterile sheet, hand hygiene and 2% chlorhexidine for cutaneous antisepsis. The patient was positioned supine on the table and prepped and draped in usual sterile fashion. A critical pause was performed with assisting personnel just prior to the procedure with the patient's identity confirmed using 2 identifiers, confirming site and side. Preliminary ultrasound of the target vessel demonstrated a widely patent vein and an image was obtained. 2% lidocaine was administered at the puncture site for local anesthesia. A tiny skin incision was made. The vein was cannulated under direct sonographic guidance with a micropuncture set. A wire was advanced into the IVC. After serial dilatation, the catheter was advanced over the wire under fluoroscopy. The wire was removed. Fluoroscopy demonstrated the catheter tip to be near the cavoatrial junction. A final fluoroscopic image was obtained. All lumens were aspirated and flushed with saline. Sterile caps were attached to each lumen. The catheter was fixed to the skin with 2-0 Ethibond suture. IMPRESSION: 1. Successful placement of a temporary hemodialysis catheter Procedure performed by Rebekah Gil PA-C. I concur contents of this report. Interpreted by: Joanne Castro Preliminary Report By: Rebekah Gil, PA-C Electronically signed By Joanne Castro Dictated Date: 08/12/2022 11:06:46 AM Prelim Date: 08/12/2022 11:08:47 AM Sign Date: 08/12/2022 7:05:53 PM Ordering Provider: [facility] [id number] Note IR Brief Post Procedure Note Preprocedure Dx: BRYANNA Postprocedure Dx: same Procedure: Temporary dialysis catheter placement Anesthesia: Local EBL: Minimal Complications: None Status: Unchanged Findings 1. Temporary dialysis catheter placed in Right IJ Plan 1. May use now Digitally Signed by REBEKAH GIL PA-C on 08/10/2022 03:50 PM [facility] [id number] Cardiology Progress note Date of Service 08/10/2022 Subjective Patient seen and examined at bedside. Complaining of worsening shortness of breath. Urine output [id number] mL in the last 24 hours. He is currently on BiPAP. Very drowsy and lethargic today. Plan for hemodialysis given worsening kidney function. Objective Vitals and Measurements T: 36.5 C (Axillary) TMIN: 36.5 C (Axillary) TMAX: 37.2 C (Axillary) HR: 64(Monitored) RR: 22 BP: 147/67 SpO2: 93% Intake and Output 7AM Yesterday to 7AM Today Intake and Output (Last 24 hours) Intake Oral Intake 240.00 Output Urine Voided 900.00 Total Summary Total Intake 240.00 Total Output 900.00 Fluid Balance -660.00 Physical Exam GENERAL: Pt is comfortable in bed. On BiPAP PSYCH: Drowsy and lethargic HEENT: Sclera clear, trachea midline NEURO: No focal neurologic deficits ENDO: Thyroid is non-palpable NECK: JVD diffuse crackles CVS: S1 & S2 audible, Regular Rate and Rhythm, No Murmurs LUNG: Adequate air entry. GI: + BS, Abdomen is Soft EXTREMITIES: Significant lower extremity pitting edema SKIN: Warm & Dry Weight Current Weight Dosing Weight: 170.7 kg (08/08/22) Current Weight: 171.9 kg (08/09/22) Dosing Weight: 170.8 kg (08/06/22) Medications Medications (5) Active Scheduled: (5) aspirin 325 mg tablet 325 mg 1 tab(s), Oral, qDay carvedilol 25 mg tablet 25 mg 1 tab(s), Oral, BID heparin 5,000 units/mL (1 mL) vial 5,000 unit(s) 1 mL, Subcutaneous, q8h hydralazine 50 mg Tablet 100 mg 2 tab(s), Oral, TID isosorbide mononitrate 30 mg ER tablet 30 mg 1 tab(s), Oral, qDayAC Continuous: (0) PRN: (0) Lab Results 08/10 05:26 Glucose Level: 104 Sodium Level: 138 Potassium Level: 5.0 BUN: 86.0 H Creatinine Lvl (s): 3.43 H 08/09 03:09 Glucose Level: 158 H Sodium Level: 135 L Potassium Level: 5.1 H BUN: 77.0 H Creatinine Lvl (s): 3.03 H EKG No qualifying data available. Assessment/Plan Acute hypoxic hypercapnic respiratory failure Acute on chronic systolic and diastolic heart failure LVEF decreased to 25 to 30% Probable PHTN (dilated pulmonary trunk, contrast reflux in IVC) Nonischemic cardiomyopathy Mild angiographic CAD 01/2021 History of pulmonary embolism Diabetes, hypertension, ANDRADE, ascending aortic aneurysm 5.[address] not interested in follow-up or surgery, obesity Scattered calcified lung, 1.2 cm granulomas irregular nodule consolidation BRYANNA likely secondary to contrast exposure Hyperkalemia CVC: AQ Mr. Muniz is a 67-year-old man with NICM, follows with Dr. Jin in clinic, he presents ER withacute decompensated heart failure of few days duration of unclear trigger. He is compliant with hismedications including bumetanide 2 mg p.o. 3 times daily, minimizes salt intake, no recent chest pain, palpitation, however endorses some lightheadedness. No evidence of A-fib in our available records. Surface echo 1. Left ventricle: The cavity size is increased. Wall thickness is normal. Systolic function is severely reduced. The estimated ejection fraction is 25-30%. There is severe diffuse hypokinesis. Grade II diastolic dysfunction. 2. Aortic valve: Transvalvular velocity is increased. There is moderate stenosis. The LVOT to aortic valve VTI ratio is 0.34. 3. Mitral valve: The annulus is mildly calcified. The leaflets are moderately thickened. Thickening. 4. Right ventricle: The cavity size is increased. 5. Right atrium: The atrium is dilated. Plan: -Worsening kidney function with suboptimal urine output. Spoke with nephrology who plans to put temporary dialysis catheter and plan for dialysis today. Oxygen requirement is increasing as well and patient is slightly lethargic today. Volume management with hemodialysis. -Increase hydralazine to 100mg 3 times daily for afterload reduction and better blood pressure control. -Continue Imdur -Hold off on RAAS inhibitor given BRYANNA and hyperkalemia. Continue monitor BMP. Need further GDMT optimization once hemodynamics and kidney function permits. -Pulmonary on board and believe respiratory status is secondary to volume overload. Continue to monitor Rec appreciated. -Counseled patient extensively about genetic and radiologic testing of his ascending aortic aneurysm (he is brother of dissection age 25) he continues to adamantly decline testing and treatment for it, understanding that he has risk of sudden , his direct family members are aware of the condition and the familial component. -Continue to monitor hemodynamics CODE STATUS: DNR/DNI, except electrical shock and inotropes/vasoactive medicine. Digitally Signed by ROLAND FOUNTAIN MD on 08/10/2022 03:07 PM [facility] [id number] Nephrology Progress note Date of Service 08/10/2022 Chief Complaint Shortness of breath. Subjective Patient is lying in bed. He is currently on BiPAP with FiO2 of 80%. Urine output is documented as 1400 mL over 24 hours. Complains of worsening breathing. He is also very drowsy and lethargic. Denies any dizziness or lightheadedness. Objective Vitals and Measurements T: 36.5 C (Oral) TMIN: 36.5 C (Oral) TMAX: 36.7 C (Oral) HR: 70(Monitored) RR: 24 BP: 140/58 SpO2: 96% Physical Exam HEENT: PERRLA, BiPAP mask present Respiratory: Bilateral air entry is present, decreased at bases Cardiovascular: S1-S2 present, no rub Abdomen: Morbidly obese, soft, NT, BS present Extremities: Bilateral 2+-3+ pedal edema present, PP present Lab Results 08/10 05:26 Glucose Level: 104 Sodium Level: 138 Potassium Level: 5.0 BUN: 86.0 H Creatinine Lvl (s): 3.43 H CO2: 39 Calcium: 8.6 Magnesium: 2.9 08/09 03:09 Glucose Level: 158 H Sodium Level: 135 L Potassium Level: 5.1 H BUN: 77.0 H Creatinine Lvl (s): 3.03 H Assessment/Plan Non-oliguric BRYANNA on stage III CKD: BRYANNA due to contrast and cardiorenal syndrome. Worsening renal function and respiratory status Hyperkalemia: Resolved Acute on chronic CHF exacerbation with reduced EF: Will attempt fluid removal with dialysis, okay to continue diuretics Metabolic alkalosis Acute on chronic respiratory failure: Increasing oxygen requirement, currently on BiPAP with FiO2 of 80% Hypertension: BP acceptable Diabetes Morbid obesity Pulmonary hypertension Had a prolonged discussion with patient about his worsening renal function and respiratory status with fluid overload. Explained him that he will need acute dialysis. He understands and agrees with the plan. Also discussed with Dr. Sifuentes, cardiology team. Discussed with nursing staff. Will request IR for temporary HD catheter placement and initiate dialysis today. Labs in AM. Monitor renal function and urine output for renal recovery. Will follow. Digitally Signed by JEREMIE GRIMM MD on 08/10/2022 10:28 AM [facility] [id number] Pulmonary Progress note Date of Service 08/10/22 Subjective Doing okay, breathing okay Objective Vitals and Measurements T: 36.5 C (Oral) TMIN: 36.5 C (Oral) TMAX: 36.7 C (Oral) HR: 70(Monitored) RR: 24 BP: 126/72 SpO2: 96% Intake and Output 7AM Yesterday to 7AM Today Intake and Output (Last 24 hours) Intake Oral Intake 690.00 Output Urine Voided 1200.00 Total Summary Total Intake 690.00 Total Output 1200.00 Fluid Balance -510.00 Physical Exam General-no acute distress, alert HEENT-normocephalic, atraumatic, extraocular movements intact Pulmonary-relatively clear, no wheeze Cardiovascular-regular, no appreciable murmurs, gallops or rubs Abdomen-soft, morbidly obese, bowel sounds positive, nontender Extremities-bilateral lower extremity edema with chronic venous stasis changes noted, no cyanosis or clubbing Neurologic-grossly nonfocal Weight Current Weight Dosing Weight: 170.7 kg (08/08/22) Current Weight: 171.9 kg (08/09/22) Dosing Weight: 170.8 kg (08/06/22) Medications Medications (5) Active Scheduled: (5) aspirin 325 mg tablet 325 mg 1 tab(s), Oral, qDay carvedilol 25 mg tablet 25 mg 1 tab(s), Oral, BID heparin 5,000 units/mL (1 mL) vial 5,000 unit(s) 1 mL, Subcutaneous, q8h hydralazine 25 mg Tablet 75 mg 3 tab(s), Oral, TID isosorbide mononitrate 30 mg ER tablet 30 mg 1 tab(s), Oral, qDayAC Continuous: (0) PRN: (0) Lab Results 08/10 05:26 Glucose Level: 104 Sodium Level: 138 Potassium Level: 5.0 BUN: 86.0 H Creatinine Lvl (s): 3.43 H 08/09 03:09 Glucose Level: 158 H Sodium Level: 135 L Potassium Level: 5.1 H BUN: 77.0 H Creatinine Lvl (s): 3.03 H EKG No qualifying data available. Assessment/Plan 1. Acute on chronic hypercapnic respiratory failure and acute hypoxic respiratory failure 2. Heart failure exacerbation 3. ANDRADE/OHS on AVAPS at home with 5 L bleeding at night 4. BRYANNA on CKD Plan: Acute on chronic hypercapnia likely secondary to heart failure exacerbation. Patient currently not in any respiratory distress normal mentation and no asterixis on exam. Recommend to continue diuresis by cardiology and recheck ABG after adequate period of diuresis Continue home AVAPS unit at night with oxygen bled in Wean FiO2 to maintain saturation more than 90%, have asked his bedside nurse to keep him closer to the 88 to 92% range Abnormal opacities on CT scan likely due to volume overload and atelectasis. He does not have any infectious symptoms. He will need a repeat CT scan as outpatient in 2 to 3 months to follow-up for resolution Time Spent 15 minutes Digitally Signed by HILTON OLVERA MD on 08/10/2022 02:49 PM [facility] [id number] Nephrology Progress note Date of Service 08/09/2022 Chief Complaint Shortness of breath, weakness. Subjective Patient is sitting in chair. Events noted. Patient is requiring increasing oxygen flow. Currently on 10 L O2 via NC. Urine output of 1000 mL over 24 hours. at bedside. Patient complains of generalized weakness and is intermittently drowsy. Objective Vitals and Measurements T: 36.6 C (Oral) HR: 66(Monitored) RR: 18 BP: 127/53 SpO2: 90% WT: 171.9 kg Physical Exam HEENT: PERRLA Respiratory: Bilateral air entry is present, decreased at bases Cardiovascular: S1-S2 present, no rub Abdomen: Morbidly obese, soft, NT, BS present Extremities: Bilateral 2+-3+ pedal edema present, PP present Medications Medications (5) Active Scheduled: (5) aspirin 325 mg tablet 325 mg 1 tab(s), Oral, qDay carvedilol 25 mg tablet 25 mg 1 tab(s), Oral, BID heparin 5,000 units/mL (1 mL) vial 5,000 unit(s) 1 mL, Subcutaneous, q8h hydralazine 25 mg Tablet 75 mg 3 tab(s), Oral, TID isosorbide mononitrate 30 mg ER tablet 30 mg 1 tab(s), Oral, qDayAC Continuous: (0) PRN: (0) Lab Results 08/09 03:09 Glucose Level: 158 H Sodium Level: 135 L Potassium Level: 5.1 H BUN: 77.0 H Creatinine Lvl (s): 3.03 H CO2: 39 Calcium: 8.9 Magnesium: 2.7 Phosphorus: 5.4 Urine analysis showed clear urine especially creatinine of 1.015, protein 100 mg/dL, no RBCs or blood. 08/08 05:50 Glucose Level: 106 Sodium Level: 139 Potassium Level: 5.6 H BUN: 91.0 H Creatinine Lvl (s): 2.37 H Assessment/Plan Non-oliguric BRYANNA on stage III CKD: BRYANNA due to contrast and diuretics. Worsening renal function, monitor Hyperkalemia: Mild, continue with low potassium diet Acute on chronic CHF exacerbation with reduced EF: Diuretics were held but due to his worsening respiratory status, he received a dose of Bumex 2 mg IV today Metabolic alkalosis Acute on chronic respiratory failure: Increasing oxygen requirement Hypertension: BP acceptable at present Diabetes Morbid obesity Pulmonary hypertension Continue with current management. Discussed with cook night Dr. Sifuentes earlier. We agreed to give him Bumex 2 mg IV once due to his worsening respiratory status. Monitor urine output. Avoid NSAIDs and nephrotoxins. Labs in AM. Had a prolonged discussion with patient and and told them that if his renal function continuesto worsen, he may need temporary dialysis. He understands and agrees with the plan. Will follow. Digitally Signed by JEREMIE GRIMM MD on 08/09/2022 02:25 PM [facility] [id number] Cardiology Progress note Date of Service 08/09/2022 Subjective Patient seen and examined at bedside. No acute overnight events. Oxygen requirements increased is on 7 L high flow saturating around 90 to 88%. Denies any chest pain. Objective Vitals and Measurements T: 36.6 C (Oral) HR: 66(Monitored) RR: 18 BP: 127/53 SpO2: 90% WT: 171.9 kg Intake and Output 7AM Yesterday to 7AM Today Intake and Output (Last 24 hours) Intake Oral Intake 930.00 Output Urine Voided 1050.00 Total Summary Total Intake 930.00 Total Output 1050.00 Fluid Balance -120.00 Physical Exam GENERAL: Pt is comfortable in bed. PSYCH: Alert and oriented HEENT: Sclera clear, trachea midline NEURO: No focal neurologic deficits ENDO: Thyroid is non-palpable NECK: JVD diffuse crackles CVS: S1 & S2 audible, Regular Rate and Rhythm, No Murmurs LUNG: Adequate air entry. GI: + BS, Abdomen is Soft EXTREMITIES: Significant lower extremity pitting edema SKIN: Warm & Dry Weight Current Weight Dosing Weight: 170.7 kg (08/08/22) Current Weight: 171.9 kg (08/09/22) Dosing Weight: 170.8 kg (08/06/22) Medications Medications (5) Active Scheduled: (5) aspirin 325 mg tablet 325 mg 1 tab(s), Oral, qDay carvedilol 25 mg tablet 25 mg 1 tab(s), Oral, BID heparin 5,000 units/mL (1 mL) vial 5,000 unit(s) 1 mL, Subcutaneous, q8h hydralazine 25 mg Tablet 75 mg 3 tab(s), Oral, TID isosorbide mononitrate 30 mg ER tablet 30 mg 1 tab(s), Oral, qDayAC Continuous: (0) PRN: (0) Lab Results 08/09 03:09 Glucose Level: 158 H Sodium Level: 135 L Potassium Level: 5.1 H BUN: 77.0 H Creatinine Lvl (s): 3.03 H 08/08 05:50 Glucose Level: 106 Sodium Level: 139 Potassium Level: 5.6 H BUN: 91.0 H Creatinine Lvl (s): 2.37 H EKG No qualifying data available. Assessment/Plan Acute hypoxic hypercapnic respiratory failure Acute on chronic systolic and diastolic heart failure LVEF decreased to 25 to 30% Probable PHTN (dilated pulmonary trunk, contrast reflux in IVC) Nonischemic cardiomyopathy Mild angiographic CAD 01/2021 History of pulmonary embolism Diabetes, hypertension, ANDRADE, ascending aortic aneurysm 5.[address] not interested in follow-up or surgery, obesity Scattered calcified lung, 1.2 cm granulomas irregular nodule consolidation BRYANNA likely secondary to contrast exposure Hyperkalemia CVC: AQ Mr. Muniz is a 67-year-old man with NICM, follows with Dr. Jin in clinic, he presents ER withacute decompensated heart failure of few days duration of unclear trigger. He is compliant with hismedications including bumetanide 2 mg p.o. 3 times daily, minimizes salt intake, no recent chest pain, palpitation, however endorses some lightheadedness. No evidence of A-fib in our available records. Surface echo 1. Left ventricle: The cavity size is increased. Wall thickness is normal. Systolic function is severely reduced. The estimated ejection fraction is 25-30%. There is severe diffuse hypokinesis. Grade II diastolic dysfunction. 2. Aortic valve: Transvalvular velocity is increased. There is moderate stenosis. The LVOT to aortic valve VTI ratio is 0.34. 3. Mitral valve: The annulus is mildly calcified. The leaflets are moderately thickened. Thickening. 4. Right ventricle: The cavity size is increased. 5. Right atrium: The atrium is dilated. Plan: -Kidney function continues to deteriorate today creatinine of 3.03 and potassium of 5.1. Nephrologyis on board for BRYANNA and hyperkalemia management. Will defer hyperkalemia management to nephrology. Spoke with nephrology this morning as patient is significantly volume overloaded, they agree with giving Bumex 2 mg IV once to see response. We will monitor BMP. -LFTs and lactic acid within normal limit -Increase hydralazine to 75 3 times daily for afterload reduction and better blood pressure control. -Continue Imdur -Hold off on RAAS inhibitor given BRYANNA and hyperkalemia. Continue monitor BMP. Need further GDMT optimization once hemodynamics and kidney function permits. -Increasing oxygen requirement and hypoxia, pulmonary on board and believe respiratory status is secondary to volume overload. Continue to monitor Yordy appreciated. -Counseled patient extensively about genetic and radiologic testing of his ascending aortic aneurysm (he is brother of dissection age 27) he continues to adamantly decline testing and treatment for it, understanding that he has risk of sudden , his direct family members are aware of the condition and the familial component. -Continue to monitor hemodynamics CODE STATUS: DNR/DNI, except electrical shock and inotropes/vasoactive medicine. Digitally Signed by ROLAND FOUNTAIN MD on 08/09/2022 01:00 PM Digitally Signed by ROLAND FOUNTAIN MD on 08/09/2022 01:00 PM [facility] [id number] Pulmonary Progress note Date of Service 08/09/22 Subjective Saturating in the mid/upper 80's on 6L NC Objective Vitals and Measurements T: 36.6 C (Oral) HR: 72(Monitored) RR: 18 BP: 153/63 SpO2: 86% WT: 171.9 kg Intake and Output 7AM Yesterday to 7AM Today Intake and Output (Last 24 hours) Intake Oral Intake 480.00 Output Urine Voided 550.00 Total Summary Total Intake 480.00 Total Output 550.00 Fluid Balance -70.00 Physical Exam General-no acute distress, alert HEENT-normocephalic, atraumatic, extraocular movements intact Pulmonary-relatively clear, no wheeze Cardiovascular-regular, no appreciable murmurs, gallops or rubs Abdomen-soft, morbidly obese, bowel sounds positive, nontender Extremities-bilateral lower extremity edema with chronic venous stasis changes noted, no cyanosis or clubbing Neurologic-grossly nonfocal Weight Current Weight Dosing Weight: 170.7 kg (08/08/22) Current Weight: 171.9 kg (08/09/22) Dosing Weight: 170.8 kg (08/06/22) Medications Medications (5) Active Scheduled: (5) aspirin 325 mg tablet 325 mg 1 tab(s), Oral, qDay carvedilol 25 mg tablet 25 mg 1 tab(s), Oral, BID heparin 5,000 units/mL (1 mL) vial 5,000 unit(s) 1 mL, Subcutaneous, q8h hydralazine 50 mg Tablet 50 mg 1 tab(s), Oral, TID isosorbide mononitrate 30 mg ER tablet 30 mg 1 tab(s), Oral, qDayAC Continuous: (0) PRN: (0) Lab Results 08/09 03:09 Glucose Level: 158 H Sodium Level: 135 L Potassium Level: 5.1 H BUN: 77.0 H Creatinine Lvl (s): 3.03 H 08/08 05:50 Glucose Level: 106 Sodium Level: 139 Potassium Level: 5.6 H BUN: 91.0 H Creatinine Lvl (s): 2.37 H EKG No qualifying data available. Assessment/Plan 1. Acute on chronic hypercapnic respiratory failure and acute hypoxic respiratory failure 2. Heart failure exacerbation 3. ANDRADE/OHS on AVAPS at home with 5 L bleeding at night 4. BRYANNA on CKD Plan: Acute on chronic hypercapnia likely secondary to heart failure exacerbation. Patient currently not in any respiratory distress normal mentation and no asterixis on exam. Recommend to continue diuresis by cardiology and recheck ABG after adequate period of diuresis Continue home AVAPS unit at night with oxygen bled in Wean FiO2 to maintain saturation more than 90%, have asked his bedside nurse to keep him closer to the 88 to 92% range Abnormal opacities on CT scan likely due to volume overload and atelectasis. He does not have any infectious symptoms. He will need a repeat CT scan as outpatient in 2 to 3 months to follow-up for resolution Time Spent 15 minutes Digitally Signed by HILTON OLVERA MD on 08/09/2022 09:42 AM [facility] [id number] Cardiology Progress note Chief Complaint ADHF Objective Vitals and Measurements T: 36.6 C (Oral) TMIN: 36.6 C (Oral) TMAX: 36.8 C (Oral) HR: 68(Monitored) RR: 20 BP: 137/63 SpO2: 90% HT: 177.8 cm WT: 170.8 kg BMI: 54.03 Intake and Output 7AM Yesterday to 7AM Today Intake and Output (Last 24 hours) Intake Oral Intake 682.00 Output Urine Voided 1325.00 Total Summary Total Intake 682.00 Total Output 1325.00 Fluid Balance -643.00 Physical Exam General Appearance: Comfortable, not in acute distress Cardiac: S1, S2, no murmurs, regular rhythm, normal rate, ++lower extremity edema, +crackles, + JVPdistention, warm extremities. Lungs: No wheezes, normal chest expansion. Abdomen: No tenderness, no distention, normal bowel sounds. Musculoskeletal: No signs of acute synovitis. Neurological: Alert and oriented x3, no focal neurological deficits grossly. Psychiatric: Appropriate, normal mood. [1] Weight Dosing Weight: 170.8 kg (08/06/22) Medications Medications (7) Active Scheduled: (7) amLODIPine 5 mg tablet 5 mg 1 tab(s), Oral, qDay aspirin 325 mg tablet 325 mg 1 tab(s), Oral, qDay bumetanide 0.25 mg/1 mL 4 mL VIAL 2 mg 8 mL, IV Push, TID carvedilol 25 mg tablet 25 mg 1 tab(s), Oral, BID glipizide 5 mg ER tablet 5 mg 1 tab(s), Oral, qAM heparin 5,000 units/mL (1 mL) vial 5,000 unit(s) 1 mL, Subcutaneous, q8h hydralazine 50 mg Tablet 50 mg 1 tab(s), Oral, TID Continuous: (0) PRN: (0) Lab Results 08/07 05:44 Glucose Level: 110 Sodium Level: 138 Potassium Level: 5.2 H BUN: 78.0 H Creatinine Lvl (s): 1.64 H 08/06 09:46 WBC: 5.8 Hgb: 15.3 Hct: 48.9 Platelet: 229 Neutrophil %: 86.5 H Glucose Level: 315 H Sodium Level: 134 L Potassium Level: 5.0 BUN: 61.0 H Creatinine Lvl (s): 1.52 H EKG No qualifying data available. Assessment/Plan Orders: amLODIPine, Start: 08/06/22 18:15:00 EST, Dose = 5 mg, = 1 tab(s), Oral, qDay, 08/06/22 18:15:00 EST aspirin, Start: 08/06/22 18:15:00 EST, Dose = 325 mg, = 1 tab(s), Oral, qDay, 08/06/22 18:15:00 EST bumetanide, Start: 08/06/22 18:15:00 EST, Dose = 2 mg, = 8 mL, IV Push, TID, NOW, 08/06/22 18:15:00EST carvedilol, Start: 08/06/22 20:00:00 EST, Dose = 25 mg, = 1 tab(s), Oral, BID, 08/06/22 18:15:00 EST glipiZIDE, Start: 08/06/22 18:15:00 EST, Dose = 5 mg, = 1 tab(s), Oral, qAM, 0, 08/06/22 18:15:00 EST heparin, Start: 08/06/22 14:00:00 EST, Dose = 5,000 unit(s), = 1 mL, Subcutaneous, q8h, 08/06/22 13:04:00 EST hydrALAZINE, Start: 08/06/22 18:15:00 EST, Dose = 50 mg, = 1 tab(s), Oral, TID, 08/06/22 18:15:00 EST [employer] Diet Basic Metabolic Panel Blood Glucose Monitoring Bedside PRN Call Parameters Call Parameters Cardiac Rehab Phase 1 Code Status Consult to Physician CPAP as at home Echocardiogram Adult Follow Clinical Pathway Intake and Output IV Catheter Insertion/Care Magnesium Level Notify Provider Oxygen Administration Pulse Oximeter - Intermittent Titrate / Wean Oxygen Video on Demand Vital Signs Acute hypoxic hypercapnic respiratory failure Acute on chronic systolic and diastolic heart failure LVEF re 35-40% 11/2020 Probable PHTN (dilated pulmonary trunk, contrast reflux in IVC) Nonischemic cardiomyopathy Mild angiographic CAD 01/2021 History of pulmonary embolism Diabetes, hypertension, ANDRADE, ascending aortic aneurysm 5.[address] not interested in follow-up or surgery, obesity Scattered calcified lung, 1.2 cm granulomas irregular nodule consolidation CVC: AQ Mr. Muniz is a 67-year-old man with NICM, follows with Dr. Jin in clinic, he presents ER withacute decompensated heart failure of few days duration of unclear trigger. He is compliant with hismedications including bumetanide 2 mg p.o. 3 times daily, minimizes salt intake, no recent chest pain, palpitation, however endorses some lightheadedness. No evidence of A-fib in our available records. Plan: Diuresis with bumetanide 2 mg IV 3 times daily Continue GDMT, escalate as tolerated, not on ANA/ARB, possibly due to recurrent BRYANNA and potassium of 5, will monitor and potentially start tomorrow if creatinine improving, (baseline looks like 1.2) Obtain repeat TTE Appreciate pulm assitance in hypercapnia, continue blood gas driven use of BiPAP, CPAP at night Counseled patient extensively about genetic and radiologic testing of his ascending aortic aneurysm(he is brother of dissection age 27) he continues to adamantly decline testing and treatment for it, understanding that he has risk of sudden , his direct family members are aware of the condition and the familial component. CODE STATUS: DNR/DNI, except electrical shock and inotropes/vasoactive medicine. d/w Dr Verenice العراقي MD [employer] or Pager [phone] [1] History and Physical; ES العراقي MD 08/06/2022 13:03 EST Digitally Signed by ES العراقي MD on 08/07/2022 01:46 PM [id number] History and physical note Date of Service 08/06/2022 Chief Complaint pt presents with complaints of worsening SOB over the last couple days. pt has hx of COPD and wearsO2 at home. History of Present Illness Mr. Muniz is a 67-year-old man with NICM, follows with Dr. Jin in clinic, he presents ER withacute decompensated heart failure of few days duration of unclear trigger. He is compliant with hismedications including bumetanide 2 mg p.o. 3 times daily, minimizes salt intake, no recent chest pain, palpitation, however endorses some lightheadedness. No evidence of A-fib in our available records. Review of Systems Apart from mentioned in HPI, pertinent review of systems is otherwise negative. Physical Exam Vitals and Measurements T: 37 C (Oral) HR: 60(Monitored) RR: 23(Total) BP: 136/60 SpO2: 95% No qualifying data available. General Appearance: Comfortable, not in acute distress Cardiac: S1, S2, no murmurs, regular rhythm, normal rate, ++lower extremity edema, +crackles, + JVPdistention, warm extremities. Lungs: No wheezes, normal chest expansion. Abdomen: No tenderness, no distention, normal bowel sounds. Musculoskeletal: No signs of acute synovitis. Neurological: Alert and oriented x3, no focal neurological deficits grossly. Psychiatric: Appropriate, normal mood. Lab Results 08/06 09:46 WBC: 5.8 Hgb: 15.3 Hct: 48.9 Platelet: 229 Neutrophil %: 86.5 H Glucose Level: 315 H Sodium Level: 134 L Potassium Level: 5.0 BUN: 61.0 H Creatinine Lvl (s): 1.52 H EKG EC08/06/22: SINUS RHYTHM...normal P axis, V-rate 50- 99 LEFT BUNDLE BRANCH BLOCK...QRSd>120, broad/notched R Electronic Signature: MD MIKAELA FELDER MD 08/06/2022 09:59:49 Assessment/Plan Acute hypoxic hypercapnic respiratory failure Acute on chronic systolic and diastolic heart failure LVEF re 35-40% 11/2020 Probable PHTN (dilated pulmonary trunk, contrast reflux in IVC) Nonischemic cardiomyopathy Mild angiographic CAD 01/2021 History of pulmonary embolism Diabetes, hypertension, ANDRADE, ascending aortic aneurysm 5.[address] not interested in follow-up or surgery, obesity Scattered calcified lung, 1.2 cm granulomas irregular nodule consolidation CVC: AQ Mr. Muniz is a 67-year-old man with NICM, follows with Dr. Jin in clinic, he presents ER withacute decompensated heart failure of few days duration of unclear trigger. He is compliant with hismedications including bumetanide 2 mg p.o. 3 times daily, minimizes salt intake, no recent chest pain, palpitation, however endorses some lightheadedness. No evidence of A-fib in our available records. Plan: Diuresis with bumetanide 2 mg IV 3 times daily Continue GDMT, escalate as tolerated, not on ANA/ARB, possibly due to recurrent BRYANNA and potassium of 5, will monitor and potentially start tomorrow if creatinine improving creatinine 1.5, (baseline looks like 1.2) Obtain repeat TTE Counseled patient extensively about genetic and radiologic testing of his ascending aortic aneurysm(he is brother of dissection age 27) he continues to adamantly decline testing and treatment work, understanding that he has risk of sudden , his direct family members are aware of the condition and the familial component. CODE STATUS: DNR/DNI, except electrical shock and inotropes/vasoactive medicine. d/w Dr Verenice العراقي MD [employer] Agent [employer] or Pager [phone] Problem List/Past Medical History Ongoing BRYANNA (acute kidney injury) Ankle instability Aortic aneurysm Aortic valve disease Cardiomyopathy Cellulitis Diabetes mellitus type II Edema of lower extremity Family history of aortic dissection HTN - Hypertension Morbid obesity BMI - 50.76 Numbness and tingling in hands ANDRADE (obstructive sleep apnea) Osteoarthritis Pulmonary edema Historical No qualifying data Procedure/Surgical History Cardiac catheterization: 01/27/21 Echocardiogram: 01/22/21 Echocardiogram: 12/01/20 Fusion of joint of ankle: 06/03/16 Appendectomy Tonsillectomy [place] tooth Medications Home Medications (6) Active amLODIPine 5 mg oral tablet 5 mg = 1 tab(s), Oral, qDay aspirin 325 mg oral tablet 325 mg = 1 tab(s), Oral, Daily bumetanide 1 mg oral tablet 2 mg = 2 tab(s), Oral, BID carvedilol 25 mg oral tablet 25 mg = 1 tab(s), Oral, BIDM glipiZIDE 5 mg oral tablet 5 mg = 1 tab(s), Oral, qAM hydrALAZINE 50 mg oral tablet 50 mg = 1 tab(s), Oral, TID Allergies NKA Social History Smoking Status - 01/03/2017 Never smoker Alcohol - Denies Alcohol Use, 05/25/2018 Use: Never., 01/06/2021 Employment/School Status: Employed., 01/06/2021 Home/Environment Living situation: Home/Independent. Marital Status: ., 01/06/2021 Nutrition/Health Caffeine intake amount: No caffeine intake., 02/01/2021 Substance Abuse - Denies Substance Abuse, 05/25/2018 Use: Never., 01/06/2021 Tobacco - Denies Tobacco Use, 05/25/2018 Nicotine Use: Never (less than 100 in lifetime)., 01/06/2021 Family History Aortic root dissection: Brother. Cancer: Mother and Sister. Diabetes mellitus: Father, Sister and Brother. Heart disease: Mother. Heart disease: Sister. Immunizations No qualifying data available. Code Status Code Status - Ordered -- 08/06/22 11:44:00 EST, Full Code, Constant Order Digitally Signed by ES العراقي MD on 08/06/2022 06:21 PM Digitally Signed by ES العراقي MD on 08/06/2022 06:31 PM [id number] Cardiology Progress note Date of Service 08/16/2022 Subjective patient seen and examined at bedside. No acute overnight events. States his breathing is about the same as yesterday denies any chest pain Objective Vitals and Measurements T: 36.6 C (Oral) TMIN: 36.6 C (Oral) TMAX: 36.8 C (Oral) HR: 64(Monitored) RR: 18 BP: 133/58 SpO2: 91% WT: 170.7 kg Intake and Output 7AM Yesterday to 7AM Today Intake and Output (Last 24 hours) Intake Oral Intake 440.00 Output Urine Voided 600.00 Total Summary Total Intake 440.00 Total Output 600.00 Fluid Balance -160.00 Physical Exam GENERAL: Pt is comfortable in bed. PSYCH: Alert and oriented HEENT: Sclera clear, trachea midline NEURO: No focal neurologic deficits ENDO: Thyroid is non-palpable NECK: JVD diffuse crackles CVS: S1 & S2 audible, Regular Rate and Rhythm, No Murmurs LUNG: Adequate air entry. GI: + BS, Abdomen is Soft EXTREMITIES: Significant lower extremity pitting edema SKIN: Warm & Dry Weight Dosing Weight: 170.7 kg (08/08/22) Dosing Weight: 170.8 kg (08/06/22) Medications Medications (5) Active Scheduled: (5) aspirin 325 mg tablet 325 mg 1 tab(s), Oral, qDay carvedilol 25 mg tablet 25 mg 1 tab(s), Oral, BID heparin 5,000 units/mL (1 mL) vial 5,000 unit(s) 1 mL, Subcutaneous, q8h hydralazine 50 mg Tablet 50 mg 1 tab(s), Oral, TID isosorbide mononitrate 30 mg ER tablet 30 mg 1 tab(s), Oral, qDayAC Continuous: (0) PRN: (0) Lab Results 08/08 05:50 Glucose Level: 106 Sodium Level: 139 Potassium Level: 5.6 H BUN: 91.0 H Creatinine Lvl (s): 2.37 H 08/07 13:22 Glucose Level: 242 H Sodium Level: 133 L Potassium Level: 5.5 H BUN: 48.0 H Creatinine Lvl (s): 1.80 H 08/07 05:44 Glucose Level: 110 Sodium Level: 138 Potassium Level: 5.2 H BUN: 78.0 H Creatinine Lvl (s): 1.64 H EKG No qualifying data available. Assessment/Plan Acute hypoxic hypercapnic respiratory failure Acute on chronic systolic and diastolic heart failure LVEF re 35-40% 11/2020 Probable PHTN (dilated pulmonary trunk, contrast reflux in IVC) Nonischemic cardiomyopathy Mild angiographic CAD 01/2021 History of pulmonary embolism Diabetes, hypertension, ANDRADE, ascending aortic aneurysm 5.[address] not interested in follow-up or surgery, obesity Scattered calcified lung, 1.2 cm granulomas irregular nodule consolidation BRYANNA likely secondary to contrast exposure Hyperkalemia CVC: AQ Mr. Muniz is a 67-year-old man with NICM, follows with Dr. Jin in clinic, he presents ER withacute decompensated heart failure of few days duration of unclear trigger. He is compliant with hismedications including bumetanide 2 mg p.o. 3 times daily, minimizes salt intake, no recent chest pain, palpitation, however endorses some lightheadedness. No evidence of A-fib in our available records. Plan: BRYANNA and CKD with a creatinine of 2.37. Likely in the setting of recent contrast exposure from CTA chest. Nephrology has been consulted for BRYANNA and hyperkalemia. Lokelma was given this morning for hyperkalemia. We will give diuretic holiday although patient is hypervolemic on exam and resume tomorrow depending on kidney function. We will start patient on Imdur for afterload reduction and discontinu e amlodipine. If hypertensive will increase hydralazine 100 3 times daily. Hold off on RAAS inhibitor given BRYANNA and hyperkalemia. Continue monitor BMP. Need further GDMT optimization once hemodynamics and kidney function permits. Surface echo pending Pulmonary on board for hypercapnia, recs appreciated. Counseled patient extensively about genetic and radiologic testing of his ascending aortic aneurysm(he is brother of dissection age 27) he continues to adamantly decline testing and treatment for it, understanding that he has risk of sudden , his direct family members are aware of the condition and the familial component. Continue to monitor hemodynamics CODE STATUS: DNR/DNI, except electrical shock and inotropes/vasoactive medicine. Digitally Signed by ROLAND FOUNTAIN MD on 08/08/2022 02:17 PM [facility] [id number] Cardiology Progress note Date of Service 08/16/2022 Subjective patient seen and examined at bedside. No acute overnight events. States his breathing is about the same as yesterday denies any chest pain Objective Vitals and Measurements T: 36.6 C (Oral) TMIN: 36.6 C (Oral) TMAX: 36.8 C (Oral) HR: 64(Monitored) RR: 18 BP: 133/58 SpO2: 91% WT: 170.7 kg Intake and Output 7AM Yesterday to 7AM Today Intake and Output (Last 24 hours) Intake Oral Intake 440.00 Output Urine Voided 600.00 Total Summary Total Intake 440.00 Total Output 600.00 Fluid Balance -160.00 Physical Exam GENERAL: Pt is comfortable in bed. PSYCH: Alert and oriented HEENT: Sclera clear, trachea midline NEURO: No focal neurologic deficits ENDO: Thyroid is non-palpable NECK: JVD diffuse crackles CVS: S1 & S2 audible, Regular Rate and Rhythm, No Murmurs LUNG: Adequate air entry. GI: + BS, Abdomen is Soft EXTREMITIES: Significant lower extremity pitting edema SKIN: Warm & Dry Weight Dosing Weight: 170.7 kg (08/08/22) Dosing Weight: 170.8 kg (08/06/22) Medications Medications (5) Active Scheduled: (5) aspirin 325 mg tablet 325 mg 1 tab(s), Oral, qDay carvedilol 25 mg tablet 25 mg 1 tab(s), Oral, BID heparin 5,000 units/mL (1 mL) vial 5,000 unit(s) 1 mL, Subcutaneous, q8h hydralazine 50 mg Tablet 50 mg 1 tab(s), Oral, TID isosorbide mononitrate 30 mg ER tablet 30 mg 1 tab(s), Oral, qDayAC Continuous: (0) PRN: (0) Lab Results 08/08 05:50 Glucose Level: 106 Sodium Level: 139 Potassium Level: 5.6 H BUN: 91.0 H Creatinine Lvl (s): 2.37 H 08/07 13:22 Glucose Level: 242 H Sodium Level: 133 L Potassium Level: 5.5 H BUN: 48.0 H Creatinine Lvl (s): 1.80 H 08/07 05:44 Glucose Level: 110 Sodium Level: 138 Potassium Level: 5.2 H BUN: 78.0 H Creatinine Lvl (s): 1.64 H EKG No qualifying data available. Assessment/Plan Acute hypoxic hypercapnic respiratory failure Acute on chronic systolic and diastolic heart failure LVEF re 35-40% 11/2020 Probable PHTN (dilated pulmonary trunk, contrast reflux in IVC) Nonischemic cardiomyopathy Mild angiographic CAD 01/2021 History of pulmonary embolism Diabetes, hypertension, ANDRADE, ascending aortic aneurysm 5.[address] not interested in follow-up or surgery, obesity Scattered calcified lung, 1.2 cm granulomas irregular nodule consolidation BRYANNA likely secondary to contrast exposure Hyperkalemia CVC: AQ Mr. Muniz is a 67-year-old man with NICM, follows with Dr. Jin in clinic, he presents ER withacute decompensated heart failure of few days duration of unclear trigger. He is compliant with hismedications including bumetanide 2 mg p.o. 3 times daily, minimizes salt intake, no recent chest pain, palpitation, however endorses some lightheadedness. No evidence of A-fib in our available records. Plan: BRYANNA and CKD with a creatinine of 2.37. Likely in the setting of recent contrast exposure from CTA chest. Nephrology has been consulted for BRYANNA and hyperkalemia. Lokelma was given this morning for hyperkalemia. We will give diuretic holiday although patient is hypervolemic on exam and resume tomorrow depending on kidney function. We will start patient on Imdur for afterload reduction and discontinu e amlodipine. If hypertensive will increase hydralazine 100 3 times daily. Hold off on RAAS inhibitor given BRYANNA and hyperkalemia. Continue monitor BMP. Need further GDMT optimization once hemodynamics and kidney function permits. Surface echo pending Pulmonary on board for hypercapnia, recs appreciated. Counseled patient extensively about genetic and radiologic testing of his ascending aortic aneurysm(he is brother of dissection age 27) he continues to adamantly decline testing and treatment for it, understanding that he has risk of sudden , his direct family members are aware of the condition and the familial component. Continue to monitor hemodynamics CODE STATUS: DNR/DNI, except electrical shock and inotropes/vasoactive medicine. Digitally Signed by ROLAND FOUNTAIN MD on 08/08/2022 02:17 PM [facility] [id number] Pulmonary Progress note Date of Service 08/08/2022 Subjective Patient feels breathing is improved. Continues to feel short of breath when he lies flat but if he sits upright does not have shortness of breath. Denies any productive cough. Remains on his home requirement of 5 to 6 L nasal cannula saturating 90s. Objective Vitals and Measurements T: 36.6 C (Oral) TMIN: 36.6 C (Oral) TMAX: 36.8 C (Oral) HR: 64(Monitored) RR: 18 BP: 133/58 SpO2: 91% WT: 170.7 kg Intake and Output 7AM Yesterday to 7AM Today Intake and Output (Last 24 hours) Intake Oral Intake 440.00 Output Urine Voided 600.00 Total Summary Total Intake 440.00 Total Output 600.00 Fluid Balance -160.00 Physical Exam General: AAOx3, no distress Oral cavity: Moist Oral Mucosa Neck: No mass CVS: RRR, No murmur, Normal S1S2, bilateral LL edema Respiratory: Equal bilateral breath sounds, no wheezing, bilateral crackles, no accessory muscle use Abdomen: Non-tender, no guarding, no rigidity Ext: Warm to touch Neuro: No focal deficits, no asterixis Weight Dosing Weight: 170.7 kg (08/08/22) Dosing Weight: 170.8 kg (08/06/22) Medications Medications (5) Active Scheduled: (5) aspirin 325 mg tablet 325 mg 1 tab(s), Oral, qDay carvedilol 25 mg tablet 25 mg 1 tab(s), Oral, BID heparin 5,000 units/mL (1 mL) vial 5,000 unit(s) 1 mL, Subcutaneous, q8h hydralazine 50 mg Tablet 50 mg 1 tab(s), Oral, TID isosorbide mononitrate 30 mg ER tablet 30 mg 1 tab(s), Oral, qDayAC Continuous: (0) PRN: (0) Lab Results 08/08 05:50 Glucose Level: 106 Sodium Level: 139 Potassium Level: 5.6 H BUN: 91.0 H Creatinine Lvl (s): 2.37 H 08/07 13:22 Glucose Level: 242 H Sodium Level: 133 L Potassium Level: 5.5 H BUN: 48.0 H Creatinine Lvl (s): 1.80 H 08/07 05:44 Glucose Level: 110 Sodium Level: 138 Potassium Level: 5.2 H BUN: 78.0 H Creatinine Lvl (s): 1.64 H EKG No qualifying data available. Assessment/Plan SOB - Shortness of breath 1. Acute on chronic hypercapnic respiratory failure and acute hypoxic respiratory failure 2. Heart failure exacerbation 3. ANDRADE/OHS on AVAPS at home with 5 L bleeding at night Plan Acute on chronic hypercapnia likely secondary to heart failure exacerbation. Patient currently not in any respiratory distress normal mentation and no asterixis on exam. Recommend to continue diuresis by cardiology and recheck ABG after adequate period of diuresis Continue home AVAPS unit at night with oxygen bled in Wean FiO2 to [place] saturation more than 90% Abnormal opacities on CT scan likely due to volume overload and atelectasis. He does not have any infectious symptoms. He will need a repeat CT scan as outpatient in 2 to 3 months to follow-up for resolution Digitally Signed by ADARSH FOSTER MD on 08/08/2022 02:10 PM [facility] [id number] Nephrology Consult note Date of Service 08/08/2022 Reason for Consultation Acute renal failure on CKD stage III, patient known to me. Referring Physician Dr. Fountain, chrome plater. History of Present Illness Mr. Muniz is a pleasant 67-year-old gentleman with multiple medical problems including hypertension, diabetes, CHF with reduced EF, chronic respiratory failure, ANDRADE, osteoarthritis, CKD stage III who is known to me from previous hospitalization. Patient also was seen in my office once 2020. Patient presented to the ER on 08/06/2022 with the complaints of shortness of breath which has been worsening for few days. Patient follows with heart failure clinic with Dr. Jin. Patient was on Bumex 2 mg p.o. twice daily at home. Patient states that his shortness of breath continued to worsen and he put on some weight as well. He is unable to tell me how much weight daily gain. He also co mplains of worsening leg edema. He was evaluated in the ER and there was concern for pulmonary embolism. He underwent CT angiogram. Work-up showed acute on chronic CHF exacerbation and he was startedon IV Bumex 3 times a day. On admission his creatinine was 1.5 with BUN of 61, his baseline. Over last couple of days his creatinine has slowly worsened, it has reached 2.37 as of today and BUN is 91. He also has mild hyperkalemia with potassium of 5.6. Renal consultation was requested for acute renal failure on CKD stage III, hyperkalemia, patient known to me. Review of Systems A detailed 10 point review of systems was obtained including constitutional, HEENT, respiratory, cardiovascular, gastrointestinal, genitourinary, musculoskeletal, skin, neurological, psychological, endocrine and hematological. Most of the review of systems is as stated in the history of present illness. At present patient is sitting in chair. He does complain of shortness of breath. But his shortness of breath is significantly improved than what he came in with. He denies any chest pain, nausea, vomiting, abdominal pain, diarrhea. He denies any dysuria or decreased urine output. He denies anychronic NSAID use. He did have CT with IV contrast on admission on 08/06/2022. He was started on diur etics Bumex 2 mg IV 3 times daily for acute on chronic CHF exacerbation. His diuretics were discontinued as of this morning. His home medications included Bumex, hydralazine, carvedilol and glipizide. He was not on any ANA inhibitor/ARB. He denies any history of nephrolithiasis. Does have stage IIICKD and was seen by me in office in 2020. Review of all other systems is negative. Physical Exam Vitals and Measurements T: 36.6 C (Oral) TMIN: 36.6 C (Oral) TMAX: 36.8 C (Oral) HR: 64(Monitored) RR: 18 BP: 133/58 SpO2: 91% WT: 170.7 kg Weight Dosing Weight: 170.7 kg (08/08/22) Dosing Weight: 170.8 kg (08/06/22) Urine output more than 1000 mL over 24 hours. HEENT: PERRLA, no pallor Neck: JVD cannot be appreciated Respiratory: Bilateral air entry is present, decreased at bases Cardiovascular: S1-S2 present, no rub Abdomen: Morbidly obese, soft, NT, BS present Genitourinary: Bladder fullness not appreciated Extremities: Bilateral 2+ pedal edema present, PP present Neurological: Awake and responds to verbal commands no asterixis Psychological: Alert oriented x3 Musculoskeletal: No joint swelling, tenderness, redness Skin: Chronic lower extremity skin changes noted Lab Results 08/08 05:50 Glucose Level: 106 Sodium Level: 139 Potassium Level: 5.6 H BUN: 91.0 H Creatinine Lvl (s): 2.37 H CO2: 38 Calcium: 8.6 Magnesium: 2.6 Most recent VBG showed pH of 7.22, PCO2 95, PO2 102, bicarb 38.8 08/07 13:22 Glucose Level: 242 H Sodium Level: 133 L Potassium Level: 5.5 H BUN: 48.0 H Creatinine Lvl (s): 1.80 H 08/07 05:44 Glucose Level: 110 Sodium Level: 138 Potassium Level: 5.2 H BUN: 78.0 H Creatinine Lvl (s): 1.64 H Imaging Results and Diagnostics CT angiogram on admission: IMPRESSION: No evidence of pulmonary embolism. Nodular consolidation in the right upper lobe. A CT thorax in 6-8 weeks is recommended to ensure resolution. Small right and trace left pleural effusions with associated compressive atelectasis/consolidation. Superimposed infection is additional consideration. Attention on follow-up. Stable ascending aortic aneurysm. Dilated main pulmonary artery can be seen with pulmonary hypertension. Assessment/Plan 1. Non-oliguric BRYANNA on stage III CKD: BRYANNA due to combination of CTA with contrast and diuretics on board 2. Hyperkalemia: Due to BRYANNA and high dietary potassium intake 3. Acute on chronic CHF exacerbation with reduced EF: Was on diuretics, diuretics has been held as of this morning 4. Acute on chronic respiratory failure 5. Hypertension: BP acceptable 6. Diabetes 7. Morbid obesity 8. Pulmonary hypertension: Likely secondary Patient received a dose of Lokelma today, agree with that. Change diet to low potassium diet. Agreewith holding diuretics. Monitor urine output. Avoid NSAIDs and nephrotoxins like IV contrast. No need for dialysis. Labs in AM. Check urine analysis. Patient says that he wants to go home. Explained him about his worsening renal function and that he needs to stay in hospital till renal function starts to improve. He understands. Discussed with patient at length about the possible reason for his BRYANNA. Will closely follow the patient while he is in the hospital. Thank you very much for your consultation and allowing me to participate in Mr. Muniz's care. Problem List/Past Medical History Hypertension Diabetes CHF with reduced EF Pulmonary hypertension Morbid obesity ANDRADE Chronic respiratory failure Stage III CKD with baseline creatinine around 1.5 Cardiomyopathy Aortic aneurysm Osteoarthritis Previous history of BRYANNA, did not require dialysis Procedure/Surgical History Cardiac catheterization Ankle joint fusion Appendectomy Tonsillectomy [place] tooth removal Medications Inpatient amLODIPine, 5 mg= 1 tab(s), Oral, qDay aspirin 325 mg oral tablet, 325 mg= 1 tab(s), Oral, qDay carvedilol 25 mg oral tablet, 25 mg= 1 tab(s), Oral, BID heparin 5000 units/mL injection, 5000 unit(s)= 1 mL, Subcutaneous, q8h hydrALAZINE, 50 mg= 1 tab(s), Oral, TID Home amLODIPine 5 mg oral tablet, 5 mg= 1 tab(s), Oral, qDay aspirin 325 mg oral tablet, 325 mg= 1 tab(s), Oral, qDay bumetanide 1 mg oral tablet, 2 mg= 2 tab(s), Oral, TID carvedilol 25 mg oral tablet, 25 mg= 1 tab(s), Oral, BID glipiZIDE 5 mg oral tablet, 5 mg= 1 tab(s), Oral, qAM hydrALAZINE 50 mg oral tablet, 50 mg= 1 tab(s), Oral, TID Allergies NKA Social History Smoking Status - 01/03/2017 Never smoker Alcohol - Denies Alcohol Use, 05/25/2018 Use: Never., 01/06/2021 Employment/School Status: Employed., 01/06/2021 Home/Environment Living situation: Home/Independent. Marital Status: ., 01/06/2021 Nutrition/Health Caffeine intake amount: No caffeine intake., 02/01/2021 Substance Abuse - Denies Substance Abuse, 05/25/2018 Use: Never., 01/06/2021 Tobacco - Denies Tobacco Use, 05/25/2018 Nicotine Use: Never (less than 100 in lifetime)., 01/06/2021 Family History Aortic root dissection: Brother. Cancer: Mother and Sister. Diabetes mellitus: Father, Sister and Brother. Heart disease: Mother. Heart disease: Sister. Immunizations No qualifying data available. Digitally Signed by JEREMIE GRIMM MD on 08/08/2022 12:54 PM [id number] Pulmonary Consult note Date of Service 08/07/2022 Reason for Consultation Hypercapnic respiratory failure Referring Physician Dr. Benitez History of Present Illness Negative 67-year-old male with past medical history of heart failure reduced EF 35%, CAD, pulmonaryembolism, diabetes, hypertension, ANDRADE, ascending aortic aneurysm and for a few days of worsening shortness of breath found to be in heart failure exacerbation/admitted to the CCU for diuresis.-Worsening shortness of breath for the last few days. Denies any productive cough, fever, chills. Compliantwith a CPAP at home no history of asthma or COPD. Patient normally only does 5 L oxygen bleed in atnight when sleeping no oxygen during the day. Last few days has been increasing to 5 L nasal cannula. Currently sitting in chair comfortably not in any respiratory distress speaking in full sentencesalert and oriented. He is on 6 L nasal cannula saturating low 90s Review of Systems Negative set HPI Physical Exam Vitals and Measurements T: 36.5 C (Oral) TMIN: 36.5 C (Oral) TMAX: 36.8 C (Oral) HR: 65(Monitored) RR: 22 BP: 130/67 SpO2: 90% HT: 177.8 cm WT: 170.8 kg BMI: 54.03 Weight Dosing Weight: 170.8 kg (08/06/22) General: AAOx3, no distress Oral cavity: Moist Oral Mucosa Neck: No mass CVS: RRR, No murmur, Normal S1S2, bilateral LL edema Respiratory: Equal bilateral breath sounds, no wheezing, bilateral crackles, no accessory muscle use Abdomen: Non-tender, no guarding, no rigidity Ext: Warm to touch Neuro: No focal deficits, no asterixis Lab Results 08/07 05:44 Glucose Level: 110 Sodium Level: 138 Potassium Level: 5.2 H BUN: 78.0 H Creatinine Lvl (s): 1.64 H 08/06 09:46 WBC: 5.8 Hgb: 15.3 Hct: 48.9 Platelet: 229 Neutrophil %: 86.5 H Glucose Level: 315 H Sodium Level: 134 L Potassium Level: 5.0 BUN: 61.0 H Creatinine Lvl (s): 1.52 H Assessment/Plan 1. Acute on chronic hypercapnic respiratory failure and acute hypoxic respiratory failure 2. Heart failure exacerbation 3. ANDRADE/OHS on AVAPS at home with 5 L bleeding at night Plan Acute on chronic hypercapnia likely secondary to heart failure exacerbation. Patient currently not in any respiratory distress normal mentation and no asterixis on exam. Recommend to continue diuresis by cardiology and recheck ABG after adequate period of diuresis Patient did not sleep well with BiPAP settings of 16/5 overnight. Discussed with respiratory we will place him on his home AVAPS unit at night with oxygen bled in Wean FiO2 to [place] saturation more than 90% Abnormal opacities on CT scan likely due to volume overload and atelectasis. He does not have any infectious symptoms. He will need a repeat CT scan as outpatient in 2 to 3 months to follow-up for resolution Problem List/Past Medical History Ongoing BRYANNA (acute kidney injury) Ankle instability Aortic aneurysm Aortic valve disease Cardiomyopathy Cellulitis Diabetes mellitus type II Edema of lower extremity Family history of aortic dissection HTN - Hypertension Morbid obesity BMI - 50.76 Numbness and tingling in hands ANDRADE (obstructive sleep apnea) Osteoarthritis Pulmonary edema Historical No qualifying data Procedure/Surgical History Cardiac catheterization: 01/27/21 Echocardiogram: 01/22/21 Echocardiogram: 12/01/20 Fusion of joint of ankle: 06/03/16 Appendectomy Tonsillectomy [place] tooth Medications Inpatient amLODIPine, 5 mg= 1 tab(s), Oral, qDay aspirin 325 mg oral tablet, 325 mg= 1 tab(s), Oral, qDay bumetanide, 2 mg= 8 mL, IV Push, TID carvedilol 25 mg oral tablet, 25 mg= 1 tab(s), Oral, BID glipiZIDE 5 mg oral tablet, 5 mg= 1 tab(s), Oral, qAM heparin 5000 units/mL injection, 5000 unit(s)= 1 mL, Subcutaneous, q8h hydrALAZINE, 50 mg= 1 tab(s), Oral, TID Home amLODIPine 5 mg oral tablet, 5 mg= 1 tab(s), Oral, qDay aspirin 325 mg oral tablet, 325 mg= 1 tab(s), Oral, qDay bumetanide 1 mg oral tablet, 2 mg= 2 tab(s), Oral, TID carvedilol 25 mg oral tablet, 25 mg= 1 tab(s), Oral, BID glipiZIDE 5 mg oral tablet, 5 mg= 1 tab(s), Oral, qAM hydrALAZINE 50 mg oral tablet, 50 mg= 1 tab(s), Oral, TID Allergies NKA Social History Smoking Status - 01/03/2017 Never smoker Alcohol - Denies Alcohol Use, 05/25/2018 Use: Never., 01/06/2021 Employment/School Status: Employed., 01/06/2021 Home/Environment Living situation: Home/Independent. Marital Status: ., 01/06/2021 Nutrition/Health Caffeine intake amount: No caffeine intake., 02/01/2021 Substance Abuse - Denies Substance Abuse, 05/25/2018 Use: Never., 01/06/2021 Tobacco - Denies Tobacco Use, 05/25/2018 Nicotine Use: Never (less than 100 in lifetime)., 01/06/2021 Family History Aortic root dissection: Brother. Cancer: Mother and Sister. Diabetes mellitus: Father, Sister and Brother. Heart disease: Mother. Heart disease: Sister. Immunizations No qualifying data available. Digitally Signed by ADARSH FOSTER MD on 08/07/2022 12:31 PM [facility] [id number] Cardiology Progress note Chief Complaint ADHF Objective Vitals and Measurements T: 36.6 C (Oral) TMIN: 36.6 C (Oral) TMAX: 36.8 C (Oral) HR: 68(Monitored) RR: 20 BP: 137/63 SpO2: 90% HT: 177.8 cm WT: 170.8 kg BMI: 54.03 Intake and Output 7AM Yesterday to 7AM Today Intake and Output (Last 24 hours) Intake Oral Intake 682.00 Output Urine Voided 1325.00 Total Summary Total Intake 682.00 Total Output 1325.00 Fluid Balance -643.00 Physical Exam General Appearance: Comfortable, not in acute distress Cardiac: S1, S2, no murmurs, regular rhythm, normal rate, ++lower extremity edema, +crackles, + JVPdistention, warm extremities. Lungs: No wheezes, normal chest expansion. Abdomen: No tenderness, no distention, normal bowel sounds. Musculoskeletal: No signs of acute synovitis. Neurological: Alert and oriented x3, no focal neurological deficits grossly. Psychiatric: Appropriate, normal mood. [1] Weight Dosing Weight: 170.8 kg (08/06/22) Medications Medications (7) Active Scheduled: (7) amLODIPine 5 mg tablet 5 mg 1 tab(s), Oral, qDay aspirin 325 mg tablet 325 mg 1 tab(s), Oral, qDay bumetanide 0.25 mg/1 mL 4 mL VIAL 2 mg 8 mL, IV Push, TID carvedilol 25 mg tablet 25 mg 1 tab(s), Oral, BID glipizide 5 mg ER tablet 5 mg 1 tab(s), Oral, qAM heparin 5,000 units/mL (1 mL) vial 5,000 unit(s) 1 mL, Subcutaneous, q8h hydralazine 50 mg Tablet 50 mg 1 tab(s), Oral, TID Continuous: (0) PRN: (0) Lab Results 08/07 05:44 Glucose Level: 110 Sodium Level: 138 Potassium Level: 5.2 H BUN: 78.0 H Creatinine Lvl (s): 1.64 H 08/06 09:46 WBC: 5.8 Hgb: 15.3 Hct: 48.9 Platelet: 229 Neutrophil %: 86.5 H Glucose Level: 315 H Sodium Level: 134 L Potassium Level: 5.0 BUN: 61.0 H Creatinine Lvl (s): 1.52 H EKG No qualifying data available. Assessment/Plan Orders: amLODIPine, Start: 08/06/22 18:15:00 EST, Dose = 5 mg, = 1 tab(s), Oral, qDay, 08/06/22 18:15:00 EST aspirin, Start: 08/06/22 18:15:00 EST, Dose = 325 mg, = 1 tab(s), Oral, qDay, 08/06/22 18:15:00 EST bumetanide, Start: 08/06/22 18:15:00 EST, Dose = 2 mg, = 8 mL, IV Push, TID, NOW, 08/06/22 18:15:00EST carvedilol, Start: 08/06/22 20:00:00 EST, Dose = 25 mg, = 1 tab(s), Oral, BID, 08/06/22 18:15:00 EST glipiZIDE, Start: 08/06/22 18:15:00 EST, Dose = 5 mg, = 1 tab(s), Oral, qAM, 0, 08/06/22 18:15:00 EST heparin, Start: 08/06/22 14:00:00 EST, Dose = 5,000 unit(s), = 1 mL, Subcutaneous, q8h, 08/06/22 13:04:00 EST hydrALAZINE, Start: 08/06/22 18:15:00 EST, Dose = 50 mg, = 1 tab(s), Oral, TID, 08/06/22 18:15:00 EST [employer] Diet Basic Metabolic Panel Blood Glucose Monitoring Bedside PRN Call Parameters Call Parameters Cardiac Rehab Phase 1 Code Status Consult to Physician CPAP as at home Echocardiogram Adult Follow Clinical Pathway Intake and Output IV Catheter Insertion/Care Magnesium Level Notify Provider Oxygen Administration Pulse Oximeter - Intermittent Titrate / Wean Oxygen Video on Demand Vital Signs Acute hypoxic hypercapnic respiratory failure Acute on chronic systolic and diastolic heart failure LVEF re 35-40% 11/2020 Probable PHTN (dilated pulmonary trunk, contrast reflux in IVC) Nonischemic cardiomyopathy Mild angiographic CAD 01/2021 History of pulmonary embolism Diabetes, hypertension, ANDRADE, ascending aortic aneurysm 5.[address] not interested in follow-up or surgery, obesity Scattered calcified lung, 1.2 cm granulomas irregular nodule consolidation CVC: AQ Mr. Muniz is a 67-year-old man with NICM, follows with Dr. Jin in clinic, he presents ER withacute decompensated heart failure of few days duration of unclear trigger. He is compliant with hismedications including bumetanide 2 mg p.o. 3 times daily, minimizes salt intake, no recent chest pain, palpitation, however endorses some lightheadedness. No evidence of A-fib in our available records. Plan: Diuresis with bumetanide 2 mg IV 3 times daily Continue GDMT, escalate as tolerated, not on ANA/ARB, possibly due to recurrent BRYANNA and potassium of 5, will monitor and potentially start tomorrow if creatinine improving, (baseline looks like 1.2) Obtain repeat TTE Appreciate pulm assitance in hypercapnia, continue blood gas driven use of BiPAP, CPAP at night Counseled patient extensively about genetic and radiologic testing of his ascending aortic aneurysm(he is brother of dissection age 27) he continues to adamantly decline testing and treatment for it, understanding that he has risk of sudden , his direct family members are aware of the condition and the familial component. CODE STATUS: DNR/DNI, except electrical shock and inotropes/vasoactive medicine. d/w Dr Verenice العراقي MD [employer] or Pager [phone] [1] History and Physical; ES العراقي MD 08/06/2022 13:03 EST Digitally Signed by ES العراقي MD on 08/07/2022 01:46 PM [facility] [id number] Evaluation + Plan noteExtracted from: Title:History and Physical Author:PRIYA العراقي MD Date:08/06/22 Acute hypoxic hypercapnic re spiratory failure Acute on chronic systolic and diastolic heart failure LVEF re 35-40% 11/2020 Probable PHTN (dilated pulmonary trunk, contrast reflux in IVC) Nonischemic cardiomyopathy Mild angiographic CAD 01/2021 History of pulmonary embolism Diabetes, hypertension, ANDRADE, ascending aortic aneurysm 5.[address] not interested in follow-up or surgery, obesity Scattered calcified lung, 1.2 cm granulomas irregular nodule consolidation CVC: AQ Mr. Muniz is a 67-year-old man with NICM, follows with Dr. Jin in clinic, he presents ER with acute decompensated heart failure of few days duration of unclear trigger. He is compliant with his medications including bumetanide 2 mg p.o. 3 times daily, minimizes salt intake, no recent chest pain, palpitation, however endorses some lightheadedness. No evidence of A-fib in our available records. Plan: Diuresis with bumetanide 2 mg IV 3 times daily Continue GDMT, escalate as tolerated, not on ANA/ARB, possibly due to recurrent BRYANNA and potassium of 5, will monitor and potentially start tomorrow if creatinine improving creatinine 1.5, (baseline looks like 1.2) Obtain repeat TTE Counseled patient extensively about genetic and radiologic testing of his ascending aortic aneurysm (he is brother of dissection age 27) he continues to adamantly decline testing and treatment work, understanding that he has risk of sudden , his direct family members are aware of the condition and the familial component. CODE STATUS: DNR/DNI, except electrical shock and inotropes/vasoactive medicine. d/w Dr Verenice العراقي MD [employer] or Pager [phone] Addendum by MIKE BENITEZ MD on August 08, 2022 22:15:26 EST I have personally seen, examined, and evaluated the patient on the encounter date. I have reviewed the fellow s documentation and agree with the fellow s findings and plan as documented, unless otherwise stated. Future Scheduled Tests Laboratory* Basic Metabolic Panel 12/27/21 * Complete Blood Count 12/27/21 Radiology* CT Angiography Chest w/ Contrast 12/07/21 [facility] 02-18-2023 History and physical note Date of Service 08/06/2022 Chief Complaint pt presents with complaints of worsening SOB over the last couple days. pt has hx of COPD and wearsO2 at home. History of Present Illness Mr. Muniz is a 67-year-old man with NICM, follows with Dr. Jin in clinic, he presents ER withacute decompensated heart failure of few days duration of unclear trigger. He is compliant with hismedications including bumetanide 2 mg p.o. 3 times daily, minimizes salt intake, no recent chest pain, palpitation, however endorses some lightheadedness. No evidence of A-fib in our available records. Review of Systems Apart from mentioned in HPI, pertinent review of systems is otherwise negative. Physical Exam Vitals and Measurements T: 37 C (Oral) HR: 60(Monitored) RR: 23(Total) BP: 136/60 SpO2: 95% No qualifying data available. General Appearance: Comfortable, not in acute distress Cardiac: S1, S2, no murmurs, regular rhythm, normal rate, ++lower extremity edema, +crackles, + JVPdistention, warm extremities. Lungs: No wheezes, normal chest expansion. Abdomen: No tenderness, no distention, normal bowel sounds. Musculoskeletal: No signs of acute synovitis. Neurological: Alert and oriented x3, no focal neurological deficits grossly. Psychiatric: Appropriate, normal mood. Lab Results 08/06 09:46 WBC: 5.8 Hgb: 15.3 Hct: 48.9 Platelet: 229 Neutrophil %: 86.5 H Glucose Level: 315 H Sodium Level: 134 L Potassium Level: 5.0 BUN: 61.0 H Creatinine Lvl (s): 1.52 H EKG EC08/06/22: SINUS RHYTHM...normal P axis, V-rate 50- 99 LEFT BUNDLE BRANCH BLOCK...QRSd>120, broad/notched R Electronic Signature: MD MIKAELA FELDER MD 08/06/2022 09:59:49 Assessment/Plan Acute hypoxic hypercapnic respiratory failure Acute on chronic systolic and diastolic heart failure LVEF re 35-40% 11/2020 Probable PHTN (dilated pulmonary trunk, contrast reflux in IVC) Nonischemic cardiomyopathy Mild angiographic CAD 01/2021 History of pulmonary embolism Diabetes, hypertension, ANDRADE, ascending aortic aneurysm 5.[address] not interested in follow-up or surgery, obesity Scattered calcified lung, 1.2 cm granulomas irregular nodule consolidation CVC: AQ Mr. Muniz is a 67-year-old man with NICM, follows with Dr. Jin in clinic, he presents ER withacute decompensated heart failure of few days duration of unclear trigger. He is compliant with hismedications including bumetanide 2 mg p.o. 3 times daily, minimizes salt intake, no recent chest pain, palpitation, however endorses some lightheadedness. No evidence of A-fib in our available records. Plan: Diuresis with bumetanide 2 mg IV 3 times daily Continue GDMT, escalate as tolerated, not on ANA/ARB, possibly due to recurrent BRYANNA and potassium of 5, will monitor and potentially start tomorrow if creatinine improving creatinine 1.5, (baseline looks like 1.2) Obtain repeat TTE Counseled patient extensively about genetic and radiologic testing of his ascending aortic aneurysm(he is brother of dissection age 27) he continues to adamantly decline testing and treatment work, understanding that he has risk of sudden , his direct family members are aware of the condition and the familial component. CODE STATUS: DNR/DNI, except electrical shock and inotropes/vasoactive medicine. d/w Dr Verenice العراقي MD [employer] or Pager [phone] Problem List/Past Medical History Ongoing BRYANNA (acute kidney injury) Ankle instability Aortic aneurysm Aortic valve disease Cardiomyopathy Cellulitis Diabetes mellitus type II Edema of lower extremity Family history of aortic dissection HTN - Hypertension Morbid obesity BMI - 50.76 Numbness and tingling in hands ANDRADE (obstructive sleep apnea) Osteoarthritis Pulmonary edema Historical No qualifying data Procedure/Surgical History Cardiac catheterization: 01/27/21 Echocardiogram: 01/22/21 Echocardiogram: 12/01/20 Fusion of joint of ankle: 06/03/16 Appendectomy Tonsillectomy [place] tooth Medications Home Medications (6) Active amLODIPine 5 mg oral tablet 5 mg = 1 tab(s), Oral, qDay aspirin 325 mg oral tablet 325 mg = 1 tab(s), Oral, Daily bumetanide 1 mg oral tablet 2 mg = 2 tab(s), Oral, BID carvedilol 25 mg oral tablet 25 mg = 1 tab(s), Oral, BIDM glipiZIDE 5 mg oral tablet 5 mg = 1 tab(s), Oral, qAM hydrALAZINE 50 mg oral tablet 50 mg = 1 tab(s), Oral, TID Allergies NKA Social History Smoking Status - 01/03/2017 Never smoker Alcohol - Denies Alcohol Use, 05/25/2018 Use: Never., 01/06/2021 Employment/School Status: Employed., 01/06/2021 Home/Environment Living situation: Home/Independent. Marital Status: ., 01/06/2021 Nutrition/Health Caffeine intake amount: No caffeine intake., 02/01/2021 Substance Abuse - Denies Substance Abuse, 05/25/2018 Use: Never., 01/06/2021 Tobacco - Denies Tobacco Use, 05/25/2018 Nicotine Use: Never (less than 100 in lifetime)., 01/06/2021 Family History Aortic root dissection: Brother. Cancer: Mother and Sister. Diabetes mellitus: Father, Sister and Brother. Heart disease: Mother. Heart disease: Sister. Immunizations No qualifying data available. Code Status Code Status - Ordered -- 08/06/22 11:44:00 EST, Full Code, Constant Order Digitally Signed by ES العراقي MD on 08/06/2022 06:21 PM Digitally Signed by ES العراقي MD on 08/06/2022 06:31 PM [facility] [id number] Note ORIGINAL EXAMINATION: CTA OF THE CHEST 08/06/2022 11:30 am TECHNIQUE: CTA of the chest was performed after the administration of intravenous contrast. Multiplanar reformatted images are provided for review. MIP images are provided for review. Automated exposure control, iterative reconstruction, and/or weight based adjustment of the mA/kV was utilized to reduce the radiation dose to as low as reasonably achievable. COMPARISON: 01/26/2021. HISTORY: ORDERING SYSTEM PROVIDED HISTORY: Reason for Exam: sob / pt on bipap chest pain; suspect PE FINDINGS: Pulmonary Arteries: Pulmonary arteries are adequately opacified for evaluation. No central, lobar, segmental, or subsegmental embolism given respiratory motion and bibasilar atelectasis/consolidation. Main pulmonary artery is normal in caliber. Mediastinum: No evidence of mediastinal lymphadenopathy. Cardiomegaly. Suspect left ventricle dilatation. There is pericardial thickening versus a small amount of pericardial fluid. Normal rightward IV septal bowing. Aortic and, to a lesser extent, mitral annulus calcifications. Coronary artery calcifications. Dilated main pulmonary artery at 3.8 cm. The ascending aorta measures 5.1 cm, stable. Lungs/pleura: Small right and trace left pleural effusions with associated compressive atelectasis/consolidation. No pneumothorax. Scattered calcified granulomas. There is irregular nodular consolidation in the right upper lobe measuring 1.2 cm on series 2, image 143. There is a 4 mm nodule in the right middle lobe on series 2, image 117. Upper Abdomen: Contrast reflux into the IVC. Otherwise limited images of the upper abdomen are unremarkable. Soft Tissues/Bones: Left gynecomastia. No acute bone or soft tissue abnormality. IMPRESSION: No evidence of pulmonary embolism. Nodular consolidation in the right upper lobe. A CT thorax in 6-8 weeks is recommended to ensure resolution. Small right and trace left pleural effusions with associated compressive atelectasis/consolidation. Superimposed infection is additional consideration. Attention on follow-up. Stable ascending aortic aneurysm. Dilated main pulmonary artery can be seen with pulmonary hypertension. I have personally reviewed the images of this examination and edited the resident's findings and interpretation. RECOMMENDATIONS: Unavailable Interpreted by: Ángel Heard Preliminary Report By: Geoffrey Easton Electronically signed By Ángel Heard Dictated Date: 08/06/2022 11:43:59 AM Prelim Date: 08/06/2022 11:59:04 AM Sign Date: 08/06/2022 12:29:16 PM Ordering Provider: [facility]02-18-2023 Note ORIGINAL EXAMINATION: CTA OF THE CHEST 08/06/2022 11:30 am TECHNIQUE: CTA of the chest was performed after the administration of intravenous contrast. Multiplanar reformatted images are provided for review. MIP images are provided for review. Automated exposure control, iterative reconstruction, and/or weight based adjustment of the mA/kV was utilized to reduce the radiation dose to as low as reasonably achievable. COMPARISON: 01/26/2021. HISTORY: ORDERING SYSTEM PROVIDED HISTORY: Reason for Exam: sob / pt on bipap chest pain; suspect PE FINDINGS: Pulmonary Arteries: Pulmonary arteries are adequately opacified for evaluation. No central, lobar, segmental, or subsegmental embolism given respiratory motion and bibasilar atelectasis/consolidation. Main pulmonary artery is normal in caliber. Mediastinum: No evidence of mediastinal lymphadenopathy. Cardiomegaly. Suspect left ventricle dilatation. There is pericardial thickening versus a small amount of pericardial fluid. Normal rightward IV septal bowing. Aortic and, to a lesser extent, mitral annulus calcifications. Coronary artery calcifications. Dilated main pulmonary artery at 3.8 cm. The ascending aorta measures 5.1 cm, stable. Lungs/pleura: Small right and trace left pleural effusions with associated compressive atelectasis/consolidation. No pneumothorax. Scattered calcified granulomas. There is irregular nodular consolidation in the right upper lobe measuring 1.2 cm on series 2, image 143. There is a 4 mm nodule in the right middle lobe on series 2, image 117. Upper Abdomen: Contrast reflux into the IVC. Otherwise limited images of the upper abdomen are unremarkable. Soft Tissues/Bones: Left gynecomastia. No acute bone or soft tissue abnormality. IMPRESSION: No evidence of pulmonary embolism. Nodular consolidation in the right upper lobe. A CT thorax in 6-8 weeks is recommended to ensure resolution. Small right and trace left pleural effusions with associated compressive atelectasis/consolidation. Superimposed infection is additional consideration. Attention on follow-up. Stable ascending aortic aneurysm. Dilated main pulmonary artery can be seen with pulmonary hypertension. I have personally reviewed the images of this examination and edited the resident's findings and interpretation. RECOMMENDATIONS: Unavailable Interpreted by: Ángel Heard Preliminary Report By: Geoffrey Easton Electronically signed By Ángel Heard Dictated Date: 08/06/2022 11:43:59 AM Prelim Date: 08/06/2022 11:59:04 AM Sign Date: 08/06/2022 12:29:16 PM Ordering Provider: [facility]02-18-2023 Note ORIGINAL EXAMINATION: ONE XRAY VIEW OF THE CHEST 08/06/2022 9:46 am COMPARISON: Chest radiograph 01/25/2021, 01/21/2021, 12/04/2020 HISTORY: ORDERING SYSTEM PROVIDED HISTORY: Reason for Exam: Shortness of breath, cough, fever FINDINGS: Exam is degraded by patient body habitus and portable technique. Mild cardiomegaly.. Hypoventilatory changes. Increased interstitial markings are present. No focal consolidation. No visible pneumothorax or pleural effusion. IMPRESSION: Cardiomegaly and mild vascular congestion. Interpreted by: Nola Heard Preliminary Report By: Nola Heard Electronically signed By Nola Heard Dictated Date: 08/06/2022 9:52:42 AM Prelim Date: 08/06/2022 9:54:36 AM Sign Date: 08/06/2022 9:54:36 AM Ordering Provider: [facility]02-18-2023 Note ORIGINAL EXAMINATION: ONE XRAY VIEW OF THE CHEST 08/06/2022 9:46 am COMPARISON: Chest radiograph 01/25/2021, 01/21/2021, 12/04/2020 HISTORY: ORDERING SYSTEM PROVIDED HISTORY: Reason for Exam: Shortness of breath, cough, fever FINDINGS: Exam is degraded by patient body habitus and portable technique. Mild cardiomegaly.. Hypoventilatory changes. Increased interstitial markings are present. No focal consolidation. No visible pneumothorax or pleural effusion. IMPRESSION: Cardiomegaly and mild vascular congestion. Interpreted by: Nola Heard Preliminary Report By: Nola Heard Electronically signed By Nola Heard Dictated Date: 08/06/2022 9:52:42 AM Prelim Date: 08/06/2022 9:54:36 AM Sign Date: 08/06/2022 9:54:36 AM Ordering Provider: DAWSON [facility] course Narrative No data available for this section [facility] Summary Purpose Family History No Family History Records FoundNo Family History Records FoundNo Family History Records FoundNo Family History Records FoundNo Family History Records Found Advance Directives No Advanced Directives Records FoundNo Advanced Directives Records FoundNo Advanced Directives Records FoundNo Advanced Directives Records FoundNo Advanced Directives Records Found Additional Source Comments (unrecognized sect ion and content) No Status Records FoundNo Status Records FoundNo Status Records FoundNo Status Records FoundNo Status Records Found INFORMATION SOURCE (unrecogn ized section and content) DATE CREATED AUTHOR 12/13/2017 [facility] DATE CREATED AUTHOR AUTHOR'S ORGANIZ ATION 05/27/2018 [facility] DATE CREATED AUTHOR AUTHOR'S ORGANIZ ATION 06/09/[address] [facility] DATE CREATED AUTHOR AUTHOR'S ORGANIZ ATION 09/15/2022 [facility] ([place]) DATE CREATED AUTHOR AUTHOR'S ORGANIZ ATION 07/13/2024 [facility] Care Team (unrecognized sect ion and content) Care Team Personnel Name: DAWSON OLSEN MD Member Role: Primary Care Physician Address: Address: [place] [id number] [place] [address] Name: Buck Kunz snuff blender Position: PharmNet: Fleecer/Tech Member Role: Alum Operator Name: Maria Burks RN Position: P3 b2b outside sales representative Member Role: b2b outside sales representative Name: Caitlin Lion Position: P3 Registration- Calcine Furnace Tender Name: MD MIKAELA FELDER MD Position: ED Physician Member Role: ED Physician Address: Address: [facility] [address] [place] [id number] Care Team Related Persons Name: CRISTY ALETHEA Address: Home [address] Patient Care team informatio n (unrecognized section and content) Care Team Personnel Name: DAWSON OLSEN MD Member Role: Primary Care Physician Address: Address: [place] [id number] [place] [address] Care Team Related Persons Name: ALETHEA MUNIZ Address: Home [address] FOR RECORDS PERTAINING TO PATIENTS WHO ARE OR HAVE BEEN ENROLLED IN A CHEMICAL DEPENDENCY/SUBSTANCEABUSE PROGRAM, SOME INFORMATION MAY BE OMITTED. This clinical summary was aggregated from multiple sources. Caution should be exercised in using it in the provision of clinical care. This summary normalizes information from multiple sources, and as a consequence, information in this document may materially change the coding, format and clinical context of patient data. In addition, data may be omitted in some cases. CLINICAL DECISIONS SHOULD BE BASED ON THE PRIMARY CLINICAL RECORDS. [employer] provides no warranty or guarantee of the accuracy or completeness of information in this document.
--- NOTE | 2025-03-21 20:37 | CASEMGMT ---
Care Management Face to Face with patient for initial transition planning/care coordination assessment in the ED.? This life insurance underwriter introduced self and role at [facility]. Patient alert and oriented. Patient willing to participate in assessment and is able to answer all questions appropriately.? Care providers, pharmacy, and demographics verified. Admitting Diagnosis: ??Shortness of Breath Other diagnosis history: ?cardiomyopathy, pulmonary emboli, aortic stenosis, CHF, insulin dependent diabetes PCP: ?[facility] Specialists: ?none Preferred Pharmacy: [facility] in [place] Insurance: Self pay Prescription Benefit: ?none Living Will/HPOA: ?Ceja not have completed LNOK: ? Living Arrangements: ?patient lives with in a three story home, he lives on first floor, son lives on second floor Transportation: ?patient drives DME: ?walker, rollator, electric wheelchair, grab bars in bathroom, shower chair[facility] Resources: ?none Behavioral Health History: ?none Patient goals: Patient wishes to discharge home. Patient denies any further needs or concerns at this time. Disposition Plan: admission to acute; RN CM/SW to follow for discharge planning needs that may arise. Cyndi [employer], SHEET ROCK INSTALLATION HELPER, WEIGHT COUNT OPERATOR
--- NOTE | 2025-03-21 20:42 | EKG12_ITS ---
Test Reason : CP ADMIT Blood Pressure : */* mmHG Vent. Rate : 80 BPM Atrial Rate : 80 BPM P-R Int : 202 ms QRS Dur : 172 ms QT Int : 436 ms P-R-T Axes : 11 -43 116 degrees QTcB Int : 502 ms Sinus rhythm with frequent Premature ventricular complexes in a pattern of bigeminy Left axis deviation Left bundle branch block Abnormal ECG When compared with ECG of 21-Mar-2025 16:23, MANUAL COMPARISON REQUIRED DATA IS UNCONFIRMED Confirmed by RINA CHILEL, NERI ([id number]), assistant editor CAREY LOPEZ ([id number]) on 03/24/2025 8:44:47 AM Referred By: MARISA Confirmed By: NERI FLYNN MD
[2025-03-21 20:59] LABS: Troponin T High Sens 4 HR 567 ng/L (<=22)
--- NOTE | 2025-03-21 21:00 | NURSING ---
Trop 567, Dr Lopez notified.
[2025-03-21 21:06] LABS: Magnesium 2.6 mg/dL (1.5-2.2)
[2025-03-21] MEDS: Heparin Injection (Vial) 5,000 UNIT/ML VIAL 4000 UNIT IV (21:11)
--- OUTSIDE RECORDS SUMMARY | 2025-03-21 21:17 | XMS RPT_ITS | CCD ---
Author Organization [facility] Care Team Providers Care Moth Proofer Name Role Phone DAWSON OLSEN Unavailable Unavailable [...] Primary Care UnavailDawson Villalobos Referring Unavailable Roof SENIOR MILITARY ANALYST, Chidi Lopez Attending Unavailable Dawson Olsen Primary Care Unavailable Dawson Olsen Primary Care Unavailable Dawson Olsen Referring Unavailable Sofia Garg Attending Unavailable Sofia Garg Attending Unavailable Dawson Olsen Primary Care Unavailable Pretty, Dawson Primary Care Unavailable ForestSofia lópez Attending Unavailable ForestSofia lópez Consulting Unavailable Elver Bradley Admitting Unavailable Elver Bradley Attending Unavailable Pretty, Dawson Primary Care Unavailable Elver Bradley Consulting Unavailable Roof SENIOR MILITARY ANALYST, Chidi Lopez Referring Unavailable Roof SENIOR MILITARY ANALYST, Chidi Lopez Attending Unavailable Pretty, Dawson Primary Care Unavailable Pretty, Dawson Primary Care Unavailable Forest, Sofia Consulting Unavailable lEver Bradley Attending Unavailable Elver Bradley Admitting Unavailable ForestSofia lópez Attending Unavailable Medications Current Medications Medication Drug Class(es) Dates Sig (Normalized) Sig (Original) aspirin 81 mg chewable tablet (2 sources) Platelet Aggregation Inhibitor, Nonsteroidal Anti-inflammatory Drug Start: 08-19-2022 aspirin 81 mg oral tablet, chewable Dose : 81 mg = 1 tab(s), Oral, qDayM, # 30 tab(s), 11 Refill(s), Pharmacy: [facility], 177.8, cm, 08/06/22 17:47:00 EST, Height [...] Respiratory failure; insufficiency; arrest (adult) (5 sources) Rjvjs-nh-dionirl respiratory failure; Translations: [Acute and chronic respiratory failure with hypercapnia] Onset: 03-11-2024 Chronic Skin and subcutaneous tissue infections (2 sources) Cellulitis 06-03-2016 Episodic Comment on above: left leg occured in Feb 2016 Unclassified (1 source) Unknown / UNK(Unknown) Onset: 12-21-2016 Unclassified (1 source) Charcot's joint, left ankle and foot / M14.672(ICD-10) Onset: 04-20-2018 Unclassified (1 source) [facility] compl of other internal joint prosthesis, init [...] and foot] Onset: 04-20-2018 Unclassified (1 source) [facility] compl of other internal joint prosthesis, init encntr; Translations: [[facility] compl of other internal joint prosthesis, init encntr] Onset: 04-20-2018 Results Test Name Value Interpretation Reference Range Facility Cardiology Visit Reporton Cardiology Visit Report [facility] [address] [place] [address] OFFICE VISIT Date of Service: 07/11/24 MR#: [id number] Acct: [id number] Name: SHEREE MUNIZ Rep #: [id number] : 1955 Provider: Dr. Sofia Garg MD Age/Sex: 69/M Location: [facility] [place] Status: Signed HPI HPI History of Present [...] NIBP Intake Visit Reasons: 3 M FU Physician Surgeon Required: No Accompanied by: Is patient in [...] the past year?: Yes (no major injury) [facility] Medical History (Updated 07/11/24 @ 11:29 by [...] 35%. Moderate (more content not included)... Normal [facility] Echo Limited w/Contraston Echo Limited w/Contrast [facility] [address] [place] [address] Echo Limited w/Contrast 05/20/24 1303 MR#: [id number] Acct: [id number] Name: SHEREE MUNIZ Rep #: [id number] : 1955 68 From: Sofia Garg MD Attending Dr: Chidi Goins SENIOR MILITARY ANALYST-C Status: REG CLI Ordering Dr: Chidi Goins SENIOR MILITARY ANALYST SENIOR MILITARY ANALYST-C Date: 05/20/24 Location: [facility] Sex: M C [...] Dictated: 05/20/24 1303 Date Transcribed: 05/22/24 1206 Film Painter: Signed Normal [facility] Cardiology Visit Reporton Cardiology Visit Report [facility] [address] [place] [address] OFFICE VISIT Date of Service: 03/20/24 MR#: [id number] Acct: [id number] Name: SHEREE MUNIZ Rep #: [id number] : 1955 Provider: LIZ garcia Age/Sex: 68/M [place] [facility] [place] Signed [facility] History of Present Illness Details: This is a 68-year-old male who presents to the office today for a posthospital follow-up. He was first seen in consultation in February 2024. He presented [facility] on 03/06/2024 for shortness of breath. BNP [...] He has had previous cardiac workup at [facility]. He denies chest, arm, jaw, or neck [...] Pulse Source NIBP Intake Visit Reasons: S/P [facility] 03/07 Physician Surgeon Required: No Accompanied by: Is patient in [...] (Reviewed 03/20/24 @ 14:14 by Chidi Goins SENIOR MILITARY ANALYST, SENIOR MILITARY ANALYST-C) HLD (hyperlipidemia) HTN (hypertension) Non-ischemic cardiomyopathy Morbid [...] (Reviewed 03/20/24 @ 14:14 by Chidi Goins SENIOR MILITARY ANALYST, SENIOR MILITARY ANALYST-C) History of ankle surgery History of foot surgery History of tonsillectomy Family History Mother Cancer Glaucoma Brother Aortic aneurysm Father Myocardial infarction Sister Cancer Sister Cardiomyopathy Brother Pulmonary fibrosis Social History (Reviewed 03/20/24 @ 14:14 by Chidi Goins SENIOR MILITARY ANALYST, SENIOR MILITARY ANALYST-C) household members: none Smoking Status: Never smoker [...] muscle weakne (more content not included)... Normal [facility] Basic Metabolic Profile (BMP )on 03-11-2024 BUN Normal 7-18 [facility] Comment on above: Result Comment: Canc elled via OM: Order cancelled - Patient discharged Performed By: #### L 500.2500 #### [facility] [address] [place], [address] BUN/CRE Normal 10-20 [facility] Comment on above: Result Comment: Canc elled via OM: Order cancelled - Patient discharged Performed By: #### L 500.2500 #### [facility] [address] [place], [address] CA,Total Normal 8.5-10.1 [facility] Comment on above: Result Comment: Canc elled via OM: Order cancelled - Patient discharged Performed By: #### L 500.2500 #### [facility] [address] [place], [address] CL Normal 98-107 [facility] Comment on above: Result Comment: Canc elled via OM: Order cancelled - Patient discharged Performed By: #### L 500.2500 #### [facility] [address] [place], [address] CO2 Normal 21.0-32.0 [facility] Comment on above: Result Comment: Canc elled via OM: Order cancelled - Patient discharged Performed By: #### L 500.2500 #### [facility] [address] [place], [address] CREAT,SERUM Normal 0.70-1.30 [facility] Comment on above: Result Comment: Canc elled via OM: Order cancelled - Patient discharged Performed By: #### L 500.2500 #### [facility] [address] [place], [address] EST GFR Normal >60 [facility] Comment on above: Result Comment: Canc elled via OM: Order cancelled - Patient discharged Performed By: #### L 500.2500 #### [facility] [address] [place], [address] EST GFR - AA Normal >60 [facility] Comment on above: Result Comment: Canc elled via OM: Order cancelled - Patient discharged Performed By: #### L 500.2500 #### [facility] [address] [place], [address] GAP Normal 5-15 [facility] Comment on above: Result Comment: Canc elled via OM: Order cancelled - Patient discharged Performed By: #### L 500.2500 #### [facility] [address] [place], [address] GLU Normal 74-106 [facility] Comment on above: Result Comment: Canc elled via OM: Order cancelled - Patient discharged Performed By: #### L 500.2500 #### [facility] [address] [place], [address] Potassium Normal 3.5-5.1 [facility] Comment on above: Result Comment: Canc elled via OM: Order cancelled - Patient discharged Performed By: #### L 500.2500 #### [facility] [address] [place], [address] Basic Metabolic Profile (BMP) Normal 136-145 [facility] Comment on above: Result Comment: Canc elled via OM: Order cancelled - Patient discharged Performed By: #### L 500.2500 #### [facility] [address] [place], [address] Basic Metabolic Profile (BMP )on 03-10-2024 BUN Normal 7-18 [facility] Comment on above: Result Comment: Canc elled via OM: Order cancelled - Patient discharged Performed By: #### L 500.2500 #### [facility] [address] [place], [address] BUN/CRE Normal 10-20 [facility] Comment on above: Result Comment: Canc elled via OM: Order cancelled - Patient discharged Performed By: #### L 500.2500 #### [facility] [address] [place], [address] CA,Total Normal 8.5-10.1 [facility] Comment on above: Result Comment: Canc elled via OM: Order cancelled - Patient discharged Performed By: #### L 500.2500 #### [facility] [address] [place], [address] CL Normal 98-107 [facility] Comment on above: Result Comment: Canc elled via OM: Order cancelled - Patient discharged Performed By: #### L 500.2500 #### [facility] [address] [place], [address] CO2 Normal 21.0-32.0 [facility] Comment on above: Result Comment: Canc elled via OM: Order cancelled - Patient discharged Performed By: #### L 500.2500 #### [facility] [address] [place], [address] CREAT,SERUM Normal 0.70-1.30 [facility] Comment on above: Result Comment: Canc elled via OM: Order cancelled - Patient discharged Performed By: #### L 500.2500 #### [facility] [address] [place], [address] EST GFR Normal >60 [facility] Comment on above: Result Comment: Canc elled via OM: Order cancelled - Patient discharged Performed By: #### L 500.2500 #### [facility] [address] [place], [address] EST GFR - AA Normal >60 [facility] Comment on above: Result Comment: Canc elled via OM: Order cancelled - Patient discharged Performed By: #### L 500.2500 #### [facility] [address] [place], [address] GAP Normal 5-15 [facility] Comment on above: Result Comment: Canc elled via OM: Order cancelled - Patient discharged Performed By: #### L 500.2500 #### [facility] [address] [place], [address] GLU Normal 74-106 [facility] Comment on above: Result Comment: Canc elled via OM: Order cancelled - Patient discharged Performed By: #### L 500.2500 #### [facility] [address] [place], [address] Potassium Normal 3.5-5.1 [facility] Comment on above: Result Comment: Canc elled via OM: Order cancelled - Patient discharged Performed By: #### L 500.2500 #### [facility] [address] [place], [address] Basic Metabolic Profile (BMP) Normal 136-145 [facility] Comment on above: Result Comment: Canc elled via OM: Order cancelled - Patient discharged Performed By: #### L 500.2500 #### [facility] [address] [place], [address] Basic Metabolic Profile (BMP )on 03-09-2024 BUN/CRE 54.7 RATIO High 10-20 [facility] Comment on above: Performed By: #### L 500.2500 #### [facility] [address] [place], [address] CA,Total 9.2 mg/dL Normal 8.5-10.1 [facility] Comment on above: Performed By: #### L 500.2500 #### [facility] [address] [place], [address] Chloride [Moles/Vol] 100 mmol/L Normal 98-107 [facility] Comment on above: Performed By: #### L 500.2500 #### [facility] [address] [place], [address] CO2 [Moles/Vol] 38.0 mmol/L High 21.0-32.0 [facility] Comment on above: Performed By: #### L 500.2500 #### [facility] [address] [place], [address] Creatinine [Mass/Vol] 1.50 mg/dL High 0.70-1.30 [facility] Comment on above: Result Comment: The validity of the calculated GFR GFRAA in patients over 70 years has not been determined. Clinical correlation is essential. Performed By: #### L 500.2500 #### [facility] [address] [place], [address] ECRCL 70.21 ml/min Normal [facility] Comment on above: Performed By: #### L 500.2500 #### [facility] [address] [place], [address] EST GFR - AA 59 mL/min Low >60 [facility] Comment on above: Result Comment: Afri can [facility] GFR Calc Performed By: #### L 500.2500 #### [facility] [address] [place], [address] GAP 2 Low 5-15 [facility] Comment on above: Performed By: #### L 500.2500 #### [facility] [address] [place], [address] GFR/1.73 sq M.predicted among non-blacks MDRD (S/P/Bld) [Vol rate/Area] 49 mL/min/{1.73_m2} Low >60 [facility] Comment on above: Result Comment: Non- GFR Calc Performed By: #### L 500.2500 #### [facility] [address] [place], [address] Glucose [Mass/Vol] 144 mg/dL High 74-106 [facility] Comment on above: Result Comment: Fast ing Glucose result greater than or equal to 126 mg/dL suggests DIABETES MELLITUS per A.D.A. criteria. Performed By: #### L 500.2500 #### [facility] [address] [place], [address] Potassium [Moles/Vol] 4.5 mmol/L Normal 3.5-5.1 [facility] Comment on above: Performed By: #### L 500.2500 #### [facility] [address] [place], [address] Sodium [Moles/Vol] 140 mmol/L Normal 136-145 [facility] Comment on above: Performed By: #### L 500.2500 #### [facility] [address] [place], [address] Urea nitrogen [Mass/Vol] 82 mg/dL High 7-18 [facility] Comment on above: Performed By: #### L 500.2500 #### [facility] [address] [place], [address] Bedside Glucoseon 03-09-2024 FINGERSTICK GLU 196 mg/dL High 74-106 [facility] Comment on above: Result Comment: URI GEMENT OF PATIENT CARE PER NURSING PROTOCOL Performed By: #### L 9000.0800 #### [facility] [address] [place], [address] FINGERSTICK GLU 135 mg/dL High 74-106 [facility] Comment on above: Result Comment: URI GEMENT OF PATIENT CARE PER NURSING PROTOCOL Performed By: #### L 500.2500 #### [facility] [address] [place], [address] Discharge Instructionon 02-18 Discharge Instruction [facility] Medical Records Department [address] [place] [address] Instructions for Home/Discharge Instructions 03/09/24 1228 MR#: [id number] Acct: [id number] Name: SHEREE MUNIZ Rep #: [id number] : 1955 68 From: Elver Bradley DO [...] MD; Dr. Dawson Olsen MD Signed Normal [facility] Basic Metabolic Profile (BMP )on 03-08-2024 BUN/CRE 46.7 RATIO High - [facility] Comment on above: Performed By: #### L 9000.0800 #### [facility] [address] [place], [address] CA,Total 8.8 mg/dL Normal 8.5-10.1 [facility] Comment on above: Performed By: #### L 9000.0800 #### [facility] [address] [place], [address] Chloride [Moles/Vol] 100 mmol/L Normal 98-107 [facility] Comment on above: Performed By: #### L 9000.0800 #### [facility] [address] [place], [address] CO2 [Moles/Vol] 33.0 mmol/L High 21.0-32.0 [facility] Comment on above: Performed By: #### L 9000.0800 #### [facility] [address] [place], [address] Creatinine [Mass/Vol] 1.69 mg/dL High 0.70-1.30 [facility] Comment on above: Result Comment: The validity of the calculated GFR GFRAA in patients over 70 years has not been determined. Clinical correlation is essential. Performed By: #### L 9000.0800 #### [facility] [address] [place], [address] ECRCL 62.71 ml/min Normal [facility] Comment on above: Performed By: #### L 9000.0800 #### [facility] [address] [place], [address] EST GFR - AA 52 mL/min Low >60 [facility] Comment on above: Result Comment: Afri can [facility] GFR Calc Performed By: #### L 9000.0800 #### [facility] [address] [place], [address] GAP 4 Low 5-15 [facility] Comment on above: Performed By: #### L 9000.0800 #### [facility] [address] [place], [address] GFR/1.73 sq M.predicted among non-blacks MDRD (S/P/Bld) [Vol rate/Area] 43 mL/min/{1.73_m2} Low >60 [facility] Comment on above: Result Comment: Non- GFR Calc Performed By: #### L 0.0800 #### [facility] [address] [place], [address] Glucose [Mass/Vol] 157 mg/dL High 74-106 [facility] Comment on above: Result Comment: Fast ing Glucose result greater than or equal to 126 mg/dL suggests DIABETES MELLITUS per A.D.A. criteria. Performed By: #### L 9000.0800 #### [facility] [address] [place], [address] Potassium [Moles/Vol] 4.9 mmol/L Normal 3.5-5.1 [facility] Comment on above: Result Comment: Mode rate Hemolysis, Result may be falsely increased. Performed By: #### L 9000.0800 #### [facility] [address] [place], [address] Sodium [Moles/Vol] 137 mmol/L Normal 136-145 [facility] Comment on above: Performed By: #### L 9000.0800 #### [facility] [address] [place], [address] Urea nitrogen [Mass/Vol] 79 mg/dL High 7-18 [facility] Comment on above: Performed By: #### L 9000.0800 #### [facility] [address] [place], [address] Bedside Glucoseon 03-08-2024 FINGERSTICK GLU 182 mg/dL High -106 [facility] Comment on above: Result Comment: URI GEMENT OF PATIENT CARE PER NURSING PROTOCOL Performed By: #### L 9000.0800 #### [facility] [address] [place], [address] FINGERSTICK GLU 114 mg/dL High [facility]106 [facility] Comment on above: Result Comment: URI GEMENT OF PATIENT CARE PER NURSING PROTOCOL Performed By: #### L 9000.0800 #### [facility] [address] [place], [address] FINGERSTICK GLU 183 mg/dL High [address] [place] [address] Comment on above: Result Comment: URI GEMENT OF PATIENT CARE PER NURSING PROTOCOL Performed By: #### L 9000.0800 #### [facility] [address] [place], [address] FINGERSTICK GLU 166 mg/dL High [facility]106 [facility] Comment on above: Result Comment: URI GEMENT OF PATIENT CARE PER NURSING PROTOCOL Performed By: #### L 9000.0800 #### [facility] [address] [place], [address] FINGERSTICK GLU 163 mg/dL High [address] [place] [address] Comment on above: Result Comment: URI GEMENT OF PATIENT CARE PER NURSING PROTOCOL Performed By: #### L 9000.0800 #### [facility] [address] [place], [address] Magnesiumon 03-08-2024 Magnesium [Mass/Vol] 2.9 mg/dL High 1.6-2.6 [facility] Comment on above: Result Comment: Mode rate Hemolysis, Result may be falsely increased. Performed By: #### L 9000.0800 #### [facility] [address] [place], [address] Basic Metabolic Profile (BMP )on 03-07-2024 BUN/CRE 50.0 RATIO High 10-20 [facility] Comment on above: Performed By: #### L 503.6620, L500.4050, L503.6005, L501.5425, L100.0100 #### [facility] [address] [place], [address] CA,Total 9.0 mg/dL Normal 8.5-10.1 [facility] Comment on above: Performed By: #### L 503.6620, L500.4050, L503.6005, L501.5425, L100.0100 #### [facility] [address] [place], [address] Chloride [Moles/Vol] 99 mmol/L Normal 98-107 [facility] Comment on above: Performed By: #### L 503.6620, L500.4050, L503.6005, L501.5425, L100.0100 #### [facility] [address] [place], [address] CO2 [Moles/Vol] 38.0 mmol/L High 21.0-32.0 [facility] Comment on above: Performed By: #### L 503.6620, L500.4050, L503.6005, L501.5425, L100.0100 #### [facility] [address] [place], [address] Creatinine [Mass/Vol] 1.62 mg/dL High 0.70-1.30 [facility] Comment on above: Result Comment: The validity of the calculated GFR GFRAA in patients over 70 years has not been determined. Clinical correlation is essential. Performed By: #### L 503.6620, L500.4050, L503.6005, L501.5425, L100.0100 #### [facility] [address] [place], [address] ECRCL 65.25 ml/min Normal [facility] Comment on above: Performed By: #### L 503.6620, L500.4050, L503.6005, L501.5425, L100.0100 #### [facility] [address] [place], [address] EST GFR - AA 54 mL/min Low >60 [facility] Comment on above: Result Comment: Afri can [facility] GFR Calc Performed By: #### L 503.6620, L500.4050, L503.6005, L501.5425, L100.0100 #### [facility] [address] [place], [address] GAP 2 Low 5-15 [facility] Comment on above: Performed By: #### L 503.6620, L500.4050, L503.6005, L501.5425, L100.0100 #### [facility] [address] [place], [address] GFR/1.73 sq M.predicted among non-blacks MDRD (S/P/Bld) [Vol rate/Area] 45 mL/min/{1.73_m2} Low >60 [facility] Comment on above: Result Comment: Non- GFR Calc Performed By: #### L 503.6620, L500.4050, L503.6005, L501.5425, L100.0100 #### [facility] [address] [place], [address] Glucose [Mass/Vol] 118 mg/dL High 74-106 [facility] Comment on above: Result Comment: Fast ing Glucose result from 100 to 125 mg/dL suggests IMPAIRED HOMEOSTASIS per A.D.A. criteria. Performed By: #### L 503.6620, L500.4050, L503.6005, L501.5425, L100.0100 #### [facility] [address] [place], [address] Potassium [Moles/Vol] 4.5 mmol/L Normal 3.5-5.1 [facility] Comment on above: Performed By: #### L 503.6620, L500.4050, L503.6005, L501.5425, L100.0100 #### [facility] [address] [place], [address] Sodium [Moles/Vol] 139 mmol/L Normal 136-145 [facility] Comment on above: Performed By: #### L 503.6620, L500.4050, L503.6005, L501.5425, L100.0100 #### [facility] Laboratory [address] [place], [address] Urea nitrogen [Mass/Vol] 81 mg/dL High 7-18 [facility] Comment on above: Performed By: #### L 503.6620, L500.4050, L503.6005, L501.5425, L100.0100 #### [facility] Laboratory [address] [place], [address] Bedside Glucoseon 03-07-2024 FINGERSTICK GLU 168 mg/dL High 74-106 [facility] Comment on above: Result Comment: URI GEMENT OF PATIENT CARE PER NURSING PROTOCOL Performed By: #### L 9000.0800 #### [facility] Laboratory [address] [place], [address] FINGERSTICK GLU 187 mg/dL High 74-106 [facility] Comment on above: Result Comment: URI GEMENT OF PATIENT CARE PER NURSING PROTOCOL Performed By: #### L 9000.0800 #### [facility] Laboratory [address] [place], [address] FINGERSTICK GLU 107 mg/dL High 74-106 [facility] Comment on above: Result Comment: URI GEMENT OF PATIENT CARE PER NURSING PROTOCOL Performed By: #### L 9000.0800 #### [facility] Laboratory [address] [place], [address] FINGERSTICK GLU 120 mg/dL High 74-106 [facility] Comment on above: Result Comment: URI PIRES OF PATIENT CARE PER NURSING PROTOCOL Performed By: #### L 9000.0800 #### [facility] Laboratory [address] [place], [address] CBC-Complete Blood Cnt No Di ffon 03-07-2024 Erythrocyte distribution width (RBC) [Ratio] 15.3 % High 11.6-14.6 [facility] Comment on above: Performed By: #### L 9000.0800 #### [facility] Laboratory [address] [place], [address] Hematocrit (Bld) [Volume fraction] 46.4 % Normal 40-54 [facility] Comment on above: Performed By: #### L 9000.0800 #### [facility] Laboratory [address] [place], [address] Hemoglobin (Bld) [Mass/Vol] 13.7 g/dL Normal 13.0-16.5 [facility] Comment on above: Performed By: #### L 9000.0800 #### [facility] Laboratory [address] [place], [address] MCH (RBC) [Entitic mass] 29.0 pg Normal 27.0-32.0 [facility] Comment on above: Performed By: #### L 9000.0800 #### [facility] Laboratory [address] [place], [address] MCHC (RBC) [Mass/Vol] 29.5 g/dL Low 32-36 [facility] Comment on above: Performed By: #### L 9000.0800 #### [facility] Laboratory [address] [place], [address] MCV (RBC) [Entitic vol] 98.1 fL High 80-94 [facility] Comment on above: Performed By: #### L 9000.0800 #### [facility] Laboratory [address] [place], [address] Platelet mean volume (Bld) [Entitic vol] 12.2 fL High 6.2-12.0 [facility] Comment on above: Performed By: #### L 9000.0800 #### [facility] Laboratory [address] [place], [address] Platelets (Bld) [#/Vol] 144 10*3/uL Low 150-450 [facility] Comment on above: Performed By: #### L 9000.0800 #### [facility] Laboratory [address] [place], [address] RBC (Bld) [#/Vol] 4.73 10*6/uL Normal 4.6-6.2 [facility] Comment on above: Performed By: #### L 9000.0800 #### [facility] Laboratory [address] [place], [address] RDW SD 54.7 fl High 35.1-43.9 [facility] Comment on above: Performed By: #### L 9000.0800 #### [facility] Laboratory [address] [place], [address] WBC (Bld) [#/Vol] 4.3 10*3/uL Low 4.4-11.0 [facility] Comment on above: Performed By: #### L 9000.0800 #### [facility] Laboratory [address] [place], [address] Consultation - Cardiologyon 03-07-2024 Consultation - Cardiology [facility] Medical Records Department [address] [place] [address] Consultation - Cardiology 03/07/24 1047 MR#: [id number] Acct: [id number] Name: SHEREE MUNIZ Rep #: [id number] : 1955 68 From: Sofia Garg MD PCP: Dr. [place] Olsen MD Status:ADM IN Location: [place] [address] Assessment Plan Assessment/Plan (1) Acute on chronic systolic congestive heart failure, NYHA class 3: PLAN: Continue diuresis. Switch to furosemide 80 mg IV twice daily. Already started on spironolactone and empagliflozin. It is noted that the patient was on carvedilol 25 mg twice daily at home. Switch back to carvedilol. Add ACEI. (2) Dilated cardiomyopathy: PLAN: See #1 above. Will need records from [facility]. (3) Moderate aortic valve stenosis: PLAN: Monitor. [...] failure. Per him, he was diagnosed at [facility] with congestive heart failure. According to him, [...] Moderate aortic valve stenosis was also noted. [facility] Medical History Walking difficulty due to ankle [...] Site Cancelled (more content not included)... Normal [facility] Hemoglobin A1con 03-07-2024 HbA1c (Bld) [Mass fraction] 6.7 % High 3.8-5.6 [facility] Comment on above: Result Comment: Norm al < 5.7 % Prediabetic 5.7 - 6.4 % Diabetic >or= 6.5 % Please note range changes. Performed By: #### L 501.9900 #### [facility] Laboratory [address] [facility] [place], [address] 12 Lead EKGon 03-06-2024 12 Lead EKG [facility] Cardiovascular Services [address] [place] [address] 12 Lead EKG 03/06/24 0836 MR#: [id number] Acct: [id number] Name: SHEREE MUNIZ Rep #: [id number] : 1955 68 From: Govind Hagan MD Attending Dr: Dr. Elver Bradley, Status : DIS IN Ordering Dr: Tone Olivier MD Date: 03/06/24 Location: [facility] Sex: M C Admitted: 03/06/24 Test Reason [...] block Abnormal ECG Confirmed by Govind Hagan ([id number]), editor & co founder ISSA RECINOS ([id number]) on 03/11/2024 10:19:34 AM Referred By: GISELLE/SHAILA Confirmed By:Govind Hagan 03/11/24 1019 Date Govind Hagan MD CC: Dr. Elver Bradley DO; Dr. Dawson Olsen MD; Dr. Tone Olivier MD Signed Normal [facility] BNP,B-Type NATRIURETIC PEPTI Tye 03-06-2024 Natriuretic peptide B (Bld) [Mass/Vol] 1794.5 pg/mL High 0-100 [facility] Comment on above: Performed By: #### L 503.6620, L500.4050, L503.6005, L501.5425, L100.0100 #### [facility] Laboratory [address] [place], [address] Bedside Glucoseon 03-06-2024 FINGERSTICK GLU 133 mg/dL High 74-106 [facility] Comment on above: Result Comment: URI GEMENT OF PATIENT CARE PER NURSING PROTOCOL Performed By: #### L 501.080 #### [facility] Laboratory [address] [place], [address] FINGERSTICK GLU 124 mg/dL High 74-106 [facility] Comment on above: Result Comment: URI GEMENT OF PATIENT CARE PER NURSING PROTOCOL Performed By: #### L 9000.0800 #### [facility] Laboratory [address] [place], [address] Blood Gases by CPSon 024 KENDALL TEST Positive Normal [facility] Comment on above: Performed By: #### L 9000.0800 #### [facility] Laboratory [address] [place], [address] Base excess Calc (Bld) [Moles/Vol] 9 mmol/L High -2 to +2 [facility] Comment on above: Performed By: #### L 9000.0800 #### [facility] Laboratory [address] [place], [address] Blood Gas Type ART Normal [facility] Comment on above: Performed By: #### L 0.0800 #### [facility] Laboratory [address] [place], [address] CO2 [Moles/Vol] 37 mmol/L Normal [facility] Comment on above: Performed By: #### L 9000.0800 #### [facility] Laboratory [address] [place], [address] FI02 50.0 Normal [facility] Comment on above: Performed By: #### L 0.0800 #### [facility] Laboratory [address] [place], [address] HCO3 (Bld) [Moles/Vol] 34.9 mmol/L High 22-26 [facility] Comment on above: Performed By: #### L 9000.0800 #### [facility] Laboratory [address] [place], [address] Mode BiLevel Normal [facility] Comment on above: Performed By: #### L 0.0800 #### [facility] Laboratory [address] [place], [address] O2 Delivery Dev BiPAP Normal [facility] Comment on above: Performed By: #### L 0.0800 #### [facility] Laboratory [address] [place], [address] pCO2 68.4 mmHg Invalid Interpretation Code 35-45 [facility] Comment on above: Performed By: #### L 0.0800 #### [facility] Laboratory [address] [place], [address] PEEP 5 Normal [facility] Comment on above: Performed By: #### L 9000.0800 #### [facility] Laboratory [address] [place], [address] pH (Bld) 7.32 [pH] Low 7.35-7.45 [facility] Comment on above: Performed By: #### L 9000.0800 #### [facility] Laboratory [address] [place], [address] PO2 117 mmHG High 75-100 [facility] Comment on above: Performed By: #### L 9000.0800 #### [facility] Laboratory [address] [place], [address] Read Back By Yes Normal [facility] Comment on above: Performed By: #### L 9000.0800 #### [facility] Laboratory [address] [place], [address] Results To olivier Normal [facility] Comment on above: Performed By: #### L 9000.0800 #### [facility] Laboratory [address] [place], [address] RR 12 Normal [facility] Comment on above: Performed By: #### L 9000.0800 #### [facility] Laboratory [address] [place], [address] SITE L Radial Normal [facility] Comment on above: Performed By: #### L 9000.0800 #### [facility] Laboratory [address] [place], [address] SO2 98 Normal 95-99 [facility] Comment on above: Performed By: #### L 9000.0800 #### [facility] Laboratory [address] [place], [address] Time Given 10:03:22 Normal [facility] Comment on above: Performed By: #### L 9000.0800 #### [facility] Laboratory [address] [place], [address] Base excess Calc (Bld) [Moles/Vol] 7 mmol/L High -2 to +2 [facility] Comment on above: Result Comment: crit ical value rerun only Performed By: #### L 9000.0800 #### [facility] Laboratory [address] [place], [address] Blood Gas Type ART Normal [facility] Comment on above: Result Comment: crit ical value rerun only Performed By: #### L 9000.0800 #### [facility] Laboratory [address] [place], [address] CO2 [Moles/Vol] 35 mmol/L Normal [facility] Comment on above: Result Comment: crit ical value rerun only Performed By: #### L 9000.0800 #### [facility] Laboratory [address] [place], [address] HCO3 (Bld) [Moles/Vol] 32.8 mmol/L High 22-26 [facility] Comment on above: Result Comment: crit ical value rerun only Performed By: #### L 9000.0800 #### [facility] Laboratory [address] [place], [address] Mode Not entered Normal [facility] Comment on above: Result Comment: crit ical value rerun only Performed By: #### L 9000.0800 #### [facility] Laboratory [address] [place], [address] O2 Delivery Dev Not entered Normal [facility] Comment on above: Result Comment: crit ical value rerun only Performed By: #### L 9000.0800 #### [facility] Laboratory [address] [place], [address] pCO2 65.2 mmHg High 35-45 [facility] Comment on above: Result Comment: crit ical value rerun only Performed By: #### L 9000.0800 #### [facility] Laboratory [address] [place], [address] pH (Bld) 7.31 [pH] Low 7.35-7.45 [facility] Comment on above: Result Comment: crit ical value rerun only Performed By: #### L 9000.0800 #### [facility] Laboratory [address] [place], [address] PO2 132 mmHG High 75-100 [facility] Comment on above: Result Comment: crit ical value rerun only Performed By: #### L 9000.0800 #### [facility] Laboratory [address] [place], [address] SITE Not entered Normal [facility] Comment on above: Result Comment: crit ical value rerun only Performed By: #### L 9000.0800 #### [facility] Laboratory [address] [place], [address] SO2 99 Normal 95-99 [facility] Comment on above: Result Comment: crit ical value rerun only Performed By: #### L 9000.0800 #### [facility] Laboratory [address] [place], [address] KENDALL TEST Positive Normal [facility] Comment on above: Performed By: #### L 9000.0800 #### [facility] Laboratory [address] [place], [address] Base excess Calc (Bld) [Moles/Vol] 9 mmol/L High -2 to +2 [facility] Comment on above: Performed By: #### L 9000.0800 #### [facility] Laboratory [address] [place], [address] Blood Gas Type ART Normal [facility] Comment on above: Performed By: #### L 9000.0800 #### [facility] Laboratory [address] [place], [address] CO2 [Moles/Vol] 37 mmol/L Normal [facility] Comment on above: Performed By: #### L 0.0800 #### [facility] Laboratory [address] [place], [address] FI02 10.0 Normal [facility] Comment on above: Performed By: #### L 0.0800 #### [facility] Laboratory [address] [place], [address] HCO3 (Bld) [Moles/Vol] 34.9 mmol/L High 22-26 [facility] Comment on above: Performed By: #### L 0.0800 #### [facility] Laboratory [address] [place], [address] Mode Not entered Normal [facility] Comment on above: Performed By: #### L 0.0800 #### [facility] Laboratory [address] [place], [address] O2 Delivery Dev HFNC Normal [facility] Comment on above: Performed By: #### L 0.0800 #### [facility] Laboratory [address] [place], [address] pCO2 70.7 mmHg Invalid Interpretation Code 35-45 [facility] Comment on above: Performed By: #### L 0.0800 #### [facility] Laboratory [address] [place], [address] pH (Bld) 7.30 [pH] Low 7.35-7.45 [facility] Comment on above: Performed By: #### L 9000.0800 #### [facility] Laboratory [address] [place], [address] PO2 121 mmHG High 75-100 [facility] Comment on above: Performed By: #### L 0.0800 #### [facility] Laboratory [address] [place], [address] Read Back By Yes Normal [facility] Comment on above: Performed By: #### L 0.0800 #### [facility] Laboratory [address] [place], [address] Results To olivier Normal [facility] Comment on above: Performed By: #### L 0.0800 #### [facility] Laboratory [address] [place], [address] SITE R Radial Normal [facility] Comment on above: Performed By: #### L 0.0800 #### [facility] Laboratory [address] [place], [address] SO2 98 Normal 95-99 [facility] Comment on above: Performed By: #### L 8999.0800 #### [facility] Laboratory [address] [place], [address] Time Given 08:59:31 Normal [facility] Comment on above: Performed By: #### L 0.0800 #### [facility] Laboratory [address] [place], [address] CBC W/Diff, Automatedon 09- Absolute Lymph 0.59 X10 3/uL Low 0.83-4.51 [facility] Comment on above: Performed By: #### L 503.6620, L500.4050, L503.6005, L501.5425, L100.0100 #### [facility] Laboratory [address] [place], [address] Absolute Neut 5.0 X10 3/uL Normal 2.0-7.7 [facility] Comment on above: Performed By: #### L 503.6620, L500.4050, L503.6005, L501.5425, L100.0100 #### [facility] Laboratory [address] [place], [address] Basophils/100 WBC (Bld) 0.5 % Normal 0-1 [facility] Comment on above: Performed By: #### L 503.6620, L500.4050, L503.6005, L501.5425, L100.0100 #### [facility] Laboratory [address] [place], [address] Eosinophils/100 WBC (Bld) 0.2 % Normal 0-5 [facility] Comment on above: Performed By: #### L 503.6620, L500.4050, L503.6005, L501.5425, L100.0100 #### [facility] Laboratory [address] [place], [address] Erythrocyte distribution width (RBC) [Ratio] 15.4 % High 11.6-14.6 [facility] Comment on above: Performed By: #### L 503.6620, L500.4050, L503.6005, L501.5425, L100.0100 #### [facility] Laboratory [address] [place], [address] Hematocrit (Bld) [Volume fraction] 49.1 % Normal 40-54 [facility] Comment on above: Performed By: #### L 503.6620, L500.4050, L503.6005, L501.5425, L100.0100 #### [facility] Laboratory [address] [place], [address] Hemoglobin (Bld) [Mass/Vol] 14.5 g/dL Normal 13.0-16.5 [facility] Comment on above: Performed By: #### L 503.6620, L500.4050, L503.6005, L501.5425, L100.0100 #### [facility] Laboratory [address] [place], [address] IG% 0.300 Normal 0.0-0.9 [facility] Comment on above: Result Comment: IG% - Immature Granulocytes (promyelocytes, myelocytes and metamyelocytes) > 1% indicates that a LEFT SHIFT is Present. Performed By: #### L 503.6620, L500.4050, L503.6005, L501.5425, L100.0100 #### [facility] Laboratory [address] [place], [address] Lymphocytes/100 WBC (Bld) 9.5 % Low 19-41 [facility] Comment on above: Performed By: #### L 503.6620, L500.4050, L503.6005, L501.5425, L100.0100 #### [facility] Laboratory [address] [place], [address] MCH (RBC) [Entitic mass] 28.6 pg Normal 27.0-32.0 [facility] Comment on above: Performed By: #### L 503.6620, L500.4050, L503.6005, L501.5425, L100.0100 #### [facility] Laboratory [address] [place], [address] MCHC (RBC) [Mass/Vol] 29.5 g/dL Low 32-36 [facility] Comment on above: Performed By: #### L 503.6620, L500.4050, L503.6005, L501.5425, L100.0100 #### [facility] Laboratory [address] [place], [address] MCV (RBC) [Entitic vol] 96.8 fL High 80-94 [facility] Comment on above: Performed By: #### L 503.6620, L500.4050, L503.6005, L501.5425, L100.0100 #### [facility] Laboratory [address] [place], [address] Monocytes/100 WBC (Bld) 8.7 % Normal 0-10 [facility] Comment on above: Performed By: #### L 503.6620, L500.4050, L503.6005, L501.5425, L100.0100 #### [facility] Laboratory [address] [place], [address] Neutrophils/100 WBC (Bld) 80.8 % High 47-70 [facility] Comment on above: Performed By: #### L 503.6620, L500.4050, L503.6005, L501.5425, L100.0100 #### [facility] Laboratory [address] [place], [address] Nucleated RBC (Bld) [#/Vol] 0 10*3/uL Normal 0-5 [facility] Comment on above: Performed By: #### L 503.6620, L500.4050, L503.6005, L501.5425, L100.0100 #### [facility] Laboratory [address] [place], [address] Platelet mean volume (Bld) [Entitic vol] 11.3 fL Normal 6.2-12.0 [facility] Comment on above: Performed By: #### L 503.6620, L500.4050, L503.6005, L501.5425, L100.0100 #### [facility] Laboratory [address] [place], [address] Platelets (Bld) [#/Vol] 148 10*3/uL Low 150-450 [facility] Comment on above: Performed By: #### L 503.6620, L500.4050, L503.6005, L501.5425, L100.0100 #### [facility] Laboratory [address] [place], [address] RBC (Bld) [#/Vol] 5.07 10*6/uL Normal 4.6-6.2 [facility] Comment on above: Performed By: #### L 503.6620, L500.4050, L503.6005, L501.5425, L100.0100 #### [facility] Laboratory [address] [place], [address] RDW SD 54.7 fl High 35.1-43.9 [facility] Comment on above: Performed By: #### L 503.6620, L500.4050, L503.6005, L501.5425, L100.0100 #### [facility] Laboratory [address] [place], [address] WBC (Bld) [#/Vol] 6.2 10*3/uL Normal 4.4-11.0 [facility] Comment on above: Performed By: #### L 503.6620, L500.4050, L503.6005, L501.5425, L100.0100 #### [facility] Laboratory [address] [place], [address] Chest 1 View (Portable)on Chest 1 View (Portable) [facility] Imaging Services [address] [place] [address] Chest 1 View (Portable) MR#: [id number] Acct: [id number] Name: SHEREE MUNIZ Rep #: [id number] : 1955 M 68 From: Markell hightower MD PCP: Dr. Dawson Olsen MD Status: REG ER Study: Chest 1 View (Portable) Date of Exam: 03/06/24 Exam# [id number] Ordering Dr: Tone Olivier MD [id number] STUDY: X-RAY CHEST REASON FOR EXAM: Male, [...] 9:10 EDT Reading Location ID and State: [facility] / [place] , Service support , CC: Dr. Dawson Olsen MD; Dr. Tone Olivier MD Film Painter: Signed Normal [facility] Comprehensive Metabolic Prof ilon 03-06-2024 Albumin [Mass/Vol] 3.0 g/dL Low 3.2-5.0 [facility] Comment on above: Order Comment: 1 Y Performed By: #### L 503.6620, L500.4050, L503.6005, L501.5425, L100.0100 #### [facility] Laboratory [address] [place], [address] Albumin/Globulin [Mass ratio] 0.6 {ratio} Low 0.9-2.4 [facility] Comment on above: Order Comment: 1 Y Performed By: #### L 503.6620, L500.4050, L503.6005, L501.5425, L100.0100 #### [facility] Laboratory [address] [place], [address] ALK P 80 U/L Normal 45-117 [facility] Comment on above: Order Comment: 1 Y Performed By: #### L 503.6620, L500.4050, L503.6005, L501.5425, L100.0100 #### [facility] Laboratory [address] [place], [address] ALT [Catalytic activity/Vol] 12 U/L Low 16-61 [facility] Comment on above: Order Comment: 1 Y Performed By: #### L 503.6620, L500.4050, L503.6005, L501.5425, L100.0100 #### [facility] Laboratory [address] [place], [address] AST [Catalytic activity/Vol] 16 U/L Normal 15-37 [facility] Comment on above: Order Comment: 1 Y Performed By: #### L 503.6620, L500.4050, L503.6005, L501.5425, L100.0100 #### [facility] Laboratory [address] [place], [address] Bilirubin [Mass/Vol] 1.20 mg/dL High 0.20-1.00 [facility] Comment on above: Order Comment: 1 Y Result Comment: For patients on eltrombopag therapy, use of Dimension [place] TBIL is not recommended. Performed By: #### L 503.6620, L500.4050, L503.6005, L501.5425, L100.0100 #### [facility] Laboratory [address] [place], [address] BUN/CRE 43.7 RATIO High 10-20 [facility] Comment on above: Order Comment: 1 Y Performed By: #### L 503.6620, L500.4050, L503.6005, L501.5425, L100.0100 #### [facility] [address] [place], [address] CA,Total 8.6 mg/dL Normal 8.5-10.1 [facility] Comment on above: Order Comment: 1 Y Performed By: #### L 503.6620, L500.4050, L503.6005, L501.5425, L100.0100 #### [facility] [address] [place], [address] Chloride [Moles/Vol] 97 mmol/L Low 98-107 [facility] Comment on above: Order Comment: 1 Y Performed By: #### L 503.6620, L500.4050, L503.6005, L501.5425, L100.0100 #### [facility] [address] [place], [address] CO2 [Moles/Vol] 33.0 mmol/L High 21.0-32.0 [facility] Comment on above: Order Comment: 1 Y Performed By: #### L 503.6620, L500.4050, L503.6005, L501.5425, L100.0100 #### [facility] [address] [place], [address] Creatinine [Mass/Vol] 1.74 mg/dL High 0.70-1.30 [facility] Comment on above: Order Comment: 1 Y Result Comment: The validity of the calculated GFR GFRAA in patients over 70 years has not been determined. Clinical correlation is essential. Performed By: #### L 503.6620, L500.4050, L503.6005, L501.5425, L100.0100 #### [facility] [address] [place], [address] ECRCL 59.07 ml/min Normal [facility] Comment on above: Order Comment: 1 Y Performed By: #### L 503.6620, L500.4050, L503.6005, L501.5425, L100.0100 #### [facility] [address] [place], [address] EST GFR - AA 50 mL/min Low >60 [facility] Comment on above: Order Comment: 1 Y Result Comment: Afri can [facility] GFR Calc Performed By: #### L 503.6620, L500.4050, L503.6005, L501.5425, L100.0100 #### [facility] [address] [place], [address] GAP 8 Normal 5-15 [facility] Comment on above: Order Comment: 1 Y Performed By: #### L 503.6620, L500.4050, L503.6005, L501.5425, L100.0100 #### [facility] [address] [place], [address] GFR/1.73 sq M.predicted among non-blacks MDRD (S/P/Bld) [Vol rate/Area] 41 mL/min/{1.73_m2} Low >60 [facility] Comment on above: Order Comment: 1 Y Result Comment: Non- GFR Calc Performed By: #### L 503.6620, L500.4050, L503.6005, L501.5425, L100.0100 #### [facility] [address] [place], [address] Globulin (S) [Mass/Vol] 5.1 g/dL High 2.2-4.2 [facility] Comment on above: Order Comment: 1 Y Performed By: #### L 503.6620, L500.4050, L503.6005, L501.5425, L100.0100 #### [facility] [address] [place], [address] Glucose [Mass/Vol] 197 mg/dL High 74-106 [facility] Comment on above: Order Comment: 1 Y Result Comment: Fast ing Glucose result greater than or equal to 126 mg/dL suggests DIABETES MELLITUS per A.D.A. criteria. Performed By: #### L 503.6620, L500.4050, L503.6005, L501.5425, L100.0100 #### [facility] [address] [place], [address] Potassium [Moles/Vol] 4.4 mmol/L Normal 3.5-5.1 [facility] Comment on above: Order Comment: 1 Y Performed By: #### L 503.6620, L500.4050, L503.6005, L501.5425, L100.0100 #### [facility] [address] [place], [address] Sodium [Moles/Vol] 138 mmol/L Normal 136-145 [facility] Comment on above: Order Comment: 1 Y Performed By: #### L 503.6620, L500.4050, L503.6005, L501.5425, L100.0100 #### [facility] [address] [place], [address] T PROT 8.1 g/dL Normal 6.4-8.2 [facility] Comment on above: Order Comment: 1 Y Performed By: #### L 503.6620, L500.4050, L503.6005, L501.5425, L100.0100 #### [facility] [address] [place], [address] Urea nitrogen [Mass/Vol] 76 mg/dL High 7-18 [facility] Comment on above: Order Comment: 1 Y Performed By: #### L 503.6620, L500.4050, L503.6005, L501.5425, L100.0100 #### [facility] [address] [place], [address] Echo Complete W/ Contraston 03-06-2024 Echo Complete W/ Contrast [facility] [address] [place] [address] Echo Complete W/ Contrast 03/06/24 1109 MR#: [id number] Acct: [id number] Name: SHEREE MUNIZ Rep #: [id number] : 1955 68 From: Sofia Garg MD Attending Dr: Dr. Elver Bradley, DO Status : ADM IN Ordering Dr: Elver Bradley DO Date: 03/06/24 Location: [facility] Sex: M C Admitted: 03/06/24 Reason For [...] Date Dictated: 03/06/24 1109 Date Transcribed: 03/06/241621 Film Painter: Signed Normal [facility] Emergency Department Summary on 03-06-2024 Emergency Department Summary [facility] Medical Records Department [address] [place] [address] Emergency Department Summary 03/06/24 MR#: [id number] Acct: [id number] Name: SHEREE MUNIZ Rep #: [id number] : 1955 68 From: Tone Olivier MD [...] Prior similar symptoms: Yes Recent Illness/Hospitalization: [facility] Medical History Walking difficulty due to ankle [...] Delivery Meth (more content not included)... Normal [facility] H AND P Exam - Hospitaliston 03-06-2024 H&P Exam - Hospitalist [facility] Medical Records Department [address] [place] [address] H P Exam - Hospitalist 03/06/24 0944 MR#: [id number] Acct: [id number] Name: SHEREE MUNIZ Rep #: [id number] : 1955 68 From: Elver Bradley DO PCP: Dr. Dawson Olsen MD Status:ADM IN Location: [facility] [id number] HPI - General General Date of Admission: 03/06/24 Date of Service: 03/06/24 Chief Complaint: Worsening shortness of breath HPI Narrative SHEREE MUNIZ, is a 68 M who presented to [facility] ED on 03/06/2024 with worsening shortness of [...] time. Will be admitted for further management. [facility] Medical History Walking difficulty due to ankle [...] Respiratory Effo (more content not included)... Normal [facility] L501.4020on 03-06-2024 TROPONIN-I HS 73 pg/mL Normal 3.0-78.0 [facility] Comment on above: Result Comment: Mark og Note: New Test Units and Gender Specific Reference Ranges. For more information see Policy Stat Procedure [place] High Sensitivity Troponin (TNIH) and attachments. Performed By: #### L 9000.0800 #### [facility] [address] [place], [address] L501.5425on 03-06-2024 TROPONIN-I HS 75 pg/mL Normal 3.0-78.0 [facility] Comment on above: Order Comment: 1 Y Result Comment: Mark og Note: New Test Units and Gender Specific Reference Ranges. For more information see Policy Stat Procedure [place] High Sensitivity Troponin (TNIH) and attachments. Performed By: #### L 503.6620, L500.4050, L503.6005, L501.5425, L100.0100 #### [facility] [address] [place], [place], [address] Lactic Acidon 03-06-2024 Lactate [Moles/Vol] 0.7 mmol/L Normal 0.4-1.9 [facility] Comment on above: Order Comment: Y Performed By: #### L 503.6620, L500.4050, L503.6005, L501.5425, L100.0100 #### [facility] [address] [place], [place], [address] .Auto Diffon 08-19-2022 Basophil, Absolute 0.0 10 3/mcL Normal 0.0-0.3 [facility] ([place]) Comment on above: Performed By: #### G FR, CBC, ADIFF, BMP, ANEU ####[place] [address] [place] [address] Basophils/100 WBC (Bld) 1.0 % Normal 0.0-2.5 [facility] ([place] Comment on above: Performed By: #### G FR, CBC, ADIFF, BMP, ANEU ####[facility] [place] [address] Eosinophil, Absolute 0.1 10 3/mcL Normal 0.0-0.7 [facility] ([place]) Comment on above: Performed By: #### G FR, CBC, ADIFF, BMP, ANEU ####[place] [address] [place] [address] Eosinophils/100 WBC (Bld) 2.9 % Normal 0.0-6.0 [facility] ([place] Comment on above: Performed By: #### G FR, CBC, ADIFF, BMP, ANEU ####[address] [address] Lymphocyte, Absolute 0.6 10 3/mcL Low 0.9-4.3 [facility] ([place] Comment on above: Performed By: #### G FR, CBC, ADIFF, BMP, ANEU ####[address] [address] Lymphocytes/100 WBC (Bld) 16.1 % Low 20.0-40.0 [facility] ([place] Comment on above: Performed By: #### G FR, CBC, ADIFF, BMP, ANEU ####[address] [address] Monocyte, Absolute 0.4 10 3/mcL Normal 0.1-1.4 [facility] ([place] Comment on above: Performed By: #### G FR, CBC, ADIFF, BMP, ANEU ####[address] [address] Monocytes/100 WBC (Bld) 10.7 % Normal 2.0-13.0 [facility] ([place] Comment on above: Performed By: #### G FR, CBC, ADIFF, BMP, ANEU ####[address] [address] Neutrophils/100 WBC (Bld) 69.3 % Normal 50.0-75.0 [facility] ([place] Comment on above: Performed By: #### G FR, CBC, ADIFF, BMP, ANEU ####[address] [address] .GFRon 08-19-2022 GFR 35 ml/min/1.73sqm Normal [facility] ([place] Comment on above: Result Comment: GFR Population [...] #### G FR, CBC, ADIFF, BMP, ANEU ####[address] [address] GFR Non- 29 ml/min/1.73sqm Normal [facility] ([place] Comment on above: Result Comment: GFR Population [...] #### G FR, CBC, ADIFF, BMP, ANEU ####[place] [address] .NEUABSon 08-19-2022 Neutrophil, Absolute 2.6 10 3/mcL Normal 2.3-8.1 [facility] ([place] Comment on above: Performed By: #### G FR, CBC, ADIFF, BMP, ANEU ####[place] [address] BMPon 08-19-2022 BUN/Creatinine Ratio 39.8 ratio High 10.0-22.0 [facility] ([place]) Comment on above: Performed By: #### G FR, CBC, ADIFF, BMP, ANEU ####[place] [address] Calcium [Mass/Vol] 8.8 mg/dL Normal 8.7-10.4 [facility] ([place]) Comment on above: Performed By: #### G FR, CBC, ADIFF, BMP, ANEU ####[address] [address] Chloride [Moles/Vol] 102 mmol/L Normal 98-110 [facility] ([place] Comment on above: Performed By: #### G FR, CBC, ADIFF, BMP, ANEU ####[address] [address] CO2 [Moles/Vol] 28 mmol/L Normal 22-32 [facility] ([place] Comment on above: Performed By: #### G FR, CBC, ADIFF, BMP, ANEU ####[address] [address] Creatinine [Mass/Vol] 2.26 mg/dL High 0.60-1.40 [facility] ([place] Comment on above: Performed By: #### G FR, CBC, ADIFF, BMP, ANEU ####[address] [address] Electrolyte Balance 7.0 mEq/L Normal 4.0-15.0 [facility] ([place]) Comment on above: Performed By: #### G FR, CBC, ADIFF, BMP, ANEU ####[address] [address] Glucose [Mass/Vol] 160 mg/dL High 82-115 [facility] ([place] Comment on above: Performed By: #### G FR, CBC, ADIFF, BMP, ANEU ####[address] [address] Potassium [Moles/Vol] 4.1 mmol/L Normal 3.5-5.0 [facility] ([place] Comment on above: Performed By: #### G FR, CBC, ADIFF, BMP, ANEU ####[address] [address] Sodium [Moles/Vol] 137 mmol/L Normal 136-145 [facility] ([place] Comment on above: Performed By: #### G FR, CBC, ADIFF, BMP, ANEU ####[address] [address] Urea nitrogen [Mass/Vol] 90.0 mg/dL High 8.0-22.0 [facility] ([place] Comment on above: Performed By: #### G FR, CBC, ADIFF, BMP, ANEU ####[place] [address] CBCon 08-19-2022 Erythrocyte distribution width (RBC) [Ratio] 17.5 % High 11.5-15.5 [facility] ([place] Comment on above: Performed By: #### G FR, CBC, ADIFF, BMP, ANEU ####[place] [address] Hematocrit (Bld) [Volume fraction] 43.8 % Normal 40.0-52.0 [facility] ([place] Comment on above: Performed By: #### G FR, CBC, ADIFF, BMP, ANEU ####[place] [address] Hgb 13.9 G/dL Normal 13.0-17.5 [facility] ([place] Comment on above: Performed By: #### G FR, CBC, ADIFF, BMP, ANEU ####[place] [address] MCH (RBC) [Entitic mass] 28.2 pg Normal 27.0-33.0 [facility] ([place] Comment on above: Performed By: #### G FR, CBC, ADIFF, BMP, ANEU ####[place] [address] MCHC 31.7 G/dL Low 32.0-36.0 [facility] ([place] Comment on above: Performed By: #### G FR, CBC, ADIFF, BMP, ANEU ####[place] [address] MCV (RBC) [Entitic vol] 88.9 fL Normal 81.0-100.0 [facility] ([place] Comment on above: Performed By: #### G FR, CBC, ADIFF, BMP, ANEU ####[place] [address] Platelet 111 10 3/mcL Low 150-450 [facility] ([place] Comment on above: Performed By: #### G FR, CBC, ADIFF, BMP, ANEU ####[place] [address] [place] [address] Platelet mean volume (Bld) [Entitic vol] 9.5 fL Normal 6.4-10.5 [facility] ([place] Comment on above: Performed By: #### G FR, CBC, ADIFF, BMP, ANEU ####[place] [address] [place] [address] RBC 4.92 10 6/mcL Normal 4.50-6.00 [facility] ([place] Comment on above: Performed By: #### G FR, CBC, ADIFF, BMP, ANEU ####[place] [address] [place], [place] [address] WBC 3.7 10 3/mcL Low 4.5-10.8 [facility] ([place] Comment on above: Performed By: #### G FR, CBC, ADIFF, BMP, ANEU ####[place] [address] HBCABon 08-19-2022 Hep B Core Ab Negative Normal Negative [facility] ([place] Comment on above: Result Comment: No e vidence of current or past infection with Hepatitis B virus. Should recent infection be suspected, repeat testing may be considered 3-4 weeks after this draw. Performed By: [facility] [address] [place] [address] Battery Charger Tester: Lillian Jones III#: [id number] Performed By: #### H BSAG #### [place] [address] LABORATORYOrdered By: Skylar Becerra on 08-19-2022 Glucose [Mass/Vol] 159 mg/dL Invalid Interpretation Code 82 - 115 mg/dL [facility] Work Phone: LABORATORYOrdered By: Aspen Tay on 08-19-2022 Blood Glucose Testing Reason Routine (08/19/22 11:21 AM) [facility] Work Phone: Glucose [Mass/Vol] 208 mg/dL Invalid Interpretation Code 82 - 115 mg/dL [facility] Work Phone: LABORATORYOrdered By: Maria Ross on 08-19-2022 Blood Glucose Testing Reason Routine (08/19/22 8:12 AM) [facility] Work Phone: Glucose [Mass/Vol] 216 mg/dL Invalid Interpretation Code 82 - 115 mg/dL [facility] Work Phone: LABORATORYOrdered By: SYSTEM SYSTEM on [...] 08-19-2022 Magnesium [Mass/Vol] 2.4 mg/dL Normal 1.6-2.4 [facility] ([place] Comment on above: Performed By: #### M G ####[address] [address] .Auto Diffon 08-18-2022 Basophil, Absolute 0.0 10 3/mcL Normal 0.0-0.3 [facility] ([place]) Comment on above: Performed By: #### A DIFF, CBC, ANEU ####[address] [address] Basophils/100 WBC (Bld) 0.4 % Normal 0.0-2.5 [facility] ([place] Comment on above: Performed By: #### A DIFF, CBC, ANEU ####[address] [address] Eosinophil, Absolute 0.1 10 3/mcL Normal 0.0-0.7 [facility] ([place]) Comment on above: Performed By: #### A DIFF, CBC, ANEU ####[address] [address] Eosinophils/100 WBC (Bld) 3.0 % Normal 0.0-6.0 [facility] ([place] Comment on above: Performed By: #### A DIFF, CBC, ANEU ####[address] [address] Lymphocyte, Absolute 0.7 10 3/mcL Low 0.9-4.3 [facility] ([place] Comment on above: Performed By: #### A DIFF, CBC, ANEU ####[address] [address] Lymphocytes/100 WBC (Bld) 19.0 % Low 20.0-40.0 [facility] ([place] Comment on above: Performed By: #### A DIFF, CBC, ANEU ####[address] [address] Monocyte, Absolute 0.4 10 3/mcL Normal 0.1-1.4 [facility] ([place] Comment on above: Performed By: #### A DIFF, CBC, ANEU ####[address] [address] Monocytes/100 WBC (Bld) 11.6 % Normal 2.0-13.0 [facility] ([place] Comment on above: Performed By: #### A DIFF, CBC, ANEU ####[address] [address] Neutrophils/100 WBC (Bld) 66.0 % Normal 50.0-75.0 [facility] ([place] Comment on above: Performed By: #### A DIFF, CBC, ANEU ####[address] [address] .GFRon 08-18-2022 GFR 33 ml/min/1.73sqm Normal [facility] ([place]) Comment on above: Result Comment: GFR [...] meters Performed By: #### B MP, GFR ####[address] [address] GFR Non- 27 ml/min/1.73sqm Normal [facility] ([place] Comment on above: Result Comment: GFR Population [...] meters Performed By: #### B MP, GFR ####[address] [address] .NEUABSon 08-18-2022 Neutrophil, Absolute 2.5 10 3/mcL Normal 2.3-8.1 [facility] ([place]) Comment on above: Performed By: #### A DIFF, CBC, ANEU ####[place] [address] BMPon 08-18-2022 BUN/Creatinine Ratio 49.4 ratio High 10.0-22.0 [facility] ([place] Comment on above: Performed By: #### B MP, GFR ####[address] [address] Calcium [Mass/Vol] 9.2 mg/dL Normal 8.7-10.4 [facility] ([place] Comment on above: Performed By: #### B MP, GFR ####[address] [address] Chloride [Moles/Vol] 96 mmol/L Low 98-110 [facility] ([place] Comment on above: Performed By: #### B MP, GFR ####[address] [address] CO2 [Moles/Vol] 32 mmol/L Normal 22-32 [facility] ([place] Comment on above: Performed By: #### B MP, GFR ####[address] [address] Creatinine [Mass/Vol] 2.41 mg/dL High 0.60-1.40 [facility] ([place] Comment on above: Performed By: #### B MP, GFR ####[address] [address] Electrolyte Balance 8.0 mEq/L Normal 4.0-15.0 [facility] ([place] Comment on above: Performed By: #### B MP, GFR ####[address] [address] Glucose [Mass/Vol] 227 mg/dL High 82-115 [facility] ([place] Comment on above: Performed By: #### B MP, GFR ####[address] [address] Potassium [Moles/Vol] 4.2 mmol/L Normal 3.5-5.0 [facility] ([place] Comment on above: Performed By: #### B MP, GFR ####[address] [address] Sodium [Moles/Vol] 136 mmol/L Normal 136-145 [facility] ([place] Comment on above: Performed By: #### B MP, GFR ####[place] [address] Urea nitrogen [Mass/Vol] 119.0 mg/dL Critically abnormal 8.0-22.0 [facility] ([place] Comment on above: Performed By: #### B MP, GFR ####[address] [address] CBCon 08-18-2022 Erythrocyte distribution width (RBC) [Ratio] 17.7 % High 11.5-15.5 [facility] ([place] Comment on above: Performed By: #### A DIFF, CBC, ANEU ####[address] [address] Hematocrit (Bld) [Volume fraction] 44.2 % Normal 40.0-52.0 [facility] ([place] Comment on above: Performed By: #### A DIFF, CBC, ANEU ####[address] [address] Hgb 13.9 G/dL Normal 13.0-17.5 [facility] ([place] Comment on above: Performed By: #### A DIFF, CBC, ANEU ####[address] [address] MCH (RBC) [Entitic mass] 27.9 pg Normal 27.0-33.0 [facility] ([place] Comment on above: Performed By: #### A DIFF, CBC, ANEU ####[address] [address] MCHC 31.4 G/dL Low 32.0-36.0 [facility] ([place] Comment on above: Performed By: #### A DIFF, CBC, ANEU ####[place] [address] MCV (RBC) [Entitic vol] 88.8 fL Normal 81.0-100.0 [facility] ([place] Comment on above: Performed By: #### A DIFF, CBC, ANEU ####[place] [address] Platelet 120 10 3/mcL Low 150-450 [facility] ([place] Comment on above: Performed By: #### A DIFF, CBC, ANEU ####[place] [address] Platelet mean volume (Bld) [Entitic vol] 9.2 fL Normal 6.4-10.5 [facility] ([place] Comment on above: Performed By: #### A DIFF, CBC, ANEU ####[place] [address] RBC 4.98 10 6/mcL Normal 4.50-6.00 [facility] ([place] Comment on above: Performed By: #### A DIFF, CBC, ANEU ####[place] [address] WBC 3.8 10 3/mcL Low 4.5-10.8 [facility] ([place] Comment on above: Performed By: #### A DIFF, CBC, ANEU ####[place] [address] LABORATORYOrdered By: Lexie Guzman on 08-18-2022 Blood Glucose Testing Reason Routine (08/18/22 4:57 PM) [facility] Work Phone: LABORATORYOrdered By: SYSTEM SYSTEM on [...] Basophil, Absolute 0.0 10 3/mcL Normal 0.0-0.3 [facility] ([place] Comment on above: Performed By: #### B MP, CBC, GFR, ADIFF, ANEU ####[address] [address] Basophils/100 WBC (Bld) 0.7 % Normal 0.0-2.5 [facility] ([place] Comment on above: Performed By: #### B MP, CBC, GFR, ADIFF, ANEU ####[address] [address] Eosinophil, Absolute 0.1 10 3/mcL Normal 0.0-0.7 [facility] ([place] Comment on above: Performed By: #### B MP, CBC, GFR, ADIFF, ANEU ####[address] [address] Eosinophils/100 WBC (Bld) 2.0 % Normal 0.0-6.0 [facility] ([place] Comment on above: Performed By: #### B MP, CBC, GFR, ADIFF, ANEU ####[address] [address] Lymphocyte, Absolute 0.7 10 3/mcL Low 0.9-4.3 [facility] ([place] Comment on above: Performed By: #### B MP, CBC, GFR, ADIFF, ANEU ####[address] [address] Lymphocytes/100 WBC (Bld) 16.1 % Low 20.0-40.0 [facility] ([place] Comment on above: Performed By: #### B MP, CBC, GFR, ADIFF, ANEU ####[address] [address] Monocyte, Absolute 0.5 10 3/mcL Normal 0.1-1.4 [facility] ([place] Comment on above: Performed By: #### B MP, CBC, GFR, ADIFF, ANEU ####[address] [address] Monocytes/100 WBC (Bld) 10.9 % Normal 2.0-13.0 [facility] ([place] Comment on above: Performed By: #### B MP, CBC, GFR, ADIFF, ANEU ####[address] [address] Neutrophils/100 WBC (Bld) 70.3 % Normal 50.0-75.0 [facility] ([place] Comment on above: Performed By: #### B MP, CBC, GFR, ADIFF, ANEU ####[address] [address] .GFRon 08-17-2022 GFR 28 ml/min/1.73sqm Normal [facility] ([place] Comment on above: Result Comment: GFR Population [...] #### B MP, CBC, GFR, ADIFF, ANEU ####[address] [address] GFR Non- 23 ml/min/1.73sqm Normal [facility] ([place] Comment on above: Result Comment: GFR Population [...] #### B MP, CBC, GFR, ADIFF, ANEU ####[address] [address] .NEUABSon 08-17-2022 Neutrophil, Absolute 3.2 10 3/mcL Normal 2.3-8.1 [facility] ([place] Comment on above: Performed By: #### B MP, CBC, GFR, ADIFF, ANEU ####[place] [address] BGon 08-17-2022 Barometric Pressure 705 mmHg Normal [facility] ([place] Comment on above: Performed By: #### B G #### [place] [id number] Base excess Calc (Bld) [Moles/Vol] 4.4 mmol/L Normal [facility] ([place] Comment on above: Performed By: #### Ernesto G #### [place] [address] CO2 [Moles/Vol] 32.5 mmol/L High 22.0-30.0 [facility] ([place] Comment on above: Performed By: #### Ernesto G #### [place] [address] HCO3 (Bld) [Moles/Vol] 30.9 mmol/L High 21.0-29.0 [facility] ([place] Comment on above: Performed By: #### Ernesto G #### [place] [id number] Oxygen (Bld) [Partial pressure] 72.3 mm[Hg] Low 74.0-108.0 [facility] ([place] Comment on above: Performed By: #### Ernesto G #### [place] [address] Oxygen saturation in Blood 94.1 % Normal 92.0-96.0 [facility] ([place] Comment on above: Performed By: #### Ernesto G #### [place] [id number] pCO2 53.3 mmHg High 32.0-46.0 [facility] ([place] Comment on above: Performed By: #### Ernesto G #### [place] [id number] pH (Bld) 7.381 [pH] Normal 7.380-7.460 [facility] ([place] Comment on above: Performed By: #### B G #### [address] [address] BMPon 08-17-2022 BUN/Creatinine Ratio 29.8 ratio High 10.0-22.0 [facility] ([place] Comment on above: Performed By: #### B MP, CBC, GFR, ADIFF, ANEU ####[address] [address] [address] Calcium [Mass/Vol] 9.5 mg/dL Normal 8.7-10.4 [facility] ([place] Comment on above: Performed By: #### B MP, CBC, GFR, ADIFF, ANEU ####[address] [address] Chloride [Moles/Vol] 97 mmol/L Low 98-110 [facility] ([place]) Comment on above: Performed By: #### B MP, CBC, GFR, ADIFF, ANEU ####[address] [address] CO2 [Moles/Vol] 32 mmol/L Normal 22-32 [facility] ([place] Comment on above: Performed By: #### B MP, CBC, GFR, ADIFF, ANEU ####[address] [address] Creatinine [Mass/Vol] 2.72 mg/dL High 0.60-1.40 [facility] ([place] Comment on above: Performed By: #### B MP, CBC, GFR, ADIFF, ANEU ####[address] [address] Electrolyte Balance 7.0 mEq/L Normal 4.0-15.0 [facility] ([place] Comment on above: Performed By: #### B MP, CBC, GFR, ADIFF, ANEU ####[address] [address] Glucose [Mass/Vol] 141 mg/dL High 82-115 [facility] ([place] Comment on above: Performed By: #### B MP, CBC, GFR, ADIFF, ANEU ####[place] [address] Potassium [Moles/Vol] 4.1 mmol/L Normal 3.5-5.0 [facility] ([place] Comment on above: Performed By: #### B MP, CBC, GFR, ADIFF, ANEU ####[place] [address] Sodium [Moles/Vol] 136 mmol/L Normal 136-145 [facility] ([place] Comment on above: Performed By: #### B MP, CBC, GFR, ADIFF, ANEU ####[place] [address] Urea nitrogen [Mass/Vol] 81.0 mg/dL High 8.0-22.0 [facility] ([place] Comment on above: Performed By: #### B MP, CBC, GFR, ADIFF, ANEU ####[place] [address] CBCon 08-17-2022 Erythrocyte distribution width (RBC) [Ratio] 17.7 % High 11.5-15.5 [facility] ([place] Comment on above: Performed By: #### B MP, CBC, GFR, ADIFF, ANEU ####[place] [address] Hematocrit (Bld) [Volume fraction] 45.1 % Normal 40.0-52.0 [facility] ([place] Comment on above: Performed By: #### B MP, CBC, GFR, ADIFF, ANEU ####[place] [address] Hgb 14.1 G/dL Normal 13.0-17.5 [facility] ([place] Comment on above: Performed By: #### B MP, CBC, GFR, ADIFF, ANEU ####[place] [address] MCH (RBC) [Entitic mass] 28.0 pg Normal 27.0-33.0 [facility] ([place] Comment on above: Performed By: #### B MP, CBC, GFR, ADIFF, ANEU ####[place] [address] MCHC 31.3 G/dL Low 32.0-36.0 [facility] ([place] Comment on above: Performed By: #### B MP, CBC, GFR, ADIFF, ANEU ####[place] [address] MCV (RBC) [Entitic vol] 89.6 fL Normal 81.0-100.0 [facility] ([place] Comment on above: Performed By: #### B MP, CBC, GFR, ADIFF, ANEU ####[place] [address] Platelet 128 10 3/mcL Low 150-450 [facility] ([place] Comment on above: Performed By: #### B MP, CBC, GFR, ADIFF, ANEU ####[place] [address] Platelet mean volume (Bld) [Entitic vol] 8.7 fL Normal 6.4-10.5 [facility] ([place] Comment on above: Performed By: #### B MP, CBC, GFR, ADIFF, ANEU ####[place] [address] RBC 5.03 10 6/mcL Normal 4.50-6.00 [facility] ([place] Comment on above: Performed By: #### B MP, CBC, GFR, ADIFF, ANEU ####[place] [address] WBC 4.6 10 3/mcL Normal 4.5-10.8 [facility] ([place] Comment on above: Performed By: #### B MP, CBC, GFR, ADIFF, ANEU ####[place] [address] HBSABon 08-17-2022 Hep B Surf Ab 4.6 mIU/mL Low >=10.0 [facility] ([place] Comment on above: Result Comment: 0 to [...] Preparation. Performed By: #### A HBCOT, HBSAB ####[place] [id number] [place] [address] LABORATORYOrdered By: SYSTEM SYSTEM on 08-17-2022 HBV [...] 3-4 weeks after this draw. Performed By: [facility] [employer] [address] [place] [address] Battery Charger Tester: Lillian Jones III#: [id number] LABORATORYOrdered By: Sangeeta mukherjee on 08-17-2022 Barometric [...] Basophil, Absolute 0.0 10 3/mcL Normal 0.0-0.3 [facility] ([place]) Comment on above: Performed By: #### A DIFF, CBC, MG, BMP, ANEU, GFR ####[address] [address] Basophils/100 WBC (Bld) 0.6 % Normal 0.0-2.5 [facility] ([place] Comment on above: Performed By: #### A DIFF, CBC, MG, BMP, ANEU, GFR ####[address] [address] Eosinophil, Absolute 0.1 10 3/mcL Normal 0.0-0.7 [facility] ([place]) Comment on above: Performed By: #### A DIFF, CBC, MG, BMP, ANEU, GFR ####[address] [address] Eosinophils/100 WBC (Bld) 2.7 % Normal 0.0-6.0 [facility] ([place] Comment on above: Performed By: #### A DIFF, CBC, MG, BMP, ANEU, GFR ####[address] [address] Lymphocyte, Absolute 0.8 10 3/mcL Low 0.9-4.3 [facility] ([place]) Comment on above: Performed By: #### A DIFF, CBC, MG, BMP, ANEU, GFR ####[address] [address] Lymphocytes/100 WBC (Bld) 19.5 % Low 20.0-40.0 [facility] ([place] Comment on above: Performed By: #### A DIFF, CBC, MG, BMP, ANEU, GFR ####[address] [address] Monocyte, Absolute 0.5 10 3/mcL Normal 0.1-1.4 [facility] ([place]) Comment on above: Performed By: #### A DIFF, CBC, MG, BMP, ANEU, GFR ####[address] [address] Monocytes/100 WBC (Bld) 11.8 % Normal 2.0-13.0 [facility] ([place] Comment on above: Performed By: #### A DIFF, CBC, MG, BMP, ANEU, GFR ####[address] [address] Neutrophils/100 WBC (Bld) 65.4 % Normal 50.0-75.0 [facility] ([place] Comment on above: Performed By: #### A DIFF, CBC, MG, BMP, ANEU, GFR ####[address] [address] .GFRon 08-16-2022 GFR Non- 30 ml/min/1.73sqm Normal [facility] ([place] Comment on above: Result Comment: GFR Population [...] A DIFF, CBC, MG, BMP, ANEU, GFR ####[place] [address] GFR 37 ml/min/1.73sqm Normal [facility] ([place] Comment on above: Result Comment: GFR Population [...] A DIFF, CBC, MG, BMP, ANEU, GFR ####[address] [address] .NEUABSon 08-16-2022 Neutrophil, Absolute 2.5 10 3/mcL Normal 2.3-8.1 [facility] ([place] Comment on above: Performed By: #### A DIFF, CBC, MG, BMP, ANEU, GFR ####[address] [address] BMPon 08-16-2022 BUN/Creatinine Ratio 46.8 ratio High 10.0-22.0 [facility] ([place]) Comment on above: Performed By: #### A DIFF, CBC, MG, BMP, ANEU, GFR ####[place] [address] Calcium [Mass/Vol] 9.2 mg/dL Normal 8.7-10.4 [facility] ([place] Comment on above: Performed By: #### A DIFF, CBC, MG, BMP, ANEU, GFR ####[place] [address] Chloride [Moles/Vol] 95 mmol/L Low 98-110 [facility] ([place] Comment on above: Performed By: #### A DIFF, CBC, MG, BMP, ANEU, GFR ####[place] [address] CO2 [Moles/Vol] 36 mmol/L High 22-32 [facility] ([place] Comment on above: Performed By: #### A DIFF, CBC, MG, BMP, ANEU, GFR ####[place] [address] Creatinine [Mass/Vol] 2.18 mg/dL High 0.60-1.40 [facility] ([place] Comment on above: Performed By: #### A DIFF, CBC, MG, BMP, ANEU, GFR ####[place] [address] Electrolyte Balance 9.0 mEq/L Normal 4.0-15.0 [facility] ([place] Comment on above: Performed By: #### A DIFF, CBC, MG, BMP, ANEU, GFR ####[place] [address] Glucose [Mass/Vol] 124 mg/dL High 82-115 [facility] ([place] Comment on above: Performed By: #### A DIFF, CBC, MG, BMP, ANEU, GFR ####[place] [address] Potassium [Moles/Vol] 3.9 mmol/L Normal 3.5-5.0 [facility] ([place] Comment on above: Performed By: #### A DIFF, CBC, MG, BMP, ANEU, GFR ####[place] [address] Sodium [Moles/Vol] 140 mmol/L Normal 136-145 [facility] ([place] Comment on above: Performed By: #### A DIFF, CBC, MG, BMP, ANEU, GFR ####[place] [address] Urea nitrogen [Mass/Vol] 102.0 mg/dL Critically abnormal 8.0-22.0 [facility] ([place] Comment on above: Performed By: #### A DIFF, CBC, MG, BMP, ANEU, GFR ####[place] [address] CBCon 08-16-2022 Erythrocyte distribution width (RBC) [Ratio] 17.5 % High 11.5-15.5 [facility] ([place] Comment on above: Performed By: #### A DIFF, CBC, MG, BMP, ANEU, GFR ####[place] [address] Hematocrit (Bld) [Volume fraction] 45.2 % Normal 40.0-52.0 [facility] ([place] Comment on above: Performed By: #### A DIFF, CBC, MG, BMP, ANEU, GFR ####[place] [address] Hgb 14.2 G/dL Normal 13.0-17.5 [facility] ([place] Comment on above: Performed By: #### A DIFF, CBC, MG, BMP, ANEU, GFR ####[place] [address] MCH (RBC) [Entitic mass] 28.1 pg Normal 27.0-33.0 [facility] ([place] Comment on above: Performed By: #### A DIFF, CBC, MG, BMP, ANEU, GFR ####[place] [address] MCHC 31.3 G/dL Low 32.0-36.0 [facility] ([place] Comment on above: Performed By: #### A DIFF, CBC, MG, BMP, ANEU, GFR ####[place] [address] MCV (RBC) [Entitic vol] 89.8 fL Normal 81.0-100.0 [facility] ([place] Comment on above: Performed By: #### A DIFF, CBC, MG, BMP, ANEU, GFR ####[place] [address] Platelet 141 10 3/mcL Low 150-450 [facility] ([place] Comment on above: Performed By: #### A DIFF, CBC, MG, BMP, ANEU, GFR ####[place] [address] Platelet mean volume (Bld) [Entitic vol] 8.7 fL Normal 6.4-10.5 [facility] ([place] Comment on above: Performed By: #### A DIFF, CBC, MG, BMP, ANEU, GFR ####[place] [address] RBC 5.03 10 6/mcL Normal 4.50-6.00 [facility] ([place] Comment on above: Performed By: #### A DIFF, CBC, MG, BMP, ANEU, GFR ####[place] [address] WBC 3.8 10 3/mcL Low 4.5-10.8 [facility] ([place] Comment on above: Performed By: #### A DIFF, CBC, MG, BMP, ANEU, GFR ####[place] [address] LABORATORYOrdered By: SYSTEM SYSTEM on 08-16-2022 Magnesium [Mass/Vol] 2.3 mg/dL Invalid Interpretation Code 1.6 - 2.4 mg/dL ADM SS MGon 08-16-2022 Magnesium [Mass/Vol] 2.3 mg/dL Normal 1.6-2.4 [facility] ([place]) Comment on above: Performed By: #### A DIFF, CBC, MG, BMP, ANEU, GFR ####[address] [address] .Auto Diffon 08-15-2022 Basophil, Absolute 0.0 10 3/mcL Normal 0.0-0.3 [facility] ([place]) Comment on above: Performed By: #### M G, BMP, GFR #### [address] [address] Basophils/100 WBC (Bld) 0.5 % Normal 0.0-2.5 [facility] ([place] Comment on above: Performed By: #### M G, BMP, GFR #### [address] [address] Eosinophil, Absolute 0.1 10 3/mcL Normal 0.0-0.7 [facility] ([place]) Comment on above: Performed By: #### M G, BMP, GFR #### [address] [address] Eosinophils/100 WBC (Bld) 2.4 % Normal 0.0-6.0 [facility] ([place] Comment on above: Performed By: #### M G, BMP, GFR #### [address] [address] Lymphocyte, Absolute 0.7 10 3/mcL Low 0.9-4.3 [facility] ([place]) Comment on above: Performed By: #### M G, BMP, GFR #### [address] [address] Lymphocytes/100 WBC (Bld) 17.1 % Low 20.0-40.0 [facility] ([place] Comment on above: Performed By: #### M G, BMP, GFR #### [address] [address] Monocyte, Absolute 0.4 10 3/mcL Normal 0.1-1.4 [facility] ([place]) Comment on above: Performed By: #### M G, BMP, GFR #### [address] [address] Monocytes/100 WBC (Bld) 10.2 % Normal 2.0-13.0 [facility] ([place] Comment on above: Performed By: #### Jacquelin G, BMP, GFR #### [address] [address] Neutrophils/100 WBC (Bld) 69.8 % Normal 50.0-75.0 [facility] ([place] Comment on above: Performed By: #### Jacquelin G, BMP, GFR #### [address] [address] .GFRon 08-15-2022 GFR Non- 36 ml/min/1.73sqm Normal [facility] ([place] Comment on above: Result Comment: GFR Population [...] By: #### Jacquelin G, BMP, GFR #### [address] [address] GFR 44 ml/min/1.73sqm Normal [facility] ([place] Comment on above: Result Comment: GFR Population [...] By: #### Jacquelin Pena BMP, GFR #### [address] [address] .NEUABSon 08-15-2022 Neutrophil, Absolute 2.8 10 3/mcL Normal 2.3-8.1 [facility] ([place]) Comment on above: Performed By: #### Jacquelin Pena, BMP, GFR #### [address] [address] BMPon 08-15-2022 BUN/Creatinine Ratio 36.6 ratio High 10.0-22.0 [facility] ([place]) Comment on above: Performed By: #### Jacquelin Pena BMP, GFR #### [place] [id number] Calcium [Mass/Vol] 9.3 mg/dL Normal 8.7-10.4 [facility] ([place] Comment on above: Performed By: #### Jacquelin Pena BMP, GFR #### [place] [id number] Chloride [Moles/Vol] 95 mmol/L Low 98-110 [facility] ([place] Comment on above: Performed By: #### Jacquelin Pena BMP, GFR #### [place] [address] CO2 [Moles/Vol] 36 mmol/L High 22-32 [facility] ([place] Comment on above: Performed By: #### Jacquelin Pena, BMP, GFR #### [place] [address] Creatinine [Mass/Vol] 1.86 mg/dL High 0.60-1.40 [facility] ([place] Comment on above: Performed By: #### Jacquelin Pena, BMP, GFR #### [place] [id number] Electrolyte Balance 7.0 mEq/L Normal 4.0-15.0 [facility] ([place] Comment on above: Performed By: #### Jacquelin Pena, BMP, GFR #### [place] [id number] Glucose [Mass/Vol] 140 mg/dL High 82-115 [facility] ([place] Comment on above: Performed By: #### Jacquelin Pena BMP, GFR #### [place] [id number] Potassium [Moles/Vol] 3.8 mmol/L Normal 3.5-5.0 [facility] ([place] Comment on above: Performed By: #### Jacquelin Pena, BMP, GFR #### [place] [id number] Sodium [Moles/Vol] 138 mmol/L Normal 136-145 [facility] ([place] Comment on above: Performed By: #### Jacquelin Pena, BMP, GFR #### [place] [address] Urea nitrogen [Mass/Vol] 68.0 mg/dL High 8.0-22.0 [facility] ([place] Comment on above: Performed By: #### Jacquelin Pena BMP, GFR #### [place] [address] CBCon 08-15-2022 Erythrocyte distribution width (RBC) [Ratio] 17.4 % High 11.5-15.5 [facility] ([place] Comment on above: Performed By: #### Jacquelin Pena BMP, GFR #### [place] [address] Hematocrit (Bld) [Volume fraction] 44.3 % Normal 40.0-52.0 [facility] ([place] Comment on above: Performed By: #### Jacquelin Pena BMP, GFR #### [place] [address] Hgb 14.1 G/dL Normal 13.0-17.5 [facility] ([place] Comment on above: Performed By: #### Jacquelin Pena BMP, GFR #### [place] [id number] MCH (RBC) [Entitic mass] 28.6 pg Normal 27.0-33.0 [facility] ([place] Comment on above: Performed By: #### Jacquelin Pena, BMP, GFR #### [place] [address] MCHC 31.9 G/dL Low 32.0-36.0 [facility] ([place] Comment on above: Performed By: #### ROSALIA Andrews, GFR #### [place] [id number] MCV (RBC) [Entitic vol] 89.7 fL Normal 81.0-100.0 [facility] ([place] Comment on above: Performed By: #### Jacquelin Pena, BMP, GFR #### [place] [address] Platelet 149 10 3/mcL Low 150-450 [facility] ([place] Comment on above: Performed By: #### Jacquelin Pena, BMP, GFR #### [place] [address] Platelet mean volume (Bld) [Entitic vol] 8.3 fL Normal 6.4-10.5 [facility] ([place] Comment on above: Performed By: #### Jacquelin Pena BMP, GFR #### [place] [address] RBC 4.94 10 6/mcL Normal 4.50-6.00 [facility] ([place] Comment on above: Performed By: #### ROSALIA Andrews, GFR #### [place] [address] WBC 4.1 10 3/mcL Low 4.5-10.8 [facility] ([place] Comment on above: Performed By: #### Jacquelin Pena BMP, GFR #### [place] [address] LABORATORYOrdered By: SYSTEM SYSTEM on 08-15-2022 Magnesium [Mass/Vol] 2.4 mg/dL Invalid Interpretation Code 1.6 - 2.4 mg/dL ADM SS MGon 08-15-2022 Magnesium [Mass/Vol] 2.4 mg/dL Normal 1.6-2.4 [facility] ([place]) Comment on above: Performed By: #### Jacquelin Pnea BMP, GFR #### [place] [address] .Auto Diffon 08-14-2022 Basophil, Absolute 0.0 10 3/mcL Normal 0.0-0.3 [facility] ([place]) Comment on above: Performed By: #### G FR, CBC, MG, BMP, ANEU, ADIFF ####[address] [address] Basophils/100 WBC (Bld) 0.8 % Normal 0.0-2.5 [facility] ([place] Comment on above: Performed By: #### G FR, CBC, MG, BMP, ANEU, ADIFF ####[address] [address] Eosinophil, Absolute 0.1 10 3/mcL Normal 0.0-0.7 [facility] ([place] Comment on above: Performed By: #### G FR, CBC, MG, BMP, ANEU, ADIFF ####[address] [address] Eosinophils/100 WBC (Bld) 2.4 % Normal 0.0-6.0 [facility] ([place] Comment on above: Performed By: #### G FR, CBC, MG, BMP, ANEU, ADIFF ####[address] [address] Lymphocyte, Absolute 0.6 10 3/mcL Low 0.9-4.3 [facility] ([place] Comment on above: Performed By: #### G FR, CBC, MG, BMP, ANEU, ADIFF ####[address] [address] Lymphocytes/100 WBC (Bld) 16.5 % Low 20.0-40.0 [facility] [place] Comment on above: Performed By: #### G FR, CBC, MG, BMP, ANEU, ADIFF ####[address] [address] Monocyte, Absolute 0.3 10 3/mcL Normal 0.1-1.4 [facility] ([place]) Comment on above: Performed By: #### G FR, CBC, MG, BMP, ANEU, ADIFF ####[address] [address] Monocytes/100 WBC (Bld) 9.3 % Normal 2.0-13.0 [facility] ([place] Comment on above: Performed By: #### G FR, CBC, MG, BMP, ANEU, ADIFF ####[address] [address] Neutrophils/100 WBC (Bld) 71.0 % Normal 50.0-75.0 [facility] [place] Comment on above: Performed By: #### G FR, CBC, MG, BMP, ANEU, ADIFF ####[address] [address] .GFRon 08-14-2022 GFR Non- 39 ml/min/1.73sqm Normal [facility] ([place] Comment on above: Result Comment: GFR Population [...] G FR, CBC, MG, BMP, ANEU, ADIFF ####[address] [address] GFR 47 ml/min/1.73sqm Normal [facility] ([place] Comment on above: Result Comment: GFR Population [...] G FR, CBC, MG, BMP, ANEU, ADIFF ####[place] [address] .NEUABSon 08-14-2022 Neutrophil, Absolute 2.7 10 3/mcL Normal 2.3-8.1 [facility] ([place]) Comment on above: Performed By: #### G FR, CBC, MG, BMP, ANEU, ADIFF ####[place] [address] BMPon 08-14-2022 BUN/Creatinine Ratio 34.3 ratio High 10.0-22.0 [facility] ([place]) Comment on above: Performed By: #### G FR, CBC, MG, BMP, ANEU, ADIFF ####[place] [address] Calcium [Mass/Vol] 9.3 mg/dL Normal 8.7-10.4 [facility] ([place] Comment on above: Performed By: #### G FR, CBC, MG, BMP, ANEU, ADIFF ####[place] [address] Chloride [Moles/Vol] 98 mmol/L Normal 98-110 [facility] ([place]) Comment on above: Performed By: #### G FR, CBC, MG, BMP, ANEU, ADIFF ####[place] [address] CO2 [Moles/Vol] 36 mmol/L High 22-32 [facility] ([place] Comment on above: Performed By: #### G FR, CBC, MG, BMP, ANEU, ADIFF ####[place] [address] Creatinine [Mass/Vol] 1.75 mg/dL High 0.60-1.40 [facility] ([place] Comment on above: Performed By: #### G FR, CBC, MG, BMP, ANEU, ADIFF ####[place] [address] Electrolyte Balance 5.0 mEq/L Normal 4.0-15.0 [facility] ([place] Comment on above: Performed By: #### G FR, CBC, MG, BMP, ANEU, ADIFF ####[place] [address] Glucose [Mass/Vol] 108 mg/dL Normal 82-115 [facility] ([place] Comment on above: Performed By: #### G FR, CBC, MG, BMP, ANEU, ADIFF ####[place] [address] Potassium [Moles/Vol] 3.9 mmol/L Normal 3.5-5.0 [facility] ([place] Comment on above: Performed By: #### G FR, CBC, MG, BMP, ANEU, ADIFF ####[place] [address] Sodium [Moles/Vol] 139 mmol/L Normal 136-145 [facility] ([place] Comment on above: Performed By: #### G FR, CBC, MG, BMP, ANEU, ADIFF ####[place] [address] Urea nitrogen [Mass/Vol] 60.0 mg/dL High 8.0-22.0 [facility] ([place] Comment on above: Performed By: #### G FR, CBC, MG, BMP, ANEU, ADIFF ####[place] [address] CBCon 08-14-2022 Erythrocyte distribution width (RBC) [Ratio] 17.6 % High 11.5-15.5 [facility] [place] Comment on above: Performed By: #### G FR, CBC, MG, BMP, ANEU, ADIFF ####[place] [address] Hematocrit (Bld) [Volume fraction] 44.7 % Normal 40.0-52.0 [facility] [place] Comment on above: Performed By: #### G FR, CBC, MG, BMP, ANEU, ADIFF ####[place] [address] Hgb 14.1 G/dL Normal 13.0-17.5 [facility] [place] Comment on above: Performed By: #### G FR, CBC, MG, BMP, ANEU, ADIFF ####[place] [address] MCH (RBC) [Entitic mass] 28.4 pg Normal 27.0-33.0 [facility] [place] Comment on above: Performed By: #### G FR, CBC, MG, BMP, ANEU, ADIFF ####[place] [address] MCHC 31.4 G/dL Low 32.0-36.0 [facility] [place] Comment on above: Performed By: #### G FR, CBC, MG, BMP, ANEU, ADIFF ####[place] [address] MCV (RBC) [Entitic vol] 90.3 fL Normal 81.0-100.0 [facility] [place] Comment on above: Performed By: #### G FR, CBC, MG, BMP, ANEU, ADIFF ####[place] [address] Platelet 149 10 3/mcL Low 150-450 [facility] [place] Comment on above: Performed By: #### G FR, CBC, MG, BMP, ANEU, ADIFF ####[place] [address] Platelet mean volume (Bld) [Entitic vol] 8.0 fL Normal 6.4-10.5 [facility] [place] Comment on above: Performed By: #### G FR, CBC, MG, BMP, ANEU, ADIFF ####[place] [address] RBC 4.95 10 6/mcL Normal 4.50-6.00 [facility] [place] Comment on above: Performed By: #### G FR, CBC, MG, BMP, ANEU, ADIFF ####[place] [address] WBC 3.7 10 3/mcL Low 4.5-10.8 [facility] [place] Comment on above: Performed By: #### G FR, CBC, MG, BMP, ANEU, ADIFF ####[address] [address] MGon 08-14-2022 Magnesium [Mass/Vol] 2.4 mg/dL Normal 1.6-2.4 [facility] ([place]) Comment on above: Performed By: #### G FR, CBC, MG, BMP, ANEU, ADIFF ####[place] [address] .Auto Diffon 08-13-2022 Basophil, Absolute 0.0 10 3/mcL Normal 0.0-0.3 [facility] ([place] Comment on above: Performed By: #### A DIFF, ANEU, CBC ####[place] [address] Basophils/100 WBC (Bld) 0.7 % Normal 0.0-2.5 [facility] [place] Comment on above: Performed By: #### A DIFF, ANEU, CBC ####[place] [address] Eosinophil, Absolute 0.1 10 3/mcL Normal 0.0-0.7 [facility] ([place] Comment on above: Performed By: #### A DIFF, ANEU, CBC ####[place] [address] Eosinophils/100 WBC (Bld) 2.1 % Normal 0.0-6.0 [facility] [place] Comment on above: Performed By: #### A DIFF, ANEU, CBC ####[place] [address] Lymphocyte, Absolute 0.4 10 3/mcL Low 0.9-4.3 [facility] ([place] Comment on above: Performed By: #### A DIFF, ANEU, CBC ####[place] [address] Lymphocytes/100 WBC (Bld) 7.9 % Low 20.0-40.0 [facility] ([place]) Comment on above: Performed By: #### A DIFF, ANEU, CBC ####[id number] [place] [address] Monocyte, Absolute 0.3 10 3/mcL Normal 0.1-1.4 [facility] ([place]) Comment on above: Performed By: #### A DIFF, ANEU, CBC ####[address] [address] Monocytes/100 WBC (Bld) 6.4 % Normal 2.0-13.0 [facility] ([place]) Comment on above: Performed By: #### A DIFF, ANEU, CBC ####[address] [address] Neutrophils/100 WBC (Bld) 82.9 % High 50.0-75.0 [facility] ([place] Comment on above: Performed By: #### A DIFF, ANEU, CBC ####[address] [address] .GFRon 08-13-2022 GFR 46 ml/min/1.73sqm Normal [facility] [place] Comment on above: Result Comment: GFR Population [...] By: #### M G, BMP, GFR #### [address] [address] GFR Non- 38 ml/min/1.73sqm Normal [facility] ([place]) Comment on above: Result Comment: GFR [...] By: #### M G, BMP, GFR #### [place] [address] .NEUABSon 08-13-2022 Neutrophil, Absolute 3.7 10 3/mcL Normal 2.3-8.1 [facility] ([place]) Comment on above: Performed By: #### A DIFF, ANEU, CBC ####[place] [address] BMPon 08-13-2022 BUN/Creatinine Ratio 40.4 ratio High 10.0-22.0 [facility] ([place]) Comment on above: Performed By: #### Jacquelin G, BMP, GFR #### [place] [address] Calcium [Mass/Vol] 9.4 mg/dL Normal 8.7-10.4 [facility] ([place] Comment on above: Performed By: #### Jacquelin G, BMP, GFR #### [place] [address] Chloride [Moles/Vol] 97 mmol/L Low 98-110 [facility] ([place]) Comment on above: Performed By: #### M G, BMP, GFR #### [place] [address] CO2 [Moles/Vol] 38 mmol/L High 22-32 [facility] ([place] Comment on above: Performed By: #### M G, BMP, GFR #### [place] [address] Creatinine [Mass/Vol] 1.78 mg/dL High 0.60-1.40 [facility] ([place] Comment on above: Performed By: #### M G, BMP, GFR #### [place] [address] Electrolyte Balance 4.0 mEq/L Normal 4.0-15.0 [facility] ([place]) Comment on above: Performed By: #### Jacquelin Pena BMP, GFR #### [address] [address] Glucose [Mass/Vol] 123 mg/dL High 82-115 [facility] ([place] Comment on above: Performed By: #### Jacquelin Pena, BMP, GFR #### [address] [address] Potassium [Moles/Vol] 4.1 mmol/L Normal 3.5-5.0 [facility] ([place] Comment on above: Performed By: #### Jacquelin Pena BMP, GFR #### [address] [address] Sodium [Moles/Vol] 139 mmol/L Normal 136-145 [facility] ([place] Comment on above: Performed By: #### Jacquelin Pena BMP, GFR #### [address] [address] Urea nitrogen [Mass/Vol] 72.0 mg/dL High 8.0-22.0 [facility] ([place] Comment on above: Performed By: #### Jacquelin Pena BMP, GFR #### [address] [address] CBCon 08-13-2022 Erythrocyte distribution width (RBC) [Ratio] 17.2 % High 11.5-15.5 [facility] ([place] Comment on above: Performed By: #### A DIFF, ANEU, CBC ####[address] [address] Hematocrit (Bld) [Volume fraction] 46.0 % Normal 40.0-52.0 [facility] [place] Comment on above: Performed By: #### A DIFF, ANEU, CBC ####[address] [address] Hgb 14.4 G/dL Normal 13.0-17.5 [facility] ([place] Comment on above: Performed By: #### A DIFF, ANEU, CBC ####[place] [address] MCH (RBC) [Entitic mass] 28.3 pg Normal 27.0-33.0 [facility] ([place] Comment on above: Performed By: #### A TEQUILA HOLMAN, CBC ####[place] [address] MCHC 31.3 G/dL Low 32.0-36.0 [facility] ([place] Comment on above: Performed By: #### A TEQUILA HOLMAN, CBC ####[place] [address] MCV (RBC) [Entitic vol] 90.5 fL Normal 81.0-100.0 [facility] ([place] Comment on above: Performed By: #### A TEQUILA HOLMAN, CBC ####[place] [address] Platelet 174 10 3/mcL Normal 150-450 [facility] ([place] Comment on above: Performed By: #### A TEQUILA HOLMAN, CBC ####[place] [address] Platelet mean volume (Bld) [Entitic vol] 8.2 fL Normal 6.4-10.5 [facility] ([place] Comment on above: Performed By: #### A TEQUILA HOLMAN, CBC ####[place] [address] RBC 5.08 10 6/mcL Normal 4.50-6.00 [facility] ([place] Comment on above: Performed By: #### A TEQUILA HOLMAN, CBC ####[place] [address] WBC 4.5 10 3/mcL Normal 4.5-10.8 [facility] ([place] Comment on above: Performed By: #### A DIFF ANEU, CBC ####[place] [address] HEPACon 08-13-2022 Hep A IgM Ab Non-Reactive Normal Non-Reactiv e [facility] [place] Comment on above: Performed By: #### M G, BMP, GFR #### [place] [address] Hep A IgM Ab Int [facility] ([place] Comment on above: Result Comment: No s erological evidence of a current Hepatitis A infection. See Interp Performed By: #### ROSALIA Andrews, GFR #### [place] [address] Hep B Core IgM Ab Non-Reactive Normal Non-Reacti v e [facility] [place] Comment on above: Performed By: #### ROSALIA Andrews, GFR #### [place] [address] Hep B Core IgM Ab Int [facility] ([place] Comment on above: Result Comment: Samp les with a value < 0.80 Index are considered nonreactive (negative) for IgM antibodies to hepatitis B core antigen. See Interp Performed By: #### ROSALIA Andrews, GFR #### [place] [address] Hep B Surf Ag Non-Reactive Normal Non-Reactiv [facility] ([place] Comment on above: Performed By: #### ROSALIA Andrews, GFR #### [place] [address] Hep C Ab Non-Reactive Normal Non-Reactiv [facility] ([place] Comment on above: Performed By: #### ROSALIA Andrews, GFR #### [place] [address] Hep C Ab Int [facility] ([place] Comment on above: Result Comment: Nonr eactive: Samples with a value < 0.80 are considered nonreactive (negative) for antibodies to HCV. A negative test result does not exclude the possibility of exposure to or infection with HCV. HCV antibodies may be undetectable in some stages of the infection and in some clinical conditions. See Interp Performed By: #### ROSALIA Andrews, GFR #### [place] [address] LABORATORYOrdered By: Jeanette Easton on 08-13-2022 HAV [...] 08-13-2022 Magnesium [Mass/Vol] 2.7 mg/dL High 1.6-2.4 [facility] ([place]) Comment on above: Performed By: #### M Jean, BMP, GFR #### [address] [address] .GFRon 08-12-2022 GFR 34 ml/min/1.73sqm Normal [facility] ([place] Comment on above: Result Comment: GFR Population [...] By: #### M G, BMP, GFR #### [address] [address] GFR Non- 28 ml/min/1.73sqm Normal [facility] ([place] Comment on above: Result Comment: GFR Population [...] Performed By: #### ROSALIA Andrews, GFR #### [address] [address] BGon 08-12-2022 Barometric Pressure 722 mmHg Normal [facility] ([place] Comment on above: Performed By: #### ROSALIA Andrews, GFR #### [address] [address] Base excess Calc (Bld) [Moles/Vol] 7.5 mmol/L Normal [facility] ([place] Comment on above: Performed By: #### ROSALIA Andrews, GFR #### [address] [address] CO2 [Moles/Vol] 38.3 mmol/L High 22.0-30.0 [facility] ([place] Comment on above: Performed By: #### ROSALIA Andrews, GFR #### [address] [address] HCO3 (Bld) [Moles/Vol] 36.1 mmol/L High 21.0-29.0 [facility] ([place] Comment on above: Performed By: #### ROSALIA Andrews, GFR #### [address] [address] Oxygen (Bld) [Partial pressure] 73.6 mm[Hg] Low 74.0-108.0 [facility] [place] Comment on above: Performed By: #### M G, BMP, GFR #### [address] [address] Oxygen saturation in Blood 93.6 % Normal 92.0-96.0 [facility] [place] Comment on above: Performed By: #### Jacquelin Pena BMP, GFR #### [address] [address] pCO2 69.0 mmHg Critically abnormal 32.0-46.0 [facility] [place] Comment on above: Performed By: #### Jacquelin Pena BMP, GFR #### [address] [address] pH (Bld) 7.337 [pH] Low 7.380-7.460 [facility] [place] Comment on above: Performed By: #### Jacquelin Pena BMP, GFR #### [address] [address] BMPon 08-12-2022 BUN/Creatinine Ratio 38.7 ratio High 10.0-22.0 [facility] ([place]) Comment on above: Performed By: #### Jacquelin Pena BMP, GFR #### [address] [address] Calcium [Mass/Vol] 8.8 mg/dL Normal 8.7-10.4 [facility] ([place] Comment on above: Performed By: #### Jacquelin Pena BMP, GFR #### [address] [address] Chloride [Moles/Vol] 99 mmol/L Normal 98-110 [facility] ([place] Comment on above: Performed By: #### Jacquelin Pena BMP, GFR #### [address] [address] CO2 [Moles/Vol] 36 mmol/L High 22-32 [facility] [place] Comment on above: Performed By: #### Jacquelin Pena BMP, GFR #### [address] [address] Creatinine [Mass/Vol] 2.35 mg/dL High 0.60-1.40 [facility] [place] Comment on above: Performed By: #### Jacquelin Pena, BMP, GFR #### [address] [address] Electrolyte Balance 5.0 mEq/L Normal 4.0-15.0 [facility] ([place] Comment on above: Performed By: #### Jacquelin Pena, BMP, GFR #### [address] [address] Glucose [Mass/Vol] 100 mg/dL Normal 82-115 [facility] ([place] Comment on above: Performed By: #### Jacquelin Pena, BMP, GFR #### [address] [address] Potassium [Moles/Vol] 4.7 mmol/L Normal 3.5-5.0 [facility] [place] Comment on above: Performed By: #### Jacquelin Pena, BMP, GFR #### [address] [address] Sodium [Moles/Vol] 140 mmol/L Normal 136-145 [facility] ([place] Comment on above: Performed By: #### Jacquelin Pena, BMP, GFR #### [address] [address] Urea nitrogen [Mass/Vol] 91.0 mg/dL High 8.0-22.0 [facility] [place] Comment on above: Performed By: #### Jacquelin Pena, BMP, GFR #### [address] [address] LABORATORYOrdered By: Sangeeta mukherjee on 08-12-2022 Barometric [...] 08-12-2022 Magnesium [Mass/Vol] 2.9 mg/dL High 1.6-2.4 [facility] ([place]) Comment on above: Performed By: #### ROSALIA Andrews, GFR #### [address] [address] US ABDOMEN FOR ASCITESon US ABDOMEN FOR ASCITES ORIGINAL HISTORY: Ascites COMPARISON: No FINDINGS: No ascites is seen. IMPRESSION: Negative. Interpreted by: Shamika Gonsales MD Preliminary Report By: Shamika Gonsales MD Electronically signed By Shamika Gonsales MD Dictated Date: 08/12/2022 1:59:23 PM Prelim Date: 08/12/2022 1:59:48 PM Sign Date: 08/12/2022 1:59:48 PM Ordering Provider: ROLAND Moreno [facility] ([place] .Auto Diffon 08-11-2022 Basophil, Absolute 0.0 10 3/mcL Normal 0.0-0.3 [facility] ([place]) Comment on above: Performed By: #### ROSALIA Andrews, GFR #### [address] [address] Basophils/100 WBC (Bld) 0.3 % Normal 0.0-2.5 [facility] ([place] Comment on above: Performed By: #### ROSALIA Andrews, GFR #### [address] [address] Eosinophil, Absolute 0.0 10 3/mcL Normal 0.0-0.7 [facility] ([place]) Comment on above: Performed By: #### ROSALIA Andrews, GFR #### [address] [address] Eosinophils/100 WBC (Bld) 0.9 % Normal 0.0-6.0 [facility] ([place] Comment on above: Performed By: #### ROSALIA Andrews, GFR #### [address] [address] Lymphocyte, Absolute 0.3 10 3/mcL Low 0.9-4.3 [facility] ([place]) Comment on above: Performed By: #### Jacquelin Pena BMP, GFR #### [address] [address] Lymphocytes/100 WBC (Bld) 5.9 % Low 20.0-40.0 [facility] ([place]) Comment on above: Performed By: #### Jacquelin Pena BMP, GFR #### [address] [address] Monocyte, Absolute 0.3 10 3/mcL Normal 0.1-1.4 [facility] ([place]) Comment on above: Performed By: #### ROSALIA Andrews, GFR #### [address] [address] Monocytes/100 WBC (Bld) 6.7 % Normal 2.0-13.0 [facility] [place] Comment on above: Performed By: #### Jacquelin Pena BMP, GFR #### [address] [address] Neutrophils/100 WBC (Bld) 86.2 % High 50.0-75.0 [facility] [place] Comment on above: Performed By: #### ROSALIA Andrews, GFR #### [address] [address] .GFRon 08-11-2022 GFR Non- 23 ml/min/1.73sqm Normal [facility] ([place] Comment on above: Result Comment: GFR Population [...] By: #### Jacquelin Pena BMP, GFR #### [address] [address] GFR 27 ml/min/1.73sqm Normal [facility] ([place] Comment on above: Result Comment: GFR Population [...] By: #### Jacquelin Pena BMP, GFR #### [address] [address] .NEUABSon 08-11-2022 Neutrophil, Absolute 4.4 10 3/mcL Normal 2.3-8.1 [facility] ([place] Comment on above: Performed By: #### Jacquelin Pena BMP, GFR #### [address] [address] BMPon 08-11-2022 BUN/Creatinine Ratio 31.8 ratio High 10.0-22.0 [facility] ([place]) Comment on above: Performed By: #### Jacquelin Pena BMP, GFR #### [address] [address] Calcium [Mass/Vol] 8.8 mg/dL Normal 8.7-10.4 [facility] ([place] Comment on above: Performed By: #### Jacquelin Pena BMP, GFR #### [address] [address] Chloride [Moles/Vol] 98 mmol/L Normal 98-110 [facility] ([place] Comment on above: Performed By: #### Jacquelin Pena BMP, GFR #### [address] [address] CO2 [Moles/Vol] 35 mmol/L High 22-32 [facility] [place] Comment on above: Performed By: #### ROSALIA Andrews, GFR #### [address] [address] Creatinine [Mass/Vol] 2.80 mg/dL High 0.60-1.40 [facility] ([place] Comment on above: Performed By: #### ROSALIA Andrews, GFR #### [address] [address] Electrolyte Balance 5.0 mEq/L Normal 4.0-15.0 [facility] ([place] Comment on above: Performed By: #### ROSALIA Andrews, GFR #### [address] [address] Glucose [Mass/Vol] 111 mg/dL Normal 82-115 [facility] ([place] Comment on above: Performed By: #### ROSALIA Andrews, GFR #### [address] [address] Potassium [Moles/Vol] 5.1 mmol/L High 3.5-5.0 [facility] [place] Comment on above: Performed By: #### ROSALIA Andrews, GFR #### [address] [address] Sodium [Moles/Vol] 138 mmol/L Normal 136-145 [facility] ([place] Comment on above: Performed By: #### ROSALIA Andrews, GFR #### [address] [address] Urea nitrogen [Mass/Vol] 89.0 mg/dL High 8.0-22.0 [facility] ([place] Comment on above: Performed By: #### ROSALIA Andrews, GFR #### [address] [address] CBCon 08-11-2022 Erythrocyte distribution width (RBC) [Ratio] 17.2 % High 11.5-15.5 [facility] [place] Comment on above: Performed By: #### ROSALIA Andrews, GFR #### [address] [address] Hematocrit (Bld) [Volume fraction] 45.5 % Normal 40.0-52.0 [facility] [place] Comment on above: Performed By: #### Jacquelin Pena BMP, GFR #### [address] [address] Hgb 14.3 G/dL Normal 13.0-17.5 [facility] [place] Comment on above: Performed By: #### Jacquelin Pena BMP, GFR #### [place] [id number] MCH (RBC) [Entitic mass] 28.2 pg Normal 27.0-33.0 [facility] [place] Comment on above: Performed By: #### Jacquelin Pena BMP, GFR #### [place] [address] MCHC 31.4 G/dL Low 32.0-36.0 [facility] [place] Comment on above: Performed By: #### Jacquelin Pena BMP, GFR #### [place] [id number] MCV (RBC) [Entitic vol] 89.8 fL Normal 81.0-100.0 [facility] [place] Comment on above: Performed By: #### Jacquelin Pena BMP, GFR #### [place] [id number] Platelet 202 10 3/mcL Normal 150-450 [facility] [place] Comment on above: Performed By: #### Jacquelin Pena BMP, GFR #### [place] [address] Platelet mean volume (Bld) [Entitic vol] 8.7 fL Normal 6.4-10.5 [facility] [place] Comment on above: Performed By: #### Jacquelin Pena, BMP, GFR #### [place] [id number] RBC 5.06 10 6/mcL Normal 4.50-6.00 [facility] [place] Comment on above: Performed By: #### Jacquelin Pena, BMP, GFR #### [address] [place], [place] [address] WBC 5.1 10 3/mcL Normal 4.5-10.8 [facility] [place] Comment on above: Performed By: #### ROSALIA Andrews, GFR #### [place] [address] [address] [place] [address] MGon 08-11-2022 Magnesium [Mass/Vol] 2.8 mg/dL High 1.6-2.4 [facility] ([place]) Comment on above: Performed By: #### M Jean, BMP, GFR #### [place] [address] [address] [place] [address] XR CHEST 1 VIEWon 08-11-2022 XR CHEST [...] 08/11/2022 12:44:18 PM Ordering Provider: ROLAND Moreno [facility] [place] .GFRon 08-10-2022 GFR Non- 18 ml/min/1.73sqm Normal [facility] [place] Comment on above: Result Comment: GFR Population [...] Performed By: #### Jacquelin Pena BMP, GFR ####[address] [address] GFR 22 ml/min/1.73sqm Normal [facility] [place] Comment on above: Result Comment: GFR Population [...] Performed By: #### Jacquelin Pena BMP, GFR ####[address] [address] BMPon 08-10-2022 BUN/Creatinine Ratio 25.1 ratio High 10.0-22.0 [facility] ([place] Comment on above: Performed By: #### Jacquelin Pean BMP, GFR ####[address] [address] Calcium [Mass/Vol] 8.6 mg/dL Low 8.7-10.4 [facility] [place] Comment on above: Performed By: #### Jacquelin Pena BMP, GFR ####[address] [address] Chloride [Moles/Vol] 97 mmol/L Low 98-110 [facility] ([place] Comment on above: Performed By: #### Jacquelin Pena BMP, GFR ####[address] [address] CO2 [Moles/Vol] 39 mmol/L High 22-32 [facility] [place] Comment on above: Performed By: #### Jacquelin Pena BMP, GFR ####[address] [address] Creatinine [Mass/Vol] 3.43 mg/dL High 0.60-1.40 [facility] [place] Comment on above: Performed By: #### ROSALIA Andrews, GFR ####[place] [address] Electrolyte Balance 2.0 mEq/L Low 4.0-15.0 [facility] ([place] Comment on above: Performed By: #### ROSALIA Andrews, GFR ####[place] [address] Glucose [Mass/Vol] 104 mg/dL Normal 82-115 [facility] ([place] Comment on above: Performed By: #### ROSALIA Andrews, GFR ####[place] [address] Potassium [Moles/Vol] 5.0 mmol/L Normal 3.5-5.0 [facility] [place] Comment on above: Performed By: #### ROSALIA Andrews, GFR ####[place] [address] Sodium [Moles/Vol] 138 mmol/L Normal 136-145 [facility] ([place] Comment on above: Performed By: #### ROSALIA Andrews, GFR ####[place] [address] Urea nitrogen [Mass/Vol] 86.0 mg/dL High 8.0-22.0 [facility] [place] Comment on above: Performed By: #### ROSALIA Andrews, GFR ####[place] [address] HBSAGon 08-10-2022 Hep B Surf Ag Non-Reactive Normal Non-Reactiv [facility] [place] Comment on above: Performed By: #### H BSAG #### [place] [address] Hep B Surf Ag Non-Reactive Normal Non-Reactiv e [facility] [place] Comment on above: Performed By: #### H BSAG #### [place] [address] LABORATORYOrdered By: SYSTEM SYSTEM on 08-10-2022 HBV surface Ag IA Ql Non-Reactive (08/10/22 4:08 PM) Invalid Interpretation Code Non-Reactiv e AH ADM SS HBV surface Ag IA Ql Non-Reactive (08/10/22 10:48 AM) Invalid Interpretation Code Non-Reactiv e AH ADM SS MGon 08-10-2022 Magnesium [Mass/Vol] 2.9 mg/dL High 1.6-2.4 [facility] ([place] Comment on above: Performed By: #### Jacquelin Pena, BMP, GFR ####[address] [address] .GFRon 08-09-2022 GFR 25 ml/min/1.73sqm Normal [facility] [place] Comment on above: Result Comment: GFR Population [...] By: #### Jacquelin Pena PHOS, BMP, GFR ####[place] [address] GFR Non- 21 ml/min/1.73sqm Normal [facility] [place] Comment on above: Result Comment: GFR Population [...] By: #### Jacquelin Pena PHOS BMP, GFR ####[address] [address] BMPon 08-09-2022 BUN/Creatinine Ratio 25.4 ratio High 10.0-22.0 [facility] ([place] Comment on above: Performed By: #### Jacquelin Pena PHOFabián BMP, GFR ####[address] [address] Calcium [Mass/Vol] 8.9 mg/dL Normal 8.7-10.4 [facility] [place] Comment on above: Performed By: #### Jacquelin Pena PHOFabián BMP, GFR ####[address] [address] Chloride [Moles/Vol] 92 mmol/L Low 98-110 [facility] ([place] Comment on above: Performed By: #### Jacquelin Pena PHOS BMP, GFR ####[address] [address] CO2 [Moles/Vol] 39 mmol/L High 22-32 [facility] [place] Comment on above: Performed By: #### Jacquelin Pena PHOFabián BMP, GFR ####[address] [address] Creatinine [Mass/Vol] 3.03 mg/dL High 0.60-1.40 [facility] [place] Comment on above: Performed By: #### Jacquelin Pena PHOS, BMP, GFR ####[address] [address] Electrolyte Balance 4.0 mEq/L Normal 4.0-15.0 [facility] [place] Comment on above: Performed By: #### Jacquelin Pena PHOS, BMP, GFR ####[address] [address] Glucose [Mass/Vol] 158 mg/dL High 82-115 [facility] [place] Comment on above: Performed By: #### Jacquelin Pena PHOS, BMP, GFR ####[address] [address] Potassium [Moles/Vol] 5.1 mmol/L High 3.5-5.0 [facility] [place] Comment on above: Performed By: #### M G, PHOS, BMP, GFR ####[address] [address] Sodium [Moles/Vol] 135 mmol/L Low 136-145 [facility] [place] Comment on above: Performed By: #### M G, PHOS, BMP, GFR ####[address] [address] Urea nitrogen [Mass/Vol] 77.0 mg/dL High 8.0-22.0 [facility] [place] Comment on above: Performed By: #### M G, PHOS, BMP, GFR ####[address] [address] HFPon 08-09-2022 Bili Indirect 0.4 mg/dL Normal 0.1-10.0 [facility] [place] Comment on above: Performed By: #### H BSAG #### [place] [id number] Albumin Level 2.8 G/dL Low 3.2-4.8 [facility] [place] Comment on above: Performed By: #### H BSAG #### [place] [id number] Albumin/Globulin [Mass ratio] 0.7 {ratio} Low 0.9-1.6 [facility] [place] Comment on above: Performed By: #### H BSAG #### [address] [address] ALP [Catalytic activity/Vol] 82 U/L Normal 38-126 [facility] [place] Comment on above: Performed By: #### H BSAG #### [place] [id number] ALT/SGPT <8 Low 12-55 [facility] [place] Comment on above: Performed By: #### H BSAG #### [place] [address] AST [Catalytic activity/Vol] 14 U/L Normal 8-34 [facility] [place] Comment on above: Performed By: #### H BSAG #### [place] [address] Bili Direct 0.3 mg/dL Normal 0.0-0.4 [facility] [place] Comment on above: Result Comment: Use of this assay is not recommended for patients undergoing treatment with eltrombopag due to the potential for falsely elevated results. Performed By: #### H BSAG #### [place] [address] Bili Total 0.70 mg/dL Normal 0.20-1.20 [facility] [place] Comment on above: Result Comment: Use of this assay is not recommended for patients undergoing treatment with eltrombopag due to the potential for falsely elevated results. Performed By: #### H BSAG #### [place] [address] Globulin 4.3 G/dL High 1.5-3.8 [facility] [place] Comment on above: Performed By: #### H BSAG #### [place] [address] Total Protein 7.1 G/dL Normal 5.7-8.2 [facility] [place] Comment on above: Result Comment: No te - New Reference Range in effect 20 Performed By: #### H BSAG #### [place] [address] LABORATORYOrdered By: SYSTEM SYSTEM on 08-09-2022 Albumin [...] Lactic Acid Lvl 0.8 mmol/L Normal 0.2-2.0 [facility] [place] Comment on above: Performed By: #### H BSAG #### [address] [address] MGon 08-09-2022 Magnesium [Mass/Vol] 2.7 mg/dL High 1.6-2.4 [facility] ([place] Comment on above: Performed By: #### M G, PHOS, BMP, GFR ####[address] [address] PHOSon 08-09-2022 Phosphate [Mass/Vol] 5.4 mg/dL High 2.4-5.1 [facility] ([place] Comment on above: Result Comment: No te - New Reference Range in effect 20 Performed By: #### M G, PHOS, BMP, GFR ####[address] [address] UAon 08-09-2022 Color (U) Yellow Normal [facility] [place] Comment on above: Performed By: #### U A, UAMIC ####[address] [address] Glucose (U) [Mass/Vol] Negative Normal Negative [facility] [place] Comment on above: Performed By: #### U A, UAMIC ####[place] [address] Ketones Ql (U) Negative Normal Neg-Trace [facility] [place] Comment on above: Performed By: #### U A, UAMIC ####[place] [address] UA Appear Clear Normal Clear [facility] [place] Comment on above: Performed By: #### U A, UAMIC ####[place] [address] UA Blood Negative Normal Neg-Trace [facility] [place] Comment on above: Performed By: #### U A, UAMIC ####[place] [address] UA Leuk Est Small Abnormal Negative [facility] [place] Comment on above: Performed By: #### U A, UAMIC ####[place] [address] UA Nitrite Negative Normal Negative [facility] [place] Comment on above: Performed By: #### U A, UAMIC ####[place] [address] UA pH 5.0 Normal 5.0 - 8.0 [facility] [place] Comment on above: Performed By: #### U A, UAMIC ####[place] [address] UA Protein 100 mg/dL Abnormal Negative [facility] [place] Comment on above: Performed By: #### U A, UAMIC ####[place] [address] UA Spec Grav 1.015 Normal 1.006-1.029 [facility] ([place] Comment on above: Performed By: #### U A, UAMIC ####[place] [address] UA Specimen Type Void Normal [facility] [place] Comment on above: Performed By: #### U A, UAMIC ####[place] [address] UA Urobilinogen 1.0 E.U./dL Normal 0.2-1.0 [facility] ([place] Comment on above: Performed By: #### U A, UAMIC ####[place] [address] Urobilinogen (U) [Mass/Vol] Negative Normal Neg-Trace [facility] [place] Comment on above: Performed By: #### U A, UAMIC ####[place] [address] UAMICon 08-09-2022 UA Amorphus 1+ /hpf Normal [facility] [place] Comment on above: Performed By: #### U A, UAMIC ####[place] [address] UA Bacteria Trace Abnormal Negative [facility] [place] Comment on above: Performed By: #### U A, UAMIC ####[place] [address] UA Mucous Trace Normal [facility] [place] Comment on above: Performed By: #### U A, UAMIC ####[place] [address] UA RBC Negative Normal 0-2 [facility] [place] Comment on above: Performed By: #### U A, UAMIC ####[place] [address] UA Squam Epithelial 3-5 Normal 0-20 [facility] ([place] Comment on above: Performed By: #### U A, UAMIC ####[place] [address] UA WBC 0-2 Normal 0-5 [facility] [place] Comment on above: Performed By: #### U A, UAMIC ####[place] [address] .GFRon 08-08-2022 GFR 33 ml/min/1.73sqm Normal [facility] [place] Comment on above: Result Comment: GFR Population [...] By: #### Jacquelin Pena, BMP, GFR #### [address] [address] GFR Non- 27 ml/min/1.73sqm Normal [facility] [place] Comment on above: Result Comment: GFR Population [...] By: #### Jacquelin Pena, BMP, GFR #### [address] [address] BMPon 08-08-2022 BUN/Creatinine Ratio 38.4 ratio High 10.0-22.0 [facility] ([place]) Comment on above: Performed By: #### Jacquelin Pena BMP, GFR #### [address] [address] Calcium [Mass/Vol] 8.6 mg/dL Low 8.7-10.4 [facility] ([place] Comment on above: Performed By: #### Jacquelin Pena, BMP, GFR #### [address] [address] Chloride [Moles/Vol] 96 mmol/L Low 98-110 [facility] ([place] Comment on above: Performed By: #### ROSALIA Andrews, GFR #### [address] [address] CO2 [Moles/Vol] 38 mmol/L High 22-32 [facility] [place] Comment on above: Performed By: #### Jacquelin Pena BMP, GFR #### [address] [address] Creatinine [Mass/Vol] 2.37 mg/dL High 0.60-1.40 [facility] [place] Comment on above: Performed By: #### ROSALIA Andrews, GFR #### [address] [address] Electrolyte Balance 5.0 mEq/L Normal 4.0-15.0 [facility] ([place] Comment on above: Performed By: #### ROSALIA Andrews, GFR #### [address] [address] Glucose [Mass/Vol] 106 mg/dL Normal 82-115 [facility] ([place] Comment on above: Performed By: #### ROSALIA Andrews, GFR #### [address] [address] Potassium [Moles/Vol] 5.6 mmol/L High 3.5-5.0 [facility] [place] Comment on above: Performed By: #### ROSALIA Andrews, GFR #### [address] [address] Sodium [Moles/Vol] 139 mmol/L Normal 136-145 [facility] [place] Comment on above: Performed By: #### ROSALIA Andrews, GFR #### [address] [address] Urea nitrogen [Mass/Vol] 91.0 mg/dL High 8.0-22.0 [facility] [place] Comment on above: Performed By: #### ROSALIA Andrews, GFR #### [address] [address] MGon 08-08-2022 Magnesium [Mass/Vol] 2.6 mg/dL High 1.6-2.4 [facility] ([place] Comment on above: Performed By: #### M G, BMP, GFR #### [facility] [address] [place] [address] .GFRon 08-07-2022 GFR Non- 38 ml/min/1.73sqm Normal [facility] [place] Comment on above: Result Comment: GFR Population [...] Performed By: #### V BG, GFR, BMP ####[place] [id number] [place] [address] GFR 46 ml/min/1.73sqm Normal [facility] [place] Comment on above: Result Comment: GFR Population [...] Performed By: #### V BG, GFR, BMP ####[place] [id number] [place] [address] GFR 51 ml/min/1.73sqm Normal [facility] [place] Comment on above: Result Comment: GFR Population [...] By: #### G FR, MG, BMP, VBG ####[address] [address] GFR Non- 42 ml/min/1.73sqm Normal [facility] [place] Comment on above: Result Comment: GFR Population [...] By: #### G FR, MG, BMP, VBG ####[place] [address] BMPon 08-07-2022 BUN/Creatinine Ratio 26.7 ratio High 10.0-22.0 [facility] ([place] Comment on above: Performed By: #### V BG, GFR, BMP ####[address] [address] Calcium [Mass/Vol] 8.9 mg/dL Normal 8.7-10.4 [facility] ([place] Comment on above: Performed By: #### V BG, GFR, BMP ####[address] [address] Chloride [Moles/Vol] 98 mmol/L Normal 98-110 [facility] ([place] Comment on above: Performed By: #### V BG, GFR, BMP ####[address] [address] CO2 [Moles/Vol] 31 mmol/L Normal 22-32 [facility] [place] Comment on above: Performed By: #### V BG, GFR, BMP ####[address] [address] Creatinine [Mass/Vol] 1.80 mg/dL High 0.60-1.40 [facility] [place] Comment on above: Performed By: #### V BG, GFR, BMP ####[address] [address] Electrolyte Balance 4.0 mEq/L Normal 4.0-15.0 [facility] [place] Comment on above: Performed By: #### V BG, GFR, BMP ####[address] [address] Glucose [Mass/Vol] 242 mg/dL High 82-115 [facility] [place] Comment on above: Performed By: #### V BG, GFR, BMP ####[address] [address] Potassium [Moles/Vol] 5.5 mmol/L High 3.5-5.0 [facility] [place] Comment on above: Result Comment: Spec imen slightly hemolyzed. Performed By: #### V BG, GFR, BMP ####[address] [address] Sodium [Moles/Vol] 133 mmol/L Low 136-145 [facility] [place] Comment on above: Performed By: #### V BG, GFR, BMP ####[address] [address] Urea nitrogen [Mass/Vol] 48.0 mg/dL High 8.0-22.0 [facility] [place] Comment on above: Performed By: #### V BG, GFR, BMP ####[place] [address] BUN/Creatinine Ratio 47.6 ratio High 10.0-22.0 [facility] ([place] Comment on above: Performed By: #### G FR, MG, BMP, VBG ####[address] [address] Calcium [Mass/Vol] 8.6 mg/dL Low 8.7-10.4 [facility] ([place] Comment on above: Performed By: #### G FR, MG, BMP, VBG ####[place] [address] Chloride [Moles/Vol] 96 mmol/L Low 98-110 [facility] ([place] Comment on above: Performed By: #### G FR, MG, BMP, VBG ####[place] [address] CO2 [Moles/Vol] 35 mmol/L High 22-32 [facility] [place] Comment on above: Performed By: #### G FR, MG, BMP, VBG ####[place] [address] Creatinine [Mass/Vol] 1.64 mg/dL High 0.60-1.40 [facility] [place] Comment on above: Performed By: #### G FR, MG, BMP, VBG ####[place] [address] Electrolyte Balance 7.0 mEq/L Normal 4.0-15.0 [facility] [place] Comment on above: Performed By: #### G FR, MG, BMP, VBG ####[place] [address] Glucose [Mass/Vol] 110 mg/dL Normal 82-115 [facility] [place] Comment on above: Performed By: #### G FR, MG, BMP, VBG ####[address] [place] [address] Potassium [Moles/Vol] 5.2 mmol/L High 3.5-5.0 [facility] [place] Comment on above: Result Comment: Spec imen slightly hemolyzed. Performed By: #### G FR, MG, BMP, VBG ####[address] [address] Sodium [Moles/Vol] 138 mmol/L Normal 136-145 [facility] [place] Comment on above: Performed By: #### G FR, MG, BMP, VBG ####[address] [address] Urea nitrogen [Mass/Vol] 78.0 mg/dL High 8.0-22.0 [facility] [place] Comment on above: Performed By: #### G FR, MG, BMP, VBG ####[address] [address] LABORATORYOrdered By: Vimal Hays on 08-07-2022 Base [...] 08-07-2022 Magnesium [Mass/Vol] 2.4 mg/dL Normal 1.6-2.4 [facility] ([place] Comment on above: Performed By: #### G FR, MG, BMP, VBG ####[place] [address] VBGon 08-07-2022 BE Venous 6.8 mmol/L High -3.0-3.0 [facility] [place] Comment on above: Performed By: #### V BG, GFR, BMP ####[place] [address] HCO3 (Bld) [Moles/Vol] 38.8 mmol/L High 21.0-30.0 [facility] [place] Comment on above: Performed By: #### V BG, GFR, BMP ####[place] [address] pCO2 Ciaran 95.0 mmHg High 41.0-51.0 [facility] [place] Comment on above: Performed By: #### V BG, GFR, BMP ####[place] [address] pH Venous 7.229 Low 7.380-7.460 [facility] [place] Comment on above: Performed By: #### V BG, GFR, BMP ####[place] [address] pO2 Ciaran 102.2 mmHg High 35.0-40.0 [facility] [place] Comment on above: Performed By: #### V BG, GFR, BMP ####[place] [address] TCO2 Venous 96.9 % High 70.0-75.0 [facility] [place] Comment on above: Performed By: #### V BG, GFR, BMP ####[place] [address] BE Venous 6.2 mmol/L High -3.0-3.0 [facility] [place] Comment on above: Performed By: #### G FR, MG, BMP, VBG ####[place] [address] HCO3 (Bld) [Moles/Vol] 33.5 mmol/L High 21.0-30.0 [facility] [place] Comment on above: Performed By: #### G FR, MG, BMP, VBG ####[place] [address] pCO2 Ciaran 59.4 mmHg High 41.0-51.0 [facility] [place] Comment on above: Performed By: #### G FR, MG, BMP, VBG ####[place] [address] pH Venous 7.369 Low 7.380-7.460 [facility] [place] Comment on above: Performed By: #### G FR, MG, BMP, VBG ####[place] [address] pO2 Ciaran 276.4 mmHg High 35.0-40.0 [facility] [place] Comment on above: Performed By: #### G FR, MG, BMP, VBG ####[place] [address] TCO2 Venous 99.9 % High 70.0-75.0 [facility] [place] Comment on above: Performed By: #### G FR, MG, BMP, VBG ####[place] [address] .Auto Diffon 08-06-2022 Basophil, Absolute 0.0 10 3/mcL Normal 0.0-0.3 [facility] ([place] Comment on above: Performed By: #### Jacquelin Pena BMP, GFR #### [address] [address] Basophils/100 WBC (Bld) 0.4 % Normal 0.0-2.5 [facility] [place] Comment on above: Performed By: #### Jacquelin Pena, BMP, GFR #### [address] [address] Eosinophil, Absolute 0.0 10 3/mcL Normal 0.0-0.7 [facility] ([place] Comment on above: Performed By: #### Jacquelin Pena BMP, GFR #### [address] [address] Eosinophils/100 WBC (Bld) 0.4 % Normal 0.0-6.0 [facility] [place] Comment on above: Performed By: #### Jacquelin Pena BMP, GFR #### [address] [address] Lymphocyte, Absolute 0.3 10 3/mcL Low 0.9-4.3 [facility] ([place] Comment on above: Performed By: #### Jacquelin Pena BMP, GFR #### [address] [address] Lymphocytes/100 WBC (Bld) 6.0 % Low 20.0-40.0 [facility] [place] Comment on above: Performed By: #### Jacquelin Pena BMP, GFR #### [address] [address] Monocyte, Absolute 0.4 10 3/mcL Normal 0.1-1.4 [facility] ([place] Comment on above: Performed By: #### Jacquelin Pena BMP, GFR #### [address] [address] Monocytes/100 WBC (Bld) 6.7 % Normal 2.0-13.0 [facility] [place] Comment on above: Performed By: #### Jacquelin Pena, BMP, GFR #### [address] [address] Neutrophils/100 WBC (Bld) 86.5 % High 50.0-75.0 [facility] [place] Comment on above: Performed By: #### Jacquelin Pena, BMP, GFR #### [address] [address] .GFRon 08-06-2022 GFR Non- 46 ml/min/1.73sqm Normal [facility] [place] Comment on above: Result Comment: GFR Population [...] By: #### Jacquelin Pena, BMP, GFR #### [address] [address] GFR 55 ml/min/1.73sqm Normal [facility] [place] Comment on above: Result Comment: GFR Population [...] By: #### Jacquelin G, BMP, GFR #### [address] [address] .MDWon 08-06-2022 Monocyte Distribution Width 18.58 Normal 0.00-20.00 [facility] [place] Comment on above: Result Comment: For ED adult patients suspected of sepsis, MDW<=20.0 does not rule out sepsis or risk of sepsis Performed By: #### Jacquelin Pena BMP, GFR #### [address] [address] .NEUABSon 08-06-2022 Neutrophil, Absolute 5.0 10 3/mcL Normal 2.3-8.1 [facility] ([place] Comment on above: Performed By: #### Jacquelin Pena, BMP, GFR #### [address] [address] BGon 08-06-2022 Barometric Pressure 718 mmHg Normal [facility] [place] Comment on above: Performed By: #### Jacquelin Pena, BMP, GFR #### [place] [address] Base excess Calc (Bld) [Moles/Vol] 8.2 mmol/L Normal [facility] [place] Comment on above: Performed By: #### Jacquelin Pena, BMP, GFR #### [place] [address] CO2 [Moles/Vol] 41.8 mmol/L Critically abnormal 22.0-30.0 [facility] [place] Comment on above: Performed By: #### Jacquelin Pena, BMP, GFR #### [place] [address] HCO3 (Bld) [Moles/Vol] 39.1 mmol/L High 21.0-29.0 [facility] [place] Comment on above: Performed By: #### Jacquelin Pena, BMP, GFR #### [place] [id number] Oxygen (Bld) [Partial pressure] 96.5 mm[Hg] Normal 74.0-108.0 [facility] [place] Comment on above: Performed By: #### Jacquelin Pena, BMP, GFR #### [place] [id number] Oxygen saturation in Blood 97.1 % High 92.0-96.0 [facility] [place] Comment on above: Performed By: #### M G, BMP, GFR #### [facility] [address] [place] [address] pCO2 87.5 mmHg Critically abnormal 32.0-46.0 [facility] [place] Comment on above: Performed By: #### M G, BMP, GFR #### [facility] [address] [place] [address] pH (Bld) 7.268 [pH] Low 7.380-7.460 [facility] [place] Comment on above: Performed By: #### M G, BMP, GFR #### [facility] [address] [place] [address] Barometric Pressure 745 mmHg Normal [facility] ([place] Comment on above: Performed By: #### B G ####[address] [address] Base excess Calc (Bld) [Moles/Vol] 14.9 mmol/L Normal [facility] [place] Comment on above: Performed By: #### B G ####[address] [address] CO2 [Moles/Vol] 52.7 mmol/L Critically abnormal 22.0-30.0 [facility] [place] Comment on above: Performed By: #### B G ####[address] [address] HCO3 (Bld) [Moles/Vol] 48.9 mmol/L High 21.0-29.0 [facility] [place] Comment on above: Performed By: #### B G ####[address] [address] Oxygen (Bld) [Partial pressure] 32.8 mm[Hg] Critically abnormal 74.0-108.0 [facility] [place] Comment on above: Performed By: #### B G ####[facility] [place] [address] Oxygen saturation in Blood 46.9 % Low 92.0-96.0 [facility] [place] Comment on above: Performed By: #### B G ####[place] [address] pCO2 122.9 mmHg Critically abnormal 32.0-46.0 [facility] [place] Comment on above: Performed By: #### B G ####[place] [address] pH (Bld) 7.218 [pH] Low 7.380-7.460 [facility] [place] Comment on above: Performed By: #### B G ####[place] [address] CBCon 08-06-2022 Erythrocyte distribution width (RBC) [Ratio] 17.8 % High 11.5-15.5 [facility] [place] Comment on above: Performed By: #### M Jean BMP, GFR #### [place] [address] Hematocrit (Bld) [Volume fraction] 48.9 % Normal 40.0-52.0 [facility] [place] Comment on above: Performed By: #### Jacquelin Pena BMP, GFR #### [place] [address] Hgb 15.3 G/dL Normal 13.0-17.5 [facility] [place] Comment on above: Performed By: #### Jacquelin Pena BMP, GFR #### [place] [address] MCH (RBC) [Entitic mass] 29.0 pg Normal 27.0-33.0 [facility] [place] Comment on above: Performed By: #### M Jean, BMP, GFR #### [place] [address] MCHC 31.3 G/dL Low 32.0-36.0 [facility] [place] Comment on above: Performed By: #### M Jean, BMP, GFR #### [place] [address] MCV (RBC) [Entitic vol] 92.7 fL Normal 81.0-100.0 [facility] [place] Comment on above: Performed By: #### Jacqueiln Pena, BMP, GFR #### [address] [address] Platelet 229 10 3/mcL Normal 150-450 [facility] [place] Comment on above: Performed By: #### ROSALIA Andrews, GFR #### [address] [address] Platelet mean volume (Bld) [Entitic vol] 8.5 fL Normal 6.4-10.5 [facility] [place] Comment on above: Performed By: #### ROSALIA Andrews, GFR #### [address] [address] RBC 5.28 10 6/mcL Normal 4.50-6.00 [facility] [place] Comment on above: Performed By: #### ROSALIA Andrews, GFR #### [address] [address] WBC 5.8 10 3/mcL Normal 4.5-10.8 [facility] [place] Comment on above: Performed By: #### ROSALIA Andrews, GFR #### [address] [address] CMPon 08-06-2022 Electrolyte Balance see comment Normal 4.0-15.0 [facility] ([place] Comment on above: Result Comment: unab le to calculate Performed By: #### ROSALIA Andrews, GFR #### [address] [address] Albumin Level 3.5 G/dL Normal 3.2-4.8 [facility] [place] Comment on above: Performed By: #### ROSALIA Andrews, GFR #### [address] [address] Albumin/Globulin [Mass ratio] 0.7 {ratio} Low 0.9-1.6 [facility] [place] Comment on above: Performed By: #### ROSALIA Andrews, GFR #### [address] [address] ALP [Catalytic activity/Vol] 96 U/L Normal 38-126 [facility] [place] Comment on above: Performed By: #### ROSALIA Andrews, GFR #### [address] [address] ALT/SGPT <8 Low 12-55 [facility] [place] Comment on above: Performed By: #### Jacquelin Pena BMP, GFR #### [address] [address] AST [Catalytic activity/Vol] 18 U/L Normal 8-34 [facility] [place] Comment on above: Performed By: #### Jacquelin Pena BMP, GFR #### [address] [address] Bili Total 0.90 mg/dL Normal 0.20-1.20 [facility] [place] Comment on above: Result Comment: Use of this assay is not recommended for patients undergoing treatment with eltrombopag due to the potential for falsely elevated results. Performed By: #### Jacquelin Pena BMP, GFR #### [place] [id number] BUN/Creatinine Ratio 40.1 ratio High 10.0-22.0 [facility] ([place] Comment on above: Performed By: #### Jacquelin Pena BMP, GFR #### [address] [address] Calcium [Mass/Vol] 9.1 mg/dL Normal 8.7-10.4 [facility] ([place] Comment on above: Performed By: #### Jacquelin Pena BMP, GFR #### [address] [address] Chloride [Moles/Vol] 94 mmol/L Low 98-110 [facility] ([place] Comment on above: Performed By: #### Jacquelin Pena BMP, GFR #### [address] [address] CO2 [Moles/Vol] mmol/L Critically abnormal 22-32 [facility] [place] Comment on above: Performed By: #### Jacquelin Pena BMP, GFR #### [address] [address] Creatinine [Mass/Vol] 1.52 mg/dL High 0.60-1.40 [facility] [place] Comment on above: Performed By: #### Jacquelin Pena, BMP, GFR #### [address] [address] Globulin 4.7 G/dL High 1.5-3.8 [facility] [place] Comment on above: Performed By: #### M Jean, BMP, GFR #### [address] [address] Glucose [Mass/Vol] 315 mg/dL High 82-115 [facility] [place] Comment on above: Performed By: #### Jacquelin Pean, BMP, GFR #### [address] [address] Potassium [Moles/Vol] 5.0 mmol/L Normal 3.5-5.0 [facility] [place] Comment on above: Result Comment: Spec imen slightly hemolyzed. Performed By: #### Jacquelin Pena, BMP, GFR #### [address] [address] Sodium [Moles/Vol] 134 mmol/L Low 136-145 [facility] [place] Comment on above: Performed By: #### Jacquelin Pena, BMP, GFR #### [address] [address] Total Protein 8.2 G/dL Normal 5.7-8.2 [facility] [place] Comment on above: Result Comment: No te - New Reference Range in effect 20 Performed By: #### Jacquelin Pena, BMP, GFR #### [address] [address] Urea nitrogen [Mass/Vol] 61.0 mg/dL High 8.0-22.0 [facility] [place] Comment on above: Performed By: #### Jacquelin Pena, BMP, GFR #### [address] [address] [address] ANGIOGRAPHY CHEST W/CONTR Mily 08-06-2022 CT [...] 12:29:16 PM Ordering Provider: MIKAELA FELDER Normal [facility] [place] CVFLURVon 08-06-2022 FLU A PCR Negative Normal Negative [facility] [place] Comment on above: Result Comment: [place] [id number] Performed By: #### M G, BMP, GFR #### [facility] [address] [place] [address] FLU B PCR Negative Normal Negative [facility] [place] Comment on above: Result Comment: [place] [id number] Performed By: #### M G, BMP, GFR #### [facility] [address] [place], [place] [address] RSV PCR Negative Normal Negative [facility] [place] Comment on above: Result Comment: [place] [id number] Performed By: #### M G, BMP, GFR #### [place] [address] [place] [address] SARS-CoV-2 (COVID-19) RNA FLAVIO+probe Ql (Unsp spec) Negative Normal Negative [facility] [place] Comment on above: Result Comment: [place] [id number] This test has been authorized by FDA [...] By: #### M Jean, ROSALIA, GFR #### [place] [address] LABORATORYOrdered By: Maurisio Nguyen on 08-06-2022 Barometric [...] Comment on above: [place]: [place] [id number] FLUBV RNA FLAVIO+probe Ql (Resp) Negative 8 (08/06/22 9:46 AM) Invalid Interpretation Code Negative AH Auto Viro/Sero SS Comment on above: Result Comment: [place] [id number] RSV PCR Negative 9 (08/06/22 9:46 AM) Invalid Interpretation Code Negative AH Auto Viro/Sero SS Comment on above: Result Comment: [place] s [id number] SARS-CoV-2 (COVID-19) RNA FLAVIO+probe Ql (Resp) Negative 6 (08/06/22 9:46 AM) Invalid Interpretation Code Negative AH Auto Viro/Sero SS Comment on above: Result Comment: [place] [id number] LABORATORYOrdered By: Char John on 08-06-2022 Natriuretic peptide.B prohormone N-Terminal [Mass/Vol] 3861 pg/mL Invalid Interpretation Code 0 - 900 pg/mL AH Auto Chem SS LACon 08-06-2022 Lactic Acid Lvl 1.2 mmol/L Normal 0.2-2.0 [facility] [place] Comment on above: Performed By: #### M G, BMP, GFR #### [place] [address] No Panel Informationon 08-06 Microscopic examination of blood, culture Blood Culture: No Growth at 5 days. [facility] Work Phone: PBNPon 08-06-2022 Natriuretic peptide B (Bld) [Mass/Vol] 3861 pg/mL High 0-900 [facility] ([place]) Comment on above: Result Comment: NT-p roBNP results of less than 300 pg/mL effectively rules out acute congestive heart failure with 99% negative predictive value. Performed By: #### C MP, ANEU, LAC, ADIFF, PBNP, TROPHS, MDW, CBC, GFR ####[facility] [place] [address] TROPHSon 08-06-2022 Troponin I High Sensitivity 35.54 ng/L Normal 0.00-54.00 [facility] [place] Comment on above: Result Comment: If t he High Sensitive Troponin result is below the 99th percentile value (<45 ng/L) at the first blood draw, at least two additional blood samples should be drawn before results are interpreted as negative for AMI. Performed By: #### M G, BMP, GFR #### [facility] [address] [place] [address] XR CHEST 1 VIEWon 08-06-2022 XR CHEST [...] 08/06/2022 9:54:36 AM Ordering Provider: DAWSON Moreno [facility] [place] CORONAVIRUS PCR - [facility] 06-08-2021 SARS-CoV-2 (COVID-19) RNA FLAVIO+probe Ql (Unsp spec) Negative Normal NORMAL: NEGATIVE [facility] Comment on above: Performed By: #### 2 [id number] #### [facility],[address] [place] [address] SEND TO IC? YES Normal [facility] Comment on above: Result Comment: RESU LTS FAXED TO INFECTION CONTROL. SARS-CoV-2 THIS TEST IS BEING USED UNDER THE FDA EUA PROCEDURE. THIS ASSAY HAS BEEN VALIDATED IN THE [facility] FOR USE WITH NASOPHARYNGEAL SPECIMENS IN [facility]. INTERPRETIVE DATA LABORATORY TEST RESULTS SHOULD [...] PUBLIC HEALTH AUTHORITIES. Performed By: #### 2 [id number] #### [facility],[address] [place] [address] POCT GLUCOSEon 04-23-2018 Glucose mass conc 169 mg/dL High 65-99 [facility] Comment on above: Performed By: #### C RESISTANCE MACHINE WELDER SETTER ####Main LaboratoryLaSandra Ville [address] [place] [address] WOUND CULTURE-TISSUEon 04-23 WOUND CULTURE-TISSUE Specimen source XXX : TISSUE LEFT SUBTAYLER JOINT Performed at [address] [address]Pdcztsl Cmnt XXX-Imp: NONE Performed at [address] [address]Zpyulqvnkey observation: 1+ GRAM POSITIVE COCCI 1+ WBCBacteria identified: 2+ COAGULASE NEGATIVE STAPHYLOCOCCI (MRSE) Performed at [address] [address]: FINAL 04/25/2018 ANTIBIOTIC [place]/INTERPORGANISM: 1 2+ COAGULASE NEGATIVE STAPHYLOCOCCI (MRSE) [place] TETRACYCLINE <=2 SUSCEPTIBLE TRIMETHOPRIM SULFAMETHOXAZOLE >2/38 RESISTANT VANCOMYCIN 1 SUSCEPTIBLE DAPTOMYCIN <=0.25 SUSCEPTIBLE Normal [facility] Comment on above: Performed By: #### W NDT ####[id number] [address] WOUND CULTURE-TISSUE Specimen source XXX : TISSUE LEFT ANKLE JOINT Performed at [address] [address]Ymfpmhj Cmnt XXX-Imp: NONE Performed at [address] [address]Irazaoapawi observation: 1+ GRAM POSITIVE COCCI NO WBC SEENBacteria identified: 1+ COAGULASE NEGATIVE STAPHYLOCOCCI (MRSE) Performed at [address] [address]: FINAL 04/25/2018 ANTIBIOTIC [place]/INTERPORGANISM: 1 1+ COAGULASE NEGATIVE STAPHYLOCOCCI (MRSE) [place] TETRACYCLINE <=2 SUSCEPTIBLE TRIMETHOPRIM SULFAMETHOXAZOLE >2/38 RESISTANT VANCOMYCIN 1 SUSCEPTIBLE DAPTOMYCIN <=0.25 SUSCEPTIBLE [facility] Comment on above: Performed By: #### W NDT ####[id number] [address] [address] ANKLE LT WO CONTRASTon 04-21 ANKLE LT WO CONTRAST *FINAL *Date of Service: 04/20/2018 22:30 Adm #: [id number] Dr:RICCI Garcia Dr: RICCI WOODYASPROCEDURE: ANKLE LT WO CONTRAST - [facility] 3190REASON FOR EXAM: Charcot left ankle [...] by/Date: NO ADDENDUMAddendum Electronically Signed by/Date: Normal [facility] CBC with Diffon 04-21-2018 AB IMMATURE NEUT 0.02 K/UL Normal 0.0-0.1 [facility] Comment on above: Performed By: #### C BCD ####Main [address] [address] ABS BASO 0.01 K/UL Normal 0.00-0.22 [facility] Comment on above: Performed By: #### C BCD ####[place] [address] [place] [address] ABS EOS 0.11 K/UL Normal 0-0.45 [facility] Comment on above: Performed By: #### C BCD ####[place] [address] [place] [address] ABS NEUTROPHILS 4.47 K/UL Normal 1.8-7.7 [facility] Comment on above: Performed By: #### C BCD ####[place] [address] [place] [address] ABS.NEUT.CALCULATED Normal [facility] Comment on above: Result Comment: 4.[address] [facility] [address] [address] [place] [address] Performed By: #### C BCD ####[place] [address] [place] [address] Basophils/100 WBC Auto (Bld) 0.20 % Normal 0-1 [facility] Comment on above: Performed By: #### C BCD ####[place] [address] [place] [address] DIFF TYPE AUTO DIFF Normal [facility] Comment on above: Performed By: #### C BCD ####[place] [address] [place] [address] Eosinophils/100 WBC Auto (Bld) 1.90 % Normal 0-3 [facility] Comment on above: Performed By: #### C BCD ####[place] [address] [place] [address] Erythrocyte distribution width Auto Ratio (RBC) 15.8 % High 11.7-15.0 [facility] Comment on above: Performed By: #### C BCD ####[place] [address] [place] [address] Hematocrit Auto Volume Fraction (Bld) 40.2 % Low 41-50 [facility] Comment on above: Performed By: #### C BCD ####[facility] [place] [address] [place] [address] Hemoglobin mass conc (Bld) 12.4 g/dL Low 13.5-16.5 [facility] Comment on above: Performed By: #### C BCD ####[facility] LaboratoryLake Mqel[address]806 [place] [address] IMMATURE NEUT % 0.30 % Normal 0.0-1.0 [facility] Comment on above: Performed By: #### C BCD ####[facility] LaboratoryLake Ppcx93403 [place] [address] Lymphocytes Auto #/vol (Bld) 0.70 10*3/uL Low 1.2-3.2 [facility] Comment on above: Performed By: #### C BCD ####[facility] LaboratoryLake Ussc[address]157 [place] [address] Lymphocytes/100 WBC Auto (Bld) 12.00 % Low 20-40 [facility] Comment on above: Performed By: #### C BCD ####[facility] LaboratoryLake Dnfb65302 [place] [address] MCH Auto Entitic mass (RBC) 28.2 pg Normal 26-34 [facility] Comment on above: Performed By: #### C BCD ####[facility] LaboratoryMdke Shbo[address]124 [place] [address] MCHC Auto mass conc (RBC) 30.8 % Low 31-37 [facility] Comment on above: Performed By: #### C BCD ####[facility] LaboratoryLake Yveu97427 [place] [address] MCV Auto Entitic volume (RBC) 91.4 fL Normal 80-100 [facility] Comment on above: Performed By: #### C BCD ####[facility] LaboratoryMdke Asgu15411 [place] [address] MEAN PLT VOL 10.8 CU Normal 7.0-12.6 [facility] Comment on above: Performed By: #### C BCD ####[facility] LaboratoryLake Dafu[address]40 [place] [address] Monocytes Auto #/vol (Bld) 0.50 10*3/uL Normal 0-0.8 [facility] Comment on above: Performed By: #### C BCD ####[facility] LaboratoryLake Bxlb02462 [place] [address] Monocytes/100 WBC Auto (Bld) 8.60 % High 0-8 [facility] Comment on above: Performed By: #### C BCD ####[facility] LaboratoryLake Tsvb31285 [place] [address] Neutrophils/100 WBC Auto (Bld) 77.00 % High 50-70 [facility] Comment on above: Performed By: #### C BCD ####[facility] LaboratoryLake Hfsw74972 [place] [address] NRBC'S 0 /100 WBC Normal 0 [facility] Comment on above: Performed By: #### C BCD ####[facility] LaboratoryLake Tyst[address]356 [place] [address] Platelets Auto #/vol (Bld) 177 10*3/uL Normal 150-450 [facility] Comment on above: Performed By: #### C BCD ####[facility] LaboratoryLake Rdia[address]245 [place] [address] RBC Auto #/vol (Bld) 4.40 M/UL Low 4.5-5.5 [facility] Comment on above: Performed By: #### C BCD ####[facility] LaboratoryLake Ulno[address] [place] [address] RDW-SD 52.9 FL Normal 37.0-54.0 [facility] Comment on above: Performed By: #### C BCD ####[facility] LaboratoryLake Mprv[address]327 [place] [address] WBC Auto #/vol (Bld) 5.8 10*3/uL Normal 4.5-11.0 [facility] Comment on above: Performed By: #### C BCD ####[facility] LaboratoryLake Fzlw[address]200 [place] [address] COMPREHENSIVE METABOLIC PANE Johnny 04-21-2018 Albumin mass conc 3.2 g/dL Low 3.5-5.0 [facility] Comment on above: Performed By: #### C RESISTANCE MACHINE WELDER SETTER ####[facility] LaboratoryLake Ckht[address]373 [place] [address] Albumin/Globulin mass ratio 0.9 {ratio} Low 1.5-3.0 [facility] Comment on above: Performed By: #### C RESISTANCE MACHINE WELDER SETTER ####Main LaboratoryLake Szwu[address]872 [place] [address] ALP enzyme act/vol 75 U/L Normal 35-125 [facility] Comment on above: Performed By: #### C RESISTANCE MACHINE WELDER SETTER ####Main LaboratoryLake Ufbc[address]678 [place] [address] ALT enzyme act/vol Normal 5-40 [facility] Comment on above: Result Comment: 6Per formed at [facility] [address] [place] [address] Performed By: #### C RESISTANCE MACHINE WELDER SETTER ####Main LaboratoryLake Qyaa[address]220 [place] [address] Anion gap 3 molar conc 11 mmol/L Normal 0-19 [facility] Comment on above: Performed By: #### C RESISTANCE MACHINE WELDER SETTER ####Main LaboratoryLake Cjbo[address] [place] [address] AST enzyme act/vol 11 U/L Normal 5-40 [facility] Comment on above: Performed By: #### C RESISTANCE MACHINE WELDER SETTER ####Main LaboratoryLake Wwjj[address]67 [place] [address] Bilirubin mass conc 0.4 mg/dL Normal 0.1-1.2 [facility] Comment on above: Performed By: #### C RESISTANCE MACHINE WELDER SETTER ####Main LaboratoryLake Xise[address]21 [place] [address] Calcium mass conc 8.7 mg/dL Normal 8.5-10.4 [facility] Comment on above: Performed By: #### C RESISTANCE MACHINE WELDER SETTER ####Main LaboratoryLake Taar[address]83 [place] [address] Chloride molar conc 99 mmol/L Normal 97-107 [facility] Comment on above: Performed By: #### C RESISTANCE MACHINE WELDER SETTER ####Main LaboratoryLake Auxq[address]658 [place] [address] CO2 molar conc 30 mmol/L Normal 24-31 [facility] Comment on above: Performed By: #### C RESISTANCE MACHINE WELDER SETTER ####Main LaboratoryLake Gkej[address]68 [place] [address] Creatinine mass conc 1.0 mg/dL Normal 0.4-1.6 [facility] Comment on above: Performed By: #### C RESISTANCE MACHINE WELDER SETTER ####Main LaboratoryLake Dsqi[address]65 [place] [address] Globulin Calculated mass conc (S) 3.6 g/dL Normal 1.9-3.7 [facility] Comment on above: Performed By: #### C RESISTANCE MACHINE WELDER SETTER ####Main LaboratoryLake Xtjg[address]282 [place] [address] Glucose mass conc 175 mg/dL High 65-99 [facility] Comment on above: Performed By: #### C RESISTANCE MACHINE WELDER SETTER ####Main LaboratoryLake Pvez8[address]60 [place] [address] Potassium molar conc 4.5 mmol/L Normal 3.4-5.1 [facility] Comment on above: Performed By: #### C RESISTANCE MACHINE WELDER SETTER ####Main LaboratoryLake Xugr[address]165 [place] [address] Protein mass conc 6.8 g/dL Normal 5.9-7.9 [facility] Comment on above: Performed By: #### C RESISTANCE MACHINE WELDER SETTER ####Main LaboratoryLake Gxer[address]66 [place] [address] Sodium molar conc 140 mmol/L Normal 133-145 [facility] Comment on above: Performed By: #### C RESISTANCE MACHINE WELDER SETTER ####Main LaboratoryLake Ripr[address] [place] [address] Urea nitrogen mass conc 24 mg/dL Normal 8-25 [facility] Comment on above: Performed By: #### C RESISTANCE MACHINE WELDER SETTER ####Main LaboratoryLake Zayh[address]80 [place] [address] Urea nitrogen/Creatinine mass ratio 24.0 RATIO High 8-21 [facility] Comment on above: Performed By: #### C RESISTANCE MACHINE WELDER SETTER ####Main LaboratoryLake Psen[address]644 [place] [address] ANKLE LT 2 VIEWon 04-20-2018 Protein mass conc *FINAL Date of Service: 04/20/2018 15:19 Adm #: [id number] Dr:WANDER Garcia Dr: WANDER SOLOMONUPROCEDURE: ANKLE LT [...] by/Date: NO ADDENDUMAddendum Electronically Signed by/Date: Normal [facility] HEMOGLOBIN,HCTon 04-20-2018 Hematocrit Auto Volume Fraction (Bld) Normal 41-50 [facility] Comment on above: Result Comment: 42.3 Performed at [facility] [address] [place] [address] Performed By: #### H H ####[address] [place] [address] Hemoglobin mass conc (Bld) 12.9 g/dL Low 13.5-16.5 [facility] Comment on above: Performed By: #### H H ####Z[address]wjifp6660 [place] [address] POCT GLUCOSEon 04-20-2018 Glucose mass conc 191 mg/dL High 65-99 [facility] Comment on above: Performed By: #### P CGL ####[facility] [place] [address] Glucose mass conc 154 mg/dL High 65-99 [facility] Comment on above: Performed By: #### P CGL ####[facility] [place] [address] [facility] Surgicalon 04-20-20 18 [facility] Patient Name: SHEREE CAICEDO#: [id number] #[id number]:1: Left ankle joint2: Left subtalar jointGross Description1. [...] Signed Out By Denise Goddard M.D. Normal [facility] Comment on above: Performed By: #### C RESISTANCE MACHINE WELDER SETTER ####[place] [address] [place] [address] CBC WITHOUT DIFFon 10-30-201 8 Erythrocyte distribution width Auto Ratio (RBC) 15.5 % High 11.7-15.0 [facility] Comment on above: Performed By: #### C BCN ####[place] [address] [place] [address] Hematocrit Auto Volume Fraction (Bld) 45.1 % Normal 41-50 [facility] Comment on above: Performed By: #### C BCN ####[place] [address] [place] [address] Hemoglobin mass conc (Bld) 14.2 g/dL Normal 13.5-16.5 [facility] Comment on above: Performed By: #### C BCN ####[place] [address] [place] [address] MCH Auto Entitic mass (RBC) 28.9 pg Normal 26-34 [facility] Comment on above: Performed By: #### C BCN ####[facility] Centerscroll kit Byrm[address] [facility] [place] [address] MCHC Auto mass conc (RBC) 31.5 % Normal 31-37 [facility] Comment on above: Performed By: #### C BCN ####[facility] Centerscroll kit [place] [address] [place] [address] MCV Auto Entitic volume (RBC) 91.7 fL Normal 80-100 [facility] Comment on above: Performed By: #### C BCN ####[facility] LaboratoryLake Uncb[address]70 [place] [address] MEAN PLT VOL 10.7 CU Normal 7.0-12.6 [facility] Comment on above: Performed By: #### C BCN ####[facility] LaboratoryMdke Kyaj[address]115 [place] [address] NRBC'S Normal 0 [facility] Comment on above: Result Comment: 0Per formed at [facility] [address] [place] [address] Performed By: #### C BCN ####[facility] LaboratoryLake Pkow[address] Avilloaurora [place] [address] Platelets Auto #/vol (Bld) 192 10*3/uL Normal 150-450 [facility] Comment on above: Performed By: #### C BCN ####[facility] LaboratoryLake Jvdt[address] Avilloaurora [place] [address] RBC Auto #/vol (Bld) 4.92 M/UL Normal 4.5-5.5 [facility] Comment on above: Performed By: #### C BCN ####[facility] LaboratoryLake Kbqf[address] Avilloaurora [place] [address] RDW-SD 52.3 FL Normal 37.0-54.0 [facility] Comment on above: Performed By: #### C BCN ####[facility] LaboratoryMdke Qfpe[address]68 [address] AvTammyaurora [place] [address] WBC Auto #/vol (Bld) 4.8 10*3/uL Normal 4.5-11.0 [facility] Comment on above: Performed By: #### C BCN ####[facility] LaboratoryLake Jhrd[address]497 [place] [address] COMPREHENSIVE METABOLIC PANE Johnny 04-17-2018 Albumin mass conc 3.6 g/dL Normal 3.5-5.0 [facility] Comment on above: Performed By: #### C RESISTANCE MACHINE WELDER SETTER ####[facility] LaboratoryLake Ukhd[address]673 [place] [address] Albumin/Globulin mass ratio 0.9 {ratio} Low 1.5-3.0 [facility] Comment on above: Performed By: #### C RESISTANCE MACHINE WELDER SETTER ####Main LaboratoryLake Kavw[address]28 [place] [address] ALP enzyme act/vol 83 U/L Normal 35-125 [facility] Comment on above: Performed By: #### C RESISTANCE MACHINE WELDER SETTER ####Main LaboratoryLake Lhsh[address]25 [place] [address] ALT enzyme act/vol 8 U/L Normal 5-40 [facility] Comment on above: Performed By: #### C RESISTANCE MACHINE WELDER SETTER ####Main LaboratoryLake Jpfj15529 [place] [address] Anion gap 3 molar conc 8 mmol/L Normal 0-19 [facility] Comment on above: Performed By: #### C RESISTANCE MACHINE WELDER SETTER ####Main LaboratoryLake Frso[address]177 [place] [address] AST enzyme act/vol 13 U/L Normal 5-40 [facility] Comment on above: Performed By: #### C RESISTANCE MACHINE WELDER SETTER ####[facility] LaboratoryLake Kpxk99728 [place] [address] Bilirubin mass conc 0.5 mg/dL Normal 0.1-1.2 [facility] Comment on above: Performed By: #### C RESISTANCE MACHINE WELDER SETTER ####Main LaboratoryLake Yubm[address]79 [place] [address] Calcium mass conc 9.1 mg/dL Normal 8.5-10.4 [facility] Comment on above: Performed By: #### C RESISTANCE MACHINE WELDER SETTER ####[facility] LaboratoryLake Jsci59209 [place] [address] Chloride molar conc 101 mmol/L Normal 97-107 [facility] Comment on above: Performed By: #### C RESISTANCE MACHINE WELDER SETTER ####Main LaboratoryLake Moxl[address]503 [place] [address] CO2 molar conc 32 mmol/L High 24-31 [facility] Comment on above: Performed By: #### C RESISTANCE MACHINE WELDER SETTER ####Main LaboratoryLake Uvec[address]198 [place] [address] Creatinine mass conc 0.9 mg/dL Normal 0.4-1.6 [facility] Comment on above: Performed By: #### C RESISTANCE MACHINE WELDER SETTER ####[facility] Centerke Xxho[address]871 [address] [place]Cleveland [place] [address] GFR/1.73 sq M.predicted MDRD vol rate/area Normal [facility] Comment on above: Result Comment: 90GF R ml/min/1.73m2 Stage -----90 160-89 230-59 315-29 4<15 5For -Americans, multiply EGFR result by 1.210Calculation not validated for patients under 18 years of age.Performed at [facility] [address] [address] [place] [address] Performed By: #### C RESISTANCE MACHINE WELDER SETTER ####[place] [id number] AvCleveland [place] [address] Globulin Calculated mass conc (S) 4.0 g/dL High 1.9-3.7 [facility] Comment on above: Performed By: #### C RESISTANCE MACHINE WELDER SETTER ####[facility] LaboratoryMdke Sktg50823 [place] [address] Glucose mass conc 143 mg/dL High 65-99 [facility] Comment on above: Performed By: #### C RESISTANCE MACHINE WELDER SETTER ####[facility] LaboratoryMdke Tqea[address] [place] [address] Potassium molar conc 5.0 mmol/L Normal 3.4-5.1 [facility] Comment on above: Performed By: #### C RESISTANCE MACHINE WELDER SETTER ####[facility] LaboratoryMdke Zmun[address]048 [place] [address] Protein mass conc 7.6 g/dL Normal 5.9-7.9 [facility] Comment on above: Performed By: #### C RESISTANCE MACHINE WELDER SETTER ####[facility] LaboratoryMdke Epvr[address]672 [place] [address] Sodium molar conc 141 mmol/L Normal 133-145 [facility] Comment on above: Performed By: #### C RESISTANCE MACHINE WELDER SETTER ####[facility] LaboratoryLake Hlsr18273 [place] [address] Urea nitrogen mass conc 26 mg/dL High 8-25 [facility] Comment on above: Performed By: #### C RESISTANCE MACHINE WELDER SETTER ####[facility] LaboratoryLake Gtiv11922 [place] [address] Urea nitrogen/Creatinine mass ratio 28.9 RATIO High 8-21 [facility] Comment on above: Performed By: #### C RESISTANCE MACHINE WELDER SETTER ####Main [place] [id number] [place] [address] Vital Signs Date Time Vital Sign Value Performing Clinician Eliot blake 09-08-2022 07:23-0400 Blood Pressure Cuff Size JEREMIE GRIMM MD [address] [place] [address] 09-08-2022 07:23-0400 Blood Pressure Location JEREMIE GRIMM MD [address] [place] [address] 09-08-2022 07:23-0400 Blood Pressure Method JEREMIE GRIMM MD [address] [place] [address] 09-08-2022 07:23-0400 Body height 177.8 cm JEREMIE GRIMM MD [address] [place] [address] 09-08-2022 07:23-0400 Body temperature 98.6 [degF] JEREMIE GRIMM MD [address] [place] [address] 09-08-2022 07:23-0400 Body weight 155 kg JEREMIE GRIMM MD [address] [place] [address] 09-08-2022 07:23-0400 Body weight 49.03 kg/m2 JEREMIE GRIMM MD [address] [place] [address] 09-08-2022 07:23-0400 Diastolic Blood Pressure Non-Invasive 67 1 JEREMIE GRIMM MD [address] [place] [address] 09-08-2022 07:23-0400 Heart rate 73 /min JEREMIE GRIMM MD [address] [place] [address] 09-08-2022 07:23-0400 Respiratory rate 20 /min JEREMIE GRIMM MD [address] [place] [address] 09-08-2022 07:23-0400 Systolic Blood Pressure Non-Invasive 145 1 JEREMIE GRIMM MD [facility] 08-19-2022 18:31-0500 Body temperature 97.88 [degF] DR WILY BENITEZ MD [facility] 08-19-2022 18:31-0500 Diastolic Blood Pressure Non-Invasive [address] WILY BENITEZ MD [facility] 08-19-2022 18:31-0500 Heart rate 59 /min DR WILY BENITEZ MD [facility] 08-19-2022 18:31-0500 Reason For Taking VItal Signs DR WILY BENITEZ MD [facility] 08-19-2022 18:31-0500 Respiratory rate 18 /min DR WILY BENITEZ MD [facility] 08-19-2022 18:31-0500 Systolic Blood Pressure Non-Invasive [address] WILY BENITEZ MD [facility] 08-19-2022 18:20-0500 Heart rate 60 /min DR WILY BENITEZ MD [facility] 08-19-2022 17:05-0500 Diastolic Blood Pressure Non-Invasive [address] WILY BENITEZ MD [facility] 08-19-2022 17:05-0500 Heart rate 58 /min DR WILY BENITEZ MD [facility] 08-19-2022 17:05-0500 Systolic Blood Pressure Non-Invasive [address] WILY BENITEZ MD [facility] 08-19-2022 16:32-0500 Diastolic Blood Pressure Non-Invasive [address] WILY BENITEZ MD [facility] 08-19-2022 16:32-0500 Systolic Blood Pressure Non-Invasive [address] WILY BENITEZ MD [address] 08-19-2022 15:19-0500 Body temperature 96.8 [degF] DR WILY BENITEZ MD [address] [place] [address] 08-19-2022 15:19-0500 Reason For Taking VItal Signs DR WILY BENITEZ MD [address] [place] [address] 08-19-2022 15:19-0500 Respiratory rate 20 /min DR WILY BENITEZ MD [address] [place] [address] 08-19-2022 14:42-0500 Respiratory rate 20 /min DR WILY BENITEZ MD [address] [place] [address] 08-19-2022 11:21-05[address] Cuff Size DR WILY BENITEZ MD [address] [place] [address] 08-19-2022 11:21-[address] WILY BENITEZ MD [address] [place] [address] 08-19-2022 11:21-[address] WILY BENITEZ MD [address] 08-19-2022 11:21-0500 Body temperature 97.34 [degF] DR WILY BENITEZ MD [address] [place] [address] 08-19-2022 11:21-0500 Reason For Taking VItal Signs DR WILY BENITEZ MD [address] 08-19-2022 08:17-0500 Body temperature 97.34 [degF] DR WILY BENITEZ MD [address] [place] [address] 08-19-2022 04:19-0500 Body temperature 98.06 [degF] DR WILY BENITEZ MD [address] 08-18-2022 23:53-0500 Mean blood pressure 85 mm[Hg] DR WILY BENITEZ MD [address] [place] [address] 08-18-2022 18:11-0500 Body temperature 98.06 [degF] DR WILY BENITEZ MD [address] 08-18-2022 18:11-0500 Body weight 165.[address] WILY BENITEZ MD [address] [place] [address] 08-18-2022 14:41-0500 Body weight 167.[address] WILY BENITEZ MD [address] [place] [address] 08-18-2022 11:22-0500 Mean blood pressure 86 mm[Hg] DR WILY BENITEZ MD [address] [place] [address] 08-18-2022 11:16-[address] Cuff Size DR WILY BENITEZ MD [address] [place] [address] 08-18-2022 11:16-[address] WILY BENITEZ MD [address] [place] [address] 08-18-2022 11:16-0500 Body temperature 97.52 [degF] DR WILY BENITEZ MD [address] 08-18-2022 11:16-0500 Mean blood pressure 86 mm[Hg] DR WILY BENITEZ MD [address] [place] [address] 08-18-2022 08:36-0500 Body temperature 97.52 [degF] DR WILY BENITEZ MD [address] [place] [address] 08-18-2022 06:19-0500 Body temperature 97.34 [degF] DR WILY BENITEZ MD [address] [place] [address] 08-17-2022 07:40-[address] WILY BENITEZ MD [address] 08-17-2022 07:40-[address] WILY BENITEZ MD [address] [place] [address] 08-17-2022 05:32-0500 SaO2% (BldA) [Mass fraction] 94.1 % DR WILY BENITEZ MD [facility] 08-17-2022 04:23-[address] WILY BENITEZ MD [address] [place] [address] 08-16-2022 12:38-0500 Body weight [address] WILY BENITEZ MD [address] [place] [address] 08-15-2022 07:07-[address] Cuff Size DR WILY BENITEZ MD [address] [place] [address] 08-12-2022 13:01-0500 SaO2% (BldA) [Mass fraction] 93.6 % DR WILY BENITEZ MD [facility] 08-11-2022 08:12-0500 Heart rate 71 /min DR WILY BENITEZ MD [address] [place] [address] 08-10-2022 11:08-0500 Heart rate 71 /min DR WILY BENITEZ MD [address] [place] [address] 08-08-2022 08:44-0500 Heart rate 69 /min DR WILY BENITEZ MD [address] [place] [address] 08-07-2022 13:30-0500 SaO2% (BldA) [Mass fraction] 96.9 % DR WILY BENITEZ MD [facility] 08-07-2022 05:44-0500 SaO2% (BldA) [Mass fraction] 99.9 % DR WILY BENITEZ MD [facility] 08-06-2022 17:47-0500 Body height 177.[address] WILY BENITEZ MD [address] [place] [address] 08-06-2022 17:47-0500 Body weight 54.03 kg/m2 DR WILY BENITEZ MD [facility] 08-06-2022 11:04-0500 SaO2% (BldA) [Mass fraction] 97.1 % DR WILY BENITEZ MD [facility] Chem SS Encounters Encounter Date Encounter Type Care Provider Facility Start: 07-11-2024 End: 07-11-2024 ambulatory Dawson Pretty Facility:[facility] Start: 05-20-2024 ambulatory Sofia Forest Facility:[facility] Start: 05-20-2024 End: 05-20-2024 ambulatory Chidi [facility] SENIOR MILITARY ANALYST Facility:[facility] Start: 03-20-2024 End: 03-20-2024 ambulatory Dawson Pretty Facility:[facility] Start: 03-06-2024 ambulatory Dawson Pretty [facility] Start: 03-06-2024 ambulatory Sofia Forest Facility:[facility] Start: 03-06-2024 End: 03-09-2024 Evaluation and management of inpatient Dawson Pretty Facility:[facility] Start: 09-08-2022 End: 09-09-2022 ambulatory JEREMIE GRIMM MD Facility:[facility] Start: 09-08-2022 End: 09-08-2022 Patient encounter procedure JEREMIE GRIMM MD [facility] Start: 09-05-2022 ambulatory HILTON OLVERA MD Faci lity:B Start: 08-06-2022 End: 08-19-2022 Evaluation and management of inpatient DR DAWSON OLSEN MD Facility:[facility] Start: 08-06-2022 End: 08-19-2022 Evaluation and management of inpatient DR WILY BENITEZ MD [facility] Start: 06-08-[address] BOZENA MANZANARES [facility] Start: 04-20-2018 End: 04-20-2018 Patient encounter procedure CROW DIOR Facility:UNKNOWN Start: 04-17-2018 Patient encounter procedure CROW DIOR Facility:[facility] Start: 12-26-2016 End: 12-27-2016 Ambulatory KAILYN ENRIQUEZ [facility] Start: 12-21-2016 End: 12-22-2016 Ambulatory DAWSON OLSEN Facility:[facility] Procedures Date Procedure Procedure Detail Performing Clinician Start: 01-27-[address] WILY BENITEZ MD Start: 01-22-[address] LIBBY BENITEZ MD Comment on above: Extremely technicall y difficult study. EF cannot be accurately estimated even on definity images Start: 12-01-[address] LIBBY BENITEZ MD Comment on above: EF of [...] Immunization Date Immunization Notes Care Provider Fa [facility] 08-08-2022 influenza, high-dose , quadrivalent DR WILY BENITEZ MD [facility] 05-26-2018 influenza, injectabl e, quadrivalent, preservative free; Translations: [Fluarix Quadrivalent ] DR WILY BENITEZ MD [facility] Payers Date Payer Category Payer Unknown 0 2022 Self-pay 1955 Unknown [id number] 2.16.8 [id number] 1955 Unknown [id number] 2.16.8 [id number] 1955 Unknown [id number] 2.16.8 [id number] 1955 Unknown [id number] 2.16.8 [id number] 1955 Unknown [id number] 2.16.8 [id number] Unknown [id number] 2.16.8 40.1.813105.3.579.2.462 Unknown [id number] 2.16.8 [id number] Unknown [id number] 2.16.8 40.1.624446.3.579.2.462 Unknown [id number] 2.16.8 40.1.994312.3.579.2.462 Unknown [id number] 2.16.8 40.1.001605.3.579.2.462 Unknown [id number] 2.16.8 40.1.130591.3.579.2.462 Unknown [id number] 2.16.8 40.1.446204.3.579.2.462 Unknown [id number] 2.16.8 [id number] Unknown [id number] 2.16.8 [id number] Unknown [id number] 2.16.8 [id number] Unknown [id number] 2.16.8 [id number] Social History Date Type Detail Facility Start: 01-06-2021 Tobacco smoking status Never s moked tobacco (finding) [facility] Sex Assigned At Male [facility] Functional Status Date Assessment Result Facility 09-08-2022 Functional Status ID band on [facility] 08-19-2022 Functional Status Room located near [facility] 08-19-2022 Functional Status [facility] 08-19-2022 Functional Status Supervision [facility] 08-19-2022 Functional Status [facility] 08-18-2022 Functional Status [facility] 08-18-2022 Functional Status [facility] 08-18-2022 Functional Status [facility] 08-18-2022 Functional Status Hospital bed [facility] 08-17-2022 Functional Status [facility] 08-17-2022 Functional Status [facility] 08-17-2022 Functional Status Bed Bath One assist, Morales pervision [facility] 08-15-2022 Functional Status Lunch Percent 100 [facility] 08-15-2022 Functional Status Skin moisturiz er, CHG bath [facility] 08-14-2022 Functional Status [facility] 08-14-2022 Functional Status Roller walker [facility] 08-14-2022 Functional Status Done [facility] 08-13-2022 Functional Status [facility] 08-13-2022 Functional Status [facility] 08-12-2022 Functional Status Mod I [facility] 08-12-2022 Functional Status Ambulation Patient Effo rt Good [facility] 08-11-2022 Functional Status elevated on pillows [facility] 08-10-2022 Functional Status [facility] 08-08-2022 Functional Status Multilevel home [facility] 08-07-2022 Functional Status [facility] 08-06-2022 Functional Status N/A [facility] Mental Status Date Assessment Result Facility 09-08-2022 Mental Status Orientation Oriented x 4 [facility] 08-19-2022 Mental Status Orientation Oriented x 4 [facility] 08-19-2022 Mental Status [facility] 08-19-2022 Mental Status [facility] 08-18-2022 Mental Status Orientation Assessment Мария nted x 4 [facility] 08-18-2022 Mental Status [facility] 08-16-2022 Mental Status [facility] Clinical Notes 08-06-2022 to 03-09-2024 Note Date & Type Note Facility 03-09-2024 Note [facility] Medical Records Department [address] [place] [address] Discharge Summary 03/09/24 1232 MR#: [id number] Acct: [id number] Name: SHEREE MUNIZ Rep #: [id number] : 1955 68 From: Elver Bradley DO PCP: Dr. Dawson Olsen MD Status:ADM IN Location: [place] [address] Providers Date of Admission: 03/06/24 Date of [...] is a 68-year-old male who presented to [facility] ED on 03/06/2024 with worsening shortness of [...] However, was able to obtain records from [facility] on 03/07. Patient was hospitalized there in August 2022 with a heart failure exacerbation. Echo then showed EF 25 to 30%, severe diffuse hypokinesis, and grade 2 diastolic dysfunction. 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 Notably [...] hemodialysis ??? Creatinine 1.74 on admit. Reviewed [facility] hospitalization from August 2022 and patient had [...] Continue home B (more content not included)... [facility] 09-12-2022 Note ORIGINAL PROCEDURE: Removal of cuffed tunneled catheter CLINICAL STATEMENT: BRYANNA resolved, no longer requires hemodialysis FINANCIAL PROCESSING CLERK: Suzette Flores PA-C CATHETER LOCATION: Right chest [...] 09/12/2022 7:11:38 PM Ordering Provider: JEREMIE GRIMM [facility] [place] 09-08-2022 Evaluation + Plan note Extrac jeff [...] paper, which has been scanned into the [facility] PACS/RIS system. _ Future Appointments Appointment Date:09/20/2022 09:00:00 AM Scheduled Provider: Location:[facility] Appointment Type:CV OV CHF Appointment Date:10/14/2022 11:15:00 AM Scheduled Provider: Location:[facility] Appointment Type:CT Chest w/o Contrast Future Scheduled Tests Laboratory* Basic Metabolic Panel 12/27/21 * Complete Blood Count 12/27/21 Radiology* CT Angiography Chest w/ Contrast 12/07/21 * CT Thorax w/o Contrast 10/14/22 [facility] 03-23-2023 Note* Herminia Ott National Sales Director: SIGN, AUTHOR, PERFORM Event Display: IR Procedure Record Authored Date: [id number] IR Procedure Record Summary Primary Physician: SUZETTE FLORES PA-C Finalized Date/Time: 09/08/22 09:34:24 Pt. Name: SHEREE MUNIZ Gillian Kim/Sex: 1955 Male Med Rec #: [id number] Physician: Financial #: [id number] Pt. Type: O Room/Bed: / Admit/Disch: 09/08/22 07:08:00 - Institution: Allergies identified in patient's electronic medical record at time of printing on 09/08/22 Entry 1 Substance NKA Reaction Type Allergy Last Modified By: Kathryn Schaefer RN 05/24/16 14:12:02 Case Attendance- IR Entry 1 Entry 2 Case Attendee SUZETTE FLORES Terra L PA-C National Sales Director Role Performed Primary Surgeon Circulating Technologist Details Time In 09/08/22 08:05:00 09/08/22 08:05:00 Time Out 09/08/22 08:15:00 09/08/22 08:15:00 Procedure/Preference IR Tunneled Catheter IR Tunneled Catheter Card Removal W/O Pump SN Removal W/O Pump SN Last Modified By: Herminia Ott Terra L National Sales Director 09/08/22 National Sales Director 09/08/22 09:06:11 09:06:11 Radiology Procedures- IR Entry 1 Procedure/Preference IR Tunneled Catheter Actual Procedure IR TUNNELED CATHETER Card Removal W/O Pump SN REMOVAL W/O PUMP SN Primary Procedure Yes Primary Surgeon SUZETTE FLORES PA-C Anesthesia/Sedation None Type Additional Procedure Times Start 09/08/22 08:09:00 Stop 09/08/22 08:15:00 Specialty Service SN Radiology Procedure EBL 1 mL Last Modified By: Herminia Ott National Sales Director 09/08/22 09:06:58 Radiology Procedure Details - IR [...] X 4 Last Modified By: Herminia Ott National Sales Director 09/08/22 09:13:56 General Case Data - IR Entry 1 Case Information Room IR 16 Case Level IR Level 2 Wound Class None Specialty SN Radiology Procedure ASA Class None Diagnosis Preop Diagnosis acute renal failure Postop Same As Preop Yes Postop Diagnosis acute renal failure Last Modified By: Herminia Ott Limbo 09/08/22 09:06:45 Procedure Case Times- IR Entry 1 Patient In Procedure Patient In OR 09/08/22 08:05:00 Patient Out of OR 09/08/22 08:15:00 Procedure Start/Stop Procedure Start Time 09/08/22 08:09:00 Procedure Stop Time 09/08/22 08:15:00 Last Modified By: Herminia Ott Limbo 09/08/22 09:04:10 Immediate Post Procedure Note - IR Entry 1 Immediate Post Yes Findings Right chest tunneled HD Procedure Note cath removal, no lido displayed for Physician to review Closure Technique Closure Technique Other than Primary Last Modified By: Herminia Ott Limbo 09/08/22 09:34:22 Immediate Post Procedure Note - IR Signed By: SUZETTE FLORES-C 09/08/22 09:33 Allergy Information- IR Entry 1 Allergies Reviewed? Yes Allergies Reviewed Medical Record With Last Modified By: Herminia Ott Limbo 09/08/22 09:02:51 Radiology Protocols/Time Out- IR Entry [...] symptoms of electrical injury. Outcomes Met? Yes Moth Proofer Herminia Ott National Sales Director Procedure Plan Last Modified By: Herminia Ott 09/08/22 09:06:29 Case Comments <None> Finalized By: Herminia Ott Document Signatures Signed By: Herminia Ott 09/08/22 09:34 [facility] 03-23-2023 Hospital Discharge instructions Patient Education 09/08/2022 08:19:43 Radiology- Tunnel Catheter Removal 10/02/2019 (CUSTOM) ALEXIS Tunnel Catheter Removal Discharge Instructions Interventional Radiology [facility] Imaging Services [address] [place] [address] DIET: ?Resume your regular diet as tolerated. [...] 1 to 2 days following the procedure. ?Ohfh-let-oaclbnu pain medication should be used for pain [...] MD, [facility] Address: [facility] [address] [place] [address]- When: Unknown Comments:Follow-up as scheduled [facility] 03-23-2023 Note IR Procedure Record Summary Primary Physician: SUZETTE FLORES PA-C Finalized Date/Time: 09/08/22 09:34:24 Pt. Name: SHEREE MUNIZ/Sex: 1955 Male Med Rec #: [id number] Physician: Financial #: [id number] Pt. Type: O Room/Bed: / Admit/Disch: 09/08/22 07:08:00 - Institution: Allergies identified in patient's electronic medical record at time of printing on 09/08/22 Entry 1 Substance NKA Reaction Type Allergy Last Modified By: Kathryn Schaefer RN 05/24/16 14:12:02 Case Attendance- IR Entry 1 Entry 2 Case Attendee SUZETTE FLORES Terra L PA-C National Sales Director Role Performed Primary Surgeon Circulating Technologist Details Time In 09/08/22 08:05:00 09/08/22 08:05:00 Time Out 09/08/22 08:15:00 09/08/22 08:15:00 Procedure/Preference IR Tunneled Catheter IR Tunneled Catheter Card Removal W/O Pump SN Removal W/O Pump SN Last Modified By: Herminia Ott Terra L National Sales Director 09/08/22 National Sales Director 09/08/22 09:06:11 09:06:11 Radiology Procedures- IR Entry 1 Procedure/Preference IR Tunneled Catheter Actual Procedure IR TUNNELED CATHETER Card Removal W/O Pump SN REMOVAL W/O PUMP SN Primary Procedure Yes Primary Surgeon SUZETTE FLORES PA-C Anesthesia/Sedation None Type Additional Procedure Times Start 09/08/22 08:09:00 Stop 09/08/22 08:15:00 Specialty Service SN Radiology Procedure EBL 1 mL Last Modified By: Herminia Ott National Sales Director 09/08/22 09:06:58 Radiology Procedure Details - IR [...] X 4 Last Modified By: Herminia Ott National Sales Director 09/08/22 09:13:56 General Case Data - IR Entry 1 Case Information Room IR 16 Case Level IR Level 2 Wound Class None Specialty SN Radiology Procedure ASA Class None Diagnosis Preop Diagnosis acute renal failure Postop Same As Preop Yes Postop Diagnosis acute renal failure Last Modified By: Herminia Ott National Sales Director 09/08/22 09:06:45 Procedure Case Times- IR Entry 1 Patient In Procedure Patient In OR 09/08/22 08:05:00 Patient Out of OR 09/08/22 08:15:00 Procedure Start/Stop Procedure Start Time 09/08/22 08:09:00 Procedure Stop Time 09/08/22 08:15:00 Last Modified By: Herminia Ott Limbo 09/08/22 09:04:10 Immediate Post Procedure Note - IR Entry 1 Immediate Post Yes Findings Right chest tunneled HD Procedure Note cath removal, no lido displayed for Physician to review Closure Technique Closure Technique Other than Primary Last Modified By: Herminia Ott Limbo 09/08/22 09:34:22 Immediate Post Procedure Note - IR Signed By: SUZETTE FLORES PA-C 09/08/22 09:33 Allergy Information- IR Entry 1 Allergies Reviewed? Yes Allergies Reviewed Medical Record With Last Modified By: Herminia Ott Limbo 09/08/22 09:02:51 Radiology Protocols/Time Out- IR Entry [...] Pump SN Last Modified By: Herminia Ott Limbo 09/08/22 09:04:51 Skin Prep- IR Entry 1 Procedure IR Tunneled Catheter Removal W/O Pump SN Skin Prep Prep Area Chest Side Right By SUZETTE FLORES Prep Agents Chloraprep PA-C Hair Removal Method N/A Last Modified By: Herminia Ott Limbo 09/08/22 09:05:14 Patient Positioning- IR Entry 1 Procedure IR Tunneled Catheter Body Position OP Supine Removal W/O Pump SN Feet Uncrossed? Yes Pressure Points Yes Checked Last Modified By: Herminia Ott National Sales Director 09/08/22 09:05:33 Radiology Procedure Plan - IR [...] symptoms of electrical injury. Outcomes Met? Yes Moth Proofer Herminia Ott Limbo Procedure Plan Last Modified By: Herminia Ott 09/08/22 09:06:29 Case Comments Finalized By: Herminia Ott Document Signatures Signed By: Herminia Ott 09/08/22 09:34 [id number] Summary of episode note Discharge Instructions Thank you for allowing [facility] to assist you with your healthcare needs. The following is importantdischarge information regarding your hospital visit. Your Care Team PRETTY CHIELL, DAWSON Raman What to do next Scheduled Follow-Up Appointments Appointment Type When Where Contact InformationCV OV CHF 09/20/2022 09:00 AM EDT [facility] Chest w/o Contrast 10/14/2022 11:15 AM EDT [facility] [phone] Follow Up Appointments Follow Up with JEREMIE GRIMM MD, [facility] When Why: Follow-up as scheduled Where: [facility] [address] [place] [address]- Allergies NKA Medications Please ask your primary [...] medication providers or retail pharmacies. Education Materials ALEXIS Tunnel Catheter Removal Discharge Instructions Interventional Radiology [facility] [address] [place] [address] DIET: ? Resume your regular diet as [...] to 2 days following the procedure. ? Wgrm-rmb-ykoxitf pain medication should be used for pain [...] to receive it can visit one of [facility] vaccine clinics. There are many vaccine clinic locations within the [facility]. For locations and available times, please visit [email or web address] It is important to note that some COVID mobile vaccine clinics are held outdoors and may be canceled in rainy or stormy conditions. To learn more about pediatric vaccinations (ages 5-11), we invite you to visit the [employer] webpage. https://www.[employer].org/pages/4267-Tanwb-Otvlajfiivd-Acuodkyhed-Tqbnn-Kxq stions.htmlTo learn more about the COVID-19 vaccine, we invite you to visit the CDC website for a list of frequently asked questions. https://www.cdc.gov/coronavirus/2019-ncov/vaccines/faq.html [facility] Patient Portal Access Instructions: Stay connected with your healthcare team and access your personal medical information anytime with the [facility] Patient Portal.If you would like a full copy of your medical records, please contact the [facility] Medical Records Department, Monday through Monday between 8a.m. and 4:30p.m. Please follow the directions below to access the portal: 1.Access the email account you provided upon registration to the hospital.2.Look for an invitation email from [facility].3.Open the email and access the invitation link: Accept Invitation to [facility].Fill in the required dickinson to create your account. Sign into [email or web address] with your username and password that you [...] you will allow to register on the [facility] Patient Portal for access to your information. You can also access the [facility] Patient Portal on the [employer] sveta. Simply click on Health Records under [employer] and then click on the [employer] logo. HOW TO SAFELY DISPOSE OF PRESCRIPTION [...] Call your local pharmacy or go to http://CellAegis Devices.Pager/0E9Lp1s to find one close to you.3.Make use of household items: Use cat litter or old coffee grounds to dispose medications if other options arenot available. Mix your drugs with these household products, seal them in an airtight container andthrow it into the garbage. Call [facility]: [phone] to be sure your drugs can be [...] am aware that I should contactmy doctor. Patient/Clerical And Administrative Workers Signature: Date/Time: Relationship to Patient: Witness Name/Signature: Date/Time: [id number] History and physical note IR PREPROCEDURE H&P [...] paper, which has been scanned into the [facility] PACS/RIS system. _ Digitally Signed by REBEKAH GIL PA-C on 09/08/2022 07:40 AM Digitally Signed by SHAMIKA DYKES MD on 09/08/2022 10:04 AM [id number] NoteORIGINAL PROCEDURE: Conversion of temporary to tunneled hemodialysis catheter with fluoroscopy FINANCIAL PROCESSING CLERK: Suzette Flores PA-C CLINICAL STATEMENT: Non-oliguric BRYANNA [...] Sign Date: 08/21/2022 9:15:05 PM Ordering Provider: [facility]08-19-2022 Hospital Discharge instructions Patient Education 08/19/2022 17:59:25 [...] symptoms. Follow these instructions at home: Take kpxj-ges-zplbtfa and prescription medicines only as told by your health care provider. Weigh yourself daily. Your target weight is lb ( kg). ?Call your health care provider if you gain more than lb ( kg) in a day, or more than lb ( kg) in one week. Eat a heart-healthy diet. Work with a diet and retina subspecialist (dietitian) to create an eatingplan that is best for you. Keep all follow-up visits as told by your health care provider. This is important. Where to find more information [place] [employer]: www.heart.org Summary Follow the action [...] 07/15/2017 Document Revised: 05/18/2018 Document Reviewed: 07/15/2017 [employer] Patient Education 2020 [employer]. 08/19/2022 17:59:02 Dialysis Dialysis Dialysis is a [...] limit your fluid intake. A diet and retina subspecialist (dietitian) can help you make a meal [...] find more information National Kidney Foundation: www.kidney.org [place] [employer] Patients: www.aakp.org [place] [employer]: www.kidneyfund.org Summary During dialysis, wastes, [...] 08/26/2003 Document Revised: 10/22/2019 Document Reviewed: 08/01/2017 [employer] Patient Education 2020 [employer]. 08/19/2022 17:58:59 Central Line Dialysis Access Placement, [...] and water are not available, use hand architectural project manager. ?Change your dressing as told by your [...] 2 3 times a day. Medicines Take tppg-tqu-ubnpujk and prescription medicines only as told by [...] 01/17/2005 Document Revised: 05/18/2018 Document Reviewed: 02/27/2017 Novitaz Patient Education 2020 [employer]. Follow Up Care 08/06/2022 09:21:49 With:MATT JIN Address: [address] [facility] [address] [place] [address] [phone] Business (1) When:Within 2 Week(s) With:Outpatient Dialysis at [facility]: [address] [place] [address]. . Monday, Monday, Monday @ 1pm. Address:Unknown When:1-2 days With:DAWSON OLSEN Address: [address] [address], [place] [address]- When:1-2 days [facility] 03-03-2023 Note Discharge Instructions Thank you for allowing [facility] to assist you with your healthcare needs. The following is importantdischarge information regarding your hospital visit. Your Care Team DAWSON OLSEN MD Your Diagnosis SOB - Shortness of breath What to do next Follow Up Appointments Follow Up with MATT JIN When In 2 weeks Where: [address] [facility] [address] [address] [phone] Business (1) Follow Up with Outpatient Dialysis at [facility]: [address] [place] [address]. . Monday, Monday, Monday @ 1pm. When Within 1-2 days Follow Up with DAWSON OLSEN When Within 1-2 days Where: [address] [address] [place] [address]- The Following Activity and Diet Have Been [...] a day with a meal Pickup at [facility] Unchanged carvedilol (carvedilol 25 mg oral [...] 20 units BG >300, 25units Pharmacy Information [facility]: [address] [place] [address] [phone] What How Much When Comments Stop Taking [...] What is aspirin? Aspirin is a salicylate (hg-VKG-mv-ate) that is used to treat pain, and [...] may report side effects to FDA at 4-022-CJG-0902. What other drugs will affect aspirin? Ask [...] drugs may affect aspirin, including prescription and linl-rxn-hbyknpe medicines, vitamins, and herbal products. Not all [...] to ensure that the information provided by [employer]. ('Multum') is accurate, up-to-date, and complete, but no guarantee is made to that effect. Drug information contained herein may be time sensitive. [facility] information has been compiled for use by healthcare practitioners and consumers in the [place] and therefore [facility] does not warrant that uses outside of the [place] are appropriate, unless specifically indicated otherwise. BRANDiD - Shop. Like a Man.s drug information does not endorse drugs, diagnose patients or recommend therapy. [employer] Prints drug information isan informational resource designed to [...] effective or appropriate for any given patient. [facility] does not assume any responsibility for any aspect of healthcare administered with the aid of information [facility] provides. The information contained herein is not intended to cover all possible uses, directions, precautions, warnings, drug interactions, allergic reactions, or adverse effects. If you have questions about the drugs you are taking, check with your doctor, nurse or pharmacist. Copyright 7741-5219 [employer]. Version: 16.03. Revision Date: 12/14/2020. Education Materials [...] symptoms. Follow these instructions at home: Take butn-svj-ynqsplg and prescription medicines only as told by your health care provider. Weigh yourself daily. Your target weight is lb ( kg). ? Call your health care provider if you gain more than lb ( kg) in a day, or more than lb ( kg) in one week. Eat a heart-healthy diet. Work with a diet and retina subspecialist (dietitian) to create an eatingplan that is best for you. Keep all follow-up visits as told by your health care provider. This is important. Where to find more information [place] [employer]: www.heart.org Summary Follow the action [...] 07/15/2017 Document Revised: 05/18/2018 Document Reviewed: 07/15/2017 Novitaz Patient Education 2020 [employer] Inc. Dialysis Dialysis is a procedure that [...] limit your fluid intake. A diet and retina subspecialist (dietitian) can help you make a meal [...] find more information National Kidney Foundation: www.kidney.org [place] [employer]: www.aakp.org [employer]: www.kidneyfund.org Summary During dialysis, wastes, [...] 08/26/2003 Document Revised: 10/22/2019 Document Reviewed: 08/01/2017 ElseBuzzDoes Patient Education 2020 Novitaz Inc. Central Line Dialysis Access Placement, Care [...] and water are not available, use hand architectural project manager. ? Change your dressing as told by [...] 2 3 times a day. Medicines Take wnwl-pzl-noxdgez and prescription medicines only as told by [...] 01/17/2005 Document Revised: 05/18/2018 Document Reviewed: 02/27/2017 Novitaz Patient Education 2020 Novitaz Inc. Additional Information VACCINATE! IT SAVES LIVES! Members of the community who have not yet received the COVID-19 vaccine and would like to receive it can visit one of [facility] vaccine clinics. There are many vaccine clinic locations within the [facility]. For locations and available times, please visit https://gettheshot.coronavirus.[place].gov/. It is important to note that some COVID mobile vaccine clinics are held outdoors and may be canceled in rainy or stormy conditions. To learn more about pediatric vaccinations (ages 5-11), we invite you to visit the [facility] webpage. https://www.[facility].org/pages/0335-Obokr-Jahaqtxozrw-Zhgamkoemu-Fcwah-Alp stions.htmlTo learn more about the COVID-19 vaccine, we invite you to visit the CDC website for a list of frequently asked questions. https://www.cdc.gov/coronavirus/2019-ncov/vaccines/faq.html [facility] Patient Portal Access Instructions: Stay connected with your healthcare team and access your personal medical information anytime with the [facility] Patient Portal.If you would like a full copy of your medical records, please contact the [facility] Medical Records Department, Monday through Monday between 8a.m. and 4:30p.m. Please follow the directions below to access the portal: 1.Access the email account you provided upon registration to the [facility].2.Look for an invitation email from [facility].3.Open the email and access the invitation link: Accept Invitation to [facility]4.Fill in the required dickinson to create your account. Sign into [email or web address].vChatter with your username and password that you [...] you will allow to register on the [facility] Patient Portal for access to your information. You can also access the [facility] Patient Portal on the [employer] sveta. Simply click on Health Records under IntroFlyData and then click on the [employer] logo. HOW TO SAFELY DISPOSE OF PRESCRIPTION [...] Call your local pharmacy or go to http://bit.Pager/0G6Sv5q to find one close to you.3.Make use of household items: Use cat litter or old coffee grounds to dispose medications if other options arenot available. Mix your drugs with these household products, seal them in an airtight container andthrow it into the garbage. Call [facility]: [phone] to be sure your drugs can be [...] am aware that I should contactmy doctor. Patient/Clerical And Administrative Workers Signature: Date/Time: Relationship to Patient: Witness Name/Signature: Date/Time: [facility]Zm[facility]ymo[facility] Note IR Procedure Record Summary Primary Physician: SUZETTE FLORES PA-C Finalized Date/Time: 08/19/22 14:25:10 Pt. Name: SHEREE MUNIZ Gillian Kim/Sex: 1955 Male Med Rec #: [id number] Physician: WILY BENITEZ MD Financial #: [id number] Pt. Type: I Room/Bed: [facility]/A Admit/Disch: 08/06/22 09:19:52 - Institution: Allergies identified [...] 14:21:54 08/19/22 14:21:54 Entry 4 Case Attendee DENISE Macario Role Performed Procedure Nurse Details Time [...] Out PA-C, Jessica Frazier Relevant images and National Sales Director, Bollon, Rad results are properly Tech Amirah [...] 1 Implant/Explant Implant Implant Description CATH HEMO-FLOW [id number] 5/BX [id number] Wasted? No Lot Number [id number] Food Service Driver medcomp Size 14.5f x 32cm Expiration Date [...] Radiology - Action Plan Outcomes Met? Yes Moth Proofer DENISE Macario Completing Procedure Plan Last Modified By: DENISE Macario 08/19/22 14:10:36 Case Comments Finalized By: DENISE Macario Document Signatures Signed By: DENISE Macario 08/19/22 14:25 [facility] CenterUuvbuntj56-42-7165 Nephrology Progress note Date of Service 08/19/2022 [...] Dialysis today. PermCath placement by IR today. tutoring manager/SW working on making outpatient dialysis arrangements at [facility] dialysis unit. Okay to discharge the patient from renal standpoint once those arrangements are made and PermCath is in place. Discussed with patient, at bedside at length. Also discussed with Dr. Jin and nursing staff.Will follow. Digitally Signed by JEREMIE GRIMM MD on 08/19/2022 01:17 PM [facility] CenterIcdsylum98-52-2361 Cardiology Progress note Date of Service 08/18/2022 [...] GREG NAVARRO MD on 08/18/2022 01:44 PM [facility] CenterQxwbosox57-22-8925 Cardiology Progress note Date of Service 08/18/2022 [...] GREG NAVARRO MD on 08/18/2022 01:44 PM [facility] CenterZxzisigm40-44-4148 Nephrology Progress note Date of Service 08/18/2022 [...] JEREMIE GRIMM MD on 08/18/2022 11:21 AM [facility] CenterXptjyker48-10-2635 Cardiology Progress note Date of Service 08/17/2022 [...] GREG NAVARRO MD on 08/17/2022 05:11 PM [facility] CenterSwacfugb83-74-8471 Cardiology Progress note Date of Service 08/17/2022 [...] GREG NAVARRO MD on 08/17/2022 05:11 PM [facility] CenterJcqnzyqa06-08-5558 Pulmonary Progress note Date of Service 08/17/2022 [...] months to follow-up for resolution - Uses [facility]; may need different homegoing NIV, ? Trilogy Mark Mchugh M.D., [facility] Digitally Signed by MARK MCHUGH MD on 08/17/2022 03:48 PM [facility] CenterTlmarpmc32-18-2066 Nephrology Progress note Date of Service 08/17/2022 [...] length. Also discussed with Dr. Jin and case making machine operator. Will follow. Digitally Signed by JEREMIE GRIMM MD on 08/17/2022 12:44 PM [facility] CenterUtcvzsmg33-13-4968 Cardiology Progress note Date of Service 08/16/2022 [...] GREG NAVARRO MD on 08/16/2022 04:45 PM [facility] CenterTjyetrbo47-29-0897 Pulmonary Progress note Date of Service 08/16/2022 [...] to follow-up for resolution Mark Mchugh M.D., [facility] Digitally Signed by MARK MCHUGH MD on 08/16/2022 04:36 PM [place] [address]-28-2023 Cardiology Progress note Date of Service 08/16/2022 [...] GREG NAVARRO MD on 08/16/2022 04:45 PM [facility] CenterItuauiop32-83-7122 Nephrology Progress note Date of Service 08/16/2022 [...] JEREMIE GRIMM MD on 08/16/2022 04:01 PM [facility] CenterTldaovdb10-73-8204 Cardiology Progress note Date of Service 08/15/22 [...] GREG NAVARRO MD on 08/15/2022 05:35 PM [facility] CenterTnmyljvd53-78-6768 Nephrology Progress note Date of Service 08/15/2022 [...] by SOFI LAW on 08/15/2022 11:51 AM [facility] CenterIpxikkgw44-97-0481 Cardiology Progress note Date of Service 08/15/22 [...] GREG NAVARRO MD on 08/15/2022 05:35 PM [facility] CenterRiivqnwo28-87-7702 Nephrology Progress note Date of Service 08/15/2022 [...] by SOFI LAW on 08/15/2022 11:51 AM [facility] CenterKhejgouf65-70-9967 Cardiology Progress note Date of Service 08/14/2022 [...] ROLAND FOUNTAIN MD on 08/14/2022 01:00 PM [facility] CenterJeephmir08-07-9745 Cardiology Progress note Date of Service 08/13/2022 [...] ROLAND FOUNTAIN MD on 08/13/2022 05:01 PM [facility] CenterMmorcaai23-88-6281 Cardiology Progress note Date of Service 08/09/2022 [...] ROLAND FOUNTAIN MD on 08/09/2022 01:00 PM [facility] CenterVjetuihh85-02-3686 Cardiology Progress note Date of Service 08/10/2022 Subjective Patient seen and examined at bedside. Complaining of worsening shortness of breath. Urine output [id number] mL in the last 24 hours. He [...] ROLAND FOUNTAIN MD on 08/10/2022 03:07 PM [facility] CenterLcbkbszv34-68-1160 Cardiology Progress note Date of Service 08/11/22 [...] ROLAND FOUNTAIN MD on 08/11/2022 01:45 PM [facility] CenterSobrrwzk37-69-2783 Cardiology Progress note Date of Service 08/14/2022 [...] ROLAND FOUNTAIN MD on 08/14/2022 01:00 PM [facility] CenterWeloqepu42-66-6428 Pulmonary Progress note Date of Service 08/14/22 [...] HILTON OLVERA MD on 08/14/2022 11:53 AM [facility] CenterOiurbjyy81-16-1871 Nephrology Progress note Date of Service 08-13-22 [...] MARY DODD MD on 08/13/2022 04:52 PM [facility] CenterMmugdize82-99-5919 Cardiology Progress note Date of Service 08/13/2022 [...] ROLAND FOUNTAIN MD on 08/13/2022 05:01 PM [facility] CenterMnutbrmk14-35-8207 Pulmonary Progress note Date of Service 08/13/22 [...] HILTON OLVERA MD on 08/13/2022 08:46 AM [facility] CenterSoapvgon46-30-4462 Cardiology Progress note Date of Service 08/12/22 [...] ROLAND FOUNTAIN MD on 08/12/2022 02:23 PM [facility] CenterBanbvwwy69-54-1599 NoteORIGINAL PROCEDURE: TEMPORARY DIALYSIS CATHETER WITH ULTRASOUND AND FLUOROSCOPIC GUIDANCE: 08/10/2022 FINANCIAL PROCESSING CLERK: Rebekah Gil PA-C CLINICAL STATEMENT: FAITH Gabriel [...] Sign Date: 08/12/2022 7:05:53 PM Ordering Provider: [facility])08-12-2022 Note ORIGINAL PROCEDURE: TEMPORARY DIALYSIS CATHETER WITH ULTRASOUND AND FLUOROSCOPIC GUIDANCE: 08/10/2022 FINANCIAL PROCESSING CLERK: Rebekah Gil PA-C CLINICAL STATEMENT: [place] Harvey [...] Sign Date: 08/12/2022 7:05:53 PM Ordering Provider: [facility]02-24-2023 Cardiology Progress note Date of Service 08/12/22 [...] ROLAND FOUNTAIN MD on 08/12/2022 02:23 PM [facility] CenterRvkzlbhg70-52-9119 Nephrology Progress note Date of Service 08/12/2022 [...] PM Digitally Signed by MARY DODD MD [facility] CenterOxhvzytw55-11-3253 Note ORIGINAL HISTORY: Ascites COMPARISON: No FINDINGS: No ascites is seen. IMPRESSION: Negative. Interpreted by: Shamika Gonsales MD Preliminary Report By: Shamika Gonsales MD Electronically signed By Shamika Gonsales MD Dictated Date: 08/12/2022 1:59:23 PM Prelim Date: 08/12/2022 1:59:48 PM Sign Date: 08/12/2022 1:59:48 PM Ordering Provider: [facility]02-24-2023 Note ORIGINAL HISTORY: Ascites COMPARISON: No FINDINGS: No ascites is seen. IMPRESSION: Negative. Interpreted by: Shamika Gonsales MD Preliminary Report By: Shamika Gonsales MD Electronically signed By Shamika Gonsales MD Dictated Date: 08/12/2022 1:59:23 PM Prelim Date: 08/12/2022 1:59:48 PM Sign Date: 08/12/2022 1:59:48 PM Ordering Provider: [facility]02-24-2023 Note IR Procedure Record Summary Primary Physician: REBEKAH GIL PA-C Finalized Date/Time: 08/12/22 10:13:36 Pt. Name: SHEREE MUNIZ/Sex: 1955 Male Med Rec #: [id number] Physician: WILY BENITEZ MD Financial #: [id number] Pt. Type: I Room/Bed: [facility]1/A Admit/Disch: 08/06/22 09:19:52 - Institution: Allergies identified in patient's electronic medical record at time of printing on 08/12/22 Entry 1 Substance NKA Reaction Type Allergy Last Modified By: Kathryn Schaefer RN 05/24/16 14:12:02 Case Attendance- IR Entry 1 Entry 2 Entry 3 Case Attendee REBEKAH GIL PA-C, Herminia Singleton National Sales Director Role Performed Primary Surgeon Procedure Nurse Circulating [...] Reviewed Medical Record With Last Modified By: DEINSE Castro 08/10/22 15:02:32 Radiology Protocols/Time Out- IR [...] images and TruHerminia L results are properly National Sales Director, Hong Lopez labeled and Tech Liz A appropriately displayed, Alcohol based prep dry Instrument Sterility Team Members Bollon, National Sales Director Liz A Verifying Sterility Procedure IR Temporary [...] Radiology - Action Plan Outcomes Met? Yes Moth Proofer DENISE Castro Completing Procedure Plan Last Modified By: DENISE Castro 08/10/22 15:05:31 Transfer Post Procedure- IR Entry 1 RAD - Transport to Recovery Via [facility] with Monitor Post-op Destination Dialysis Post Procedure Time Out Double Verification Yes Date/Time Verified 08/10/22 15:43:00 of ID band on patient Completed Verfied ID Band on DENISE Castro by Last Modified By: DENISE Castro 08/10/22 15:43:50 Case Comments Lidocaine amount added to Radiology Procedure Details tab-Joshua.Michael CHAPARRO(R)-Serology Teacher 08/12/22 Finalized By: Eliza Rodriguez Document Signatures Signed By: DENISE Castro 08/10/22 15:44 DENISE Castro 08/10/22 15:46 Eliza Rodriguez 08/12/22 10:13 [facility] CenterVrwakpqm83-59-3510 Pulmonary Progress note Date of Service 08/12/22 [...] HILTON OLVERA MD on 08/12/2022 09:31 AM [facility] CenterZokmcxfh25-91-2446 Nephrology Progress note Date of Service 08/11/2022 [...] by SOFI LAW on 08/11/2022 12:40 PM [facility] CenterKntqksnq67-35-3852 Note. MICRO - Microbiology PROCEDURE: Blood Culture [...] Locations *1: This test was performed at: [address], [address] [place], [place] 6578508-11-2022 Note. MICRO - Microbiology PROCEDURE: Blood Culture [...] Locations *1: This test was performed at: [address], [address] [place], [place] 6578508-11-2022 Cardiology Progress note Date of Service 08/11/22 [...] ROLAND FOUNTAIN MD on 08/11/2022 01:45 PM [facility] CenterCsdkqqep29-67-1068 Note ORIGINAL HISTORY: CHF COMPARISON: 06 August [...] Sign Date: 08/11/2022 12:44:18 PM [facility] CenterZsypqsns25-77-5522 Nephrology Progress note Date of Service 08/11/2022 [...] by SOFI LAW on 08/11/2022 12:40 PM [facility] CenterUohfzquk67-87-4666 Note ORIGINAL HISTORY: CHF COMPARISON: 06 August [...] Sign Date: 08/11/2022 12:44:18 PM Ordering Provider: [facility]02-22-2023 Note ORIGINAL PROCEDURE: TEMPORARY DIALYSIS CATHETER WITH ULTRASOUND AND FLUOROSCOPIC GUIDANCE: 08/10/2022 FINANCIAL PROCESSING CLERK: Rebekah Gil PA-C CLINICAL STATEMENT: AK I [...] Date: 08/12/2022 7:05:53 PM Ordering Provider: [facility]xzivij21-98-3674 Note IR Brief Post Procedure Note Preprocedure Dx: BRYANNA Postprocedure Dx: same Procedure: Temporary dialysis catheter placement Anesthesia: Local EBL: Minimal Complications: None Status: Unchanged Findings 1. Temporary dialysis catheter placed in Right IJ Plan 1. May use now Digitally Signed by REBEKAH GIL PA-C on 08/10/2022 03:50 PM [facility] CenterCzlymiph67-43-7201 Cardiology Progress note Date of Service 08/10/2022 Subjective Patient seen and examined at bedside. Complaining of worsening shortness of breath. Urine output [id number] mL in the last 24 hours. He [...] ROLAND FOUNTAIN MD on 08/10/2022 03:07 PM [facility] CenterAbretkwr44-22-3706 Nephrology Progress note Date of Service 08/10/2022 [...] JEREMIE GRIMM MD on 08/10/2022 10:28 AM [facility] CenterAcqlavkn15-42-6011 Pulmonary Progress note Date of Service 08/10/22 [...] HILTON OLVERA MD on 08/10/2022 02:49 PM [facility] CenterEpqulqaq75-02-5051 Nephrology Progress note Date of Service 08/09/2022 [...] hypertension Continue with current management. Discussed with unemployment insurance hearing officer Dr. Sifuentes earlier. We agreed to give [...] JEREMIE GRIMM MD on 08/09/2022 02:25 PM [facility] CenterJeugfwde02-02-4550 Cardiology Progress note Date of Service 08/09/2022 [...] ROLAND FOUNTAIN MD on 08/09/2022 01:00 PM [facility] CenterZwcagkdh35-62-1121 Pulmonary Progress note Date of Service 08/09/22 [...] HILTON OLVERA MD on 08/09/2022 09:42 AM [facility] CenterBvqylejv04-93-2606 Cardiology Progress note Chief Complaint ADHF Objective [...] 1 tab(s), Oral, TID, 08/06/22 18:15:[address] [employer] Diet Basic Metabolic Panel Blood [...] inotropes/vasoactive medicine. d/w Dr Verenice العراقي MD Government Property Inspector [employer]ext or Pager [phone] [1] History and Physical; ES العراقي MD 08/06/2022 13:03 EST Digitally Signed by ES العراقي MD on 08/07/2022 01:46 PM [facility] CenterGgovdgis92-22-2537 History and physical note Date of Service [...] inotropes/vasoactive medicine. d/w Dr Verenice العراقي MD Government Property Inspector [employer] or Pager [phone] Problem List/Past Medical History Ongoing BRYANNA (acute [...] of joint of ankle: 06/03/16 Appendectomy Tonsillectomy [place] tooth Medications Home Medications (6) Active amLODIPine [...] ES العراقي MD on 08/06/2022 06:31 PM [facility] CenterOutoufsi97-04-9972 Cardiology Progress note Date of Service 08/16/2022 [...] ROLAND FOUNTAIN MD on 08/08/2022 02:17 PM [facility] CenterGgifufoc02-58-7227 Cardiology Progress note Date of Service 08/16/2022 [...] ROLAND FOUNTAIN MD on 08/08/2022 02:17 PM [facility] CenterTxscspjg76-88-9108 Pulmonary Progress note Date of Service 08/08/2022 [...] ADARSH FOSTER MD on 08/08/2022 02:10 PM [facility] CenterZygbeegv47-18-9167 Nephrology Consult note Date of Service 08/08/2022 Reason for Consultation Acute renal failure on CKD stage III, patient known to me. Referring Physician Dr. Fountain, design quality engineer. History of Present Illness Mr. Muniz is [...] Cardiac catheterization Ankle joint fusion Appendectomy Tonsillectomy [place] tooth removal Medications Inpatient amLODIPine, 5 mg= [...] JEREMIE GRIMM MD on 08/08/2022 12:54 PM [facility] CenterHlquygzc40-30-5108 Pulmonary Consult note Date of Service 08/07/2022 [...] of joint of ankle: 06/03/16 Appendectomy Tonsillectomy [place] tooth Medications Inpatient amLODIPine, 5 mg= 1 [...] ADARSH FOSTER MD on 08/07/2022 12:31 PM [facility] CenterAnhenevd07-97-0795 Cardiology Progress note Chief Complaint ADHF Objective [...] 1 tab(s), Oral, TID, 08/06/22 18:15:[address] [employer] Diet Basic Metabolic Panel Blood [...] inotropes/vasoactive medicine. d/w Dr Verenice العراقي MD Government Property Inspector [employer] or Pager [phone] [1] History and Physical; ES العراقي MD 08/06/2022 13:03 EST Digitally Signed by ES العراقي MD on 08/07/2022 01:46 PM [facility] CenterFqepgnnn16-46-6978 Evaluation + Plan noteExtracted from: Title:History and [...] inotropes/vasoactive medicine. d/w Dr Verenice العراقي MD Government Property Inspector [employer] or Pager [phone] Addendum by MIKE BENITEZ MD on August [...] Radiology* CT Angiography Chest w/ Contrast 12/07/21 [facility] 02-18-2023 History and physical note Date of Service 08/06/2022 Chief Complaint pt presents with complaints of worsening SOB over the last couple days. pt has hx of COPD and wearsO2 at home. History of Present Illness Mr. Muinz is a 67-year-old man with NICM, follows [...] inotropes/vasoactive medicine. d/w Dr Verenice العراقي MD Government Property Inspector [employer]ext or Pager [phone] Problem List/Past Medical History Ongoing BRYANNA (acute [...] of joint of ankle: 06/03/16 Appendectomy Tonsillectomy [place] tooth Medications Home Medications (6) Active amLODIPine [...] ES العراقي MD on 08/06/2022 06:31 PM [facility] CenterRueptjan65-79-6530 Note ORIGINAL EXAMINATION: CTA OF THE CHEST [...] Sign Date: 08/06/2022 12:29:16 PM Ordering Provider: [facility]02-18-2023 Note ORIGINAL EXAMINATION: CTA OF THE [...] Sign Date: 08/06/2022 12:29:16 PM Ordering Provider: [facility]02-18-2023 Note ORIGINAL EXAMINATION: ONE XRAY [...] Sign Date: 08/06/2022 9:54:36 AM Ordering Provider: [facility]02-18-2023 Note ORIGINAL EXAMINATION: ONE XRAY VIEW [...] Date: 08/06/2022 9:54:36 AM Ordering Provider: [facility] course Narrative No data available for this section [facility] Summary Purpose Family History No Family History [...] section and content) DATE CREATED AUTHOR 12/13/2017 [facility] DATE CREATED AUTHOR AUTHOR'S ORGANIZ ATION 05/27/2018 [facility] DATE CREATED AUTHOR AUTHOR'S ORGANIZ ATION 06/09/2021 [facility] DATE CREATED AUTHOR AUTHOR'S ORGANIZ ATION 09/15/2022 [facility] ([place]) DATE CREATED AUTHOR AUTHOR'S ORGANIZ ATION 07/13/2024 [facility] Care Team (unrecognized sect ion and content) Care Team Personnel Name: DAWSON OLSEN MD Member Role: Primary Care Physician Address: Address: [place] [id number] [place] [address] Name: Buck Kunz sinker winder Position: PharmNet: Mold Yarn Supervisor/Tech Member Role: Carpenter Form Name: Maria Burks RN Position: P3 machine pack assembler Member Role: machine pack assembler Name: Caitlin Lion Position: P3 Registration- Sports Management Professor Name: MD MIKAELA FELDER MD Position: ED Physician Member Role: ED Physician Address: Address: [facility] [address] [place] [id number] Care Team Related Persons Name: CRISTY ALETHEA Address: Home [address] Patient Care team informatio n (unrecognized section and content) Care Team Personnel Name: DAWSON OLSEN MD Member Role: Primary Care Physician Address: Address: [place] [id number] [place] [address] Care Team Related Persons Name: ALETHEA MUNIZ Address: Home [address] FOR RECORDS PERTAINING TO PATIENTS WHO [...] BE BASED ON THE PRIMARY CLINICAL RECORDS. [employer] provides no warranty or guarantee of the accuracy or completeness of information in this document.
[2025-03-21 21:40] LABS: Prothrombin Time (Protime)PT. 14.7 SECONDS (11.7-14.9)
[2025-03-21 21:41] LABS: Partial Thromboplast Time 34.5 Seconds (24.1-36.2)
[2025-03-21] MEDS: HEPARIN/D5w 25,000 UNITS 25,000 UNITS/250 ML IV.SOLN. 10 UNITS CONT INF (21:43)
[2025-03-21] MEDS: Albuterol *CONC* 2.5mg/0.5mL VIAL.NEB. 10 MG INHALATION (22:40)
[2025-03-21] MEDS: Insulin Lispro 10 UNIT in Syringe 0 ML 6 UNIT IV (23:02)
[2025-03-21] MEDS: 0.9% Saline Lock 10 ML Syringe IV (23:03)
[2025-03-21 23:05] LABS: Procalcitonin 1.35 ng/mL (<=0.10)
[2025-03-22] VITALS (17 sets, daily range): BP systolic 81–116; BP diastolic 46–79; PULSE 74–84; RESP 17–21; TEMP 36.4–36.9; O2SAT 93–98
[2025-03-22 01:38] LABS: Anion Gap 16 (5-15); BUN 116 mg/dL (4-19); BUN/Creat Ratio 50.7 RATIO (10-20); Calcium,Total 8.6 mg/dL (7.6-11.0); Carbon Dioxide 20.9 mmol/L (21.0-32.0); Chloride 99 mmol/L (98-108); Estimated Creatinine Clearance 44.88 ml/min (50-250); Glucose 104 mg/dL (70-99); Potassium 5.1 mmol/L (3.3-5.1)
[2025-03-22 04:06] LABS: Hematocrit 38.9 % (40-54); Hemoglobin 11.9 g/dL (13.0-16.5); Immature Granulocytes Count 0.020 X10^3/uL (0.0-0.0); Mean Corp Hgb Conc 30.6 g/dL (32-36); Mean Corpuscular Volume 95.1 fL (80-94); Mean Platelet Vol. 10.8 fl (6.2-12.0); NRBC Flagged by Analyzer 0 % (0-5); POSITIVE DIFFERENTIAL YES; Platelet Count 167 K/mm3 (150-450); RBC Distribution Width CV 14.7 % (11.6-14.6); RBC Distribution Width SD 51.7 fl (35.1-43.9); Red Blood Count 4.09 M/mm3 (4.6-6.2); White Blood Count 4.6 K/mm3 (4.4-11.0)
[2025-03-22 04:25] LABS: Partial Thromboplast Time 34.5 Seconds (24.1-36.2)
[2025-03-22] MEDS: 0.9% Normal Saline (250mL Bag) 250 ML 999 ML IV ×2 (04:54→05:55)
[2025-03-22] MEDS: Heparin Nomogram Adjustment 5,000 UNIT/ML VIAL IV ×3 (04:54→21:05)
[2025-03-22] MEDS: 0.9% Saline Lock 10 ML Syringe IV (04:56)
[2025-03-22 05:29] LABS: Cholesterol 102 mg/dL (<=200); Low Density Lipoprotein Calc. 50 mg/dL; Triglycerides 63 mg/dL; Very Low Density Lipoprotein 13 mg/dL (5-40); cholesterol:hdl ratio screen 2.61
--- NOTE | 2025-03-22 05:35 | PCM.HOSP.N ---
Hospitalist Note Patient with low BP, will trial low dose IV bolus cautiously. Procalcitonin elevated, again less suggestive given his renal fx but given concurrent hypotension will initiate abx therapy, obtain urine antigens, sputum cx induced if able. If BP not improving may require ICU transition.
[2025-03-22 05:54] LABS: AST(SGOT) 28 U/L (<=37); Alanine Aminotransfer ALT/SGPT 9 U/L (<=46); Albumin, Serum 3.4 g/dL (3.4-4.8); Alkaline Phosphatase 68 U/L (40-129); Anion Gap 15 (5-15); BUN 115 mg/dL (4-19); BUN/Creat Ratio 43.9 RATIO (10-20); Calcium,Total 8.6 mg/dL (7.6-11.0); Carbon Dioxide 23.6 mmol/L (21.0-32.0); Chloride 98 mmol/L (98-108); Estimated Creatinine Clearance 39.23 ml/min (50-250); Globulin 3.6 g/dL (2.2-4.2); Glucose 113 mg/dL (70-99); Potassium 5.2 mmol/L (3.3-5.1)
--- NOTE | 2025-03-22 05:55 | ECHOCS_ITS ---
Reason For Study Reason For Study: NSTEMI Procedure This was a 2D Doppler, Color Flow transthoracic echocardiogram. The study was technically difficult. Contrast injection was performed. Exam performed portable in patient room. Left Ventricle Moderately dilated left ventricle. The estimated ejection fraction is 35 %. There is evidence of diastolic dysfunction. There is moderate to severe global hypokinesis of the left ventricle. Right Ventricle Normal RV size. Normal systolic function. Atria The left atrium is moderately enlarged. Normal right atrium. Mitral Valve There is mild to moderate mitral annular calcification. There is no mitral valve stenosis. Trivial mitral valve insufficiency. Tricuspid Valve There is no tricuspid stenosis. Trivial tricuspid valve insufficiency. Unable to estimate RV systolic pressure due to insufficient tricuspid regurgitant envelope. Aortic Valve Severe diffuse aortic valve thickening. Moderate aortic stenosis. Trivial aortic valve insufficiency. Pulmonic Valve There is no pulmonic valvular stenosis. No pulmonic valve insufficiency. Great Vessels Normal sized aortic root. Pericardium/Pleural No pericardial effusion. Medication Diluted definity 3ml given slow IV push to enhance endocardial definition. MMode/2D Measurements & Calculations LAV(MOD-sp4): 96.1 ml SV(MOD-sp4): 75.3 ml LVAd ap4: 72.4 cm2 LVLd ap4: 12.1 cm SI(MOD-sp4): 28.5 ml/m2 EDV(MOD-sp4): 354.7 ml EDV(sp4-el): 366.8 ml LVAs ap4: 62.2 cm2 LVLs ap4: 11.3 cm ESV(MOD-sp4): 279.4 ml ESV(sp4-el): 291.1 ml EF(MOD-sp4): 21.2 % EF(sp4-el): 20.6 % SV(sp4-el): 75.7 ml LA A4 area: 26.4 cm2 RA A4 area: 18.7 cm2 Doppler Measurements & Calculations MV E max mino: 110.6 cm/sec Lat Peak E' Mino: 13.2 cm/sec Med Peak E' Mino: 8.1 cm/sec E/E' lat: 8.4 E/E' med: 13.7 Ao V2 max: 292.0 cm/sec TR max mino: 257.7 cm/sec Ao max P.1 mmHg TR max P.6 mmHg Ao V2 mean: 234.7 cm/sec Ao mean P.6 mmHg Ao V2 VTI: 72.5 cm ECHO/Echo Complete W/ Contrast Interpretation Summary The estimated ejection fraction is 35 %. There is moderate to severe global hypokinesis of the left ventricle. The left atrium is moderately enlarged. Trivial mitral valve insufficiency. Moderate aortic stenosis. Trivial aortic valve insufficiency. Ordering Physician: Erin Alvarez Referring Physician: CHRISSY HARPER Performed By: Sheree Mitchell RCS
[2025-03-22] MEDS: 0.9% Normal Saline (500mL Bag) 500 ML 999 ML IV (06:47)
--- NOTE | 2025-03-22 07:41 | PN.HOSP_ITS ---
Reason for Visit Chief Complaint: Dyspnea, worse with exertion. Subjective Subjective atient is a 69-year-old gentleman who presented with a 4-day history of progressive shortness of breath. Chest x-ray demonstrated Patchy opacity within right lower lung with bilateral basilar atelectasis concerning for underlying infectious/inflammatory process. Patient was also found to have elevated proBNP as well as troponin. Admitted to monitored bed for subsequent management Objective Data Objective Data Vital Signs: Vital Signs Temp Pulse Resp BP Pulse Ox O2 Del Method O2 Flow Rate 97.6 F L 74 18 110/70 98 Nasal Cannula 4 03/22/25 03:42 03/22/25 03:42 03/22/25 03:42 03/22/25 07:27 03/22/25 03:42 03/22/25 07:37 03/22/25 07:37 Oxygen Flow Rate (L/min) 4 Oxygen Delivery Method Nasal Cannula Weight: 158.6 kg Body Mass Index (BMI) 50.1 Intake & Output: Intake and Output for Last 24 Hours 03/20/25 03/21/25 03/22/25 23:59 23:59 23:59 Intake Total 250 / 250 572.17 / 572.17 Balance 250 / 250 572.17 / 572.17 Lab / Micro Data 03/22/25 03:58 03/22/25 03:58 Labs: Laboratory Results - last 24 hr 03/21/25 16:24: WBC 6.1, RBC 4.13 L, Hgb 12.2 L, Hct 38.0 L, MCV 92.0, MCH 29.5, MCHC 32.1, RDW Std Deviation 50.3 H, RDW Coeff of Paddy 14.8 H, Plt Count 165, MPV 11.1, Immature Gran % (Auto) 0.500, Neut % (Auto) 83.3 H, Lymph % (Auto) 7.5 L, Villalba % (Auto) 7.5, Eos % (Auto) 1.0, Baso % (Auto) 0.2, Absolute Neuts (auto) 5.1, Absolute Lymphs (auto) 0.46 L, Nucleated RBC % 0, PT 14.7, INR 1.1, APTT 34.5, Sodium 134, Potassium 5.4 H, Chloride 97 L, Carbon Dioxide 24.9, Anion Gap 12, BUN 113 H*, Creatinine 2.21 H, Est GFR (MDRD) Non-Af 31 L, BUN/Creatinine Ratio 51.1 H, Glucose 137 H, Calcium 8.4, Troponin T High Sens 548 H* 03/21/25 16:39: [place] [address] H 03/21/25 18:30: Troponin T Hi Sens 2 Hr 559 H* 03/21/25 20:16: Magnesium 2.6 H, Troponin T Hi Sens 4Hr 567 H*, Procalcitonin 1.35 H 03/21/25 22:36: POC Glucose 111 H 03/22/25 00:18: Sodium 135, Potassium 5.1, Chloride 99, Carbon Dioxide 20.9 L, A nion Gap 16 H, BUN 116 H*, Creatinine 2.29 H, Estim Creat Clear Calc 44.88 L, E st GFR (MDRD) Non-Af 30 L, BUN/Creatinine Ratio 50.7 H, Glucose 104 H, Calcium 8.6 03/22/25 03:58: WBC 4.6, RBC 4.09 L, Hgb 11.9 L, Hct 38.9 L, MCV 95.1 H, MCH 29.1, MCHC 30.6 L, RDW Std Deviation 51.7 H, RDW Coeff of Paddy 14.7 H, Plt Count 167, MPV 10.8, Immature Gran % (Auto) 0.400, Neut % (Auto) 77.2 H, Lymph % (Auto) 12.0 L, Villalba % (Auto) 8.3, Eos % (Auto) 1.7, Baso % (Auto) 0.4, Absolute Neuts (auto) 3.5, Absolute Lymphs (auto) 0.55 L, Nucleated RBC % 0, APTT 34.5, Sodium 136, Potassium 5.2 H, Chloride 98, Carbon Dioxide 23.6, Anion Gap 15, BUN 115 H*, Creatinine 2.62 H, Estim Creat Clear Calc 39.23 L, Est GFR (MDRD) Non-Af 25 L, BUN/Creatinine Ratio 43.9 H, Glucose 113 H, Calcium 8.6, Total Bilirubin 0.48, AST 28, ALT 9, Alkaline Phosphatase 68, Total Protein 7.1, Albumin 3.4, Globulin 3.6, Albumin/Globulin Ratio 0.9, Triglycerides 63, Cholesterol 102, LDL Cholesterol, Calc 50, VLDL Cholesterol 13, HDL Cholesterol 39 L, Cholesterol/HDL Ratio 2.61, TSH 2.420 03/22/25 06:50: POC Glucose 99 Micro: Microbiology 03/21/25 22:30 Mucosa - Nose Respiratory Panel (PCR) - Final Radiography Diagnostic Testing: Radiology Impression Chest X-Ray 03/21/25 17:00 IMPRESSION: Patchy opacity within right lower lung with bilateral basilar atelectasis concerning for underlying infectious/inflammatory process. Attention on follow-up imaging is recommended. Reading Location: [facility] Rhythm Strip Rhythm Strip: Sinus Rhythm Rate: 82 Ectopy: None Physical Exam Narrative GENERAL: Dyspneic at rest HEENT: Atraumatic; normocephalic EYES; Anicteric, Normal Conjunctiva NECK; supple, normal thyroid, RESPIRATORY: Diminished to auscultation CARDIOVASCULAR: Regular S1 S2, GI: soft, normoactive bowel sounds, : No Renal angle tenderness; EXTREMITIES: Bilateral lower extremities wrapped MUSCULOSKELETAL: no muscle wasting NEURO: Awake; no lateralizing signs. SKIN: No Rash PSYCH; Flat affect Assessment & Plan Assessment/Plan (1) NSTEMI, initial episode of care: PLAN: Plan Patient is a 69-year-old gentleman who presented with a 4-day history of progressive shortness of breath. Chest x-ray demonstrated Patchy opacity within right lower lung with bilateral basilar atelectasis concerning for underlying infectious/inflammatory process. Patient was also found to have elevated proBNP as well as troponin. Admitted to monitored bed for subsequent management 1. Acute on chronic congestive heart failure with reduced ejection fraction ?Most recent echocardiogram 05/20/2024 demonstrated severely dilated LV cavity, severe LV concentric hypertrophy, severe generalized hypokinesis LV, LVEF 35%, moderate global RV systolic dysfunction, severely dilated LA, RA mildly enlarged, moderate to severe aortic valve calcification, aortic valve peak gradient 42.9 mmHg. Patient admitted to monitored bed manage with strict input and output, fluid restriction, low-sodium diet, as well as diuretic therapy. Repeat echo ordered 2. Elevated troponin ?? Demand ischemia from patient congestive heart failure. EKG did not show any evidence of ischemia. Echo was ordered to assess for regional wall motion abnormality and consult placed to cardiology on admission 3. Diabetes mellitus type II -patient's oral hypoglycemics held. Placed on long acting insulin, Accu-Cheks a.c. and at bedtime and covered with sliding scale insulin 4. Class III obesity with BMI of 50.2 ? Complicating care weight loss advised 5. Acute kidney injury superimposed on chronic kidney disease stage III Patient kidney function continues to worsen and was found to have significant azotemia on admission renal ultrasound ordered consult placed to nephrology 6. Hypertension ? Blood pressure controlled, home medications except lisinopril continued with dose adjustment as needed 7. History of previous PE/DVT Was treated appropriately currently off anticoagulants 8. Hyperkalemia ? Present on admission. Potassium on admission was 5.4, dropped to 5.1 and up to 5.2 this a.m. Patient lisinopril as well as Aldactone held 9. Obesity hypoventilation syndrome ? Patient is on PAP therapy at night consistent use encouraged 10. Chronic hypoxic and hypercapnic respiratory failure ? Secondary to obesity hypoventilation syndrome patient is on home oxygen 5 to 6 L at rest 11.. Atypical chest x-ray patchy opacity right lower lobe, bilateral basilar atelectasis noted on initial imaging studies ordered CT of the chest without contrast for subsequent eval 12. Anemia ? Secondary to chronic disorder monitoring H&H and transfuse if patient becomes symptomatic or hemoglobin falls below 7 13. Chronic bilateral lower extremity lymphedema ? Patient ordered Alfonso wrap on admission 14. DVT prophylaxis ? Patient is on heparin Time spent in the patient's overall evaluation,decision-making process, review of diagnostic data, adjustment of management, discussion with other providers, nursing nursing and ancillary staff involved in patient's care documentation, 55 Minutes Charges/Coding Visit Charges Inpatient E&M: [id number] [facility] L3
--- NOTE | 2025-03-22 09:27 | CT_ITS ---
PROCEDURE: CHEST WITHOUT CONTRAST 03/22/2025 REASON FOR EXAM: PNEUMONIA TECHNIQUE: Chest CT without contrast. Coronal and Sagittal reconstruction series were provided. One or more dose reduction techniques were used (e.g., Automated exposure control, adjustment of the mA and/or kV according to patient size, use of iterative reconstruction technique RADIATION DOSE SUMMARY: CTDlvol: 20.14 mGy DLP: 705 mGycm COMPARISON: None. FINDINGS: LUNGS: No pulmonary mass. Interlobular septal and peribronchovascular interstitial thickening bilaterally. Diffuse background of ground-glass lung attenuation. Dependent opacities bilaterally, greatest in the lower lobes. Left upper lobe calcified granuloma. PLEURAL SPACES: Small pleural effusions bilaterally. No pneumothorax. HEART: Moderate cardiomegaly. Minimal pericardial fluid. Coronary artery, aortic valve and mitral anulus calcification. MEDIASTINUM/HILUM: No significant lymphadenopathy. AORTA: Aneurysmal dilation of the ascending thoracic aorta, up to 5.3 cm in diameter. PULMONARY VESSELS: Diffusely enlarged pulmonary veins. ESOPHAGUS: Unremarkable. CHEST WALL: The left chest wall is partially imaged. Mild right-sided gynecomastia. BONES: No acute osseous abnormality. Degenerative changes of the spine. UPPER ABDOMEN: The upper abdominal solid organs are unremarkable. CT/Chest without Contrast IMPRESSION: 1. Cardiomegaly with vascular congestion and interstitial edema. Small bilate ral pleural effusions. 2. Bilateral ground-glass lung attenuation, likely changes of pulmonary edema and/or pneumonitis. 3. Dependent atelectasis or infiltrates bilaterally, greatest in the lower lob es. 4. Coronary artery calcification (CAC) is present. 5. Fusiform aneurysm of the ascending thoracic aorta, up to 5.3 cm. Reading Location: [id number]
--- NOTE | 2025-03-22 09:28 | US_ITS ---
PROCEDURE: KIDNEY AND BLADDER 03/22/2025 REASON FOR EXAM: BRYANNA TECHNIQUE: Procedure Code: USKI Modality: US Procedure: KIDNEY AND BLADDER COMPARISON: None. FINDINGS: RIGHT KIDNEY Size: Enlarged measuring 14.9 x 6.4 x 6.1 cm. Echogenicity: Normal. Parenchymal thickness: Normal. Hydronephrosis: None. Calculi: Echogenic foci with twinkle artifact measuring 0.3 and 0.5 cm. Cysts: None. Solid masses: None. LEFT KIDNEY Size: Enlarged measuring 16.5 x 7.6 x 5.3 cm. Echogenicity: Normal. Parenchymal thickness: Normal. Hydronephrosis: None. Calculi: None. Cysts: Hypoechoic 1.5 x 1.4 x 0.8 cm exophytic cyst in the superior pole.. Solid masses: None. BLADDER: Decompressed, limiting its evaluation.. OTHER: None. US/Kidney and Bladder IMPRESSION: 1. Bilaterally enlarged kidneys, may reflect acute renal parenchymal process ( such as acute interstitial nephritis, acute glomerulonephritis, or acute tubular injury) in the setting of BRYANNA. 2. Nonobstructing right renal calculi. 3. Small simple exophytic left renal cyst. 4. No hydronephrosis. Reading Location: [id number]
[2025-03-22] MEDS: Ceftriaxone 2 GM in 0.9% Normal Saline (50mL MB+) 50 ML IV (10:15)
[2025-03-22] MEDS: Insulin Human 75/25 Kwickpen 5 UNIT SC ×2 (10:20→21:15)
[2025-03-22 12:13] LABS: Partial Thromboplast Time 27.7 Seconds (24.1-36.2)
[2025-03-22] MEDS: Azithromycin 500 MG in 0.9% Normal Saline (250mL Bag) 250 ML 250 MG IV (12:40)
--- NOTE | 2025-03-22 14:07 | CASEMGMT ---
Social Work SW met w/pt in regard to pt not having insurance. Pt does confirm does not have insurance, declined any resources at this time. Pt was just finishing w/PT. PT suggested to pt getting some rehab at discharge. Pt states he thinks he will be fine once he is home, not interested in a referral to any type of rehab at this time. SW inquired about home health, pt also declining any kind of C referral at this time. SW explained that SW/CM will continue to follow for any d/c needs. JAYANT Carranza
--- NOTE | 2025-03-22 15:48 | CON.PCM.CA_ITS ---
Assessment & Plan Assessment/Plan (1) Breath shortness: PLAN: Appears to be due to decompensated heart failure. Agree with IV Lasix at this time. Patient also appears to have acute on chronic CKD. Monitor creatinine closely. (2) CHF (congestive heart failure): QUALIFIERS: Heart failure type: combined systolic and diastolic H eart failure chronicity: acute on chronic Qualified Code(s): I50.43 - Acute on chronic combined systolic (congestive) and diastolic (congestive) heart failure PLAN: Patient has history of nonischemic cardiomyopathy. Appears to be in decompensated heart failure at this time. Continue IV Lasix for another day. He was on beta-sherice and ANA inhibitor as an outpatient. There is appears to be on hold secondary to low blood pressure and also possibly from the acute on chronic kidney failure. (3) NSTEMI, initial episode of care: PLAN: Likely type II non-STEMI. Okay to DC heparin. No invasive workup planned at this time. HPI Consult Data Date of Consult: 03/22/25 HPI Narrative Reason for Consultation: Shortness of breath HPI Narrative: SHEREE MUNIZ, is a 69 M with morbid obesity, nonischemic cardiomyopathy with cath done at [facility] in 2020 revealing no significant obstructive CAD, presenting with worsening shortness of breath. Patient has been started on IV Lasix and his shortness of breath has improved since admission. He denies any chest pain. Patient's troponin was also elevated. [ ] [facility] Medical History ANDRADE (obstructive sleep apnea) HLD (hyperlipidemia) HTN (hypertension) Non-ischemic cardiomyopathy Morbid obesity with BMI of 50.0-59.9, adult Moderate aortic valve stenosis Controlled type 2 diabetes mellitus with hyperglycemia Dilated cardiomyopathy Walking difficulty due to ankle and foot Wound healing, delayed Vitamin D deficiency Pulmonary embolism Congestive heart failure Aortic valve disease Lymphedema Venous insufficiency of both lower extremities Sleep apnea Super obesity Hyperlipidemia Home Medications ?Medication ?Instructions ?Recorded ?Last Taken ?Type glipizide 5 mg tablet 5 mg PO DAILY diabetes 07/1803/21/25 History aspirin 81 mg capsule 81 mg PO DAILY preventative 03/06/24 03/21/25 History insulin human U-100 NPH-regulr 5 unit subcut BID diabe cecil 03/06/24 03/21/25 History 70-30 mix 100 unit/mL subcutaneous susp (Humulin 70/30 U-100 Insulin) empagliflozin 10 mg tablet 10 mg PO DAILY 30 days #30 tabs 03/09/24 03/21/25 Rx (Jardiance) bumetanide 2 mg tablet 2 mg PO BID water pill 90 da ys 03/20/24 03/21/25 Rx #180 tabs carvedilol 6.25 mg tablet 6.25 mg PO BID 90 days #180 tabs 03/20/24 03/21/25 Rx lisinopril 5 mg tablet 5 mg PO BID 90 days #180 tab s 03/20/24 03/21/25 Rx spironolactone 25 mg tablet 25 mg PO DAILY 90 days #90 tabs 03/20/24 03/21/25 Rx Allergy/AdvReac Type Severity Reaction Status Date / Time No Known Allergies Allergy Verified 03/21/25 16:12 Family History Mother Cancer Glaucoma Brother Aortic aneurysm Father Myocardial infarction Sister Cancer Sister Cardiomyopathy Brother Pulmonary fibrosis Surgical History History of ankle surgery History of foot surgery History of tonsillectomy Social History household members: none Smoking Status: Never smoker alcohol intake: never substance use type: does not use caffeine: Yes Type: carbonated beverages Number of servings: 1 Physical Exam Const alert and oriented x3 Resp Resp Narrative: Scattered crackles. Extremity Extremity Narrative: 2+ edema with pitting. Charges/Coding Visit Charges Inpatient E&M: 62688 Init Hosp L1 Objective Data Vital Signs: Vital Signs Temp Pulse Resp BP Pulse Ox O2 Del Method O2 Flow Rate 97.6 F L 74 18 97/53 L 93 Nasal Cannula 3 03/22/25 03:42 03/22/25 03:42 03/22/25 03:42 03/22/25 09:04 03/22/25 14:29 03/22/25 14:00 03/22/25 14:29 Oxygen Flow Rate (L/min) 3 Oxygen Delivery Method Nasal Cannula Weight: 349 lb 10.45 oz Body Mass Index (BMI) 50.1 Intake & Output: Intake and Output for Last 24 Hours 03/20/25 03/21/25 03/22/25 23:59 23:59 23:59 Intake Total 250 / 250 1470.97 / 1470.97 Balance 250 / 250 1470.97 / 1470.97 Lab / Micro Data 03/22/25 03:58 03/22/25 03:58 Labs: Laboratory Results - last 24 hr 03/21/25 16:24: WBC 6.1, RBC 4.13 L, Hgb 12.2 L, Hct 38.0 L, MCV 92.0, MCH 29.5, MCHC 32.1, RDW Std Deviation 50.3 H, RDW Coeff of Paddy 14.8 H, Plt Count 165, MPV 11.1, Immature Gran % (Auto) 0.500, Neut % (Auto) 83.3 H, Lymph % (Auto) 7.5 L, [place] % (Auto) 7.5, Eos % (Auto) 1.0, Baso % (Auto) 0.2, Absolute Neuts (auto) 5.1, Absolute Lymphs (auto) 0.46 L, Nucleated RBC % 0, PT 14.7, INR 1.1, APTT 34.5, Sodium 134, Potassium 5.4 H, Chloride 97 L, Carbon Dioxide 24.9, Anion Gap 12, BUN 113 H*, Creatinine 2.21 H, Est GFR (MDRD) Non-Af 31 L, BUN/Creatinine Ratio 51.1 H, Glucose 137 H, Calcium 8.4, Troponin T High Sens 548 H* 03/21/25 16:39: [place] [address] H 03/21/25 18:30: Troponin T Hi Sens 2 Hr 559 H* 03/21/25 20:16: Magnesium 2.6 H, Troponin T Hi Sens 4Hr 567 H*, Procalcitonin 1.35 H 03/21/25 22:36: POC Glucose 111 H 03/22/25 00:18: Sodium 135, Potassium 5.1, Chloride 99, Carbon Dioxide 20.9 L, A nion Gap 16 H, BUN 116 H*, Creatinine 2.29 H, Estim Creat Clear Calc 44.88 L, E st GFR (MDRD) Non-Af 30 L, BUN/Creatinine Ratio 50.7 H, Glucose 104 H, Calcium 8.6 03/22/25 03:58: WBC 4.6, RBC 4.09 L, Hgb 11.9 L, Hct 38.9 L, MCV 95.1 H, MCH 29.1, MCHC 30.6 L, RDW Std Deviation 51.7 H, RDW Coeff of Paddy 14.7 H, Plt Count 167, MPV 10.8, Immature Gran % (Auto) 0.400, Neut % (Auto) 77.2 H, Lymph % (Auto) 12.0 L, [place] % (Auto) 8.3, Eos % (Auto) 1.7, Baso % (Auto) 0.4, Absolute Neuts (auto) 3.5, Absolute Lymphs (auto) 0.55 L, Nucleated RBC % 0, APTT 34.5, Sodium 136, Potassium 5.2 H, Chloride 98, Carbon Dioxide 23.6, Anion Gap 15, BUN 115 H*, Creatinine 2.62 H, Estim Creat Clear Calc 39.23 L, Est GFR (MDRD) Non-Af 25 L, BUN/Creatinine Ratio 43.9 H, Glucose 113 H, Calcium 8.6, Total Bilirubin 0.48, AST 28, ALT 9, Alkaline Phosphatase 68, Total Protein 7.1, Albumin 3.4, Globulin 3.6, Albumin/Globulin Ratio 0.9, Triglycerides 63, Cholesterol 102, LDL Cholesterol, Calc 50, VLDL Cholesterol 13, HDL Cholesterol 39 L, Cholesterol/HDL Ratio 2.61, TSH 2.420 03/22/25 06:50: POC Glucose 99 03/22/25 11:39: POC Glucose 207 H 03/22/25 11:57: APTT 27.7 Micro: Microbiology 03/22/25 11:00 Urine, Clean Catch Legionella Antigen - Final 03/22/25 11:00 Urine, Clean Catch Streptococcus pneumoniae Antigen (M - Final 03/21/25 22:30 Mucosa - Nose Respiratory Panel (PCR) - Final Rhythm Strip Rhythm Strip: Sinus Rhythm Rate: 82 Ectopy: None Cardiology Labs/Tests 03/21/25 16:24: WBC 6.1, RBC 4.13 L, Hgb 12.2 L, Hct 38.0 L, MCV 92.0, MCH 29.5, MCHC 32.1, Plt Count 165, MPV 11.1, Immature Gran % (Auto) 0.500, Neut % (Auto) 83.3 H, Lymph % (Auto) 7.5 L, [place] % (Auto) 7.5, Eos % (Auto) 1.0, Baso % (Auto) 0.2, Absolute Neuts (auto) 5.1, Nucleated RBC % 0, PT 14.7, INR 1.1, APTT 34.5, Sodium 134, Potassium 5.4 H, Chloride 97 L, Carbon Dioxide 24.9, Anion Gap 12, B UN 113 H*, Creatinine 2.21 H, Est GFR (MDRD) Non-Af 31 L, BUN/Creatinine Ratio 51.1 H, Glucose 137 H, Calcium 8.4 03/21/25 20:16: Magnesium 2.6 H 03/22/25 00:18: Sodium 135, Potassium 5.1, Chloride 99, Carbon Dioxide 20.9 L, A nion Gap 16 H, BUN 116 H*, Creatinine 2.29 H, Est GFR (MDRD) Non-Af 30 L, B UN/Creatinine Ratio 50.7 H, Glucose 104 H, Calcium 8.6 03/22/25 03:58: WBC 4.6, RBC 4.09 L, Hgb 11.9 L, Hct 38.9 L, MCV 95.1 H, MCH 29.1, MCHC 30.6 L, Plt Count 167, MPV 10.8, Immature Gran % (Auto) 0.400, Neut % (Auto) 77.2 H, Lymph % (Auto) 12.0 L, [place] % (Auto) 8.3, Eos % (Auto) 1.7, Baso % (Auto) 0.4, Absolute Neuts (auto) 3.5, Nucleated RBC % 0, APTT 34.5, Sodium 136, Potassium 5.2 H, Chloride 98, Carbon Dioxide 23.6, Anion Gap 15, BUN 115 H* , Creatinine 2.62 H, Est GFR (MDRD) Non-Af 25 L, BUN/Creatinine Ratio 43.9 H, G lucose 113 H, Calcium 8.6, Total Bilirubin 0.48, Triglycerides 63, Cholesterol 102, VLDL Cholesterol 13, HDL Cholesterol 39 L, Cholesterol/HDL Ratio 2.61 03/22/25 11:57: APTT 27.7 Rhythm: EKG: ECHO: Stress Test: Cardiac Cath: PCI: CT Surgery: Holter monitor: EPS: PPM: CXR: Chest CT Scan: Radiography Diagnostic Testing: Radiology Impression Chest X-Ray 03/21/25 17:00 IMPRESSION: Patchy opacity within right lower lung with bilateral basilar atelectasis concerning for underlying infectious/inflammatory process. Attention on follow-up imaging is recommended. Reading Location: [id number] Echocardiogram 03/22/25 05:55 Interpretation Summary The estimated ejection fraction is 35 %. There is moderate to severe global hypokinesis of the left ventricle. The left atrium is moderately enlarged. Trivial mitral valve insufficiency. Moderate aortic stenosis. Trivial aortic valve insufficiency. Ordering Physician: Erin Alvarez Referring Physician: CHRISSY HARPER Performed By: Sheree Mitchell RCS Chest CT 03/22/25 09:27 IMPRESSION: 1. Cardiomegaly with vascular congestion and interstitial edema. Small bilateral pleural effusions. 2. Bilateral ground-glass lung attenuation, likely changes of pulmonary edema and/or pneumonitis. 3. Dependent atelectasis or infiltrates bilaterally, greatest in the lower lobes. 4. Coronary artery calcification (CAC) is present. 5. Fusiform aneurysm of the ascending thoracic aorta, up to 5.3 cm. Reading Location: [facility] Renal Ultrasound 03/22/25 09:28 IMPRESSION: 1. Bilaterally enlarged kidneys, may reflect acute renal parenchymal process (such as acute interstitial nephritis, acute glomerulonephritis, or acute tubular injury) in the setting of BRYANNA. 2. Nonobstructing right renal calculi. 3. Small simple exophytic left renal cyst. 4. No hydronephrosis. Reading Location: [facility] CHRISSY Risk Score for UA/STEMI Assesmment (YES = 1) Risk Stratification Applicable: No
--- NOTE | 2025-03-22 16:47 | CON.PCM.RE_ITS ---
Assessment & Plan Assessment/Plan (1) Acute kidney injury: PLAN: Baseline creatinine prior to this admission appears to be around 1.5. Currently creatinine is 2.2, BUN is disproportionately high, likely related to cardiorenal syndrome physiology. Urine analysis shows microscopic hematuria and proteinuria. He has never seen blood in his urine subjectively. Will try to get old records from his cold mill operator in [place] about this. Appears volume overloaded. Weight gain is unclear. Continue IV Lasix for now. HPI Consult Data Date of Consult: 03/22/25 HPI Narrative Reason for Consultation: BRYANNA HPI Narrative: SHEREE MUNIZ, is a 69 M who presents To the hospital with shortness of breath and lower extremity edema. Nephrology on consultation in view of acute renal failure. It appears he has history of CKD stage IIIb, baseline creatinine around 1.5 or so. He says he has seen a cold mill operator based of [place] in the past. Echocardiogram with ejection fraction 35%, LV abnormalities. He says he had lower extremity edema for a long time. He says he checks weight but did not think he gained a lot of weight recently. Lower extremity edema has gotten worse. No obstructive symptoms. Denies starting any new medications recently. [facility] Medical History ANDRADE (obstructive sleep apnea) HLD (hyperlipidemia) HTN (hypertension) Non-ischemic cardiomyopathy Morbid obesity with BMI of 50.0-59.9, adult Moderate aortic valve stenosis Controlled type 2 diabetes mellitus with hyperglycemia Dilated cardiomyopathy Walking difficulty due to ankle and foot Wound healing, delayed Vitamin D deficiency Pulmonary embolism Congestive heart failure Aortic valve disease Lymphedema Venous insufficiency of both lower extremities Sleep apnea Super obesity Hyperlipidemia Home Medications ?Medication ?Instructions ?Recorded ?Last Taken ?Type glipizide 5 mg tablet 5 mg PO DAILY diabetes 07/1803/21/25 History aspirin 81 mg capsule 81 mg PO DAILY preventative 03/06/24 03/21/25 History insulin human U-100 NPH-regulr 5 unit subcut BID diabe cecil 03/06/24 03/21/25 History 70-30 mix 100 unit/mL subcutaneous susp (Humulin 70/30 U-100 Insulin) empagliflozin 10 mg tablet 10 mg PO DAILY 30 days #30 tabs 03/09/24 03/21/25 Rx (Jardiance) bumetanide 2 mg tablet 2 mg PO BID water pill 90 da ys 03/20/24 03/21/25 Rx #180 tabs carvedilol 6.25 mg tablet 6.25 mg PO BID 90 days #180 tabs 03/20/24 03/21/25 Rx lisinopril 5 mg tablet 5 mg PO BID 90 days #180 tab s 03/20/24 03/21/25 Rx spironolactone 25 mg tablet 25 mg PO DAILY 90 days #90 tabs 03/20/24 03/21/25 Rx Allergy/AdvReac Type Severity Reaction Status Date / Time No Known Allergies Allergy Verified 03/21/25 16:12 Family History Mother Cancer Glaucoma Brother Aortic aneurysm Father Myocardial infarction Sister Cancer Sister Cardiomyopathy Brother Pulmonary fibrosis Surgical History History of ankle surgery History of foot surgery History of tonsillectomy Social History household members: none Smoking Status: Never smoker alcohol intake: never substance use type: does not use caffeine: Yes Type: carbonated beverages Number of servings: 1 ROS ROS Narrative negative except above Physical Exam Narrative no pallor no icterus no JVD s1s2 no murmurs lungs clear abdomen soft no organomegaly ++ edema no cyanosis esposito + Lab / Micro Data 03/22/25 03:58 03/22/25 03:58 Labs: Laboratory Results - last 24 hr 03/21/25 16:24: WBC 6.1, RBC 4.13 L, Hgb 12.2 L, Hct 38.0 L, MCV 92.0, MCH 29.5, MCHC 32.1, RDW Std Deviation 50.3 H, RDW Coeff of Paddy 14.8 H, Plt Count 165, MPV 11.1, Immature Gran % (Auto) 0.500, Neut % (Auto) 83.3 H, Lymph % (Auto) 7.5 L, [place] % (Auto) 7.5, Eos % (Auto) 1.0, Baso % (Auto) 0.2, Absolute Neuts (auto) 5.1, Absolute Lymphs (auto) 0.46 L, Nucleated RBC % 0, PT 14.7, INR 1.1, APTT 34.5, Sodium 134, Potassium 5.4 H, Chloride 97 L, Carbon Dioxide 24.9, Anion Gap 12, BUN 113 H*, Creatinine 2.21 H, Est GFR (MDRD) Non-Af 31 L, BUN/Creatinine Ratio 51.1 H, Glucose 137 H, Calcium 8.4, Troponin T High Sens 548 H* 03/21/25 16:39: [place] [address] H 03/21/25 18:30: Troponin T Hi Sens 2 Hr 559 H* 03/21/25 20:16: Magnesium 2.6 H, Troponin T Hi Sens 4Hr 567 H*, Procalcitonin 1.35 H 03/21/25 22:36: POC Glucose 111 H 03/22/25 00:18: Sodium 135, Potassium 5.1, Chloride 99, Carbon Dioxide 20.9 L, A nion Gap 16 H, BUN 116 H*, Creatinine 2.29 H, Estim Creat Clear Calc 44.88 L, E st GFR (MDRD) Non-Af 30 L, BUN/Creatinine Ratio 50.7 H, Glucose 104 H, Calcium 8.6 03/22/25 03:58: WBC 4.6, RBC 4.09 L, Hgb 11.9 L, Hct 38.9 L, MCV 95.1 H, MCH 29.1, MCHC 30.6 L, RDW Std Deviation 51.7 H, RDW Coeff of Paddy 14.7 H, Plt Count 167, MPV 10.8, Immature Gran % (Auto) 0.400, Neut % (Auto) 77.2 H, Lymph % (Auto) 12.0 L, [place] % (Auto) 8.3, Eos % (Auto) 1.7, Baso % (Auto) 0.4, Absolute Neuts (auto) 3.5, Absolute Lymphs (auto) 0.55 L, Nucleated RBC % 0, APTT 34.5, Sodium 136, Potassium 5.2 H, Chloride 98, Carbon Dioxide 23.6, Anion Gap 15, BUN 115 H*, Creatinine 2.62 H, Estim Creat Clear Calc 39.23 L, Est GFR (MDRD) Non-Af 25 L, BUN/Creatinine Ratio 43.9 H, Glucose 113 H, Calcium 8.6, Total Bilirubin 0.48, AST 28, ALT 9, Alkaline Phosphatase 68, Total Protein 7.1, Albumin 3.4, Globulin 3.6, Albumin/Globulin Ratio 0.9, Triglycerides 63, Cholesterol 102, LDL Cholesterol, Calc 50, VLDL Cholesterol 13, HDL Cholesterol 39 L, Cholesterol/HDL Ratio 2.61, TSH 2.420 03/22/25 06:50: POC Glucose 99 03/22/25 11:39: POC Glucose 207 H 03/22/25 11:57: APTT 27.7 Micro: Microbiology 03/22/25 11:00 Urine, Clean Catch Legionella Antigen - Final 03/22/25 11:00 Urine, Clean Catch Streptococcus pneumoniae Antigen (M - Final 03/21/25 22:30 Mucosa - Nose Respiratory Panel (PCR) - Final Rhythm Strip Rhythm Strip: Sinus Rhythm Rate: 82 Ectopy: None Imaging Radiology Impression Chest X-Ray 03/21/25 17:00 IMPRESSION: Patchy opacity within right lower lung with bilateral basilar atelectasis concerning for underlying infectious/inflammatory process. Attention on follow-up imaging is recommended. Reading Location: [facility] Echocardiogram 03/22/25 05:55 Interpretation Summary The estimated ejection fraction is 35 %. There is moderate to severe global hypokinesis of the left ventricle. The left atrium is moderately enlarged. Trivial mitral valve insufficiency. Moderate aortic stenosis. Trivial aortic valve insufficiency. Ordering Physician: Erin Alvarez Referring Physician: CHRISSY HARPER Performed By: Sheree Mitchell RCS Chest CT 03/22/25 09:27 IMPRESSION: 1. Cardiomegaly with vascular congestion and interstitial edema. Small bilateral pleural effusions. 2. Bilateral ground-glass lung attenuation, likely changes of pulmonary edema and/or pneumonitis. 3. Dependent atelectasis or infiltrates bilaterally, greatest in the lower lobes. 4. Coronary artery calcification (CAC) is present. 5. Fusiform aneurysm of the ascending thoracic aorta, up to 5.3 cm. Reading Location: [facility] Renal Ultrasound 03/22/25 09:28 IMPRESSION: 1. Bilaterally enlarged kidneys, may reflect acute renal parenchymal process (such as acute interstitial nephritis, acute glomerulonephritis, or acute tubular injury) in the setting of BRYANNA. 2. Nonobstructing right renal calculi. 3. Small simple exophytic left renal cyst. 4. No hydronephrosis. Reading Location: [facility]
[2025-03-22] MEDS: HEPARIN/D5w 25,000 UNITS 25,000 UNITS/250 ML IV.SOLN. 14 UNITS CONT INF (19:52)
[2025-03-22 20:38] LABS: Partial Thromboplast Time 37.7 Seconds (24.1-36.2)
[2025-03-23] VITALS (7 sets, daily range): BP systolic 88–102; BP diastolic 40–65; PULSE 61–89; RESP 18–19; TEMP 36.1–36.7; O2SAT 95–96; BMI 50.5
[2025-03-23 03:38] LABS: Hematocrit 36.1 % (40-54); Hemoglobin 11.4 g/dL (13.0-16.5); Immature Granulocytes Count 0.020 X10^3/uL (0.0-0.0); Mean Corp Hgb Conc 31.6 g/dL (32-36); Mean Corpuscular Volume 93.5 fL (80-94); Mean Platelet Vol. 11.6 fl (6.2-12.0); NRBC Flagged by Analyzer 0 % (0-5); POSITIVE DIFFERENTIAL YES; Platelet Count 173 K/mm3 (150-450); RBC Distribution Width CV 14.8 % (11.6-14.6); RBC Distribution Width SD 51.0 fl (35.1-43.9); Red Blood Count 3.86 M/mm3 (4.6-6.2); White Blood Count 4.5 K/mm3 (4.4-11.0)
[2025-03-23 03:53] LABS: Partial Thromboplast Time 51.1 Seconds (24.1-36.2)
[2025-03-23 04:24] LABS: Magnesium 3.1 mg/dL (1.5-2.2)
[2025-03-23 04:44] LABS: Anion Gap 15 (5-15); BUN 124 mg/dL (4-19); BUN/Creat Ratio 40.3 RATIO (10-20); Calcium,Total 8.2 mg/dL (7.6-11.0); Carbon Dioxide 18.2 mmol/L (21.0-32.0); Chloride 100 mmol/L (98-108); Estimated Creatinine Clearance 33.37 ml/min (50-250); Glucose 99 mg/dL (70-99); Potassium 5.8 mmol/L (3.3-5.1)
--- NOTE | 2025-03-23 07:56 | PN.HOSP_ITS ---
Reason for Visit Chief Complaint: Dyspnea, worse with exertion. Subjective Subjective Patient seen kidney function worsening potassium up to 5.4 Objective Data Objective Data Vital Signs: Vital Signs Temp Pulse Resp BP Pulse Ox O2 Del Method O2 Flow Rate 97 F L 67 18 89/60 L 95 Nasal Cannula 4 03/23/25 05:30 03/23/25 05:30 03/23/25 05:30 03/23/25 05:30 03/23/25 05:30 03/23/25 07:51 03/23/25 07:51 Oxygen Flow Rate (L/min) 4 Oxygen Delivery Method Nasal Cannula Weight: 160.1 kg Body Mass Index (BMI) 50.5 Intake & Output: Intake and Output for Last 24 Hours 03/21/25 03/22/25 03/23/25 23:59 23:59 23:59 Intake Total 250 / 250 1927.03 / 2147.03 335.2 / 335.2 Balance 250 / 250 1927.03 / 2147.03 335.2 / 335.2 Lab / Micro Data 03/23/25 03:24 03/23/25 05:52 Labs: Laboratory Results - last 24 hr 03/22/25 11:39: POC Glucose 207 H 03/22/25 11:57: APTT 27.7 03/22/25 16:48: POC Glucose 175 H 03/22/25 19:27: APTT 37.7 H 03/22/25 21:11: POC Glucose 175 H 03/23/25 03:24: WBC 4.5, RBC 3.86 L, Hgb 11.4 L, Hct 36.1 L, MCV 93.5, MCH 29.5, MCHC 31.6 L, RDW Std Deviation 51.0 H, RDW Coeff of Paddy 14.8 H, Plt Count 173, MPV 11.6, Immature Gran % (Auto) 0.400, Neut % (Auto) 76.6 H, Lymph % (Auto) 11.5 L, [place] % (Auto) 9.7, Eos % (Auto) 1.6, Baso % (Auto) 0.2, Absolute Neuts (auto) 3.4, Absolute Lymphs (auto) 0.51 L, Nucleated RBC % 0, APTT 51.1 H, Sodium 134, Potassium 5.8 H, Chloride 100, Carbon Dioxide 18.2 L, Anion Gap 15, BUN 124 H*, Creatinine 3.08 H, Estim Creat Clear Calc 33.37 L, Est GFR (MDRD) Non-Af 21 L, BUN/Creatinine Ratio 40.3 H, Glucose 99, Calcium 8.2, Phosphorus 6.7 H, Magnesium 3.1 H Micro: Microbiology 03/22/25 11:00 Urine, Clean Catch Legionella Antigen - Final 03/22/25 11:00 Urine, Clean Catch Streptococcus pneumoniae Antigen (M - Final 03/21/25 22:30 Mucosa - Nose Respiratory Panel (PCR) - Final Radiography Diagnostic Testing: Radiology Impression Echocardiogram 03/22/25 05:55 Interpretation Summary The estimated ejection fraction is 35 %. There is moderate to severe global hypokinesis of the left ventricle. The left atrium is moderately enlarged. Trivial mitral valve insufficiency. Moderate aortic stenosis. Trivial aortic valve insufficiency. Ordering Physician: Erin Alvarez Referring Physician: CHRISSY HARPER Performed By: Sheree Mitchell RCS Chest CT 03/22/25 09:27 IMPRESSION: 1. Cardiomegaly with vascular congestion and interstitial edema. Small bilateral pleural effusions. 2. Bilateral ground-glass lung attenuation, likely changes of pulmonary edema and/or pneumonitis. 3. Dependent atelectasis or infiltrates bilaterally, greatest in the lower lobes. 4. Coronary artery calcification (CAC) is present. 5. Fusiform aneurysm of the ascending thoracic aorta, up to 5.3 cm. Reading Location: [id number] Renal Ultrasound 03/22/25 09:28 IMPRESSION: 1. Bilaterally enlarged kidneys, may reflect acute renal parenchymal process (such as acute interstitial nephritis, acute glomerulonephritis, or acute tubular injury) in the setting of BRYANNA. 2. Nonobstructing right renal calculi. 3. Small simple exophytic left renal cyst. 4. No hydronephrosis. Reading Location: [facility] Rhythm Strip Rhythm Strip: Sinus Rhythm Rate: 82 Ectopy: None Physical Exam Narrative GENERAL: Dyspneic at rest HEENT: Atraumatic; normocephalic EYES; Anicteric, Normal Conjunctiva NECK; supple, normal thyroid, RESPIRATORY: Diminished to auscultation CARDIOVASCULAR: Regular S1 S2, GI: soft, normoactive bowel sounds, : No Renal angle tenderness; EXTREMITIES: Bilateral lower extremities wrapped MUSCULOSKELETAL: no muscle wasting NEURO: Awake; no lateralizing signs. SKIN: No Rash PSYCH; Flat affect Assessment & Plan Assessment/Plan (1) NSTEMI, initial episode of care: PLAN: Plan Patient is a 69-year-old gentleman who presented with a 4-day history of progressive shortness of breath. Chest x-ray demonstrated Patchy opacity within right lower lung with bilateral basilar atelectasis concerning for underlying infectious/inflammatory process. Patient was also found to have elevated proBNP as well as troponin. Admitted to monitored bed for subsequent management 1. Acute on chronic congestive heart failure with reduced ejection fraction ?Most recent echocardiogram 05/20/2024 demonstrated severely dilated LV cavity, severe LV concentric hypertrophy, severe generalized hypokinesis LV, LVEF 35%, moderate global RV systolic dysfunction, severely dilated LA, RA mildly enlarged, moderate to severe aortic valve calcification, aortic valve peak gradient 42.9 mmHg. Patient admitted to monitored bed manage with strict input and output, fluid restriction, low-sodium diet, as well as diuretic therapy. Repeat echo ordered ? 03/23/2025; patient repeat echo did show The estimated ejection fraction is 35 %. There is moderate to severe global hypokinesis of the left ventricle. The left atrium is moderately enlarged. Trivial mitral valve insufficiency. Moderate aortic stenosis. Trivial aortic valve insufficiency.. Did continue with diuretic therapy 2. Elevated troponin ?? Demand ischemia from patient congestive heart failure. EKG did not show any evidence of ischemia. Echo was ordered to assess for regional wall motion abnormality and consult placed to cardiology on admission ? Seen in consultation by cardiology recommended discontinuation of heparin 3. Diabetes mellitus type II -patient's oral hypoglycemics held. Placed on long acting insulin, Accu-Cheks a.c. and at bedtime and covered with sliding scale insulin 4. Class III obesity with BMI of 50.2 ? Complicating care weight loss advised 5. Acute kidney injury superimposed on chronic kidney disease stage III Patient kidney function continues to worsen and was found to have significant azotemia on admission renal ultrasound ordered consult placed to nephrology ? 03/23/2025: patient azotemia continues to worsen. Renal ultrasound obtained the day prior did show Bilaterally enlarged kidneys, may reflect acute renal parenchymal process (such as acute interstitial nephritis, acute glomerulonephritis, or acute tubular injury) in the setting of BRYANNA. Nonobstructing right renal calculi. Small simple exophytic left renal cyst. No hydronephrosis. Patient has been seen in consultation by nephrology note and recommendations reviewed 6. Hypertension ? Blood pressure controlled, home medications except lisinopril continued with dose adjustment as needed 7. History of previous PE/DVT Was treated appropriately currently off anticoagulants 8. Hyperkalemia ? Present on admission. Potassium on admission was 5.4, dropped to 5.1 and up to 5.2 this a.m. Patient lisinopril as well as Aldactone held ? 03/23/2025; patient potassium levels still remain high at 5.4 and order was given for Kayexalate 30 g x 1 would repeat potassium levels ordered in a.m. 9. Obesity hypoventilation syndrome ? Patient is on PAP therapy at night consistent use encouraged 10. Chronic hypoxic and hypercapnic respiratory failure ? Secondary to obesity hypoventilation syndrome patient is on home oxygen 5 to 6 L at rest 11.. Atypical chest x-ray patchy opacity right lower lobe, bilateral basilar atelectasis noted on initial imaging studies ordered CT of the chest without contrast for subsequent eval ? 03/23/2025; CT obtained the day prior did show Cardiomegaly with vascular congestion and interstitial edema. Small bilateral pleural effusions. Bilateral ground-glass lung attenuation, likely changes of pulmonary edema and/or pneumonitis. Dependent atelectasis or infiltrates bilaterally, greatest in the lower lobes. Coronary artery calcification (CAC) is present. Fusiform aneurysm of the ascending thoracic aorta, up to 5.3 cm. Patient remains on Zithromycin as well as ceftriaxone for the pneumonitis 12. Anemia ? Secondary to chronic disorder monitoring H&H and transfuse if patient becomes symptomatic or hemoglobin falls below 7 13. Chronic bilateral lower extremity lymphedema ? Patient ordered Alfonso wrap on admission 14. DVT prophylaxis ? Patient is on heparin Time spent in the patient's overall evaluation,decision-making process, review of diagnostic data, adjustment of management, discussion with other providers, nursing nursing and ancillary staff involved in patient's care documentation, 50 Minutes Charges/Coding Visit Charges Inpatient E&M: 13379 [facility] Hosp L3
[2025-03-23 08:26] LABS: Anion Gap 15 (5-15); BUN 123 mg/dL (4-19); BUN/Creat Ratio 39.2 RATIO (10-20); Calcium,Total 8.3 mg/dL (7.6-11.0); Carbon Dioxide 22.1 mmol/L (21.0-32.0); Chloride 100 mmol/L (98-108); Estimated Creatinine Clearance 32.91 ml/min (50-250); Glucose 107 mg/dL (70-99); Potassium 5.4 mmol/L (3.3-5.1)
[2025-03-23] MEDS: Ceftriaxone 2 GM in 0.9% Normal Saline (50mL MB+) 50 ML IV (08:52)
[2025-03-23] MEDS: Insulin Human 75/25 Kwickpen 5 UNIT SC ×2 (08:53→21:08)
[2025-03-23] MEDS: Azithromycin 500 MG in 0.9% Normal Saline (250mL Bag) 250 ML 250 MG IV (10:18)
[2025-03-23] MEDS: Furosemide 500 MG in Empty Viaflex 50 mL 1 EACH CONT INF (11:30)
--- NOTE | 2025-03-23 14:57 | PN.RENAL_ITS ---
Subjective Subjective about the same today Objective Data Objective Data Vital Signs: Vital Signs Temp Pulse Resp BP Pulse Ox O2 Del Method O2 Flow Rate 97 F L 67 18 89/60 L 95 Nasal Cannula 3 03/23/25 05:30 03/23/25 05:30 03/23/25 05:30 03/23/25 05:30 03/23/25 08:00 03/23/25 07:51 03/23/25 09:24 Oxygen Flow Rate (L/min) 3 Oxygen Delivery Method Nasal Cannula Weight: 160.1 kg Body Mass Index (BMI) 50.5 Intake & Output: Intake and Output for Last 24 Hours 03/21/25 03/22/25 03/23/25 23:59 23:59 23:59 Intake Total 250 / 250 1927.03 / 2147.03 983.72 / 983.72 Output Total 250 / 250 Balance 250 / 250 1927.03 / 2147.03 733.72 / 733.72 Lab / Micro Data 03/23/25 03:24 03/23/25 05:52 Labs: Laboratory Results - last 24 hr 03/22/25 16:48: POC Glucose 175 H 03/22/25 19:27: APTT 37.7 H 03/22/25 21:11: POC Glucose 175 H 03/23/25 03:24: WBC 4.5, RBC 3.86 L, Hgb 11.4 L, Hct 36.1 L, MCV 93.5, MCH 29.5, MCHC 31.6 L, RDW Std Deviation 51.0 H, RDW Coeff of Paddy 14.8 H, Plt Count 173, MPV 11.6, Immature Gran % (Auto) 0.400, Neut % (Auto) 76.6 H, Lymph % (Auto) 11.5 L, [place] % (Auto) 9.7, Eos % (Auto) 1.6, Baso % (Auto) 0.2, Absolute Neuts (auto) 3.4, Absolute Lymphs (auto) 0.51 L, Nucleated RBC % 0, APTT 51.1 H, Sodium 134, Potassium 5.8 H, Chloride 100, Carbon Dioxide 18.2 L, Anion Gap 15, BUN 124 H*, Creatinine 3.08 H, Estim Creat Clear Calc 33.37 L, Est GFR (MDRD) Non-Af 21 L, BUN/Creatinine Ratio 40.3 H, Glucose 99, Calcium 8.2, Phosphorus 6.7 H, Magnesium 3.1 H 03/23/25 05:52: Sodium 137, Potassium 5.4 H, Chloride 100, Carbon Dioxide 22.1, Anion Gap 15, BUN 123 H*, Creatinine 3.14 H, Estim Creat Clear Calc 32.91 L, Est GFR (MDRD) Non-Af 20 L, BUN/Creatinine Ratio 39.2 H, Glucose 107 H, Calcium 8.3 03/23/25 07:42: POC Glucose 104 03/23/25 11:34: POC Glucose 141 H Micro: Microbiology 03/22/25 11:00 Urine, Clean Catch Legionella Antigen - Final 03/22/25 11:00 Urine, Clean Catch Streptococcus pneumoniae Antigen (M - Final 03/21/25 22:30 Mucosa - Nose Respiratory Panel (PCR) - Final Rhythm Strip Rhythm Strip: Sinus Rhythm Rate: 82 Ectopy: None Physical Exam Narrative no pallor no icterus no JVD s1s2 no murmurs lungs clear abdomen soft no organomegaly ++ edema Assessment & Plan Assessment/Plan (1) Acute kidney injury: PLAN: Baseline creatinine prior to this admission appears to be around 1.5. Currently creatinine is 2.2, BUN is disproportionately high, likely related to cardiorenal syndrome physiology. Urine analysis shows microscopic hematuria and proteinuria. He has never seen blood in his urine subjectively. Will try to get old records from his manager infusion in [place] about this. Appears volume overloaded. Weight gain is unclear. Continue IV Lasix for now. 03/23/2025. Moderate response to IV Lasix. BUN is higher, creatinine higher. Breathing is still not so great. Lower extremity edema about the same. We discussed about worsening renal failure in the setting of congestive heart failure. We discussed about the potential for dialysis. It seems he had renal failure in 2022 under similar circumstances. Was on dialysis for about 2 weeks and recovered. He is familiar with the process. Continue IV Lasix for now, if renal function continues to worsen, will consider short-term dialysis. All questions answered.
--- NOTE | 2025-03-23 16:42 | PN.CARD_ITS ---
Subjective Subjective Shortness of breath is improved but still not back to baseline Objective Data Vital Signs: Vital Signs Temp Pulse Resp BP Pulse Ox O2 Del Method O2 Flow Rate 97 F L 67 18 89/60 L 95 Nasal Cannula 3 03/23/25 05:30 03/23/25 05:30 03/23/25 05:30 03/23/25 05:30 03/23/25 08:00 03/23/25 14:00 03/23/25 09:24 Oxygen Flow Rate (L/min) 3 Oxygen Delivery Method Nasal Cannula Weight: 352 lb 15.361 oz Body Mass Index (BMI) 50.5 Intake & Output: Intake and Output for Last 24 Hours 03/21/25 03/22/25 03/23/25 23:59 23:59 23:59 Intake Total 250 / 250 1927.03 / 2147.03 983.72 / 983.72 Output Total 250 / 250 Balance 250 / 250 1927.03 / 2147.03 733.72 / 733.72 Lab / Micro Data 03/23/25 03:24 03/23/25 05:52 Labs: Laboratory Results - last 24 hr 03/22/25 16:48: POC Glucose 175 H 03/22/25 19:27: APTT 37.7 H 03/22/25 21:11: POC Glucose 175 H 03/23/25 03:24: WBC 4.5, RBC 3.86 L, Hgb 11.4 L, Hct 36.1 L, MCV 93.5, MCH 29.5, MCHC 31.6 L, RDW Std Deviation 51.0 H, RDW Coeff of Paddy 14.8 H, Plt Count 173, MPV 11.6, Immature Gran % (Auto) 0.400, Neut % (Auto) 76.6 H, Lymph % (Auto) 11.5 L, [place] % (Auto) 9.7, Eos % (Auto) 1.6, Baso % (Auto) 0.2, Absolute Neuts (auto) 3.4, Absolute Lymphs (auto) 0.51 L, Nucleated RBC % 0, APTT 51.1 H, Sodium 134, Potassium 5.8 H, Chloride 100, Carbon Dioxide 18.2 L, Anion Gap 15, BUN 124 H*, Creatinine 3.08 H, Estim Creat Clear Calc 33.37 L, Est GFR (MDRD) Non-Af 21 L, BUN/Creatinine Ratio 40.3 H, Glucose 99, Calcium 8.2, Phosphorus 6.7 H, Magnesium 3.1 H 03/23/25 05:52: Sodium 137, Potassium 5.4 H, Chloride 100, Carbon Dioxide 22.1, Anion Gap 15, BUN 123 H*, Creatinine 3.14 H, Estim Creat Clear Calc 32.91 L, Est GFR (MDRD) Non-Af 20 L, BUN/Creatinine Ratio 39.2 H, Glucose 107 H, Calcium 8.3 03/23/25 07:42: POC Glucose 104 03/23/25 11:34: POC Glucose 141 H Micro: Microbiology 03/22/25 19:54 Sputum, Expectorated/Coughed Gram Stain - Final Rhythm Strip Rhythm Strip: Sinus Rhythm Rate: 82 Ectopy: None Cardiology Labs/Tests 03/22/25 19:27: APTT 37.7 H 03/23/25 03:24: WBC 4.5, RBC 3.86 L, Hgb 11.4 L, Hct 36.1 L, MCV 93.5, MCH 29.5, MCHC 31.6 L, Plt Count 173, MPV 11.6, Immature Gran % (Auto) 0.400, Neut % (Auto) 76.6 H, Lymph % (Auto) 11.5 L, [place] % (Auto) 9.7, Eos % (Auto) 1.6, Baso % (Auto) 0.2, Absolute Neuts (auto) 3.4, Nucleated RBC % 0, APTT 51.1 H, Sodium 134, Potassium 5.8 H, Chloride 100, Carbon Dioxide 18.2 L, Anion Gap 15, BUN 124 H*, Creatinine 3.08 H, Est GFR (MDRD) Non-Af 21 L, BUN/Creatinine Ratio 40.3 H, Glucose 99, Calcium 8.2, Phosphorus 6.7 H, Magnesium 3.1 H 03/23/25 05:52: Sodium 137, Potassium 5.4 H, Chloride 100, Carbon Dioxide 22.1, Anion Gap 15, BUN 123 H*, Creatinine 3.14 H, Est GFR (MDRD) Non-Af 20 L, B UN/Creatinine Ratio 39.2 H, Glucose 107 H, Calcium 8.3 Rhythm: EKG: ECHO: Stress Test: Cardiac Cath: PCI: CT Surgery: Holter monitor: EPS: PPM: CXR: Chest CT Scan: Physical Exam Const alert and oriented x3 HEENT normocephalic Eyes no scleral icterus Resp Resp Narrative: Bibasal crackles. Assessment & Plan Assessment/Plan (1) Breath shortness: PLAN: Appears to be due to decompensated heart failure. Agree with IV Lasix at this time. Patient also appears to have acute on chronic CKD. Creatinine continues to rise. (2) CHF (congestive heart failure): QUALIFIERS: Heart failure type: combined systolic and diastolic H eart failure chronicity: acute on chronic Qualified Code(s): I50.43 - Acute on chronic combined systolic (congestive) and diastolic (congestive) heart failure PLAN: Patient has history of nonischemic cardiomyopathy. Appears to be in decompensated heart failure at this time. Continue IV Lasix for another day. He was on beta-sherice and ANA inhibitor as an outpatient. This appears to be on hold secondary to low blood pressure and also possibly from the acute on chronic kidney failure. (3) NSTEMI, initial episode of care: PLAN: Likely type II non-STEMI. Okay to DC heparin. No invasive workup planned at this time. Charges/Coding Visit Charges Inpatient E&M: 60161 [facility] Hosp L1
[2025-03-24] VITALS (17 sets, daily range): BP systolic 76–114; BP diastolic 49–87; PULSE 60–137; RESP 18–32; TEMP 36.3–37.1; O2SAT 94–100; BMI 50.8
[2025-03-24 05:55] LABS: Hematocrit 36.5 % (40-54); Hemoglobin 11.2 g/dL (13.0-16.5); Immature Granulocytes Count 0.020 X10^3/uL (0.0-0.0); Mean Corp Hgb Conc 30.7 g/dL (32-36); Mean Corpuscular Volume 93.6 fL (80-94); Mean Platelet Vol. 10.8 fl (6.2-12.0); NRBC Flagged by Analyzer 0 % (0-5); POSITIVE DIFFERENTIAL YES; Platelet Count 171 K/mm3 (150-450); RBC Distribution Width CV 14.8 % (11.6-14.6); RBC Distribution Width SD 50.8 fl (35.1-43.9); Red Blood Count 3.90 M/mm3 (4.6-6.2); White Blood Count 4.3 K/mm3 (4.4-11.0)
[2025-03-24 06:28] LABS: Anion Gap 15 (5-15); BUN 124 mg/dL (4-19); BUN/Creat Ratio 38.5 RATIO (10-20); Calcium,Total 8.2 mg/dL (7.6-11.0); Carbon Dioxide 23.3 mmol/L (21.0-32.0); Chloride 101 mmol/L (98-108); Estimated Creatinine Clearance 32.23 ml/min (50-250); Glucose 106 mg/dL (70-99); Potassium 5.0 mmol/L (3.3-5.1)
[2025-03-24] MEDS: Insulin Human 75/25 Kwickpen 5 UNIT SC ×2 (09:31→21:15)
[2025-03-24] MEDS: Azithromycin 500 MG in 0.9% Normal Saline (250mL Bag) 250 ML 250 MG IV (09:31)
[2025-03-24] MEDS: Heparin Injection (Vial) 5,000 UNIT/ML VIAL 5000 UNIT SC (09:39)
[2025-03-24] MEDS: Ceftriaxone 2 GM in 0.9% Normal Saline (50mL MB+) 50 ML IV (10:59)
[2025-03-24] MEDS: FLU VACCINE HIGH DOSE 25-26(65YR UP) 180 MCG/0.5 ML SYRINGE IM (10:59)
--- NOTE | 2025-03-24 10:59 | CASEMGMT ---
Social Work SW spoke with the patient. Patient reported he does not want to DC to a SNF and he not does he wants HH. Patient reported wants to DC home. Patient reported his lives with his and adult son. He reported he also support though his sikhism. MARYLU Yost
--- NOTE | 2025-03-24 12:55 | PCM.PN.REN ---
Subjective Subjective Patient sitting in recliner chair. States feeling about the same as he did yesterday. States breathing is about the same. Complains of swelling in his legs. Objective Data Objective Data Vital Signs: Vital Signs Temp Pulse Resp BP Pulse Ox O2 Del Method O2 Flow Rate 97.3 F L 60 18 108/60 100 Nasal Cannula 4 03/24/25 09:25 03/24/25 09:25 03/24/25 09:25 03/24/25 09:25 03/24/25 09:25 03/24/25 10:00 03/24/25 07:33 Oxygen Flow Rate (L/min) 4 Oxygen Delivery Method Nasal Cannula Weight: 161.2 kg Body Mass Index (BMI) 50.8 Intake & Output: Intake and Output for Last 24 Hours 03/22/25 03/23/25 03/24/25 23:59 23:59 23:59 Intake Total 1927.03 / 2147.03 1223.72 / 1223.72 300 / 300 Output Total 600 / 600 200 / 200 Balance 1927.03 / 2147.03 623.72 / 623.72 100 / 100 Lab / Micro Data 03/24/25 05:24 03/24/25 05:24 Labs: Laboratory Results - last 24 hr 03/23/25 16:32: POC Glucose 183 H 03/23/25 20:57: POC Glucose 151 H 03/24/25 05:24: WBC 4.3 L, RBC 3.90 L, Hgb 11.2 L, Hct 36.5 L, MCV 93.6, MCH 28.7, MCHC 30.7 L, RDW Std Deviation 50.8 H, RDW Coeff of Paddy 14.8 H, Plt Count 171, MPV 10.8, Immature Gran % (Auto) 0.500, Neut % (Auto) 78.3 H, Lymph % (Auto) 8.3 L, [place] % (Auto) 10.6 H, Eos % (Auto) 2.1, Baso % (Auto) 0.2, Absolute Neuts (auto) 3.4, Absolute Lymphs (auto) 0.36 L, Nucleated RBC % 0, Sodium 139, Potassium 5.0, Chloride 101, Carbon Dioxide 23.3, Anion Gap 15, BUN 124 H*, Creatinine 3.22 H, Estim Creat Clear Calc 32.23 L, Est GFR (MDRD) Non-Af 20 L, BUN/Creatinine Ratio 38.5 H, Glucose 106 H, Calcium 8.2 03/24/25 09:04: POC Glucose 172 H 03/24/25 12:10: POC Glucose 206 H Micro: Microbiology 03/22/25 19:54 Sputum, Expectorated/Coughed Gram Stain - Final 03/22/25 19:54 Sputum, Expectorated/Coughed Respiratory Culture - Preliminary Staphylococcus species 03/22/25 11:00 Urine, Clean Catch Legionella Antigen - Final 03/22/25 11:00 Urine, Clean Catch Streptococcus pneumoniae Antigen (M - Final 03/21/25 22:30 Mucosa - Nose Respiratory Panel (PCR) - Final Rhythm Strip Rhythm Strip: Sinus Rhythm Rate: 82 Ectopy: None Physical Exam Narrative Alert and orient x 3, no apparent distress no pallor no icterus no JVD s1s2 no murmurs Diminished breath sounds posteriorly. On O2 nasal cannula abdomen soft +++ edema Assessment & Plan Assessment/Plan (1) Acute kidney injury: PLAN: Baseline creatinine prior to this admission appears to be around 1.5. Currently creatinine is 2.2, BUN is disproportionately high, likely related to cardiorenal syndrome physiology. Urine analysis shows microscopic hematuria and proteinuria. He has never seen blood in his urine subjectively. Will try to get old records from his medical officer in [place] about this. Appears volume overloaded. Weight gain is unclear. Continue IV Lasix for now. 03/23/2025. Moderate response to IV Lasix. BUN is higher, creatinine higher. Breathing is still not so great. Lower extremity edema about the same. We discussed about worsening renal failure in the setting of congestive heart failure. We discussed about the potential for dialysis. It seems he had renal failure in 2022 under similar circumstances. Was on dialysis for about 2 weeks and recovered. He is familiar with the process. Continue IV Lasix for now, if renal function continues to worsen, will consider short-term dialysis. All questions answered. 03/24/2025; hypervolemic BRYANNA superimposed on CKD stage III. Patient remains on Lasix drip. Urine output documented around 600 mL yesterday. Remains on O2 3 to 4 L nasal cannula. Weight up ~1kg today, up to 161 kg. Creatinine is worsening, 3.22 today. BUN worsening up to 124 today. Reviewed with patient that he is likely heading towards needing renal placement therapy. Patient had been on hemodialysis at [facility] and also outpatient kidney center in [place] about 2 years ago therefore familiar with hemodialysis. Patient states wants to talk with his but if dialysis is necessary/recommended he will be in agreement. There is no urgent need for hemodialysis today, potassium and bicarb acceptable. Reviewed nephrology plan with patient today, questions answered. Will review nephrology plan with Dr. Maya. Labs ordered for morning. Recommend strict urine output measurement. Assessment and plan reviewed with Dr. Gauthier.
--- NOTE | 2025-03-24 13:16 | CASEMGMT ---
Addendum entered by Elizabeth Solis 03/24/25 13:28: Social Work SW spoke w/pt again in regard to transportation to and from dialysis. Pt states his family( or son) can take him back and forth. Pt was able to get in and out of the car prior to this hospital stay. Pt states he has a van with a lift, to put his electric wheelchair into the back. The lift does not lift him with the chair, it lifts just the chair. SW also educated pt to the possibility of using [facility] for transportation also, however this would also be self pay. SW did clarify w/pt that he wants to use [facility] and not [facility]. Pt would be interested in home dialysis should pt need it detention. SW remains available, CM will be following for dialysis. JAYANT Carranza Original Note: Social Work SW spoke w/pt in room in regard to dialysis and insurance. Pt states does not want to apply for insurance, is aware dialysis is expensive. Pt was on dialysis two years ago and paid for it out of pocket. Pt was at the [facility] in [place] two years ago, at this time he wants to go to a clinic in [place], agreeable for [facility]. SW explained will let the CM know and SW/CM will continue to follow. JAYANT Carranza
--- NOTE | 2025-03-24 15:58 | CASEMGMT ---
DENISE CALLOWAY updated by Nephrology that patient will need outpatient HD at discharge. Per SW patient prefers [facility]. DENISE CALLOWAY made referral via [facility] Referral Portal for [facility]. CM will continue to follow this patient and plan for a safe discharge.
--- NOTE | 2025-03-24 16:36 | EKG12_ITS ---
Test Reason : Blood Pressure : */* mmHG Vent. Rate : 124 BPM Atrial Rate : * BPM P-R Int : * ms QRS Dur : 166 ms QT Int : 328 ms P-R-T Axes : * -31 134 degrees QTcB Int : 471 ms Atrial fibrillation with rapid ventricular response Left axis deviation Left bundle branch block Abnormal ECG When compared with ECG of 21-Mar-2025 22:25, Atrial fibrillation has replaced Sinus rhythm Vent. rate has increased by 44 bpm Confirmed by RINA CHILEL, NERI ([id number]), editor & co founder ISSA RECINOS ([id number]) on 03/25/2025 1:48:14 PM Referred By: Confirmed By: NERI FLYNN MD
--- NOTE | 2025-03-24 17:20 | PCM.PN.HOSP ---
Reason for Visit Chief Complaint: Dyspnea, worse with exertion. Subjective Subjective No significant issues overnight. Patient did develop new onset atrial fibrillation today for which we gave him Amio bolus and started a drip. Also started heparin drip. Did discuss with the patient his need of dialysis given poor urine output despite Lasix drip. Plan is for dialysis catheter placement and initiation of dialysis hopefully tomorrow. Objective Data Objective Data Vital Signs: Vital Signs Temp Pulse Resp BP Pulse Ox O2 Del Method O2 Flow Rate 97.6 F L 85 18 114/65 97 Nasal Cannula 4 03/24/25 15:30 03/24/25 15:30 03/24/25 15:30 03/24/25 15:30 03/24/25 15:30 03/24/25 15:30 03/24/25 15:13 Oxygen Flow Rate (L/min) 4 Oxygen Delivery Method Nasal Cannula Weight: 161.2 kg Body Mass Index (BMI) 50.8 Intake & Output: Intake and Output for Last 24 Hours 03/22/25 03/23/25 03/24/25 23:59 23:59 23:59 Intake Total 1927.03 / 2147.03 1223.72 / 1223.72 420 / 420 Output Total 600 / 600 500 / 500 Balance 1927.03 / 2147.03 623.72 / 623.72 -80 / -80 Lab / Micro Data 03/24/25 19:17 03/24/25 05:24 Labs: Laboratory Results - last 24 hr 03/23/25 20:57: POC Glucose 151 H 03/24/25 05:24: WBC 4.3 L, RBC 3.90 L, Hgb 11.2 L, Hct 36.5 L, MCV 93.6, MCH 28.7, MCHC 30.7 L, RDW Std Deviation 50.8 H, RDW Coeff of Paddy 14.8 H, Plt Count 171, MPV 10.8, Immature Gran % (Auto) 0.500, Neut % (Auto) 78.3 H, Lymph % (Auto) 8.3 L, Summers % (Auto) 10.6 H, Eos % (Auto) 2.1, Baso % (Auto) 0.2, Absolute Neuts (auto) 3.4, Absolute Lymphs (auto) 0.36 L, Nucleated RBC % 0, Sodium 139, Potassium 5.0, Chloride 101, Carbon Dioxide 23.3, Anion Gap 15, BUN 124 H*, Creatinine 3.22 H, Estim Creat Clear Calc 32.23 L, Est GFR (MDRD) Non-Af 20 L, BUN/Creatinine Ratio 38.5 H, Glucose 106 H, Calcium 8.2 03/24/25 09:04: POC Glucose 172 H 03/24/25 12:10: POC Glucose 206 H Micro: Microbiology 03/22/25 19:54 Sputum, Expectorated/Coughed Gram Stain - Final 03/22/25 19:54 Sputum, Expectorated/Coughed Respiratory Culture - Preliminary Staphylococcus species 03/22/25 11:00 Urine, Clean Catch Legionella Antigen - Final 03/22/25 11:00 Urine, Clean Catch Streptococcus pneumoniae Antigen (M - Final 03/21/25 22:30 Mucosa - Nose Respiratory Panel (PCR) - Final Rhythm Strip Rhythm Strip: Sinus Rhythm Rate: 82 Ectopy: None Physical Exam Const alert, oriented x3, no apparent distress and well nourished; Negative for average body habitus or healthy appearing Constitutional Narrative: Morbidly obese elderly, white male, unhealthy appearing, sitting up in a chair eating dinner and watching television, currently appears comfortable, nontoxic HEENT head/scalp atraumatic HEENT Narrative: Mallampati 4, no thrush, dentition is poor Head and Scalp: normocephalic Eyes EOMs intact bilaterally and conjunctivae normal Eyes Narrative: No scleral icterus Neck supple Neck Narrative: Trachea midline, neck is thick Resp normal respiratory effort, no retractions, no use of accessory muscles and No clear to auscultation bilaterally Resp Narrative: No signs of respiratory distress on supplemental oxygen at 3 L very distant due to body habitus however crackles noted at bases bilaterally Auscultation: crackles; Negative for rhonchi or wheezes Cardio S1 normal heart sound, S2 normal heart sound, no murmurs, no rub, no gallops and no clicks; Negative for regular rate or regular rhythm Cardio Narrative: Tachycardia with irregularly irregular rhythm GI normal to inspection, nondistended, normoactive bowel sounds, soft to palpation and non-tender GI Narrative: Large protuberant abdomen Extremity Extremity Narrative: Severe bilateral lower extremity edema 3-4+ bilaterally, no cyanosis or clubbing, bilateral lower extremity with skin changes consistent with chronic venous stasis Skin Skin Narrative: Bilateral lower extremity skin changes consistent with venous stasis, scattered ecchymosis Neuro moves all extremities and no focal motor deficits Neuro Narrative: Marked generalized weakness Speech: speech normal Psych Psych Narrative: Affect is slightly flat but patient interacts appropriately and makes good eye contact Assessment & Plan Assessment/Plan (1) Elevated troponin: (2) Atrial fibrillation: (3) Acute kidney injury: (4) Hyperkalemia: PLAN: Plan Dyspnea secondary to acute on chronic HFrEF - Echocardiogram this admission shows an EF of 35% with moderate to severe global hypokinesis of the LV, moderately enlarged LA, trivial mitral valve insufficiency, moderate aortic stenosis and unable to estimate RV pressure - Patient has been on Lasix drip without significant urinary output and worsening renal function - Discontinue Lasix drip - Plan for dialysis catheter and initiation of dialysis for fluid removal - Baseline O2 demand is 5 to 6 L--> remained stable at this time - Continue nocturnal and as needed BiPAP - Will need appropriate goal-directed therapy if can tolerate - Cardiology following appreciate input - Consult palliative care Troponin elevation - Low suspicion of NSTEMI - Likely related to acute decompensated heart failure in addition to poor renal function - No further ischemic workup for now - Cardiology is following-appreciate input New onset A-fib with RVR - Patient had normal TSH on admission - Echocardiogram as noted above - Start amiodarone bolus with drip - Heparin drip with transition to Eliquis after procedures completed - Cardiology following-appreciate input Acute on chronic hypotension - Likely related to EF with acute component from amiodarone bolus - Hold Lasix drip - Start midodrine as this may be problematic as dialysis is initiated - Consult palliative care BRYANNA on CKD stage IIIb - Creatinine at baseline appears to be about 1.5 - Suspect cardiorenal physiology - Patient with significant anasarca and worsening creatinine despite diuresis - Discontinue Lasix drip - we have confirmed with the patient that he does want to proceed with dialysis - Plan for tunneled dialysis catheter tomorrow with initiation of dialysis - Starting midodrine given hypotension related to EF issues - Consult palliative care Hyperkalemia - Resolved - Monitor closely Thoracic aortic aneurysm - up to 5.3 cm - Blood pressure control - Outpatient follow-up - Patient is overall poor surgical candidate DM-2 - Oral agents on hold - Continue subcu insulin as ordered but monitor closely with worsening renal function Hypertension - Hold all home agents given hypotensive at this time History of VTE - Nothing currently patient has been off anticoagulants Mild chronic anemia - Stable DVT prophylaxis - Heparin drip reinitiated for atrial fibrillation - Discontinue subcu heparin CODE STATUS - DNR CCA okay for intubation - Consult palliative care because overall prognosis is poor Charges/Coding Visit Charges Inpatient E&M: 13491 Subs Hosp L3
--- NOTE | 2025-03-24 17:53 | PN.CARD_ITS ---
Subjective Subjective Patient seen and evaluated. Doing well. Sitting in chair. No complaints. Legs are still wrapped. Objective Data Vital Signs: Vital Signs Temp Pulse Resp BP Pulse Ox O2 Del Method O2 Flow Rate 97.6 F L 85 18 114/65 97 Nasal Cannula 4 03/24/25 15:30 03/24/25 15:30 03/24/25 15:30 03/24/25 15:30 03/24/25 15:30 03/24/25 15:30 03/24/25 15:13 Oxygen Flow Rate (L/min) 4 Oxygen Delivery Method Nasal Cannula Weight: 355 lb 6.162 oz Body Mass Index (BMI) 50.8 Intake & Output: Intake and Output for Last 24 Hours 03/22/25 03/23/25 03/24/25 23:59 23:59 23:59 Intake Total 1927.03 / 2147.03 1223.72 / 1223.72 420 / 420 Output Total 600 / 600 500 / 500 Balance 1927.03 / 2147.03 623.72 / 623.72 -80 / -80 Lab / Micro Data 03/24/25 05:24 03/24/25 05:24 Labs: Laboratory Results - last 24 hr 03/23/25 20:57: POC Glucose 151 H 03/24/25 05:24: WBC 4.3 L, RBC 3.90 L, Hgb 11.2 L, Hct 36.5 L, MCV 93.6, MCH 28.7, MCHC 30.7 L, RDW Std Deviation 50.8 H, RDW Coeff of Paddy 14.8 H, Plt Count 171, MPV 10.8, Immature Gran % (Auto) 0.500, Neut % (Auto) 78.3 H, Lymph % (Auto) 8.3 L, [place] % (Auto) 10.6 H, Eos % (Auto) 2.1, Baso % (Auto) 0.2, Absolute Neuts (auto) 3.4, Absolute Lymphs (auto) 0.36 L, Nucleated RBC % 0, Sodium 139, Potassium 5.0, Chloride 101, Carbon Dioxide 23.3, Anion Gap 15, BUN 124 H*, Creatinine 3.22 H, Estim Creat Clear Calc 32.23 L, Est GFR (MDRD) Non-Af 20 L, BUN/Creatinine Ratio 38.5 H, Glucose 106 H, Calcium 8.2 03/24/25 09:04: POC Glucose 172 H 03/24/25 12:10: POC Glucose 206 H 03/24/25 17:27: POC Glucose 125 H Micro: Microbiology 03/22/25 19:54 Sputum, Expectorated/Coughed Gram Stain - Final 03/22/25 19:54 Sputum, Expectorated/Coughed Respiratory Culture - Preliminary Staphylococcus species Rhythm Strip Rhythm Strip: Sinus Rhythm Rate: 82 Ectopy: None Cardiology Labs/Tests 03/24/25 05:24: WBC 4.3 L, RBC 3.90 L, Hgb 11.2 L, Hct 36.5 L, MCV 93.6, MCH 28.7, MCHC 30.7 L, Plt Count 171, MPV 10.8, Immature Gran % (Auto) 0.500, Neut % (Auto) 78.3 H, Lymph % (Auto) 8.3 L, [place] % (Auto) 10.6 H, Eos % (Auto) 2.1, Baso % (Auto) 0.2, Absolute Neuts (auto) 3.4, Nucleated RBC % 0, Sodium 139, Potassium 5.0, Chloride 101, Carbon Dioxide 23.3, Anion Gap 15, BUN 124 H*, C reatinine 3.22 H, Est GFR (MDRD) Non-Af 20 L, BUN/Creatinine Ratio 38.5 H, G lucose 106 H, Calcium 8.2 Rhythm: EKG: ECHO: Stress Test: Cardiac Cath: PCI: CT Surgery: Holter monitor: EPS: PPM: CXR: Chest CT Scan: Physical Exam Const alert, oriented x3 and no apparent distress General Appearance: cooperative HEENT hearing grossly normal bilaterally Head and Scalp: atraumatic Eyes EOMs intact bilaterally Neck General: normal visual inspection Chest inspection of chest normal and palpation of chest normal Resp normal respiratory effort Auscultation: clear to auscultation bilaterally Cardio regular rate, regular rhythm, S1 normal heart sound and S2 normal heart sound Jugular Venous Distention: JVD GI normal to inspection, nondistended, normoactive bowel sounds Extremity normal capillary refill Extremity Narrative: Bilateral pedal edema significant and wrapped. General Extremity: edema bilateral Peripheral Pulses: Yes pulses 2+ throughout and femoral pulses present Skin no rashes or lesions noted Neuro oriented x3 and CN's II-XII intact bilaterally Psych Appearance: grossly normal and appropriate Assessment & Plan Assessment/Plan (1) CHF (congestive heart failure): QUALIFIERS: Heart failure type: combined systolic and diastolic H eart failure chronicity: acute on chronic Qualified Code(s): I50.43 - Acute on chronic combined systolic (congestive) and diastolic (congestive) heart failure PLAN: Patient appears to have decompensated congestive heart failure and is currently on guideline directed medical therapy as allowed by his kidney function. My recommendation at this time were to continue the same without making any major changes. I do not foresee any invasive cardiac workup at this time especially due to his renal function. Will continue to wait for guidance from the sales data analyst. Anticipate he may need dialysis. (2) HTN (hypertension): QUALIFIERS: Hypertension type: primary hypertension Qualified Code(s): I10 - Essential (primary) hypertension PLAN: He does have a history of hypertension. His blood pressure appears to be under good control at this time I would not make any changes. (3) Atrial fibrillation: PLAN: He recently went into atrial fibrillation and is being treated with intravenous amiodarone and heparin. We will observe him for now.
[2025-03-24] MEDS: Amiodarone 150 MG in Dextrose 5%-Water (100mL Bag) 100 ML 600 MG IV BOLUS (18:05)
[2025-03-24] MEDS: Amiodarone 360 MG in Dextrose 5% Viaflo Bag 192.8 ML 33.3 MG CONT INF (18:20)
[2025-03-24] MEDS: Furosemide 500 MG in Empty Viaflex 50 mL 1 EACH CONT INF (18:51)
--- NOTE | 2025-03-24 18:51 | EX.PCM.CON.S ---
Assessment & Plan Assessment/Plan (1) Acute kidney injury: PLAN: Patient is 69-year-old male with history of CKD now BRYANNA who requires initiation of hemodialysis. Patient has a history of such 2 years ago and was able to experience return of renal function spontaneously. He previously dialyzed via a right internal jugular tunneled catheter. I see very little evidence of this on exam. It is my hope that the short duration on therapy will have had limited opportunity to lead to central venous stenosis and that this will be a candidate vessel for reinsertion of a catheter. Patient is right-hand dominant. I discussed, longer-term, patient would require placement of fistula. In the meantime patient is recently diagnosed with atrial fibrillation and hospitalist services started a heparin drip. This will need to be held at least 2 hours in anticipation of the procedure. Patient to be n.p.o. past midnight for right possible left tunneled hemodialysis catheter insertion tomorrow 03/25/2025. Please communicate any clinical updates to surgery as they pertain. Govind Larsen MD General Surgery Endocrine Surgery Pager: [facility] [address] [place] [address], [address] [place] [address] Office: [phone] (2) Atrial fibrillation: PLAN: Heparin gtt held 2 hours prior to surgery HPI Consult Data Date of Consult: 03/24/25 HPI Narrative Reason for Consultation: Hemodialysis catheter insertion HPI Narrative: SHEREE MUNIZ, is a 69 M who presents to [facility] on 03/21/2025 with evidence of cardiorenal syndrome. Despite careful resuscitation and monitoring patient's kidney function has continued to worsen a point nephrology is recommending initiation of hemodialysis. Patient is presently found with BiPAP in place and is a new onset A-fib having just been administered amiodarone. Therefore his answers are somewhat limited, but nursing attempts to fill in some of the detail. Together they share that Mr. Muniz has a history of kidney trouble including a brief time on hemodialysis via a right internal jugular tunneled hemodialysis catheter approximately 2 years ago. States he was urinating well before his admission but feels like his urinary frequency has declined. Patient's past medical history includes valvular heart disease (with most recent echo showing moderate aortic stenosis), type 2 diabetes, chronic kidney disease, anemia, ANDRADE on CPAP, super obesity. Mr. Muniz states his mobility is limited to a rollator after fracturing his ankle that never healed well. [facility] Medical History ANDRADE (obstructive sleep apnea) HLD (hyperlipidemia) HTN (hypertension) Non-ischemic cardiomyopathy Morbid obesity with BMI of 50.0-59.9, adult Moderate aortic valve stenosis Controlled type 2 diabetes mellitus with hyperglycemia Dilated cardiomyopathy Walking difficulty due to ankle and foot Wound healing, delayed Vitamin D deficiency Pulmonary embolism Congestive heart failure Aortic valve disease Lymphedema Venous insufficiency of both lower extremities Sleep apnea Super obesity Hyperlipidemia Home Medications ?Medication ?Instructions ?Recorded ?Last Taken ?Type glipizide 5 mg tablet 5 mg PO DAILY diabetes 07/18/18 03/21/25 History aspirin 81 mg capsule 81 mg PO DAILY preventative 03/06/24 03/21/25 History insulin human U-100 NPH-regulr 5 unit subcut BID diabetes 03/06/24 03/21/25 History 70-30 mix 100 unit/mL subcutaneous susp (Humulin 70/30 U-100 Insulin) empagliflozin 10 mg tablet 10 mg PO DAILY 30 days #30 tabs 03/09/24 03/21/25 Rx (Jardiance) bumetanide 2 mg tablet 2 mg PO BID water pill 90 days 03/20/24 03/21/25 Rx #180 tabs carvedilol 6.25 mg tablet 6.25 mg PO BID 90 days #180 tabs 03/20/24 03/21/25 Rx lisinopril 5 mg tablet 5 mg PO BID 90 days #180 tabs 03/20/24 03/21/25 Rx spironolactone 25 mg tablet 25 mg PO DAILY 90 days #90 tabs 03/20/24 03/21/25 Rx Allergy/AdvReac Type Severity Reaction Status Date / Time No Known Allergies Allergy Verified 03/21/25 16:12 Family History Mother Cancer Glaucoma Brother Aortic aneurysm Father Myocardial infarction Sister Cancer Sister Cardiomyopathy Brother Pulmonary fibrosis Surgical History History of ankle surgery History of foot surgery History of tonsillectomy Social History household members: none Smoking Status: Never smoker alcohol intake: never substance use type: does not use caffeine: Yes Type: carbonated beverages Number of servings: 1 Physical Exam Const alert and oriented x3 Nutritional Appearance: obese Resp normal respiratory effort Skin Skin Narrative: No rashes, eruptions, or other signs of skin infection over right chest wall. Lab / Micro Data 03/24/25 05:24 03/24/25 05:24 Labs: Laboratory Results - last 24 hr 03/23/25 20:57: POC Glucose 151 H 03/24/25 05:24: WBC 4.3 L, RBC 3.90 L, Hgb 11.2 L, Hct 36.5 L, MCV 93.6, MCH 28.7, MCHC 30.7 L, RDW Std Deviation 50.8 H, RDW Coeff of Paddy 14.8 H, Plt Count 171, MPV 10.8, Immature Gran % (Auto) 0.500, Neut % (Auto) 78.3 H, Lymph % (Auto) 8.3 L, [place] % (Auto) 10.6 H, Eos % (Auto) 2.1, Baso % (Auto) 0.2, Absolute Neuts (auto) 3.4, Absolute Lymphs (auto) 0.36 L, Nucleated RBC % 0, Sodium 139, Potassium 5.0, Chloride 101, Carbon Dioxide 23.3, Anion Gap 15, BUN 124 H*, Creatinine 3.22 H, Estim Creat Clear Calc 32.23 L, Est GFR (MDRD) Non-Af 20 L, BUN/Creatinine Ratio 38.5 H, Glucose 106 H, Calcium 8.2 03/24/25 09:04: POC Glucose 172 H 03/24/25 12:10: POC Glucose 206 H 03/24/25 17:27: POC Glucose 125 H Micro: Microbiology 03/22/25 19:54 Sputum, Expectorated/Coughed Gram Stain - Final 03/22/25 19:54 Sputum, Expectorated/Coughed Respiratory Culture - Preliminary Staphylococcus species Rhythm Strip Rhythm Strip: Sinus Rhythm Rate: 82 Ectopy: None Charges/Coding Visit Charges Inpatient E&M: 59235 Init Hosp L2
[2025-03-24 19:32] LABS: Hematocrit 39.0 % (40-54); Hemoglobin 11.7 g/dL (13.0-16.5); Immature Granulocytes Count 0.010 X10^3/uL (0.0-0.0); Mean Corp Hgb Conc 30.0 g/dL (32-36); Mean Corpuscular Volume 95.6 fL (80-94); Mean Platelet Vol. 11.0 fl (6.2-12.0); NRBC Flagged by Analyzer 0 % (0-5); POSITIVE DIFFERENTIAL YES; Platelet Count 196 K/mm3 (150-450); RBC Distribution Width CV 14.7 % (11.6-14.6); RBC Distribution Width SD 51.4 fl (35.1-43.9); Red Blood Count 4.08 M/mm3 (4.6-6.2); White Blood Count 4.4 K/mm3 (4.4-11.0)
[2025-03-24 19:44] LABS: Prothrombin Time (Protime)PT. 15.2 SECONDS (11.7-14.9)
[2025-03-24 19:45] LABS: Partial Thromboplast Time 28.4 Seconds (24.1-36.2)
[2025-03-24] MEDS: Heparin Injection (Vial) 5,000 UNIT/ML VIAL 11500 UNIT IV (20:04)
[2025-03-24] MEDS: HEPARIN/D5w 25,000 UNITS 25,000 UNITS/250 ML IV.SOLN. 22 UNITS CONT INF (20:20)
[2025-03-25] VITALS (51 sets, daily range): BP systolic 73–124; BP diastolic 41–97; PULSE 62–139; RESP 2–33; TEMP 35.7–37.2; O2SAT 60–100; BMI 51.5
[2025-03-25] MEDS: Amiodarone 360 MG in Dextrose 5% Viaflo Bag 192.8 ML 16.7 MG CONT INF ×3 (00:30→19:55)
[2025-03-25] MEDS: Albumin Human 25% (100 mL) 25 GM/100 ML BAG IV (01:39)
[2025-03-25 02:27] LABS: Hematocrit 36.4 % (40-54); Hemoglobin 11.2 g/dL (13.0-16.5); Immature Granulocytes Count 0.020 X10^3/uL (0.0-0.0); Mean Corp Hgb Conc 30.8 g/dL (32-36); Mean Corpuscular Volume 94.8 fL (80-94); Mean Platelet Vol. 10.7 fl (6.2-12.0); NRBC Flagged by Analyzer 0 % (0-5); POSITIVE DIFFERENTIAL YES; Platelet Count 186 K/mm3 (150-450); RBC Distribution Width CV 14.7 % (11.6-14.6); RBC Distribution Width SD 51.5 fl (35.1-43.9); Red Blood Count 3.84 M/mm3 (4.6-6.2); White Blood Count 4.0 K/mm3 (4.4-11.0)
[2025-03-25 02:58] LABS: Magnesium 3.0 mg/dL (1.5-2.2); Partial Thromboplast Time 152.6 Seconds (24.1-36.2)
[2025-03-25 03:15] LABS: AST(SGOT) 21 U/L (<=37); Alanine Aminotransfer ALT/SGPT 13 U/L (<=46); Albumin, Serum 3.4 g/dL (3.4-4.8); Alkaline Phosphatase 89 U/L (40-129); Anion Gap 14 (5-15); BUN 128 mg/dL (4-19); BUN/Creat Ratio 32.4 RATIO (10-20); Calcium,Total 8.2 mg/dL (7.6-11.0); Carbon Dioxide 23.6 mmol/L (21.0-32.0); Chloride 101 mmol/L (98-108); Estimated Creatinine Clearance 26.27 ml/min (50-250); Globulin 3.6 g/dL (2.2-4.2); Glucose 133 mg/dL (70-99); Potassium 5.4 mmol/L (3.3-5.1)
--- NOTE | 2025-03-25 07:49 | PCM.PN.HOSP ---
Reason for Visit Chief Complaint: Dyspnea, worse with exertion. Subjective Subjective Patient still in RVR as he was through the evening. Denies any significant symptoms. We did discuss the fact that palliative care saw him and he indicated he would talk to his family more to see what they thought but he did actually kicked palliative care out of his room and they have since signed off. Plan is for dialysis catheter this afternoon. Patient and family questions answered at bedside. Objective Data Objective Data Vital Signs: Vital Signs Temp Pulse Resp BP Pulse Ox O2 Del Method O2 Flow Rate 97.7 F L 109 H 27 H 107/79 91 Bi-pap 4 03/25/25 00:30 03/25/25 07:00 03/25/25 07:00 03/25/25 07:00 03/25/25 07:00 03/25/25 07:00 03/24/25 15:13 Oxygen Flow Rate (L/min) 4 Oxygen Delivery Method Bi-pap Weight: 163.4 kg Body Mass Index (BMI) 51.5 Intake & Output: Intake and Output for Last 24 Hours 03/23/25 03/24/25 03/25/25 23:59 23:59 23:59 Intake Total 1223.72 / 1223.72 811.94 / 845.24 399.80 / 399.80 Output Total 600 / 600 1150 / 1150 Balance 623.72 / 623.72 -338.06 / -304.76 399.80 / 399.80 Lab / Micro Data 03/25/25 02:19 03/25/25 14:30 Labs: Laboratory Results - last 24 hr 03/24/25 09:04: POC Glucose 172 H 03/24/25 12:10: POC Glucose 206 H 03/24/25 17:27: POC Glucose 125 H 03/24/25 19:17: WBC 4.4, RBC 4.08 L, Hgb 11.7 L, Hct 39.0 L, MCV 95.6 H, MCH 28.7, MCHC 30.0 L, RDW Std Deviation 51.4 H, RDW Coeff of Paddy 14.7 H, Plt Count 196, MPV 11.0, Immature Gran % (Auto) 0.200, Neut % (Auto) 82.8 H, Lymph % (Auto) 6.1 L, Ada % (Auto) 7.9, Eos % (Auto) 2.5, Baso % (Auto) 0.5, Absolute Neuts (auto) 3.7, Absolute Lymphs (auto) 0.27 L, Nucleated RBC % 0, PT 15.2 H, INR 1.2, APTT 28.4 03/24/25 21:12: POC Glucose 197 H 03/25/25 02:19: WBC 4.0 L, RBC 3.84 L, Hgb 11.2 L, Hct 36.4 L, MCV 94.8 H, MCH 29.2, MCHC 30.8 L, RDW Std Deviation 51.5 H, RDW Coeff of Paddy 14.7 H, Plt Count 186, MPV 10.7, Immature Gran % (Auto) 0.500, Neut % (Auto) 77.7 H, Lymph % (Auto) 6.8 L, Ada % (Auto) 10.5 H, Eos % (Auto) 4.0, Baso % (Auto) 0.5, Absolute Neuts (auto) 3.1, Absolute Lymphs (auto) 0.27 L, Nucleated RBC % 0, APTT 152.6 H*, Sodium 138, Potassium 5.4 H, Chloride 101, Carbon Dioxide 23.6, Anion Gap 14, BUN 128 H*, Creatinine 3.95 H, Estim Creat Clear Calc 26.27 L, Est GFR (MDRD) Non-Af 15 L, BUN/Creatinine Ratio 32.4 H, Glucose 133 H, Hemoglobin A1c 7.0 H, Calcium 8.2, Phosphorus 6.6 H, Magnesium 3.0 H, Total Bilirubin 0.35, AST 21, ALT 13, Alkaline Phosphatase 89, Total Protein 7.0, Albumin 3.4, Globulin 3.6, Albumin/Globulin Ratio 0.9 Micro: Microbiology 03/22/25 19:54 Sputum, Expectorated/Coughed Gram Stain - Final 03/22/25 19:54 Sputum, Expectorated/Coughed Respiratory Culture - Preliminary Staphylococcus species 03/22/25 11:00 Urine, Clean Catch Legionella Antigen - Final 03/22/25 11:00 Urine, Clean Catch Streptococcus pneumoniae Antigen (M - Final 03/21/25 22:30 Mucosa - Nose Respiratory Panel (PCR) - Final Rhythm Strip Rhythm Strip: Sinus Rhythm Rate: 82 Ectopy: None Physical Exam Const alert, oriented x3, no apparent distress and well nourished; Negative for average body habitus or healthy appearing Constitutional Narrative: Morbidly obese elderly, white male, unhealthy appearing, sitting up in a chair at the bedside, watching television, currently appears comfortable, nontoxic, son at bedside HEENT head/scalp atraumatic and moist oral mucous membranes HEENT Narrative: Dentition is poor, Mallampati is 4 Head and Scalp: normocephalic Resp normal respiratory effort, no retractions, no use of accessory muscles and No clear to auscultation bilaterally Resp Narrative: No signs of respiratory distress on supplemental oxygen at 3 L very distant due to body habitus however crackles noted at bases bilaterally, no signs of respiratory distress Auscultation: crackles; Negative for rhonchi or wheezes Cardio S1 normal heart sound, S2 normal heart sound, no murmurs, no rub, no gallops and no clicks; Negative for regular rate or regular rhythm Cardio Narrative: Tachycardia with irregularly irregular rhythm GI normal to inspection, nondistended, normoactive bowel sounds, soft to palpation and non-tender GI Narrative: Large protuberant abdomen Extremity Extremity Narrative: Severe bilateral lower extremity edema 3-4+ bilaterally, no cyanosis or clubbing, bilateral lower extremity with skin changes consistent with chronic venous stasis Neuro moves all extremities and no focal motor deficits Neuro Narrative: Marked generalized weakness Speech: speech normal Psych Psych Narrative: Affect is slightly flat but patient interacts appropriately and makes good eye contact Assessment & Plan Assessment/Plan (1) Elevated troponin: (2) Atrial fibrillation: (3) Acute kidney injury: (4) Hyperkalemia: PLAN: Plan Dyspnea secondary to acute on chronic HFrEF - Echocardiogram this admission shows an EF of 35% with moderate to severe global hypokinesis of the LV, moderately enlarged LA, trivial mitral valve insufficiency, moderate aortic stenosis and unable to estimate RV pressure - Patient has been on Lasix drip without significant urinary output and worsening renal function - Dialysis catheter and dialysis to be initiated in the next 24 hours - Baseline O2 demand is 5 to 6 L--> remained stable at this time and currently on 3 to 4 L - Continue nocturnal and as needed BiPAP - Will need appropriate goal-directed therapy if can tolerate - Cardiology following appreciate input - Palliative care was consulted and per note patient is not interested in actually kicked her out of the room--they signed off at this time> Troponin elevation - Low suspicion of NSTEMI - Likely related to acute decompensated heart failure in addition to poor renal function - No further ischemic workup for now - Cardiology is following-appreciate input New onset A-fib with RVR - Patient had normal TSH on admission - Echocardiogram as noted above - Continue amiodarone drip for now - Continue heparin drip - Ongoing rate control per cardiology however suspect that once atrial stretch decreases with removal of fluid via dialysis that we should be able to better control his heart rate - Cardiology following-appreciate input Acute on chronic hypotension - Resolved BRYANNA on CKD stage IIIb - Creatinine at baseline appears to be about 1.5 - Suspect cardiorenal physiology - Patient with significant anasarca and worsening creatinine despite diuresis - Tunneled dialysis catheter placement today and dialysis later today versus tomorrow morning - Continue midodrine 10 mg p.o. 3 times daily Hyperkalemia - Up again today at 5.4 - Kayexalate ordered Thoracic aortic aneurysm - up to 5.3 cm - Blood pressure control - Outpatient follow-up - Patient is overall poor surgical candidate DM-2 - Oral agents on hold - Continue subcu insulin as ordered but monitor closely with worsening renal function - Fasting sugar is 133- Hypertension - Hold all home agents given hypotensive at this time History of VTE - Not on anything chronically - Currently on heparin drip for A-fib Mild chronic anemia - Stable DVT prophylaxis - Continue heparin drip CODE STATUS - DNR CCA okay for intubation - Overall prognosis is poor-palliative care did evaluate the patient and he essentially kicked him out of the room Charges/Coding Visit Charges Inpatient E&M: 76986 Subs Hosp L2
--- NOTE | 2025-03-25 08:21 | PCM.CONS.P ---
[facility] Medical History ANDRADE (obstructive sleep apnea) HLD (hyperlipidemia) HTN (hypertension) Non-ischemic cardiomyopathy Morbid obesity with BMI of 50.0-59.9, adult Moderate aortic valve stenosis Controlled type 2 diabetes mellitus with hyperglycemia Dilated cardiomyopathy Walking difficulty due to ankle and foot Wound healing, delayed Vitamin D deficiency Pulmonary embolism Congestive heart failure Aortic valve disease Lymphedema Venous insufficiency of both lower extremities Sleep apnea Super obesity Hyperlipidemia Home Medications ?Medication ?Instructions ?Recorded ?Last Taken ?Type glipizide 5 mg tablet 5 mg PO DAILY diabetes 07/18/18 03/21/25 History aspirin 81 mg capsule 81 mg PO DAILY preventative 03/06/24 03/21/25 History insulin human U-100 NPH-regulr 5 unit subcut BID diabetes 03/06/24 03/21/25 History 70-30 mix 100 unit/mL subcutaneous susp (Humulin 70/30 U-100 Insulin) empagliflozin 10 mg tablet 10 mg PO DAILY 30 days #30 tabs 03/09/24 03/21/25 Rx (Jardiance) bumetanide 2 mg tablet 2 mg PO BID water pill 90 days 03/20/24 03/21/25 Rx #180 tabs carvedilol 6.25 mg tablet 6.25 mg PO BID 90 days #180 tabs 03/20/24 03/21/25 Rx lisinopril 5 mg tablet 5 mg PO BID 90 days #180 tabs 03/20/24 03/21/25 Rx spironolactone 25 mg tablet 25 mg PO DAILY 90 days #90 tabs 03/20/24 03/21/25 Rx Allergy/AdvReac Type Severity Reaction Status Date / Time No Known Allergies Allergy Verified 03/21/25 16:12 Family History Mother Cancer Glaucoma Brother Aortic aneurysm Father Myocardial infarction Sister Cancer Sister Cardiomyopathy Brother Pulmonary fibrosis Surgical History History of ankle surgery History of foot surgery History of tonsillectomy Social History household members: none Smoking Status: Never smoker alcohol intake: never substance use type: does not use caffeine: Yes Type: carbonated beverages Number of servings: 1 ROS Constitutional Constitutional: Reports weight gain and other Details: Patient is morbidly obese with a BMI of 51.7 Eyes Eyes: Reports systems reviewed and no addt'l complaints, except as documented ENT HEENT: Reports systems reviewed and no addt'l complaints, except as documented Cardiovascular Cardiovascular: Reports dyspnea, edema, erythema on extremities, fatigue, irregular heart rhythm, leg edema, leg ulcers, weakness in extremities and weight gain Respiratory/Chest Respiratory/Chest: Reports dyspnea, dyspnea on exertion, mouth breathing, portable oxygen @ home, shortness of breath at rest, shortness of breath with exertion and tachypnea Gastrointestinal Gastrointestinal: Reports systems reviewed and no addt'l complaints, except as documented Genitourinary Genitourinary: Reports oliguria Musculoskeletal Musculoskeletal: Reports systems reviewed and no addt'l complaints, except as documented and as per HPI Integumentary Integumentary: Reports wounds Neurologic Neurologic: Reports as per HPI Psychiatric Psychiatric: Reports as per HPI Endocrine Endocrinology: Reports systems reviewed and no addt'l complaints, except as documented Hematologic/Lymphatic Hematologic/Lymphatic: Reports systems reviewed and no addt'l complaints, except as documented Allergic/Immunologic Allergic/Immunologic: Reports systems reviewed and no addt'l complaints, except as documented Physical Exam Const alert and oriented x3 HEENT normocephalic Resp Resp Narrative: Patient is currently on 5 to 6 L nasal cannula and continues to have hypoxia. Effort and Inspection: tachypneic Auscultation: crackles and diminished lung sounds Cardio regular rate Cardio Narrative: 4+ nonpitting edema to bilateral lower extremities. Lymphedema noted. Alfonso wrap compression to the right lower extremity. GI non-tender Extremity Extremity Narrative: Significant pedal edema to bilateral lower extremities. Left greater than right General Extremity: edema Skin Wounds: wounds noted surrounding erythema and other Bilateral lower extremities related to lymphedema Neuro CN's II-XII intact bilaterally Speech: speech normal Gait (Neuro): unable to assess gait Psych affect normal Charges/Coding Palliative Care Palliative Care: [id number] New Pt Consult 60-79 min HPI Current admission Current Code Status: DNRCC-A with intubation Associated Diagnosis: HFrEF, A-fib, dyspnea bryanna ON ckd Consult Data Date of Consult: 03/25/25 Location of consult: PCU Reason for referral: [facility] Referral source: Dr. Maya Palliative care diagnosis (Summary list): HFrEF, dyspnea, BRYANNA on CKD Palliative care services/treatment (Accepted, as consult): accepted but states he does not need any longer Case discussed with referring provider: that pt refused further palliative care HPI Narrative HPI Narrative: PAIN ASSESSMENT Location: [all over ] Quality: [ aching] Severity/Quantity: [mild ] Timing/Frequency: [ intermittent ] Context: [ ] Factors that make it better/worse: [makes it worse walking ] Associated signs & symptoms: [ ] . Prior to Meeting with the patient at send I reviewed extensive documentation, labs and radiological studies. Introduced myself and the concept of palliative care as well as the reason that Dr. Maya consulted me. He agreed to talk with me today but states that he does not need services from palliative care going forward. He is concerned that he is a self-pay patient and already can receive the services from his primary care provider. I did explain how palliative care could help him on an outpatient basis in which he did decline. We did talk about his significant comorbidities with an EF of 35%. He is morbidly obese with a BMI of 51.7. He does state at home that he uses an electric wheelchair at baseline. He does state that he uses a rollator when going to druze on Sundays and does have a 2 wheeled walker if needed at home as well. 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 He does state that he wants to continue aggressive medical management of his comorbidities. He states that he does have 12 children and has a lot of additional support at home if needed. per documentation, pt did have an eventful morning. He continues to be hypotensive and hypoxic. He is experiencing worsening of his kidney function with a BUN of 112(124 yesterday), creatinine of 3.95 (3.22 yesterday) and GFR of 15 (20 yesterday) He is wanting dialysis if needed. Patient states that he did have dialysis previously. He will need Vas-Cath placement. He is currently on 5 to 6 L nasal cannula. At this point in time, he would like all aggressive medical management. He does state understanding that, if any time, he no longer wants aggressive medical management, that hospice would be an option for him. All questions were answered Palliative care is signing off per pt request. ] per Hospitalist:The patient is a 69 y/o M w/ PMHx: HTN, HLD, Chronic BL LE PVD/Lymphedema, Valvular Heart Disease, Hx VTE ( DVT, PE), Diabetes melltitus type II, CKD stage III unclear subtype per GFR trending, Chronic normocytic anemia, HFrEF/Nonischemic cardiomyopathy, Obesity hypoventilation syndrome/ANDRADE w/ Chronic Hypoxic and Hypercarbic Respiratory Failure (5-6L NC) qHS with CPAP (supposed to be changing to BIPAP but has been having issues obtaining the machine set-up) who presents to [facility] ED [facility] 03/[facility]25 with significant dyspnea, worse with exertion, also worse when he attempts to lay flat with no recent associated cough with increased fatigue and malaise prompting eventual ED evaluation to be cautious. He does not endorse increased weight gain of note. He reports chronic BL LE, L>R (because of prior ankle fx) that is stable. Workup in the ED included T97.6, heart rate 85, BP 112/78, respiratory rate 24, 95% on 5 L nasal cannula with previous records reported usage of 5 to 6 L but reportedly this is only at night, transiently in the ED increasing to 6 L at 99% oxygenation with most recent repeat vitals heart rate 80, BP 93/53, respiratory rate 23, 96% on 4 L nasal cannula, CBC with WC 6.1, hemoglobin 12.2, MCV 92, platelet 165 with lymphopenia, BMP with potassium 5.4, chloride 97, BUN/creatinine 113/2.21, GFR 31, glucose 137, troponin initial 548 with repeat 2-hour delta 559, NT proBNPII 31,537, chest x-ray with patchy opacity within the right lower lung with bilateral bibasilar atelectasis concerning for underlying infectious/inflammatory process, EKG with SR with LBBB with no acute evidence of ischemia. Palliative Assessment Advanced Directive - Current Admission Advance Directive: Advance Directive ON ADMISSION - REFERENCE Do you have a Healthcare Yes 03/21/25 22:13 Living Will? Is a Healthcare Living Will Yes, paper copy provided 03/21/25 22:13 present in the medical record? 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 Do You Want Additional Declined 03/21/25 22:13 Information on Advanced Directives or Healthcare Proxy/DPOA comments: - Cathy (also has 8 boys 4 girls) Psychosocial/Spiritual Information Living situation/Marital status: lives with Geographic location: [place] Supports: family Mandaen/Belle or spiritual preference: Menonite Spiritual distress: none Prior functional status: was able to assist with cooking -bakes pies, canned pickles etx Assistive devices at home: has an electric wheelchair, rollator, 2ww. 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 Symptoms Palliative performance scale: 50% Palliative prognostic index: 7.0 (if the PPI is greater than 6.0, survival is less than 3 weeks.) Dyspnea symptoms: Severe Nausea symptoms: None Vomiting symptoms: None Cough symptoms: Mild Fatigue symptoms: Moderate Weakness symptoms: Severe Confusion symptoms: None Objective Data Objective Data Vital Signs: Vital Signs Temp Pulse Resp BP Pulse Ox O2 Del Method O2 Flow Rate 97.7 F L 109 H 27 H 107/79 91 Bi-pap 4 03/25/25 00:30 03/25/25 07:00 03/25/25 07:00 03/25/25 07:00 03/25/25 07:00 03/25/25 07:00 03/24/25 15:13 Oxygen Flow Rate (L/min) 4 Oxygen Delivery Method Bi-pap Weight: 360 lb 3.765 oz Body Mass Index (BMI) 51.5 Intake & Output: Intake and Output for Last 24 Hours 03/23/25 03/24/25 03/25/25 23:59 23:59 23:59 Intake Total 1223.72 / 1223.72 811.94 / 845.24 399.80 / 399.80 Output Total 600 / 600 1150 / 1150 Balance 623.72 / 623.72 -338.06 / -304.76 399.80 / 399.80 Lab / Micro Data Attestation: I reviewed the patient's lab results. Lab results narrative: Patient is showing worsening of kidney function. 03/25/25 02:19 03/25/25 02:19 Labs: Laboratory Results - last 24 hr 03/24/25 09:04: POC Glucose 172 H 03/24/25 12:10: POC Glucose 206 H 03/24/25 17:27: POC Glucose 125 H 03/24/25 19:17: WBC 4.4, RBC 4.08 L, Hgb 11.7 L, Hct 39.0 L, MCV 95.6 H, MCH 28.7, MCHC 30.0 L, RDW Std Deviation 51.4 H, RDW Coeff of Paddy 14.7 H, Plt Count 196, MPV 11.0, Immature Gran % (Auto) 0.200, Neut % (Auto) 82.8 H, Lymph % (Auto) 6.1 L, Cook % (Auto) 7.9, Eos % (Auto) 2.5, Baso % (Auto) 0.5, Absolute Neuts (auto) 3.7, Absolute Lymphs (auto) 0.27 L, Nucleated RBC % 0, PT 15.2 H, INR 1.2, APTT 28.4 03/24/25 21:12: POC Glucose 197 H 03/25/25 02:19: WBC 4.0 L, RBC 3.84 L, Hgb 11.2 L, Hct 36.4 L, MCV 94.8 H, MCH 29.2, MCHC 30.8 L, RDW Std Deviation 51.5 H, RDW Coeff of Paddy 14.7 H, Plt Count 186, MPV 10.7, Immature Gran % (Auto) 0.500, Neut % (Auto) 77.7 H, Lymph % (Auto) 6.8 L, Cook % (Auto) 10.5 H, Eos % (Auto) 4.0, Baso % (Auto) 0.5, Absolute Neuts (auto) 3.1, Absolute Lymphs (auto) 0.27 L, Nucleated RBC % 0, APTT 152.6 H*, Sodium 138, Potassium 5.4 H, Chloride 101, Carbon Dioxide 23.6, Anion Gap 14, BUN 128 H*, Creatinine 3.95 H, Estim Creat Clear Calc 26.27 L, Est GFR (MDRD) Non-Af 15 L, BUN/Creatinine Ratio 32.4 H, Glucose 133 H, Hemoglobin A1c 7.0 H, Calcium 8.2, Phosphorus 6.6 H, Magnesium 3.0 H, Total Bilirubin 0.35, AST 21, ALT 13, Alkaline Phosphatase 89, Total Protein 7.0, Albumin 3.4, Globulin 3.6, Albumin/Globulin Ratio 0.9 Micro: Microbiology 03/22/25 19:54 Sputum, Expectorated/Coughed Gram Stain - Final 03/22/25 19:54 Sputum, Expectorated/Coughed Respiratory Culture - Preliminary Staphylococcus species 03/22/25 11:00 Urine, Clean Catch Legionella Antigen - Final 03/22/25 11:00 Urine, Clean Catch Streptococcus pneumoniae Antigen (M - Final 03/21/25 22:30 Mucosa - Nose Respiratory Panel (PCR) - Final Rhythm Strip Rhythm Strip: Sinus Rhythm Rate: 82 Ectopy: None and PVC(s) Impressions & Recommendations Patient & Family Issues discussed with the patient and family: No family present. Patient goal: Patient's goal is to return home Family goal: No family at bedside Ethical & Legal Ethical and legal: None noted Impressions Impressions: Patient would benefit from palliative care outpatient services but is currently refusing. Recommentation Palliative recommendations: Patient continues to want aggressive medical management. If he were to discontinue he would be a hospice candidate. He is also refusing outpatient palliative care services. Encouter Achieved as a result of this Palliative Care Encounter: [[id number], [id number], [id number] ] minutes were spent in total for this visit which consisted, primarily of counseling and education dealing with the complex and emotionally intense issues of symptom management and palliative care in the setting of serious and potentially life-threatening illness. Review of documentation, labs and radiological studies. ?Patient/family had the opportunity to ask questions Plan (1) Acute kidney injury: PLAN: Patient is open to aggressive medical management including dialysis if needed (2) CHF (congestive heart failure): QUALIFIERS: Heart failure type: combined systolic and diastolic Heart failure chronicity: acute on chronic Qualified Code(s): I50.43 - Acute on chronic combined systolic (congestive) and diastolic (congestive) heart failure PLAN: Medical management per primary team (3) Hypoxia: PLAN: Patient is on home O2 only at night. Patient may require home O2 evaluation. Medical management per primary team (4) Atrial fibrillation: PLAN: Medical management per primary team (5) Hyperkalemia: PLAN: Medical management per primary team (6) Venous insufficiency of both lower extremities: PLAN: Medical management per primary team (7) Chronic systolic congestive heart failure, NYHA class 2: PLAN: Medical management per primary team (8) Morbid obesity: PLAN: Medical management per primary team (9) Breath shortness: PLAN: Medical management per primary team (10) Palliative care encounter: PLAN: *Patient would be a candidate for outpatient palliative care services if he ever elects to receive them. He currently has multiple comorbidities that would require managements *Patient is currently refusing palliative care (11) Goals of care, counseling/discussion: PLAN: *Patient's goal is to return home *Patient wants to continue aggressive medical management of All co-morbid diseases.
--- NOTE | 2025-03-25 08:31 | PCM.PN.SRG ---
Subjective Subjective Patient evaluated resting comfortably in bed. Overnight, patient was hypotensive and in AFib. He is currently on a continuous cardiac nurse practitioner. Patient denies any concerns or questions in regards to the procedure today. Objective Data Objective Data Vital Signs: Vital Signs Temp Pulse Resp BP Pulse Ox O2 Del Method O2 Flow Rate 97.7 F L 109 H 27 H 107/79 91 Bi-pap 4 03/25/25 00:30 03/25/25 07:00 03/25/25 07:00 03/25/25 07:00 03/25/25 07:00 03/25/25 07:00 03/24/25 15:13 Oxygen Flow Rate (L/min) 4 Oxygen Delivery Method Bi-pap Weight: 360 lb 3.765 oz Body Mass Index (BMI) 51.5 Intake & Output: Intake and Output for Last 24 Hours 03/23/25 03/24/25 03/25/25 23:59 23:59 23:59 Intake Total 1223.72 / 1223.72 811.94 / 845.24 399.80 / 399.80 Output Total 600 / 600 1150 / 1150 Balance 623.72 / 623.72 -338.06 / -304.76 399.80 / 399.80 Lab / Micro Data 03/25/25 02:19 03/25/25 02:19 Labs: Laboratory Results - last 24 hr 03/24/25 09:04: POC Glucose 172 H 03/24/25 12:10: POC Glucose 206 H 03/24/25 17:27: POC Glucose 125 H 03/24/25 19:17: WBC 4.4, RBC 4.08 L, Hgb 11.7 L, Hct 39.0 L, MCV 95.6 H, MCH 28.7, MCHC 30.0 L, RDW Std Deviation 51.4 H, RDW Coeff of Paddy 14.7 H, Plt Count 196, MPV 11.0, Immature Gran % (Auto) 0.200, Neut % (Auto) 82.8 H, Lymph % (Auto) 6.1 L, [place] % (Auto) 7.9, Eos % (Auto) 2.5, Baso % (Auto) 0.5, Absolute Neuts (auto) 3.7, Absolute Lymphs (auto) 0.27 L, Nucleated RBC % 0, PT 15.2 H, INR 1.2, APTT 28.4 03/24/25 21:12: POC Glucose 197 H 03/25/25 02:19: WBC 4.0 L, RBC 3.84 L, Hgb 11.2 L, Hct 36.4 L, MCV 94.8 H, MCH 29.2, MCHC 30.8 L, RDW Std Deviation 51.5 H, RDW Coeff of Paddy 14.7 H, Plt Count 186, MPV 10.7, Immature Gran % (Auto) 0.500, Neut % (Auto) 77.7 H, Lymph % (Auto) 6.8 L, [place] % (Auto) 10.5 H, Eos % (Auto) 4.0, Baso % (Auto) 0.5, Absolute Neuts (auto) 3.1, Absolute Lymphs (auto) 0.27 L, Nucleated RBC % 0, APTT 152.6 H*, Sodium 138, Potassium 5.4 H, Chloride 101, Carbon Dioxide 23.6, Anion Gap 14, BUN 128 H*, Creatinine 3.95 H, Estim Creat Clear Calc 26.27 L, Est GFR (MDRD) Non-Af 15 L, BUN/Creatinine Ratio 32.4 H, Glucose 133 H, Hemoglobin A1c 7.0 H, Calcium 8.2, Phosphorus 6.6 H, Magnesium 3.0 H, Total Bilirubin 0.35, AST 21, ALT 13, Alkaline Phosphatase 89, Total Protein 7.0, Albumin 3.4, Globulin 3.6, Albumin/Globulin Ratio 0.9 Micro: Microbiology 03/22/25 19:54 Sputum, Expectorated/Coughed Gram Stain - Final 03/22/25 19:54 Sputum, Expectorated/Coughed Respiratory Culture - Preliminary Staphylococcus species 03/22/25 11:00 Urine, Clean Catch Legionella Antigen - Final 03/22/25 11:00 Urine, Clean Catch Streptococcus pneumoniae Antigen (M - Final 03/21/25 22:30 Mucosa - Nose Respiratory Panel (PCR) - Final Rhythm Strip Rhythm Strip: Sinus Rhythm Rate: 82 Ectopy: None Assessment & Plan Assessment/Plan (1) Acute kidney injury: PLAN: I am following this patient in conjunction with Dr. Larsen. He has independently evaluated this patient. Labs reviewed Plan for right possible left tunneled dialysis catheter today around 1400 Hold Heparin at 1100 this morning Pre-op antibiotic ordered We will continue to monitor this patient Charges/Coding Visit Charges Inpatient E&M: 60907 Subs Hosp L1 (pre-op; no charge)
[2025-03-25] MEDS: Ceftriaxone 2 GM in 0.9% Normal Saline (50mL MB+) 50 ML IV (09:49)
[2025-03-25] MEDS: HEPARIN/D5w 25,000 UNITS 25,000 UNITS/250 ML IV.SOLN. 19 UNITS CONT INF (10:17)
--- NOTE | 2025-03-25 11:39 | PCM.PN.REN ---
Subjective Subjective Patient sitting in recliner chair. He became hypotensive and Lasix drip stopped, went into A-fib and being treated with IV amiodarone and heparin. He denies any complaints today. Son at bedside. Objective Data Objective Data Vital Signs: Vital Signs Temp Pulse Resp BP Pulse Ox O2 Del Method O2 Flow Rate 97.7 F L 111 H 31 H 100/74 97 Nasal Cannula 4 03/25/25 00:30 03/25/25 09:00 03/25/25 09:00 03/25/25 09:00 03/25/25 09:00 03/25/25 09:00 03/25/25 09:00 Oxygen Flow Rate (L/min) 4 Oxygen Delivery Method Nasal Cannula Weight: 163.4 kg Body Mass Index (BMI) 51.5 Intake & Output: Intake and Output for Last 24 Hours 03/23/25 03/24/25 03/25/25 23:59 23:59 23:59 Intake Total 1223.72 / 1223.72 811.94 / 845.24 583.58 / 583.58 Output Total 600 / 600 1150 / 1150 Balance 623.72 / 623.72 -338.06 / -304.76 583.58 / 583.58 Lab / Micro Data 03/25/25 02:19 03/25/25 02:19 Labs: Laboratory Results - last 24 hr 03/24/25 12:10: POC Glucose 206 H 03/24/25 17:27: POC Glucose 125 H 03/24/25 19:17: WBC 4.4, RBC 4.08 L, Hgb 11.7 L, Hct 39.0 L, MCV 95.6 H, MCH 28.7, MCHC 30.0 L, RDW Std Deviation 51.4 H, RDW Coeff of Paddy 14.7 H, Plt Count 196, MPV 11.0, Immature Gran % (Auto) 0.200, Neut % (Auto) 82.8 H, Lymph % (Auto) 6.1 L, [place] % (Auto) 7.9, Eos % (Auto) 2.5, Baso % (Auto) 0.5, Absolute Neuts (auto) 3.7, Absolute Lymphs (auto) 0.27 L, Nucleated RBC % 0, PT 15.2 H, INR 1.2, APTT 28.4 10/06/25 21:12: POC Glucose 197 H 03/25/25 02:19: WBC 4.0 L, RBC 3.84 L, Hgb 11.2 L, Hct 36.4 L, MCV 94.8 H, MCH 29.2, MCHC 30.8 L, RDW Std Deviation 51.5 H, RDW Coeff of Paddy 14.7 H, Plt Count 186, MPV 10.7, Immature Gran % (Auto) 0.500, Neut % (Auto) 77.7 H, Lymph % (Auto) 6.8 L, [place] % (Auto) 10.5 H, Eos % (Auto) 4.0, Baso % (Auto) 0.5, Absolute Neuts (auto) 3.1, Absolute Lymphs (auto) 0.27 L, Nucleated RBC % 0, APTT 152.6 H*, Sodium 138, Potassium 5.4 H, Chloride 101, Carbon Dioxide 23.6, Anion Gap 14, BUN 128 H*, Creatinine 3.95 H, Estim Creat Clear Calc 26.27 L, Est GFR (MDRD) Non-Af 15 L, BUN/Creatinine Ratio 32.4 H, Glucose 133 H, Hemoglobin A1c 7.0 H, Calcium 8.2, Phosphorus 6.6 H, Magnesium 3.0 H, Total Bilirubin 0.35, AST 21, ALT 13, Alkaline Phosphatase 89, Total Protein 7.0, Albumin 3.4, Globulin 3.6, Albumin/Globulin Ratio 0.9 03/25/25 08:40: POC Glucose 151 H Micro: Microbiology 03/22/25 19:54 Sputum, Expectorated/Coughed Gram Stain - Final 03/22/25 19:54 Sputum, Expectorated/Coughed Respiratory Culture - Preliminary Staphylococcus aureus 03/22/25 11:00 Urine, Clean Catch Legionella Antigen - Final 03/22/25 11:00 Urine, Clean Catch Streptococcus pneumoniae Antigen (M - Final 03/21/25 22:30 Mucosa - Nose Respiratory Panel (PCR) - Final Rhythm Strip Rhythm Strip: Sinus Rhythm Rate: 82 Ectopy: None and PVC(s) Physical Exam Narrative Alert and orient x 3, no apparent distress no pallor no icterus no JVD s1s2 no murmurs Diminished breath sounds posteriorly. On O2 nasal cannula abdomen soft +++ edema bilateral legs and thighs Assessment & Plan Assessment/Plan (1) Acute kidney injury: PLAN: Baseline creatinine prior to this admission appears to be around 1.5. Currently creatinine is 2.2, BUN is disproportionately high, likely related to cardiorenal syndrome physiology. Urine analysis shows microscopic hematuria and proteinuria. He has never seen blood in his urine subjectively. 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 Appears volume overloaded. Weight gain is unclear. Continue IV Lasix for now. 03/23/2025. Moderate response to IV Lasix. BUN is higher, creatinine higher. Breathing is still not so great. Lower extremity edema about the same. We discussed about worsening renal failure in the setting of congestive heart failure. We discussed about the potential for dialysis. It seems he had renal failure in 2022 under similar circumstances. Was on dialysis for about 2 weeks and recovered. He is familiar with the process. Continue IV Lasix for now, if renal function continues to worsen, will consider short-term dialysis. All questions answered. 03/24/2025; hypervolemic BRYANNA superimposed on CKD stage III. Patient remains on Lasix drip. Urine output documented around 600 mL yesterday. Remains on O2 3 to 4 L nasal cannula. Weight up ~1kg today, up to 161 kg. Creatinine is worsening, 3.22 today. BUN worsening up to 124 today. Reviewed with patient that he is likely heading towards needing renal placement therapy. Patient had been on hemodialysis at [facility] and also outpatient kidney center in [place] about 2 years ago therefore familiar with hemodialysis. Patient states wants to talk with his but if dialysis is necessary/recommended he will be in agreement. There is no urgent need for hemodialysis today, potassium and bicarb acceptable. Reviewed nephrology plan with patient today, questions answered. Will review nephrology plan with Dr. Maya. Labs ordered for morning. Recommend strict urine output measurement. Assessment and plan reviewed with Dr. Gauthier. 03/25/2025; kidney function worsening, significantly fluid overloaded, creatinine 3.95, BUN 128. Potassium 5.4 today, received dose of Kayexalate. Patient is off Lasix drip due to hypotension, went into A-fib and on IV amiodarone and heparin. Urine output around 1.1 L yesterday. On oral midodrine. Plan is for patient to have tunneled hemodialysis catheter placed today. Depending on timing we will plan for dialysis afterwards. Patient will dialyze on 2K bath and attempt fluid removal as patient/blood pressure tolerates. Case management consulted for dialysis arrangements/discharge planning to [facility], Dx: BRYANNA. We will continue to monitor for renal recovery. Assessment and plan reviewed with Dr. Gauthier.
--- NOTE | 2025-03-25 14:16 | PRE.ANES_ITS ---
ASA Classification* ASA Classification ASA Classification: 4 Assessment & Plan Anesthesia* Anesthesia Assessment Anesthesia Assessment: Discussed sedation and/or anesthesia options, risks, benefits, and alternatives with patient/parents/legal guardian/POA. Questions invited. The patient/parents/legal guardian/POA seems to understand and agrees to proceed with anesthesia plan. Reviewed the physical assessment, medical history, allergy history and patient home medications list prior to surgery/procedure/anesthetic and documented any changes. Performed airway and anesthesia risk assessments. Procedural Plan Add'l anesthesia plan details: Patient has elevated potassium. Last check over 12 hours ago. Has been receiving Kayexalate. Will recheck stat potassium prior to procedure. Patient also has rapid ventricular rate with atrial fibrillation. Is on amiodarone. Cardizem. 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 Dr. Oshea feels that the patient is as optimized as possible from a cardiology standpoint and should proceed with procedure at this time in light of dialysis needs. Anesthesia Type Anesthesia Type: MAC Anesthesia Focused Assessment* Temperature: 97.7 F Pulse Rate: 137 Blood Pressure: 94/70 Respiratory Rate: 31 Pulse Ox: 97 Oxygen Flow Rate (L/min): 4 Airway Assessment Mouth opens: >3 cm Mallampati Score: II Comment: 03/22/2025 echo shows EF of 35%. Global hypokinesis left ventricle. Moderate aortic stenosis. Labs Anesthesia Preop lab: CBC WBC, (4.4-11.0) 4.0 K/mm3 L Today, 02:19 RBC, (4.6-6.2) 3.84 M/mm3 L Today, 02:19 Hgb, (13.0-16.5) 11.2 g/dL L Today, 02:19 Hct, (40-54) 36.4 % L Today, 02:19 Plt Count, (150-450) 186 K/mm3 Today, 02:19 CHEMISTRY Potassium, (3.3-5.1) 5.4 mmol/L H Today, 02:19 Sodium, (133-145) 138 mmol/L Today, 02:19 Magnesium, (1.5-2.2) 3.0 mg/dL H Today, 02:19 Phosphorus, (2.7-4.5) 6.6 mg/dL H Today, 02:19 BUN, (4-19) 128 mg/dL H* Today, 02:19 Creatinine, (0.70-1.20) 3.95 mg/dL H Today, 02:19 Glucose, (70-99) 133 mg/dL H Today, 02:19 POC Glucose, (74-106) 175 mg/dL H Today, 11:07 TSH, (0.300-4.200) 2.420 uIU/mL 03/22/25, 03:58 COAG PT, (11.7-14.9) 15.2 SECONDS H 03/24/25, 19:17 Pre-Assessment Diagnosis/Proposed Procedure Planned Operative Procedure(s): Tunneled dialysis catheter placement Anesthesia History 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 When Was Last Pacemaker Check QUESTION #4 FULL TEXT: You/Your Family Experience fever (hyperthermia) with Anesthesia Last Oral Intake Last Oral intake: Last Oral Intake NPO since Meds taken in AM with sips of water? Meds patient instructed to take am of surgery PONV PONV - golf club maker: PONV - golf club maker Female HX of Motion Sickness HX of N/V After Surgery Non-Smoker Duration of Surgery greater than 60 minutes Number of Risk Factors PONV Score Height & Weight Height & Weight: Anesthesia: Height & Weight Height 5 ft 10 in 03/22/25 13:58 Weight: 163.4 kg 03/25/25 03:17 Body Mass Index (BMI) 51.5 03/25/25 03:17 Respiratory Assessment Respiratory Assessment - golf club maker: Respiratory Tract Infection Hx - golf club maker Hx Respiratory Tract Infection No 12/27/18 09:16 STOP Sleep Apnea STOP Sleep Apnea - golf club maker: STOP Sleep Apnea - golf club maker Hx Hypertension Yes 03/22/25 15:32 Hx Sleep Apnea Yes 03/21/25 22:13 CPAP No 03/21/25 22:13 BIPAP Yes 03/21/25 22:13 Do you snore loudly (louder than talking or can be heard Do you often feel tired/ fatigued/ sleepy during daytime? Has anyone observed you stop breathing during sleep? STOP Results Positive 03/21/25 22:13 QUESTION #5 FULL TEXT : Do you snore loudly (louder than talking or can be heard through closed doors)? 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 Specify any problems Hx of Preganancy in last 3 N/A 03/21/25 22:13 Months Nurse Filling Out Transfusion [id number] 03/21/25 22:13 & Questions: Date: 03/21/25 03/21/25 22:13 Time: 22:36 03/21/25 22:13 Patient unable to answer at this time (ie. confused, unrespo /Reproduction History /Reproductive History - golf club maker: /Reproductive Hx- golf club maker Hx Now Gestational Age (in weeks): EDC: Hx Hx Para Hx Section SAB Active Medications Active Medications: Current Medications Generic Name Dose Route Start Last Admin Trade Name Freq PRN Reason Stop Dose Admin Acetaminophen 650 mg 03/21/25 21:56 Acetaminophen 325 Mg Tablet PO Q4H PRN PRN Fever, pain 1-03/28 Al Hydroxide/Mg Hydroxide 30 ml 03/21/25 21:56 Mag Hydrox/Al Hydrox/Simeth 30 Ml Udc PO Q6H PRN PRN Gastric Burning Albuterol Sulfate 2.5 mg 03/21/25 21:56 Albuterol 2.5 Mg/3 Ml Vial.Neb. INHALATION Q2H PRN PRN Dyspnea, wheezing Alteplase, Recombinant 2 mg 03/25/25 11:57 Alteplase 2 Mg/2 Ml Vial IV 03/25/25 23:57 X1 PRN HD catheter dysfunction Aspirin 81 mg 03/22/25 08:00 03/25/25 08:42 Aspirin 81 Mg Tab.Chew PO 81 mg BREAKFAST DOUGIE Administration Glucagon 1 mg 03/21/25 21:56 Glucagon 1 Mg/Ml Syringe IM X1 PRN HYPOGLYCEMIA Protocol Guaifenesin 20 ml 03/21/25 21:56 Guaifenesin 10 Ml Udc (200mg/10ml) PO Q4H PRN PRN COUGH Hemodialysis Solution 6 bag 03/25/25 12:00 Pureflow B 2k Dialysis Soln 1 Bag PF 03/26/25 23:59 UD DOUGIE Protocol Heparin Sodium (Porcine) 0 unit 03/24/25 18:41 Heparin Nomogram Adjustment 5,000 Unit/Ml Vial IV UD PRN Dose Adjustment Protocol Heparin Sodium (Porcine) 1,000 - 3,000 units 03/25/25 11:57 Heparin 10,000 Units/10 Ml Vial IV 03/25/25 23:57 X1 PRN HD catheter closing Hydralazine HCl 10 mg 03/21/25 21:56 Hydralazine 20 Mg/Ml Vial IV Q4H PRN PRN SBP > 160 Protocol Dextrose 250 mls @ 0 mls/hr 03/21/25 21:56 Dextrose 10%-Water IV .Q0M PRN HYPOGLYCEMIA Protocol As Directed Sodium Chloride 250 mls @ 15 mls/hr 03/21/25 22:14 IV .[id number] PRN Saline Flush Sodium Chloride 250 mls @ 15 mls/hr 03/21/25 22:14 IV .[id number] PRN Additional IVPB Infusion Ceftriaxone Sodium 2 gm/ 50 mls @ 100 mls/hr 03/22/25 06:50 03/25/25 11:24 Sodium Chloride IV Infused Q24 DOUGIE Infusion Amiodarone HCl 360 mg/ 200 mls @ 16.667 mls/hr 03/24/25 23:30 03/25/25 11:46 Dextrose CONT INF 03/25/25 17:29 0.5 mg/min .Q12H DOUGIE 16.7 mls/hr 0.5 MG/MIN Administration Amiodarone HCl 360 mg/ 200 mls @ 16.667 mls/hr 03/25/25 17:30 Dextrose CONT INF .Q12H DOUGIE 0.5 MG/MIN Heparin Sodium/Dextrose 25,000 units in 250 mls @ 22 mls/hr 03/24/25 18:45 03/25/25 10:59 CONT INF 0 units/hr On Hold: 03/25/25 11:00 .[id number] DOUGIE 0 mls/hr Protocol Titration Cefazolin Sodium 3 gm/ Sodium 115 mls @ 200 mls/hr 03/25/25 14:00 Chloride IV 03/25/25 14:34 X1 ONE Insulin Human Lispro 0 unit 03/21/25 22:00 03/25/25 11:23 Insulin Lispro 100 Unit/Ml Insuln.Pen SC Not Given ACHS [facility] Protocol Insulin Lispro Protam/Lispro Human 5 unit 03/21/25 22:00 03/25/25 08:55 Insulin Human 75/25 [place] SC Not Given BID [facility] Melatonin 3 mg 03/21/25 21:56 Melatonin 3 Mg Tablet PO QHS PRN PRN INSOMNIA Midodrine 10 mg 03/24/25 20:06 03/25/25 11:24 Midodrine Hcl 5 Mg Tablet PO Not Given TIDCM [facility] Ondansetron HCl 4 mg 03/21/25 21:56 Ondansetron 4 Mg/2 Ml Vial IV Q8H PRN PRN NAUSEA/VOMITING Senna/Docusate Sodium 2 tablet 03/21/25 21:56 Senna/Docusate Sodium 1 Tablet PO BID PRN PRN Constipation Sodium Chloride 10 - 40 ml 03/21/25 22:14 03/22/25 04:56 0.9% Saline Lock 10 Ml Syringe IV 10 ml UD PRN Administration SALINE FLUSH Sodium Chloride 1,000 ml 03/25/25 12:00 0.9% Normal Saline 1,000 Ml Iv.Soln. OPERA.SITE 03/26/25 23:57 X1 DOUGIE Sodium Chloride 200 ml 03/25/25 11:57 0.9% Normal Saline 1,000 Ml Iv.Soln. IV 03/25/25 23:57 X1 PRN to maintain SBP >90mmHg during Dialysis [facility] Medical History ANDRADE (obstructive sleep apnea) HLD (hyperlipidemia) HTN (hypertension) Non-ischemic cardiomyopathy Morbid obesity with BMI of 50.0-59.9, adult Moderate aortic valve stenosis Controlled type 2 diabetes mellitus with hyperglycemia Dilated cardiomyopathy Walking difficulty due to ankle and foot Wound healing, delayed Vitamin D deficiency Pulmonary embolism Congestive heart failure Aortic valve disease Lymphedema Venous insufficiency of both lower extremities Sleep apnea Super obesity Hyperlipidemia Home Medications ?Medication ?Instructions ?Recorded ?Last Taken ?Type glipizide 5 mg tablet 5 mg PO DAILY diabetes 07/1803/21/25 History aspirin 81 mg capsule 81 mg PO DAILY preventative 03/06/24 03/21/25 History insulin human U-100 NPH-regulr 5 unit subcut BID diabe cecil 03/06/24 03/21/25 History 70-30 mix 100 unit/mL subcutaneous susp (Humulin 70/30 U-100 Insulin) empagliflozin 10 mg tablet 10 mg PO DAILY 30 days #30 tabs 03/09/24 03/21/25 Rx (Jardiance) bumetanide 2 mg tablet 2 mg PO BID water pill 90 da ys 03/20/24 03/21/25 Rx #180 tabs carvedilol 6.25 mg tablet 6.25 mg PO BID 90 days #180 tabs 03/20/24 03/21/25 Rx lisinopril 5 mg tablet 5 mg PO BID 90 days #180 tab s 03/20/24 03/21/25 Rx spironolactone 25 mg tablet 25 mg PO DAILY 90 days #90 tabs 03/20/24 03/21/25 Rx Allergy/AdvReac Type Severity Reaction Status Date / Time No Known Allergies Allergy Verified 03/21/25 16:12 Family History Mother Cancer Glaucoma Brother Aortic aneurysm Father Myocardial infarction Sister Cancer Sister Cardiomyopathy Brother Pulmonary fibrosis Surgical History History of ankle surgery History of foot surgery History of tonsillectomy Social History household members: none Smoking Status: Never smoker alcohol intake: never substance use type: does not use caffeine: Yes Type: carbonated beverages Number of servings: 1 Review of Systems (Anesthesia) ROS Narrative System reviewed and no additional complaints, except as documented.
[2025-03-25] MEDS: 0.9% Normal Saline (500mL Bag) 500 ML 15 ML IV (14:46)
[2025-03-25 15:13] LABS: Potassium 5.2 mmol/L (3.3-5.1)
[2025-03-25] MEDS: NORMAL SALINE IV (15:45)
[2025-03-25] MEDS: Cefazolin 1 GM/5 ML Vial 3 GM IV (15:45)
[2025-03-25] MEDS: Lidocaine 1% (5 ml sdv) 5 ML Vial 10 ML IV (15:57)
--- NOTE | 2025-03-25 16:34 | PCM.OPRPT ---
Procedures Cardiovascular CF Procedures [id number]: 56483 Insert tunneled cv cath Operative Report (Standard) Operative Information Date of Procedure: 03/25/25 Pre-Operative Diagnosis: Acute kidney injury on chronic kidney disease requiring initiation of hemodialysis Post-Operative Diagnosis: Same Surgery/Procedure Performed: Ultrasound and fluoroscopic guided placement of tunneled right internal jugular hemodialysis catheter director of instructional technology: Yes Blueprint Reproducer: Ann Gooden Tasks completed by list of first job ideas: Retracting Type of Anesthesia: Local MAC RN Documented Start/Stop Times: Operation Date: 03/25/25 14:00 Case Time Into Pre-Op 03/25/25 14:40 Anesthesia Start 03/25/25 15:46 Into Room 03/25/25 15:46 Procedure Start 03/25/25 16:10 Procedure End 03/25/25 16:33 Anesthesia End 03/25/25 16:40 Out of Room 03/25/25 16:40 Into Recovery 03/25/25 16:43 Out of Recovery 03/25/25 17:18 Procedure Start Time: 16:10 Procedure Stop Time: 16:33 Select all DRAINS/GRAFTS/IMPLANTS that apply: Implanted device (Palindrome chronic dual-lumen catheter 14.5 Persian by 19 cm) Implanted device details: Reference [id number], LOT [id number] Estimated Blood Loss: 10 Specimen collected: No Description of surgery: After appropriate identification in the preoperative holding area and counseling of the procedure risk the patient was brought to the operating room where they were positioned supine on the operating room table. Preoperative antibiotics were completely administered. Limited sedation was begun per anesthesia given patient's tenuous cardiopulmonary physiology. Bedside ultrasound was used to confirm patency of patient's right internal jugular vein and the patient's right neck was prepped and draped in usual sterile fashion. He was unable to be reclined beyond approximately 45 degrees without significant respiratory distress so the procedure was done in a head up positioning. Formal timeout was conducted to confirm both the patient and the procedure. Procedure was begun with ultrasound-guided access of the right internal jugular vein using a standard 035 guidewire on the first attempt, however, the wire would not feed in an antegrade fashion and appeared to be bowing the medial side of the vein. Therefore the needle was withdrawn and a second attempt was made to try to straighten out the trajectory of the wire. This time the wire fed easily without resistance and fluoroscopy confirmed appropriate position of the wire. At this point I made a measurement from the insertion site to the right atrium of approximately 15 cm. Desiring some room for the patient's tunneling/cuff placement, elected to proceed with a 19 cm catheter. The insertion site was then enlarged sharply and bluntly. Measuring back from the proximal insertion site on the catheter, we determined that the tunneling site would need to be 4 cm away from the insertion site. Therefore this was measured out on the patient's chest and a counterincision was made at this point after instilling local anesthetic. A gentle curve of the tunneling tract to the insertion site was also instilled with local anesthetic. Then the catheter was connected to the tunneling device and was tunneled to the insertion site. Next the insertion site was serially dilated and the peel-away sheath was placed under fluoroscopy. The catheter was fed through the peel-away sheath and once we neared completion another fluoroscopy image was obtained. Functionally, the catheter was tested with aspiration and flush of injectable saline which it did with ease. The insertion site was then closed with a single interrupted 2-0 nylon stitch. Another 2-0 nylon stitch was used to close down the insertion site at the tunneling entrance as a means of creating a cerclage. Lastly, the catheter was secured at the tiedown points on each port with a interrupted 2-0 nylon. Now each catheter lumen was locked with 2 mL heparin concentration 1000 units/mL) per package specification. Chlorhexidine gel dressing was placed about the catheter. A small OpSite was applied to the insertion site. Patient was then allowed to emerge from sedation and was taken to PACU in stable condition. A chest x-ray was ordered in PACU for review of the catheter placement and to exclude pneumothorax. Surgical Findings: - patent right internal jugular vein ? Easy flush and aspiration of new hemodialysis catheter Complications Complications: No
[2025-03-25 17:00] LABS: Allen Test Positive; Base Excess -1 mmol/L (-2 to +2); FI02 100.0; PO2 57 mmHG (75-100); SITE L Radial; SO2 70 % (95-99); Time Given 16:58:00
--- NOTE | 2025-03-25 17:00 | RAD_ITS ---
PROCEDURE: CXR FOR LINE PLACEMENT 03/25/2025 REASON FOR EXAM: STATUS POST LINE PLACEMENT TECHNIQUE: Procedure Code: RADCXRLP Modality: DX Procedure: CXR FOR LINE PLACEMENT COMPARISON: 03/21/2025 FINDINGS: Endotracheal tube tip terminates roughly 3.5 cm above the zachary. Right IJ approach tunneled dialysis catheter tip terminates at the superior cavoatrial junction. Cardiomegaly. Interstitial and perihilar pulmonary edema and moderate-large left pleural effusion/atelectasis. Coexisting consolidation not excluded. No pneumothorax. RAD/CXR for Line Placement IMPRESSION: 1. Endotracheal tube tip 3.5 cm above the zachary. 2. Right IJ tunneled dialysis catheter tip at the superior cavoatrial junction. 3. No pneumothorax. Cardiomegaly with persistent fluid overload. Reading Location: [id number]
--- NOTE | 2025-03-25 17:20 | PCM.HOSP.N ---
Hospitalist Note I was called postprocedure by the surgeon. Patient acutely decompensated became hypoxic with sats in the 60s. He was bagged in PACU and required intubation. ABG done was done while he was being bagged with a pH of 7.02, pCO2 of 116.2 and pO2 of 57. Flash pulmonary edema was of a concern however it appears that he is likely hypercapnic related to medications given for sedation as well. Per discussion with the surgeon the line was placed in upright position as he is unable to lie flat. Chest x-ray was reviewed and patient has complete fairly significant whiteout of left lung. ET tube is in the correct place and not in the right mainstem. He does appear to be volume overloaded. Case discussed with critical care medicine and nephrology. Nephrology checking to see if we can dialyze him tonight. Consult for critical care medicine-->D/W Dr. Rojas will consult in am. Repeat ABG in am. Repeat CXR in am.
--- NOTE | 2025-03-25 17:36 | PCM.POST.ANE ---
Anesthesia: Postop Eval I Current Vital Signs Temperature: 98.9 F Pulse Rate: 127 Blood Pressure: 107/96 Respiratory Rate: 12 Pulse Ox: 96 Oxygen Delivery Method: Mechanical Ventilator Oxygen Flow Rate (L/min): 10 Fraction of Inspired Oxygen (FIO2): 1.0 Assessment Airway patent: Yes Spontaneous unlabored respirations: No Mental status: Unresponsive nausea: No Vomiting: No Anesthesia Complication: Yes Anesthesia Complication Comment:: Patient hypoxic, tachypneic upon arrival to PACU. Patient mask ventilated with AMBU bag. Intubated at 1652. 8.0 ETT, 24cm@ lips. Fluid Hydration Crystalloid volume administer (ml): 200 Total IV fluid infused: 200 Progress Note Anesthesia document: Postop Eval 1 completed: Yes
--- NOTE | 2025-03-25 17:37 | PCM.POSTANE2 ---
Anesthesia Postop Eval I Sum Anesthesia Postop Eval I Summary Anesthesia Postop Eval I Summary: Anesthesia Postop Eval I: Assessment Summary Airway patent Spontaneous unlabored respirations Mental status nausea Vomiting Anesthesia Postop Eval I: Fluid Summary Crystalloid volume administer (ml) Colloids volume administered ( ml) Blood Product volume administered (ml) Total IV fluid infused Anesthesia Postop Eval I: Summary Notes Anesthesia Complication Anesthesia Complication Comment: Post-operative progress note Anesthesia: Postop Eval II Evaluation Mental status: Asleep Pain Level: 0 nausea: No Vomiting: No Progress Note Post-operative progress note: Patient taken to the ICU postop. Shortly after patient arrived in PACU. Patient had a hypoventilation, arterial blood gas performed which showed patient acidotic and hypercarbic. Decision was made to intubate the patient lysed LEAD RETAIL SALES ASSOCIATE in the PACU. Patient was then taken to the ICU you for ventilation and care. Dr. Larsen discussed with hospitalist who is assuming care in the ICU. Upon arrival to ICU, vital signs with blood pressure of 107/60. Heart rate 125. Saturation 95% on 100% FiO2 and on ventilator. With 8 of PEEP. Complications Anesthesia Complication: No
[2025-03-25] MEDS: fentaNYL 100 MCG/2 ML Ampul IV (17:45)
[2025-03-25] MEDS: fentaNYL drip 100 ML 2.5 MCG CONT INF (17:45)
--- NOTE | 2025-03-25 17:45 | CPS ---
drawn by TECHNICAL SALES MANAGER in PACU
[2025-03-25] MEDS: 0.9% Saline Lock 10 ML Syringe IV ×2 (17:48→20:03)
[2025-03-25 18:06] LABS: Allen Test Positive; Base Excess -1 mmol/L (-2 to +2); FI02 100.0; PEEP 8; PO2 64 mmHG (75-100); RR 20; SITE L Radial; SO2 88 % (95-99)
--- NOTE | 2025-03-25 18:25 | PCM.OPRPT ---
Procedures Hospitalists Procedures: [id number] Insert Non-tunnel CV Cath Operative Report (Standard) Operative Information Date of Procedure: 03/25/25 Pre-Operative Diagnosis: Hypotensive requiring venous access for possible vasopressors while requiring CRRT for severe volume overload in setting of acute kidney injury Post-Operative Diagnosis: Same Surgery/Procedure Performed: Ultrasound-guided placement of right femoral CVC gunner's mate: No Type of Anesthesia: Local RN Documented Start/Stop Times: Operation Date: 03/25/25 14:00 Case Time Into Pre-Op 03/25/25 14:40 Anesthesia Start 03/25/25 15:46 Into Room 03/25/25 15:46 Procedure Start 03/25/25 16:10 Procedure End 03/25/25 16:33 Anesthesia End 03/25/25 16:40 Out of Room 03/25/25 16:40 Into Recovery 03/25/25 16:43 Out of Recovery 03/25/25 17:18 Procedure Start Time: 06:00 Procedure Stop Time: 06:15 Select all DRAINS/GRAFTS/IMPLANTS that apply: Implanted device Implanted device details: 7 Bulgarian triple-lumen CVC Estimated Blood Loss: 3 Specimen collected: No Description of surgery: Procedure name: Insertion of 7 Bulgarian, [id number] central venous catheter (20 cm length) Procedure detail: Consent was presumed given patient's tenuous hemodynamic status and the need to start CRRT. Patient was positioned semisupine to expose the right groin. The right femoral vein was localized using bedside ultrasound. It appeared to be widely patent with good color flow and color Doppler. The skin was then prepped and draped in usual sterile fashion. The superficial tissues of the neck were then anesthetized with a local block using 5 mL 1% Xylocaine. Under direct ultrasound guidance the vein was accessed on a single attempt with return of dark red blood. Using a Seldinger technique a guidewire was placed without difficulty. The guidewire tract was then opened at the skin with an 11 blade and dilated dilated. Then the tract was dilated prior to insertion of the central venous catheter. All ports aspirated and flushed ease. The catheter was then sewn in using 0 silk in three-point fixation. Insertion site was cleaned and a chlorhexidine dressing was placed about the catheter to maintain sterility. Surgical Findings: ? Over lapbelt in the common femoral artery and vein in the proximal thigh until the inguinal crease. Widely patent vessels Complications Complications: No
[2025-03-25] MEDS: Propofol 10MG/Ml 1,000 MG/100 ML Bottle 9.8 MG CONT INF (19:05)
[2025-03-25] MEDS: TITRATION PARAMETER CHANGE 1 EACH IV (19:15)
[2025-03-25 19:40] LABS: Hematocrit 37.8 % (40-54); Hemoglobin 11.4 g/dL (13.0-16.5); Immature Granulocytes Count 0.040 X10^3/uL (0.0-0.0); Mean Corp Hgb Conc 30.2 g/dL (32-36); Mean Corpuscular Volume 95.7 fL (80-94); Mean Platelet Vol. 10.9 fl (6.2-12.0); NRBC Flagged by Analyzer 0 % (0-5); POSITIVE DIFFERENTIAL YES; Platelet Count 204 K/mm3 (150-450); RBC Distribution Width CV 14.7 % (11.6-14.6); RBC Distribution Width SD 52.1 fl (35.1-43.9); Red Blood Count 3.95 M/mm3 (4.6-6.2); White Blood Count 5.9 K/mm3 (4.4-11.0)
[2025-03-25] MEDS: Amiodarone 150 MG in Dextrose 5%-Water (100mL Bag) 100 ML 600 MG IV BOLUS (19:44)
--- NOTE | 2025-03-25 19:44 | RAD_ITS ---
PROCEDURE: ABDOMEN SINGLE VIEW 03/25/2025 REASON FOR EXAM: OG PLACEMENT TECHNIQUE: Procedure Code: RADABD Modality: DX Procedure: ABDOMEN SINGLE VIEW COMPARISON: Earlier same day 03/25/2025. FINDINGS: Enteric tube terminates appropriately within the stomach in the left upper abdomen. No dilated bowel loops or discernible free air is seen in the upper abdomen. Unchanged left basilar pleural effusion/atelectasis. RAD/Abdomen Single View IMPRESSION: Enteric tube terminates appropriately within the stomach. Reading Location: [id number]
[2025-03-25] MEDS: Norepinephrine 8 MG in 0.9% Normal Saline (250mL Bag) 242 ML 9.4 MG CONT INF (19:45)
--- NOTE | 2025-03-25 19:50 | RAD_ITS ---
PROCEDURE: ABDOMEN SINGLE VIEW (PORTABLE) 03/25/2025 REASON FOR EXAM: OG PLACEMENT TECHNIQUE: Procedure Code: RADABD_P Modality: DX Procedure: ABDOMEN SINGLE VIEW (PORTABLE) COMPARISON: Earlier same day 03/25/2025. FINDINGS: Enteric tube has been slightly advanced, distal tip now collimated from view in the left abdomen. Remainder of exam is unchanged. Left basilar pleural effusion/atelectasis. RAD/Abdomen Single View (Portable) IMPRESSION: Enteric tube has been advanced, distal tip now collimated from view in the left abdomen. Reading Location: [id number]
[2025-03-25] MEDS: PUREFLOW B SOLUTION 4K 5,000 ML BAG 9 BAG PF (19:54)
[2025-03-25] MEDS: Chlorhexidine 15 ML PO (20:03)
[2025-03-25] MEDS: 0.9% Saline Lock 10 ML Syringe 20 ML IV (20:03)
--- NOTE | 2025-03-25 20:07 | EKG12_ITS ---
Test Reason : RHYTHM CHANGE Blood Pressure : */* mmHG Vent. Rate : 61 BPM Atrial Rate : 61 BPM P-R Int : 202 ms QRS Dur : 176 ms QT Int : 502 ms P-R-T Axes : * -47 94 degrees QTcB Int : 505 ms Sinus rhythm with occasional Premature ventricular complexes Left axis deviation Left bundle branch block Abnormal ECG When compared with ECG of 24-Mar-2025 16:48, Sinus rhythm has replaced Atrial fibrillation Vent. rate has decreased by 63 bpm Nonspecific T wave abnormality now evident in Anterior leads Nonspecific T wave abnormality has replaced inverted T waves in Lateral leads Confirmed by RINA CHILEL, NERI ([id number]), subeditor ISSA RECINOS ([id number]) on 03/26/2025 1:33:41 PM Referred By: RIMMA Confirmed By: NERI FLYNN MD
[2025-03-25 20:13] LABS: Magnesium 2.8 mg/dL (1.5-2.2)
[2025-03-25 20:30] LABS: Anion Gap 18 (5-15); BUN 134 mg/dL (4-19); BUN/Creat Ratio 36.8 RATIO (10-20); Calcium,Total 8.0 mg/dL (7.6-11.0); Carbon Dioxide 21.9 mmol/L (21.0-32.0); Chloride 101 mmol/L (98-108); Estimated Creatinine Clearance 28.74 ml/min (50-250); Glucose 188 mg/dL (70-99); Potassium 5.4 mmol/L (3.3-5.1)
[2025-03-25 21:34] LABS: CPK Total, Creatine Kinase 66 U/L (24-195); Triglycerides 81 mg/dL
--- NOTE | 2025-03-25 23:25 | PCM.HOSP.N ---
Hospitalist Note Insulin 75/25 stopped and adjusted lispro to high SSI while pt NPO and intubated. Added CBC/d and BMP daily x3d.
[2025-03-26] VITALS (69 sets, daily range): BP systolic 88–126; BP diastolic 48–66; PULSE 56–95; RESP 11–24; TEMP 36–37.9; O2SAT 92–100; BMI 51.3; BMI 50.1; BMI 49.5
[2025-03-26] MEDS: 0.9% Saline Lock 10 ML Syringe IV ×6 (00:11→18:27)
[2025-03-26] MEDS: fentaNYL drip 100 ML 7.5 MCG CONT INF (00:55)
[2025-03-26 02:02] LABS: Magnesium 2.5 mg/dL (1.5-2.2)
[2025-03-26 02:09] LABS: Albumin, Serum 3.6 g/dL (3.4-4.8); Anion Gap 13 (5-15); BUN 112 mg/dL (4-19); BUN/Creat Ratio 35.0 RATIO (10-20); Calcium,Total 8.2 mg/dL (7.6-11.0); Carbon Dioxide 25.5 mmol/L (21.0-32.0); Chloride 102 mmol/L (98-108); Estimated Creatinine Clearance 32.70 ml/min (50-250); Glucose 161 mg/dL (70-99); Potassium 4.9 mmol/L (3.3-5.1)
[2025-03-26] MEDS: Propofol 10MG/Ml 1,000 MG/100 ML Bottle 14.7 MG CONT INF ×4 (02:38→20:04)
[2025-03-26] MEDS: PUREFLOW B SOLUTION 4K 5,000 ML BAG 9 BAG PF (02:58)
[2025-03-26] MEDS: TITRATION PARAMETER CHANGE 1 EACH IV (05:39)
--- NOTE | 2025-03-26 05:40 | RAD_ITS ---
PROCEDURE: CHEST 1 VIEW (PORTABLE) 03/26/2025 REASON FOR EXAM: ET TUBE TECHNIQUE: Frontal view of the chest. COMPARISON: 03/25/2025. FINDINGS: Right internal jugular central catheter is in good position with its tip in the superior vena cava. Endotracheal tube is in good position. Enteric feeding tube is in good position. Mild increase in pulmonary venous congestion. Mild increase in interstitial pulmonary congestion. Unchanged minimal bilateral pleural effusions. Enlarged cardiac silhouette. Normal mediastinum and pilar. Normal visualized pulmonary arteries. Atheromatous plaques of the visualized aortic arch and descending thoracic aorta. Diffuse spondylosis of the visualized thoracic spine. Normal visualized ribs, clavicles. Degenerative joint disease. There is no demonstrated abnormality of the visualized soft tissue structures of the upper abdomen. RAD/Chest 1 View (Portable) IMPRESSION: Right internal jugular central catheter is in good position with its tip in the superior vena cava. Endotracheal tube is in good position. Enteric feeding tube is in good position. Mild increase in pulmonary venous congestion. Mild increase in interstitial pulmonary congestion. Unchanged minimal bilateral pleural effusions. Enlarged cardiac silhouette. Reading [facility] [id number]
[2025-03-26 06:54] LABS: Hematocrit 37.5 % (40-54); Hemoglobin 11.7 g/dL (13.0-16.5); Immature Granulocytes Count 0.030 X10^3/uL (0.0-0.0); Mean Corp Hgb Conc 31.2 g/dL (32-36); Mean Corpuscular Volume 92.8 fL (80-94); Mean Platelet Vol. 11.0 fl (6.2-12.0); NRBC Flagged by Analyzer 0 % (0-5); POSITIVE DIFFERENTIAL YES; Platelet Count 214 K/mm3 (150-450); RBC Distribution Width CV 14.8 % (11.6-14.6); RBC Distribution Width SD 50.2 fl (35.1-43.9); Red Blood Count 4.04 M/mm3 (4.6-6.2); White Blood Count 6.1 K/mm3 (4.4-11.0)
[2025-03-26] MEDS: Amiodarone 360 MG in Dextrose 5% Viaflo Bag 192.8 ML 16.7 MG CONT INF ×2 (06:57→18:42)
[2025-03-26 07:18] LABS: Albumin, Serum 3.5 g/dL (3.4-4.8); Anion Gap 15 (5-15); BUN 95 mg/dL (4-19); BUN/Creat Ratio 36.8 RATIO (10-20); Calcium,Total 8.7 mg/dL (7.6-11.0); Carbon Dioxide 23.6 mmol/L (21.0-32.0); Chloride 101 mmol/L (98-108); Estimated Creatinine Clearance 40.30 ml/min (50-250); Glucose 139 mg/dL (70-99); Magnesium 2.4 mg/dL (1.5-2.2); Potassium 4.7 mmol/L (3.3-5.1)
--- NOTE | 2025-03-26 07:27 | PCM.PN.HOSP ---
Reason for Visit Chief Complaint: Dyspnea, worse with exertion. Subjective Subjective Patient tolerated CVVHD overnight without any difficulty. Has reverted back to normal sinus rhythm. Able to wean ventilator. Chest x-ray looks improved. Spontaneous breathing trials monitor is also holding off on extubation for now. Objective Data Objective Data Vital Signs: Vital Signs Temp Pulse Resp BP Pulse Ox O2 Del Method O2 Flow Rate 97.4 F L 59 L 20 H 118/57 L 95 Mechanical Ventilator 10 03/26/25 07:00 03/26/25 07:00 03/26/25 07:00 03/26/25 07:00 03/26/25 07:00 03/26/25 07:00 03/25/25 17:39 FiO2 40 03/26/25 07:00 Oxygen Flow Rate (L/min) 10 Oxygen Delivery Method Mechanical Ventilator Weight: 162.8 kg Body Mass Index (BMI) 51.3 Intake & Output: Intake and Output for Last 24 Hours 03/24/25 03/25/25 03/26/25 23:59 23:59 23:59 Intake Total 811.94 / 845.24 1109.50 / 1200.64 468.53 / 468.53 Output Total 1150 / 1150 590 / 735 1410 / 1410 Balance -338.06 / -304.76 519.50 / 465.64 -941.47 / -941.47 Lab / Micro Data 03/26/25 13:29 03/26/25 06:40 Labs: Laboratory Results - last 24 hr 03/25/25 08:40: POC Glucose 151 H 03/25/25 11:07: POC Glucose 175 H 03/25/25 14:30: Potassium 5.2 H, Total Creatine Kinase 66, Triglycerides 81 03/25/25 16:51: POC Glucose 201 H 03/25/25 19:25: WBC 5.9, RBC 3.95 L, Hgb 11.4 L, Hct 37.8 L, MCV 95.7 H, MCH 28.9, MCHC 30.2 L, RDW Std Deviation 52.1 H, RDW Coeff of Paddy 14.7 H, Plt Count 204, MPV 10.9, Immature Gran % (Auto) 0.700, Neut % (Auto) 90.7 H, Lymph % (Auto) 2.4 L, [place] % (Auto) 5.6, Eos % (Auto) 0.3, Baso % (Auto) 0.3, Absolute Neuts (auto) 5.4, Absolute Lymphs (auto) 0.14 L, Nucleated RBC % 0, Sodium 140, Potassium 5.4 H, Chloride 101, Carbon Dioxide 21.9, Anion Gap 18 H, BUN 134 H*, Creatinine 3.64 H, Estim Creat Clear Calc 28.74 L, Est GFR (MDRD) Non-Af 17 L, BUN/Creatinine Ratio 36.8 H, Glucose 188 H, Calcium 8.0, Phosphorus 7.1 H, Magnesium 2.8 H 03/25/25 23:17: POC Glucose 162 H 03/26/25 01:00: Sodium 140, Potassium 4.9, Chloride 102, Carbon Dioxide 25.5, Anion Gap 13, BUN 112 H*, Creatinine 3.20 H, Estim Creat Clear Calc 32.70 L, Est GFR (MDRD) Non-Af 20 L, BUN/Creatinine Ratio 35.0 H, Glucose 161 H, Calcium 8.2, Phosphorus 5.2 H, Magnesium 2.5 H, Albumin 3.6 03/26/25 05:08: POC Glucose 122 H 03/26/25 06:40: WBC 6.1, RBC 4.04 L, Hgb 11.7 L, Hct 37.5 L, MCV 92.8, MCH 29.0, MCHC 31.2 L, RDW Std Deviation 50.2 H, RDW Coeff of Paddy 14.8 H, Plt Count 214, MPV 11.0, Immature Gran % (Auto) 0.500, Neut % (Auto) 81.7 H, Lymph % (Auto) 6.9 L, [place] % (Auto) 8.9, Eos % (Auto) 1.3, Baso % (Auto) 0.7, Absolute Neuts (auto) 5.0, Absolute Lymphs (auto) 0.42 L, Nucleated RBC % 0, Sodium 140, Potassium 4.7, Chloride 101, Carbon Dioxide 23.6, Anion Gap 15, BUN 95 H, Creatinine 2.59 H, Estim Creat Clear Calc 40.30 L, Est GFR (MDRD) Non-Af 26 L, BUN/Creatinine Ratio 36.8 H, Glucose 139 H, Calcium 8.7, Phosphorus 4.4, Magnesium 2.4 H, Albumin 3.5 Micro: Microbiology 03/22/25 19:54 Sputum, Expectorated/Coughed Gram Stain - Final 03/22/25 19:54 Sputum, Expectorated/Coughed Respiratory Culture - Preliminary Staphylococcus aureus 03/22/25 11:00 Urine, Clean Catch Legionella Antigen - Final 03/22/25 11:00 Urine, Clean Catch Streptococcus pneumoniae Antigen (M - Final 03/21/25 22:30 Mucosa - Nose Respiratory Panel (PCR) - Final ABG Data ABG results: ABG 03/25/25 03/25/25 16:56 18:02 Specimen Type ART ART Sample Site L Radial L Radial pH 7.02 L* 7.25 L Bicarbonate Actual 29.8 H 26.5 H Total CO2 33 28 Base Excess -1 -1 O2 Saturation 70 L 88 L O2 % 100.0 100.0 ABG pCO2 116.2 H* 60.1 H ABG pO2 57 L 64 L Tristen Test Positive Positive Respiration Rate 20 O2 Delivery Device Bagging Adult Vent Vent Mode Not entered AC Tidal Volume 450.0 POC PEEP 8 Crit Call To/Read Back Yes Blood Gas Notified Whom weeman Blood Gas Notified Time 16:58:00 Radiography Diagnostic Testing: Radiology Impression Chest X-Ray 03/25/25 17:00 IMPRESSION: 1. Endotracheal tube tip 3.5 cm above the zachary. 2. Right IJ tunneled dialysis catheter tip at the superior cavoatrial junction. 3. No pneumothorax. Cardiomegaly with persistent fluid overload. Reading Location: [facility] X-Ray 03/25/25 19:44 IMPRESSION: Enteric tube terminates appropriately within the stomach. Reading Location: [facility] X-Ray 03/25/25 19:50 IMPRESSION: Enteric tube has been advanced, distal tip now collimated from view in the left abdomen. Reading Location: [facility] Chest X-Ray 03/26/25 05:40 IMPRESSION: Right internal jugular central catheter is in good position with its tip in the superior vena cava. Endotracheal tube is in good position. Enteric feeding tube is in good position. Mild increase in pulmonary venous congestion. Mild increase in interstitial pulmonary congestion. Unchanged minimal bilateral pleural effusions. Enlarged cardiac silhouette. Reading Location: [place] [address] Rhythm Strip Rhythm Strip: Sinus Rhythm Rate: 82 Ectopy: None and PVC(s) Physical Exam Const no apparent distress and well nourished; Negative for average body habitus or healthy appearing Constitutional Narrative: Morbidly obese elderly, white male, unhealthy appearing, intubated and sedated on ventilator, appears comfortable HEENT head/scalp atraumatic and moist oral mucous membranes HEENT Narrative: ET tube and OG in place Head and Scalp: normocephalic Neck Neck Narrative: Right tunneled dialysis catheter in place Resp no retractions, no use of accessory muscles and No clear to auscultation bilaterally Resp Narrative: ET tube in place on oxygen at 30%, air movement good on the right and present on the left but decreased comparatively, bibasilar crackles Auscultation: crackles; Negative for rhonchi or wheezes Cardio regular rate, S1 normal heart sound, S2 normal heart sound, no murmurs, no rub, no gallops and no clicks; Negative for no JVD Cardio Narrative: Bradycardic GI normal to inspection, nondistended, normoactive bowel sounds, soft to palpation and non-tender GI Narrative: Large protuberant abdomen Extremity Extremity Narrative: Severe bilateral lower extremity edema 3-4+ bilaterally, no cyanosis or clubbing, bilateral lower extremity with skin changes consistent with chronic venous stasis Neuro Neuro Narrative: Patient intubated and sedated unable to assess Psych Psych Narrative: Unable to assess Assessment & Plan Assessment/Plan (1) Elevated troponin: (2) Atrial fibrillation: (3) Acute kidney injury: (4) Hyperkalemia: PLAN: Plan Acute hypercapnic and hypoxic respiratory failure secondary to acute on chronic HFrEF/Staph aureus pneumonia -Patient acutely decompensated after his procedure yesterday and required intubation in PACU - Echocardiogram this admission shows an EF of 35% with moderate to severe global hypokinesis of the LV, moderately enlarged LA, trivial mitral valve insufficiency, moderate aortic stenosis and unable to estimate RV pressure - Continue dialysis--> had been on CVVHD with plan to transition to intermittent hemodialysis - Did marginally on spontaneous breathing trial so we will continue mechanical ventilation - Chest x-ray does look improved from yesterday - Will need appropriate goal-directed therapy if can tolerate - Continue current sedation - Start tube feeds as able -Will start goal-directed therapy as hemodynamics allow - Critical care/pulmonary medicine are following-appreciate input - Cardiology following-appreciate input - Palliative care did evaluate the patient and she has signed off as patient is not interested Staph aureus pneumonia - Not yet been identified as MRSA versus non-MRSA - Start linezolid 600 twice daily given the fact that he is on dialysis - Day 1 of 7 for antibiotics Troponin elevation - Low suspicion of NSTEMI - Likely related to acute decompensated heart failure in addition to poor renal function - No further ischemic workup for now - Cardiology is following-appreciate input New onset A-fib with RVR - Patient had normal TSH on admission - Echocardiogram as noted above - Continue amiodarone drip for now with plan to transition to oral amiodarone 200 mg daily once extubated - Restart heparin drip and then transition to Eliquis when okay per general surgery - Cardiology following-appreciate input Acute on chronic hypotension - Resolved BRYANNA on CKD stage IIIb - Creatinine at baseline appears to be about 1.5 - Suspect cardiorenal physiology - Patient with significant anasarca and worsening creatinine despite diuresis - Tunneled dialysis catheter placement today and dialysis later today versus tomorrow morning - Continue midodrine 10 mg p.o. 3 times daily -Patient did require temporary Levophed to help blood pressure while intubated on sedation Hyperkalemia -Resolved Thoracic aortic aneurysm - up to 5.3 cm - Blood pressure control - Outpatient follow-up - Patient is overall poor surgical candidate DM-2 - Oral agents on hold - Continue subcu insulin as ordered but monitor closely with worsening renal function - Fasting sugar is 133- Hypertension - Hold all home agents given hypotensive at this time History of VTE - Not on anything chronically - Currently on heparin drip for A-fib Mild chronic anemia - Stable ANDRADE/obesity hypoventilation syndrome - Continue BiPAP once extubated - Continue supplemental oxygen as needed after extubation DVT prophylaxis/GI prophylaxis -Heparin drip on hold for now - SCDs added - Protonix 40 IV twice daily for now for GI prophylaxis CODE STATUS - DNR CCA okay for intubation - Overall prognosis is poor-palliative care did evaluate the patient and he essentially kicked them out of the room Charges/Coding Visit Charges Inpatient E&M: 62798 Subs Hosp L2
--- NOTE | 2025-03-26 07:31 | CON.PCM.CC_ITS ---
Assessment & Plan Assessment/Plan (1) Acute on chronic respiratory failure with hypoxia and hypercapnia: PLAN: Plan RECOMMENDATIONS: 1. Continue assist-control mode of mechanical ventilation. Wean FiO2 and PEEP as tolerated. 2. Atrial fibrillation management per cardiology. 3. Tentative plans to transition to conventional hemodialysis today per nephrology. 4. Continue scheduled midodrine and Levophed, if clinically indicated. 5. Continue current sedation regimen. 6. Continue PPI therapy. 7. Plan to repeat spontaneous awakening and breathing trial again tomorrow morning. IMPRESSIONS: 1. Postoperative respiratory failure/acute on chronic combined respiratory failure Most likely secondary to inadequate recovery from MAC with subsequent hypoventilation and development of hypercapnia, leading to intubation. At this time, given the patient's marginal performance on his breathing trial this morning, we will plan to keep the patient on assist-control mode of mechanical ventilation and proceed with additional volume optimization today via hemodialysis. He will be maintained on his current sedation regimen with a goal to repeat his spontaneous awakening and breathing trial again tomorrow morning. 2. Acute decompensated congestive heart failure/new onset atrial fibrillation Continue volume optimization via hemodialysis. Remainder of management/recommendations per cardiology. The patient did convert to normal sinus rhythm with amiodarone administration. 3. BRYANNA on CKD Most likely cardiorenal in etiology. Nephrology is currently following to assist with hemodialysis needs. Continue scheduled midodrine. 4. History of obstructive sleep apnea/alveolar hypoventilation secondary to obesity Recommend restarting noninvasive positive pressure ventilatory support once successfully extubated. 5. History of diabetes mellitus/history of VTE/hypertension/super morbid obesity Complicates care, management, recovery and prognosis. Continue supportive care as noted above. Hold on initiating tube feeding today. TIME: 37 minutes of critical care time, independent of procedures, was spent addressing the patient's postoperative respiratory failure, acute decompensated heart failure, BRYANNA on CKD, review of all data and collaboration with the care team. HPI Consult Data Date of Consult: 03/26/25 HPI Narrative Reason for Consultation: Postoperative respiratory failure HPI Narrative: The patient is a 69-year-old male, with a history as outlined below, who was initially admitted to the hospital on March 21 with worsening dyspnea. The patient has an extensive medical history including peripheral vascular disease with chronic lower extremity lymphedema, valvular heart disease, history of VTE, diabetes mellitus, nonischemic cardiomyopathy with a reduced ejection fraction, obstructive sleep apnea, alveolar hypoventilation secondary to super morbid obesity and chronic hypoxemic respiratory failure. The patient was ultimately admitted to the hospital with concern for acute decompensated heart failure in the setting of acute on chronic kidney disease. The patient was seen in consultation by both nephrology and cardiology. Surface echocardiogram demonstrated a moderately dilated LV with an ejection fraction of 35%. Ultimately, the patient's hospital course has been complicated by worsening renal insufficiency, which ultimately required the placement of a tunneled dialysis catheter on March 25. The patient also developed atrial fibrillation with RVR, which was medically managed with amiodarone. Following the patient's surgical intervention on March 25, the patient became hypercapnic in the PACU and required intubation. He was therefore admitted to the medical intensive care unit for further management. This morning, the patient's acid-base status has improved with a pH noted to be 7.43 with a pCO2 of 40 and pO2 of 60. His chest x-ray from this morning shows significant improvement in the aeration throughout his left lung field. Unfortunately, the patient did not do significantly well on his spontaneous breathing trial with periodic desaturations into the 70s and 80s. Therefore, the decision was made to maintain the patient on assist-control mode of mechanical ventilation and proceed with further volume optimization via hemodialysis. [facility] Medical History ANDRADE (obstructive sleep apnea) HLD (hyperlipidemia) HTN (hypertension) Non-ischemic cardiomyopathy Morbid obesity with BMI of 50.0-59.9, adult Moderate aortic valve stenosis Controlled type 2 diabetes mellitus with hyperglycemia Dilated cardiomyopathy Walking difficulty due to ankle and foot Wound healing, delayed Vitamin D deficiency Pulmonary embolism Congestive heart failure Aortic valve disease Lymphedema Venous insufficiency of both lower extremities Sleep apnea Super obesity Hyperlipidemia Home Medications ?Medication ?Instructions ?Recorded ?Last Taken ?Type glipizide 5 mg tablet 5 mg PO DAILY diabetes 07/1803/21/25 History aspirin 81 mg capsule 81 mg PO DAILY preventative 03/06/24 03/21/25 History insulin human U-100 NPH-regulr 5 unit subcut BID diabe cecil 03/06/24 03/21/25 History 70-30 mix 100 unit/mL subcutaneous susp (Humulin 70/30 U-100 Insulin) empagliflozin 10 mg tablet 10 mg PO DAILY 30 days #30 tabs 03/09/24 03/21/25 Rx (Jardiance) bumetanide 2 mg tablet 2 mg PO BID water pill 90 da ys 03/20/24 03/21/25 Rx #180 tabs carvedilol 6.25 mg tablet 6.25 mg PO BID 90 days #180 tabs 03/20/24 03/21/25 Rx lisinopril 5 mg tablet 5 mg PO BID 90 days #180 tab s 03/20/24 03/21/25 Rx spironolactone 25 mg tablet 25 mg PO DAILY 90 days #90 tabs 03/20/24 03/21/25 Rx Allergy/AdvReac Type Severity Reaction Status Date / Time No Known Allergies Allergy Verified 03/21/25 16:12 Family History Mother Cancer Glaucoma Brother Aortic aneurysm Father Myocardial infarction Sister Cancer Sister Cardiomyopathy Brother Pulmonary fibrosis Surgical History History of ankle surgery History of foot surgery History of tonsillectomy Social History household members: none Smoking Status: Never smoker alcohol intake: never substance use type: does not use caffeine: Yes Type: carbonated beverages Number of servings: 1 ROS Review of Systems ROS Unobtainable: due to endotracheal tube Physical Exam Const Constitutional Narrative: Intubated, sedated and mechanically ventilated. No ventilator dyssynchrony noted. Super morbidly obese. HEENT normocephalic and head/scalp atraumatic Mouth: endotracheal tube in place and OG tube in place Eyes PERRL, EOMs intact bilaterally and conjunctivae normal Neck supple Neck Narrative: Large neck circumference with redundant soft tissue. General: trachea midline Chest inspection of chest normal Resp Auscultation: diminished lung sounds; Negative for rales, rhonchi or wheezes Cardio regular rate and regular rhythm Cardio Narrative: Currently in normal sinus rhythm on telemetry. GI normal to inspection, nondistended, normoactive bowel sounds Extremity General Extremity: clubbing and edema bilateral lower extremity Skin General Skin Exam: venous stasis and dermatitis Neuro Sensorium / Orientation: sedated on vent Lab / Micro Data 03/26/25 06:40 03/26/25 06:40 Labs: Laboratory Results - last 24 hr 03/25/25 08:40: POC Glucose 151 H 03/25/25 11:07: POC Glucose 175 H 03/25/25 14:30: Potassium 5.2 H, Total Creatine Kinase 66, Triglycerides 81 03/25/25 16:51: POC Glucose 201 H 03/25/25 19:25: WBC 5.9, RBC 3.95 L, Hgb 11.4 L, Hct 37.8 L, MCV 95.7 H, MCH 28.9, MCHC 30.2 L, RDW Std Deviation 52.1 H, RDW Coeff of Paddy 14.7 H, Plt Count 204, MPV 10.9, Immature Gran % (Auto) 0.700, Neut % (Auto) 90.7 H, Lymph % (Auto) 2.4 L, [place] % (Auto) 5.6, Eos % (Auto) 0.3, Baso % (Auto) 0.3, Absolute Neuts (auto) 5.4, Absolute Lymphs (auto) 0.14 L, Nucleated RBC % 0, Sodium 140, Potassium 5.4 H, Chloride 101, Carbon Dioxide 21.9, Anion Gap 18 H, BUN 134 H*, Creatinine 3.64 H, Estim Creat Clear Calc 28.74 L, Est GFR (MDRD) Non-Af 17 L, B UN/Creatinine Ratio 36.8 H, Glucose 188 H, Calcium 8.0, Phosphorus 7.1 H, M ag[place] 2.8 H 03/25/25 23:17: POC Glucose 162 H 03/26/25 01:00: Sodium 140, Potassium 4.9, Chloride 102, Carbon Dioxide 25.5, Anion Gap 13, BUN 112 H*, Creatinine 3.20 H, Estim Creat Clear Calc 32.70 L, Est GFR (MDRD) Non-Af 20 L, BUN/Creatinine Ratio 35.0 H, Glucose 161 H, Calcium 8.2, Phosphorus 5.2 H, Magnesium 2.5 H, Albumin 3.6 03/26/25 05:08: POC Glucose 122 H 03/26/25 06:40: WBC 6.1, RBC 4.04 L, Hgb 11.7 L, Hct 37.5 L, MCV 92.8, MCH 29.0, MCHC 31.2 L, RDW Std Deviation 50.2 H, RDW Coeff of Paddy 14.8 H, Plt Count 214, MPV 11.0, Immature Gran % (Auto) 0.500, Neut % (Auto) 81.7 H, Lymph % (Auto) 6.9 L, [place] % (Auto) 8.9, Eos % (Auto) 1.3, Baso % (Auto) 0.7, Absolute Neuts (auto) 5.0, Absolute Lymphs (auto) 0.42 L, Nucleated RBC % 0, Sodium 140, Potassium 4.7, Chloride 101, Carbon Dioxide 23.6, Anion Gap 15, BUN 95 H, Creatinine 2.59 H, Estim Creat Clear Calc 40.30 L, Est GFR (MDRD) Non-Af 26 L, BUN/Creatinine Ratio 36.8 H, Glucose 139 H, Calcium 8.7, Phosphorus 4.4, Magnesium 2.4 H, Albumin 3.5 Micro: Microbiology 03/22/25 19:54 Sputum, Expectorated/Coughed Gram Stain - Final 03/22/25 19:54 Sputum, Expectorated/Coughed Respiratory Culture - Preliminary Staphylococcus aureus ABG Data ABG results: ABG 03/25/25 03/25/25 16:56 18:02 Specimen Type ART ART Sample Site L Radial L Radial pH 7.02 L* 7.25 L Bicarbonate Actual 29.8 H 26.5 H Total CO2 33 28 Base Excess -1 -1 O2 Saturation 70 L 88 L O2 % 100.0 100.0 ABG pCO2 116.2 H* 60.1 H ABG pO2 57 L 64 L Trsiten Test Positive Positive Respiration Rate 20 O2 Delivery Device Bagging Adult Vent Vent Mode Not entered AC Tidal Volume 450.0 POC PEEP 8 Crit Call To/Read Back Yes Blood Gas Notified Whom floreswaqas Blood Gas Notified Time 16:58:00 Rhythm Strip Rhythm Strip: Sinus Rhythm Rate: 82 Ectopy: None and PVC(s) Imaging Radiology Impression Chest X-Ray 03/25/25 17:00 IMPRESSION: 1. Endotracheal tube tip 3.5 cm above the zachary. 2. Right IJ tunneled dialysis catheter tip at the superior cavoatrial junction. 3. No pneumothorax. Cardiomegaly with persistent fluid overload. Reading Location: [id number] X-Ray 03/25/25 19:44 IMPRESSION: Enteric tube terminates appropriately within the stomach. Reading Location: [facility] X-Ray 03/25/25 19:50 IMPRESSION: Enteric tube has been advanced, distal tip now collimated from view in the left abdomen. Reading Location: [id number] Chest X-Ray 03/26/25 05:40 IMPRESSION: Right internal jugular central catheter is in good position with its tip in the superior vena cava. Endotracheal tube is in good position. Enteric feeding tube is in good position. Mild increase in pulmonary venous congestion. Mild increase in interstitial pulmonary congestion. Unchanged minimal bilateral pleural effusions. Enlarged cardiac silhouette. [facility] Charges/Coding Procedures Hospitalists Procedures: 62390 Critical Care 1st Hr
[2025-03-26] MEDS: Chlorhexidine 15 ML PO ×2 (07:40→22:06)
--- NOTE | 2025-03-26 07:45 | PN.SURG_ITS ---
Subjective Subjective Patient evaluated resting comfortably intubated in bed. He is currently receiving dialysis. He is unable to respond to any questions. Objective Data Objective Data Vital Signs: Vital Signs Temp Pulse Resp BP Pulse Ox O2 Del Method O2 Flow Rate 97.4 F L 59 L 20 H 118/57 L 95 Mechanical Ventilator 10 03/26/25 07:00 03/26/25 07:00 03/26/25 07:00 03/26/25 07:00 03/26/25 07:00 03/26/25 07:00 03/25/25 17:39 FiO2 40 03/26/25 07:00 Oxygen Flow Rate (L/min) 10 Oxygen Delivery Method Mechanical Ventilator Weight: 358 lb 14.601 oz Body Mass Index (BMI) 51.3 Intake & Output: Intake and Output for Last 24 Hours 03/24/25 03/25/25 03/26/25 23:59 23:59 23:59 Intake Total 811.94 / 845.24 1109.50 / 1200.64 468.53 / 468.53 Output Total 1150 / 1150 590 / 735 1410 / 1410 Balance -338.06 / -304.76 519.50 / 465.64 -941.47 / -941.47 Lab / Micro Data 03/26/25 06:40 03/26/25 06:40 Labs: Laboratory Results - last 24 hr 03/25/25 08:40: POC Glucose 151 H 03/25/25 11:07: POC Glucose 175 H 03/25/25 14:30: Potassium 5.2 H, Total Creatine Kinase 66, Triglycerides 81 03/25/25 16:51: POC Glucose 201 H 03/25/25 19:25: WBC 5.9, RBC 3.95 L, Hgb 11.4 L, Hct 37.8 L, MCV 95.7 H, MCH 28.9, MCHC 30.2 L, RDW Std Deviation 52.1 H, RDW Coeff of Paddy 14.7 H, Plt Count 204, MPV 10.9, Immature Gran % (Auto) 0.700, Neut % (Auto) 90.7 H, Lymph % (Auto) 2.4 L, [place] % (Auto) 5.6, Eos % (Auto) 0.3, Baso % (Auto) 0.3, Absolute Neuts (auto) 5.4, Absolute Lymphs (auto) 0.14 L, Nucleated RBC % 0, Sodium 140, Potassium 5.4 H, Chloride 101, Carbon Dioxide 21.9, Anion Gap 18 H, BUN 134 H*, Creatinine 3.64 H, Estim Creat Clear Calc 28.74 L, Est GFR (MDRD) Non-Af 17 L, B UN/Creatinine Ratio 36.8 H, Glucose 188 H, Calcium 8.0, Phosphorus 7.1 H, M agnesium 2.8 H 03/25/25 23:17: POC Glucose 162 H 03/26/25 01:00: Sodium 140, Potassium 4.9, Chloride 102, Carbon Dioxide 25.5, Anion Gap 13, BUN 112 H*, Creatinine 3.20 H, Estim Creat Clear Calc 32.70 L, Est GFR (MDRD) Non-Af 20 L, BUN/Creatinine Ratio 35.0 H, Glucose 161 H, Calcium 8.2, Phosphorus 5.2 H, Magnesium 2.5 H, Albumin 3.6 03/26/25 05:08: POC Glucose 122 H 03/26/25 06:40: WBC 6.1, RBC 4.04 L, Hgb 11.7 L, Hct 37.5 L, MCV 92.8, MCH 29.0, MCHC 31.2 L, RDW Std Deviation 50.2 H, RDW Coeff of Paddy 14.8 H, Plt Count 214, MPV 11.0, Immature Gran % (Auto) 0.500, Neut % (Auto) 81.7 H, Lymph % (Auto) 6.9 L, [place] % (Auto) 8.9, Eos % (Auto) 1.3, Baso % (Auto) 0.7, Absolute Neuts (auto) 5.0, Absolute Lymphs (auto) 0.42 L, Nucleated RBC % 0, Sodium 140, Potassium 4.7, Chloride 101, Carbon Dioxide 23.6, Anion Gap 15, BUN 95 H, Creatinine 2.59 H, Estim Creat Clear Calc 40.30 L, Est GFR (MDRD) Non-Af 26 L, BUN/Creatinine Ratio 36.8 H, Glucose 139 H, Calcium 8.7, Phosphorus 4.4, Magnesium 2.4 H, Albumin 3.5 Micro: Microbiology 03/22/25 19:54 Sputum, Expectorated/Coughed Gram Stain - Final 03/22/25 19:54 Sputum, Expectorated/Coughed Respiratory Culture - Preliminary Staphylococcus aureus 03/22/25 11:00 Urine, Clean Catch Legionella Antigen - Final 03/22/25 11:00 Urine, Clean Catch Streptococcus pneumoniae Antigen (M - Final 03/21/25 22:30 Mucosa - Nose Respiratory Panel (PCR) - Final ABG Data ABG results: ABG 03/25/25 03/25/25 16:56 18:02 Specimen Type ART ART Sample Site L Radial L Radial pH 7.02 L* 7.25 L Bicarbonate Actual 29.8 H 26.5 H Total CO2 33 28 Base Excess -1 -1 O2 Saturation 70 L 88 L O2 % 100.0 100.0 ABG pCO2 116.2 H* 60.1 H ABG pO2 57 L 64 L Tristen Test Positive Positive Respiration Rate 20 O2 Delivery Device Bagging Adult Vent Vent Mode Not entered AC Tidal Volume 450.0 POC PEEP 8 Crit Call To/Read Back Yes Blood Gas Notified Whom weeman Blood Gas Notified Time 16:58:00 Radiography Diagnostic Testing: Radiology Impression Chest X-Ray 03/25/25 17:00 IMPRESSION: 1. Endotracheal tube tip 3.5 cm above the zachary. 2. Right IJ tunneled dialysis catheter tip at the superior cavoatrial junction. 3. No pneumothorax. Cardiomegaly with persistent fluid overload. Reading Location: [facility]UB X-Ray 03/25/25 19:44 IMPRESSION: Enteric tube terminates appropriately within the stomach. Reading Location: [facility] X-Ray 03/25/25 19:50 IMPRESSION: Enteric tube has been advanced, distal tip now collimated from view in the left abdomen. Reading Location: [facility] Chest X-Ray 03/26/25 05:40 IMPRESSION: Right internal jugular central catheter is in good position with its tip in the superior vena cava. Endotracheal tube is in good position. Enteric feeding tube is in good position. Mild increase in pulmonary venous congestion. Mild increase in interstitial pulmonary congestion. Unchanged minimal bilateral pleural effusions. Enlarged cardiac silhouette. Reading [facility] Rhythm Strip Rhythm Strip: Sinus Rhythm Rate: 82 Ectopy: None and PVC(s) Physical Exam Chest Chest Narrative: Right chest- tunneled dialysis catheter intact. No oozing noted. Currently hooked up to dialysis. Extremity Extremity Narrative: Right groin- catheter intact. No hematoma or oozing noted. Assessment & Plan Assessment/Plan (1) Acute kidney injury: PLAN: I am following this patient in conjunction with Dr. Martinez in Dr. Larsen's absence. He will independently evaluate this patient. Labs reviewed Dialysis catheter appears to be functioning well May restart Heparin this afternoon Plan is to possibly transition to conventional hemodialysis tomorrow We will follow as needed at this time Please contact us if our service is needed again. Thank you Charges/Coding Visit Charges Inpatient E&M: 25163 Subs Hosp L1 (no charge; post-op)
[2025-03-26 08:14] LABS: Allen Test Positive; Base Excess 3 mmol/L (-2 to +2); FI02 30.0; PEEP 8; PO2 60 mmHG (75-100); RR 20; SITE L Radial; SO2 92 % (95-99)
[2025-03-26] MEDS: Linezolid 600 MG 600 MG/300 ML BAG 200 MG IV ×2 (08:15→22:10)
--- NOTE | 2025-03-26 08:22 | CPS ---
pt failed trial, apneic episodes and o2 desaturation
--- NOTE | 2025-03-26 08:24 | PN.CARD_ITS ---
Subjective Subjective Patient seen and evaluated. Appears to be doing quite well. Converted back to sinus rhythm after amiodarone bolus yesterday. Objective Data Vital Signs: Vital Signs Temp Pulse Resp BP Pulse Ox O2 Del Method O2 Flow Rate 97.7 F L 66 20 H 114/57 L 92 Mechanical Ventilator 10 03/26/25 08:00 03/26/25 08:00 03/26/25 08:00 03/26/25 08:00 03/26/25 08:00 03/26/25 08:00 03/25/25 17:39 FiO2 40 03/26/25 08:00 Oxygen Flow Rate (L/min) 10 Oxygen Delivery Method Mechanical Ventilator Weight: 358 lb 14.601 oz Body Mass Index (BMI) 51.3 Intake & Output: Intake and Output for Last 24 Hours 03/24/25 03/25/25 03/26/25 23:59 23:59 23:59 Intake Total 811.94 / 845.24 1109.50 / 1200.64 492.63 / 492.63 Output Total 1150 / 1150 590 / 735 1410 / 1410 Balance -338.06 / -304.76 519.50 / 465.64 -917.37 / -917.37 Lab / Micro Data 03/26/25 06:40 03/26/25 06:40 Labs: Laboratory Results - last 24 hr 03/25/25 08:40: POC Glucose 151 H 03/25/25 11:07: POC Glucose 175 H 03/25/25 14:30: Potassium 5.2 H, Total Creatine Kinase 66, Triglycerides 81 03/25/25 16:51: POC Glucose 201 H 03/25/25 19:25: WBC 5.9, RBC 3.95 L, Hgb 11.4 L, Hct 37.8 L, MCV 95.7 H, MCH 28.9, MCHC 30.2 L, RDW Std Deviation 52.1 H, RDW Coeff of Paddy 14.7 H, Plt Count 204, MPV 10.9, Immature Gran % (Auto) 0.700, Neut % (Auto) 90.7 H, Lymph % (Auto) 2.4 L, [place] % (Auto) 5.6, Eos % (Auto) 0.3, Baso % (Auto) 0.3, Absolute Neuts (auto) 5.4, Absolute Lymphs (auto) 0.14 L, Nucleated RBC % 0, Sodium 140, Potassium 5.4 H, Chloride 101, Carbon Dioxide 21.9, Anion Gap 18 H, BUN 134 H*, Creatinine 3.64 H, Estim Creat Clear Calc 28.74 L, Est GFR (MDRD) Non-Af 17 L, B UN/Creatinine Ratio 36.8 H, Glucose 188 H, Calcium 8.0, Phosphorus 7.1 H, M agnesium 2.8 H 03/25/25 23:17: POC Glucose 162 H 03/26/25 01:00: Sodium 140, Potassium 4.9, Chloride 102, Carbon Dioxide 25.5, Anion Gap 13, BUN 112 H*, Creatinine 3.20 H, Estim Creat Clear Calc 32.70 L, Est GFR (MDRD) Non-Af 20 L, BUN/Creatinine Ratio 35.0 H, Glucose 161 H, Calcium 8.2, Phosphorus 5.2 H, Magnesium 2.5 H, Albumin 3.6 03/26/25 05:08: POC Glucose 122 H 03/26/25 06:40: WBC 6.1, RBC 4.04 L, Hgb 11.7 L, Hct 37.5 L, MCV 92.8, MCH 29.0, MCHC 31.2 L, RDW Std Deviation 50.2 H, RDW Coeff of Paddy 14.8 H, Plt Count 214, MPV 11.0, Immature Gran % (Auto) 0.500, Neut % (Auto) 81.7 H, Lymph % (Auto) 6.9 L, [place] % (Auto) 8.9, Eos % (Auto) 1.3, Baso % (Auto) 0.7, Absolute Neuts (auto) 5.0, Absolute Lymphs (auto) 0.42 L, Nucleated RBC % 0, Sodium 140, Potassium 4.7, Chloride 101, Carbon Dioxide 23.6, Anion Gap 15, BUN 95 H, Creatinine 2.59 H, Estim Creat Clear Calc 40.30 L, Est GFR (MDRD) Non-Af 26 L, BUN/Creatinine Ratio 36.8 H, Glucose 139 H, Calcium 8.7, Phosphorus 4.4, Magnesium 2.4 H, Albumin 3.5 Micro: Microbiology 03/22/25 19:54 Sputum, Expectorated/Coughed Gram Stain - Final 03/22/25 19:54 Sputum, Expectorated/Coughed Respiratory Culture - Final Staphylococcus aureus ABG Data ABG results: ABG 03/25/25 03/25/25 03/26/25 16:56 18:02 08:10 Specimen Type ART ART ART Sample Site L Radial L Radial L Radial pH 7.02 L* 7.25 L 7.43 Bicarbonate Actual 29.8 H 26.5 H 27.0 H Total CO2 33 28 28 Base Excess -1 -1 3 H O2 Saturation 70 L 88 L 92 L O2 % 100.0 100.0 30.0 ABG pCO2 116.2 H* 60.1 H 40.4 ABG pO2 57 L 64 L 60 L Tristen Test Positive Positive Positive Respiration Rate 20 20 O2 Delivery Device Bagging Adult Vent Adult Vent Vent Mode Not entered AC AC Tidal Volume 450.0 450.0 POC PEEP 8 8 Crit Call To/Read Back Yes Blood Gas Notified Whom floreseman Blood Gas Notified Time 16:58:00 Rhythm Strip Rhythm Strip: Sinus Rhythm Rate: 82 Ectopy: None and PVC(s) Cardiology Labs/Tests 03/25/25 14:30: Potassium 5.2 H, Triglycerides 81 03/25/25 16:56: pH 7.02 L*, Bicarbonate Actual 29.8 H, Base Excess -1, O2 Saturation 70 L, ABG pCO2 116.2 H*, ABG pO2 57 L, Tristen Test Positive 03/25/25 18:02: pH 7.25 L, Bicarbonate Actual 26.5 H, Base Excess -1, O2 Saturation 88 L, ABG pCO2 60.1 H, ABG pO2 64 L, Tristen Test Positive 03/25/25 19:25: WBC 5.9, RBC 3.95 L, Hgb 11.4 L, Hct 37.8 L, MCV 95.7 H, MCH 28.9, MCHC 30.2 L, Plt Count 204, MPV 10.9, Immature Gran % (Auto) 0.700, Neut % (Auto) 90.7 H, Lymph % (Auto) 2.4 L, [place] % (Auto) 5.6, Eos % (Auto) 0.3, Baso % (Auto) 0.3, Absolute Neuts (auto) 5.4, Nucleated RBC % 0, Sodium 140, Potassium 5.4 H, Chloride 101, Carbon Dioxide 21.9, Anion Gap 18 H, BUN 134 H*, Creatinine 3.64 H, Est GFR (MDRD) Non-Af 17 L, BUN/Creatinine Ratio 36.8 H, Glucose 188 H, Calcium 8.0, Phosphorus 7.1 H, Magnesium 2.8 H 03/26/25 01:00: Sodium 140, Potassium 4.9, Chloride 102, Carbon Dioxide 25.5, Anion Gap 13, BUN 112 H*, Creatinine 3.20 H, Est GFR (MDRD) Non-Af 20 L, B UN/Creatinine Ratio 35.0 H, Glucose 161 H, Calcium 8.2, Phosphorus 5.2 H, M agnesium 2.5 H 03/26/25 06:40: WBC 6.1, RBC 4.04 L, Hgb 11.7 L, Hct 37.5 L, MCV 92.8, MCH 29.0, MCHC 31.2 L, Plt Count 214, MPV 11.0, Immature Gran % (Auto) 0.500, Neut % (Auto) 81.7 H, Lymph % (Auto) 6.9 L, [place] % (Auto) 8.9, Eos % (Auto) 1.3, Baso % (Auto) 0.7, Absolute Neuts (auto) 5.0, Nucleated RBC % 0, Sodium 140, Potassium 4.7, Chloride 101, Carbon Dioxide 23.6, Anion Gap 15, BUN 95 H, Creatinine 2.59 H, Est GFR (MDRD) Non-Af 26 L, BUN/Creatinine Ratio 36.8 H, Glucose 139 H, Calcium 8.7, Phosphorus 4.4, Magnesium 2.4 H 03/26/25 08:10: pH 7.43, Bicarbonate Actual 27.0 H, Base Excess 3 H, O2 Saturation 92 L, ABG pCO2 40.4, ABG pO2 60 L, Tristen Test Positive Rhythm: EKG: ECHO: Stress Test: Cardiac Cath: PCI: CT Surgery: Holter monitor: EPS: PPM: CXR: Chest CT Scan: Radiography Diagnostic Testing: Radiology Impression Chest X-Ray 03/25/25 17:00 IMPRESSION: 1. Endotracheal tube tip 3.5 cm above the zachary. 2. Right IJ tunneled dialysis catheter tip at the superior cavoatrial junction. 3. No pneumothorax. Cardiomegaly with persistent fluid overload. Reading Location: [facility] X-Ray 03/25/25 19:44 IMPRESSION: Enteric tube terminates appropriately within the stomach. Reading Location: [facility] X-Ray 03/25/25 19:50 IMPRESSION: Enteric tube has been advanced, distal tip now collimated from view in the left abdomen. Reading Location: [facility] Chest X-Ray 03/26/25 05:40 IMPRESSION: Right internal jugular central catheter is in good position with its tip in the superior vena cava. Endotracheal tube is in good position. Enteric feeding tube is in good position. Mild increase in pulmonary venous congestion. Mild increase in interstitial pulmonary congestion. Unchanged minimal bilateral pleural effusions. Enlarged cardiac silhouette. Reading Location: [place] [address] Physical Exam Const no apparent distress Constitutional Narrative: Intubated General Appearance: cooperative HEENT hearing grossly normal bilaterally Head and Scalp: atraumatic Eyes EOMs intact bilaterally Neck General: normal visual inspection Chest inspection of chest normal and palpation of chest normal Resp normal respiratory effort Auscultation: clear to auscultation bilaterally Cardio regular rate, regular rhythm, S1 normal heart sound and S2 normal heart sound Jugular Venous Distention: JVD GI normal to inspection, nondistended, normoactive bowel sounds Extremity normal capillary refill Extremity Narrative: Bilateral pedal edema significant and wrapped. General Extremity: edema bilateral Peripheral Pulses: Yes pulses 2+ throughout and femoral pulses present Skin no rashes or lesions noted Neuro oriented x3 and CN's II-XII intact bilaterally Psych Appearance: grossly normal and appropriate Assessment & Plan Assessment/Plan (1) CHF (congestive heart failure): QUALIFIERS: Heart failure type: combined systolic and diastolic H eart failure chronicity: acute on chronic Qualified Code(s): I50.43 - Acute on chronic combined systolic (congestive) and diastolic (congestive) heart failure PLAN: Patient appears to have decompensated congestive heart failure and is currently on guideline directed medical therapy as allowed by his kidney function. My recommendation at this time were to continue the same without making any major changes. I do not foresee any invasive cardiac workup at this time especially due to his renal function. Will continue to wait for guidance from the sagger maker. (2) HTN (hypertension): QUALIFIERS: Hypertension type: primary hypertension Qualified Code(s): I10 - Essential (primary) hypertension PLAN: He does have a history of hypertension. His blood pressure appears to be under good control at this time I would not make any changes. (3) Atrial fibrillation: PLAN: He recently went into atrial fibrillation and yesterday had difficult to control heart rate. He was treated with intravenous amiodarone and successfully converted to sinus rhythm. Plan will be to convert him to oral amiodarone 200 mg a day after he has been extubated. Will likely need Eliquis at least 4 months.
[2025-03-26] MEDS: 0.9% Normal Saline 1,000 ML IV.SOLN. 1000 ML OPERA.SITE (08:44)
[2025-03-26] MEDS: PureFlow B 2K Dialysis Soln 1 BAG 6 BAG PF (08:44)
[2025-03-26 10:08] LABS: Hepatitis B Surface Antigen Nonreactive (Nonreactive)
[2025-03-26] MEDS: fentaNYL drip 100 ML 10 MCG CONT INF ×2 (10:12→21:17)
--- NOTE | 2025-03-26 11:13 | NUR.TO.PHY ---
Discussed case with Dr. Gauthier during rounds. New verbal order received to discontinue dialysis at 1130 from previous order Continue ultrafiltration only after 3hrs, with goal to remove 5-6L total, including current fluid removal.
[2025-03-26] MEDS: Pantoprazole Sodium 40 MG in 0.9% Normal Saline (100mL MB+) 100 ML 300 MG IV ×2 (12:08→21:09)
--- NOTE | 2025-03-26 12:27 | PCM.PN.REN ---
Subjective Subjective Events noted overnight. Intubated. Chest x-ray showed significant pulmonary edema. Started on CRRT overnight. UF 100 cc/h negative. Tolerated okay. This morning he is on low-dose Levophed 5 mcg. Objective Data Objective Data Vital Signs: Vital Signs Temp Pulse Resp BP Pulse Ox O2 Del Method O2 Flow Rate 97.9 F 65 20 H 118/59 L 95 Mechanical Ventilator 10 03/26/25 12:00 03/26/25 12:00 03/26/25 12:00 03/26/25 12:00 03/26/25 12:00 03/26/25 12:00 03/25/25 17:39 FiO2 30 03/26/25 12:00 Oxygen Flow Rate (L/min) 10 Oxygen Delivery Method Mechanical Ventilator Weight: 162.8 kg Body Mass Index (BMI) 51.3 Intake & Output: Intake and Output for Last 24 Hours 03/24/25 03/25/25 03/26/25 23:59 23:59 23:59 Intake Total 811.94 / 845.24 1109.50 / 1200.64 1123.33 / 1123.33 Output Total 1150 / 1150 590 / 735 1410 / 1410 Balance -338.06 / -304.76 519.50 / 465.64 -286.67 / -286.67 Lab / Micro Data 03/26/25 06:40 03/26/25 06:40 Labs: Laboratory Results - last 24 hr 03/25/25 11:07: POC Glucose 175 H 03/25/25 14:30: Potassium 5.2 H, Total Creatine Kinase 66, Triglycerides 81 03/25/25 16:51: POC Glucose 201 H 03/25/25 19:25: WBC 5.9, RBC 3.95 L, Hgb 11.4 L, Hct 37.8 L, MCV 95.7 H, MCH 28.9, MCHC 30.2 L, RDW Std Deviation 52.1 H, RDW Coeff of Paddy 14.7 H, Plt Count 204, MPV 10.9, Immature Gran % (Auto) 0.700, Neut % (Auto) 90.7 H, Lymph % (Auto) 2.4 L, Vance % (Auto) 5.6, Eos % (Auto) 0.3, Baso % (Auto) 0.3, Absolute Neuts (auto) 5.4, Absolute Lymphs (auto) 0.14 L, Nucleated RBC % 0, Sodium 140, Potassium 5.4 H, Chloride 101, Carbon Dioxide 21.9, Anion Gap 18 H, BUN 134 H*, Creatinine 3.64 H, Estim Creat Clear Calc 28.74 L, Est GFR (MDRD) Non-Af 17 L, BUN/Creatinine Ratio 36.8 H, Glucose 188 H, Calcium 8.0, Phosphorus 7.1 H, Magnesium 2.8 H 03/25/25 23:17: POC Glucose 162 H 03/26/25 01:00: Sodium 140, Potassium 4.9, Chloride 102, Carbon Dioxide 25.5, Anion Gap 13, BUN 112 H*, Creatinine 3.20 H, Estim Creat Clear Calc 32.70 L, Est GFR (MDRD) Non-Af 20 L, BUN/Creatinine Ratio 35.0 H, Glucose 161 H, Calcium 8.2, Phosphorus 5.2 H, Magnesium 2.5 H, Albumin 3.6 03/26/25 05:08: POC Glucose 122 H 03/26/25 06:40: WBC 6.1, RBC 4.04 L, Hgb 11.7 L, Hct 37.5 L, MCV 92.8, MCH 29.0, MCHC 31.2 L, RDW Std Deviation 50.2 H, RDW Coeff of Paddy 14.8 H, Plt Count 214, MPV 11.0, Immature Gran % (Auto) 0.500, Neut % (Auto) 81.7 H, Lymph % (Auto) 6.9 L, Vance % (Auto) 8.9, Eos % (Auto) 1.3, Baso % (Auto) 0.7, Absolute Neuts (auto) 5.0, Absolute Lymphs (auto) 0.42 L, Nucleated RBC % 0, Sodium 140, Potassium 4.7, Chloride 101, Carbon Dioxide 23.6, Anion Gap 15, BUN 95 H, Creatinine 2.59 H, Estim Creat Clear Calc 40.30 L, Est GFR (MDRD) Non-Af 26 L, BUN/Creatinine Ratio 36.8 H, Glucose 139 H, Calcium 8.7, Phosphorus 4.4, Magnesium 2.4 H, Albumin 3.5 03/26/25 09:05: Hep Bs Antigen Nonreactive 03/26/25 12:05: POC Glucose 124 H Micro: Microbiology 03/25/25 20:05 Sputum, Induced/Lukens Gram Stain - Final 03/22/25 19:54 Sputum, Expectorated/Coughed Gram Stain - Final 03/22/25 19:54 Sputum, Expectorated/Coughed Respiratory Culture - Final Staphylococcus aureus 03/22/25 11:00 Urine, Clean Catch Legionella Antigen - Final 03/22/25 11:00 Urine, Clean Catch Streptococcus pneumoniae Antigen (M - Final 03/21/25 22:30 Mucosa - Nose Respiratory Panel (PCR) - Final ABG Data ABG results: ABG 03/25/25 03/25/25 03/26/25 16:56 18:02 08:10 Specimen Type ART ART ART Sample Site L Radial L Radial L Radial pH 7.02 L* 7.25 L 7.43 Bicarbonate Actual 29.8 H 26.5 H 27.0 H Total CO2 33 28 28 Base Excess -1 -1 3 H O2 Saturation 70 L 88 L 92 L O2 % 100.0 100.0 30.0 ABG pCO2 116.2 H* 60.1 H 40.4 ABG pO2 57 L 64 L 60 L Tristen Test Positive Positive Positive Respiration Rate 20 20 O2 Delivery Device Bagging Adult Vent Adult Vent Vent Mode Not entered [facility] Tidal Volume 450.0 450.0 POC PEEP 8 8 Crit Call To/Read Back Yes Blood Gas Notified Whom weeman Blood Gas Notified Time 16:58:00 Radiography Diagnostic Testing: Radiology Impression Chest X-Ray 03/25/25 17:00 IMPRESSION: 1. Endotracheal tube tip 3.5 cm above the zachary. 2. Right IJ tunneled dialysis catheter tip at the superior cavoatrial junction. 3. No pneumothorax. Cardiomegaly with persistent fluid overload. Reading Location: [facility] X-Ray 03/25/25 19:44 IMPRESSION: Enteric tube terminates appropriately within the stomach. Reading Location: [id number] X-Ray 03/25/25 19:50 IMPRESSION: Enteric tube has been advanced, distal tip now collimated from view in the left abdomen. Reading Location: [id number] Chest X-Ray 03/26/25 05:40 IMPRESSION: Right internal jugular central catheter is in good position with its tip in the superior vena cava. Endotracheal tube is in good position. Enteric feeding tube is in good position. Mild increase in pulmonary venous congestion. Mild increase in interstitial pulmonary congestion. Unchanged minimal bilateral pleural effusions. Enlarged cardiac silhouette. [id number] R[facility] Strip Rhythm Strip: Sinus Rhythm Rate: 82 Ectopy: None and PVC(s) Physical Exam Narrative no JVD s1s2 no murmurs Diminished breath sounds posteriorly abdomen soft +++ edema bilateral legs and thighs Assessment & Plan Assessment/Plan (1) Acute kidney injury: PLAN: Baseline creatinine prior to this admission appears to be around 1.5. Currently creatinine is 2.2, BUN is disproportionately high, likely related to cardiorenal syndrome physiology. Urine analysis shows microscopic hematuria and proteinuria. He has never seen blood in his urine subjectively. Will try to get old records from his locomotive mechanic apprentice in [place] about this. Appears volume overloaded. Weight gain is unclear. Continue IV Lasix for now. 03/23/2025. Moderate response to IV Lasix. BUN is higher, creatinine higher. Breathing is still not so great. Lower extremity edema about the same. We discussed about worsening renal failure in the setting of congestive heart failure. We discussed about the potential for dialysis. It seems he had renal failure in 2022 under similar circumstances. Was on dialysis for about 2 weeks and recovered. He is familiar with the process. Continue IV Lasix for now, if renal function continues to worsen, will consider short-term dialysis. All questions answered. 03/24/2025; hypervolemic BRYANNA superimposed on CKD stage III. Patient remains on Lasix drip. Urine output documented around 600 mL yesterday. Remains on O2 3 to 4 L nasal cannula. Weight up ~1kg today, up to 161 kg. Creatinine is worsening, 3.22 today. BUN worsening up to 124 today. Reviewed with patient that he is likely heading towards needing renal placement therapy. Patient had been on hemodialysis at [facility] and also outpatient kidney center in [place] about 2 years ago therefore familiar with hemodialysis. Patient states wants to talk with his but if dialysis is necessary/recommended he will be in agreement. There is no urgent need for hemodialysis today, potassium and bicarb acceptable. Reviewed nephrology plan with patient today, questions answered. Will review nephrology plan with Dr. Maya. Labs ordered for morning. Recommend strict urine output measurement. Assessment and plan reviewed with Dr. Gauthier. 03/25/2025; kidney function worsening, significantly fluid overloaded, creatinine 3.95, BUN 128. Potassium 5.4 today, received dose of Kayexalate. Patient is off Lasix drip due to hypotension, went into A-fib and on IV amiodarone and heparin. Urine output around 1.1 L yesterday. On oral midodrine. Plan is for patient to have tunneled hemodialysis catheter placed today. Depending on timing we will plan for dialysis afterwards. Patient will dialyze on 2K bath and attempt fluid removal as patient/blood pressure tolerates. Case management consulted for dialysis arrangements/discharge planning to [facility], Dx: BRYANNA. We will continue to monitor for renal recovery. Assessment and plan reviewed with Dr. Gauthier. 03/26/2025. Events noted. Had respiratory failure after line placement. Intubated. Chest x-ray showed significant pulmonary edema. Was started on CRRT, tolerated fluid removal. This morning switched over to hemodialysis mode. Fluid removal 4 to 5 L as tolerated. Minimal oxygen requirements, FiO2 30%, PEEP of 8. Peripheral edema present. Discussed with ICU attending.
[2025-03-26] MEDS: Ceftriaxone 2 GM in 0.9% Normal Saline (50mL MB+) 50 ML IV (12:35)
[2025-03-26 13:37] LABS: Hemoglobin 12.9 g/dL (13.0-16.5)
--- NOTE | 2025-03-26 13:43 | CASEMGMT ---
DENISE CALLOWAY NOTE: Hep B antigen, tunnelled cath insertion report & CXR confirmation, and 1st HD treatment order and treatment uploaded to [facility] via portal. Bronson DIAZ RN CM
[2025-03-26] MEDS: Heparin Injection (Vial) 5,000 UNIT/ML VIAL 5000 UNIT SC ×2 (13:54→22:14)
[2025-03-27] VITALS (48 sets, daily range): BP systolic 93–140; BP diastolic 50–79; PULSE 64–113; RESP 14–32; TEMP 36.9–38.4; O2SAT 92–100; BMI 50.0; BMI 48.9
[2025-03-27] MEDS: Propofol 10MG/Ml 1,000 MG/100 ML Bottle 9.8 MG CONT INF (02:14)
[2025-03-27] MEDS: CHLORHEXIDINE GLUC 2% CLOTH 1 EACH TOWELETTE TOPICAL (02:14)
[2025-03-27 03:29] LABS: Hematocrit 36.6 % (40-54); Hemoglobin 11.4 g/dL (13.0-16.5); Immature Granulocytes Count 0.050 X10^3/uL (0.0-0.0); Mean Corp Hgb Conc 31.1 g/dL (32-36); Mean Corpuscular Volume 91.5 fL (80-94); Mean Platelet Vol. 10.5 fl (6.2-12.0); NRBC Flagged by Analyzer 0 % (0-5); POSITIVE DIFFERENTIAL YES; Platelet Count 169 K/mm3 (150-450); RBC Distribution Width CV 14.9 % (11.6-14.6); RBC Distribution Width SD 50.1 fl (35.1-43.9); Red Blood Count 4.00 M/mm3 (4.6-6.2); White Blood Count 5.6 K/mm3 (4.4-11.0)
[2025-03-27 03:56] LABS: Anion Gap 13 (5-15); BUN 80 mg/dL (4-19); BUN/Creat Ratio 25.1 RATIO (10-20); Calcium,Total 8.7 mg/dL (7.6-11.0); Carbon Dioxide 24.0 mmol/L (21.0-32.0); Chloride 99 mmol/L (98-108); Estimated Creatinine Clearance 32.01 ml/min (50-250); Glucose 147 mg/dL (70-99); Potassium 4.4 mmol/L (3.3-5.1)
[2025-03-27] MEDS: Heparin Injection (Vial) 5,000 UNIT/ML VIAL 5000 UNIT SC ×3 (05:01→21:58)
[2025-03-27] MEDS: 0.9% Saline Lock 10 ML Syringe IV ×6 (05:01→21:59)
[2025-03-27] MEDS: TITRATION PARAMETER CHANGE 1 EACH IV (05:14)
[2025-03-27] MEDS: Amiodarone 360 MG in Dextrose 5% Viaflo Bag 192.8 ML 16.7 MG CONT INF (06:18)
--- NOTE | 2025-03-27 07:11 | PCM.PN.HOSP ---
Reason for Visit Chief Complaint: Dyspnea, worse with exertion. Subjective Subjective No issues overnight. Patient tolerated intermittent dialysis well. 6 L off total between CVVHD and intermittent HD. Plan is for extubation later today. Objective Data Objective Data Vital Signs: Vital Signs Temp Pulse Resp BP Pulse Ox O2 Del Method O2 Flow Rate 100.2 F H 68 20 H 102/58 L 95 Mechanical Ventilator 10 03/27/25 07:00 03/27/25 07:00 03/27/25 07:00 03/27/25 07:00 03/27/25 07:00 03/27/25 07:00 03/25/25 17:39 FiO2 30 03/27/25 07:00 Oxygen Flow Rate (L/min) 10 Oxygen Delivery Method Mechanical Ventilator Weight: 158.4 kg Body Mass Index (BMI) 50.0 Intake & Output: Intake and Output for Last 24 Hours 03/25/25 03/26/25 03/27/25 23:59 23:59 23:59 Intake Total 1109.50 / 1200.64 2568.49 / 2681.70 361.32 / 361.32 Output Total 590 / 735 7732 / 7782 75 / 75 Balance 519.50 / 465.64 -5163.51 / -5100.30 286.32 / 286.32 Lab / Micro Data 03/27/25 03:20 03/27/25 03:20 Labs: Laboratory Results - last 24 hr 03/26/25 06:40: Sodium 140, Potassium 4.7, Chloride 101, Carbon Dioxide 23.6, Anion Gap 15, BUN 95 H, Creatinine 2.59 H, Estim Creat Clear Calc 40.30 L, Est GFR (MDRD) Non-Af 26 L, BUN/Creatinine Ratio 36.8 H, Glucose 139 H, Calcium 8.7, Phosphorus 4.4, Magnesium 2.4 H, Albumin 3.5 03/26/25 09:05: Hep Bs Antigen Nonreactive 03/26/25 12:05: POC Glucose 124 H 03/26/25 13:29: Hgb 12.9 L 03/26/25 17:48: POC Glucose 134 H 03/26/25 21:05: POC Glucose 120 H 03/26/25 23:54: POC Glucose 166 H 03/27/25 03:20: WBC 5.6, RBC 4.00 L, Hgb 11.4 L, Hct 36.6 L, MCV 91.5, MCH 28.5, MCHC 31.1 L, RDW Std Deviation 50.1 H, RDW Coeff of Paddy 14.9 H, Plt Count 169, MPV 10.5, Immature Gran % (Auto) 0.900, Neut % (Auto) 80.3 H, Lymph % (Auto) 4.6 L, [place] % (Auto) 10.3 H, Eos % (Auto) 2.8, Baso % (Auto) 1.1 H, Absolute Neuts (auto) 4.5, Absolute Lymphs (auto) 0.26 L, Nucleated RBC % 0, Sodium 136, Potassium 4.4, Chloride 99, Carbon Dioxide 24.0, Anion Gap 13, BUN 80 H, Creatinine 3.19 H, Estim Creat Clear Calc 32.01 L, Est GFR (MDRD) Non-Af 20 L, BUN/Creatinine Ratio 25.1 H, Glucose 147 H, Calcium 8.7, Phosphorus 4.7 H 03/27/25 04:59: POC Glucose 134 H Micro: Microbiology 03/25/25 20:05 Sputum, Induced/Lukens Gram Stain - Final 03/22/25 19:54 Sputum, Expectorated/Coughed Gram Stain - Final 03/22/25 19:54 Sputum, Expectorated/Coughed Respiratory Culture - Final Staphylococcus aureus 03/22/25 11:00 Urine, Clean Catch Legionella Antigen - Final 03/22/25 11:00 Urine, Clean Catch Streptococcus pneumoniae Antigen (M - Final 03/21/25 22:30 Mucosa - Nose Respiratory Panel (PCR) - Final ABG Data ABG results: ABG 03/26/25 08:10 Specimen Type ART Sample Site L Radial pH 7.43 Bicarbonate Actual 27.0 H Total CO2 28 Base Excess 3 H O2 Saturation 92 L O2 % 30.0 ABG pCO2 40.4 ABG pO2 60 L Tristen Test Positive Respiration Rate 20 O2 Delivery Device Adult Vent Vent Mode AC Tidal Volume 450.0 POC PEEP 8 Rhythm Strip Rhythm Strip: Sinus Rhythm Rate: 82 Ectopy: None and PVC(s) Physical Exam Const no apparent distress and well nourished; Negative for average body habitus or healthy appearing Constitutional Narrative: Morbidly obese elderly, white male, unhealthy appearing, intubated and awake on ventilator, follows commands, appears comfortable HEENT head/scalp atraumatic and moist oral mucous membranes HEENT Narrative: ET tube and OG in place Eyes Eyes Narrative: No scleral icterus Neck supple Neck Narrative: Right tunneled dialysis catheter in place Resp normal respiratory effort, no retractions, no use of accessory muscles and clear to auscultation bilaterally Resp Narrative: ET tube in place, improved air movement bilaterally, diminished still slightly more on the left than the right, no adventitious sounds noted, exam is limited due to body habitus and positioning Auscultation: Negative for crackles, rhonchi or wheezes Cardio regular rate, regular rhythm, S1 normal heart sound, S2 normal heart sound, no murmurs, no rub, no gallops and no clicks GI normal to inspection, nondistended, normoactive bowel sounds, soft to palpation and non-tender GI Narrative: Large protuberant abdomen Extremity Extremity Narrative: Severe bilateral lower extremity edema 3-4+ bilaterally, no cyanosis or clubbing, bilateral lower extremity with skin changes consistent with chronic venous stasis Skin Skin Narrative: Bilateral lower extremity skin changes consistent with venous stasis, scattered ecchymosis Neuro Neuro Narrative: Patient intubated and sedated unable to assess Psych Psych Narrative: Unable to assess Assessment & Plan Assessment/Plan (1) Elevated troponin: (2) Atrial fibrillation: (3) Acute kidney injury: (4) Hyperkalemia: PLAN: Plan Acute hypercapnic and hypoxic respiratory failure secondary to acute on chronic HFrEF/Staph aureus pneumonia -Patient acutely decompensated after his procedure yesterday and required intubation in PACU - Echocardiogram this admission shows an EF of 35% with moderate to severe global hypokinesis of the LV, moderately enlarged LA, trivial mitral valve insufficiency, moderate aortic stenosis and unable to estimate RV pressure - Continue intermittent dialysis per nephrology -Did well on spontaneous breathing trials with plans for extubation today - Will need appropriate goal-directed therapy if can tolerate - Critical care/pulmonary medicine are following-appreciate input - Cardiology following-appreciate input - Palliative care did evaluate the patient and she has signed off as patient is not interested MSSA pneumonia - Has been on ceftriaxone - Will discontinue linezolid - Today is day 6 of 7 for antibiotics with ceftriaxone Troponin elevation - Low suspicion of NSTEMI - Likely related to acute decompensated heart failure in addition to poor renal function - No further ischemic workup for now - Cardiology is following-appreciate input New onset A-fib with RVR -Now back in normal sinus rhythm - Discontinue amiodarone drip with extubation - Start p.o. Amio tomorrow 200 mg daily - Start Eliquis 5 mg p.o. twice daily tomorrow - Continue to monitor on telemetry - Cardiology has been assisting-appreciate input Acute on chronic hypotension -Patient is now off pressors and hemodynamics are improved BRYANNA on CKD stage IIIb - Creatinine at baseline appears to be about 1.5 - Suspect cardiorenal physiology -Continue midodrine 10 mg p.o. 3 times daily - HD per nephrology Generalized weakness and debility - PT and OT are following - Suspect patient will need placement at discharge but anticipate resistance - Case management/social welfare administrator following Thoracic aortic aneurysm - up to 5.3 cm - Blood pressure control - Outpatient follow-up - Patient is overall poor surgical candidate DM-2 - Oral agents on hold - Continue subcu insulin as ordered but monitor closely with worsening renal function - Fasting sugar is 147 Hypertension - Hold all home agents given hypotensive at this time - Will reintroduce History of VTE -Currently on subcu heparin with plans to transition to Eliquis tomorrow Mild chronic anemia - Stable ANDRADE/obesity hypoventilation syndrome - Continue BiPAP once extubated - Continue supplemental oxygen as needed after extubation DVT prophylaxis/GI prophylaxis -Subcu heparin - Eliquis to start tomorrow and then will discontinue subcu heparin -Continue Protonix for now we will transition to daily p.o. tomorrow if remains stable CODE STATUS - DNR CCA okay for intubation - Overall prognosis is poor-palliative care did evaluate the patient and he essentially kicked them out of the room Charges/Coding Visit Charges Inpatient E&M: 62097 Subs Hosp L2
--- NOTE | 2025-03-27 07:50 | PN.CC_ITS ---
Assessment & Plan Assessment/Plan (1) Acute on chronic respiratory failure with hypoxia and hypercapnia: PLAN: Plan RECOMMENDATIONS: 1. Proceed with a trial of extubation this morning. 2. Once extubated, wean supplemental oxygen to maintain saturations 88 to 92%. 3. Initiate BiPAP therapy with naps and nightly. 4. Continue antimicrobials. 5. Transition to p.o. amiodarone once able to tolerate intake by mouth. 6. Dialysis support per nephrology recommendations. 7. Continue appropriate ICU prophylaxis. 8. Encourage incentive spirometer use and mobilize patient as tolerated. IMPRESSIONS: 1. Postoperative respiratory failure/acute on chronic combined respiratory failure Most likely secondary to inadequate recovery from MAC with subsequent hypoventilation and development of hypercapnia, leading to intubation. With invasive mechanical ventilatory support, the patient has improved clinically. He was able to pass a spontaneous breathing trial this morning. The patient is alert and able to follow simple commands appropriately. Therefore, we will plan to proceed with a trial of extubation. Once extubated, supplemental oxygen will be continued to maintain saturations 88 to 92%. Recommend that the patient be continued on BiPAP therapy with naps and nightly. Lastly, swallow evaluation will be completed by nursing staff, with plans for dietary advancement as tolerated. 2. Acute decompensated congestive heart failure/new onset atrial fibrillation Continue volume optimization via hemodialysis. Remainder of management/recommendations per cardiology. The patient did convert to normal sinus rhythm with amiodarone administration. 3. BRYANNA on CKD Most likely cardiorenal in etiology. Nephrology is currently following to assist with hemodialysis needs. Continue scheduled midodrine. 4. History of obstructive sleep apnea/alveolar hypoventilation secondary to obesity Recommend restarting noninvasive positive pressure ventilatory support once successfully extubated. 5. History of diabetes mellitus/history of VTE/hypertension/super morbid obesity Complicates care, management, recovery and prognosis. Continue supportive care as noted above. PT/OT to work with the patient. Bedside swallow evaluation to be completed with dietary advancement, as tolerated. TIME: 34 minutes of critical care time, independent of procedures, was spent addressing the patient's postoperative respiratory failure, acute decompensated heart failure, BRYANNA on CKD, review of all data and collaboration with the care team. Subjective Subjective The patient was seen and examined at the bedside this morning. Events from the last 24 hours have been reviewed. The patient was febrile overnight with a Tmax noted to be 100.4 ?F. He has remained otherwise hemodynamically stable, without the need for vasopressor support. The patient tolerated a significant amount of volume removal yesterday with dialysis. He is currently documented to be overall net -1.8 L for the hospitalization. White blood cell count is normal. Hemoglobin and platelet count are stable. The patient was able to complete a spontaneous awakening trial this morning. Accordingly, he was placed on a spontaneous breathing trial, which she completed without issue. The patient is alert and able to follow commands appropriately. Objective Data Objective Data The patient's most recent lab work, culture data and imaging studies have all been personally reviewed. Surface echocardiogram was notable for a moderately dilated LV with an ejection fraction of 35%. Sputum culture dated March 22 was positive for MSSA. Vital Signs: Vital Signs Temp Pulse Resp BP Pulse Ox O2 Del Method O2 Flow Rate 100.2 F H 68 20 H 102/58 L 95 Mechanical Ventilator 10 03/27/25 07:00 03/27/25 07:00 03/27/25 07:00 03/27/25 07:00 03/27/25 07:00 03/27/25 07:00 03/25/25 17:39 FiO2 30 03/27/25 07:00 Oxygen Flow Rate (L/min) 10 Oxygen Delivery Method Mechanical Ventilator Weight: 349 lb 3.395 oz Body Mass Index (BMI) 50.0 Intake & Output: Intake and Output for Last 24 Hours 03/25/25 03/26/25 03/27/25 23:59 23:59 23:59 Intake Total 1109.50 / 1200.64 2568.49 / 2681.70 361.32 / 361.32 Output Total 590 / 735 7732 / 7782 75 / 75 Balance 519.50 / 465.64 -5163.51 / -5100.30 286.32 / 286.32 Lab / Micro Data Attestation: I reviewed the patient's lab results. 03/27/25 03:20 03/27/25 03:20 Labs: Laboratory Results - last 24 hr 03/26/25 09:05: Hep Bs Antigen Nonreactive 03/26/25 12:05: POC Glucose 124 H 03/26/25 13:29: Hgb 12.9 L 03/26/25 17:48: POC Glucose 134 H 03/26/25 21:05: POC Glucose 120 H 03/26/25 23:54: POC Glucose 166 H 03/27/25 03:20: WBC 5.6, RBC 4.00 L, Hgb 11.4 L, Hct 36.6 L, MCV 91.5, MCH 28.5, MCHC 31.1 L, RDW Std Deviation 50.1 H, RDW Coeff of Paddy 14.9 H, Plt Count 169, MPV 10.5, Immature Gran % (Auto) 0.900, Neut % (Auto) 80.3 H, Lymph % (Auto) 4.6 L, [place] % (Auto) 10.3 H, Eos % (Auto) 2.8, Baso % (Auto) 1.1 H, Absolute Neuts (auto) 4.5, Absolute Lymphs (auto) 0.26 L, Nucleated RBC % 0, Sodium 136, Potassium 4.4, Chloride 99, Carbon Dioxide 24.0, Anion Gap 13, BUN 80 H, C reatinine 3.19 H, Estim Creat Clear Calc 32.01 L, Est GFR (MDRD) Non-Af 20 L, B UN/Creatinine Ratio 25.1 H, Glucose 147 H, Calcium 8.7, Phosphorus 4.7 H 03/27/25 04:59: POC Glucose 134 H Micro: Microbiology 03/25/25 20:05 Sputum, Induced/Lukens Gram Stain - Final 03/22/25 19:54 Sputum, Expectorated/Coughed Gram Stain - Final 03/22/25 19:54 Sputum, Expectorated/Coughed Respiratory Culture - Final Staphylococcus aureus 03/22/25 11:00 Urine, Clean Catch Legionella Antigen - Final 03/22/25 11:00 Urine, Clean Catch Streptococcus pneumoniae Antigen (M - Final 03/21/25 22:30 Mucosa - Nose Respiratory Panel (PCR) - Final ABG Data ABG results: ABG 03/26/25 08:10 Specimen Type ART Sample Site L Radial pH 7.43 Bicarbonate Actual 27.0 H Total CO2 28 Base Excess 3 H O2 Saturation 92 L O2 % 30.0 ABG pCO2 40.4 ABG pO2 60 L Tristen Test Positive Respiration Rate 20 O2 Delivery Device Adult Vent Vent Mode AC Tidal Volume 450.0 POC PEEP 8 Rhythm Strip Rhythm Strip: Sinus Rhythm Rate: 82 Ectopy: None and PVC(s) Physical Exam Const Constitutional Narrative: Remains intubated and mechanically ventilated. Currently tolerating spontaneous mode of mechanical ventilation. Morbidly obese. HEENT normocephalic and head/scalp atraumatic Mouth: endotracheal tube in place and OG tube in place Eyes PERRL, EOMs intact bilaterally and conjunctivae normal Neck supple Neck Narrative: Large neck circumference with redundant soft tissue. General: trachea midline Chest inspection of chest normal Resp Auscultation: diminished lung sounds; Negative for rales, rhonchi or wheezes Cardio regular rate and regular rhythm Cardio Narrative: Remains in normal sinus rhythm. GI normal to inspection, nondistended, normoactive bowel sounds Extremity General Extremity: clubbing and edema bilateral lower extremity Skin General Skin Exam: venous stasis and dermatitis Neuro Neuro Narrative: Alert and able to follow simple commands appropriately. Charges/Coding Procedures Hospitalists Procedures: [id number] Critical Care 1st Hr
[2025-03-27] MEDS: PureFlow B 2K Dialysis Soln 1 BAG 6 BAG PF (08:08)
[2025-03-27] MEDS: 0.9% Normal Saline 1,000 ML IV.SOLN. 1000 ML OPERA.SITE (08:08)
--- NOTE | 2025-03-27 09:30 | NURSING ---
Dr. Rojas in room, orders to extubate the patient, respiratory in room, ready for extubation. Extubated at 0912, placed on 4L NC. Pt tolerated well. Restraints DC.
[2025-03-27] MEDS: 0.9% Normal Saline (250mL Bag) 250 ML 15 ML IV ×2 (11:37→11:38)
[2025-03-27] MEDS: Pantoprazole Sodium 40 MG in 0.9% Normal Saline (100mL MB+) 100 ML 300 MG IV ×2 (11:38→21:58)
[2025-03-27] MEDS: Ceftriaxone 2 GM in 0.9% Normal Saline (50mL MB+) 50 ML IV (11:38)
--- NOTE | 2025-03-27 14:31 | CHAPLAIN ---
Type of Pastoral Visit _x__ Initial Visit ___ Follow-up Visit ___ On-call Visit ___ General Patient Visit ___ Spiritual Assessment ___ Family Conference ___ Bereavement ___ Rapid Response ___ Code Blue ___ Other (describe below) Pastoral Care Referral From ___ Patient ___ Family _x__ Nurse ___ Physician ___ President And Cmo ___ [place] ___ Other (describe below) Sacrament/Intervention _x__ Active listening ___ Anointing ___ Oriental Orthodox ___ Bereavement ___ Communion ___ [place] exploration ___ ___ Life review _x__ Prayer ___ Reconciliation ___ Sacrament of Sick _x__ Supportive presence ___ Wedding ___ Other (describe below) Pastoral Comments patient was extubated this morning; pt is alert and able to converse; RN recommended a visit to this patient; family members are not present at this time; pt acknowledges the results engineer and affirms what has taken place today; pt is a bit short of breath and thus the visit is kept brief; pt is offered presence, supportive listening, prayer; prayer is immediately acknowledged as important and then given; pt is offered future support as desired
--- NOTE | 2025-03-27 19:00 | PN.RENAL_ITS ---
Subjective Subjective events noted. possible extubation today Objective Data Objective Data Vital Signs: Vital Signs Temp Pulse Resp BP Pulse Ox O2 Del Method O2 Flow Rate 98.5 F 91 27 H 121/69 H 95 Nasal Cannula 4 03/27/25 18:00 03/27/25 18:00 03/27/25 18:00 03/27/25 18:00 03/27/25 18:00 03/27/25 18:00 03/27/25 18:00 FiO2 30 03/27/25 08:00 Oxygen Flow Rate (L/min) 4 Oxygen Delivery Method Nasal Cannula Weight: 155.1 kg Body Mass Index (BMI) 48.9 Intake & Output: Intake and Output for Last 24 Hours 03/25/25 03/26/25 03/27/25 23:59 23:59 23:59 Intake Total 1109.50 / 1200.64 2568.49 / 2681.70 630.03 / 630.03 Output Total 590 / 735 7732 / 7782 3825 / 3825 Balance 519.50 / 465.64 -5163.51 / -5100.30 -3194.97 / -3194.97 Lab / Micro Data 03/27/25 03:20 03/27/25 03:20 Labs: Laboratory Results - last 24 hr 03/26/25 21:05: POC Glucose 120 H 03/26/25 23:54: POC Glucose 166 H 03/27/25 03:20: WBC 5.6, RBC 4.00 L, Hgb 11.4 L, Hct 36.6 L, MCV 91.5, MCH 28.5, MCHC 31.1 L, RDW Std Deviation 50.1 H, RDW Coeff of Paddy 14.9 H, Plt Count 169, MPV 10.5, Immature Gran % (Auto) 0.900, Neut % (Auto) 80.3 H, Lymph % (Auto) 4.6 L, [place] % (Auto) 10.3 H, Eos % (Auto) 2.8, Baso % (Auto) 1.1 H, Absolute Neuts (auto) 4.5, Absolute Lymphs (auto) 0.26 L, Nucleated RBC % 0, Sodium 136, Potassium 4.4, Chloride 99, Carbon Dioxide 24.0, Anion Gap 13, BUN 80 H, C reatinine 3.19 H, Estim Creat Clear Calc 32.01 L, Est GFR (MDRD) Non-Af 20 L, B UN/Creatinine Ratio 25.1 H, Glucose 147 H, Calcium 8.7, Phosphorus 4.7 H 03/27/25 04:59: POC Glucose 134 H 03/27/25 11:56: POC Glucose 170 H 03/27/25 16:48: POC Glucose 173 H Micro: Microbiology 03/25/25 20:05 Sputum, Induced/Lukens Gram Stain - Final 03/25/25 20:05 Sputum, Induced/Lukens Respiratory Culture - Preliminary Staphylococcus aureus 03/22/25 19:54 Sputum, Expectorated/Coughed Gram Stain - Final 03/22/25 19:54 Sputum, Expectorated/Coughed Respiratory Culture - Final Staphylococcus aureus 03/22/25 11:00 Urine, Clean Catch Legionella Antigen - Final 03/22/25 11:00 Urine, Clean Catch Streptococcus pneumoniae Antigen (M - Final 03/21/25 22:30 Mucosa - Nose Respiratory Panel (PCR) - Final Rhythm Strip Rhythm Strip: Sinus Rhythm Rate: 82 Ectopy: None and PVC(s) Physical Exam Narrative no JVD s1s2 no murmurs Diminished breath sounds posteriorly abdomen soft +++ edema bilateral legs and thighs Assessment & Plan Assessment/Plan (1) Acute kidney injury: PLAN: Baseline creatinine prior to this admission appears to be around 1.5. Currently creatinine is 2.2, BUN is disproportionately high, likely related to cardiorenal syndrome physiology. Urine analysis shows microscopic hematuria and proteinuria. He has never seen blood in his urine subjectively. Will try to get old records from his medical billing clerk in [place] about this. Appears volume overloaded. Weight gain is unclear. Continue IV Lasix for now. 03/23/2025. Moderate response to IV Lasix. BUN is higher, creatinine higher. Breathing is still not so great. Lower extremity edema about the same. We discussed about worsening renal failure in the setting of congestive heart failure. We discussed about the potential for dialysis. It seems he had renal failure in 2022 under similar circumstances. Was on dialysis for about 2 weeks and recovered. He is familiar with the process. Continue IV Lasix for now, if renal function continues to worsen, will consider short-term dialysis. All questions answered. 03/24/2025; hypervolemic BRYANNA superimposed on CKD stage III. Patient remains on Lasix drip. Urine output documented around 600 mL yesterday. Remains on O2 3 to 4 L nasal cannula. Weight up ~1kg today, up to 161 kg. Creatinine is worsening, 3.22 today. BUN worsening up to 124 today. Reviewed with patient that he is likely heading towards needing renal placement therapy. Patient had been on hemodialysis at [facility] and also outpatient kidney center in [place] about 2 years ago therefore familiar with hemodialysis. Patient states wants to talk with his but if dialysis is necessary/recommended he will be in agreement. There is no urgent need for hemodialysis today, potassium and bicarb acceptable. Reviewed nephrology plan with patient today, questions answered. Will review nephrology plan with Dr. Maya. Labs ordered for morning. Recommend strict urine output measurement. Assessment and plan reviewed with Dr. Gauthier. 03/25/2025; kidney function worsening, significantly fluid overloaded, creatinine 3.95, BUN 128. Potassium 5.4 today, received dose of Kayexalate. Patient is off Lasix drip due to hypotension, went into A-fib and on IV amiodarone and heparin. Urine output around 1.1 L yesterday. On oral midodrine. Plan is for patient to have tunneled hemodialysis catheter placed today. Depending on timing we will plan for dialysis afterwards. Patient will dialyze on 2K bath and attempt fluid removal as patient/blood pressure tolerates. Case management consulted for dialysis arrangements/discharge planning to [facility], Dx: BRYANNA. We will continue to monitor for renal recovery. Assessment and plan reviewed with Dr. Gauthier. 03/26/2025. Events noted. Had respiratory failure after line placement. Intubated. Chest x-ray showed significant pulmonary edema. Was started on CRRT, tolerated fluid removal. This morning switched over to hemodialysis mode. Fluid removal 4 to 5 L as tolerated. Minimal oxygen requirements, FiO2 30%, PEEP of 8. Peripheral edema present. Discussed with ICU attending. 03/27/25. elena ICU attending. possible extubation today. will likely plan for HD tomorrow as well and then 3 times a week. significantly better edema.
[2025-03-28] VITALS (38 sets, daily range): BP systolic 92–136; BP diastolic 50–78; PULSE 62–85; RESP 14–32; TEMP 36.4–37.1; O2SAT 93–100; BMI 48.5; BMI 47.5
[2025-03-28 06:38] LABS: Hematocrit 38.8 % (40-54); Hemoglobin 11.8 g/dL (13.0-16.5); Immature Granulocytes Count 0.070 X10^3/uL (0.0-0.0); Mean Corp Hgb Conc 30.4 g/dL (32-36); Mean Corpuscular Volume 94.6 fL (80-94); Mean Platelet Vol. 10.6 fl (6.2-12.0); NRBC Flagged by Analyzer 0 % (0-5); POSITIVE DIFFERENTIAL YES; Platelet Count 178 K/mm3 (150-450); RBC Distribution Width CV 14.9 % (11.6-14.6); RBC Distribution Width SD 51.8 fl (35.1-43.9); Red Blood Count 4.10 M/mm3 (4.6-6.2); White Blood Count 6.4 K/mm3 (4.4-11.0)
[2025-03-28 06:52] LABS: AST(SGOT) 17 U/L (<=37); Alanine Aminotransfer ALT/SGPT < 5 U/L (<=46); Albumin, Serum 3.5 g/dL (3.4-4.8); Alkaline Phosphatase 78 U/L (40-129); Anion Gap 14 (5-15); BUN 71 mg/dL (4-19); BUN/Creat Ratio 19.5 RATIO (10-20); Calcium,Total 9.1 mg/dL (7.6-11.0); Carbon Dioxide 23.8 mmol/L (21.0-32.0); Chloride 101 mmol/L (98-108); Estimated Creatinine Clearance 27.89 ml/min (50-250); Globulin 3.6 g/dL (2.2-4.2); Glucose 113 mg/dL (70-99); Magnesium 2.5 mg/dL (1.5-2.2); Potassium 4.7 mmol/L (3.3-5.1)
--- NOTE | 2025-03-28 07:17 | PN.HOSP_ITS ---
Reason for Visit Chief Complaint: Dyspnea, worse with exertion. Subjective Subjective Patient did well after extubation. No issues overnight. We did discuss ongoing care plan as he does not have insurance. Current plan is private pay for dialysis. I am concerned the patient will not be able to go home at discharge due to debility. This was discussed with the patient as well and he was going to talk to his Deacon and his son. Objective Data Objective Data Vital Signs: Vital Signs Temp Pulse Resp BP Pulse Ox O2 Del Method O2 Flow Rate 98.5 F 71 17 113/58 L 95 Nasal Cannula 4 03/28/25 05:00 03/28/25 07:00 03/28/25 07:00 03/28/25 07:00 03/28/25 07:00 03/28/25 07:00 03/28/25 07:00 FiO2 35 03/28/25 06:00 Oxygen Flow Rate (L/min) 4 Oxygen Delivery Method Nasal Cannula Weight: 153.9 kg Body Mass Index (BMI) 48.5 Intake & Output: Intake and Output for Last 24 Hours 03/26/25 03/27/25 03/28/25 23:59 23:59 23:59 Intake Total 2568.49 / 2681.70 735.53 / 735.53 Output Total 7732 / 7782 3825 / 3825 130 / 130 Balance -5163.51 / -5100.30 -3089.47 / -3089.47 -130 / -130 Lab / Micro Data 03/28/25 06:19 03/28/25 06:19 Labs: Laboratory Results - last 24 hr 03/27/25 11:56: POC Glucose 170 H 03/27/25 16:48: POC Glucose 173 H 03/27/25 21:57: POC Glucose 146 H 03/28/25 06:19: WBC 6.4, RBC 4.10 L, Hgb 11.8 L, Hct 38.8 L, MCV 94.6 H, MCH 28.8, MCHC 30.4 L, RDW Std Deviation 51.8 H, RDW Coeff of Paddy 14.9 H, Plt Count 178, MPV 10.6, Immature Gran % (Auto) 1.100 H, Neut % (Auto) 82.4 H, Lymph % (Auto) 5.3 L, [place] % (Auto) 8.6, Eos % (Auto) 2.0, Baso % (Auto) 0.6, Absolute Neuts (auto) 5.3, Absolute Lymphs (auto) 0.34 L, Nucleated RBC % 0, Sodium 139, Potassium 4.7, Chloride 101, Carbon Dioxide 23.8, Anion Gap 14, BUN 71 H, C reatinine 3.62 H, Estim Creat Clear Calc 27.89 L, Est GFR (MDRD) Non-Af 17 L, BUN/Creatinine Ratio 19.5, Glucose 113 H, Calcium 9.1, Phosphorus 7.4 H, M agnesium 2.5 H, Total Bilirubin 0.48, AST 17, ALT < 5, Alkaline Phosphatase 78, Total Protein 7.1, Albumin 3.5, Globulin 3.6, Albumin/Globulin Ratio 1.0 Micro: Microbiology 03/25/25 20:05 Sputum, Induced/Lukens Gram Stain - Final 03/25/25 20:05 Sputum, Induced/Lukens Respiratory Culture - Preliminary Staphylococcus aureus 03/22/25 19:54 Sputum, Expectorated/Coughed Gram Stain - Final 03/22/25 19:54 Sputum, Expectorated/Coughed Respiratory Culture - Final Staphylococcus aureus 03/22/25 11:00 Urine, Clean Catch Legionella Antigen - Final 03/22/25 11:00 Urine, Clean Catch Streptococcus pneumoniae Antigen (M - Final 03/21/25 22:30 Mucosa - Nose Respiratory Panel (PCR) - Final Rhythm Strip Rhythm Strip: Sinus Rhythm Rate: 82 Ectopy: None and PVC(s) Physical Exam Const alert, oriented x3, no apparent distress and well nourished; Negative for average body habitus or healthy appearing Constitutional Narrative: Morbidly obese elderly, white male, unhealthy appearing, sitting up in bed eating breakfast and watching television, appears comfortable, nontoxic HEENT head/scalp atraumatic and moist oral mucous membranes HEENT Narrative: Mallampati 4, no thrush, dentition is poor Head and Scalp: normocephalic Neck Neck Narrative: Right tunneled dialysis catheter in place-dressing is clean and dry and intact Resp normal respiratory effort, no retractions, no use of accessory muscles and clear to auscultation bilaterally Resp Narrative: Limited exam due to body habitus, breath sounds are distant, improved aeration in the left Auscultation: Negative for crackles, rhonchi or wheezes Cardio regular rate, regular rhythm, S1 normal heart sound, S2 normal heart sound, no murmurs, no rub, no gallops and no clicks; Negative for no JVD Cardio Narrative: Intermittent ectopy GI normal to inspection, nondistended, normoactive bowel sounds, soft to palpation and non-tender GI Narrative: Large protuberant abdomen Extremity Extremity Narrative: Bilateral lower extremity edema improving, left still greater than right, 3+ on left with skin wrinkling noted, 1-2+ on right with skin wrinkling noted that was not present previously, no cyanosis or clubbing, patient with skin changes consistent with chronic venous stasis Neuro moves all extremities and no focal motor deficits Neuro Narrative: Severe generalized weakness with no focal deficits Speech: speech normal Psych Negative for affect normal Psych Narrative: Affect is flat but patient makes good eye contact and interacts appropriately do not forget the air mattress Assessment & Plan Assessment/Plan (1) Elevated troponin: (2) Atrial fibrillation: (3) Acute kidney injury: (4) Hyperkalemia: PLAN: Plan Acute hypercapnic and hypoxic respiratory failure secondary to acute on chronic HFrEF/Staph aureus pneumonia - Extubated a.m. 03/27/2025 and doing well on nasal cannula -Baseline nasal cannula prior to admission was 6 L and currently stable on 4 L - Echocardiogram this admission shows an EF of 35% with moderate to severe global hypokinesis of the LV, moderately enlarged LA, trivial mitral valve insufficiency, moderate aortic stenosis and unable to estimate RV pressure - Continue intermittent dialysis per nephrology--> on HD today with next dialysis planned for Monday - Critical care/pulmonary medicine are following-appreciate input - Cardiology following-appreciate input - Palliative care did evaluate the patient and she has signed off as patient is not interested - Transfer to PCU MSSA pneumonia - Has been on ceftriaxone - Will discontinue linezolid - Day 7 of 7 for antibiotics--> discontinue after today Severe generalized weakness - Related to acute illness and chronic comorbidities - PT and OT following - current recommendations are for placement but unclear if family will be amenable to this Troponin elevation - Low suspicion of NSTEMI - Likely related to acute decompensated heart failure in addition to poor renal function - No further ischemic workup for now - Cardiology is following-appreciate input New onset A-fib with RVR - Remains in sinus rhythm with intermittent ectopy - Continue p.o. amiodarone 200 mg daily -Restart home Coreg - Continue Eliquis 5 mg p.o. twice daily with discontinuation of aspirin 81 mg daily - Continue to monitor on telemetry - Cardiology has been following-Will have patient follow-up after discharge and cardiology has signed off at this time Acute on chronic hypotension - Continue midodrine for now BRYANNA on CKD stage IIIb - Creatinine at baseline appears to be about 1.5 - Suspect cardiorenal physiology -Continue midodrine 10 mg p.o. 3 times daily - HD per nephrology - Unclear at this time if this will be chronic hemodialysis or temporary Thoracic aortic aneurysm - up to 5.3 cm - Blood pressure control - Outpatient follow-up - Patient is overall poor surgical candidate DM-2 - Oral agents on hold - Continue subcu insulin as ordered but monitor closely with worsening renal function - Fasting sugar is 113 Hypertension - On Coreg due to tachycardia - Monitor blood pressure and wean midodrine as able with reintroduction of antihypertensives as appropriate History of VTE - Continue Eliquis Mild chronic anemia - Stable ANDRADE/obesity hypoventilation syndrome - Continue BiPAP nightly and as needed - Continue supplemental oxygen as needed after extubation DVT prophylaxis/GI prophylaxis - Protonix p.o. twice daily - Eliquis 5 mg p.o. twice daily CODE STATUS - DNR CCA okay for short-term intubation Charges/Coding Visit Charges Inpatient E&M: 63841 Subs Hosp L2
[2025-03-28] MEDS: APIXABAN 5 MG TABLET PO ×2 (07:30→21:28)
--- NOTE | 2025-03-28 07:49 | PCM.PN.INT ---
Assessment & Plan Assessment/Plan (1) Acute on chronic respiratory failure with hypoxia and hypercapnia: PLAN: Plan RECOMMENDATIONS: 1. Supplemental oxygen to maintain saturations 88 to 92%. 2. BiPAP therapy with naps and nightly. 3. Continue antimicrobials to complete treatment course. 4. Ongoing dialysis support per nephrology recommendations. 5. Encourage incentive spirometer use and mobilize patient as tolerated. 6. The patient is medically stable for transfer out of the intensive care unit. 7. Will sign off from a critical care perspective. Please call with any additional questions. IMPRESSIONS: 1. Postoperative respiratory failure/acute on chronic combined respiratory failure Resolved. Most likely secondary to inadequate recovery from MAC with subsequent hypoventilation and development of hypercapnia, leading to intubation. With invasive mechanical ventilatory support, the patient improved clinically and was able to be extubated on March 27. Plan to continue to wean supplemental oxygen to maintain saturations 88 to 92%. Continue BiPAP therapy with naps and nightly. Encourage incentive spirometer use and mobilize patient as tolerated. 2. Acute decompensated congestive heart failure/new onset atrial fibrillation Continue volume optimization via hemodialysis. Remainder of management/recommendations per cardiology. The patient did convert to normal sinus rhythm with amiodarone administration. 3. BRYANNA on CKD Most likely cardiorenal in etiology. Nephrology is currently following to assist with hemodialysis needs. Continue scheduled midodrine. 4. History of obstructive sleep apnea/alveolar hypoventilation secondary to obesity Recommend continuing noninvasive positive pressure ventilatory support nightly and as needed throughout the day. 5. History of diabetes mellitus/history of VTE/hypertension/super morbid obesity Complicates care, management, recovery and prognosis. Continue supportive care as noted above. Physical therapy to work with the patient. This note was generated with [employer] dictation software. It may contain incorrect words, spelling, and punctuation that were not noted in checking the note before signing. Subjective Subjective The patient was seen and examined at the bedside this morning. Events from the last 24 hours have been reviewed. The patient is currently afebrile, hemodynamically stable and maintaining appropriate oxygen saturations on 4 L/min via nasal cannula, which is his baseline requirement. The patient has no specific complaints this morning. He is currently documented to be overall net -5.4 L for the hospitalization. White blood cell count is normal. Hemoglobin and platelet count are stable. The patient is again undergoing dialysis today. Objective Data Objective Data The patient's most recent lab work, culture data and imaging studies have all been personally reviewed. Surface echocardiogram was notable for a moderately dilated LV with an ejection fraction of 35%. Sputum culture dated March 22 was positive for MSSA. Vital Signs: Vital Signs Temp Pulse Resp BP Pulse Ox O2 Del Method O2 Flow Rate 98.5 F 71 17 113/58 L 95 Nasal Cannula 4 03/28/25 05:00 03/28/25 07:00 03/28/25 07:00 03/28/25 07:00 03/28/25 07:00 03/28/25 07:00 03/28/25 07:00 FiO2 35 03/28/25 06:00 Oxygen Flow Rate (L/min) 4 Oxygen Delivery Method Nasal Cannula Weight: 339 lb 4.662 oz Body Mass Index (BMI) 48.5 Intake & Output: Intake and Output for Last 24 Hours 03/26/25 03/27/25 03/28/25 23:59 23:59 23:59 Intake Total 2568.49 / 2681.70 735.53 / 735.53 Output Total 7732 / 7782 3825 / 3825 130 / 130 Balance -5163.51 / -5100.30 -3089.47 / -3089.47 -130 / -130 Lab / Micro Data Attestation: I reviewed the patient's lab results. 03/28/25 06:19 03/28/25 06:19 Labs: Laboratory Results - last 24 hr 03/27/25 11:56: POC Glucose 170 H 03/27/25 16:48: POC Glucose 173 H 03/27/25 21:57: POC Glucose 146 H 03/28/25 06:19: WBC 6.4, RBC 4.10 L, Hgb 11.8 L, Hct 38.8 L, MCV 94.6 H, MCH 28.8, MCHC 30.4 L, RDW Std Deviation 51.8 H, RDW Coeff of Paddy 14.9 H, Plt Count 178, MPV 10.6, Immature Gran % (Auto) 1.100 H, Neut % (Auto) 82.4 H, Lymph % (Auto) 5.3 L, [place] % (Auto) 8.6, Eos % (Auto) 2.0, Baso % (Auto) 0.6, Absolute Neuts (auto) 5.3, Absolute Lymphs (auto) 0.34 L, Nucleated RBC % 0, Sodium 139, Potassium 4.7, Chloride 101, Carbon Dioxide 23.8, Anion Gap 14, BUN 71 H, Creatinine 3.62 H, Estim Creat Clear Calc 27.89 L, Est GFR (MDRD) Non-Af 17 L, BUN/Creatinine Ratio 19.5, Glucose 113 H, Calcium 9.1, Phosphorus 7.4 H, Magnesium 2.5 H, Total Bilirubin 0.48, AST 17, ALT < 5, Alkaline Phosphatase 78, Total Protein 7.1, Albumin 3.5, Globulin 3.6, Albumin/Globulin Ratio 1.0 Micro: Microbiology 03/25/25 20:05 Sputum, Induced/Lukens Gram Stain - Final 03/25/25 20:05 Sputum, Induced/Lukens Respiratory Culture - Final Staphylococcus aureus 03/22/25 19:54 Sputum, Expectorated/Coughed Gram Stain - Final 03/22/25 19:54 Sputum, Expectorated/Coughed Respiratory Culture - Final Staphylococcus aureus 03/22/25 11:00 Urine, Clean Catch Legionella Antigen - Final 03/22/25 11:00 Urine, Clean Catch Streptococcus pneumoniae Antigen (M - Final 03/21/25 22:30 Mucosa - Nose Respiratory Panel (PCR) - Final ABG Data ABG results: ABG 03/26/25 08:10 Specimen Type ART Sample Site L Radial pH 7.43 Bicarbonate Actual 27.0 H Total CO2 28 Base Excess 3 H O2 Saturation 92 L O2 % 30.0 ABG pCO2 40.4 ABG pO2 60 L Tristen Test Positive Respiration Rate 20 O2 Delivery Device Adult Vent Vent Mode AC Tidal Volume 450.0 POC PEEP 8 Rhythm Strip Rhythm Strip: Sinus Rhythm Rate: 82 Ectopy: None and PVC(s) Physical Exam Const alert and no apparent distress General Appearance: cooperative HEENT normocephalic and head/scalp atraumatic Eyes PERRL, EOMs intact bilaterally and conjunctivae normal Neck supple Neck Narrative: Large neck circumference with redundant soft tissue. General: trachea midline Chest inspection of chest normal Resp Auscultation: diminished lung sounds; Negative for rales, rhonchi or wheezes Cardio regular rate and regular rhythm Cardio Narrative: Remains in normal sinus rhythm. GI normal to inspection, nondistended, normoactive bowel sounds Extremity General Extremity: clubbing and edema bilateral lower extremity Skin General Skin Exam: venous stasis and dermatitis Neuro CN's II-XII intact bilaterally, moves all extremities and no focal motor deficits Psych Mood & Affect: flat affect Charges/Coding Visit Charges Inpatient E&M: 51098 Subs Hosp L2
[2025-03-28] MEDS: PureFlow B 2K Dialysis Soln 1 BAG 6 BAG PF (08:14)
[2025-03-28] MEDS: 0.9% Normal Saline 1,000 ML IV.SOLN. 1000 ML OPERA.SITE (08:14)
[2025-03-28] MEDS: 0.9% Saline Lock 10 ML Syringe IV ×2 (08:15→11:50)
--- NOTE | 2025-03-28 11:49 | PCM.PN.REN ---
Subjective Subjective no new events Objective Data Objective Data Vital Signs: Vital Signs Temp Pulse Resp BP Pulse Ox O2 Del Method O2 Flow Rate 98.0 F 71 27 H 126/58 H 95 Room Air 4 03/28/25 11:15 03/28/25 11:45 03/28/25 11:45 03/28/25 11:45 03/28/25 11:45 03/28/25 11:45 03/28/25 11:30 FiO2 35 03/28/25 06:00 Oxygen Flow Rate (L/min) 4 Oxygen Delivery Method Room Air Weight: 153.9 kg Body Mass Index (BMI) 48.5 Intake & Output: Intake and Output for Last 24 Hours 03/26/25 03/27/25 03/28/25 23:59 23:59 23:59 Intake Total 2568.49 / 2681.70 735.53 / 735.53 Output Total 7732 / 7782 3825 / 3825 130 / 130 Balance -5163.51 / -5100.30 -3089.47 / -3089.47 -130 / -130 Lab / Micro Data 03/28/25 06:19 03/28/25 06:19 Labs: Laboratory Results - last 24 hr 03/27/25 11:56: POC Glucose 170 H 03/27/25 16:48: POC Glucose 173 H 03/27/25 21:57: POC Glucose 146 H 03/28/25 06:19: WBC 6.4, RBC 4.10 L, Hgb 11.8 L, Hct 38.8 L, MCV 94.6 H, MCH 28.8, MCHC 30.4 L, RDW Std Deviation 51.8 H, RDW Coeff of Paddy 14.9 H, Plt Count 178, MPV 10.6, Immature Gran % (Auto) 1.100 H, Neut % (Auto) 82.4 H, Lymph % (Auto) 5.3 L, [place] % (Auto) 8.6, Eos % (Auto) 2.0, Baso % (Auto) 0.6, Absolute Neuts (auto) 5.3, Absolute Lymphs (auto) 0.34 L, Nucleated RBC % 0, Sodium 139, Potassium 4.7, Chloride 101, Carbon Dioxide 23.8, Anion Gap 14, BUN 71 H, Creatinine 3.62 H, Estim Creat Clear Calc 27.89 L, Est GFR (MDRD) Non-Af 17 L, BUN/Creatinine Ratio 19.5, Glucose 113 H, Calcium 9.1, Phosphorus 7.4 H, Magnesium 2.5 H, Total Bilirubin 0.48, AST 17, ALT < 5, Alkaline Phosphatase 78, Total Protein 7.1, Albumin 3.5, Globulin 3.6, Albumin/Globulin Ratio 1.0 03/28/25 07:29: POC Glucose 114 H Micro: Microbiology 03/25/25 20:05 Sputum, Induced/Lukens Gram Stain - Final 03/25/25 20:05 Sputum, Induced/Lukens Respiratory Culture - Final Staphylococcus aureus 03/22/25 19:54 Sputum, Expectorated/Coughed Gram Stain - Final 03/22/25 19:54 Sputum, Expectorated/Coughed Respiratory Culture - Final Staphylococcus aureus 03/22/25 11:00 Urine, Clean Catch Legionella Antigen - Final 03/22/25 11:00 Urine, Clean Catch Streptococcus pneumoniae Antigen (M - Final 03/21/25 22:30 Mucosa - Nose Respiratory Panel (PCR) - Final Rhythm Strip Rhythm Strip: Sinus Rhythm Rate: 82 Ectopy: None and PVC(s) Physical Exam Narrative no JVD s1s2 no murmurs Diminished breath sounds posteriorly abdomen soft +++ edema bilateral legs and thighs Assessment & Plan Assessment/Plan (1) Acute kidney injury: PLAN: Baseline creatinine prior to this admission appears to be around 1.5. Currently creatinine is 2.2, BUN is disproportionately high, likely related to cardiorenal syndrome physiology. Urine analysis shows microscopic hematuria and proteinuria. He has never seen blood in his urine subjectively. Will try to get old records from his platinum smith in [place] about this. Appears volume overloaded. Weight gain is unclear. Continue IV Lasix for now. 03/23/2025. Moderate response to IV Lasix. BUN is higher, creatinine higher. Breathing is still not so great. Lower extremity edema about the same. We discussed about worsening renal failure in the setting of congestive heart failure. We discussed about the potential for dialysis. It seems he had renal failure in 2022 under similar circumstances. Was on dialysis for about 2 weeks and recovered. He is familiar with the process. Continue IV Lasix for now, if renal function continues to worsen, will consider short-term dialysis. All questions answered. 03/24/2025; hypervolemic BRYANNA superimposed on CKD stage III. Patient remains on Lasix drip. Urine output documented around 600 mL yesterday. Remains on O2 3 to 4 L nasal cannula. Weight up ~1kg today, up to 161 kg. Creatinine is worsening, 3.22 today. BUN worsening up to 124 today. Reviewed with patient that he is likely heading towards needing renal placement therapy. Patient had been on hemodialysis at [facility] and also outpatient kidney center in [place] about 2 years ago therefore familiar with hemodialysis. Patient states wants to talk with his but if dialysis is necessary/recommended he will be in agreement. There is no urgent need for hemodialysis today, potassium and bicarb acceptable. Reviewed nephrology plan with patient today, questions answered. Will review nephrology plan with Dr. Maya. Labs ordered for morning. Recommend strict urine output measurement. Assessment and plan reviewed with Dr. Gauthier. 03/25/2025; kidney function worsening, significantly fluid overloaded, creatinine 3.95, BUN 128. Potassium 5.4 today, received dose of Kayexalate. Patient is off Lasix drip due to hypotension, went into A-fib and on IV amiodarone and heparin. Urine output around 1.1 L yesterday. On oral midodrine. Plan is for patient to have tunneled hemodialysis catheter placed today. Depending on timing we will plan for dialysis afterwards. Patient will dialyze on 2K bath and attempt fluid removal as patient/blood pressure tolerates. Case management consulted for dialysis arrangements/discharge planning to [facility], Dx: BRYANNA. We will continue to monitor for renal recovery. Assessment and plan reviewed with Dr. Gauthier. 03/26/2025. Events noted. Had respiratory failure after line placement. Intubated. Chest x-ray showed significant pulmonary edema. Was started on CRRT, tolerated fluid removal. This morning switched over to hemodialysis mode. Fluid removal 4 to 5 L as tolerated. Minimal oxygen requirements, FiO2 30%, PEEP of 8. Peripheral edema present. Discussed with ICU attending. 03/27/25. dw ICU attending. possible extubation today. will likely plan for HD tomorrow as well and then 3 times a week. significantly better edema. 03/28/25. HD as ordered. will likely keep MWF schedule. elnea hospitalist. insurance issues. likely will need HD at the time of dc.
[2025-03-28] MEDS: Ceftriaxone 2 GM in 0.9% Normal Saline (50mL MB+) 50 ML IV (12:11)
--- NOTE | 2025-03-28 13:28 | CASEMGMT ---
Social Work SW spoke with pt and with pt's son Noé to discuss finances as pt will be private pay for dialysis. Pt and Noé direct SW to speak with the Deacon of pt's [employer], Bear Delgado [phone], as there is some sort of [employer] fund that pt family is not able to fully explain. This [employer] fund may be able to help with costs associated with medical bills. VM left with Bear Delgado and awaiting return call. PATSY Fleming
--- NOTE | 2025-03-28 13:31 | CASEMGMT ---
DENISE CALLOWAY NOTE: 2nd & 3rd HD order and post-treatment documentation have been sent to [facility] via portal. Bronson DIAZ RN CM
--- NOTE | 2025-03-28 15:16 | CASEMGMT ---
Addendum entered by Shannan Schulte 03/28/25 15:46: Ry @ [employer] (following for financial clearance) contact #: [phone]. Original Note: DENISE CALLOWAY NOTE: Call received from Ry @ [employer]. She states they no longer accept pt's that are private pay. They do, however, accept [employer] fund programs. She was made aware pt has a [employer] assist program and provided w/Deacon Bear Delgado's contact #: [phone]. She states Nani, who works w/pt's and roman catholic fund groups will reach out to Deacon Sifuentes. DENISE CALLOWAY spoke w/Nahed @ [employer] ( , ext: [phone]) who is covering for Catherine. She states they have received all required documents and pt has received medical clearance. Financial clearance is pending. Per Dr Maya, pt may be medically ready to discharge by early next week (Mon or possibly) Nahed was made aware that pt may be medically ready to discharge by early next week & if financial clearance is obtained by then, 1st OP HD treatment could potentially be 04/02. Call received from Gloria @ [employer]. She states is unable to locate tunneled cath CXR confirmation. This was faxed to her at this time to [phone]. She was also made aware of potential 1st OP HD treatment being 04/02, pending pt is medically ready to discharge and if financial clearance received. Bronson DIAZ RN, CM
--- NOTE | 2025-03-28 15:35 | CASEMGMT ---
Social Work Second call placed to Pt's baptism Deageovany Delgado. Bear confirms that there is a [employer] Assistance Program through pt's baptism. All medical bills will go to pt, and pt will pay what he is able and the [employer] Assistance will help with the rest of the cost. BARRY explained that pt will need dialysis at time of discharge and would like to use [facility]. BARRY also explained that prior to [facility] accepting pt, [facility] is requesting to speak with Bear to discuss the baptism assistance program. Bear is agreeable to accept a call from [facility]. RNCM updated and to notify [facility] of Bear's contact information. BARRY met with pt's son Noé and updated on conversation with Deacon Siufentes and also that [facility] will be reaching out to Bear to work out financials for Dialysis. BARRY reviewed pt's therapy notes with Noé and explained that pt was Max Ax2 for EOB only and unable to stand today. Discussed discharge plan and Noé is understanding pt cannot return home at this current level. A list of SNF providers including quality and resource use data and consistent with the patient?s preferred geographic region, medical needs, and insurance network were provided from the [employer] Guide. Noé states that pt has been to [facility] previously and this would be the first choice. BARRY informed Noé this SNF stay would be private pay and Néo is understanding of this. Referral sent to [facility]. BARRY will await determination of acceptance. Tentative Plan: [facility], [facility]. Pending acceptance PATSY Fleming
--- NOTE | 2025-03-28 17:06 | CASEMGMT ---
Social Work [facility] is unable to accept pt. SW updated pt's son Noé and requested that pt and family review list and make additional choices. BARRY will follow up with Noé tomorrow. PATSY Turner
[2025-03-29] VITALS (23 sets, daily range): BP systolic 72–109; BP diastolic 45–64; PULSE 62–78; RESP 14–30; TEMP 36.3–37.1; O2SAT 88–99; BMI 45.1; BMI 45.2
[2025-03-29] MEDS: Albumin Human 25% (100 mL) 25 GM/100 ML BAG IV (02:01)
--- NOTE | 2025-03-29 03:41 | PCM.HOSP.N ---
Hospitalist Note I was contacted by [employer] and informed patient was becoming symptomatically hypotensive in spite of IV albumin with systolic blood pressure in the ~70 mmHg range so he was then moved to ICU to be started on norepinephrine drip to keep MAP > 65 mmHg.
--- NOTE | 2025-03-29 04:04 | NURSING ---
Albumin completed, BP still lowe 72/45. Pt noted to be more lethargic. Still oriented but very slow to respond and diaphoretic at this time. Dr Bond called and notified. Verbal order to transfer to ICU. ICU called and report given. Pt packed up and transfered to ICU. called and notified of change in PT condition and that he is now in the ICU. verbalized understanding.
--- NOTE | 2025-03-29 06:56 | PCM.PN.HOSP ---
Reason for Visit Chief Complaint: Dyspnea, worse with exertion. Subjective Subjective No specific complaints. Patient refused BiPAP intermittently last night. This is the first time he did this but is wearing it now. Sats remained stable. Was transferred back to the ICU yesterday since he had transient hypotension but he was asymptomatic for this event. Blood pressures are fine now. BPs are always low to low normal due to his heart failure baseline. Objective Data Objective Data Vital Signs: Vital Signs Temp Pulse Resp BP Pulse Ox O2 Del Method O2 Flow Rate 97.9 F 75 28 H 99/60 92 Nasal Cannula 4 03/29/25 05:00 03/29/25 06:00 03/29/25 06:00 03/29/25 06:00 03/29/25 06:00 03/29/25 06:00 03/29/25 06:00 FiO2 35 03/28/25 06:00 Oxygen Flow Rate (L/min) 4 Oxygen Delivery Method Nasal Cannula Weight: 146.7 kg Body Mass Index (BMI) 45.2 Intake & Output: Intake and Output for Last 24 Hours 03/27/25 03/28/25 03/29/25 23:59 23:59 23:59 Intake Total 735.53 / 735.53 300 / 400 200 / 200 Output Total 3825 / 3825 3855 / 3855 Balance -3089.47 / -3089.47 -3555 / -3455 200 / 200 Lab / Micro Data 03/29/25 09:30 03/28/25 06:19 Labs: Laboratory Results - last 24 hr 03/28/25 07:29: POC Glucose 114 H 03/28/25 12:16: POC Glucose 151 H 03/28/25 16:33: POC Glucose 165 H 03/28/25 21:24: POC Glucose 150 H Micro: Microbiology 03/25/25 20:05 Sputum, Induced/Lukens Gram Stain - Final 03/25/25 20:05 Sputum, Induced/Lukens Respiratory Culture - Final Staphylococcus aureus 03/22/25 19:54 Sputum, Expectorated/Coughed Gram Stain - Final 03/22/25 19:54 Sputum, Expectorated/Coughed Respiratory Culture - Final Staphylococcus aureus 03/22/25 11:00 Urine, Clean Catch Legionella Antigen - Final 03/22/25 11:00 Urine, Clean Catch Streptococcus pneumoniae Antigen (M - Final 03/21/25 22:30 Mucosa - Nose Respiratory Panel (PCR) - Final Rhythm Strip Rhythm Strip: Sinus Rhythm Rate: 82 Ectopy: None and PVC(s) Physical Exam Const alert, no apparent distress and well nourished; Negative for average body habitus or healthy appearing Constitutional Narrative: Morbidly obese elderly, white male, chronically ill/unhealthy appearing, lying in bed on right side, on BiPAP, nursing getting blood, unable to assess orientation as patient is on BiPAP but this has not been problematic HEENT head/scalp atraumatic and moist oral mucous membranes HEENT Narrative: Dried blood around nares Resp normal respiratory effort, no retractions, no use of accessory muscles and clear to auscultation bilaterally Resp Narrative: Limited exam due to body habitus, breath sounds are distant, improved aeration in the left but still diminished left greater than right Auscultation: Negative for crackles, rhonchi or wheezes Cardio regular rate, regular rhythm, S1 normal heart sound, S2 normal heart sound, no murmurs, no rub, no gallops and no clicks Cardio Narrative: Intermittent ectopy GI normal to inspection, nondistended, normoactive bowel sounds, soft to palpation and non-tender GI Narrative: Large protuberant abdomen Extremity Extremity Narrative: Much improved lower extremity edema with wrinkling of skin now noted bilateral, left lower extremity still more edematous than right, pulses are 2+, no cyanosis or clubbing Neuro moves all extremities and no focal motor deficits Neuro Narrative: Severe generalized weakness with no focal deficits Psych Negative for affect normal Psych Narrative: Affect remains flat Assessment & Plan Assessment/Plan (1) Elevated troponin: (2) Atrial fibrillation: (3) Acute kidney injury: (4) Hyperkalemia: PLAN: Plan Acute hypercapnic and hypoxic respiratory failure secondary to acute on chronic HFrEF/MSSA pneumonia - Intubated post dialysis catheter placement and extubated a.m. 03/27/2025 --> remained stable on nasal cannula at about 4 L -Baseline nasal cannula prior to admission was 6 L and currently stable on 4 L - Echocardiogram this admission shows an EF of 35% with moderate to severe global hypokinesis of the LV, moderately enlarged LA, trivial mitral valve insufficiency, moderate aortic stenosis and unable to estimate RV pressure - Continue intermittent dialysis per nephrology--> on HD today with next dialysis planned for Monday - Pulmonary medicine cardiology has signed off - Palliative care did evaluate the patient and she has signed off as patient is not interested MSSA pneumonia - Treatment completed on 03/28/2025 Severe generalized weakness - Related to acute illness and chronic comorbidities - PT and OT following - current recommendations are for placement but unclear if family will be amenable to this Intermittent acute hypotension on chronic hypotension - Patient transferred to PCU but patient with asymptomatic hypotension still transferred back to ICU - Remains stable - Continue midodrine - Will transition Coreg to metoprolol 25 mg p.o. twice daily Troponin elevation - Low suspicion of NSTEMI - Likely related to acute decompensated heart failure in addition to poor renal function - No further ischemic workup for now - Cardiology is following-appreciate input New onset A-fib with RVR - Remains in sinus rhythm with intermittent ectopy - Continue p.o. amiodarone 200 mg daily - With hypotension overnight we will transition Coreg to metoprolol - Continue Eliquis 5 mg p.o. twice daily - Discontinue aspirin at discharge - Continue to monitor on telemetry - Cardiology was following and off BRYANNA on CKD stage IIIb - Creatinine at baseline appears to be about 1.5 - Suspect cardiorenal physiology -Continue midodrine 10 mg p.o. 3 times daily - HD per nephrology - Unclear at this time if this will be chronic hemodialysis or temporary Thoracic aortic aneurysm - up to 5.3 cm - Blood pressure control - Outpatient follow-up - Patient is overall poor surgical candidate DM-2 - Oral agents on hold - Continue subcu insulin as ordered but monitor closely with worsening renal function - Fasting blood sugars have been stable Hypertension - Transition Coreg to metoprolol due to blood pressure issues - Monitor blood pressure and wean midodrine as able with reintroduction of antihypertensives as appropriate History of VTE - Continue Eliquis Mild chronic anemia - Stable ANDRADE/obesity hypoventilation syndrome - Continue BiPAP nightly and as needed - Continue supplemental oxygen as needed after extubation DVT prophylaxis/GI prophylaxis - Protonix p.o. twice daily - Eliquis 5 mg p.o. twice daily CODE STATUS - DNR CCA okay for short-term intubation Charges/Coding Visit Charges Inpatient E&M: 29999 Subs Hosp L2
[2025-03-29 09:45] LABS: Hematocrit 41.4 % (40-54); Hemoglobin 12.3 g/dL (13.0-16.5); Immature Granulocytes Count 0.130 X10^3/uL (0.0-0.0); Mean Corp Hgb Conc 29.7 g/dL (32-36); Mean Corpuscular Volume 96.5 fL (80-94); Mean Platelet Vol. 9.7 fl (6.2-12.0); NRBC Flagged by Analyzer 0 % (0-5); POSITIVE DIFFERENTIAL YES; Platelet Count 170 K/mm3 (150-450); RBC Distribution Width CV 14.9 % (11.6-14.6); RBC Distribution Width SD 52.8 fl (35.1-43.9); Red Blood Count 4.29 M/mm3 (4.6-6.2); White Blood Count 6.4 K/mm3 (4.4-11.0)
[2025-03-29] MEDS: APIXABAN 5 MG TABLET PO ×2 (10:27→22:04)
[2025-03-29] MEDS: 0.9% Saline Lock 10 ML Syringe IV (10:28)
[2025-03-29 10:31] LABS: Anion Gap 15 (5-15); BUN 70 mg/dL (4-19); BUN/Creat Ratio 14.2 RATIO (10-20); Calcium,Total 9.1 mg/dL (7.6-11.0); Carbon Dioxide 22.7 mmol/L (21.0-32.0); Chloride 101 mmol/L (98-108); Estimated Creatinine Clearance 20.23 ml/min (50-250); Glucose 173 mg/dL (70-99); Potassium 5.3 mmol/L (3.3-5.1)
--- NOTE | 2025-03-29 13:33 | CASEMGMT ---
TC to pt son Noé, he has chosen [facility] as next choice for [facility]F. Referral sent to [facility] via [facility] at this time.
--- NOTE | 2025-03-29 14:25 | NURSING ---
education re chronic illness deferred till pt can stay awake longer than 5 min.
[2025-03-30] VITALS: PULSE 65
[2025-03-30 02:03] VITALS: PULSE 69; RESP 14; RESP 24; O2SAT 98
[2025-03-30 04:00] VITALS: PULSE 71
[2025-03-30] MEDS: 0.9% Saline Lock 10 ML Syringe IV ×4 (04:21→11:00)
[2025-03-30 04:31] LABS: Hematocrit 39.8 % (40-54); Hemoglobin 12.1 g/dL (13.0-16.5); Mean Corp Hgb Conc 30.4 g/dL (32-36); Mean Corpuscular Volume 95.4 fL (80-94); Mean Platelet Vol. 10.0 fl (6.2-12.0); Platelet Count 214 K/mm3 (150-450); RBC Distribution Width CV 14.9 % (11.6-14.6); RBC Distribution Width SD 52.0 fl (35.1-43.9); Red Blood Count 4.17 M/mm3 (4.6-6.2); White Blood Count 7.2 K/mm3 (4.4-11.0)
[2025-03-30 04:32] VITALS: BMI 46.3
[2025-03-30 04:56] LABS: Anion Gap 16 (5-15); BUN 78 mg/dL (4-19); BUN/Creat Ratio 12.4 RATIO (10-20); Calcium,Total 8.6 mg/dL (7.6-11.0); Carbon Dioxide 23.0 mmol/L (21.0-32.0); Chloride 100 mmol/L (98-108); Estimated Creatinine Clearance 16.05 ml/min (50-250); Glucose 147 mg/dL (70-99); Potassium 4.9 mmol/L (3.3-5.1)
[2025-03-30 05:16] VITALS: PULSE 76; RESP 14; RESP 29; O2SAT 92
--- NOTE | 2025-03-30 07:00 | PCM.PN.HOSP ---
Reason for Visit Chief Complaint: Dyspnea, worse with exertion. Objective Data Objective Data Vital Signs: Vital Signs Temp Pulse Resp BP Pulse Ox O2 Del Method O2 Flow Rate 98.0 F 76 29 H 108/64 92 CPAP 4 03/29/25 21:00 03/30/25 05:16 03/30/25 05:16 03/29/25 22:05 03/30/25 05:16 03/30/25 03:46 03/29/25 15:00 FiO2 40 03/30/25 05:16 Oxygen Flow Rate (L/min) 4 Oxygen Delivery Method CPAP Weight: 150 kg Body Mass Index (BMI) 46.3 Intake & Output: Intake and Output for Last 24 Hours 03/28/25 03/29/25 03/30/25 23:59 23:59 23:59 Intake Total 300 / 400 690 / 930 240 / 240 Output Total 3855 / 3855 Balance -3555 / -3455 660 / 900 230 / 230 Lab / Micro Data 03/30/25 04:20 03/30/25 04:20 Labs: Laboratory Results - last 24 hr 03/29/25 09:30: WBC 6.4, RBC 4.29 L, Hgb 12.3 L, Hct 41.4, MCV 96.5 H, MCH 28.7, MCHC 29.7 L, RDW Std Deviation 52.8 H, RDW Coeff of Paddy 14.9 H, Plt Count 170, MPV 9.7, Immature Gran % (Auto) 2.000 H, Neut % (Auto) 83.2 H, Lymph % (Auto) 5.7 L, [place] % (Auto) 6.6, Eos % (Auto) 1.9, Baso % (Auto) 0.6, Absolute Neuts (auto) 5.3, Absolute Lymphs (auto) 0.36 L, Nucleated RBC % 0, Sodium 139, Potassium 5.3 H, Chloride 101, Carbon Dioxide 22.7, Anion Gap 15, BUN 70 H, Creatinine 4.92 H, Estim Creat Clear Calc 20.23 L, Est GFR (MDRD) Non-Af 12 L, BUN/Creatinine Ratio 14.2, Glucose 173 H, Calcium 9.1 03/29/25 10:35: POC Glucose 165 H 03/29/25 16:36: POC Glucose 153 H 03/29/25 22:02: POC Glucose 161 H 03/30/25 04:20: WBC 7.2, RBC 4.17 L, Hgb 12.1 L, Hct 39.8 L, MCV 95.4 H, MCH 29.0, MCHC 30.4 L, RDW Std Deviation 52.0 H, RDW Coeff of Paddy 14.9 H, Plt Count 214, MPV 10.0, Sodium 139, Potassium 4.9, Chloride 100, Carbon Dioxide 23.0, Anion Gap 16 H, BUN 78 H, Creatinine 6.28 H, Estim Creat Clear Calc 16.05 L, Est GFR (MDRD) Non-Af 9 L, BUN/Creatinine Ratio 12.4, Glucose 147 H, Calcium 8.6 Micro: Microbiology 03/25/25 20:05 Sputum, Induced/Lukens Gram Stain - Final 03/25/25 20:05 Sputum, Induced/Lukens Respiratory Culture - Final Staphylococcus aureus 03/22/25 19:54 Sputum, Expectorated/Coughed Gram Stain - Final 03/22/25 19:54 Sputum, Expectorated/Coughed Respiratory Culture - Final Staphylococcus aureus 03/22/25 11:00 Urine, Clean Catch Legionella Antigen - Final 03/22/25 11:00 Urine, Clean Catch Streptococcus pneumoniae Antigen (M - Final 03/21/25 22:30 Mucosa - Nose Respiratory Panel (PCR) - Final Rhythm Strip Rhythm Strip: Sinus Rhythm Rate: 82 Ectopy: None and PVC(s)
[2025-03-30 07:25] VITALS: PULSE 74; RESP 14; RESP 27; O2SAT 90
--- NOTE | 2025-03-30 07:29 | PN.RENAL_ITS ---
Subjective Subjective Following for dialysis dependent BRYANNA. Patient remains on BiPAP. However, he denies chest pain, dyspnea, or nausea. Lower extreme edema has improved with hemodialysis and ultrafiltration. Objective Data Objective Data Vital Signs: Vital Signs Temp Pulse Resp BP Pulse Ox O2 Del Method O2 Flow Rate 98.0 F 74 27 H 108/64 90 CPAP 4 03/29/25 21:00 03/30/25 07:25 03/30/25 07:25 03/29/25 22:05 03/30/25 07:25 03/30/25 03:46 03/29/25 15:00 FiO2 40 03/30/25 07: Oxygen Flow Rate (L/min) 4 Oxygen Delivery Method CPAP Weight: 150 kg Body Mass Index (BMI) 46.3 Intake & Output: Intake and Output for Last 24 Hours 03/28/25 03/29/25 03/30/25 23:59 23:59 23:59 Intake Total 300 / 400 690 / 930 240 / 240 Output Total 3855 / 3855 30 / 30 Balance -3555 / -3455 660 / 900 230 / 230 Lab / Micro Data 03/30/25 04:20 03/30/25 04:20 Labs: Laboratory Results - last 24 hr 03/29/25 09:30: WBC 6.4, RBC 4.29 L, Hgb 12.3 L, Hct 41.4, MCV 96.5 H, MCH 28.7, MCHC 29.7 L, RDW Std Deviation 52.8 H, RDW Coeff of Paddy 14.9 H, Plt Count 170, MPV 9.7, Immature Gran % (Auto) 2.000 H, Neut % (Auto) 83.2 H, Lymph % (Auto) 5.7 L, Cherry % (Auto) 6.6, Eos % (Auto) 1.9, Baso % (Auto) 0.6, Absolute Neuts (auto) 5.3, Absolute Lymphs (auto) 0.36 L, Nucleated RBC % 0, Sodium 139, P otassium 5.3 H, Chloride 101, Carbon Dioxide 22.7, Anion Gap 15, BUN 70 H, C reatinine 4.92 H, Estim Creat Clear Calc 20.23 L, Est GFR (MDRD) Non-Af 12 L, BUN/Creatinine Ratio 14.2, Glucose 173 H, Calcium 9.1 03/29/25 10:35: POC Glucose 165 H 03/29/25 16:36: POC Glucose 153 H 03/29/25 22:02: POC Glucose 161 H 03/30/25 04:20: WBC 7.2, RBC 4.17 L, Hgb 12.1 L, Hct 39.8 L, MCV 95.4 H, MCH 29.0, MCHC 30.4 L, RDW Std Deviation 52.0 H, RDW Coeff of Paddy 14.9 H, Plt Count 214, MPV 10.0, Sodium 139, Potassium 4.9, Chloride 100, Carbon Dioxide 23.0, A nion Gap 16 H, BUN 78 H, Creatinine 6.28 H, Estim Creat Clear Calc 16.05 L, Est GFR (MDRD) Non-Af 9 L, BUN/Creatinine Ratio 12.4, Glucose 147 H, Calcium 8.6 Micro: Microbiology 03/25/25 20:05 Sputum, Induced/Lukens Gram Stain - Final 03/25/25 20:05 Sputum, Induced/Lukens Respiratory Culture - Final Staphylococcus aureus 03/22/25 19:54 Sputum, Expectorated/Coughed Gram Stain - Final 03/22/25 19:54 Sputum, Expectorated/Coughed Respiratory Culture - Final Staphylococcus aureus 03/22/25 11:00 Urine, Clean Catch Legionella Antigen - Final 03/22/25 11:00 Urine, Clean Catch Streptococcus pneumoniae Antigen (M - Final 03/21/25 22:30 Mucosa - Nose Respiratory Panel (PCR) - Final Rhythm Strip Rhythm Strip: Sinus Rhythm Rate: 82 Ectopy: None and PVC(s) Physical Exam Narrative On BiPAP no JVD s1s2 normal with no murmurs Diminished breath sounds posteriorly abdomen is obese, soft, nontender Trace lower extreme edema Assessment & Plan Assessment/Plan (1) Acute kidney injury: PLAN: Baseline creatinine prior to this admission appears to be around 1.5. Currently creatinine is 2.2, BUN is disproportionately high, likely related to cardiorenal syndrome physiology. Urine analysis shows microscopic hematuria and proteinuria. He has never seen blood in his urine subjectively. 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 Appears volume overloaded. Weight gain is unclear. Continue IV Lasix for now. 03/23/2025. Moderate response to IV Lasix. BUN is higher, creatinine higher. Breathing is still not so great. Lower extremity edema about the same. We discussed about worsening renal failure in the setting of congestive heart failure. We discussed about the potential for dialysis. It seems he had renal failure in 2022 under similar circumstances. Was on dialysis for about 2 weeks and recovered. He is familiar with the process. Continue IV Lasix for now, if renal function continues to worsen, will consider short-term dialysis. All questions answered. 03/24/2025; hypervolemic BRYANNA superimposed on CKD stage III. Patient remains on Lasix drip. Urine output documented around 600 mL yesterday. Remains on O2 3 to 4 L nasal cannula. Weight up ~1kg today, up to 161 kg. Creatinine is worsening, 3.22 today. BUN worsening up to 124 today. Reviewed with patient that he is likely heading towards needing renal placement therapy. Patient had been on hemodialysis at [facility] and also outpatient kidney center in [place] about 2 years ago therefore familiar with hemodialysis. Patient states wants to talk with his but if dialysis is necessary/recommended he will be in agreement. There is no urgent need for hemodialysis today, potassium and bicarb acceptable. Reviewed nephrology plan with patient today, questions answered. Will review nephrology plan with Dr. Maya. Labs ordered for morning. Recommend strict urine output measurement. Assessment and plan reviewed with Dr. Gauthier. 03/25/2025; kidney function worsening, significantly fluid overloaded, creatinine 3.95, BUN 128. Potassium 5.4 today, received dose of Kayexalate. Patient is off Lasix drip due to hypotension, went into A-fib and on IV amiodarone and heparin. Urine output around 1.1 L yesterday. On oral midodrine. Plan is for patient to have tunneled hemodialysis catheter placed today. Depending on timing we will plan for dialysis afterwards. Patient will dialyze on 2K bath and attempt fluid removal as patient/blood pressure tolerates. Case management consulted for dialysis arrangements/discharge planning to [facility], Dx: BRYANNA. We will continue to monitor for renal recovery. Assessment and plan reviewed with Dr. Gauthier. 03/26/2025. Events noted. Had respiratory failure after line placement. Intubated. Chest x-ray showed significant pulmonary edema. Was started on CRRT, tolerated fluid removal. This morning switched over to hemodialysis mode. Fluid removal 4 to 5 L as tolerated. Minimal oxygen requirements, FiO2 30%, PEEP of 8. Peripheral edema present. Discussed with ICU attending. 03/27/25. dw ICU attending. possible extubation today. will likely plan for HD tomorrow as well and then 3 times a week. significantly better edema. 03/28/25. HD as ordered. will likely keep MWF schedule. [facility] hospitalist. insurance issues. likely will need HD at the time of dc. 03/30/2025: Patient was last dialyzed with [facility] on 03/28/2025. Patient remains anuric. Solute is controlled. Patient continues to require CPAP. Will try high-dose furosemide IV today. Will plan on dialyzing patient again tomorrow on 03/31/2025 with more volume removal.
--- NOTE | 2025-03-30 12:14 | NURSING ---
pt apneic and asystolic, family aware. Dr. Maya notified
--- NOTE | 2025-03-30 12:29 | PCM.DEATH ---
Preliminary Cause of Preliminary Cause of Preliminary Cause of : Acute on Chronic Hypercapnic and Hypoxic Respiratory Failure-multifactorial Acute on chronic renal failure Date of Admission: 03/21/25 Date of : 03/30/25 Principle Diagnosis Acute on chronic hypercapnic and hypoxic respiratory failure Problem List: Active and Suspected Problems (Updated 03/25/25 @ 11:07 by LIZ Monsivais) Goals of care, counseling/discussion (Acute) Palliative care encounter (Acute) Hyperkalemia (Acute) Elevated troponin (Acute) Atrial fibrillation (Acute) NSTEMI, initial episode of care (Acute) Acute kidney injury (Acute) Hx of cardiomyopathy (Acute) CHF (congestive heart failure) (Acute) Hypoxia (Acute) Breath shortness (Acute) Hospital Course Mr. Delgado is a 69-year-old male who presented to the emergency department [facility] on 03/21/2025 with chief complaint of dyspnea. Patient was chronically on oxygen and suffers from obesity hypoventilation syndrome/COPD/severe ANDRADE and had been having worsening dyspnea most notably with exertion but also at rest at home. He reported he was unable to lie flat. He denied cough, fever, or chills. Patient did not report increased weight however he had severe bilateral lower extremity swelling left greater than right. Left was greater due to previous ankle fracture. Vital signs on presentation showed temperature of 97.6, heart rate 85, blood pressure 112/78, respiratory rate was 24 and pulse ox was 95% on nasal cannula at 5 L. CBC was overtly unremarkable. Chemistry panel showed worsening renal function with a creatinine of 2.21 and a BUN of 113 with a estimated GFR of 31. Initial troponin was 548 with a delta of 559. proBNP was 31,537. Chest x-ray showed patchy bilateral opacities and EKG showed sinus rhythm with a left bundle branch block that was chronic and no evidence of acute ischemia. He was admitted to PCU started on IV diuretics, placed on BiPAP. He had intermittent issues with blood pressure and he was assessed for infection. He was started on antibiotics with ceftriaxone and azithromycin. Cultures did reveal MSSA pneumonia and he had a complete course of treatment prior to . Echocardiogram was done on 03/22/2025 and showed an EF of 35% with moderate to severe global LV hypokinesis, moderate LA enlargement, trivial mitral valve insufficiency, moderate AAS and right ventricular systolic pressure was unable to be assessed due to insufficient tricuspid regurgitant envelope however I do suspect he likely has pulmonary hypertension with his underlying comorbidities. Despite IV diuretics his renal function worsened so nephrology was consulted. Cardiology was also consulted. It was felt that the etiology of his renal dysfunction was likely cardiorenal. Renal ultrasound showed bilaterally enlarged kidneys, nonobstructing right renal calculi, small simple exophytic left renal cyst and no hydronephrosis. Renal function continued to worsen and respiratory status declined some so we plan for tunneled dialysis catheter. This was done on 03/25/2025. He also developed A-fib with RVR during this time. Which is a new diagnosis for him. He was treated with amiodarone bolus and drip and then transition to oral amiodarone and Eliquis. He did ultimately convert back to normal sinus rhythm during his hospital course. Unfortunately, postprocedure he developed worsening hypercapnia and hypoxia which required intubation. Intubation was pursued and CVVHD was initiated. CVVHD was able to be discontinued on 03/26/2025. Repeat chest x-ray looked improved from the day previous. He was transition to intermittent hemodialysis and tolerated well. Unfortunately over the weekend with his last dialysis being on 03/28/2025 the patient did develop worsening respiratory status and was requiring his BiPAP fairly continuously. Earlier in his hospitalization we did have palliative care evaluate the patient and he essentially kicked her out of the room saying he was not interested at that time hearing what she had to say. He was a DNR CCA okay for intubation at that time. That was prior to the dialysis catheter placement. Patient and family, after learning that his dialysis was going to be permanent, elected to make the patient comfort care and withdraw care. Patient was taken off BiPAP and comfort medications were given. Patient slowly decline, became apneic and went asystole. No heart tones were auscultated, no response to sternal rub, no spontaneous breath sounds, no pulses were palpated. Time of was 12:14 PM on 03/30/2025. Assessment & Plan Assessment/Plan (1) Elevated troponin: (2) Atrial fibrillation: (3) Acute kidney injury: (4) CHF (congestive heart failure): QUALIFIERS: Heart failure type: combined systolic and diastolic Heart failure chronicity: acute on chronic Qualified Code(s): I50.43 - Acute on chronic combined systolic (congestive) and diastolic (congestive) heart failure PLAN: Plan Discharge diagnoses: Acute on chronic hypoxic and hypercapnic respiratory failure Acute on chronic HFrEF MSSA pneumonia Severe generalized weakness and debility New onset A-fib with RVR Acute on chronic hypotension Troponin elevation secondary to compromised renal function and acute heart failure BRYANNA CKD stage IIIb Thoracic aortic aneurysm DM-2 Hypertension History of VTE Chronic anemia Obesity Obesity hypoventilation syndrome Visit Charges Inpatient E&M: 22569 Disch Hosp >30min
== END 2025-03-30 15:30 | DRG 291 ==
LOC: ED 20:19 → PCU 21:14 → ICU 03-25 17:03 → PCU 03-28 18:18 → ICU 03-29 03:52
PROVIDERS: Anesthesiology; Internal Medicine; Internal Medicine Nephrology; Surgery; Admitting Provider Family Medicine; Emergency Provider Emergency Medicine; PCP Family Medicine; Visit Provider Internal Medicine
PROC: 02HV33Z Insertion of Infusion Device into Superior Vena Cava, Percutaneous Approach (ICD-10-PCS; principal; 2025-03-25 13:45)
DX: I13.0 Hypertensive heart and chronic kidney disease with heart failure and stage 1 through stage 4 chronic kidney disease, or unspecified chronic kidney disease (principal); I50.43 Acute on chronic combined systolic (congestive) and diastolic (congestive) heart failure; J15.211 Pneumonia due to Methicillin susceptible Staphylococcus aureus; J95.821 Acute postprocedural respiratory failure; E66.2 Morbid (severe) obesity with alveolar hypoventilation; J44.0 Chronic obstructive pulmonary disease with (acute) lower respiratory infection; I24.89 Other forms of acute ischemic heart disease; Z68.43 Body mass index [BMI] 50.0-59.9, adult; N17.9 Acute kidney failure, unspecified; E11.51 Type 2 diabetes mellitus with diabetic peripheral angiopathy without gangrene; N18.32 Chronic kidney disease, stage 3b; D63.1 Anemia in chronic kidney disease; I35.0 Nonrheumatic aortic (valve) stenosis; I71.20 Thoracic aortic aneurysm, without rupture, unspecified; I27.20 Pulmonary hypertension, unspecified; I48.91 Unspecified atrial fibrillation; I42.0 Dilated cardiomyopathy; I89.0 Lymphedema, not elsewhere classified; I25.10 Atherosclerotic heart disease of native coronary artery without angina pectoris; E78.5 Hyperlipidemia, unspecified; E87.5 Hyperkalemia; E11.22 Type 2 diabetes mellitus with diabetic chronic kidney disease; I95.2 Hypotension due to drugs; D72.810 Lymphocytopenia; I95.89 Other hypotension; Z79.4 Long term (current) use of insulin; I42.8 Other cardiomyopathies; Z66 Do not resuscitate; T46.2X5A Adverse effect of other antidysrhythmic drugs, initial encounter; R31.29 Other microscopic hematuria; E66.813 Obesity, class 3; Z79.84 Long term (current) use of oral hypoglycemic drugs; T88.59XA Other complications of anesthesia, initial encounter; R80.9 Proteinuria, unspecified; R53.81 Other malaise; R53.1 Weakness; Z23 Encounter for immunization; Z79.82 Long term (current) use of aspirin; Z79.899 Other long term (current) drug therapy; Z86.718 Personal history of other venous thrombosis and embolism; Z86.711 Personal history of pulmonary embolism
CPT/HCPCS: 31500; 31720; 36415; 36600; 71045; 71250; 74018; 76000; 76770; 80048; 80053; 80061; 80069; 82550; 82803; 82962; 83036; 83735; 83880; 84100; 84132; 84145; 84443; 84478; 84484; 85018; 85025; 85027; 85610; 85730; 87070; 87077; 87186; 87205; 87340; 87449; 87633; 90937; 93005; 93306; 94002; 94003; 94640; 94660; 94668; 94760; 94762; 97116; 97162; 97165; 97530; 97535; 97802; 97803; 99252; 99284; C1750; J2020; P9047; Q9957; A4216; C8929; G0257; G0463; J0612; J0696; J1938; J2405